=== PATIENT | female | born 1985 | race Caucasian/White ===

== ENCOUNTER 2025-03-16 18:32 | Emergency (ER) | payer MEDICAID, SELFPAY ==
--- OUTSIDE RECORDS SUMMARY | 2025-01-14 14:40 | XMS_ITS | Encounter Summary ---
Author Organization [place] [address] Care Team Providers Care Envelope Sealer Operator Name Role Phone Rodriguez Lindo Primary Care Provider [phone] Encounter Details Date Type Department Care Team (Latest Contact Info) Description 01/14/2025 2:40 PM EDT - 01/14/2025 11:59 PM EDT Hospital Encounter [facility] [place], [place] [id number] Malignant neoplasm of overlapping sites of left breast in female, estrogen receptor positive (HCC) (Primary Dx); Low back pain, unspecified back pain laterality, unspecified chronicity, unspecified whether sciatica present Discharge Disposition: Home or Self Care Social History Tobacco Use Types Packs/Day Years Used Date Smoking Tobacco: Every Day Cigarettes 0.5 22.4 Started: 11/03/2002 Smokeless Tobacco: Never Alcohol Use Standard Drinks/Week Comments Not Currently 0 (1 standard drink = 0.6 oz pur e alcohol) PHQ-2 Answer Date Recorded PHQ-2 Total Score 0 01/14/2025 Sexually Active Control Partners Comments Yes Comments No Sex and Gender Information Value Date Recorded Sex Assigned at Not on file Legal Sex Female 1:34 AM EDT Gender Identity Not on file Sexual Orientation Not on file documented as of this encounter Functional Status * PHQ-9 Total Score Answer Date of Assessment Author 0 01/14/2025 11:46 AM EDT Rin Chavez MA * Question Answer Date of Assessment Author Little interest or pleasure in doing things 0 01/14/2025 11:46 AM Tammy Bertrand MA Feeling down, depressed, or hopeless 0 01/14/2025 11:46 AM Tammy Bertrand MA PHQ-2 Total Score 0 01/14/2025 11:46 AM Tammy Bertrand MA documented as of this encounter Medications at Time of Discharge albuterol (PROVENTIL HFA;VENTOLIN HFA) 90 mcg/actuation Inhl HFA Aerosol Inhaler Inhale 2 Puffs into the lungs every 6 hours as needed. 09/10/2021 buPROPion (WELLBUTRIN SR) 150 mg Oral tablet sustained-release 12 hrIndications:Lesly bethea neoplasm of overlapping sites of left breast in female, estrogen receptor positive (HCC),Low back pain, unspecified back pain laterality, unspecified chronicity, unspecified whether sciatica present Take 1 Tablet by mouth 2 times daily. 60 Tablet 4 01/14/2025 ondansetron (ZOFRAN) 4 mg Oral TabletIndications: Malignant neoplasm of overlapping sites of left breast in female, estrogen receptor positive (HCC),Low back pain, unspecified back pain laterality, unspecified chronicity, unspecified whether sciatica present Take 1 Tablet by mouth every 8 hours as needed for Nausea. 45 Tablet 2 01/14/2025 oxybutynin (DITROPAN-XL) 5 mg Oral Tablet Extended Rel 24 hrIndications:Lesly bethea neoplasm of overlapping sites of left breast in female, estrogen receptor positive (HCC),Low back pain, unspecified back pain laterality, unspecified chronicity, unspecified whether sciatica present Take 1 Tablet by mouth daily. 30 Tablet 2 01/14/2025 promethazine (PHENERGAN) 12.5 mg Oral TabletIndications: Malignant neoplasm of overlapping sites of left breast in female, estrogen receptor positive (HCC),Low back pain, unspecified back pain laterality, unspecified chronicity, unspecified whether sciatica present Take 1 Tablet by mouth every 6 hours as needed for Nausea. 30 Tablet 2 01/14/2025 documented as of this encounter Discharge Disposition Disposition Code Departure Means Destination Home or Self Care documented in this encounter Plan of Treatment Upcoming Encounters Date Type Department Care Team (Late st Contact Info) Description 03/17/2025 1:00 PM EDT Appointment [facility] [place] [address] 04/15/2025 8:45 AM EDT Appointment [facility] [place], [place] [id number] 04/15/2025 9:15 AM EDT [facility]ment [facility] [place] [address] Vane Hollingsworth MD [address] [place] [phone] documented as of this encounter Procedures Procedure Name Priority Date/Time Associated Diagnosis Comments CBC WITH DIFF Routine 01/14/2025 2:59 PM EDT Malignant neoplasm of overlapping sites of left breast in female, estrogen receptor positive (HCC) Low back pain, unspecified back pain laterality, unspecified chronicity, unspecified whether sciatica present COMPREHENSIVE METABOLIC PANEL Routine 01/14/2025 2:59 PM EDT Malignant neoplasm of overlapping sites of left breast in female, estrogen receptor positive (HCC) Low back pain, unspecified back pain laterality, unspecified chronicity, unspecified whether sciatica present documented in this encounter Results * (ABNORMAL) COMPREHENSIVE METABOLIC PANEL (01/14/2025 2:59 PM EDT) Sodium 144 136 - 145 mmol/L 01/14/2025 3:26 PM EDT [facility] Potassium 4.2 3.5 - 5.0 mmol/L 01/14/2025 3:26 PM EDT [facility] Chloride 111(H) 98 - 107 mmol/L 01/14/2025 3:26 PM EDT [facility] Total CO2 24 22 - 29 mmol/L 01/14/2025 3:26 PM EDT [facility] Anion Gap 9 7 - 16 mmol/L 01/14/2025 3:26 PM EDT [facility] Calcium 8.9 8.6 - 10.4 mg/dL 01/14/2025 3:26 PM EDT [facility] Glucose Lvl 100(H) 70 - 99 mg/dL 01/14/2025 3:26 PM EDT [facility] BUN 10 6 - 20 mg/dL 01/14/2025 3:26 PM EDT [facility] Creatinine 0.89 0.51 - 1.30 mg/dL 01/14/2025 3:26 PM EDT [facility] Albumin 4.0 3.5 - 5.2 gm/dL 01/14/2025 3:26 PM EDT [facility] Total Protein 6.5 6.4 - 8.3 gm/dL 01/14/2025 3:26 PM EDT [facility] Bili Total <0.2(L) 0.2 - 1.3 mg/dL 01/14/2025 3:26 PM EDT [facility] ALT 7 <=41 U/L 01/14/2025 3:26 PM EDT [facility] AST 12 <=40 U/L 01/14/2025 3:26 PM EDT [facility] Alk Phos 79 36 - 123 U/L 01/14/2025 3:26 PM EDT [facility] eGFR (CKD-EPIcr 2020) 84 >=60 mL/min/1.7 3 m2 01/14/2025 3:26 PM EDT [facility] Comment:Estimated GFR was ca lculated using the CKD-EPIcr (2020) equation refit without race. The equation is recommended by the National Kidney Foundation - [place] [employer] of Nephrology Task Force. Blood VENOUS BLOOD / Unknown Venipuncture / Unknown 01/14/2025 2:59 PM EDT 01/14/2025 2:59 PM EDT us Vane Hollingsworth MD CHEMISTRY ORDERABLES Final Result [facility] [address] [place] [address] * (ABNORMAL) CBC WITH DIFF (01/14/2025 2:59 PM EDT) WBC 5.3 3.7 - 10.3 x10(3)/mc L 01/14/2025 3:02 PM EDT [facility] RBC 3.45(L) 3.90 - 5.20 x10(6)/mc L 01/14/2025 3:02 PM EDT [facility] Hgb 10.6(L) 11.2 - 15.7 g/dL 01/14/2025 3:02 PM EDT [facility] Hct 33.9(L) 34.0 - 45.0 % 01/14/2025 3:02 PM EDT [facility] MCV 98.3 80.0 - 100.0 fL 01/14/2025 3:02 PM EDT [facility] MCH 30.7 26.0 - 34.0 pg 01/14/2025 3:02 PM EDT [facility] MCHC 31.3 30.7 - 35.5 g/dL 01/14/2025 3:02 PM EDT [facility] RDW 15.0(H) <=14.9 % 01/14/2025 3:02 PM EDT [facility] Platelet 280 155 - 369 x10(3)/mc L 01/14/2025 3:02 PM EDT [facility] MPV 9.0 8.8 - 12.5 fL 01/14/2025 3:02 PM EDT [facility] Neut # Prelim 3.1 1.6 - 6.1 x10(3)/mc L 01/14/2025 3:02 PM [facility] Comment:Preliminary automate d absolute neutrophil count. Value may change if manual differential is indicated. Neut Percent 58.3 % 01/14/2025 3:02 PM EDT [facility] Comment:Neutrophils equals s egs plus bands Imm Gran% 0.2 % 01/14/2025 3:02 PM T [facility] Comment:Automated count of m etamyelocytes, myelocytes and promyelocytes. Lymph Percent 19.6 % 01/14/2025 3:02 PM EDT [facility] [place] Percent 17.1 % 01/14/2025 3:02 PM EDT [facility] Eos Percent 4.0 % 01/14/2025 3:02 PM EDT [facility] Baso Percent 0.8 % 01/14/2025 3:02 PM EDT [facility] Neut # 3.1 1.6 - 6.1 x10(3)/mc L 01/14/2025 3:02 PM EDT [facility] Comment:Neutrophils equals s egs plus bands IMMGRAN# 0.0 0.0 - 0.1 x10(3)/mc L 01/14/2025 3:02 PM EDT [facility] Comment:Automated count of m etamyelocytes, myelocytes and promyelocytes. An absolute IG <0.1 is reported as 0.0. Lymph # 1.0(L) 1.2 - 3.9 x10(3)/mc L 01/14/2025 3:02 PM EDT [facility] [place] # 0.9 0.3 - 0.9 x10(3)/mc L 01/14/2025 3:02 PM EDT [facility] Eos# 0.2 0.0 - 0.5 x10(3)/mc L 01/14/2025 3:02 PM EDT [facility] Baso # 0.0 0.0 - 0.1 x10(3)/mc L 01/14/2025 3:02 PM EDT [facility] Blood VENOUS BLOOD / Unknown Venipuncture / Unknown 01/14/2025 2:59 PM EDT 01/14/2025 2:59 PM EDT us Vane Hollingsworth MD HEMATOLOGY ORDERABLE S Final Result [facility] [address] [place] [address] documented in this encounter Visit Diagnoses Diagnosis Malignant neoplasm of overlapping sites of left breast in female, estrogen receptor positive (HCC)- Primary Low back pain, unspecified back pain laterality, unspecified chronicity, unspecified whether sciatica present documented in this encounter Administered Medications Inactive Administered Medications - up to 1 most recent administrations Medication Order MAR Action Action Date Dose Rate Site heparin flush 100 unit/mL injection 500 Units 500 Units, Intravenous, PRN, Starting on Fri01/14/25 at 1505, Until 01/15/25 at 0410, Line Care, For Venous Access Device care and maintenance., Dx: 1. Malignant neoplasm of overlapping sites of left breast in female, estrogen receptor positive (HCC)Indications:Malignant neoplasm of overlapping sites of left breast in female, estrogen receptor positive (HCC) Given 01/14/2025 3:06 PM EDT 500 Units sodium chloride 0.9 % sterile syringe Intravenous, PRN, Starting on Fri01/14/25 at 1505, Until 01/15/25 at 0410, Line Care, For initial access of Venous Access Device., Dx: 1. Malignant neoplasm of overlapping sites of left breast in female, estrogen receptor positive (HCC)Indications:Malignant neoplasm of overlapping sites of left breast in female, estrogen receptor positive (HCC) Given 01/14/2025 3:05 PM EDT 10 mL sodium chloride 0.9% syringe Intravenous, PRN, Starting on Fri01/14/25 at 1505, Until 01/15/25 at 0410, Line Care, For Venous Access Device care and maintenance., Dx: 1. Malignant neoplasm of overlapping sites of left breast in female, estrogen receptor positive (HCC)Indications:Malignant neoplasm of overlapping sites of left breast in female, estrogen receptor positive (HCC) Given 01/14/2025 3:05 PM EDT 10 mL documented in this encounter Care Teams Envelope Sealer Operator Relationship Specialty Start Date End Date Rodriguez Lindo [address] [place] [phone] PCP - General Clinic/Center - [facility] ([facility]) 12/03/16 documented as of this encounter
--- OUTSIDE RECORDS SUMMARY | 2025-02-01 08:00 | XMS_ITS | Encounter Summary ---
Author Organization [place] [address] Care Team Providers Care Property Field Inspector Name Role Phone Rodriguez Lindo Primary Care Provider +1- [phone] Poli Felix RN Unavailable Unavailable Encounter Details Date Type Department Care Team (Latest Contact Info) Description 02/01/2025 8:00 AM EDT - 02/01/2025 8:25 AM EDT Hospital Encounter [place] [address] Malignant neoplasm of overlapping sites of left [...] 02/01/2025 8:00 AM Laisha Bee MA * [place] Suicide Severity Rating Scale (Q shift for [...] PM EDT [facility]ointment [facility] [place], [place] [phone] 04/15/2025 8:45 AM EDT Appointment [place] [address] 04/15/2025 9:15 AM EDT [facility]ment [facility] [place] [address] Vane Hollingsworth MD [address] [place] [address] [phone] documented as of this encounter Procedures Procedure [...] - 145 mmol/L 02/01/2025 8:42 AM EDT [facility] Potassium 4.3 3.5 - 5.0 mmol/L 02/01/2025 8:42 AM EDT [facility] Chloride 105 98 - 107 mmol/L 02/01/2025 8:42 AM EDT [facility] Total CO2 21(L) 22 - 29 mmol/L 02/01/2025 8:42 AM EDT [facility] Anion Gap 14 7 - 16 mmol/L 02/01/2025 8:42 AM EDT [facility] Calcium 10.0 8.6 - 10.4 mg/dL 02/01/2025 8:42 AM EDT [facility] Glucose Lvl 128(H) 70 - 99 mg/dL 02/01/2025 8:42 AM EDT [facility] BUN 15 6 - 20 mg/dL 02/01/2025 8:42 AM EDT [facility] Creatinine 0.71 0.51 - 1.30 mg/dL 02/01/2025 8:42 AM EDT [facility] Albumin 4.3 3.5 - 5.2 gm/dL 02/01/2025 8:42 AM EDT [facility] Total Protein 7.2 6.4 - 8.3 gm/dL 02/01/2025 8:42 AM EDT [facility] Bili Total <0.2(L) 0.2 - 1.3 mg/dL 02/01/2025 8:42 AM EDT [facility] ALT 9 <=41 U/L 02/01/2025 8:42 AM EDT [facility] AST 16 <=40 U/L 02/01/2025 8:42 AM EDT [facility] Alk Phos 85 36 - 123 U/L 02/01/2025 8:42 AM EDT [facility] eGFR (CKD-EPIcr 2020) 109 >=60 mL/min/1.7 3 m2 02/01/2025 8:42 AM EDT [facility] Comment:Estimated GFR was ca lculated using the CKD-EPIcr (2020) equation refit without race. The equation is recommended by the National Kidney Foundation - [place] [employer] Nephrology Task Force. Blood VENOUS STRUCTURE / Unknown Port / Unknown 02/01/2025 8:24 AM EDT 02/01/2025 8:25 AM EDT us Vane Hollingsworth MD CHEMISTRY ORDERABLES Final Result [facility] [address] [phone] * (ABNORMAL) CBC WITH DIFF (02/01/2025 8:24 AM EDT) [facility] WBC 9.0 3.7 - 10.3 x10(3)/mc L 02/01/2025 8:[address] [facility] RBC 3.82(L) 3.90 - 5.20 x10(6)/mc L 02/01/2025 8:[address] [facility] Hgb 11.8 11.2 - 15.7 g/dL 02/01/2025 8:[address] [facility] Hct 36.6 34.0 - 45.0 % 02/01/2025 8:[address] [facility] MCV 95.8 80.0 - 100.0 fL 02/01/2025 8:[address] [facility] MCH 30.9 26.0 - 34.0 pg 02/01/2025 8:[address] [facility] MCHC 32.2 30.7 - 35.5 g/dL 02/01/2025 8:[address] [facility] RDW 14.2 <=14.9 % 02/01/2025 8:[address] [facility] Platelet 409(H) 155 - 369 x10(3)/mc L 02/01/2025 8:[address] [facility] MPV 9.3 8.8 - 12.5 fL 02/01/2025 8:[address] [facility] Neut # Prelim 8.0(H) 1.6 - 6.1 x10(3)/mc L 02/01/2025 8:[address] [facility] Comment:Preliminary automate d absolute neutrophil count. Value may change if manual differential is indicated. Neut Percent 89.4 % 02/01/2025 8:30 AM EDT [facility] Comment:Neutrophils equals s egs plus bands Imm Gran% 0.1 % 02/01/2025 8:30 AM EDT [facility] Comment:Automated count of m etamyelocytes, myelocytes and promyelocytes. Lymph Percent 6.7 % 02/01/2025 8:30 AM EDT [facility] [place] Percent 3.7 % 02/01/2025 8:30 AM EDT [facility] Eos Percent 0.0 % 02/01/2025 8:30 AM EDT [facility] Baso Percent 0.1 % 02/01/2025 8:30 AM EDT [facility] Neut # 8.0(H) 1.6 - 6.1 x10(3)/mc L 02/01/2025 8:[address] [facility] Comment:Neutrophils equals s egs plus bands IMMGRAN# 0.0 0.0 - 0.1 x10(3)/mc L 02/01/2025 8:30 AM EDT [facility] Comment:Automated count of m etamyelocytes, myelocytes and promyelocytes. An absolute IG <0.1 is reported as 0.0. Lymph # 0.6(L) 1.2 - 3.9 x10(3)/mc L 02/01/2025 8:30 AM EDT [facility] [place] # 0.3 0.3 - 0.9 x10(3)/mc L 02/01/2025 8:30 AM EDT [facility] Eos# 0.0 0.0 - 0.5 x10(3)/mc L 02/01/2025 8:30 AM EDT [facility] Baso # 0.0 0.0 - 0.1 x10(3)/mc L 02/01/2025 8:30 AM EDT [facility] Blood VENOUS STRUCTURE / Unknown Port / Unknown 02/01/2025 8:24 AM EDT 02/01/2025 8:25 AM EDT us Vane Hollingsworth MD HEMATOLOGY ORDERABLE S Final Result [facility] [address] [place] [address] documented in this encounter Visit Diagnoses Diagnosis Malignant neoplasm of overlapping sites of left breast in female, estrogen receptor positive (HCC)- Primary documented in this encounter Administered Medications Inactive Administered Medications - up to 1 most recent administrations Medication Order MAR Action Action Date Dose Rate Site sodium chloride 0.9 % sterile syringe 10 mL 10 mL, Intravenous, ONCE, 1 dose, On Tu02/01/25 at 0830, For initial access of Venous [...] 02/01/2025 documented in this encounter Care Teams Property Field Inspector Relationship Specialty Start Date End Date Guicho Rodriguez [address] [place] [phone] PCP - General Clinic/Center - [facility] ([facility]) 12/03/16 Poli Felix, PAMELA Registered Nurse Infusion Therapy 02/01/25 02/08/25 documented as of this encounter
--- OUTSIDE RECORDS SUMMARY | 2025-02-01 08:26 | XMS_ITS | Encounter Summary ---
Author Organization [place] [address] Care Team Providers Care Propulsion Systems Engineer Name Role Phone Rodriguez Lindo Primary Care Provider +1- [phone] Poli Felix RN Unavailable Unavailable Reason for Visit * Reason Comments Follow-up Breast Cancer Malignant neoplasm o f overlapping sites of left breast in female, estrogen receptor positive Chemotherapy Encounter Details Date Type Department Care Team (Latest Contact Info) Description 02/01/2025 8:26 AM EDT - 02/01/2025 9:07 AM EDT Hospital Encounter [facility] [place] [address] Ana Rosa Del Angel, [address] [place] [address] Malignant neoplasm of overlapping sites of left [...] 02/01/2025 8:00 AM Laisha Bee MA * [place] Suicide Severity Rating Scale (Q shift for [...] were not included. Patient: Anne Kearney CSN: [id number] Date of : 1985 Age: 40 y.o. Date of Service: 02/01/2025 HEMATOLOGY/ONCOLOGY NEW PATIENT OFFICE NOTE Primary Care Physician: Rodriguez Lindo Referring Physician: Ana Rosa Del Angel APRN Reason for Referral: Breast Cancer CURRENT TREATMENT: 12/15/2024 - TC X 4 (first cycle given in [place]) Outside oncology history: Diagnosis Invasive lobular carcinoma, 2 o'clock left breast, Jul 2024 Grade 2 ER 76%, ID 24%, HER-2 0/negative, Ki67 13% Stage IIB; pT2, pN1a Oncotype DX recurrence score: 17 [facility] BRCA 1/2 CancerNext genetic test: Positive pathogenic mutation detected: BRCA2 History Hepatitis C-treated Treatment Summary 07/29/24 Bilateral mastectomies with positive (09/13) left axillary SLNB by Dr Giovanna Tolentino/[facility] General Surgery 08/16/24 Initiated endocrine hormone therapy with Tamoxifen 20mg daily by Dr Oliverio Prescott/[facility] Medical Oncology 10/01/24 Prophylactic total hysterectomy with bilateral salpino-oophorectomy by Dr Ministerio Gamino/[facility] 10/11/24 - 12/01/24 Completed adjuvant radiation therapy with 5040cGy over 28 fractions to left breastby Dr Angelito Pierson/[facility] Radiation Oncology 10/18/24 Discontinue Tamoxifen. Initiate Letrozole 2.5mg daily by Dr Oliverio Prescott/[facility] Medical Oncology. 12/15/24 Taxotere, Cyclophosphamide + [...] in the pelvis. 06/18/24 Left diagnostic mammogram ([facility]): LEFT breast 4 mm oval, equal [...] nipple, core needle biopsies: Invasive lobular carcinoma. [place] histologic score Glandular differentiation: Score 3. Nuclear pleomorphism: Score 2. Mitotic rate: Score 1. Overall grade: Grade 2. Maximum tumor diameter is at least 1.4 cm. ER 76%, ID 24%, HER-2 0/negative, Ki67 13% 06/29/24 MRI [...] (1/6) left axillary SLNB by Dr Giovanna Tolentino/[facility] General Surgery 07/29/24 Left breast, total mastectomy: Invasive lobular carcinoma, grade 2. Lymph node, left axilla, sentinel, dissection: Two lymph nodes with no evidence of carcinoma (0/2). Confirmatory AE1/AE3 immunostain negative, control adequate. Lymph node, left axilla, additional palpable, dissection: Oneof four lymph nodes with metastatic lobular carcinoma (1/4). Largest metastatic focus = 4.0 mm. Extr anodal extension not identified. Confirmatory AE1/AE3 immunostain positive. Right breast, total mastectomy: Benign breast parenchyma with fibrocystic changes. AJCC pathology classification: pT2, pN1a. 08/16/24 Initiated endocrine hormone therapy with Tamoxifen 20mg daily by Dr Oliverio Prescott/[facility] Medical Oncology 08/16/24 [facility] labs: CEA 3.75, CA 27-29 14; CBC-WBC 14.6; ANC 8.7; ALC 4.2; Hgb 12.1; MCV 88.9; platelets 361,000; CMP WNL; ferritin 19, iron 34, fe sat 7% 08/18/24 CT chest ([facility]): No evidence of metastatic disease in the chest. Postoperative change of bilateral mastectomy. 08/18/24 CT abd/pelvis ([facility]): No evidence of metastatic disease in the abdomen or pelvis. 08/18/24 Bone scan ([facility]): No evidence of osteoblastic metastatic disease by bone scan. 08/30/24 Oncotype DX recurrence score: 17 09/16/[address] Angelito Pierson/[facility] Radiation Oncology who recommended adjuvant radiation therapy with 5040 cGy over 28 fractions to left breast/[facility] wall [facility]. 09/20/[address] Oliverio Presoctt/[facility] Medical Oncology who recommended referral to [facility] for prophylactic hysterectomy due to positive BRCA2 [...] + Ribociclib + Zometa. 09/27/24 Bone density ([facility]): Normal 10/01/24 Prophylactic total hysterectomy with bilateral salpino-oophorectomy by Dr [facility] 10/01/24 Uterus, cervix, bilateral tubes and ovaries, hysterectomy and bilateral salpingo-oophorectomy: Chronic cervicitis. Proliferative endometrium. Endometrial polyp. Adenomyosis. Completely transected right and left fallopian tubes and unremarkable fimbrial epithelial surface. Mesonephric cyst associated both left and right fallopian tubes. Corpora albicantia of right ovary.Corpora albicantia and 1 corpus hemorrhagicum of left ovary. Uterine weight of 141.7 g. 10/03/24 CT abd/pelvis ([facility]): Moderate pneumoperitoneum with scattered extraperitoneal air [...] fractions to left breast by Dr Angelito Pierson/[facility] Radiation Oncology 10/18/24 Follow-up evaluation with Dr Oliverio Prescott/[facility] Medical Oncology who recommended to discontinue Tamoxifen, initiate Letrozole 2.5mg daily and to anticipate adjuvant Taxotere 75mg/m2, Cyclophosphamide 600mg/m2 every 3 weeks x4 cycles 10/18/24 Discontinue Tamoxifen. Initiate Letrozole 2.5mg daily by Dr Oliverio Prescott/[facility] Medical Oncology 11/03/24 CT chest ([facility]): No acute abnormality in the chest. 11/03/24 US venous doppler upper right extremity (P): There is no evidence of deep venous thrombosis of the right upper extremity. There is partial nonocclusive superficial thrombus in the cephalic vein. 12/01/24 Completed adjuvant radiation therapy with 5040cGy over 28 fractions to left breast by Dr Angelito Pierson/[facility] Radiation Oncology 12/15/24 First dose of TC HISTORY OF PRESENT ILLNESS: CC: Chief Complaint Patient presents with Follow-up Breast Cancer Malignant neoplasm of overlapping sites of left breast in female, estrogen receptor positive Chemotherapy Patient is a 40 y.o. female who presents for breast cancer follow up and treatment. 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 she mentions she plans to stay with current pain specialist that is located in [place] as she does not want to get [...] Del Angel APRN Hematology and Medical Oncology [facility] documented in this encounter Plan of Treatment Upcoming Encounters Date Type Department Care Team (Late st Contact Info) Description 03/17/2025 1:00 PM EDT Appointment [facility] [place] [address] 04/15/2025 8:45 AM EDT Appointment [facility] [address] 04/15/2025 9:15 AM EDT [facility]ment [facility] [place] [address] Vane Hollingsworth MD [address] [place] [phone] documented as of this encounter Visit Diagnoses [...] documented as of this encounter Care Teams Propulsion Systems Engineer Relationship Specialty Start Date End Date [facility] [address] [place] [address] PCP - General Clinic/Center - [facility] ([facility]) 12/03/16 Poli Felix, PAMELA Registered Nurse Infusion Therapy 02/01/25 02/08/25 documented as of this encounter
--- OUTSIDE RECORDS SUMMARY | 2025-02-01 09:08 | XMS_ITS | Encounter Summary ---
Author Organization [place] [address] Care Team Providers Care Life Insurance Specialist Name Role Phone Rodriguez Lindo Primary Care Provider +1- [phone] Poli Felix RN Unavailable Unavailable Reason for Visit * Oncology Medication Prior Authorization (Routine) - Authorized Specialty Diagnoses / Procedures Referred By Contjo t Referred To Contact Diagnoses Malignant neoplasm of overlapping sites of left breast in female, estrogen receptor positive (HCC) Procedures ONCOLOGY MEDICATION AUTHORIZATION Vane Hollingsworth MD [address] [place] [address] Phone: tel: fax: Vane Hollingsworth MD [address] [place] [address] Phone: tel: fax: Referral ID Status Reason Start Date Expiration Date V isits Requested Visits Authorized [id number] Authorized 01/21/2025 01/21/2026 1 6 Encounter Details Date Type Department Care Team (Latest Contact Info) Description 02/01/2025 9:08 AM EDT - 02/01/2025 11:59 PM EDT Hospital Encounter [facility] [place] [address] Malignant neoplasm of overlapping sites [...] 02/01/2025 8:00 AM Laisha Bee MA * [place] Suicide Severity Rating Scale (Q shift for [...] this encounter Progress Notes * Chasity Garcia, [facility] - 02/01/2025 9:30 AM EDT Pharmacy Chemotherapy [...] chemo, [facility] Concurrent Radiation No, completed [...] SQ ordered. Received with first cycle at [facility] INTERACTIONS Potentially clinically important drug interactions [...] Felix RN - 02/01/2025 9:30 AM EDT [facility] Discharge Instructions Thank you for entrusting the [facility] with your care. We hope you are [...] infection DON'T WAIT, PLEASE CALL US FIRST [phone]. [FOR URGENT ISSUES PLEASE DO NOT LEAVE A MESSAGE, FOLLOW PROMPTS TO THE DOCTOR TEST OPERATOR] For Gynecology / Oncology call : [phone] Our hours of operation are Friday - Friday 8:00 AM - 4:30 PM. [facility] Scott Johnson [address] [address] [place] [address] [place] [address] Results for orders placed or performed [...] Gran% 0.1 % Lymph Percent 6.7 % [place] Percent 3.7 % Eos Percent 0.0 % Baso Percent 0.1 % Neut # 8.0 (H) 1.6 - 6.1 x10(3)/mcL IMMGRAN# 0.0 0.0 - 0.1 x10(3)/mcL Lymph # 0.6 (L) 1.2 - 3.9 x10(3)/mcL [place] # 0.3 0.3 - 0.9 x10(3)/mcL Eos# [...] PM EDT Appointment [facility] [place] [address] 04/15/2025 8:45 AM EDT Appointment [facility] [place], [place] [id number] 04/15/2025 9:15 AM EDT [facility]ointment [facility] [place] [address] Vane Hollingsworth MD [address] [place] [address] documented as of this encounter Visit Diagnoses [...] at 0930, Until Fri02/02/25 at 0405, For telegraph lineman during chemotherapy infusion., Dx: 1. Malignant neoplasm [...] mL documented in this encounter Care Teams Life Insurance Specialist Relationship Specialty Start Date End Date [facility] [address] [place] [phone] PCP - General Clinic/Center - [facility] ([facility]) 12/03/16 Poli Felix, PAMELA Registered Nurse Infusion Therapy 02/01/25 02/08/25 documented as of this encounter
--- OUTSIDE RECORDS SUMMARY | 2025-02-02 13:30 | XMS_ITS | Encounter Summary ---
Author Organization [place] [address] Care Team Providers Care Consulting Psychiatrist Name Role Phone Rodriguez Lindo Primary Care Provider +1- [phone] Poli Felix RN Unavailable Unavailable Aydee Westbrook RN Unavailable Unavailable Reason for Referral * Consultation (Routine) - Authorization Not Needed Specialty Diagnoses / Procedures Referred By Contac t Referred To Contact Oncology Diagnoses Malignant neoplasm of overlapping sites of left breast in female, estrogen receptor positive (HCC) Procedures CANCER CARE NUTRITION COMMUNICATION Vane Hollingsworth MD 1 [place] [address] Phone: tel: fax: [place] [address] Phone: tel: Referral ID Status Reason Start Date Expiration Date Visits Requested Visits Authorized [id number] Authorization Not Needed 02/02/2025 02/02/2026 1 1 Reason for Visit * Oncology Medication Prior Authorization (Routine) - Authorized Specialty Diagnoses / Procedures Referred By Contjo t Referred To Contact Diagnoses Malignant neoplasm of overlapping sites of left breast in female, estrogen receptor positive (HCC) Procedures ONCOLOGY MEDICATION AUTHORIZATION Vane Hollingsworth MD [address] [place] [address] Phone: tel: fax: Vane Hollingsworth MD [address] [place] [address] Phone: tel: fax: Referral ID Status Reason Start Date Expiration Date V isits Requested Visits Authorized [id number] Authorized 01/21/2025 01/21/2026 1 6 Encounter Details Date Type Department Care Team (Latest Contact Info) Description 02/02/2025 1:30 PM EDT - 02/02/2025 11:59 PM EDT Hospital Encounter [place] [address] Malignant neoplasm of overlapping sites of left [...] Instructions Thank you for entrusting the [facility] with your care. We hope you are [...] infection DON'T WAIT, PLEASE CALL US FIRST [phone]. [FOR URGENT ISSUES PLEASE DO NOT LEAVE A MESSAGE, FOLLOW PROMPTS TO THE DOCTOR VESSEL SLAG WORKER] For Gynecology / Oncology call : [phone] Our hours of operation are Friday - Friday 8:00 AM - 4:30 PM. [facility] [id number] [place], [place] [id number] [place], [place] [id number] [address] [address] No results found for any visits on 02/02/25. documented in this encounter Plan of Treatment Upcoming Encounters Date Type Department Care Team (Late st Contact Info) Description 03/17/2025 1:00 PM EDT Appointment [facility] [place], [place] [id number] 04/15/2025 8:45 AM EDT Appointment [facility] [place], [place] [id number] 04/15/2025 9:15 AM EDT Appointment [facility] [place], [place] [id number] Vane Hollingsworth MD [address] [place] [address] documented as of this encounter Visit Diagnoses [...] 02/02 documented in this encounter Care Teams Consulting Psychiatrist Relationship Specialty Start Date End Date Guicho Rodriguez [address] [place] [address] PCP - General Clinic/Center - [facility] 12/03/16 Poli Felix, RN Registered Nurse Infusion Therapy 02/01/25 02/08/25 Aydee Westbrook, PAMELA Registered Nurse Infusion Therapy 02/02/25 02/02/25 documented as of this encounter
--- OUTSIDE RECORDS SUMMARY | 2025-02-07 16:00 | XMS_ITS | Encounter Summary ---
Demographics Address [address] [place] [phone] Mobile Phone Email Address Preferred Language en Marital Status Baptist Affiliation Unknown Race White Ethnic Group Not or Lati no Author Organization Healthcare Address [address] [place] [address] Care Team Providers Care Server Security Administrator Name Role Phone Pcp, No Primary Care Provider Unavailabl e Reason for Referral * Consultation (Routine) - Canceled Specialty Diagnoses / Procedures Referred By Contac t Referred To Contact Blood and Marrow Transplant Diagnoses Cancer associated pain Donnell Cisneros DO [address] [place] [address] Phone: tel: fax: [facility] Hematology/BMT and Cellular Therapy Program [address] [place] [address] [place] [address] Phone: tel: fax: Referral ID Status Reason Start Date Expiration Date V isits Requested Visits Authorized [id number] Canceled 02/07/2025 08/09/2026 1 1 Reason for Visit * Reason Comments Pain Management Encounter Details Date Type Department Care Team ([facility] [place] [facility] Contact Info) Description 02/07/2025 4:00 PM EDT - 02/07/2025 6:31 PM EDT Emergency [facility] Emergency Department [address] [place] [address] Donnell Cisneros DO [address] [place] [address] Cancer associated pain (Primary Dx) [...] she usually sees pain management in [facility] howeverher heme/Onc physician recently wrote her oxycodone 10s. States that her refill was due on 01/28/2025 however she was not able to pick it up and is not able to to get back to [facility] to her pain management clinic for assessment for refills. She does have an appointment scheduled for a new pain management clinic here in [place] on 03/03/2025. Denies any recent injuries, nausea [...] normal. No congestion or rhinorrhea. Mouth/Throat: Lips: [place]. Mouth: Mucous membranes are moist. Pharynx: Oropharynx [...] she usually sees pain management in [facility] however her heme/Onc physician recently wrote her oxycodone 10s. States that her refill was due on 01/28/2025 however she was not able to pick it up and is not able to to get back to [facility] to her pain management clinic for assessment for refills. She does have an appointment scheduled for a new pain management clinic here in [place] on 03/03/2025. Denies any recent injuries, nausea [...] DONNELL CISNEROS Clinical Impressions as of 02/09/25 6620 Cancer associated pain Social Determinates of Health [...] further evaluation and management. Disposition Discharge AVS (Faroese Snapshot) - Printed 02/07/2025 Follow-Ups: Follow up with [facility] Hematology/BMT and Cellular Therapy Program (Blood and Marrow Transplant) Discharge Orders Discharge Ambulatory referral to Adult Palliative Care Authorized - [1] No past medical history on file. [2] No past surgical history on file. [3] No family history on file. [4] [5] Not on File Donnell Cisneros DO 02/09/25 2601 * ED Triage Notes - Raysa Rivero [...] - ED (02/07/2025 5:00 PM EDT) Pathologist [facility] Hepatitis C Virus (HCV) Quantitative Interpretation Not Detected Not Detected. 02/08/2025 2:54 PM EDT [facility] Blood Venous blood specimen / Unknown Venipuncture / Unknown 02/07/2025 5:00 PM EDT 02/07/2025 5:10 PM EDT Narrative [facility] - 02/08/2025 2:54 PM [...] ORDERABLES Final Resul t Performing Organization Address City/[facility] Co de Phone Number [facility] [address] [place] [address] * ED HIV 1/2 Antibody/Antigen Screen w/Reflex to HIV 1/2 Differentiation (02/07/2025 5:00 PM EDT) [facility] HIV 1 & 2 Antibody/Antigen Screen Non Reactive Non Reactive 02/07/2025 7:11 PM EDT [facility] Comment:Screening for HIV 1 & 2 antibodies, and P24 antigen is NONREACTIVE. No confirmatory testing is required. Blood Venous blood specimen / Unknown Venipuncture / Unknown 02/07/2025 5:00 PM EDT 02/07/2025 5:10 PM EDT us Jose R Muniz MD LAB BLOOD ORDERABLES Final Resul t Performing Organization Address City/[facility]/ZIP Co de Phone Number [facility] [address] [place] [address] * (ABNORMAL) Hepatitis C Antibody - ED (02/07/2025 5:00 PM EDT) Pathologist [facility] Hepatitis C Antibody Positive(A ) Negative 02/07/2025 6:33 PM EDT [facility] Blood Venous blood specimen / Unknown Venipuncture / Unknown 02/07/2025 5:00 PM EDT 02/07/2025 5:10 PM EDT us Jose R Muniz MD LAB BLOOD ORDERABLES Final Resul t [facility] [address] [place] [address] * (ABNORMAL) CBC (02/07/2025 5:00 PM EDT) Pathologist [facility] WBC Count 3.22(L) 3.70 - 10.30 10*3/uL LAB HEMATOLOGY METHOD 02/07/2025 5:29 PM EDT [facility] RBC Count 3.44(L) 3.90 - 5.20 10*6/uL LAB HEMATOLOGY METHOD 02/07/2025 5:29 PM EDT [facility] HGB 10.4(L) 11.2 - 15.7 g/dL LAB HEMATOLOGY METHOD 02/07/2025 5:29 PM EDT [facility] HCT 31.8(L) 34.0 - 45.0 % LAB HEMATOLOGY METHOD 02/07/2025 5:29 PM EDT [facility] Platelet Count 212 155 - 369 10*3/uL LAB HEMATOLOGY METHOD 02/07/2025 5:29 PM EDT [facility] MCV 92 79 - 98 fL LAB HEMATOLOGY METHOD 02/07/2025 5:29 PM EDT [facility] MCH 30.2 26.0 - 32.0 pg LAB HEMATOLOGY METHOD 02/07/2025 5:29 PM EDT [facility] MCHC 32.7 30.7 - 35.5 g/dL LAB HEMATOLOGY METHOD 02/07/2025 5:29 PM EDT [facility] RDW 13.7 11.5 - 14.5 % LAB HEMATOLOGY METHOD 02/07/2025 5:29 PM EDT [facility] MPV 10.4 8.8 - 12.5 fL LAB HEMATOLOGY METHOD 02/07/2025 5:29 PM EDT [facility] nRBC 1.2(H) <=0.0 per 100 WBCs LAB HEMATOLOGY METHOD 02/07/2025 5:29 PM EDT [facility] Blood Venous blood specimen / Unknown Venipuncture / Unknown 02/07/2025 5:00 PM EDT 02/07/2025 5:09 PM EDT us Jose R Muniz MD LAB BLOOD ORDERABLES Final Resul t [facility] [address] [place] [address] * (ABNORMAL) CMP (02/07/2025 5:00 PM EDT) Glucose, Plasma 78 74 - 99 mg/dL 02/07/2025 5:32 PM EDT [facility] BUN, Plasma 8 7 - 21 mg/dL 02/07/2025 5:32 PM EDT [facility] Creatinine, Plasma 0.65 0.60 - 1.10 mg/dL 02/07/2025 5:32 PM EDT [facility] BUN/Creatinine Ratio 12 02/07/2025 5:32 PM EDT [facility] Sodium, Plasma 134(L) 136 - 145 mmol/L 02/07/2025 5:32 PM EDT [facility] Potassium, Plasma 4.0 3.6 - 4.9 mmol/L 02/07/2025 5:32 PM EDT [facility] Chloride, Plasma 102 97 - 107 mmol/L 02/07/2025 5:32 PM EDT [facility] CO2, Plasma 24 22 - 29 mmol/L 02/07/2025 5:32 PM EDT [facility] Anion Gap 8 6 - 16 mmol/L 02/07/2025 5:32 PM EDT [facility] Total Calcium, Plasma 9.1 8.9 - 10.2 mg/dL 02/07/2025 5:32 PM EDT [facility] Total Protein 6.5 6.3 - 7.9 g/dL 02/07/2025 5:32 PM EDT [facility] Albumin, Plasma 4.0 3.5 - 5.2 g/dL 02/07/2025 5:32 PM EDT [facility] AST, Plasma 20 10 - 35 U/L 02/07/2025 5:32 PM EDT [facility] ALT, Plasma 22 10 - 35 U/L 02/07/2025 5:32 PM EDT [facility] Alkaline Phosphatase, Plasma 98 35 - 104 U/L 02/07/2025 5:32 PM EDT [facility] Total Bilirubin, Plasma 0.3 0.2 - 1.1 mg/dL 02/07/2025 5:32 PM EDT [facility] eGFRcr 113.6 mL/min/1.7 3m*2 02/07/2025 5:32 PM EDT [facility] Comment:Reported eGFRcr in m L/min/1.73m2 is based the CKD-EPI 2020 equation that does not use a race coefficient. Blood Venous blood specimen / Unknown Venipuncture / Unknown 02/07/2025 5:00 PM EDT 02/07/2025 5:09 PM EDT us Jose R Muniz MD LAB BLOOD ORDERABLES Final Resul t [facility] [address] [place] [address] documented in this encounter Visit Diagnoses Diagnosis [...] RN) documented in this encounter Care Teams Server Security Administrator Relationship Specialty Start Date End Date Pcp, Mounika [address] [place] [address] PCP - General Family Medicine 02/07/25 documented as of this encounter
--- OUTSIDE RECORDS SUMMARY | 2025-02-09 08:15 | XMS_ITS | Encounter Summary ---
Author Organization [place] [address] Care Team Providers Care Asbestos Wire Finisher Name Role Phone Rodriguez Lindo Primary Care Provider +1- [phone] Eden Noble RN Unavailable Unavailable Encounter Details Date Type Department Care Team (Latest Contact Info) Description 02/09/2025 8:15 AM EDT - 02/09/2025 8:29 AM EDT Hospital Encounter [facility] [place] [phone] Malignant neoplasm of overlapping sites of left [...] PM EDT [facility]ointment [place] [address] 04/15/2025 8:45 AM EDT Appointment [place] [address] 04/15/2025 9:15 AM EDT [facility]ment [facility] [place] [address] Vane Hollingsworth MD [address] [place] [phone] documented as of this encounter Procedures Procedure [...] MAGNESIUM LEVEL (02/09/2025 8:45 AM EDT) Pathologist [facility] Magnesium 2.1 1.6 - 2.4 mg/dL 02/09/2025 9:32 AM EDT [facility] Blood VENOUS STRUCTURE / Unknown Medicare Port / Unknown 02/09/2025 8:45 AM EDT 02/09/2025 8:46 AM EDT [facility] DIRECTOR OF RESEARCH CHEMISTRY ORDERABLES Ernestine l Result [facility] [address] [place] [address] * (ABNORMAL) COMPREHENSIVE METABOLIC PANEL (02/09/2025 8:45 AM EDT) Pathologist [facility] Sodium 142 136 - 145 mmol/L 02/09/2025 9:32 AM EDT [facility] Potassium 3.4(L) 3.5 - 5.0 mmol/L 02/09/2025 9:32 AM EDT [facility] Chloride 107 98 - 107 mmol/L 02/09/2025 9:32 AM EDT [facility] Total CO2 23 22 - 29 mmol/L 02/09/2025 9:32 AM EDT [facility] Anion Gap 12 7 - 16 mmol/L 02/09/2025 9:32 AM EDT [facility] Calcium 9.3 8.6 - 10.4 mg/dL 02/09/2025 9:32 AM EDT [facility] Glucose Lvl 101(H) 70 - 99 mg/dL 02/09/2025 9:32 AM EDT [facility] BUN 10 6 - 20 mg/dL 02/09/2025 9:32 AM EDT [facility] Creatinine 0.77 0.51 - 1.30 mg/dL 02/09/2025 9:32 AM EDT [facility] Albumin 4.0 3.5 - 5.2 gm/dL 02/09/2025 9:32 AM EDT [facility] Total Protein 6.3(L) 6.4 - 8.3 gm/dL 02/09/2025 9:32 AM EDT [facility] Bili Total <0.2(L) 0.2 - 1.3 mg/dL 02/09/2025 9:32 AM EDT [facility] ALT 15 <=41 U/L 02/09/2025 9:32 AM EDT [facility] AST 23 <=40 U/L 02/09/2025 9:32 AM EDT [facility] Alk Phos 109 36 - 123 U/L 02/09/2025 9:32 AM EDT [facility] eGFR (CKD-EPIcr 2020) 99 >=60 mL/min/1.7 3 m2 02/09/2025 9:32 AM EDT [facility] Comment:Estimated GFR was ca lculated using the CKD-EPIcr (2020) equation refit without race. The equation is recommended by the National Kidney Foundation - [place] Society of Nephrology Task Force. Blood VENOUS STRUCTURE / Unknown Medicare Port / Unknown 02/09/2025 8:45 AM EDT 02/09/2025 8:46 AM EDT us [facility] DIRECTOR OF RESEARCH CHEMISTRY ORDERABLES Ernestine l Result [facility] [address] [place] [phone] * (ABNORMAL) CBC WITH DIFF (02/09/2025 8:45 AM EDT) WBC 28.7(H) 3.7 - 10.3 x10(3)/mc L 02/09/2025 9:45 AM EDT [employer] Comment:This is an appended report. These results have been appended to a previously preliminary verified report. RBC 3.12(L) 3.90 - 5.20 x10(6)/mc L 02/09/2025 9:45 AM EDT [facility] Hgb 9.6(L) 11.2 - 15.7 g/dL 02/09/2025 9:45 AM EDT [facility] Hct 29.9(L) 34.0 - 45.0 % 02/09/2025 9:45 AM EDT [facility] MCV 95.8 80.0 - 100.0 fL 02/09/2025 9:45 AM EDT [facility] MCH 30.8 26.0 - 34.0 pg 02/09/2025 9:45 AM EDT [facility] MCHC 32.1 30.7 - 35.5 g/dL 02/09/2025 9:45 AM EDT [facility] RDW 13.9 <=14.9 % 02/09/2025 9:45 AM EDT [facility] Platelet 217 155 - 369 x10(3)/mc L 02/09/2025 9:45 AM EDT [facility] MPV 9.5 8.8 - 12.5 fL 02/09/2025 9:45 AM EDT [facility] NRBC Auto % 0.8(H) [...] 9:45 AM EDT [facility] [place] # 2.3(H) 0.3 - 0.9 x10(3)/mc L [...] AM EDT 02/09/2025 8:46 AM EDT [place] [facility] DIRECTOR OF RESEARCH HEMATOLOGY ORDERABLES Fin al Result [address] [address] [facility], [address] , [place] [address] documented in this encounter Visit [...] 12/2024 documented in this encounter Care Teams Asbestos Wire Finisher Relationship Specialty Start Date End Date Rodriguez Lindo [address] [place] [id number] PCP - General Clinic/Center [facility]) 12/03/16 Eden Noble RN Registered Nurse Infusion Therapy 02/09/25 02/09/25 documented as of this encounter
--- OUTSIDE RECORDS SUMMARY | 2025-02-09 08:30 | XMS_ITS | Encounter Summary ---
Author Organization [place] [address] Care Team Providers Care Floor Layer Tile Name Role Phone Rodriguez Lindo Primary Care Provider +1- [phone] Eden Noble RN Unavailable Unavailable Reason for Visit * Reason Comments Follow-up Breast Cancer Malignant neoplasm o f overlapping sites of left breast in female, estrogen receptor positive (HCC) Encounter Details Date Type Department Care Team (Latest Contact Info) Description 02/09/2025 8:30 AM EDT - 02/09/2025 8:59 AM EDT Hospital Encounter [facility] [place] [address] Ana Rosa Del Angel, [address]ART[address] [place] [address] Antineoplastic chemotherapy induced anemia (Primary Dx) Discharge [...] Progress Notes * Ana Rosa Del Angel, TANNERY GUMMER - 02/09/2025 8:30 AM EDT Images from the original note were not included. Patient: Anne Kearney CSN: [id number] Date of : 1985 Age: 40 y.o. Date of Service: 02/09/2025 HEMATOLOGY/ONCOLOGY NEW PATIENT OFFICE NOTE Primary Care Physician: Rodriguez Lindo Referring Physician: Ana Rosa Del Angel APRN Reason for Referral: Breast Cancer CURRENT TREATMENT: 12/15/2024 - TC X 4 (first cycle given in [place]) Outside oncology history: Diagnosis Invasive lobular carcinoma, 2 o'clock left breast, Jul 2024 Grade 2 ER 76%, ID 24%, HER-2 0/negative, Ki67 13% Stage IIB; pT2, pN1a Oncotype DX recurrence score: 17 [facility] BRCA 1/2 CancerNext genetic test: Positive pathogenic mutation detected: BRCA2 History Hepatitis C-treated Treatment Summary 07/29/24 Bilateral mastectomies with positive (09/13) left axillary SLNB by Dr Giovanna Tolentino/[facility] General Surgery 08/16/24 Initiated endocrine hormone therapy with Tamoxifen 20mg daily by Dr Oliverio Prescott/[facility] Medical Oncology 10/01/24 Prophylactic total hysterectomy with bilateral salpino-oophorectomy by Dr Ministerio Gamino/[facility] 10/11/24 - 12/01/24 Completed adjuvant radiation therapy with 5040cGy over 28 fractions to left breastby Dr Angelito Pierson/[facility] Radiation Oncology 10/18/24 Discontinue Tamoxifen. Initiate Letrozole 2.5mg daily by Dr Oliverio Prescott/[facility] Medical Oncology. 12/15/24 Taxotere, Cyclophosphamide + [...] axillary or internal mammary lymphadenopathy identified. 06/29/24 FatSkunk 1/2 CancerNext genetic test: Positive pathogenic mutation detected: BRCA2 Bilateral mastectomies with positive (1/6) left axillary SLNB by Dr Giovanna Tolentino/[facility] General Surgery 07/29/24 Left breast, total [...] with Tamoxifen 20mg daily by Dr Oliverio Prescott/[facility] Medical Oncology 08/16/24 [facility] labs: CEA 3.75, CA 27-29 14; CBC-WBC 14.6; ANC 8.7; ALC 4.2; Hgb 12.1; MCV 88.9; platelets 361,000; CMP WNL; ferritin 19, iron 34, fe sat 7% 08/18/24 CT chest ([facility]): No evidence of metastatic disease in the chest. Postoperative change of bilateral mastectomy. 08/18/24 CT abd/pelvis ([facility]): No evidence of metastatic disease in the abdomen or pelvis. 08/18/24 Bone scan ([facility]): No evidence of osteoblastic metastatic disease by bone scan. 08/30/24 Oncotype DX recurrence score: 17 09/16/[address] Angelito Pierson/[facility] Radiation Oncology who recommended adjuvant radiation therapy with 5040 cGy over 28 fractions to left breast/left chest wall [facility]. 09/20/[address] Oliverio Prescott/[facility] Medical Oncology who recommended referral to [facility] for prophylactic hysterectomy due to positive BRCA2 gene, to proceed with [facility] consult, to proceed with radiation therapy after [facility] consult and adjuvant Taxotere 75mg/m2, Cyclophosphamide 600mg/m2 every 3 weeks x4 cycles, but to hold until [facility] consult completed. 09/23/[address] Lit Sheets/[facility] Breast Medical Oncology who recommended adjuvantTaxotere Cyclophosphamide x4 cycles followed by adjuvant Aromatase inhibitor + Ribociclib + Zometa. 09/27/24 Bone density (P): Normal 10/01/24 Prophylactic total hysterectomy with bilateral salpino-oophorectomy by Dr Ministerio Gamino/[facility] 10/01/24 Uterus, cervix, bilateral tubes and ovaries, hysterectomy and bilateral salpingo-oophorectomy: Chronic cervicitis. Proliferative endometrium. Endometrial polyp. Adenomyosis. Completely transected right and left fallopian tubes and unremarkable fimbrial epithelial surface. Mesonephric cyst associated both left and right fallopian tubes. Corpora albicantia of right ovary.Corpora albicantia and 1 corpus hemorrhagicum of left ovary. Uterine weight of 141.7 g. 10/03/24 CT abd/pelvis ([facility]): Moderate pneumoperitoneum with scattered extraperitoneal air [...] fractions to left breast by Dr Angelito Pierson/[facility] Radiation Oncology 10/18/24 Follow-up evaluation with Dr Oliverio Prescott/[facility] Medical Oncology who recommended to discontinue Tamoxifen, initiate Letrozole 2.5mg daily and to anticipate adjuvant Taxotere 75mg/m2, Cyclophosphamide 600mg/m2 every 3 weeks x4 cycles 10/18/24 Discontinue Tamoxifen. Initiate Letrozole 2.5mg daily by Dr Oliverio Prescott/[facility] Medical Oncology 11/03/24 CT chest ([facility]): No acute abnormality in the chest. 11/03/24 US venous doppler upper right extremity ([facility]): There is no evidence of deep venous thrombosis of the right upper extremity. There is partial nonocclusive superficial thrombus in the cephalic vein. 12/01/24 Completed adjuvant radiation therapy with 5040cGy over 28 fractions to left breast by Dr Angelito Pierson/[facility] Radiation Oncology 12/15/24 First dose of TC HISTORY OF PRESENT ILLNESS: CC: Chief Complaint Patient presents with Follow-up Breast Cancer Malignant neoplasm of overlapping sites of left breast in female, estrogen receptor positive (HCC) Patient is a 40 y.o. female who presents for breast cancer follow up and treatment. First dose of TC in [place] and moved locally and here to [...] [place] No nausea, some abdominal discomfort +BM last night normal To see new [place]CP on [place]30 in [place] - Dr. Garza Has scheduled pain visit on 01/[address] 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 Dr. Hollingsworth will [...] Del Angel APRN Hematology and Medical Oncology [facility] documented in this encounter Plan of Treatment Upcoming Encounters Date Type Department Care Team (Late st Contact Info) Description 03/17/2025 1:00 PM EDT [facility]ointment [facility] [place] [address] 04/15/2025 8:45 AM EDT Appointment [place] [address] 04/15/2025 9:15 AM EDT [facility]ointment [facility] [place] [address] Vane Hollingsworth MD [address] [place] [id number] documented as of this encounter Results * (ABNORMAL) RETICULOCYTE PANEL DIAGNOSTIC (02/14/2025 11:01 AM EDT) Retic Cnt Auto 3.9(H) 0.9 - 2.5 % 02/14/2025 11:15 AM EDT [facility] Retic # 135.5(H) 40.0 - 110.0 x10(3)/mcL 02/14/2025 11:15 AM EDT [facility] Imm. Retic Fraction % 29.1(H) 3.1 - 17.6 % 02/14/2025 11:15 AM EDT [facility] Retic Hgb 35.1 28.0 - 38.0 pg 02/14/2025 11:15 AM EDT [facility] [employer] [employer] [facility] Blood VENOUS STRUCTURE / Unknown Port / Unknown 02/14/2025 11:01 AM EDT 02/14/2025 11:04 AM EDT Narrative [facility] [employer] - 02/14/2025 11:15 AM EDT Reticulocyte hemoglobin [...] et al. 2017. Int J Hematol 106:116-125. (2)Law J., et al. 2017. Nutrients 9:450. (3)Angella Echavarria., et al. 2014. Am J Clin Pathol 142:506-512. (4)Erlinda Rivas., et al. 2010. Blood 116:0757-3291. Ana Rosa Del Angel APRN HEMATOLOGY ORDERABLES Ernestine pinedo Result [facility] [employer] [address] [facility] , [place] [address] * FERRITIN (02/14/2025 11:01 AM EDT) Ferritin 144 30 - 150 ng/mL 02/14/2025 12:02 PM EDT [facility] [employer] [facility] Comment:The lower threshold of 30 is not [...] 02/14/2025 11:04 AM EDT Narrative [facility], [facility] - 02/14/2025 12:02 PM EDT Ingestion of manda doses of biotin (>5 mg/day) taken within 8 hours of drawing blood sample can interfere with this immunoassay test. Ana Rosa Jose GuadalupeFractal OnCall Solutions[employer]ur TANNERY GUMMER CHEMISTRY ORDERABLES Final Result Performing Organization Address [facility] Co de Phone Number [facility] [place], [facility] [address] [facility] , [place] [address] * IRON+TIBC (02/14/2025 11:01 AM EDT) Iron 63 30 - 160 mcg/dL 02/14/2025 12:02 PM EDT [facility], [facility] Transferrin 205 200 - 360 mg/dL 02/14/2025 12:02 PM EDT [facility] [place], [facility] Transferrin Saturation 22 20 - 50 % 02/14/2025 12:02 PM EDT [facility] [place], [facility] TIBC 287 250 - 400 mcg/dL 02/14/2025 12:02 PM EDT [facility] [place], [facility] Blood VENOUS STRUCTURE / Unknown Port / Unknown 02/14/2025 11:01 AM EDT 02/14/2025 11:04 AM EDT Ana Rosa Jose Guadalupe'Onur TANNERY GUMMER CHEMISTRY ORDERABLES Final Result Performing Organization Address [facility]/ZIP Co de Phone Number [facility] [place], [facility] [address] [facility] , [place] [address] * (ABNORMAL) CBC WITH DIFF (02/14/2025 11:01 AM EDT) WBC 9.3 3.7 - 10.3 x10(3)/mc L 02/14/2025 11:08 AM EDT [facility] RBC 3.50(L) 3.90 - 5.20 x10(6)/mc L 02/14/2025 11:08 AM [facility] Hgb 10.7(L) 11.2 - 15.7 g/dL 02/14/2025 11:[facility] Hct 34.3 34.0 - 45.0 % 02/14/2025 11:08 AM [facility] MCV 98.0 80.0 - 100.0 fL 02/14/2025 11:08 [facility] MCH 30.6 26.0 - 34.0 pg 02/14/2025 11:08 AM [facility] MCHC 31.2 30.7 - 35.5 g/dL 02/14/2025 11:08 AM [facility] RDW 14.9 <=14.9 % 02/14/2025 11:08 AM [facility] Platelet 194 155 - 369 x10(3)/mc L 02/14/2025 11:08 AM [facility] MPV 9.2 8.8 - 12.5 fL 02/14/2025 11:08 AM [facility] Neut # Prelim 6.5(H) 1.6 - 6.1 x10(3)/mc L 02/14/2025 11:08 AM [facility] Comment:Preliminary automate d absolute neutrophil count. Value may change if manual differential is indicated. Neut Percent 70.0 % 02/14/2025 11:08 AM [facility] Comment:Neutrophils equals s egs plus bands Imm Gran% 4.1 % 02/14/2025 11:08 AM [facility] Comment:Automated count of m etamyelocytes, myelocytes and promyelocytes. IG > 3% may predict positive blood cultures with 98% specificity and 92% PPV. Jordana Peña, et al. (2003). [place] Journal of Clinical Pathology, 120:5, 793 791 Lymph Percent 15.1 % 02/14/2025 11:08 AM EDT [facility] [place] Percent 10.3 % 02/14/2025 11:08 [facility] Eos Percent 0.1 % 02/14/2025 11:08 AM EDT [facility] Baso Percent 0.4 % 02/14/2025 11:08 AM EDT [facility] Neut # 6.5(H) 1.6 - 6.1 x10(3)/mc L 02/14/2025 11:08 AM EDT [facility] Comment:Neutrophils equals s egs plus bands IMMGRAN# 0.4(H) 0.0 - 0.1 x10(3)/mc L 02/14/2025 11:08 AM EDT [facility] Comment:Automated count of m etamyelocytes, myelocytes and promyelocytes. An absolute IG <0.1 is reported as 0.0. Lymph # 1.4 1.2 - 3.9 x10(3)/mc L 02/14/2025 11:08 AM EDT [facility] [place] # 1.0(H) 0.3 - 0.9 x10(3)/mc L 02/14/2025 11:08 AM EDT [facility] Eos# 0.0 0.0 - 0.5 x10(3)/mc L 02/14/2025 11:08 AM EDT [facility] Baso # 0.0 0.0 - 0.1 x10(3)/ L 02/14/2025 11:08 AM EDT [facility] Blood VENOUS STRUCTURE / Unknown Port / Unknown 02/14/2025 11:01 AM EDT 02/14/2025 11:04 AM EDT us Ana Rosa Del Angel TANNERY GUMMER HEMATOLOGY ORDERABLES Ernestine l Result [facility] [address] [place] [address] documented in this encounter Visit Diagnoses Diagnosis Antineoplastic chemotherapy induced anemia- Primary documented in this encounter Historical Medications * This list may reflect changes made after this encounter. LICE TREATMENT 1 % Top Liquid APPLY TOPICALLY TO AREA FOR 1 DOSE 02/03/2025 acetaminophen (TYLENOL) 500 mg Oral Tablet Take 1,000 mg by mouth every 6 hours as needed. 02/07/2025 5 added in this encounter Care Teams Floor Layer Tile Relationship Specialty Start Date End Date Rodriguez Lindo [address] [place] [address] PCP - General Clinic/Center - [facility]) 12/03/16 Eden Noble, RN Registered Nurse Infusion Therapy 02/09/25 02/09/25 documented as of this encounter
--- OUTSIDE RECORDS SUMMARY | 2025-02-09 09:00 | XMS_ITS | Encounter Summary ---
Author Organization [place] [address] Care Team Providers Care Rounder Hand Name Role Phone Rodriguez Lindo Primary Care Provider +1- [phone] Eden Noble RN Unavailable Unavailable Reason for Visit * Oncology Medication Prior Authorization (Routine) - Closed Specialty Diagnoses / Procedures Referred By Raman t Referred To Contact Diagnoses Malignant neoplasm of overlapping sites of left breast in female, estrogen receptor positive (HCC) Procedures ONCOLOGY MEDICATION AUTHORIZATION Vnae Hollingsworth MD [address] [place] [address] Phone: tel: fax: Vane Hollingsworth MD [address] [place] [address] Phone: tel: fax: Referral ID Status Reason Start Date Expiration Date Visits Re quested Visits Authorized [id number] Closed 02/09/2025 02/09/2026 1 1 Encounter Details Date Type Department Care Team (Latest Contact Info) Description 02/09/2025 9:00 AM EDT - 02/09/2025 11:59 PM EDT Hospital Encounter [place] [address] Malignant neoplasm of overlapping sites [...] Noble RN - 02/09/2025 9:00 AM EDT [facility] Discharge Instructions Thank you for entrusting the [facility] with your care. We hope you are [...] infection DON'T WAIT, PLEASE CALL US FIRST [phone]. [FOR URGENT ISSUES PLEASE DO NOT LEAVE A MESSAGE, FOLLOW PROMPTS TO THE DOCTOR MILK PROCESSING WORKER] For Gynecology / Oncology call : [phone] Our hours of operation are Friday - Friday 8:00 AM - 4:30 PM. [facility] [address] [place] [address] [place] [address] [address] Results for orders placed or [...] Lymph # 2.3 1.2 - 3.9 x10(3)/mcL [place] # 2.3 (H) 0.3 - 0.9 x10(3)/mcL [...] PM EDT Appointment [place] [address] 04/15/2025 8:45 AM EDT Appointment [place] [address] 04/15/2025 9:15 AM EDT [facility]ment [facility] [place] [address] Vane Hollingsworth MD [address] [place] [address] documented as of this encounter Visit Diagnoses [...] 02/09/2025 documented in this encounter Care Teams Rounder Hand Relationship Specialty Start Date End Date Rodriguez Lindo [address] [place] [address] PCP - General Clinic/Center - [facility] ([facility]) 12/03/16 Eden Noble RN Registered Nurse Infusion Therapy 02/09/25 02/09/25 documented as of this encounter
--- OUTSIDE RECORDS SUMMARY | 2025-02-14 10:51 | XMS_ITS | Encounter Summary ---
Author Organization [place] [address] Care Team Providers Care Crm Marketing Specialist Name Role Phone Rodriguez Lindo Primary Care Provider +1- [phone] Encounter Details Date Type Department Care Team (Latest Contact Info) Description 02/14/2025 10:51 AM EDT - 02/14/2025 11:03 AM EDT Hospital Encounter [facility] [place], [place] [phone] Malignant neoplasm of overlapping sites of left [...] PM EDT Appointment [place] [address] 04/15/2025 8:45 AM EDT Appointment [facility] [address] 04/15/2025 9:15 AM EDT [facility]ment [facility] [place] [address] Vane Hollingsworth MD [address] [place] [address] documented as of this encounter Procedures Procedure [...] % 02/14/2025 11:15 AM EDT [facility], [facility] Retic # 135.5(H) 40.0 - 110.0 x10(3)/mcL 02/14/2025 11:15 AM EDT [facility], [facility] Imm. Retic Fraction % 29.1(H) 3.1 - 17.6 % 02/14/2025 11:15 AM EDT [facility] [place], [facility] Retic Hgb 35.1 28.0 - 38.0 pg 02/14/2025 11:15 AM EDT [facility] [place], [facility] Blood VENOUS STRUCTURE / Unknown Port / Unknown 02/14/2025 11:01 AM EDT 02/14/2025 11:04 AM EDT Narrative [facility] [place], [facility] - 02/14/2025 11:15 AM [...] the youngest reticulocytes having the highest content. (1)Marc Zaidi., et al. 2017. Int J Hematol 106:116-125. (2)Law J., et al. 2017. Nutrients 9:450. (3)Tayler Echavarria, et al. 2014. Am J Clin Pathol 142:506-512. (4)Opal Rivas, et al. 2010. Blood 116:5018-4959. Ana Rosa Del Angel APRN HEMATOLOGY ORDERABLES Ernestine l Result Performing Organization Address [facility] Co de Phone Number [employer] [address] , [place] [address] * FERRITIN (02/14/2025 11:01 AM EDT) Ferritin 144 30 - 150 ng/mL 02/14/2025 12:02 PM EDT [facility] Comment:The lower threshold of 30 is not [...] AM EDT 02/14/2025 11:04 AM EDT Narrative [facility] [employer] [facility] - 02/14/2025 12:02 PM EDT Ingestion of manda doses of biotin (>5 mg/day) taken within 8 hours of drawing blood sample can interfere with this immunoassay test. Ana Rosa Del Angel SENIOR QUALITY ASSURANCE ENGINEER CHEMISTRY ORDERABLES Final Result Performing Organization Address [facility] Co de Phone Number [facility] [address] [facility] , [place] [address] * IRON+TIBC (02/14/2025 11:01 AM EDT) Iron 63 30 - 160 mcg/dL 02/14/2025 12:02 PM EDT [facility] [email or web address] Transferrin 205 200 - 360 mg/dL 02/14/2025 12:02 PM EDT [facility] LAB [facility], [facility] Transferrin Saturation 22 20 - 50 % 02/14/2025 12:02 PM EDT [facility] LAB [facility], [facility] TIBC 287 250 - 400 mcg/dL 02/14/2025 12:02 PM EDT [facility], [facility] Blood VENOUS STRUCTURE / Unknown Port / Unknown 02/14/2025 11:01 AM EDT 02/14/2025 11:04 AM EDT us Ana Rosa Del Angel SENIOR QUALITY ASSURANCE ENGINEER CHEMISTRY ORDERABLES Final Result [facility], [facility] [address] [facility] [facility] , [address] [place] [id number] * (ABNORMAL) CBC WITH DIFF (02/14/2025 11:01 AM EDT) WBC 9.3 3.7 - 10.3 x10(3)/mc L 02/14/2025 11:08 AM EDT [facility] RBC 3.50(L) 3.90 - 5.20 x10(6)/mc L 02/14/2025 11:08 AM EDT [facility] Hgb 10.7(L) 11.2 - 15.7 g/dL 02/14/2025 11:08 AM EDT [facility] Hct 34.3 34.0 - 45.0 % 02/14/2025 11:08 AM EDT [facility] MCV 98.0 80.0 - 100.0 fL 02/14/2025 11:08 AM EDT [facility] MCH 30.6 26.0 - 34.0 pg 02/14/2025 11:08 AM EDT [facility] MCHC 31.2 30.7 - 35.5 g/dL 02/14/2025 11:08 AM EDT [facility] RDW 14.9 <=14.9 % 02/14/2025 11:08 AM EDT [facility] Platelet 194 155 - 369 x10(3)/mc L 02/14/2025 11:08 AM EDT [facility] MPV 9.2 8.8 - 12.5 fL 02/14/2025 11:08 AM EDT [facility] Neut # Prelim 6.5(H) 1.6 - 6.1 x10(3)/mc L 02/14/2025 11:08 AM T [facility] Comment:Preliminary automate d absolute neutrophil count. Value may change if manual differential is indicated. Neut Percent 70.0 % 02/14/2025 11:08 AM EDT [facility] Comment:Neutrophils equals s egs plus bands Imm Gran% 4.1 % 02/14/2025 11:08 AM EDT [facility] Comment:Automated count of m etamyelocytes, myelocytes and promyelocytes. IG > 3% may predict positive blood cultures with 98% specificity and 92% PPV. Jordana Peña, et al. (2003). [place] Journal of Clinical Pathology, 120:5, 226 799 Lymph Percent 15.1 % 02/14/2025 11:08 AM EDT [facility] [place] Percent 10.3 % 02/14/2025 11:08 AM EDT [facility] Eos Percent 0.1 % 02/14/2025 11:08 AM EDT [facility] Baso Percent 0.4 % 02/14/2025 11:08 AM [facility] Neut # 6.5(H) 1.6 - 6.1 x10(3)/mc L 02/14/2025 11:08 AM T [facility] Comment:Neutrophils equals s egs plus bands IMMGRAN# 0.4(H) 0.0 - 0.1 x10(3)/mc L 02/14/2025 11:08 AM EDT [facility] Comment:Automated count of m etamyelocytes, myelocytes and promyelocytes. An absolute IG <0.1 is reported as 0.0. Lymph # 1.4 1.2 - 3.9 x10(3)/mc L 02/14/2025 11:08 AM EDT [facility] [place] # 1.0(H) 0.3 - 0.9 x10(3)/mc L 02/14/2025 11:08 AM EDT [facility] Eos# 0.0 0.0 - 0.5 x10(3)/mc L 02/14/2025 11:08 AM EDT [facility] Baso # 0.0 0.0 - 0.1 x10(3)/mc L 02/14/2025 11:08 AM EDT [facility] Blood VENOUS STRUCTURE / Unknown Port / Unknown 02/14/2025 11:01 AM EDT 02/14/2025 11:04 AM EDT us Ana Rosa Del Angel SENIOR QUALITY ASSURANCE ENGINEER HEMATOLOGY ORDERABLES Ernestine pinedo Result [facility] [address] [place] [id number] documented in this encounter Visit Diagnoses Diagnosis [...] mL documented in this encounter Care Teams Crm Marketing Specialist Relationship Specialty Start Date End Date [facility] [address] [place] [address] PCP - General Clinic/Center - [facility] ([facility]) 12/03/16 documented as of this encounter
--- OUTSIDE RECORDS SUMMARY | 2025-02-14 11:04 | XMS_ITS | Encounter Summary ---
Author Organization [place] [address] Care Team Providers Care Magazine Journalist Name Role Phone Rodriguez Lindo Primary Care Provider +1- [phone] Reason for Visit * Reason Comments Cancer Here to discuss lab results. Encounter Details Date Type Department Care Team (Latest Contact Info) Description 02/14/2025 11:04 AM EDT - 02/14/2025 11:59 PM EDT Hospital Encounter [facility] [place], [place] [phone] Malignant neoplasm of overlapping sites of left [...] PM EDT Appointment [facility] [place], [place] [phone] 04/15/2025 8:45 AM EDT Appointment [place] [address] 04/15/2025 9:15 AM EDT Appointment [facility] [place] [address] Vane Hollingsworth MD [address] [place] [phone] documented as of this encounter Visit Diagnoses Diagnosis Malignant neoplasm of overlapping sites of left breast in female, estrogen receptor positive (HCC)- Primary documented in this encounter Care Teams Magazine Journalist Relationship Specialty Start Date End Date Rodriguez Lindo [address] [place] [address] PCP - General Clinic/Center - [facility] 12/03/16 documented as of this encounter
--- OUTSIDE RECORDS SUMMARY | 2025-02-21 08:13 | XMS_ITS | Encounter Summary ---
[place] [address] Care Team Providers Care Bakery Machine Mechanic Supervisor Name Role Phone Rodriguez Lindo Primary Care Provider +1- [phone] Vane Hollingsworth MD Unavailable +1- [phone] Terri Tay RN Unavailable Unavailable Encounter Details Date Type Department Care Team (Latest Contact Info) Description 02/21/2025 8:13 AM EDT - 02/21/2025 8:26 AM EDT Hospital En[place] [address] Malignant neoplasm of overlapping sites [...] PM EDT Appointment [place] [place] [address] 04/15/2025 8:45 AM EDT Appointment [place] [address] 04/15/2025 9:15 AM EDT [facility]ment [facility] [place] [address] Vane Hollingsworth MD [address] [place] [id number] documented as of this encounter Procedures Procedure [...] - 145 mmol/L 02/21/2025 8:46 AM EDT [facility] Potassium 3.9 3.5 - 5.0 mmol/L 02/21/2025 8:46 AM EDT [facility] Chloride 111(H) 98 - 107 mmol/L 02/21/2025 8:46 AM EDT [facility] Total CO2 23 22 - 29 mmol/L 02/21/2025 8:46 AM EDT [facility] Anion Gap 9 7 - 16 mmol/L 02/21/2025 8:46 AM EDT [facility] Calcium 8.8 8.6 - 10.4 mg/dL 02/21/2025 8:46 AM EDT [facility] Glucose Lvl 95 70 - 99 mg/dL 02/21/2025 8:46 AM EDT [facility] BUN 9 6 - 20 mg/dL 02/21/2025 8:46 AM EDT [facility] Creatinine 0.68 0.51 - 1.30 mg/dL 02/21/2025 8:46 AM EDT [facility] Albumin 3.6 3.5 - 5.2 gm/dL 02/21/2025 8:46 AM EDT [facility] Total Protein 5.9(L) 6.4 - 8.3 gm/dL 02/21/2025 8:46 AM EDT [facility] Bili Total <0.2(L) 0.2 - 1.3 mg/dL 02/21/2025 8:46 AM EDT [facility] ALT 11 <=41 U/L 02/21/2025 8:46 AM EDT [facility] AST 18 <=40 U/L 02/21/2025 8:46 AM EDT [facility] Alk Phos 81 36 - 123 U/L 02/21/2025 8:46 AM EDT [facility] eGFR (CKD-EPIcr 2020) 112 >=60 mL/min/1.7 3 m2 02/21/2025 8:46 AM EDT [facility] Comment:Estimated GFR was ca lculated using the CKD-EPIcr (2020) equation refit without race. The equation is recommended by the [employer] - [place] [employer]ph[employer] Task Force. Blood VENOUS STRUCTURE / Unknown Port / Unknown 02/21/2025 8:24 AM EDT 02/21/2025 8:26 AM EDT Isaias Miller MD CHEMISTRY ORDERABLES Final Result [place] [id number] * (ABNORMAL) CBC WITH DIFF (02/21/2025 8:24 AM EDT) WBC 5.6 3.7 - 10.3 x10(3)/mc L 02/21/2025 8:32 AM EDT [facility] RBC 3.19(L) 3.90 - 5.20 x10(6)/mc L 02/21/2025 8:32 AM EDT [facility] Hgb 10.1(L) 11.2 - 15.7 g/dL 02/21/2025 8:32 AM EDT [facility] Hct 31.5(L) 34.0 - 45.0 % 02/21/2025 8:32 AM EDT [facility] MCV 98.7 80.0 - 100.0 fL 02/21/2025 8:32 AM EDT [facility] MCH 31.7 26.0 - 34.0 pg 02/21/2025 8:32 AM EDT [facility] MCHC 32.1 30.7 - 35.5 g/dL 02/21/2025 8:32 AM EDT [facility] RDW 15.9(H) <=14.9 % 02/21/2025 8:32 AM EDT [facility] Platelet 305 155 - 369 x10(3)/mc L 02/21/2025 8:32 AM EDT [facility] MPV 9.0 8.8 - 12.5 fL 02/21/2025 8:32 AM EDT [facility] Neut # Prelim 3.7 1.6 - 6.1 x10(3)/mc L 02/21/2025 8:32 AM EDT [facility] Comment:Preliminary automate d absolute neutrophil count. Value may change if manual differential is indicated. Neut Percent 65.7 % 02/21/2025 8:32 AM EDT [facility] Comment:Neutrophils equals s egs plus bands Imm Gran% 0.2 % 02/21/2025 8:32 AM T [facility] Comment:Automated count of m etamyelocytes, myelocytes and promyelocytes. Lymph Percent 14.9 % 02/21/2025 8:32 AM EDT [facility] [place] Percent 18.3 % 02/21/2025 8:32 AM EDT [facility] Eos Percent 0.0 % 02/21/2025 8:32 AM EDT [facility] Baso Percent 0.9 % 02/21/2025 8:32 AM EDT [facility] Neut # 3.7 1.6 - 6.1 x10(3)/mc L 02/21/2025 8:32 AM T [facility] Comment:Neutrophils equals s egs plus bands IMMGRAN# 0.0 0.0 - 0.1 x10(3)/mc L 02/21/2025 8:32 AM EDT [facility] Comment:Automated count of m etamyelocytes, myelocytes and promyelocytes. An absolute IG <0.1 is reported as 0.0. Lymph # 0.8(L) 1.2 - 3.9 x10(3)/mc L 02/21/2025 8:32 AM EDT [facility] [place] # 1.0(H) 0.3 - 0.9 x10(3)/mc L 02/21/2025 8:32 AM EDT [facility] Eos# 0.0 0.0 - 0.5 x10(3)/mc L 02/21/2025 8:32 AM EDT [facility] Baso # 0.1 0.0 - 0.1 x10(3)/mc L 02/21/2025 8:32 AM EDT [facility] Blood VENOUS STRUCTURE / Unknown Port / Unknown 02/21/2025 8:24 AM EDT 02/21/2025 8:26 AM EDT Isaias Miller MD HEMATOLOGY ORDERABLES Final Result [facility] [address] [place], [place] [id number] documented in this encounter Visit Diagnoses Diagnosis [...] 02/21/2025 documented in this encounter Care Teams Bakery Machine Mechanic Supervisor Relationship Specialty Start Date End Date [facility] [address] [place] [phone] PCP - General Clinic/Center - [facility] ([facility]) 12/03/16 Vane Hollingsworth MD [address] [place] [address] Internal Medicine-Hematology and Oncology 02/21/25 Terri Tay, RN Registered Nurse Infusion Therapy 02/21/25 02/21/25 documented as of this encounter
--- OUTSIDE RECORDS SUMMARY | 2025-02-21 08:27 | XMS_ITS | Encounter Summary ---
Author [place] [address] Care Team Providers Care Legal Assistant Name Role Phone Rodriguez Lindo Primary Care Provider +1- [phone] Vane Hollingsworth MD Unavailable +1- [phone] Terri Tay RN Unavailable Unavailable Reason for Visit * Reason Comments Follow-up Breast Cancer Chemotherapy Encounter Details Date Type Department Care Team (Latest Contact Info) Description 02/21/2025 8:27 AM EDT - 02/21/2025 9:19 AM EDT Hospital Encounter [facility] [place], [place] [id number] Vane Hollingsworth MD [address] [place] [address] [id number] Malignant neoplasm of overlapping sites of left [...] were not included. Patient: Anne Kearney CSN: [id number] Date of : 1985 Age: 40 y.o. Date of Service: 02/21/2025 HEMATOLOGY/ONCOLOGY FU PATIENT OFFICE NOTE CURRENT TREATMENT: 12/15/2024 - TC X 4 (first cycle given in [place]) Outside oncology history: Diagnosis Invasive lobular carcinoma, 2 o'clock left breast, Jul 2024 Grade 2 ER 76%, VA 24%, HER-2 0/negative, Ki67 13% Stage IIB; pT2, pN1a Oncotype DX recurrence score: 17 Ambry BRCA 1/2 CancerNext genetic test: Positive pathogenic mutation detected: BRCA2 History Hepatitis C-treated Treatment Summary 07/29/24 Bilateral mastectomies with positive (1/) left axillary SLNB by Dr Giovanna Tolentino/[facility] General Surgery 08/16/24 Initiated endocrine hormone therapy with Tamoxifen 20mg daily by Dr Oliverio Prescott/[facility] Medical Oncology 10/01/24 Prophylactic total hysterectomy with bilateral salpino-oophorectomy by Dr Ministerio Gamino/[facility] X RAY TECH 10/11/24 - 12/01/24 Completed adjuvant radiation therapy with 5040cGy over 28 fractions to left breastby Dr Angelito Pierson/[facility] Radiation Oncology 10/18/24 Discontinue Tamoxifen. Initiate Letrozole 2.5mg daily by Dr Oliverio Prescott/[facility] Medical Oncology. 12/15/24 Taxotere, Cyclophosphamide + GCSF every for 3 weeks x4 cycles Cancer History 06/14/24 Bilateral screening mammogram (P): No suspicious mammographic findings in the RIGHT breast. LEFT breast 4 mm focal asymmetry in the middle to posterior third, outer central breast, 3 o'clock position, 5 cm from the nipple on cc view. 06/14/24 Transvaginal US ([facility]): Physiologic appearance of the uterus and RIGHT [...] is at least 1.4 cm. ER 76%, VA 24%, HER-2 0/negative, Ki67 13% 06/29/24 MRI [...] (1/6) left axillary SLNB by Dr Giovanna Tolentino/[facility] General Surgery 07/29/24 Left breast, total [...] with Tamoxifen 20mg daily by Dr Oliverio Prescott/[facility] Medical Oncology 08/16/24 [facility] labs: CEA 3.75, CA 27-29 14; CBC-WBC 14.6; ANC 8.7; ALC 4.2; Hgb 12.1; MCV 88.9; platelets 361,000; CMP WNL; ferritin 19, iron 34, fe sat 7% 08/18/24 CT chest ([facility]): No evidence of metastatic disease in the chest. Postoperative change of bilateral mastectomy. 08/18/24 CT abd/pelvis ([facility]): No evidence of metastatic disease in the abdomen or pelvis. 08/18/24 Bone scan ([facility]): No evidence of osteoblastic metastatic disease by bone scan. 08/30/24 Oncotype DX recurrence score: 17 09/16/[address] Angelito Pierson/[facility] Radiation Oncology who recommended adjuvant radiation therapy with 5040 cGy over 28 fractions to left breast/left chest wall [facility]. 09/20/[address] Oliverio rPescott/[facility] Medical Oncology who recommended referral to X RAY TECH for prophylactic hysterectomy due to positive BRCA2 gene, to proceed with [facility] consult, to proceed with radiation therapy after [facility] consult and adjuvant Taxotere 75mg/m2, Cyclophosphamide 600mg/m2 every 3 weeks x4 cycles, but to hold [facility]. 09/23/[address] Lit Sheets[facility] who recommended adjuvantTaxotere Cyclophosphamide x4 cycles followed by adjuvant Aromatase inhibitor + Ribociclib + Zometa. 09/27/24 Bone density (P): Normal 10/01/24 Prophylactic total hysterectomy with bilateral salpino-[facility]oph[facility] 10/01/24 Uterus, cervix, bilateral tubes and ovaries, hysterectomy and bilateral salpingo-oophorectomy: Chronic cervicitis. Proliferative endometrium. Endometrial polyp. Adenomyosis. Completely transected right and left fallopian tubes and unremarkable fimbrial epithelial surface. Mesonephric cyst associated both left and right fallopian tubes. Corpora albicantia of right ovary.Corpora albicantia and 1 corpus hemorrhagicum of left ovary. Uterine weight of 141.7 g. 10/03/24 CT abd/pelvis ([facility]): Moderate pneumoperitoneum with scattered extraperitoneal air [...] fractions to left breast by Dr Angelito Pierson/[facility] Radiation Oncology 10/18/24 Follow-up evaluation with Dr Oliverio Prescott/[facility] Medical Oncology who recommended to discontinue Tamoxifen, initiate Letrozole 2.5mg daily and to anticipate adjuvant Taxotere 75mg/m2, Cyclophosphamide 600mg/m2 every 3 weeks x4 cycles 10/18/24 Discontinue Tamoxifen. Initiate Letrozole 2.5mg daily by Dr Oliverio Prescott/[facility] Medical Oncology 11/03/24 CT chest ([facility]): No acute abnormality in the chest. 11/03/24 US venous doppler upper right extremity ([facility]): There is no evidence of deep venous thrombosis of the right upper extremity. There is partial nonocclusive superficial thrombus in the cephalic vein. 12/01/24 Completed adjuvant radiation therapy with 5040cGy over 28 fractions to left breast by Dr Angelito Pierson/[facility] Radiation Oncology 12/15/24 First dose of TC HISTORY OF PRESENT ILLNESS: CC: Chief Complaint Patient presents with Follow-up Breast Cancer Chemotherapy Patient is a 40 y.o. female who presents for breast cancer follow up and treatment. [place] dose of TC in [place] and moved locally and here to [...] and [place] No nausea, some abdominal discomfort +BM last night normal To see new PCP on 01/30 in [place] - Dr. Graza - this did Interval hx: Heightended pain with tx, drowsiness, poor appetite. Has scheduled pain visit on 03/[address] Neves in [place]? HISTORY: Medical, Surgical, Social, Family histories were [...] o'clock left breast, Grade 2, ER 76%, VA 24%, HER-2 0/negative, Ki67 13%, pT2, pN1a [...] later in the week (recall went to ED on 02/09.) Genetic assessment 06/29/24 Anni [...] visit on 03/[address] Neves in [place]? Dispo: Return for schedule next cycle and fluids lorena end of this week. Thank you for the opportunity to assist in the care of this patient, please feel free to contact meif I can be of any assistance. Vane Hollingsworth MD Hematology and Medical Oncology [facility] documented in this encounter Miscellaneous Notes * Addendum Note - Cecy Rutledge RN - 02/21/2025 9:00 AM EDTEncounter addended by: Cecy Rutledge RN on: 02/24/2025 3:04 PM Actions taken: Order list changed, Treatment plan modified documented in this encounter Plan of Treatment Upcoming Encounters Date Type Department Care Team (Late st Contact Info) Description 03/17/2025 1:00 PM EDT [facility]ointment [place] [address] 04/15/2025 8:45 AM EDT Appointment [facility] [place], [place] [phone] 04/15/2025 9:15 AM EDT Appointment [facility] [place], [place] [id number] Vane Hollingsworth MD [address] [place], [place] [id number] documented as of this encounter Visit Diagnoses Diagnosis Malignant neoplasm of overlapping sites of left breast in female, estrogen receptor positive (HCC)- Primary documented in this encounter Care Teams Legal Assistant Relationship Specialty Start Date End Date [facility] [address] [place] [id number] PCP - General Clinic/Center - [facility] ([facility]) 12/03/16 Vane Hollingsworth MD [address] [place] [phone] Internal Medicine-Hematology and Oncology 02/21/25 Terri Tay, RN Registered Nurse Infusion Therapy 02/21/25 02/21/25 documented as of this encounter
--- OUTSIDE RECORDS SUMMARY | 2025-02-21 09:20 | XMS_ITS | Encounter Summary ---
Author Organization [place] [address] Care Team Providers Care Overseer Kosher Kitchen Name Role Phone Rodriguez Lindo Primary Care Provider +1- [phone] Vane Hollingsworth MD Unavailable +1- [phone] Terri Tay RN Unavailable Unavailable Reason for Visit * Oncology Medication Prior Authorization (Routine) - Authorized Specialty Diagnoses / Procedures Referred By Contac t Referred To Contact Diagnoses Malignant neoplasm of overlapping sites of left breast in female, estrogen receptor positive (HCC) Procedures ONCOLOGY MEDICATION AUTHORIZATION Vane Hollingsworth MD [address] [place] [address] Phone: tel: fax: Vane Hollingsworth MD [address] [place] [address] Phone: tel: fax: Referral ID Status Reason Start Date Expiration Date V isits Requested Visits Authorized [id number] Authorized 01/21/2025 01/21/2026 1 6 Encounter Details Date Type Department Care Team (Latest Contact Info) Description 02/21/2025 9:20 AM EDT - 02/21/2025 11:59 PM EDT Hospital Encounter [place] [address] Malignant neoplasm of overlapping sites [...] Romero RN - 02/21/2025 9:30 AM EDT [facility] Discharge Instructions Thank you for entrusting the [facility] with your care. We hope [...] infection DON'T WAIT, PLEASE CALL US FIRST [phone]. [FOR URGENT ISSUES PLEASE DO NOT LEAVE A MESSAGE, FOLLOW PROMPTS TO THE DOCTOR FORENSIC ACCOUNTANT] For Gynecology / Oncology call : [phone] Our hours of operation are Friday - Friday 8:00 AM - 4:30 PM. [facility] Scott Johnson [address] [address] [place] [address] [place], [place] [phone] [place] [address] [place] [address] Results for orders placed or performed [...] Gran% 0.2 % Lymph Percent 14.9 % [place] Percent 18.3 % Eos Percent 0.0 % Baso Percent 0.9 % Neut # 3.7 1.6 - 6.1 x10(3)/mcL IMMGRAN# 0.0 0.0 - 0.1 x10(3)/mcL Lymph # 0.8 (L) 1.2 - 3.9 x10(3)/mcL [place] # 1.0 (H) 0.3 - 0.9 x10(3)/mcL [...] PM EDT Appointment [place] [address] 04/15/2025 8:45 AM EDT Appointment [place] [address] 04/15/2025 9:15 AM EDT [facility]ointment [facility] [place] [address] Vane Hollingsworth MD [address] [place] [address] documented as of this encounter Visit Diagnoses [...] at 1000, Until Fri02/22/25 at 0411, For chief airline radio operator during chemotherapy infusion., Dx: 1. Malignant [...] 0.25 mg, Intravenous, ONCE, 1 dose, On 02/21/25 at 1000, Dx: 1. Malignant neoplasm of [...] 2024 documented in this encounter Care Teams Overseer Kosher Kitchen Relationship Specialty Start Date End Date [facility] [address] [place] [address] PCP - General Clinic/Center - [facility] ([facility]) 12/03/16 Vane Hollingsworth MD [address] [place] [address] Internal Medicine-Hematology and Oncology 02/21/25 Terri Tay RN Registered Nurse Infusion Therapy 02/21/25 02/21/25 documented as of this encounter
--- OUTSIDE RECORDS SUMMARY | 2025-02-22 13:14 | XMS_ITS | Encounter Summary ---
Author Organization [place] [address] Care Team Providers Care Patient Attendant Name Role Phone Rodriguez Lindo Primary Care Provider +1- [phone] Vane Hollingsworth MD Unavailable +1- [phone] Moriah Woods RN Unavailable Unavailabl e Reason for Visit * Oncology Medication Prior Authorization (Routine) - Authorized Specialty Diagnoses / Procedures Referred By Contac t Referred To Contact Diagnoses Malignant neoplasm of overlapping sites of left breast in female, estrogen receptor positive (HCC) Procedures ONCOLOGY MEDICATION AUTHORIZATION Vane Hollingsworth MD [address] [place] [address] Phone: tel: fax: Vane Hollingsworth MD [address] [place] [address] Phone: tel: fax: Referral ID Status Reason Start Date Expiration Date V isits Requested Visits Authorized [id number] Authorized 01/21/2025 01/21/2026 1 6 Encounter Details Date Type Department Care Team (Latest Contact Info) Description 02/22/2025 1:14 PM EDT - 02/22/2025 11:59 PM EDT Hospital En[place] [address] Malignant neoplasm of overlapping sites [...] Sign Reading Time Taken Comments Blood Pressure 119/74 02/22/2025 1:18 PM EDT Pulse 84 02/22/2025 1:18 PM EDT Temperature 36.7 C (98.1 F) 02/22/2025 1:18 PM EDT Respiratory Rate 16 02/22/2025 1:18 PM EDT Oxygen Saturation 99% 02/22/2025 1:18 PM EDT Inhaled Oxygen Concentration - - [...] encounter Miscellaneous Notes * Patient Instructions - Moriah Woods RN - 02/22/2025 1:30 PM EDT [facility] Discharge Instructions Thank you for entrusting the [facility] with your care. We hope you are pleased with your outpatient care and services. Because we are most concerned with your health, we suggest you carefully read the following discharge instructions: Your Discharge Instructions: MEDICATION INSTRUCTIONS: Treatment received today: Orders Placed This Encounter pegfilgrastim-apgf (NYVEPRIA) injection 6 mg Reviewed medications [...] infection DON'T WAIT, PLEASE CALL US FIRST [phone]. [FOR URGENT ISSUES PLEASE DO NOT LEAVE A MESSAGE, FOLLOW PROMPTS TO THE DOCTOR SHIP CLEANER] For Gynecology / Oncology call : [phone] Our hours of operation are Friday - Friday 8:00 AM - 4:30 PM. [facility] [address] [place] [address] 796 [phone] [place] [address] [place] [address] No results found for any visits on 02/22/25. documented in this encounter Plan of Treatment Upcoming Encounters Date Type Department Care Team (Late st Contact Info) Description 03/17/2025 1:00 PM EDT Appointment [facility] [place], [place] [id number] 04/15/2025 8:45 AM EDT Appointment [facility] [place], [place] [id number] 04/15/2025 9:15 AM EDT [facility]ment [facility] [place] [address] Vane Hollingsworth MD [address] [place] [address] [id number] documented as of this encounter Visit Diagnoses Diagnosis Malignant neoplasm of overlapping sites of left breast in female, estrogen receptor positive (HCC)- Primary documented in this encounter Administered Medications Inactive Administered Medications - up to 1 most recent administrations Medication Order MAR Action Action Date Dose Rate Site pegfilgrastim-apgf (NYVEPRIA) injection 6 mg 6 mg, Subcutaneous, ONCE, 1 dose, On Fri02/22/25 at 1330, Please Select Indication: Dose-Dense regimen, Dx: 1. Malignant neoplasm of overlapping sites of left breast in female, estrogen receptor positive (HCC)Indications:Malignant neoplasm of overlapping sites of left breast in female, estrogen receptor positive (HCC) Given 02/22/2025 1:30 PM EDT 6 mg Left Arm documented in this encounter Orders Medications Ordered That Jose Angel ht Not Have Been Administered Count Last Ordered Date First Ordered Date pegfilgrastim-apgf (NYVEPRIA ) injection 6 mg 1 02/22/2025 documented in this encounter Care Teams Patient Attendant Relationship Specialty Start Date End Date Rodriguez Lindo [address] [place] [id number] PCP - General Clinic/Center - [facility] ([facility]) 12/03/16 Vane Hollingsworth MD [address] [place] [address] Internal Medicine-Hematology and Oncology 02/21/25 Moriah Woods RN Registered Nurse Infusion Therapy 02/22/25 02/22/25 documented as of this encounter
--- OUTSIDE RECORDS SUMMARY | 2025-02-27 22:52 | XMS_ITS | Encounter Summary ---
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 Pt denies fever, chills, N/V/D, abdominal pain, urinary symptoms, headache, chest pain, SOA. History provided by: Patient sign language interpreter used: No Patient History Past Medical History[1] [...] The PDMP from February 28 2025 from [facility] were reviewed and found to be [...] medications to the pharmacy Disposition Discharge AVS (Albanian Snapshot) - Printed 02/28/2025 ED Prescriptions Medication [...] worsening. 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 Chemo last Friday-performed in [place], [place] (states she has a couple of [...] LAB HEMATOLOGY METHOD 02/27/2025 11:58 PM EDT [facility] Platelet Estimate Platelet smear estimate consistent with automated count LAB HEMATOLOGY METHOD 02/27/2025 11:58 PM EDT [facility] Blood Venous blood specimen / Unknown Venipuncture / Unknown 02/27/2025 11:23 PM EDT 02/27/2025 11:25 PM EDT us García Matias MD LAB BLOOD ORDERABLES Final Result [facility] [address] [place] [address] * (ABNORMAL) Manual Differential (02/27/2025 11:23 PM EDT) Blasts % 0 % LAB HEMATOLOGY METHOD 02/27/2025 11:58 PM EDT [facility] Promyelocytes % 0 % LAB HEMATOLOGY [...] LAB HEMATOLOGY METHOD 02/27/2025 11:58 PM EDT [facility] Promyelocytes Absolute 0.00 10*3/uL LAB HEMATOLOGY [...] BLOOD ORDERABLES Final Result Performing Organization Address City/[facility]/ZIP Co de Phone Number [facility] [address] [place] [address] * hCG qualitative (02/27/2025 11:23 PM EDT) Test Negative Negative 02/27/2025 11:47 PM EDT [facility] Blood Venous blood specimen / Unknown Venipuncture / Unknown 02/27/2025 11:23 PM EDT 02/27/2025 11:25 PM EDT Narrative [facility] - 02/27/2025 11:47 PM EDT Reference Range: Males and non- females: Negative. García Matias MD LAB BLOOD ORDERABLES Final Result Performing Organization Address City/[facility]/ZIP Co de Phone Number [facility] [address] [place] [address] * Magnesium (02/27/2025 11:23 PM EDT) Magnesium, Plasma 2.2 1.9 - 2.4 mg/dL 02/27/2025 11:47 PM EDT [facility] Blood Venous blood specimen / Unknown Venipuncture / Unknown 02/27/2025 11:23 PM EDT 02/27/2025 11:25 PM EDT García Matias MD LAB BLOOD ORDERABLES Final Result Performing Organization Address City/[facility]/ZIP Co de Phone Number [facility] [address] [place] [address] * (ABNORMAL) CMP (02/27/2025 11:23 PM EDT) Glucose, Plasma 110(H) 74 - 99 mg/dL 02/27/2025 11:47 PM EDT [facility] BUN, Plasma 11 7 - 21 mg/dL 02/27/2025 11:47 PM EDT [facility] Creatinine, Plasma 0.80 0.60 - 1.10 mg/dL 02/27/2025 11:47 PM EDT [facility] BUN/Creatinine Ratio 14 02/27/2025 11:47 PM EDT [facility] Sodium, Plasma 142 136 - 145 mmol/L 02/27/2025 11:47 PM EDT [facility] Potassium, Plasma 4.5 3.6 - 4.9 mmol/L 02/27/2025 11:47 PM EDT [facility] Chloride, Plasma 105 97 - 107 mmol/L 02/27/2025 11:47 PM EDT [facility] CO2, Plasma 26 22 - 29 mmol/L 02/27/2025 11:47 PM EDT [facility] Anion Gap 11 6 - 16 mmol/L 02/27/2025 11:47 PM EDT [facility] Total Calcium, Plasma 9.3 8.9 - 10.2 mg/dL 02/27/2025 11:47 PM EDT [facility] Total Protein 6.1(L) 6.3 - 7.9 g/dL 02/27/2025 11:47 PM EDT [facility] Albumin, Plasma 3.9 3.5 - 5.2 g/dL 02/27/2025 11:47 PM EDT [facility] AST, Plasma 29 10 - 35 U/L 02/27/2025 11:47 PM EDT [facility] ALT, Plasma 27 10 - 35 U/L 02/27/2025 11:47 PM EDT [facility] Alkaline Phosphatase, Plasma 132(H) 35 - 104 U/L 02/27/2025 11:47 PM EDT [facility] Total Bilirubin, Plasma <0.2(L) 0.2 - 1.1 mg/dL 02/27/2025 11:47 PM EDT [facility] eGFRcr 95.1 mL/min/1.7 3m*2 02/27/2025 11:47 PM EDT [facility] Comment:Reported eGFRcr in m L/min/1.73m2 is based the CKD-EPI 2020 equation that does not use a race coefficient. Blood Venous blood specimen / Unknown Venipuncture / Unknown 02/27/2025 11:23 PM EDT 02/27/2025 11:25 PM EDT us García Matias MD LAB BLOOD ORDERABLES Final Result [facility] [address] [place] [address] * (ABNORMAL) CBC w/diff (02/27/2025 11:23 PM EDT) WBC Count 7.30 3.70 - 10.30 10*3/uL LAB HEMATOLOGY METHOD 02/27/2025 11:58 PM EDT [facility] RBC Count 3.21(L) 3.90 - 5.20 10*6/uL LAB HEMATOLOGY METHOD 02/27/2025 11:58 PM EDT [facility] HGB 9.9(L) 11.2 - 15.7 g/dL LAB HEMATOLOGY METHOD 02/27/2025 11:58 PM EDT [facility] HCT 29.9(L) 34.0 - 45.0 % LAB HEMATOLOGY METHOD 02/27/2025 11:58 PM EDT [facility] Platelet Count 230 155 - 369 10*3/uL LAB HEMATOLOGY METHOD 02/27/2025 11:58 PM EDT [facility] MCV 93 79 - 98 fL LAB HEMATOLOGY METHOD 02/27/2025 11:58 PM EDT [facility] MCH 30.8 26.0 - 32.0 pg LAB HEMATOLOGY METHOD 02/27/2025 11:58 PM EDT [facility] MCHC 33.1 30.7 - 35.5 g/dL LAB HEMATOLOGY METHOD 02/27/2025 11:58 PM EDT [facility] RDW 15.3(H) 11.5 - 14.5 % LAB HEMATOLOGY METHOD 02/27/2025 11:58 PM EDT [facility] MPV 10.4 8.8 - 12.5 fL LAB HEMATOLOGY METHOD 02/27/2025 11:58 PM EDT [facility] nRBC 1.9(H) <=0.0 per 100 WBCs LAB HEMATOLOGY METHOD 02/27/2025 11:58 PM EDT [facility] Differential Type Manual LAB HEMATOLOGY METHOD 02/27/2025 11:58 PM EDT [facility] Blood Venous blood specimen / Unknown Venipuncture / Unknown 02/27/2025 11:23 PM EDT 02/27/2025 11:25 PM EDT Narrative [facility] - 02/27/2025 11:58 PM EDT Therapeutic decision making should be based on absolute values, rather than percentages. us García Matias MD LAB BLOOD ORDERABLES Final Result [facility] [address] [place] [id number] documented in this encounter Visit Diagnoses Diagnosis [...] Pagan) documented in this encounter Care Teams Scraper Tender Relationship Specialty Start Date End Date Pcp, No [address] [place] [address] PCP - General Family Medicine 02/07/25 documented as of this encounter
--- OUTSIDE RECORDS SUMMARY | 2025-03-16 08:12 | XMS_ITS | Encounter Summary ---
Author [place] [address] Care Team Providers Care Braille Transcriber Name Role Phone Rodriguez Lindo Primary Care Provider +1- [phone] Vane Hollingsworth MD Unavailable +1- [phone] Giovanna Joseph RN Unavailable Unavailable Encounter Details Date Type Department Care Team (Latest Contact Info) Description 03/16/2025 8:12 AM EDT Hospital Encounter [place] [address] Malignant neoplasm of overlapping sites of left breast in female, estrogen receptor positive (HCC) (Primary Dx) Social History Tobacco Use Types Packs/Day Years [...] on file documented as of this encounter Plan of Treatment Upcoming Encounters Date Type Department Care Team (Late st Contact Info) Description 03/17/2025 1:00 PM EDT Appointment [facility] [place] [address] 04/15/2025 8:45 AM EDT Appointment [facility] [place], [place] [id number] 04/15/2025 9:15 AM EDT [facility] [place] [address] Vane Hollingsworth MD [address] [place] [address] documented as of this encounter Procedures Procedure [...] - 145 mmol/L 03/16/2025 8:44 AM EDT [facility] Potassium 3.6 3.5 - 5.0 mmol/L 03/16/2025 8:44 AM EDT [facility] Chloride 109(H) 98 - 107 mmol/L 03/16/2025 8:44 AM EDT [facility] Total CO2 23 22 - 29 mmol/L 03/16/2025 8:44 AM EDT [facility] Anion Gap 12 7 - 16 mmol/L 03/16/2025 8:44 AM EDT [facility] Calcium 9.5 8.6 - 10.4 mg/dL 03/16/2025 8:44 AM EDT [facility] Glucose Lvl 83 70 - 99 mg/dL 03/16/2025 8:44 AM EDT [facility] BUN 20 6 - 20 mg/dL 03/16/2025 8:44 AM EDT [facility] Creatinine 0.73 0.51 - 1.30 mg/dL 03/16/2025 8:44 AM EDT [facility] Albumin 3.9 3.5 - 5.2 gm/dL 03/16/2025 8:44 AM EDT [facility] Total Protein 6.3(L) 6.4 - 8.3 gm/dL 03/16/2025 8:44 AM EDT [facility] Bili Total 0.2 0.2 - 1.3 mg/dL 03/16/2025 8:44 AM EDT [facility] ALT 12 <=41 U/L 03/16/2025 8:44 AM EDT [facility] AST 16 <=40 U/L 03/16/2025 8:44 AM EDT [facility] Alk Phos 81 36 - 123 U/L 03/16/2025 8:44 AM EDT [facility] eGFR (CKD-EPIcr 2020) 105 >=60 mL/min/1.7 3 m2 03/16/2025 8:44 AM EDT [facility] Comment:Estimated GFR was ca lculated using the CKD-EPIcr (2020) equation refit without race. The equation is recommended by the National Kidney Foundation - [place] [employer] Nephrology Task Force. Blood VENOUS STRUCTURE / Unknown Medicare Port / Unknown 03/16/2025 8:20 AM EDT 03/16/2025 8:20 AM EDT us Vane Hollingsworth MD CHEMISTRY ORDERABLES Final Result [place] [id number] * (ABNORMAL) CBC WITH DIFF (03/16/2025 8:20 AM EDT) WBC 10.6(H) 3.7 - 10.3 x10(3)/mc L 03/16/2025 8:27 AM EDT [facility] RBC 2.96(L) 3.90 - 5.20 x10(6)/mc L 03/16/2025 8:27 AM EDT [facility] Hgb 9.3(L) 11.2 - 15.7 g/dL 03/16/2025 8:27 AM EDT [facility] Hct 28.6(L) 34.0 - 45.0 % 03/16/2025 8:[address] [facility] MCV 96.6 80.0 - 100.0 fL 03/16/2025 8:[address] [facility] MCH 31.4 26.0 - 34.0 pg 03/16/2025 8:[address] [facility] MCHC 32.5 30.7 - 35.5 g/dL 03/16/2025 8:[address] [facility] RDW 16.8(H) <=14.9 % 03/16/2025 8:[address] [facility] Platelet 300 155 - 369 x10(3)/mc L 03/16/2025 8:[address] [facility] MPV 9.2 8.8 - 12.5 fL 03/16/2025 8:27 AM EDT [facility] Neut # Prelim 7.4(H) 1.6 - 6.1 x10(3)/mc L 03/16/2025 8:27 AM EDT [facility] Comment:Preliminary automate d absolute neutrophil count. Value may change if manual differential is indicated. Neut Percent 69.5 % 03/16/2025 8:27 AM EDT [facility] Comment:Neutrophils equals s egs plus bands Imm Gran% 0.2 % 03/16/2025 8:27 AM [facility] Comment:Automated count of m etamyelocytes, myelocytes and promyelocytes. Lymph Percent 14.1 % 03/16/2025 8:27 AM EDT [facility] [place] Percent 15.6 % 03/16/2025 8:27 AM EDT [facility] Eos Percent 0.2 % 03/16/2025 8:27 AM EDT [facility] Baso Percent 0.4 % 03/16/2025 8:27 AM EDT [facility] Neut # 7.4(H) 1.6 - 6.1 x10(3)/mc L 03/16/2025 8:27 AM EDT [facility] Comment:Neutrophils equals s egs plus bands IMMGRAN# 0.0 0.0 - 0.1 x10(3)/mc L 03/16/2025 8:27 AM EDT [facility] Comment:Automated count of m etamyelocytes, myelocytes and promyelocytes. An absolute IG <0.1 is reported as 0.0. Lymph # 1.5 1.2 - 3.9 x10(3)/mc L 03/16/2025 8:27 AM EDT [facility] [place] # 1.7(H) 0.3 - 0.9 x10(3)/mc L 03/16/2025 8:27 AM EDT [facility] Eos# 0.0 0.0 - 0.5 x10(3)/mc L 03/16/2025 8:27 AM EDT [facility] Baso # 0.0 0.0 - 0.1 x10(3)/mc L 03/16/2025 8:27 AM EDT [facility] Blood VENOUS STRUCTURE / Unknown Medicare Port / Unknown 03/16/2025 8:20 AM EDT 03/16/2025 8:20 AM EDT us Vane Hollingsworth MD HEMATOLOGY ORDERABLE S Final Result [facility] [address] [place], [place] [id number] documented in this encounter Visit Diagnoses Diagnosis [...] 03/16/2025 documented in this encounter Care Teams Braille Transcriber Relationship Specialty Start Date End Date Rodriguez Lindo [address] [place] [address] PCP - General Clinic/Center - [facility] ([facility]) 12/03/16 Vane Hollingsworth MD [address] [place] [address] Internal Medicine-Hematology and Oncology 02/21/25 Giovanna Joseph, RN Registered Nurse Infusion Therapy 03/16/25 03/16/25 documented as of this encounter
--- OUTSIDE RECORDS SUMMARY | 2025-03-16 08:13 | XMS_ITS | Encounter Summary ---
Author Organization [place] [address] Care Team Providers Care Data Entry Name Role Phone Rodriguez Lindo Primary Care Provider +1- [phone] Vane Hollingsworth MD Unavailable +1- [phone] Giovanna Joseph RN Unavailable Unavailable Reason for Visit * Oncology Medication Prior Authorization (Routine) - Authorized Specialty Diagnoses / Procedures Referred By Contac t Referred To Contact Diagnoses Malignant neoplasm of overlapping sites of left breast in female, estrogen receptor positive (HCC) Procedures ONCOLOGY MEDICATION AUTHORIZATION Vane Hollingsworth MD [address] [place] [address] Phone: tel: fax: Vane Hollingsworth MD [address] [place] [address] Phone: tel: fax: Referral ID Status Reason Start Date Expiration Date V isits Requested Visits Authorized [id number] Authorized 01/21/2025 01/21/2026 1 6 Encounter Details Date Type Department Care Team (Latest Contact Info) Description 03/16/2025 8:13 AM EDT Hospital Encounter [facility] [place], [place] [id number] Malignant neoplasm of overlapping sites of left [...] Sign Reading Time Taken Comments Blood Pressure 125/78 03/16/2025 12:31 PM EDT Pulse 72 03/16/2025 12:31 PM EDT Temperature - - Respiratory Rate - - Oxygen Saturation - - Inhaled Oxygen Concentration - - Weight - - Height - - Body Mass Index - - documented in this encounter Miscellaneous Notes * Patient Instructions - Giovanna Joseph RN - 03/16/2025 9:00 AM EDT [facility] Discharge Instructions Thank you for entrusting the [facility] with your care. We hope you [...] infection DON'T WAIT, PLEASE CALL US FIRST [phone]. [FOR URGENT ISSUES PLEASE DO NOT LEAVE A MESSAGE, FOLLOW PROMPTS TO THE DOCTOR SUPERVISOR ALUMINUM FABRICATION] For Gynecology / Oncology call : [phone] Our hours of operation are Friday - Friday 8:00 AM - 4:30 PM. [facility] [place] [address] [phone] [place] [id number] Results for orders placed or performed during [...] Gran% 0.2 % Lymph Percent 14.1 % [place] Percent 15.6 % Eos Percent 0.2 % Baso Percent 0.4 % Neut # 7.4 (H) 1.6 - 6.1 x10(3)/mcL IMMGRAN# 0.0 0.0 - 0.1 x10(3)/mcL Lymph # 1.5 1.2 - 3.9 x10(3)/mcL [place] # 1.7 (H) 0.3 - 0.9 x10(3)/mcL [...] PM EDT Appointment [facility] [place] [address] 04/15/2025 8:45 AM EDT Appointment [facility] [place], [place] [id number] 04/15/2025 9:15 AM EDT [facility]ointment [facility] [place], [place] [id number] Vane Hollingsworth MD [address] [place] [address] [phone] documented as of this encounter Visit Diagnoses Diagnosis Malignant neoplasm of overlapping sites of left breast in female, estrogen receptor positive (HCC)- Primary documented in this encounter Administered Medications Active Administered Medications - up to 1 most recent administrations Medication Order MAR Action Action Date Dose Rate Site 0.9 % NaCl infusion Intravenous, at 30 mL/hr, CONTINUOUS, Starting on Fri03/16/25 at 0930, Until Elena 03/17/25 at 0929, For pipeline dispatch operator during chemotherapy infusion., Dx: 1. Malignant neoplasm of overlapping sites of left breast in female, estrogen receptor positive (HCC)Indications:Malignan t neoplasm of overlapping sites of left breast in female, estrogen receptor positive (HCC) Rate/Dose Verify 03/16/2025 11:53 AM EDT 30 mL/hr heparin flush 100 unit/mL injection 500 Units 500 Units, Intravenous, PRN, Starting on Fri03/16/25 at 0919, Until Discontinued, Line Care, For Venous Access Device care and maintenance., Dx: 1. Malignant neoplasm of overlapping sites of left breast in female, estrogen receptor positive (HCC)Indications:Malignan t neoplasm of overlapping sites of left breast in female, estrogen receptor positive (HCC) Given 03/16/2025 12:34 PM EDT 500 Units sodium chloride 0.9% syringe 10 mL 10 mL, Intravenous, PRN, Starting on Fri03/16/25 at 0919, Until Discontinued, Line Care, For Venous Access Device care and maintenance., Dx: 1. Malignant neoplasm of overlapping sites of left breast in female, estrogen receptor positive (HCC)Indications:Malignan t neoplasm of overlapping sites of left breast in female, estrogen receptor positive (HCC) Given 03/16/2025 12:34 PM EDT 10 mL Inactive Administered Medications - up to 1 most recent administrations Medication Order MAR Action Action Date Dose Rate Site cycloPHOSphamide (CYTOXAN) 1,100 mg in sodium chloride [...] 10:48 AM EDT 140 mg 282 mL/hr palonosetron (ALOXI) injection 0.25 mg 0.25 mg, Intravenous, ONCE, 1 dose, On Fri03/16/25 at 0930, Dx: 1. Malignant neoplasm of overlapping sites of left breast in female, estrogen receptor positive (HCC)Indications:Malignant neoplasm of overlapping sites of left breast in female, estrogen receptor positive (HCC) Given 03/16/2025 9:32 AM EDT 0.25 mg documented in this encounter Care Teams Data Entry Relationship Specialty Start Date End Date [facility] [address] [place] [phone] PCP - General Clinic/Center - [facility] ([facility]) 12/03/16 Vane Hollingsworth MD [address] [place] [address] Internal Medicine-Hematology and Oncology 02/21/25 Giovanna Joseph, RN Registered Nurse Infusion Therapy 03/16/25 03/16/25 documented as of this encounter
--- OUTSIDE RECORDS SUMMARY | 2025-03-16 08:22 | XMS_ITS | Encounter Summary ---
Author [place] [address] Care Team Providers Care Chemistry Tutor Name Role Phone Rodriguez Lindo Primary Care Provider +1- [phone] Vane Hollingsworth MD Unavailable +1- [phone] Giovanna Joseph RN Unavailable Unavailable Reason for Visit * Reason Comments Follow-up Breast Cancer Malignant neoplasm o f overlapping sites of left breast in female, estrogen receptor positive Chemotherapy Encounter Details Date Type Department Care Team (Latest Contact Info) Description 03/16/2025 8:22 AM EDT Hospital Encounter [facility] [place] [address] Ana Rosa Del Angel, MARTÍN [address] [place], [place] [id number] Malignant neoplasm of overlapping sites of left breast in female, estrogen receptor positive (HCC) (Primary Dx); Encounter for antineoplastic chemotherapy Social History Tobacco Use Types Packs/Day Years [...] Sign Reading Time Taken Comments Blood Pressure 119/70 03/16/2025 8:32 AM EDT Pulse 74 03/16/2025 8:32 AM EDT Temperature 37 C (98.6 F) 03/16/2025 8:32 AM EDT Respiratory Rate - - Oxygen Saturation 100% 03/16/2025 8:32 AM EDT Inhaled Oxygen Concentration - - Weight 81.4 kg (179 lb 8 oz) 03/16/2025 8:32 AM EDT Height 167.6 cm (5' 6 ) 03/16/2025 8:32 AM EDT Body Mass Index 28.97 03/16/2025 8:32 AM EDT documented in this encounter Progress Notes * Ana Rosa Del Angel, MARTÍN - 03/16/2025 8:30 AM EDT Images from the original note were not included. Patient: Anne Kearney CSN: [id number] Date of : 1985 Age: 40 y.o. Date of Service: 03/16/2025 HEMATOLOGY/ONCOLOGY FU PATIENT OFFICE NOTE CURRENT TREATMENT: 12/15/2024 - TC X 4 (first cycle given in [place]) Outside oncology history: Diagnosis Invasive lobular carcinoma, 2 o'clock left breast, Jul 2024 Grade 2 ER 76%, DE 24%, HER-2 0/negative, Ki67 13% Stage IIB; pT2, pN1a Oncotype DX recurrence score: 17 [facility] BRCA 1/2 CancerNext genetic test: Positive pathogenic mutation detected: BRCA2 History Hepatitis C-treated Treatment Summary 07/29/24 Bilateral mastectomies with positive (09/13) left axillary SLNB by Dr Giovanna Tolentino/[facility] General Surgery 08/16/24 Initiated endocrine hormone therapy with Tamoxifen 20mg daily by Dr Oliverio Prescott/[facility] Medical Oncology 10/01/24 Prophylactic total hysterectomy with bilateral salpino-oophorectomy by Dr Ministerio Gamino/[facility] CONTRACT TECHNICIAN 10/11/24 - 12/01/24 Completed adjuvant radiation therapy with 5040cGy over 28 fractions to left breast[address] Dr Angelito Pierson/[facility] Radiation Oncology 10/18/24 Discontinue Tamoxifen. Initiate Letrozole 2.5mg daily by Dr Oliverio Prescott/[facility] Medical Oncology. 12/15/24 Taxotere, Cyclophosphamide + GCSF every for 3 weeks x4 cycles Cancer History 06/14/24 Bilateral screening mammogram ([facility]): No suspicious mammographic findings in the RIGHT breast. LEFT breast 4 mm focal asymmetry in the middle to posterior third, outer central breast, 3 o'clock position, 5 cm from the nipple on cc view. 06/14/24 Transvaginal US ([facility]): Physiologic appearance of the uterus and RIGHT ovary. LEFT 2.5 cm small ovarian cyst or dominant follicle, similar compared to 2024. Peripheral ovarian tissue not well demonstrated on this exam. Small free fluid in the pelvis. 06/18/24 Left diagnostic mammogram ([facility]): LEFT breast 4 mm oval, equal density mass with partially circumscribed, partially obscured margins in the middle to posterior third, outer central breast 3 o'clock position, 5 cm from the nipple. LEFT breast distortion in the posterior third, outer central breast, 2-3 o'clock position, 7 cm from the nipple on cc view 06/18/24 US left breast/axilla ([facility]): Targeted LEFT breast ultrasound 3:00 position, 5 [...] is at least 1.4 cm. ER 76%, DE 24%, HER-2 0/negative, Ki67 13% 06/29/24 MRI bilateral breast ([facility]): The breast tissue is heterogeneously dense with [...] (1/6) left axillary SLNB by Dr Giovanna Tolentino/[facility] General Surgery 07/29/24 Left breast, total mastectomy: [...] with Tamoxifen 20mg daily by Dr Oliverio Prescott/[facility] Medical Oncology 08/16/24 [facility] labs: CEA 3.75, CA 27-29 14; CBC-WBC 14.6; ANC 8.7; ALC 4.2; Hgb 12.1; MCV 88.9; platelets 361,000; CMP WNL; ferritin 19, iron 34, fe sat 7% 08/18/24 CT chest ([facility]): No evidence of metastatic disease in the chest. Postoperative change of bilateral mastectomy. 08/18/24 CT abd/pelvis ([facility]): No evidence of metastatic disease in the abdomen or pelvis. 08/18/24 Bone scan ([facility]): No evidence of osteoblastic metastatic disease by bone scan. 08/30/24 Oncotype DX recurrence score: 17 09/16/[address] Angelito Pierson/[facility] Radiation Oncology who recommended adjuvant radiation therapy with 5040 cGy over 28 fractions to left breast/left chest wall [facility] adjuvant [facility]. 09/20/[address] Oliverio Prescott/[facility] Medical Oncology who recommended referral to CONTRACT TECHNICIAN for prophylactic hysterectomy due to positive BRCA2 [...] + Ribociclib + Zometa. 09/27/24 Bone density ([facility]): Normal 10/01/24 Prophylactic total hysterectomy with bilateral salpino-oophorectomy by Dr Ministerio Gamino/[facility] CONTRACT TECHNICIAN 10/01/24 Uterus, cervix, bilateral tubes and ovaries, hysterectomy and bilateral salpingo-oophorectomy: Chronic cervicitis. Proliferative endometrium. Endometrial polyp. Adenomyosis. Completely transected right and left fallopian tubes and unremarkable fimbrial epithelial surface. Mesonephric cyst associated both left and right fallopian tubes. Corpora albicantia of right ovary.Corpora albicantia and 1 corpus hemorrhagicum of left ovary. Uterine weight of 141.7 g. 10/03/24 CT abd/pelvis ([facility]): Moderate pneumoperitoneum with scattered extraperitoneal air likely [...] fractions to left breast by Dr Angelito Pierson/[facility] Radiation Oncology 10/18/24 Follow-up evaluation with Dr Oliverio Prescott/[facility] Medical Oncology who recommended to discontinue Tamoxifen, initiate Letrozole 2.5mg daily and to anticipate adjuvant Taxotere 75mg/m2, Cyclophosphamide 600mg/m2 every 3 weeks x4 cycles 10/18/24 Discontinue Tamoxifen. Initiate Letrozole 2.5mg daily by Dr Oliverio Prescott/[facility] Medical Oncology 11/03/24 CT chest ([facility]): No acute abnormality in the chest. 11/03/24 US venous doppler upper right extremity ([facility]): There is no evidence of deep venous thrombosis of the right upper extremity. There is partial nonocclusive superficial thrombus in the cephalic vein. 12/01/24 Completed adjuvant radiation therapy with 5040cGy over 28 fractions to left breast by Dr Angelito Pierson/[facility] Radiation Oncology 12/15/24 First dose of TC HISTORY OF PRESENT ILLNESS: CC: Chief Complaint Patient presents with Follow-up Breast Cancer Malignant neoplasm of overlapping sites of left breast in female, estrogen receptor positive Chemotherapy Patient is a 40 y.o. female who presents for breast cancer follow up and treatment. First dose of TC in [facility] and moved locally and here to continue her treatment Here for cycle #4 TC Got established with new PCP Dr. Garza in [place] and was given pain medication at visit 03/02, did not go visit on 03/[address] Neves in [place]. Plan to not continue following with [place] and get established with pain management in . HISTORY: Medical, Surgical, Social, Family histories were reviewed MEDICATIONS & ALLERGIES Medications and Allergies reviewed PHYSICAL EXAM: Vitals: 03/16/25 0832 BP: 119/70 Pulse: 74 Temp: 98.6 ??F (37 ??C) SpO2: 100% Wt Readings from Last 2 Encounters: 03/16/25 179 lb 8 oz (81.4 kg) 02/21/25 181 lb 1.6 oz (82.1 kg) ECO Pertinent information: Physical Exam Constitutional: Appearance: Normal appearance. Cardiovascular: Rate and Rhythm: Normal rate. Pulmonary: Effort: Pulmonary effort is normal. Chest: Comments: Here for reference, no exam [...] positive (HCC) Encounter for antineoplastic chemotherapy - CBC WITH DIFF; Future - COMPREHENSIVE METABOLIC PANEL; Future Other orders - Cancel: 0.9 % NaCl infusion - Cancel: palonosetron (ALOXI) injection 0.25 mg - Cancel: dexAMETHasone (DECADRON) tablet 12 mg - Cancel: prochlorperazine edisylate (COMPAZINE) injection 10 mg - Cancel: DOCEtaxeL (TAXOTERE) 140 mg in sodium chloride 0.9 % 250 mL chemo infusion - Cancel: cycloPHOSphamide (CYTOXAN) 1,100 mg in sodium chloride 0.9 % 105.5 mL chemo infusion - Cancel: sodium chloride 0.9% syringe 10 mL - Cancel: alteplase (ACTIVASE) 1 mg in sterile water 2 mL injection - Cancel: heparin flush 100 unit/mL injection 500 Units - Cancel: diphenhydrAMINE (BENADRYL) injection 50 mg - Cancel: diphenhydrAMINE (BENADRYL) injection 25 mg - Cancel: methylPREDNISolone sodium succinate (Solu-MEDROL) injection 125 mg - Cancel: famotidine (PEPCID) injection 20 mg - Cancel: albuterol (PROVENTIL HFA;VENTOLIN HFA) inhaler 1-2 Puff - Cancel: 0.9 % NaCl infusion - Cancel: EPINEPHrine injection 0.3 mg - Cancel: racepinephrine (VAPONEFRIN) 2.25 % nebulizer solution 0.5 mL - Cancel: sodium chloride 0.9 % nebulizer solution 3 mL - pegfilgrastim-apgf (NYVEPRIA) injection 6 mg - Cancel: sodium chloride 0.9 % 1,000 mL IV bolus - Cancel: prochlorperazine edisylate (COMPAZINE) injection 10 mg Stage IIB-Invasive lobular carcinoma, 2 o'clock left breast, Grade 2, ER 76%, DE 24%, HER-2 0/negative, Ki67 13%, pT2, pN1a [...] not qualify for PARP on her stage Scheduled fluids for later in the week after C3 but was a no show for this visit (recall went to [facility] on 02/09 following C2.) Cycle #4 today TC - no dose change. Offered scheduled fluids with GCSF tomorrow and later this weekbut she has deferred and NS to last schedule appt. Discussed FU in ~ 4 weeks after this for labs and check in after treatment Genetic assessment 06/29/24 Anni LEONARDO 1/ CancerNext genetic test: Positive pathogenic mutation [...] visit on 03/[address] Neves in [place] -got scheduled with new PCP in [place] 03/03 who refilled her pain medication but also mentions goes to ED about 4 days following treatment for additional pain medication and fluids. Dispo: Return in about 4 weeks (around 04/13/2025) for LABS, MD JAEGER. Thank you for the opportunity to assist in the care of this patient, please feel free to contact meif I can be of any assistance. Ana Rosa Erlinda Del Angel APRN Hematology and Medical Oncology [facility] documented in this encounter Plan of Treatment Upcoming Encounters Date Type Department Care Team (Late st Contact Info) Description 03/17/2025 1:00 PM EDT Appointment [facility] [place], [place] [id number] 04/15/2025 8:45 AM EDT Appointment [facility] [place], [place] [id number] 04/15/2025 9:15 AM EDT Appointment [facility] [place], [place] [id number] Vane Hollingsworth MD [address] [place], [place] [id number] Scheduled Orders Name Type Priority Associated Diagnoses Orde r Schedule CBC WITH DIFF Lab Routine Encounter for antineoplastic chemotherapy 1 Occurrences starting 03/16/2025 until 03/16/2026 COMPREHENSIVE METABOLIC PANEL Lab Routine Encounter for antineoplastic chemotherapy 1 Occurrences starting 03/16/2025 until 03/16/2026 documented as of this encounter Visit Diagnoses Diagnosis Malignant neoplasm of overlapping sites of left breast in female, estrogen receptor positive (HCC)- Primary Encounter for antineoplastic chemotherapy documented in this encounter Care Teams Chemistry Tutor Relationship Specialty Start Date End Date [facility] [address] [place] [phone] PCP - General Clinic/Center - [facility] ([facility]) 12/03/16 Vane Hollingsworth MD [address] [place] [address] [id number] Internal Medicine-Hematology and Oncology 02/21/25 Giovanna Joseph, RN Registered Nurse Infusion Therapy 03/16/25 03/16/25 documented as of this encounter
--- OUTSIDE RECORDS SUMMARY | 2025-03-16 16:56 | XMS_ITS | Encounter Summary ---
Demographics Address [address] [place] [address] Mobile Phone Email Address Preferred Language en Marital Status Religion Affiliation Unknown Race White Ethnic Group Not or Lati no Author Organization Healthcare Address [address] [place] [address] Care Team Providers Care Director Of Scientific Research Name Role Phone Pcp, No Primary Care Provider Unavailabl e Encounter Details Date Type Department Care Team (Late st Contact Info) Description 03/16/2025 4:56 PM EDT - 03/16/2025 5:25 PM EDT Emergency [facility] Emergency Department [address] [place] [address] Discharge Disposition: Left WIthout Being [...] on filedocumented in this encounter Care Teams Director Of Scientific Research Relationship Specialty Start Date End Date Pcp, No [address] [place] [address] PCP - General Family Medicine 02/07/25 documented as of this encounter
[2025-03-16 18:50] VITALS: BP 124/72; PULSE 87; RESP 19; TEMP 36.7; O2SAT 98; BMI 28.8
--- OUTSIDE RECORDS SUMMARY | 2025-03-16 19:15 | XMS_ITS | Clinical Summary ---
Author Organization [facility] Address [address] [place] [phone] Phone Care Team Providers Care Shot Bagger Name Role Phone J-old, S-old Primary Care Physician Unavailab le Conditions or Problems Problem Name Problem Code Onset Date Status Entry Date Provider Comment Standard Description Annotate PELVIC PAIN 15628201 (SNOMED CT) 01/24 Active 01/24 Hallie Brown MD Pain in pelvis URI 19586427 (SNOMED CT) 01/07 Resolved 01/07 S-old J-old Upper respiratory infection Sinusitis, acute 39611220 (SNOMED CT) 01/17 Inactive 01/17 S-old J-old Acute sinusitis Allergic rhinitis 06301822 (SNOMED CT) 01/17 Active 01/17 S-old J-old Allergic rhinitis URI 76824523 (SNOMED CT) 01/07 Removed 01/07 S-old J-old Upper respiratory infection Hepatitis C antibody, positive serology 060116588 (SNOMED CT) 01/07 Active 01/07 Beatrizselvin Sandoval CNM Hepatitis C antibody detected Pelvic pain 91089397 (SNOMED CT) 01/02 Active 01/03 Beatrizselvin Sandoval CNM Pain in pelvis STD SCREENING 292356512 (SNOMED CT) 01/02 Inactive 01/03 Beatriz Mchorocío CNM Venereal disease screening Routine gynecological examination 16971116 (SNOMED CT) 01/02 Inactive 01/02 Beatrizselvin Sandoval CNM Gynecologic examination ABDOMINAL PAIN 99186275 (SNOMED CT) 04/24 Active 04/24 Iraida Mayorga APRN Abdominal pain Medications Medication Instructions Start Date Stop Date Generic Name NDC Provider METRONIDAZOLE 500 MG TABS Take 1 tablet by mouth every 12 hours METRONIDAZOLE [id number] Hallie Brown MD AZITHROMYCIN 250 MG TABS TAKE 2 TABLETS BY MOUTH DAY 1 THEN 1 TABLET EVERYDAY DAY 2 TO 5 AZITHROMYCIN 72270897524 S-old J-old LORATADINE 10 MG TABS TAKE 1 TABLET BY MOUTH 1 TIME A DAY NEEDED FOR ALLERGIES LORATADINE 28433159093 S-old J-old BROMFED DM 30-2-10 MG/5ML ORAL SYRUP TAKE 1 TEASPOON BY MOUTH 4 TIMES A DAY NEEDED FOR COUGH PSEUDOEPH-BROMPH EN-DM 34593988040 S-old J-old Medications Administered No information available. Allergies, Adverse Reactions, Alerts Allergy Name Reaction Description Start Date Severity Statu s Provider HYDROCODONE Critical Active Iraida Morales ammarzena VACCINE MANAGER Results Date Name Value Unit Range Flag Description Office Visit: F/U from ER fo r severe abdominal pain. RM #4 PREG TST URN negative beta HC G, urine, semiquantitative Office Visit: NEW ACUTE PT: SORE THROAT RM 6 RAPID STREP negative Streptoc occus pyogenes DNA [Presence] in Throat by DAVY with non-probe detection Lab Report: HIV 1/2 ANTIGEN/ ANTIBODY,FOURTH GENERATION W/RFL, HEPATITIS ... HEP C AB REACTIVE NON-REACTI A Hepatiti s C virus Ab [Presence] in Serum Plan of Care Type Date Detail Pending order Medication Recon ciliation Pending order G.C. Chlamydia ( lab order) Pending order BV Yeast Trich C ulture (Affirm) Pending order Ultrasound Pending order SNOMED-CT: 98503 [id number] Current Medications Documented Pending order Medication Recon ciliation Pending order SNOMED-CT: 38659 3000 Smoking Cessation Counseling Pending order SNOMED-CT: 74127 [id number] Current Medications Documented Pending order Medication Recon ciliation Pending order Strep Screen 878 80 Pending order SNOMED-CT: 50465 [id number] Current Medications Documented Pending order Hep C Ab Pending order BV Yeast Trich C ulture (Affirm) Pending order ThinPrep Pap w r eflex HR HPV mRNA E6/E7 Pending order HIV 1/2 Antigen & Antibodies -consent required Pending order Medication Recon ciliation Pending order BV Yeast Trich C ulture (Affirm) Pending Order exclud ed from report: Pending order RPR/VDRL Pending order Test Pending order Pelvic Ultrasoun d Patient education Medications Patient education Medications Patient education Medications Procedures Code Procedure Name Date Entry Date [facility]-[id number] Medication Reconciliation SCT-[id number] SNOMED-CT: 123613298 354665 Current Medications Documented OB US GEN Ultrasound 54301 [facility] # G.C. Chlamydia (lab order) 40849 [facility] # BV Yeast Trich Culture (Affirm) 201 02/10/19 SCT-[id number] Medication Reconciliation SCT-[id number] SNOMED-CT: 106872651 Smoking Cessation Counseling SCT-[id number] SNOMED-CT: 352594757 340064 Current Medications Documented SCT-[id number] Medication Reconciliation CPT-07487 Strep Screen 72373 2 SCT-[id number] SNOMED-CT: 882046512 720666 Current Medications Documented 799 [facility] # RPR/VDRL [id number] [facility] # BV Yeast Trich Culture (Affirm) 201 02/09/27 SCT-[id number] Medication Reconciliation 15348 [facility] # ThinPrep Pap w reflex HR HPV mRNA E 6/E7 8472 [facility] [place] [address] [facility] # HIV 1/2 Antigen & An tibodies -consent required CPT-G8447 Encounter documented using a certified EH R CPT-41530 Test PU Pelvic Ultrasound Vital Signs Date Name Value Unit Description BMI (Body Mass Index) 27.89 kg/m2 Bod y Mass Index (Ratio) BP Diastolic 69 mm[Hg] blood pressu re, diastolic BP Systolic 109 mm[Hg] blood pressur e, systolic BSA (Body Surface Area) 1.95 b yvette surface area Heart Rate 87 /min pulse rate Weight Measured 80.64 kg weight in kilograms E&M Weight Measured 177.4 [lb_av] weight E& M Weight Measured 177.4 [lb_av] weight E& M Body Temperature 97.9 [degF] temperat ure E&M Body Temperature 36.61 Lianne temperat ure in centigrade E&M Height 67 [in_us] height E&M Height 170.18 cm height in cent imeters E&M Immunizations No information available. Advance Directives No information available.
--- OUTSIDE RECORDS SUMMARY | 2025-03-16 19:16 | XMS_ITS | Clinical Summary ---
Demographics Address [address] [place] [phone] Mobile Phone Email Address Preferred Language en Marital Status Buddhism Affiliation Unknown Race White Ethnic Group Not or Lati no Author Organization Healthcare Address [address] [place] [address] Care Team Providers Care Wallpaper Inspector Name Role Phone Pcp, No Primary Care Provider Unavailabl e Allergies Active Allergy Reactions Criticality Noted Date Comments Hydrocodone Itching High 04/24/2011 Ketorolac Itching,Unknown - Pa tient states they do not know rxn details,Rash Medium 02/13/2024 unknown Tramadol Itching,Rash Medium 07/23/2011 Medications oxyCODONE (Roxicodone) 5 MG immediate release tablet Take 1 tablet by mouth every 8 hours as needed (pain). 10 tablet 02/28/2025 Active acetaminophen (Tylenol) 500 MG tablet Take 2 tablets by mouth every 6 hours as needed (pain) for up to 10 days. 100 tablet 02/07/2025 02/18/20 25 Encounters Date Type Department Care Team Description 03/16/2025 4:56 PM EDT - 03/16/2025 5:25 PM EDT Emergency [facility] [address] [place] [address] Discharge Disposition: Left WIthout Being Seen 03/16/2025 Travel 02/27/2025 10:52 PM EDT - 02/28/2025 1:08 AM EDT Emergency [facility] [address] [place] [address] García Matias MD Cancer associated pain (Primary Dx) Discharge Disposition: Home or Self Care 02/27/2025 Travel 02/07/2025 4:00 PM EDT - 02/07/2025 6:31 PM EDT [facility] [address] [place] [address] German Gonzalez DO Cancer associated pain (Primary Dx) Discharge Disposition: Home or Self Care 02/07/2025 [facility] [address] [place] [address] Boni Anna 02/07/2025 Travel from Last 3 Months Social History Tobacco Use Types Packs/Day Years [...] on file Sexual Orientation Not on file Last Filed Vital Signs Vital Sign Reading [...] Mass Index 29.04 02/27/2025 10:45 PM EDT Plan of Treatment Health Maintenance Due Date Last Done Comments [facility]-Depression Screening 1985 [facility]-/Child/Adol SDOH Screenings 1985 [id number] Vaccine (#1) 01/29/1989 [facility]-Obesity Intervention 01/29/1990 [facility]-Varicella Vaccines (1 of 2 - 13+ 2-dose series) 01/29/1997 [facility]- SDOH Screenings 01/29/2002 [facility]-Adult SDOH Screenings 01/29/2002 [facility]-Hepatitis B Vaccines (1 of 3 - 19+ 3-dose series) 01/29/2003 [facility]-Zoster Vaccines (1 of 2) 01/29/2003 [facility]-Pap Smear 01/29/2005 [facility]-Cervical Cancer Screening 01/29/2014 [facility]-HPV/Cotest 01/29/2014 [facility]-Pneumococcal Vaccine: Pediatrics (0 to 5 Years) and At-Risk Patients (6 to 49 Years) (2 of 2 - PCV) 06/28/2022 06/28/2021 [facility]-Influenza Vaccine (#1) 2025 06/11/2024 [facility]-DTaP,Tdap,and Td Vaccines (5 - Td or Tdap) 10/27/2033 10/27/2023, 06/28/2021, 03/08/2011, Additional history exists [facility]-Hepatitis A Vaccines Aged Out 03/04/2019 No longer eligible based on patient's age to complete this topic [facility]-HIV Screening Completed 02/07/2025 [facility]-Hepatitis C Screening Completed 02/07/2025 HPV Vaccines Aged Out No longer eligi ble based on patient's age to complete this topic [facility]-HIB Vaccines Aged Out No longer e ligible based on patient's age to complete this topic [facility]-IPV Vaccines Aged Out No longer e ligible based on patient's age to complete this topic [facility]-Rotavirus Vaccines Aged Out No lo nger eligible based on patient's age to complete this topic Procedures Procedure Name Priority Date/Time Associated Diagnosis Comments MORPHOLOGY STAT 02/27/2025 11:23 PM EDT MANUAL DIFFERENTIAL STAT 02/27/2025 1 1:23 PM EDT TEST QUALITATIVE PLASMA STAT 02/27/2025 11:23 PM EDT MAGNESIUM, PLASMA STAT 02/27/2025 11: 23 PM EDT COMPREHENSIVE METABOLIC PANEL, PLASMA STAT 02/27/2025 11:23 PM EDT CBC WITH AUTO DIFFERENTIAL STAT 02/27/2025 11:23 PM EDT HEPATITIS C VIRUS (HCV) QUANTITATIVE PCR - ED STAT 02/07/2025 5:00 PM EDT ED HIV 1/2 ANTIBODY/ANTIGEN SCREEN WITH REFLEX [...] PANEL, PLASMA STAT 02/07/2025 5:00 PM EDT from Last 3 Months Results * Morphology (02/27/2025 11:23 PM EDT) [facility] RBC Morphology RBC Morphology Consistent with Indices and RDW LAB HEMATOLOGY METHOD 02/27/2025 11:58 PM EDT [facility] Platelet Estimate Platelet smear estimate consistent with automated count LAB HEMATOLOGY METHOD 02/27/2025 11:58 PM EDT [facility] Blood Venous blood specimen / Unknown Venipuncture / Unknown 02/27/2025 11:23 PM EDT 02/27/2025 11:25 PM EDT us García Matias MD LAB BLOOD ORDERABLES Final Result [facility] [address] [place] [address] * (ABNORMAL) Manual Differential (02/27/2025 11:23 PM EDT) Blasts % 0 % LAB HEMATOLOGY METHOD 02/27/2025 11:58 PM EDT [facility] Promyelocytes % 0 % LAB HEMATOLOGY [...] LAB HEMATOLOGY METHOD 02/27/2025 11:58 PM EDT [facility] Blasts Absolute 0.00 10*3/UL LAB HEMATOLOGY METHOD 02/27/2025 11:58 PM EDT [facility] Promyelocytes Absolute 0.00 10*3/uL LAB HEMATOLOGY METHOD 02/27/2025 11:58 PM EDT [facility] Myelocytes Absolute 0.29 10*3/uL LAB HEMATOLOGY [...] LAB HEMATOLOGY METHOD 02/27/2025 11:58 PM EDT [facility] Basophils Absolute 0.00 0.00 - 0.10 10*3/uL LAB HEMATOLOGY METHOD 02/27/2025 11:58 PM EDT [facility] Blood Venous blood specimen / Unknown Venipuncture / Unknown 02/27/2025 11:23 PM EDT 02/27/2025 11:25 PM EDT us García Matias MD LAB BLOOD ORDERABLES Final Result [facility] [address] [place] [address] * (ABNORMAL) CBC w/diff (02/27/2025 11:23 PM EDT) WBC Count 7.30 3.70 - 10.30 10*3/uL LAB HEMATOLOGY METHOD 02/27/2025 11:58 PM EDT [facility] RBC Count 3.21(L) 3.90 - 5.20 10*6/uL LAB HEMATOLOGY METHOD 02/27/2025 11:58 PM EDT [facility] HGB 9.9(L) 11.2 - 15.7 g/dL LAB HEMATOLOGY METHOD 02/27/2025 11:58 PM EDT [facility] HCT 29.9(L) 34.0 - 45.0 % LAB HEMATOLOGY METHOD 02/27/2025 11:58 PM EDT [facility] Platelet Count 230 155 - 369 10*3/uL LAB HEMATOLOGY METHOD 02/27/2025 11:58 PM EDT [facility] MCV 93 79 - 98 fL LAB HEMATOLOGY METHOD 02/27/2025 11:58 PM EDT [facility] MCH 30.8 26.0 - 32.0 pg LAB HEMATOLOGY METHOD 02/27/2025 11:58 PM EDT [facility] MCHC 33.1 30.7 - 35.5 g/dL LAB HEMATOLOGY METHOD 02/27/2025 11:58 PM EDT [facility] RDW 15.3(H) 11.5 - 14.5 % LAB HEMATOLOGY METHOD 02/27/2025 11:58 PM EDT [facility] MPV 10.4 8.8 - 12.5 fL LAB HEMATOLOGY METHOD 02/27/2025 11:58 PM EDT [facility] nRBC 1.9(H) <=0.0 per 100 WBCs LAB HEMATOLOGY METHOD 02/27/2025 11:58 PM EDT [facility] Differential Type Manual LAB HEMATOLOGY METHOD 02/27/2025 11:58 PM EDT [facility] Blood Venous blood specimen / Unknown Venipuncture / Unknown 02/27/2025 11:23 PM EDT 02/27/2025 11:25 PM EDT Narrative [facility] - 02/27/2025 11:58 PM EDT Therapeutic decision making should be based on absolute values, rather than percentages. García Matias MD LAB BLOOD ORDERABLES Final Result Performing Organization Address City/[facility] Co de Phone Number [facility] [address] [place] [address] * hCG qualitative (02/27/2025 11:23 PM EDT) Test Negative Negative 02/27/2025 11:47 PM EDT [facility] Blood Venous blood specimen / Unknown Venipuncture / Unknown 02/27/2025 11:23 PM EDT 02/27/2025 11:25 PM EDT Narrative [facility] - 02/27/2025 11:47 PM EDT Reference Range: Males and non- females: Negative. García Matias MD LAB BLOOD ORDERABLES Final Result Performing Organization Address City/[facility]/ZIP Co de Phone Number [facility] [address] [place] [address] * Magnesium (02/27/2025 11:23 PM EDT) Magnesium, Plasma 2.2 1.9 - 2.4 mg/dL 02/27/2025 11:47 PM EDT [facility] Blood Venous blood specimen / Unknown Venipuncture / Unknown 02/27/2025 11:23 PM EDT 02/27/2025 11:25 PM EDT García Matias MD LAB BLOOD ORDERABLES Final Result [facility] [address] [place] [address] * (ABNORMAL) CMP (02/27/2025 11:23 PM EDT) Only the most recent of2 resultswithin the time period is included. Glucose, Plasma 110(H) 74 - 99 mg/dL 02/27/2025 11:47 PM EDT [facility] BUN, Plasma 11 7 - 21 mg/dL 02/27/2025 11:47 PM EDT [facility] Creatinine, Plasma 0.80 0.60 - 1.10 mg/dL 02/27/2025 11:47 PM EDT [facility] BUN/Creatinine Ratio 14 02/27/2025 11:47 PM EDT [facility] Sodium, Plasma 142 136 - 145 mmol/L 02/27/2025 11:47 PM EDT [facility] Potassium, Plasma 4.5 3.6 - 4.9 mmol/L 02/27/2025 11:47 PM EDT [facility] Chloride, Plasma 105 97 - 107 mmol/L 02/27/2025 11:47 PM EDT [facility] CO2, Plasma 26 22 - 29 mmol/L 02/27/2025 11:47 PM EDT [facility] Anion Gap 11 6 - 16 mmol/L 02/27/2025 11:47 PM EDT [facility] Total Calcium, Plasma 9.3 8.9 - 10.2 mg/dL 02/27/2025 11:47 PM EDT [facility] Total Protein 6.1(L) 6.3 - 7.9 g/dL 02/27/2025 11:47 PM EDT [facility] Albumin, Plasma 3.9 3.5 - 5.2 g/dL 02/27/2025 11:47 PM EDT [facility] AST, Plasma 29 10 - 35 U/L 02/27/2025 11:47 PM EDT [facility] ALT, Plasma 27 10 - 35 U/L 02/27/2025 11:47 PM EDT [facility] Alkaline Phosphatase, Plasma 132(H) 35 - 104 U/L 02/27/2025 11:47 PM EDT [facility] Total Bilirubin, Plasma <0.2(L) 0.2 - 1.1 mg/dL 02/27/2025 11:47 PM EDT [facility] eGFRcr 95.1 mL/min/1.7 3m*2 02/27/2025 11:47 PM EDT [facility] Comment:Reported eGFRcr in m L/min/1.73m2 is based the CKD-EPI 2020 equation that does not use a race coefficient. Blood Venous blood specimen / Unknown Venipuncture / Unknown 02/27/2025 11:23 PM EDT 02/27/2025 11:25 PM EDT us García Matias MD LAB BLOOD ORDERABLES Final Result Performing Organization Address City/[facility]/ZIP Co de Phone Number [facility] [address] [place] [address] * ED HIV 1/2 Antibody/Antigen Screen w/Reflex to HIV 1/2 Differentiation (02/07/2025 5:00 PM EDT) HIV 1 & 2 Antibody/Antigen Screen Non Reactive Non Reactive 02/07/2025 7:11 PM EDT [facility] Comment:Screening for HIV 1 & 2 antibodies, and P24 antigen is NONREACTIVE. No confirmatory testing is required. Blood Venous blood specimen / Unknown Venipuncture / Unknown 02/07/2025 5:00 PM EDT 02/07/2025 5:10 PM EDT Kunal Velázquez MD LAB BLOOD ORDERABLES Final Resul t Performing Organization Address City/[facility]/ZIP Co de Phone Number [facility] [address] [place] [address] * Hepatitis C Virus (HCV) Quantitative PCR - ED (02/07/2025 5:00 PM EDT) Hepatitis C Virus (HCV) Quantitative Interpretation Not Detected Not Detected. 02/08/2025 2:54 PM EDT [facility] Blood Venous blood specimen / Unknown Venipuncture / Unknown 02/07/2025 5:00 PM EDT 02/07/2025 5:10 PM EDT Narrative [facility] - 02/08/2025 2:54 PM EDT The [employer] M2000 HCV test is a Real Time [...] is FDA approved for clinical use. us Kunal Velzáquez MD LAB BLOOD ORDERABLES Final Resul t Performing Organization Address City/[facility]/[place] [address] * (ABNORMAL) Hepatitis C Antibody - ED (02/07/2025 5:00 PM EDT) [facility] Hepatitis C Antibody Positive(A ) Negative 02/07/2025 6:33 PM EDT [facility] Blood Venous blood specimen / Unknown Venipuncture / Unknown 02/07/2025 5:00 PM EDT 02/07/2025 5:10 PM EDT us Kunal Velázquez MD LAB BLOOD ORDERABLES Final Resul t Performing Organization Address [facility] Co de Phone Number [facility] [address] [place] [address] * (ABNORMAL) CBC (02/07/2025 5:00 PM EDT) [facility] WBC Count 3.22(L) 3.70 - 10.30 10*3/uL LAB HEMATOLOGY METHOD 02/07/2025 5:29 PM EDT [facility] RBC Count 3.44(L) 3.90 - 5.20 10*6/uL LAB HEMATOLOGY METHOD 02/07/2025 5:29 PM EDT [facility] HGB 10.4(L) 11.2 - 15.7 g/dL LAB HEMATOLOGY METHOD 02/07/2025 5:29 PM EDT [facility] HCT 31.8(L) 34.0 - 45.0 % LAB HEMATOLOGY METHOD 02/07/2025 5:29 PM EDT [facility] Platelet Count 212 155 - 369 10*3/uL LAB HEMATOLOGY METHOD 02/07/2025 5:29 PM EDT [facility] MCV 92 79 - 98 fL LAB HEMATOLOGY METHOD 02/07/2025 5:29 PM EDT [facility] MCH 30.2 26.0 - 32.0 pg LAB HEMATOLOGY METHOD 02/07/2025 5:29 PM EDT [facility] MCHC 32.7 30.7 - 35.5 g/dL LAB HEMATOLOGY METHOD 02/07/2025 5:29 PM EDT [facility] RDW 13.7 11.5 - 14.5 % LAB HEMATOLOGY METHOD 02/07/2025 5:29 PM EDT [facility] MPV 10.4 8.8 - 12.5 fL LAB HEMATOLOGY METHOD 02/07/2025 5:29 PM EDT [facility] nRBC 1.2(H) <=0.0 per 100 WBCs LAB HEMATOLOGY METHOD 02/07/2025 5:29 PM EDT [facility] Blood Venous blood specimen / Unknown Venipuncture / Unknown 02/07/2025 5:00 PM EDT 02/07/2025 5:09 PM EDT us Kunal Velázquez MD LAB BLOOD ORDERABLES Final Resul t [facility] [address] [place] [address] from Last 3 Months Insurance * Guarantor: Anne Kearney Account Type Relation to Patient Date of Phone Billing Address Personal/Family Self 1985 [address] [place] [address] [facility] MEDICAID Care Teams Wallpaper Inspector Relationship Specialty Start Date End Date Pcp, No [address] [place] [address] PCP - General Family Medicine 02/07/25
--- OUTSIDE RECORDS SUMMARY | 2025-03-16 19:16 | XMS_ITS | Encounter Summary ---
Demographics Address [address] [place] [phone] Mobile Phone Email Address Preferred Language en Marital Status Restoration Affiliation Unknown Race White Ethnic Group Not or Lati no Author Organization Healthcare Address [address] [place] [address] Care Team Providers Care Food Preparation Kitchen Aide Name Role Phone Pcp, No Primary Care Provider Unavailabl e Encounter Details Date Type Department Care Team (Latest Contact Info) Description 03/16/2025 Travel Social History Tobacco Use Types Packs/Day Years [...] on filedocumented in this encounter Care Teams Food Preparation Kitchen Aide Relationship Specialty Start Date End Date Pcp, No [address] [place] [address] PCP - General Family Medicine 02/07/25 documented as of this encounter
--- OUTSIDE RECORDS SUMMARY | 2025-03-16 19:16 | XMS_ITS | Encounter Summary ---
Author Organization [place] [address] Care Team Providers Care Tubular Riveter Name Role Phone Rodriguez Lindo Primary Care Provider +1- [phone] Eden Noble RN Unavailable Unavailable Encounter Details Date Type Department Care Team (Late st Contact Info) Description 02/09/2025 Nutrition Cancer Care Medical Oncology [place] [id number] Marika Damon RD, LD Social History Tobacco Use Types Packs/Day Years [...] on file documented as of this encounter Progress Notes * Marika Damon RD, LD - 02/09/2025 10:39 AM EDT Oncology Nutrition Visit: Type of Nutrition Encounter: New Assessment Referral source: Infusion Diagnosis/Cancer Type: Breast Nutrition impact symptoms: Poor appetite, Taste alterations, Nausea, Diarrhea, Constipation, Mucositis, Thrush Reported PO intakes: Fair PO Intake details/comments: Pt reports PO intake is more difficult due to side effects from tx, missy has been forcing herself to eat. She typically eats 1 meal per day and snacks the rest of the day. She does not drink any ONS. Diet: Regular Supplements: None Oncology History: 07/2024: invasive lobular carcinoma 07/29/24: bilateral mastectomy 08/2024: Tamoxifen 09/2024: prophylactic total hysterectomy 10/11-12/01: adjuvant radiation therapy 10/18: Tamoxifen d/c, initiate Letrozole 12/15: TC q21d x 4 cycles Past Medical History: Diagnosis Date Bipolar affective (HCC) Heroin overdose (HCC) Heroin use Insomnia Knee pain left Paranoid schizophrenia, chronic condition (HCC) Polysubstance abuse (HCC) 11/01/2017 Medications: Current Outpatient Medications Medication acetaminophen (TYLENOL) 500 mg Oral Tablet albuterol (PROVENTIL HFA;VENTOLIN HFA) 90 mcg/actuation Inhl HFA Aerosol Inhaler buPROPion (WELLBUTRIN SR) 150 mg Oral tablet sustained-release 12 hr dexAMETHasone (DECADRON) 4 mg Oral Tablet ibuprofen (ADVIL;MOTRIN) 800 mg Oral Tablet LICE TREATMENT 1 % Top Liquid loperamide (IMODIUM A-D) 2 mg Oral Tablet loratadine (CLARITIN) 10 mg Oral Tablet Magic Mouthwash (Lido/Diph/Nystat) oral compound ondansetron (ZOFRAN) 4 mg Oral Tablet oxybutynin (DITROPAN-XL) 5 mg Oral Tablet Extended Rel 24 hr oxyCODONE-acetaminophen (PERCOCET) 10-325 mg Oral Tablet promethazine (PHENERGAN) 12.5 mg Oral Tablet traZODone (DESYREL) 100 mg Oral Tablet No current facility-administered medications for this visit. Facility-Administered Medications Ordered in Other Visits Medication Dose Route Frequency Last Rate Last Admin 0.9 % NaCl infusion Intravenous Continuous 500 mL/hr at 02/09/25 1006 New Bag at 02/09/25 1006 heparin flush 100 unit/mL injection 500 Units 500 Units Intravenous PRN sodium chloride 0.9 % sterile syringe Intravenous PRN Given at 02/09/25 0846 sodium chloride 0.9% syringe Intravenous PRN 10 mL at 02/09/25 1006 Results: Lab Results Component Value Date WBC 28.7 (H) 02/09/2025 NA 142 02/09/2025 K 3.4 (L) 02/09/2025 MG 2.1 02/09/2025 CALCIUM 9.3 02/09/2025 BUN 10 02/09/2025 CREATININE 0.77 02/09/2025 GLU 101 (H) 02/09/2025 Anthropometrics: Height: 5' 6 (1.676 m) IBW: 130 lbs UBW: ~180 lbs Wt Readings from Last 10 Encounters: 02/09/25 179 lb 4.8 oz (81.3 kg) 02/01/25 179 lb 3.2 oz (81.3 kg) 01/14/25 183 lb 14.4 oz (83.4 kg) 02/26/24 180 lb (81.6 kg) 09/27/23 130 lb (59 kg) 11/01/17 139 lb 7 oz (63.2 kg) 01/01/17 196 lb (88.9 kg) 12/17/16 195 lb (88.5 kg) 12/03/16 195 lb (88.5 kg) 02/02/16 174 lb (78.9 kg) BMI Readings from Last 1 Encounters: 02/09/25 28.94 kg/m?? Weight change Wt stable at 179-183 lbs x 1 year (02/26/24-02/09/25) Nutritional Status and Summary: Visited pt and significant other in infusion suite for IVF. Pt reports side effects are making it more difficult to eat, but she has been forcing herself to eat to maintain nutritional status. Wt has been stable since starting tx. Pt developed thrush over the past few days, has burning in mouth with fluids- picking up MMW today. She has also experienced nausea since starting tx- no vomiting reported. She alternates between constipation and diarrhea at baseline. She reports most foods taste bland. Educated pt on the importance of nutrition to support body and prevent wt loss. Discussed nutritional management of taste changes, thrush, n/v/c/d. Emphasized the importance of protein and fluid intake. Encouraged small, frequent meals to help meet nutritional needs. Answered all of pt's nutrition-related questions, encouraged pt to reach out to RD with further concerns. RD will remain available for pt as needed/requested. MALNUTRITION ASSESSMENT Context: Chronic illness Status: At risk for malnutrition Findings of the 6 clinical characteristics of malnutrition (Minimum of 2 out of 6 clinical characteristics is required to make the diagnosis of moderate or severe Protein Calorie Malnutrition based on AND/ASPEN Guidelines): Estimated Nutrition Needs: kcals/day needs: 22-25 kcal/kg (1155-1171) gm protein/day needs: 1.2-1.5 gm/kg (98-122) Fluids ml/day needs: 1ml/kcal or per MD Plan/Interventions: Diet: Regular, High Calorie/High Protein Fluid/hydration: 64-90 oz daily Supplements: Ensure Clear Frequency of Supplements (Recommended): Daily (as needed) Nutrition-Related Medications: Antiemetics, Bowel Regimen, Oral care, Pain Management Medication Details:: Decadron, imodium PRN, MMW, Zofran, phenergan, percocet PRN Education: Role of cancer care RD, Nutritional goals for cancer care needs, Symptom managment, Small, frequent meals, Oral hydration needs, Tips for increasing calories & protein SHAGUFTA Cratagena, RD, LD documented in this encounter Plan of Treatment Upcoming Encounters Date Type Department Care Team (Late st Contact Info) Description 03/17/2025 1:00 PM EDT [facility]ointment [place] [address] 04/15/2025 8:45 AM EDT Appointment [facility] [place] [address] 04/15/2025 9:15 AM EDT Appointment [facility] [place] [address] Vane Hollingsworth MD [address] [place] [address] documented as of this encounter Visit Diagnoses Not on filedocumented in this encounter Care Teams Tubular Riveter Relationship Specialty Start Date End Date Rodriguez Lindo [address] [place] [phone] PCP - General Clinic/Center - [facility] ([facility]) 12/03/16 Eden Noble, RN Registered Nurse Infusion Therapy 02/09/25 02/09/25 documented as of this encounter
--- OUTSIDE RECORDS SUMMARY | 2025-03-16 19:16 | XMS_ITS | Encounter Summary ---
Demographics Address [address] [place] [address] Mobile Phone Email Address Preferred Language en Marital Status Hinduism Affiliation Unknown Race White Ethnic Group Not or Lati no Author Organization Healthcare Address [address] [place] [address] Care Team Providers Care It Business Process Architect Name Role Phone Pcp, No Primary Care Provider Unavailabl e Encounter Details Date Type Department Care Team (Latest Contact Info) Description 02/07/2025 Travel Social History Tobacco Use Types Packs/Day [...] Barfield RN documented as of this encounter Plan of Treatment Not on file documented as of this encounter Visit Diagnoses Not on filedocumented in this encounter Care Teams It Business Process Architect Relationship Specialty Start Date End Date Pcp, No [address] [place] [address] PCP - General Family Medicine 02/07/25 documented as of this encounter
--- OUTSIDE RECORDS SUMMARY | 2025-03-16 19:16 | XMS_ITS ---
Demographics Address [address] [place] [id number] Mobile Phone Email Address Preferred Language en Marital Status Jain Affiliation Unknown Race White Ethnic Group Not or Lati no Author Organization [place] Address [address] [place] [address] Care Team Providers Care Gunner Mate Name Role Phone Pcp, No Primary Care Provider Unavailabl e Hepatitis C Program Status:Closed (Closed) Start date:02/07/2025 Enrollment reason:HCV End date:02/07/2025 Close reason:HCV RNA Negative Continued Care and Services Coordination
--- OUTSIDE RECORDS SUMMARY | 2025-03-16 19:16 | XMS_ITS | Encounter Summary ---
Author Organization [place] [address] Care Team Providers Care Data Analytics Specialist Name Role Phone Rodriguez Lindo Primary Care Provider +1- [phone] Poli Felix RN Unavailable Unavailable Encounter Details Date Type Department Care Team (Late st Contact Info) Description 02/03/2025 Nutrition Cancer Care Medical Oncology [place] [id number] Marika Damon RD,JOSÉ MIGUEL Social History Tobacco Use Types Packs/Day Years [...] this encounter Progress Notes * Marika Damon RD,LD - 02/03/2025 8:13 AM EDT Nutrition Referral Received for Difficulty with change of taste with chemo. RD will plan to visitthis patient during upcoming cancer care appointment on 02/09 as able or call if needed. Full nutritional assessment to follow. Oncology-Related History and Treatment Plan: 07/2024: invasive lobular carcinoma 07/29/24: bilateral mastectomy 08/2024: Tamoxifen 09/2024: prophylactic total hysterectomy 10/11-12/01: adjuvant radiation therapy 10/18: Tamoxifen d/c, initiate Letrozole 12/15: TC q21d x 4 cycles SHAGUFTA Cartagena, RD, LD documented in this encounter Plan of Treatment Upcoming Encounters Date Type Department Care Team (Late st Contact Info) Description 03/17/2025 1:00 PM EDT Appointment [facility] [place], [place] [id number] 04/15/2025 8:45 AM EDT Appointment [facility] [place], [place] [id number] 04/15/2025 9:15 AM EDT Appointment [facility] Medical Oncology [place], [place] [id number] Vane Hollingsworth MD [address] [place] [id number] documented as of this encounter Visit Diagnoses Not on filedocumented in this encounter Care Teams Data Analytics Specialist Relationship Specialty Start Date End Date Alec Lindoington [address] [place] [phone] PCP - General Clinic/Center - [facility] ([facility]) 12/03/16 Poli Felix, PAMELA Registered Nurse Infusion Therapy 02/01/25 02/08/25 documented as of this encounter
--- OUTSIDE RECORDS SUMMARY | 2025-03-16 19:16 | XMS_ITS | Encounter Summary ---
Author Organization [place] [address] Care Team Providers Care Senior Lead Software Engineer Name Role Phone Rodriguez Lindo Primary Care Provider +1- [phone] Poli Felix RN Unavailable Unavailable Encounter Details Date Type Department Care Team (Late st Contact Info) Description 02/01/2025 Social Work [facility] Cancer Care [facility] Dr. Dominguez, [facility] Teresa Parrish, [facility] Social History Tobacco Use Types Packs/Day Years [...] 02/01/2025 8:00 AM Laisha Bee MA * Penelope Suicide Severity Rating Scale (Q shift for [...] Bar MA documented as of this encounter Progress Notes * Teresa Parrish MSW - 02/01/2025 10:54 AM EDT 02/01/25 1052 Continuous Mining Machine Operator Assessment Referred By Patient request Disease/[place] [facility] Needle Setter Assignment Breast cancer Referral Location: Infusion Reason for Referral Financial Identified Needs Adjustment to illness;Education/Information;Food Insecurity;Financial issues Social Work Interventions Brief Couseling/Support;Education/Information;Financial/Shaw;Community Re [facility];[place] CURRICULUM DIRECTOR met with Patient in infusion - Patient continues to struggle financially and is residing with her son in [place]. Patient will visit [facility] today while in [place]. CURRICULUM DIRECTOR communicated with Deirdre from [employer] and Patient can be serviced with food delivery through [employer]. CURRICULUM DIRECTOR sent referral. CURRICULUM DIRECTOR also completed [employer] referral to assist Patient financially to offset fuel costs. CURRICULUM DIRECTOR following. documented in this encounter Plan of Treatment Upcoming Encounters Date Type Department Care Team (Late st Contact Info) Description 03/17/2025 1:00 PM EDT Appointment [facility] [place] [address] 04/15/2025 8:45 AM EDT Appointment [place] [address] 04/15/2025 9:15 AM EDT Appointment [facility] [place] [address] Vane Hollingsworth MD [address] [place] [address] documented as of this encounter Visit Diagnoses Not on filedocumented in this encounter Care Teams Senior Lead Software Engineer Relationship Specialty Start Date End Date Rodriguez Lindo [address] [place] [phone] PCP - General Clinic/Center - [facility] ([facility]) 12/03/16 Poli Felix, RN Registered Nurse Infusion Therapy 5/27/25 6/3/25 documented as of this encounter
--- OUTSIDE RECORDS SUMMARY | 2025-03-16 19:16 | XMS_ITS | Encounter Summary ---
Demographics Address [address] [place] [phone] Mobile Phone Email Address Preferred Language en Marital Status Anabaptist Affiliation Unknown Race White Ethnic Group Not or Lati no Author Organization Healthcare Address [address] [place] [phone] Care Team Providers Care Buttermaker Helper Name Role Phone Pcp, No Primary Care Provider Unavailabl e Encounter Details Date Type Department Care Team (Latest Contact Info) Description 02/27/2025 Travel Social History Tobacco Use Types Packs/Day [...] as of this encounter Functional Status * AUDIT-C Score [...] occasion? Never 02/27/2025 10:48 PM EDT Nettie Silva, RN * Calculated C-SSRS Risk Score (Lifetime/Recent) Answer Date of Assessment Author No Risk Indicated 02/27/2025 11:11 PM EDT Dia Love * Question Answer Date of Assessment Author 1. Wish to be (Past 1 Month) No 025 11:11 PM EDT Dia Pagan 2. Non-Specific Active Suici cyndie Thoughts (Past 1 Month) No 02/27/2025 11:11 PM EDT Jhonny Pagan 6. Suicidal Behavior (Lifetime) No 5 11:11 PM EDT Dia Pagan documented as of this encounter Plan of Treatment Not on file documented as of this encounter Visit Diagnoses Not on filedocumented in this encounter Care Teams Buttermaker Helper Relationship Specialty Start Date End Date Pcp, No [address] [place] [address] PCP - General Family Medicine 02/07/25 documented as of this encounter
--- OUTSIDE RECORDS SUMMARY | 2025-03-16 19:16 | XMS_ITS | Encounter Summary ---
Demographics Address [address] [place] [address] Mobile Phone Email Address Preferred Language en Marital Status Pentecostal Affiliation Unknown Race White Ethnic Group Not or Lati no Author Organization Healthcare Address [address] [place] [address] Care Team Providers Care Edge Sawyer Name Role Phone Pcp, No Primary Care Provider Unavailabl e Encounter Details Date Type Department Care Team (Late st Contact Info) Description 02/07/2025 Patient Outreach [facility] Medicine Specialties [address] [place] [phone] Boni Anna Social History Tobacco Use Types Packs/Day Years [...] on filedocumented in this encounter Care Teams Edge Sawyer Relationship Specialty Start Date End Date Pcp, No [address] [place] [address] PCP - General Family Medicine 02/07/25 documented as of this encounter
--- OUTSIDE RECORDS SUMMARY | 2025-03-16 19:16 | XMS_ITS | Encounter Summary ---
Author Organization [place] [address] Care Team Providers Care Track Helper Name Role Phone Rodriguez Lindo Primary Care Provider +1- [phone] Encounter Details Date Type Department Care Team (Late st Contact Info) Description 01/19/2025 Social Work [facility] Cancer Care [facility] [place] [address] Sekou Berrios MSW Social History Tobacco Use Types Packs/Day Years [...] as of this encounter Progress Notes * Sekou Berrios MSW - 01/19/2025 10:18 AM EDT 01/19/25 1018 Payroll Representative Assessment Disease/[place] [facility] Evp Chief Exploration Officer Assignment Breast cancer Referral Location: [facility] Reason for Referral Financial Identified Needs Financial issues Social Work Interventions Education/Information;Financial/Shaw MIRZA Dorman contacted pt to discuss her OpSourcet message stating she was challenged to open the [employer] application. CLINICAL PSYCHOLOGIST asked pt how she could assist her. Pt confirmed she was able to open the documents but that she needed help getting it completed. Pt shared that she did not have income nor the income documentation needed for the application.Pt. Shard that she and her are homeless but need assistance with their car payment and car insurance that are in her husbands name. CLINICAL PSYCHOLOGIST informed pt that she needs to review the checklist requirements and gather as much of the information as requested. Pt shared that she would be able to come in tomorrow afternoon to get assistance to complete the application. CLINICAL PSYCHOLOGIST made it clear that this is a third democrat application and that she needs to complete her personal information. CLINICAL PSYCHOLOGIST sent pt a OpSourcet message with explicit details to assist her. Pt will be coming to the [place] tomorrow to use the computer in get the application completed. CLINICAL PSYCHOLOGIST shared that MIRZA Alcala may be present and available to answer questions or provide some assistance. SW following. documented in this encounter Plan of Treatment Upcoming Encounters Date Type Department Care Team (Late st Contact Info) Description 03/17/2025 1:00 PM EDT [place]ointment [place] [address] 04/15/2025 8:45 AM EDT Appointment [facility] [place], [place] [id number] 04/15/2025 9:15 AM EDT Appointment [facility] Medical Oncology [place], [place] [phone] Vane Hollingsworth MD [address] [place] [address] documented as of this encounter Visit Diagnoses Not on filedocumented in this encounter Care Teams Track Helper Relationship Specialty Start Date End Date [facility] [address] [place] [address] PCP - General Clinic/Center - [facility] ([facility]) 12/03/16 documented as of this encounter
--- OUTSIDE RECORDS SUMMARY | 2025-03-16 19:16 | XMS_ITS | Encounter Summary ---
Author Organization [place] [address] Care Team Providers Care Millwork Estimator Name Role Phone Rodriguez Lindo Primary Care Provider +1- [phone] Eden Noble RN Unavailable Unavailable Reason for Visit * Reason Onset Date Comments Medication Refill 02/09/2025 Encounter Details Date Type Department Care Team (Late st Contact Info) Description 02/09/2025 Refill [place] [address] Ana Rosa Del Angel, [address] [place] [address] Medication Refill Social History Tobacco Use Types Packs/Day Years [...] on file documented as of this encounter Ordered Prescriptions Prescription Sig Dispense Quantity Refills Last Filled Start Date End Date oxyCODONE-acetamin ophen (PERCOCET) 10-325 mg Oral TabletIndications: Low back pain, unspecified back pain laterality, unspecified chronicity, unspecified whether sciatica present Take 1 Tablet by mouth every 6 hours as needed for Chronic Pain (G89.29). Do not fill before 02/13. 76 Tablet 02/13/2025 documented in this encounter Miscellaneous Notes * Telephone Encounter - Ana Rosa Del Angel APRN - 02/09/2025 4:29 PM EDT Refill chronic pain medication to fill on 02/13. Sent to MD for signature. documented in this encounter Plan of Treatment Upcoming Encounters Date Type Department Care Team (Late st Contact Info) Description 03/17/2025 1:00 PM EDT Appointment [place] [address] 04/15/2025 8:45 AM EDT Appointment [facility] [place], [place] [id number] 04/15/2025 9:15 AM EDT Appointment [facility] [place] [address] Vane Hollingsworth MD [address] [place] [address] documented as of this encounter Visit Diagnoses Diagnosis Malignant neoplasm of overlapping sites of left breast in female, estrogen receptor positive (HCC) Low back pain, unspecified back pain laterality, unspecified chronicity, unspecified whether sciatica present documented in this encounter Discontinued Medications Medication Sig Discontinue Reason Start Date End Da te oxyCODONE-acetaminophen (PERCOCET) 10-325 mg Oral TabletIndications:Malign ant neoplasm of overlapping sites of left breast in female, estrogen receptor positive (HCC),Low back pain, unspecified back pain laterality, unspecified chronicity, unspecified whether sciatica present Take 1 Tablet by mouth every 6 hours as needed for Chronic Pain (G89.29). Reorder 01/14/2025 02/09/2025 documented as of this encounter Care Teams Millwork Estimator Relationship Specialty Start Date End Date Rodriguez Lindo [address] [place], [place] [phone] PCP - General Clinic/Center - [facility] ([facility]) 12/03/16 Eden Noble, RN Registered Nurse Infusion Therapy 02/09/25 02/09/25 documented as of this encounter
--- OUTSIDE RECORDS SUMMARY | 2025-03-16 19:16 | XMS_ITS | Encounter Summary ---
Author Organization [place] [address] Care Team Providers Care Slasher Operator Name Role Phone Rodriguez Lindo Primary Care Provider +1- [phone] Poli Felix RN Unavailable Unavailable Reason for Visit * Reason Onset Date Comments Symptom Call 02/07/2025 Encounter Details Date Type Department Care Team (Late st Contact Info) Description 02/07/2025 Telephone [facility] [place] [address] Vane Hollingsworth MD [address] [place] [address] Symptom Call Social History Tobacco Use Types Packs/Day Years [...] Refills Last Filled Start Date End Date Magic Mouthwash (Lido/Diph/Nystat) oral compoundIndications :Malignant neoplasm of overlapping sites of left breast in female, estrogen receptor positive (HCC) Take 10-20 mL by mouth every 3 hours as needed. 450 mL 02/07/2025 02/07/2026 documented in this encounter Miscellaneous Notes * Telephone Encounter - Daniella Wray RN - 02/07/2025 8:50 AM EDT Call placed to pt regarding MyChart message. Pt states her throat is sore and she has pockets of infection in the back of her throat and working its way up and her tongue has a white film. Ok per MD to send in Magic Mouthwash. Script sent to pt's preferred pharmacy. documented in this encounter Plan of Treatment Upcoming Encounters Date Type Department Care Team (Late st Contact Info) Description 03/17/2025 1:00 PM EDT Appointment [facility] [place] [address] 04/15/2025 8:45 AM EDT Appointment [facility] [place], [place] [id number] 04/15/2025 9:15 AM EDT Appointment [facility] [place] [address] Vane Hollingsworth MD [address] [place] [address] documented as of this encounter Visit Diagnoses Diagnosis Malignant neoplasm of overlapping sites of left breast in female, estrogen receptor positive (HCC)- Primary documented in this encounter Care Teams Slasher Operator Relationship Specialty Start Date End Date TommywadleyAlecClaiborne [address] [place] [address] PCP - General Clinic/Center - [facility] ([facility]) 12/03/16 Poli Felix, PAMELA Registered Nurse Infusion Therapy 02/01/25 02/08/25 documented as of this encounter
--- OUTSIDE RECORDS SUMMARY | 2025-03-16 19:16 | XMS_ITS | Encounter Summary ---
Author Organization [facility] [address] Care Team Providers Care Vendor Management Associate Name Role Phone Rodriguez Lindo Primary Care Provider +1- [phone] Poli Felix RN Unavailable Unavailable Encounter Details Date Type Department Care Team (Late st Contact Info) Description 02/03/2025 Orders Only [facility] [place], [place] [id number] Sosa Ernst, BEVELING MACHINE OPERATOR [address] [place], [place] [id number] Malignant neoplasm of overlapping sites of left [...] as of this encounter Progress Notes * Sosa Ernst, BEVELING MACHINE OPERATOR - 02/03/2025 2:27 PM EDT unscheduled office visit-02/04/25 CINV documented in this encounter Plan of Treatment Upcoming Encounters Date Type Department Care Team (Late st Contact Info) Description 03/17/2025 1:00 PM EDT Appointment [facility] [place] [address] 04/15/2025 8:45 AM EDT Appointment [facility] [place], [place] [id number] 04/15/2025 9:15 AM EDT [facility]ment [facility] [place] [address] Vane Hollingsworth MD [address] [place], [place] [id number] documented as of this encounter Results * MAGNESIUM LEVEL (02/09/2025 8:45 AM EDT) Pathologist [facility] Magnesium 2.1 1.6 - 2.4 mg/dL 02/09/2025 9:32 AM EDT [facility] Blood VENOUS STRUCTURE / Unknown Medicare Port / Unknown 02/09/2025 8:45 AM EDT 02/09/2025 8:46 AM EDT us Sosa Ernst APRN CHEMISTRY ORDERABLES Ernestine l Result [facility] [address] [place], [place] [address] * (ABNORMAL) COMPREHENSIVE METABOLIC PANEL (02/09/2025 8:45 AM EDT) Sodium 142 136 - 145 mmol/L 02/09/2025 9:32 AM EDT [facility] Potassium 3.4(L) 3.5 - 5.0 mmol/L 02/09/2025 9:32 AM EDT [facility] Chloride 107 98 - 107 mmol/L 02/09/2025 9:32 AM EDT [facility] Total CO2 23 22 - 29 mmol/L 02/09/2025 9:32 AM EDT [facility] Anion Gap 12 7 - 16 mmol/L 02/09/2025 9:32 AM EDT [facility] Calcium 9.3 8.6 - 10.4 mg/dL 02/09/2025 9:32 AM EDT [facility] Glucose Lvl 101(H) 70 - 99 mg/dL 02/09/2025 9:32 AM EDT [facility] BUN 10 6 - 20 mg/dL 02/09/2025 9:32 AM EDT [facility] Creatinine 0.77 0.51 - 1.30 mg/dL 02/09/2025 9:32 AM EDT [facility] Albumin 4.0 3.5 - 5.2 gm/dL 02/09/2025 9:32 AM EDT [facility] Total Protein 6.3(L) 6.4 - 8.3 gm/dL 02/09/2025 9:32 AM EDT [facility] Bili Total <0.2(L) 0.2 - 1.3 mg/dL 02/09/2025 9:32 AM EDT [facility] ALT 15 <=41 U/L 02/09/2025 9:32 AM EDT [facility] AST 23 <=40 U/L 02/09/2025 9:32 AM EDT [facility] Alk Phos 109 36 - 123 U/L 02/09/2025 9:32 AM T [facility] eGFR (CKD-EPIcr 2020) 99 >=60 mL/min/1.7 3 m2 02/09/2025 9:32 AM EDT [facility] Comment:Estimated GFR was ca lculated using the CKD-EPIcr (2020) equation refit without race. The equation is recommended by the [employer] - [place] [employer]ph[employer] Task Force. Blood VENOUS STRUCTURE / Unknown Medicare Port / Unknown 02/09/2025 8:45 AM EDT 02/09/2025 8:46 AM EDT us Elcho E [facility] BEVELING MACHINE OPERATOR CHEMISTRY ORDERABLES Ernestine l Result [facility] [address] [place] [address] * (ABNORMAL) CBC WITH DIFF (02/09/2025 8:45 AM EDT) WBC 28.7(H) 3.7 - 10.3 x10(3)/mc L 02/09/2025 9:45 AM EDT [facility] Comment:This is an appended report. These results have been appended to a previously preliminary verified report. RBC 3.12(L) 3.90 - 5.20 x10(6)/mc L 02/09/2025 9:45 AM EDT [facility] Hgb 9.6(L) 11.2 - 15.7 g/dL 02/09/2025 9:45 AM EDT [facility] Hct 29.9(L) 34.0 - 45.0 % 02/09/2025 9:45 AM EDT [facility] MCV 95.8 80.0 - 100.0 fL 02/09/2025 9:45 AM EDT [facility] MCH 30.8 26.0 - 34.0 pg 02/09/2025 9:45 AM EDT [facility] MCHC 32.1 30.7 - 35.5 g/dL 02/09/2025 9:45 AM EDT [facility] RDW 13.9 <=14.9 % 02/09/2025 9:45 AM EDT [facility] Platelet 217 155 - 369 x10(3)/mc L 02/09/2025 9:45 AM EDT [facility] MPV 9.5 8.8 - 12.5 fL 02/09/2025 9:45 AM EDT [facility] NRBC Auto % 0.8(H) <=0.0 % 02/09/2025 9:45 AM EDT [facility] Comment:This is an appended report. These results have been appended to a previously preliminary verified report. NRBC# 0.2 x10(3)/mc L 02/09/2025 9:45 AM EDT [facility] Comment:This is an appended report. These results [...] 9:45 AM EDT [facility] [place] # 2.3(H) 0.3 - 0.9 x10(3)/mc L [...] AM EDT 02/09/2025 8:46 AM EDT us Sosa Ernst APRN HEMATOLOGY ORDERABLES Fin al Result [facility] [address] [place] [address] [facility] [employer] [facility] [address] , [address] [place] [id number] documented in this encounter Visit Diagnoses Diagnosis Malignant neoplasm of overlapping sites of left breast in female, estrogen receptor positive (HCC)- Primary documented in this encounter Care Teams Vendor Management Associate Relationship Specialty Start Date [facility] [address] [place] [address] PCP - General Clinic/Center - [facility] ([facility]) 12/03/16 Poli Felix, RN Registered Nurse Infusion Therapy 02/01/25 02/08/25 documented as of this encounter
--- OUTSIDE RECORDS SUMMARY | 2025-03-16 19:16 | XMS_ITS ---
Author Organization [facility] Address [address] [place] [place] [address] Phone Care Team Providers Care Waist Cutter Name Role Phone Rodriguez Lindo Primary Care Provider +1- [phone] Vane Hollingsworth MD Unavailable +1- [phone] Giovanna Joseph RN Unavailable Unavailable Active Problems Problem Noted Date Diagnosed Date Malignant neoplasm of overla pping sites of left breast in female, estrogen receptor positive 01/14/2025 Chronic thoracic back pain 11/01/2017 Polysubstance abuse 11/01/2017 Acute septic pulmonary embolism without acute co r pulmonale 11/01/2017 Acute chest pain 11/01/2017 Sepsis 11/01/2017 Right upper quadrant pain 11/01/2017 Current Treatment and Therapy Plans ONC DOCEtaxel + cyclophosphamide (TC) + N Q21D* Plan Start Date:01/14/2025 Plan Provider:Vane Hollingsworth MD Linked Problems Malignant neoplasm of overla pping sites of left breast in female, estrogen receptor positive (HCC) Treatment Medications Current Day (Day 2 , Cycle 4 - Planned for 03/17/2025) cyclophosphamide (CYTOXAN)cy clophosphamide (CYTOXAN) chemo infusionDOCEtaxel (TAXOTERE)DOCEtaxel (TAXOTERE) chemo infusion (< 180 mg) No medications scheduled. ONCSEH hydration + pre-meds + electrolytes* Plan Start Date:02/25/2025 Plan Provider:Vane Hollingsworth MD Linked Problems Malignant neoplasm of overla pping sites of left breast in female, estrogen receptor positive (HCC) Treatment Medications Current Day (Day 1 , Cycle 1 - Planned for 02/25/2025) Next Day (Day 1, Cycle 2 - Planned for 03/04/2025) No medications scheduled. No medications schedul ed. No medications scheduled. ONCSEH PORT/PICC FLUSH* Plan Start Date:01/14/2025 Plan Provider:Vane Hollingsworth MD Linked Problems Malignant neoplasm of overla pping sites of left breast in female, estrogen receptor positive (HCC) Treatment Medications No medications scheduled. Past Treatment and Therapy Plans ONCOLOGY SUPPORTIVE CARE Plan Name Start Date Discontinue Date Treatment Medications Discontinue Reason Plan Provider Cycles [facility] Supportive Care Hyperemesis and Dehydration 02/09/2025 02/24/2025 No medications scheduled. Reorder Vane Hollingsworth MD 1 of 2 cycles started
--- OUTSIDE RECORDS SUMMARY | 2025-03-16 19:16 | XMS_ITS | Encounter Summary ---
Author Organization [place] [address] Care Team Providers Care Stick Puller Name Role Phone Rodriguez Lindo Primary Care Provider +1- [phone] Poli Felix RN Unavailable Unavailable Reason for Visit * Reason Onset Date Comments Medication Refill 02/07/2025 Encounter Details Date Type Department Care Team (Late Contact Info) Description 02/07/2025 Refill [facility] [place] [id number] Ana Rosa Del Angel, MARTÍN [address] [place] [address] Medication Refill Social History Tobacco Use Types [...] Encounters Date Type Department Care Team (Late Contact Info) Description 03/17/2025 1:00 PM EDT Appointment [facility] [place], [place] [phone] 04/15/2025 8:45 AM EDT Appointment [facility] [place], [place] [phone] 04/15/2025 9:15 AM EDT Appointment [facility] [place], [place] [phone] Vane Hollingsworth MD [address] [place] [phone] documented as of this encounter Visit Diagnoses Diagnosis Encounter for antineoplastic chemotherapy documented in this encounter Care Teams Stick Puller Relationship Specialty Start Date End Date [facility] [address] [place] [id number] PCP - General Clinic/Center - [facility] ([facility]) 12/03/16 Poli Felix, PAMELA Registered Nurse Infusion Therapy 02/01/25 02/08/25 documented as of this encounter
--- OUTSIDE RECORDS SUMMARY | 2025-03-16 19:17 | XMS_ITS | Clinical Summary ---
Author Organization [facility] Scott SHERLY Address [address] [place] [address] Phone Care Team Providers Care Hide Cleaner Name Role Phone Rodriguez Lindo Primary Care Provider [phone]- [phone] Vane Hollingsworth MD Unavailable +1- [phone] Giovanna Joseph RN Unavailable Unavailable Allergies Active Allergy Reactions Criticality Noted Date Comments Hydrocodone-Acetaminophen Itching Medium 02/10/2011 Ketorolac Other (See Comments),Itching,Rash Medium 02/13/2024 unknown Tramadol Itching,Rash Medium 07/23/2011 Medications albuterol (PROVENTIL HFA;VENTOLIN HFA) 90 mcg/actuation Inhl HFA Aerosol Inhaler Inhale 2 Puffs into the lungs every 6 hours as needed. 2 Active buPROPion (WELLBUTRIN SR) 150 mg Oral tablet sustained-release 12 hrIndications:Lesly gnant neoplasm of overlapping sites of left breast in female, estrogen receptor positive (HCC),Low back pain, unspecified back pain laterality, unspecified chronicity, unspecified whether sciatica present Take 1 Tablet by mouth 2 times daily. 60 Tablet 4 5 Active ondansetron (ZOFRAN) 4 mg Oral TabletIndications: Malignant neoplasm of overlapping sites of left breast in female, estrogen receptor positive (HCC),Low back pain, unspecified back pain laterality, unspecified chronicity, unspecified whether sciatica present Take 1 Tablet by mouth every 8 hours as needed for Nausea. 45 Tablet 2 5 Active promethazine (PHENERGAN) 12.5 mg Oral TabletIndications: Malignant neoplasm of overlapping sites of left breast in female, estrogen receptor positive (HCC),Low back pain, unspecified back pain laterality, unspecified chronicity, unspecified whether sciatica present Take 1 Tablet by mouth every 6 hours as needed for Nausea. 30 Tablet 2 5 Active oxybutynin (DITROPAN-XL) 5 mg Oral Tablet Extended Rel 24 hrIndications:Lesly gndarrel neoplasm of overlapping sites of left breast in female, estrogen receptor positive (HCC),Low back pain, unspecified back pain laterality, unspecified chronicity, unspecified whether sciatica present Take 1 Tablet by mouth daily. 30 Tablet 2 5 Active dexAMETHasone (DECADRON) 4 mg Oral TabletIndications: Malignant neoplasm of overlapping sites of left breast in female, estrogen receptor positive (HCC) Take 2 tablets in the am and 2 in the pm with food on the day before each treatment, take 2 table in the pm on the day of treatment and 2 tablets in the am on the 2 days follow each treatment. 30 Tablet 5 Active loratadine (CLARITIN) 10 mg Oral TabletIndications: Encounter for antineoplastic chemotherapy Take 1 Tablet by mouth daily. 30 Tablet 11 5 Active ibuprofen (ADVIL;MOTRIN) 800 mg Oral TabletIndications: Encounter for antineoplastic chemotherapy Take 1 Tablet by mouth every 8 hours as needed for Pain. 30 Tablet 1 5 Active traZODone (DESYREL) 100 mg Oral TabletIndications: Other insomnia Take 1 Tablet by mouth nightly as needed for Sleep. at bedtime 30 Tablet 2 5 Active loperamide (IMODIUM A-D) 2 mg Oral TabletIndications: Malignant neoplasm of overlapping sites of left breast in female, estrogen receptor positive (HCC),Diarrhea, unspecified type Take 2 tablets immediately, the 1 after each diarrhea stool. OK to take up to 8 tablets daily. 30 Tablet 2 5 Active Magic Mouthwash (Lido/Diph/Nystat) oral compoundIndication s:Malignant neoplasm of overlapping sites of left breast in female, estrogen receptor positive (HCC) Take 10-20 mL by mouth every 3 hours as needed. 450 mL 5 026 Active LICE TREATMENT 1 % Top Liquid APPLY TOPICALLY TO AREA FOR 1 DOSE 5 Active oxyCODONE-acetamin ophen (PERCOCET) 10-325 mg Oral TabletIndications: Low back pain, unspecified back pain laterality, unspecified chronicity, unspecified whether sciatica present Take 1 Tablet by mouth every 6 hours as needed for Chronic Pain (G89.29). Do not fill before 02/13 date. 76 Tablet 5 Active acetaminophen (TYLENOL) 500 mg Oral Tablet Take 1,000 mg by mouth every 6 hours as needed. 5 025 Active Problems Problem Noted Date Diagnosed Date Malignant neoplasm of overla pping sites of left breast in female, estrogen receptor positive 01/14/2025 Chronic thoracic back pain 11/01/2017 Polysubstance abuse 11/01/2017 Acute septic pulmonary embolism without acute co r pulmonale 11/01/2017 Acute chest pain 11/01/2017 Sepsis 11/01/2017 Right upper quadrant pain 11/01/2017 Encounters Date Type Department Care Team Description 03/16/2025 8:22 AM EDT Hospital Encounter [facility] [place] [address] Ana Rosa Del Angel, MARTÍN Malignant neoplasm of overlapping sites of left breast in female, estrogen receptor positive (HCC) (Primary Dx); Encounter for antineoplastic chemotherapy 03/16/2025 8:13 AM EDT Hospital Encounter [place] [address] Malignant neoplasm of overlapping sites of left breast in female, estrogen receptor positive (HCC) (Primary Dx) 03/16/2025 8:12 AM EDT Hospital Encounter [place] [address] Malignant neoplasm of overlapping sites of left breast in female, estrogen receptor positive (HCC) (Primary Dx) 02/22/2025 1:14 PM EDT - 02/22/2025 11:59 PM EDT Hospital Encounter [facility] [place] [address] Malignant neoplasm of overlapping sites of left breast in female, estrogen receptor positive (HCC) (Primary Dx) Discharge Disposition: Home or Self Care 02/21/2025 9:20 AM EDT - 02/21/2025 11:59 PM EDT Hospital Encounter [place] [address] Malignant neoplasm of overlapping sites of left breast in female, estrogen receptor positive (HCC) (Primary Dx) Discharge Disposition: Home or Self Care 02/21/2025 8:27 AM EDT - 02/21/2025 9:19 AM EDT Hospital Encounter [facility] [place] [address] Vane Hollingsworth MD Malignant neoplasm of overlapping sites of left breast in female, estrogen receptor positive (HCC) (Primary Dx) Discharge Disposition: Home or Self Care 02/21/2025 8:13 AM EDT - 02/21/2025 8:26 AM EDT Hospital Encounter [place] [address] Malignant neoplasm of overlapping sites of left breast in female, estrogen receptor positive (HCC) (Primary Dx) Discharge Disposition: Home or Self Care 02/14/2025 11:04 AM EDT - 02/14/2025 11:59 PM EDT Hospital Encounter [facility] [place] [address] Malignant neoplasm of overlapping sites of left breast in female, estrogen receptor positive (HCC) (Primary Dx) Discharge Disposition: Home or Self Care 02/14/2025 10:51 AM EDT - 02/14/2025 11:03 AM EDT Hospital Encounter [place] [address] Malignant neoplasm of overlapping sites of left breast in female, estrogen receptor positive (HCC) (Primary Dx); Antineoplastic chemotherapy induced anemia Discharge Disposition: Home or Self Care 02/09/2025 9:00 AM EDT - 02/09/2025 11:59 PM EDT Hospital Encounter [place] [address] Malignant neoplasm of overlapping sites of left breast in female, estrogen receptor positive (HCC) (Primary Dx) Discharge Disposition: Home or Self Care 02/09/2025 8:30 AM EDT - 02/09/2025 8:59 AM EDT Hospital Encounter [facility] [place] [address] Ana Rosa Del Angel APRN Antineoplastic chemotherapy induced anemia (Primary Dx) Discharge Disposition: Home or Self Care 02/09/2025 8:15 AM EDT - 02/09/2025 8:29 AM EDT Hospital Encounter [place] [address] Malignant neoplasm of overlapping sites of left breast in female, estrogen receptor positive (HCC) (Primary Dx) Discharge Disposition: Home or Self Care 02/09/2025 Refill [facility] [place] [address] Ana Rosa Del Angel APRN Medication Refill 02/09/2025 Nutrition [facility] [place] [address],LD 02/07/2025 Refill [facility] [place] [address] Ana Rosa Del Angel APRN Medication Refill 02/07/2025 Telephone [facility] [place], [place] [id number] Vane Hollingsworth MD Symptom Call 02/03/2025 Orders Only [facility] [place] [place] [address] Sosa Ernst APRN Malignant neoplasm of overlapping sites of left breast in female, estrogen receptor positive (HCC) (Primary Dx) 02/03/2025 Nutrition [facility] [place] [address],LD 02/02/2025 1:30 PM EDT - 02/02/2025 11:59 PM EDT [facility] [place], [place] [id number] Malignant neoplasm of overlapping sites of left breast in female, estrogen receptor positive (HCC) (Primary Dx) Discharge Disposition: Home or Self Care 02/01/2025 9:08 AM EDT - 02/01/2025 11:59 PM EDT Hospital Encounter [facility] [place] [address] Malignant neoplasm of overlapping sites of left breast in female, estrogen receptor positive (HCC) (Primary Dx) Discharge Disposition: Home or Self Care 02/01/2025 8:26 AM EDT - 02/01/2025 9:07 AM EDT Hospital Encounter [facility] [place] [address] Ana Rosa Del Angel, MARTÍN Malignant neoplasm of overlapping sites of left breast in female, estrogen receptor positive (HCC) (Primary Dx); Encounter for antineoplastic chemotherapy; Other insomnia Discharge Disposition: Home or Self Care 02/01/2025 8:00 AM EDT - 02/01/2025 8:25 AM EDT Hospital Encounter [place] [address] Malignant neoplasm of overlapping sites of left breast in female, estrogen receptor positive (HCC) (Primary Dx) Discharge Disposition: Home or Self Care 02/01/2025 Social Work [facility] Cancer [facility] [place] [address] Teresa Parrish, [facility]/19/2025 Social Work [facility] Cancer [facility] [place] [address] Sekou Berrios, BULB TESTER 01/14/2025 2:40 PM EDT - 01/14/2025 11:59 PM EDT Hospital Encounter [place] [address] Malignant neoplasm of overlapping sites of left breast in female, estrogen receptor positive (HCC) (Primary Dx); Low back pain, unspecified back pain laterality, unspecified chronicity, unspecified whether sciatica present Discharge Disposition: Home or Self Care 01/14/2025 11:30 AM EDT - 01/14/2025 2:39 PM EDT Hospital Encounter [facility] [place] [address] Vane Hollingsworth MD Malignant neoplasm of overlapping sites of left breast in female, estrogen receptor positive (HCC) (Primary Dx); Low back pain, unspecified back pain laterality, unspecified chronicity, unspecified whether sciatica present Discharge Disposition: Home or Self Care 01/14/2025 Social Work [facility] Cancer Care [facility] [place] [address] Teresa Parrish, SALVATORE 01/14/2025 Telephone [place] [address] [place] [id number] Khadijah Garza, Solvent Plant Operator New Patient 01/11/2025 Telephone [facility] [place] [address] Vane Hollingsworth MD Schedule Appointment (Consult) from Last 3 Months Immunizations Immunization Administration Dates Next Due DT 03/08/2011 Hepatitis A, Adult 03/04/2019 Influenza Seasonal Injectable PF 06/11/2024 Influenza Vaccine Quadrivalent PF 10/06/2023 Pneumococcal Polysaccharide 23 Valent 06/28/2021 Td (Adult), Absorbed 03/08/2011 Tdap 10/27/2023,06/28/2021 Surgical History Surgery Date Site/Laterality Comments TUBAL LIGATION BREAST SURGERY left MOUTH SURGERY had 3 teeth extracted Medical History Medical History Date Comments Knee pain left Paranoid schizophrenia, chronic condition (HCC) Bipolar affective (HCC) Insomnia Heroin use Heroin overdose (HCC) Polysubstance abuse (HCC) 11/01/2017 Social History Tobacco Use Types Packs/Day Years [...] on file Sexual Orientation Not on file Obstetrics History Para Term AB IAB SAB Ectopic Multiple Livin g Live Births 2 2 2 Date Outcome GA Total Labor Labor/2nd/3rd Weight Sex Type Anes PTL Mona A1 A5 Name Clin Para Para Last Filed Vital Signs Vital Sign Reading Time Taken Comments Blood Pressure 125/78 03/16/2025 12:31 PM EDT Pulse 72 03/16/2025 12:31 PM EDT Temperature 37 C (98.6 F) 03/16/2025 8:32 AM EDT Respiratory Rate 16 02/22/2025 1:18 PM EDT Oxygen Saturation 100% 03/16/2025 8:32 AM EDT Inhaled Oxygen Concentration - - Weight 81.4 kg (179 lb 8 oz) 03/16/2025 8:32 AM EDT Height 167.6 cm (5' 6 ) 03/16/2025 8:32 AM EDT Body Mass Index 28.97 03/16/2025 8:32 AM EDT Plan of Treatment Upcoming Encounters Date Type Department Care Team (Late st Contact Info) Description 03/17/2025 1:00 PM EDT Appointment [facility] [place] [address] 04/15/2025 8:45 AM EDT Appointment [facility] [place], [place] [id number] 04/15/2025 9:15 AM EDT [facility]ointment [facility] [place] [address] Vane Hollingsworth MD [address] [place] [id number] Health Maintenance Due Date Last Done Comments Annual Wellness Exam 01/29/1987 Hepatitis B Vaccine (1 of 3 - 19+ 3-dose series) 01/29/2003 Cervical Cancer Screening 01/29/2005 Pap Smear 01/29/2005 HPV/Pap Cotest 01/29/2014 Pneumococcal Vaccine 0-49 (2 of 2 - PCV) 06/28/2022 06/28/2021 COVID-19 Vaccine (2 - Pfizer risk series) 10/27/2023 10/06/2023 Influenza Vaccine (#1) 2025 06/11/2024, 2023 Breast Cancer Screening 06/18/2026 06/18/20 24, 06/18/2024, 06/14/2024 DTaP/TDaP/Td (4 - Td or Tdap) 10/27/2033 10/27/2023, 06/28/2021, 03/08/2011, Additional history exists Meningococcal B Vaccine Aged Out No l onger eligible based on patient's age to complete this topic Procedures Procedure Name Priority Date/Time Associated Diagnosis Comments COMPREHENSIVE METABOLIC PANEL STAT 03/16/2025 8:20 AM EDT Malignant neoplasm of overlapping sites of left breast in female, estrogen receptor positive (HCC) CBC WITH DIFF STAT 03/16/2025 8:20 AM EDT Malignant neoplasm of overlapping sites of left breast in female, estrogen receptor positive (HCC) COMPREHENSIVE METABOLIC PANEL STAT 02/21/2025 8:24 AM EDT Malignant neoplasm of overlapping sites of left breast in female, estrogen receptor positive (HCC) CBC WITH DIFF STAT 02/21/2025 8:24 AM EDT Malignant neoplasm of overlapping sites of left breast in female, estrogen receptor positive (HCC) RETICULOCYTE PANEL DIAGNOSTIC Routine 02/14/2025 11:01 AM EDT Antineoplastic chemotherapy induced anemia FERRITIN Routine 02/14/2025 11:01 AM EDT Antineoplastic chemotherapy induced anemia IRON+TIBC Routine 02/14/2025 11:01 AM EDT Antineoplastic chemotherapy induced anemia CBC WITH DIFF Routine 02/14/2025 11:01 AM EDT Antineoplastic chemotherapy induced anemia MAGNESIUM LEVEL STAT 02/09/2025 8:45 AM EDT Malignant neoplasm of overlapping sites of left breast in female, estrogen receptor positive (HCC) COMPREHENSIVE METABOLIC PANEL STAT 02/09/2025 8:45 AM EDT Malignant neoplasm of overlapping sites of left breast in female, estrogen receptor positive (HCC) CBC WITH DIFF STAT 02/09/2025 8:45 AM EDT Malignant neoplasm of overlapping sites of left breast in female, estrogen receptor positive (HCC) COMPREHENSIVE METABOLIC PANEL STAT 02/01/2025 8:24 AM EDT Malignant neoplasm of overlapping sites of left breast in female, estrogen receptor positive (HCC) CBC WITH DIFF STAT 02/01/2025 8:24 AM EDT Malignant neoplasm of overlapping sites of left breast in female, estrogen receptor positive (HCC) COMPREHENSIVE METABOLIC PANEL Routine 01/14/2025 2:59 PM EDT Malignant neoplasm of overlapping sites of left breast in female, estrogen receptor positive (HCC) Low back pain, unspecified back pain laterality, unspecified chronicity, unspecified whether sciatica present CBC WITH DIFF Routine 01/14/2025 2:59 PM EDT Malignant neoplasm of overlapping sites of left breast in female, estrogen receptor positive (HCC) Low back pain, unspecified back pain laterality, unspecified chronicity, unspecified whether sciatica present from Last 3 Months Results * (ABNORMAL) CBC WITH DIFF (03/16/2025 8:20 AM EDT) Only the most recent of6 resultswithin the time period is included. WBC 10.6(H) 3.7 - 10.3 x10(3)/mc L 03/16/2025 8:27 AM EDT [facility] RBC 2.96(L) 3.90 - 5.20 x10(6)/mc L 03/16/2025 8:27 AM EDT [facility] Hgb 9.3(L) 11.2 - 15.7 g/dL 03/16/2025 8:27 AM EDT [facility] Hct 28.6(L) 34.0 - 45.0 % 03/16/2025 8:27 AM EDT [facility] MCV 96.6 80.0 - 100.0 fL 03/16/2025 8:27 AM EDT [facility] MCH 31.4 26.0 - 34.0 pg 03/16/2025 8:27 AM EDT [facility] MCHC 32.5 30.7 - 35.5 g/dL 03/16/2025 8:27 AM EDT [facility] RDW 16.8(H) <=14.9 % 03/16/2025 8:27 AM EDT [facility] Platelet 300 155 - 369 x10(3)/mc L 03/16/2025 8:27 AM EDT [facility] MPV 9.2 8.8 - 12.5 fL 03/16/2025 8:27 AM EDT [facility] Neut # Prelim 7.4(H) 1.6 - 6.1 x10(3)/mc L 03/16/2025 8:27 AM EDT [facility] Comment:Preliminary automate d absolute neutrophil count. Value may change if manual differential is indicated. Neut Percent 69.5 % 03/16/2025 8:27 AM T [facility] Comment:Neutrophils equals s egs plus bands Imm Gran% 0.2 % 03/16/2025 8:27 AM T [facility] Comment:Automated count of m etamyelocytes, myelocytes and promyelocytes. Lymph Percent 14.1 % 03/16/2025 8:27 AM EDT [facility] [place] Percent 15.6 % 03/16/2025 8:27 AM EDT [facility] Eos Percent 0.2 % 03/16/2025 8:27 AM EDT [facility] Baso Percent 0.4 % 03/16/2025 8:27 AM EDT [facility] Neut # 7.4(H) 1.6 - 6.1 x10(3)/mc L 03/16/2025 8:27 AM EDT [facility] Comment:Neutrophils equals s egs plus bands IMMGRAN# 0.0 0.0 - 0.1 x10(3)/mc L 03/16/2025 8:27 AM T [facility] Comment:Automated count of m etamyelocytes, myelocytes and promyelocytes. An absolute IG <0.1 is reported as 0.0. Lymph # 1.5 1.2 - 3.9 x10(3)/mc L 03/16/2025 8:27 AM EDT [facility] [place] # 1.7(H) 0.3 - 0.9 x10(3)/mc L 03/16/2025 8:27 AM EDT [facility] Eos# 0.0 0.0 - 0.5 x10(3)/mc L 03/16/2025 8:27 AM EDT [facility] Baso # 0.0 0.0 - 0.1 x10(3)/mc L 03/16/2025 8:27 AM EDT [facility] Blood VENOUS STRUCTURE / Unknown Medicare Port / Unknown 03/16/2025 8:20 AM EDT 03/16/2025 8:20 AM EDT us Vane Hollingsworth MD HEMATOLOGY ORDERABLE S Final Result [place] [id number] * (ABNORMAL) COMPREHENSIVE METABOLIC PANEL (03/16/2025 8:20 AM EDT) Only the most recent of5 resultswithin the time period is included. Sodium 144 136 - 145 mmol/L 03/16/2025 8:44 AM EDT [facility] Potassium 3.6 3.5 - 5.0 mmol/L 03/16/2025 8:44 AM EDT [facility] Chloride 109(H) 98 - 107 mmol/L 03/16/2025 8:44 AM EDT [facility] Total CO2 23 22 - 29 mmol/L 03/16/2025 8:44 AM EDT [facility] Anion Gap 12 7 - 16 mmol/L 03/16/2025 8:44 AM EDT [facility] Calcium 9.5 8.6 - 10.4 mg/dL 03/16/2025 8:44 AM EDT [facility] Glucose Lvl 83 70 - 99 mg/dL 03/16/2025 8:44 AM EDT [facility] BUN 20 6 - 20 mg/dL 03/16/2025 8:44 AM EDT [facility] Creatinine 0.73 0.51 - 1.30 mg/dL 03/16/2025 8:44 AM EDT [facility] Albumin 3.9 3.5 - 5.2 gm/dL 03/16/2025 8:44 AM EDT [facility] Total Protein 6.3(L) 6.4 - 8.3 gm/dL 03/16/2025 8:44 AM EDT [facility] Bili Total 0.2 0.2 - 1.3 mg/dL 03/16/2025 8:44 AM EDT [facility] ALT 12 <=41 U/L 03/16/2025 8:44 AM EDT [facility] AST 16 <=40 U/L 03/16/2025 8:44 AM EDT [facility] Alk Phos 81 36 - 123 U/L 03/16/2025 8:44 AM EDT [facility] eGFR (CKD-EPIcr 2020) 105 >=60 mL/min/1.7 3 m2 03/16/2025 8:44 AM EDT [facility] Comment:Estimated GFR was ca lculated using the CKD-EPIcr (2020) equation refit without race. The equation is recommended by the National Kidney Foundation - [place] [employer] of Nephrology Task Force. Blood VENOUS STRUCTURE / Unknown Medicare Port / Unknown 03/16/2025 8:20 AM EDT 03/16/2025 8:20 AM EDT us Vane Hollingsworth MD CHEMISTRY ORDERABLES Final Result [facility] [address] [place] [address] [phone] * (ABNORMAL) RETICULOCYTE PANEL DIAGNOSTIC (02/14/2025 11:01 AM EDT) Retic Cnt Auto 3.9(H) 0.9 - 2.5 % 02/14/2025 11:15 AM EDT [facility] [place] Retic # 135.5(H) 40.0 - 110.0 x10(3)/mcL 02/14/2025 11:15 AM EDT [facility], [place] Imm. Retic Fraction % 29.1(H) 3.1 - 17.6 % 02/14/2025 11:15 AM EDT [facility], [facility] Retic Hgb 35.1 28.0 - 38.0 pg 02/14/2025 11:15 AM EDT [facility] Blood VENOUS STRUCTURE / Unknown Port / Unknown 02/14/2025 11:01 AM EDT 02/14/2025 11:04 AM EDT Narrative [facility] - 02/14/2025 11:15 AM EDT [...] the youngest reticulocytes having the highest content. (1)Tokavtar, Y., et al. 2017. Int J Hematol 106:116-125. (2)Law J., et al. 2017. Nutrients 9:450. (3)Angella Echavarria., et al. 2014. Am J Clin Pathol 142:506-512. (4)Goodnojack, L., et al. 2010. Blood 116:1133-6746. Ana Rosa Del Angel SLEEVE BASTER HEMATOLOGY ORDERABLES Ernestine pinedo Result [facility] Original [facility] [address] , [address] [place] [phone] * IRON+TIBC (02/14/2025 11:01 AM EDT) Iron 63 30 - 160 mcg/dL 02/14/2025 12:02 PM EDT [facility] [employer], [facility] Transferrin 205 200 - 360 mg/dL 02/14/2025 12:02 PM EDT [facility], [facility] Transferrin Saturation 22 20 - 50 % 02/14/2025 12:02 PM EDT [facility] TIBC 287 250 - 400 mcg/dL 02/14/2025 12:02 PM EDT [facility] Blood VENOUS STRUCTURE / Unknown Port / Unknown 02/14/2025 11:01 AM EDT 02/14/2025 11:04 AM EDT Ana Rosa Shi'Onur SLEEVE BASTER CHEMISTRY ORDERABLES Final Result Performing Organization Address City/[facility]/ZIP Co de Phone Number [address] , [place] [address] * FERRITIN (02/14/2025 11:01 AM EDT) Ferritin 144 30 - 150 ng/mL 02/14/2025 12:02 PM EDT [facility] Comment:The lower threshold of 30 is [...] AM EDT 02/14/2025 11:04 AM EDT Narrative [facility] - 02/14/2025 12:02 PM EDT Ingestion of manda doses of biotin (>5 mg/day) taken within 8 hours of drawing blood sample can interfere with this immunoassay test. us Ana Rosa Del Angel SLEEVE BASTER CHEMISTRY ORDERABLES Final Result Performing Organization Address City/[facility]/ZIP Co de Phone Number [facility] [address] , [place] [address] * MAGNESIUM LEVEL (02/09/2025 8:45 AM EDT) Magnesium 2.1 1.6 - 2.4 mg/dL 02/09/2025 9:32 AM EDT [facility] Blood VENOUS STRUCTURE / Unknown Medicare Port / Unknown 02/09/2025 8:45 AM EDT 02/09/2025 8:46 AM EDT us Sosa E Klever CHON CHEMISTRY ORDERABLES Ernestine l Result [facility] [address] [place] [address] from Last 3 Months Insurance [employer] [place] [id number] [address] [employer] [place] [id number] [employer] [place] [address] MDR Advance Directives For more information, please contact: [phone] * Full Code (Latest Code Status on File) Date Activated Date Inactivated Comments 11/01/2017 4:31 PM 11/04/2017 6:30 PM Care Teams Hide Cleaner Relationship Specialty Start Date End Date Rodriguez [address] [place] [phone] PCP - General Clinic/Center - [facility] ([facility]) 12/03/16 Vane Hollingsworth MD [address] [place] [id number] Internal Medicine-Hematology and Oncology 02/21/25 Giovanna Joseph, RN Registered Nurse Infusion Therapy 03/16/25 03/16/25
--- OUTSIDE RECORDS SUMMARY | 2025-03-16 19:17 | XMS_ITS | Clinical Summary ---
Author Organization [facility] Address [address] [place] [address] Care Team Providers Care Tool Machine Setup Operator Name Role Phone Avila Puri DO Primary Care Provider [phone] Allergies Active Allergy Reactions Criticality Noted Date Comments Hydrocodone Itching 07/04/2021 Ketorolac Tromethamine Itching,Rash Low 10/01/2024 Tramadol Itching,Rash Low 10/01/2024 Medications albuterol sulfate HFA 108 (90 Base) MCG/ACT inhaler Inhale 2 puffs into the lungs every 6 hours as needed 2 Active baclofen (LIORESAL) 10 MG tablet Take 1 tablet by mouth 3 times daily Active oxyCODONE-aceta minophen (PERCOCET) 10-325 MG per tablet Take 1 tablet by mouth 4 times daily as needed. Max Daily Amount: 4 tablets 4 Active tamoxifen (NOLVADEX) 20 MG tablet Take 1 tablet by mouth daily 4 Active buPROPion (WELLBUTRIN) 75 MG tablet Take 150 mg by mouth 2 times daily Active oxyBUTYnin (DITROPAN) 5 MG tabletIndicatio ns:Invasive lobular carcinoma of left breast in female (HCC),Hot flash due to medication Take 1 tablet by mouth 2 times daily 60 tablet 5 5 Active ondansetron (ZOFRAN) 4 MG tabletIndicatio ns:Invasive lobular carcinoma of left breast in female (HCC),Chemother apy management, encounter for Take 1 tablet by mouth every 6 hours as needed for Nausea or Vomiting 30 tablet 3 5 Active promethazine (PHENERGAN) 25 MG tabletIndicatio ns:Invasive lobular carcinoma of left breast in female (HCC),Chemother apy management, encounter for Take 0.5 tablets by mouth every 6 hours as needed for Nausea 30 tablet 3 5 Active dexAMETHasone (DECADRON) 4 MG tabletIndicatio ns:Invasive lobular carcinoma of left breast in female (HCC),Chemother apy management, encounter for Take 2 tablets twice a day x3 days with each treatment, taking the day before treatment, the day of treatment and the day after treatment every 3 weeks x4 cycles 48 tablet 5 Active lidocaine-prilo timo (EMLA) 2.5-2.5 % creamIndication s:Invasive lobular carcinoma of left breast in female (HCC),Chemother apy management, encounter for Apply topically as needed. 30 g 5 5 Active dexAMETHasone (DECADRON) 4 MG tabletIndicatio ns:Invasive lobular carcinoma of left breast in female (HCC),Nausea Take 2 pills twice a day the day before, the day of, and the day after chemotherapy 12 tablet 5 Active ondansetron (ZOFRAN) 4 MG tabletIndicatio ns:Invasive lobular carcinoma of left breast in female (HCC),Nausea Take 1 tablet by mouth every 8 hours as needed for Nausea or Vomiting 24 tablet 5 Active Active Problems Patient Care Coordination No te Formatting of this note migh t be different from the original. MELISSA HEBERT PA-C, H&P DUE PAIN AGREEMENT SIGNED ON ORT - Patient no showed new patient appt on 08/07/23. Problem Noted Date Diagnosed Date Prophylaxis for chemotherapy-induced neutropenia 12/02/2024 Invasive lobular carcinoma of left breast in fem elías 12/01/2024 Encounters Date Type Department Care Team Description 01/10/[address] [place] [address] Floresita Smith, head teller Refill 01/03/[address] [place] [address] Floresita Smith, head teller Refill 12/29/[address] [place] [address] Floresita Smith, RN Other 12/20/2024 2:20 PM CDT - 12/20/2024 11:59 PM CDT Hospital Encounter [address] [place] [address] Invasive lobular carcinoma of left breast in female (HCC) (Primary Dx) Discharge Disposition: Home or Self Care 12/20/[address] [place] [address] Telma Wallace MD Medication Refill 12/20/[address] [place] [address] Telma Wallace MD 12/20/[address] [place] [address] Telma Wallace MD 12/20/[address] [place], [place] [address] Telma Wallace MD Other 12/19/2024 9:41 PM CDT - 12/20/2024 12:01 AM CDT Emergency 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 [address] Telma Wallace MD Streptococcal pharyngitis (Primary Dx); Thrush of mouth and esophagus (HCC) 12/17/2024 2:25 PM CDT - 12/17/2024 11:59 PM CDT Hospital Encounter [address] [place] [id number] Invasive lobular carcinoma of left breast in female (HCC) (Primary Dx) Discharge Disposition: Home or Self Care 12/16/2024 2:23 PM CDT - 12/16/2024 11:59 PM CDT Hospital Encounter [address] [place] [address] Invasive lobular carcinoma of left breast in female (HCC) (Primary Dx) Discharge Disposition: Home or Self Care 12/15/2024 11:00 AM CDT Office Visit [address] [place] [address] Melinda Frye Cancer (HCC) (Primary Dx) 12/15/2024 8:28 AM CDT - 12/15/2024 11:59 PM CDT Hospital Encounter [address] [place] [address] Invasive lobular carcinoma of left breast in female (HCC) (Primary Dx) Discharge Disposition: Home or Self Care 12/15/2024 Orders Only [address] [place], [place] [address] Erick Saenz, machine bander and cellophaner helper lobular carcinoma of left breast in female (HCC) (Primary Dx) 12/15/2024 Orders Only [address] [place] [address] Telma Wallace MD 12/15/2024 Orders Only [address] [place] [address] Rubia Edmondson RN Invasive lobular carcinoma of left breast in female (HCC) (Primary Dx) from Last 3 Months Family History Relation Name Status Comments Brother 2 Alive Daughter Judith Other Father Alive Mother Sister 2 Alive Son Tian Alive Social History Tobacco Use Types Packs/Day Years Used Date Smoking Tobacco: Former Cigarettes S tarted: 1994 Smokeless Tobacco: Never Tobacco Cessation:Counseling Given: Not Answered Alcohol Use Standard Drinks/Week Comments Not Currently 0 (1 standard drink = 0.6 oz pur e alcohol) Interpersonal Safety Domain Source: IP Abuse Scr eening Answer Date Recorded Physical abuse Denies 10/01/2024 Verbal abuse Denies 10/01/2024 Emotional abuse Denies 10/01/2024 Financial abuse Denies 10/01/2024 Sexual abuse Denies 10/01/2024 Comments No Sex and Gender Information Value Date Recorded Sex Assigned at Female 12/12/2024 12:04 AM EDT Legal Sex Female 7:50 PM EDT Gender Identity Female 12/12/2024 12:04 AM EDT Sexual Orientation Not on file Last Filed Vital Signs Vital Sign Reading Time Taken Comments Blood Pressure 116/73 12/19/2024 9:49 PM CDT Pulse 105 12/19/2024 9:49 PM CDT Temperature 37.2 C (98.9 F) 12/19/2024 9:49 PM CDT Respiratory Rate 16 12/19/2024 9:49 PM CDT Oxygen Saturation 98% 12/19/2024 9:49 PM CDT Inhaled Oxygen Concentration - - Weight 81.6 kg (180 lb) 12/19/2024 9:49 PM CDT Height 167.6 cm (5' 5.98 ) 12/15/2024 8:45 AM CD T Body Mass Index 29.07 12/15/2024 8:45 AM CDT Plan of Treatment Health Maintenance Due Date Last Done Comments Depression Screen 1996 Varicella vaccine (1 of 2 - 13+ 2-dose series) 01/29/1997 HIV screen 01/29/1999 Hepatitis C screen 01/29/2002 Hepatitis B vaccine (1 of 3 - 19+ 3-dose series) 01/29/2003 Diabetes screen 01/29/2019 Lipids 2024 COVID-19 Vaccine (2 - 2023- season) 2024 10/06/2023 Flu vaccine (#1) 04/08/2025 06/11/2024, 10/06/2023 DTaP/Tdap/Td vaccine (4 - Td or Tdap) 10/27/2033 10/27/2023, 06/28/2021, 03/08/2011, Additional history exists Hepatitis A vaccine Aged Out 03/04/2019 No longe r eligible based on patient's age to complete this topic Pneumococcal 0-49 years Vaccine Aged Out 06/28/2021 No longer eligible based on patient's age to complete this topic Breast cancer screen Discontinued 06/14/2024 HPV vaccine Aged Out No longer eligi ble based on patient's age to complete this topic Hib vaccine Aged Out No longer eligi ble based on patient's age to complete this topic Meningococcal (ACWY) vaccine Aged Out No longer eligible based on patient's age to complete this topic Meningococcal B vaccine Aged Out No l onger eligible based on patient's age to complete this topic Polio vaccine Aged Out No longer elig ible based on patient's age to complete this topic Procedures Procedure Name Priority Date/Time Associated Diagnosis Comments COMPREHENSIVE METABOLIC PANEL STAT 12/15/2024 8:52 AM CDT CBC WITH AUTO DIFFERENTIAL STAT 12/15/2024 8:52 AM CDT from Last 3 Months Results * (ABNORMAL) CBC with Auto Differential (12/15/2024 8:52 AM CDT) WBC 11.06(H) 4.80 - 10.80 K/uL 12/15/2024 7:57 AM CDT [facility] RBC 4.30 4.20 - 5.40 M/uL 12/15/2024 7:57 AM CDT [facility] Hemoglobin 13.3 12.0 - 16.0 g/dL 12/15/2024 7:57 AM CDT [facility] Hematocrit 38.7 37.0 - 47.0 % 12/15/2024 7:57 AM CDT [facility] MCV 90.0 81.0 - 99.0 fL 12/15/2024 7:57 AM CDT [facility] MCH 30.9 27.0 - 31.0 pg 12/15/2024 7:57 AM CDT [facility] MCHC 34.4 33.0 - 37.0 g/dL 12/15/2024 7:57 AM CDT [facility] RDW 14.1 11.5 - 14.5 % 12/15/2024 7:57 AM CDT [facility] Platelets 289 130 - 400 K/uL 12/15/2024 7:57 AM CDT [facility] MPV 9.8 9.4 - 12.3 fL 12/15/2024 7:57 AM CDT [facility] Neutrophils % 94.5(H) 50.0 - 65.0 % 12/15/2024 7:57 AM T [facility] Lymphocytes % 3.8(L) 20.0 - 40.0 % 12/15/2024 7:57 AM CDT [facility] Monocytes % 1.2 1.0 - 10.0 % 12/15/2024 7:57 AM CDT [facility] Eosinophils % 0.0 0.0 - 5.0 % 12/15/2024 7:57 AM CDT [facility] Basophils % 0.1 0.0 - 1.0 % 12/15/2024 7:57 AM CDT [facility] Neutrophils Absolute 10.46(H) 1.50 - 7.50 K/uL 12/15/2024 7:57 AM CDT [facility] Lymphocytes Absolute 0.42(L) 1.10 - 4.50 K/uL 12/15/2024 7:57 AM CDT [facility] Monocytes Absolute 0.13 0.00 - 0.90 K/uL 12/15/2024 7:57 AM CDT [facility] Eosinophils Absolute 0.00 0.00 - 0.60 K/uL 12/15/2024 7:57 AM CDT [facility] Basophils Absolute 0.01 0.00 - 0.20 K/uL 12/15/2024 7:57 AM T [facility] 12/15/2024 8:52 AM CDT 12/15/2024 8:52 AM CDT us Telma Wallace MD HEMATOLOGY ORDERABLES Fin al Result [facility] [address] [phone] [phone] * (ABNORMAL) Comprehensive Metabolic Panel (12/15/2024 8:52 AM CDT) Sodium 141 136 - 145 mmol/L 12/15/2024 8:07 AM CDT [facility] Potassium 4.1 3.5 - 5.1 mmol/L 12/15/2024 8:07 AM CDT [facility] Chloride 106 98 - 107 mmol/L 12/15/2024 8:07 AM CDT [facility] CO2 22 22 - 29 mmol/L 12/15/2024 8:18 AM T [facility] Anion Gap 13 7 - 19 mmol/L 12/15/2024 8:18 AM T [facility] Glucose 183(H) 70 - 99 mg/dL 12/15/2024 8:17 AM T [facility] BUN 14 6 - 20 mg/dL 12/15/2024 8:18 AM T [facility] Creatinine 0.6 0.5 - 0.9 mg/dL 12/15/2024 8:18 AM T [facility] Est, Glom Filt Rate >90 >60 12/15/2024 8:18 AM T [facility] Comment: Pediatric calculator link https://www.kidney.org/professionals/kdoqi/gfr_calculatorped Effective Jun 10, 2022 These results are not intended for use in patients <18 years of age. eGFR results are calculated without a race factor using the 2020 CKD-EPI equation. Careful clinical correlation is recommended, particularly when comparing to results calculated using previous equations. The CKD-EPI equation is less accurate in patients with extremes of muscle mass, extra-renal metabolism of creatinine, excessive creatinine ingestion, or following therapy that affects renal tubular secretion. Calcium 9.3 8.6 - 10.0 mg/dL 12/15/2024 8:18 AM T [facility] Total Protein 7.1 6.4 - 8.3 g/dL 12/15/2024 8:18 AM CDT [facility] Albumin 4.2 3.5 - 5.2 g/dL 12/15/2024 8:17 AM CDT [facility] Total Bilirubin <0.2 0.0 - 1.2 mg/dL 12/15/2024 8:18 AM CDT [facility] Alkaline Phosphatase 84 35 - 104 U/L 12/15/2024 8:17 AM CDT [facility] ALT 10 5 - 33 U/L 12/15/2024 8:18 AM CDT [facility] AST 18 5 - 32 U/L 12/15/2024 8:18 AM CDT [facility] 12/15/2024 8:52 AM CDT 12/15/2024 8:52 AM CDT Telma Wallace MD CHEMISTRY ORDERABLES Ernestine pinedo Result Performing Organization Address City/State/[facility] Co de Phone Number [facility] [address] [phone] [phone] from Last 3 Months Additional Health Concerns Infection Onset Date Last Indicated Human Metapneumovirus 10/04/2021 10/04/2021 Insurance Care Teams Tool Machine Setup Operator Relationship Specialty Start Date End Date Avila Puri DO [address] [address] PCP - General Family Medicine 10/12/20
--- OUTSIDE RECORDS SUMMARY | 2025-03-16 19:17 | XMS_ITS ---
Author Organization [facility] Address [address] [place] [address] Care Team Providers Care Cardiology Rn Name Role Phone Avila Puri Erlinda LARSEN Primary Care Provider [phone] Active Problems Patient Care Coordination No te Formatting of this note migh t be different from the original. MELISSA HEBERT PA-C, H&P DUE PAIN AGREEMENT SIGNED ON ORT - Patient no showed new patient appt on 08/07/23. Problem Noted Date Diagnosed Date Prophylaxis for chemotherapy-induced neutropenia 12/02/2024 Invasive lobular carcinoma of left breast in fem elías 12/01/2024 Current Treatment and Therapy Plans OP Lobular breast cancer: COLD CAP + DOCEtaxel + cyclophosphamide + GCSF every 3 weeks x4 cycles* Plan Start Date:12/08/2024 Plan Provider:Telma Wallace MD Linked Problems Invasive lobular carcinoma o f left breast in female (HCC) Treatment Medications Current Day (Day 1 , Cycle 2 - Planned for 01/05/2025) Next Day (Day 2, Cycle 2 - Planned for 01/06/2025) acetaminophen (TYLENOL)cycloPHOSphamide (CYTOXAN) chemo IVPBdexAMETHasone (DECADRON)diphenhydrAMINE (BENADRYL)DOCEtaxel (TAXOTERE) chemo IVPBfamotidine (PEPCID) injectionondansetron (ZOFRAN)palonosetron (ALOXI) acetaminophen (TYLENOL) tablet 1,000 mgacetaminophen (TYLENOL) tablet 650 mgcycloPHOSphamide (CYTOXAN) 1,180 mg in sodium chloride 0.9 % 250 mL chemo IVPBdexAMETHasone (PF) (DECADRON) injection 10 mgdiphenhydrAMINE (BENADRYL) injection 25 mgdiphenhydrAMINE (BENADRYL) injection 50 mgDOCEtaxel (TAXOTERE) 147 mg in sodium chloride 0.9 % 250 mL chemo IVPBfamotidine (PEPCID) injection 20 mgondansetron (ZOFRAN) injection 8 mg No medications scheduled. Past Treatment and Therapy Plans No past plan information found.
[2025-03-16 19:23] LABS: Hematocrit 31.7 % (37.0-47.0); Hemoglobin 10.3 g/dL (12.2-16.2); Immature Granulocytes % 0.3 %; Mean Corpuscular HGB Conc 32.5 g/dL (31.8-35.4); Mean Corpuscular Hemoglobin 31.0 pg (27.0-31.2); Mean Corpuscular Volume 95.5 fl (81-99); Nucleated Red Blood Cells % 0 %; Platelet Count 361 K/mm3 (142-424); Red Blood Count 3.32 M/mm3 (4.20-5.40); Red Cell Distribution Width-SD 58.4 fL; White Blood Count 6.5 K/mm3 (4.8-10.8)
--- NOTE | 2025-03-16 19:24 | HMH.EDGENADL ---
Discharge Plan Disposition Patient Disposition: Home, Self-Care Condition: Good Referrals Follow up/Referrals: Provider,Referral, MD [Primary Care Provider, Medical] - See instructions Activity Restrictions/Add. Instructions Additional Instructions/Restrictions: Please return to the emergency department with any worsening signs or symptoms. Please follow-up with your providers as directed. Clinical Impressions Clinical Impression: History of bilateral breast cancer, Myalgia Stand Alone Forms Stand Alone Forms: Work/School Release Instructions Patient Instructions: DI for Chronic Pain -- Adult Print Language Print Language: Chilean Discharge ED Provider: Tan Mcguire General Adult HPI <FANNIE Patel - Last Filed: 03/16/25 20:17> General Chief complaint: PAIN Stated complaint: on chemo has pain everywhere Time Seen by Provider: 03/16/25 18:45 Mode of Arrival: Ambulatory Source of Information: Patient Description of Symptoms (Recalled from ER Triage Doc. by RN): pt presents to ED with c/o pain from chemo treatment today. pt reports that she receives chemo at [facility] for [facility]. pt reports that she receives a chemo treatment today approx 1 hour after pt was home she began having generalized pain all over body. pt typically goes to ED for fluids and pain medication. pt reports that she was unable to get to this time and come here. History of Present Illness HPI narrative: 40-year-old female presents to the emergency department with diffuse myalgias and pain all over , after her chemotherapy infusion treatment [facility]. Patient tells me that she typically gets diffuse myalgias, and nausea after chemotherapy infusions, and typically goes to [facility] emergency department , for IV fluids and IV Dilaudid . 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 Onset (ago): hour(s) Related Data Allergies Allergy/AdvReac Type Severity Reaction Status Date / Time hydrocodone Allergy Hives Verified 03/16/25 19:04 ketorolac (From Toradol) Allergy Hives Verified 03/16/25 19:04 tramadol Allergy Hives Verified 03/16/25 19:04 PFSH <FANNIE Patel - Last Filed: 03/16/25 20:17> [facility] Disclaimer: The information contained in this section may have been updated after the patient was seen, as this information can be updated by other users. Social History (Updated 03/16/25 @ 20:17 by FANNIE Patel) Smoking Status: Current every day smoker alcohol intake: never current occupational status: other Travel in the last 8 weeks?: None Have you lived/traveled outside US in past 30 days?: No Contact w/someone who lives/traveled outside US past 30 days?: No Exposure to someone with infectious disease in past 14 days?: No Do you have a fever (greater than 100.4 F or 38 C)?: No Have you tested positive for COVID-19?: No Exposed to someone with COVID-19 in past 14 days?: No Do you have a sore throat?: No Do you have a cough?: No Do you have any weakness?: No Do you have any diarrhea?: No Are you experiencing any unusual bleeding?: No Do you have any muscle aches/pain?: No Do you have any abdominal pain?: No Are you experiencing loss of taste or smell?: No <FANNIE Patel - Last Filed: 03/16/25 20:17> ROS Obtained: Yes All systems reviewed & no additional complaints except as documented Physical Exam <FANNIE Patel - Last Filed: 03/16/25 20:17> General General appearance: alert and in no apparent distress Head Head exam: atraumatic and normocephalic Eye Eye exam: Present PERRL and EOMI ENT ENT exam: Present mucous membranes moist Neck Neck exam: Present normal inspection Chest Chest inspection: Present normal inspection, symmetric chest wall rise and other (Evidence of double mastectomy, port present in the right chest wall) Respiratory Respiratory exam: Present normal lung sounds bilaterally; Absent respiratory distress, wheezes or stridor Cardiovascular Cardiovascular exam: Present regular rate and normal rhythm Abdominal Exam Abdominal exam: Present soft; Absent tenderness, guarding, rebound or rigidity Extremities Exam Extremities exam: Present normal inspection Neurological Exam Neurological exam: Present alert and oriented X3 Psychiatric Psychiatric exam: Present normal affect Skin Skin exam: Present warm and dry Medical Decision Making <FANNIE Patel - Last Filed: 03/16/25 20:17> Medical Records Medical records reviewed: Yes I reviewed the patient's medical records. Screening: Per USPSTF and CDC recommendations, given the prevalence of disease in our region, it is our hospital?s policy to screen for HIV and viral Hepatitis for all patients aged 18 and over and those with ongoing risk factors. Jerome Inquiry Pt receiving controlled substance: No Vital Signs: 03/16/25 18:50 03/16/25 20:03 03/16/25 20:30 Temperature 98.1 F Temperature Source Oral Pulse Rate 72 73 Pulse Rate [Left Radial] 87 Respiratory Rate 19 16 Blood Pressure 124/81 110/66 Blood Pressure [Right Arm] 124/72 Blood Pressure Mean 80 Blood Pressure Mean [Right Arm] 89 Blood Pressure Source [Right Arm] Automatic Cuff Blood Pressure Position Blood Pressure Position [Right Arm] Supine 02 Sat by Pulse Oximetry 98 99 98 Oxygen Delivery Method Room Air 03/16/25 20:48 Temperature 97.6 F Temperature Source Oral Pulse Rate 74 Pulse Rate [Left Radial] Respiratory Rate 16 Blood Pressure 110/66 Blood Pressure [Right Arm] Blood Pressure Mean Blood Pressure Mean [Right Arm] Blood Pressure Source [Right Arm] Blood Pressure Position Supine Blood Pressure Position [Right Arm] 02 Sat by Pulse Oximetry Oxygen Delivery Method Room Air Lab Data Lab results reviewed: Yes I reviewed the patient's lab results. Lab Results 03/16/25 19:00: WBC 6.5, RBC 3.32 L, Hgb 10.3 L, Hct 31.7 L, MCV 95.5, MCH 31.0, MCHC 32.5, RDW 16.9, Plt Count 361, MPV 9.9, Neut % (Auto) 93.4 H, Lymph % (Auto) 4.4 L, [facility] [place] [facility] % (Auto) 1.7, Eos % (Auto) 0.0 L, Baso % (Auto) 0.2, Neut # (Auto) 6.1, Lymph # (Auto) 0.3 L, [facility] # (Auto) 0.1, Eos # (Auto) 0.0, Baso # (Auto) 0.0, Total Counted 100, Neutrophils % (Manual) 89 H, Lymphocytes % (Manual) 9 L, Monocytes % (Manual) 2, Platelet Estimate Normal, RBC Morphology Normal, Sodium 141, Potassium 4.3, Chloride 106, Carbon Dioxide 25, Anion Gap 14.3, BUN 17, Creatinine 0.50 L, Estimated Creat Clear 190, Estimated GFR 136, Est GFR ( Amer) 165, Glucose 128 H, Calcium 8.9, Total Bilirubin 0.5, AST 37 H, ALT 20, Alkaline Phosphatase 71, Total Protein 7.2, Albumin 4.5, Globulin 2.7, Albumin/Globulin Ratio 1.7 03/16/25 19:00 03/16/25 19:00 Orders (Tests/Meds): ED MEDICATIONS Discontinued Medications Generic Name Dose Route Start Last Admin Trade Name Freq PRN Reason Stop Dose Admin Hydromorphone HCl 1 mg 03/16/25 19:18 03/16/25 19:30 Hydromorphone 2mg/Ml Syringe IV 03/16/25 19:19 1 mg ONCE ONE Administration Hydromorphone HCl 0.5 mg 03/16/25 20:17 03/16/25 20:33 Hydromorphone 2mg/Ml Syringe IV 03/16/25 20:18 0.5 mg ONCE ONE Administration Sodium Chloride 1,000 mls @ 999 mls/hr 03/16/25 19:18 03/16/25 19:30 Sod Chlor 0.9% 1000ml Bag IV 03/16/25 20:18 999 mls/hr .Q1H1M ONE Administration Ondansetron HCl 4 mg 03/16/25 19:26 03/16/25 19:33 Ondansetron 4mg/2ml Vial IV 03/16/25 19:27 4 mg ONCE ONE Administration ORDERS Category Date Time Status Complete Blood Count Auto Diff Stat Lab 03/16/25 19:00 Completed Comprehensive Metabolic Panel Stat Lab 03/16/25 19:00 Completed Medical Decision Narrative: 40-year-old female presents to the emergency department with diffuse myalgias and nausea, see HPI for detail past medical history, differential diagnosis to include but not limited to, malignancy pain, electrolyte disturbance, cardiac arrhythmia, malingering among others. I discussed this patient's case with the attending physician Will obtain basic laboratory studies, EKG, give the patient 1 L IV NS, 1 mg IV Dilaudid, patient does have quite an extensive history of ongoing cancer/malignancy, and is currently undergoing chemotherapy IV infusion treatment. Will treat the patient's pain and symptomatology here in the emergency department. CBC is notable for erythrocyte pi?a at 3.32, hemoglobin and hematocrit are 10.3/31.7 unsure of patient's baseline anemia. CMP is unremarkable I reviewed the patient's EKG at 1999, NSR at 61 bpm AL interval within normals, QT interval within normal limits there is no STEMI. Reexamination the patient at approximately 8 PM, patient is resting comfortably in the bed, patient states she feels better, would like to be discharged home to self-care, patient will finish IV fluid, and is requesting additional dose of IV pain medication, will give 0.5 mg IV Dilaudid prior to discharge. Patient was given strict ED return precaution, patient will follow-up with all of her providers as directed, but she will continue her medication regimen as currently prescribed. Patient and family voiced understanding and agreed with current plan/discharge plan. <Tan Mcguire MD - Last Filed: 03/16/25 22:10> Vital Signs: 03/16/25 18:50 03/16/25 20:03 03/16/25 20:30 Temperature 98.1 F Temperature Source Oral Pulse Rate 72 73 Pulse Rate [Left Radial] 87 Respiratory Rate 19 16 Blood Pressure 124/81 110/66 Blood Pressure [Right Arm] 124/72 Blood Pressure Mean 80 Blood Pressure Mean [Right Arm] 89 Blood Pressure Source [Right Arm] Automatic Cuff Blood Pressure Position Blood Pressure Position [Right Arm] Supine 02 Sat by Pulse Oximetry 98 99 98 Oxygen Delivery Method Room Air 03/16/25 20:48 Temperature 97.6 F Temperature Source Oral Pulse Rate 74 Pulse Rate [Left Radial] Respiratory Rate 16 Blood Pressure 110/66 Blood Pressure [Right Arm] Blood Pressure Mean Blood Pressure Mean [Right Arm] Blood Pressure Source [Right Arm] Blood Pressure Position Supine Blood Pressure Position [Right Arm] 02 Sat by Pulse Oximetry Oxygen Delivery Method Room Air Lab Data Lab Results 03/16/25 19:00: WBC 6.5, RBC 3.32 L, Hgb 10.3 L, Hct 31.7 L, MCV 95.5, MCH 31.0, MCHC 32.5, RDW 16.9, Plt Count 361, MPV 9.9, Neut % (Auto) 93.4 H, Lymph % (Auto) 4.4 L, [facility] % (Auto) 1.7, Eos % (Auto) 0.0 L, Baso % (Auto) 0.2, Neut # (Auto) 6.1, Lymph # (Auto) 0.3 L, [facility] # (Auto) 0.1, Eos # (Auto) 0.0, Baso # (Auto) 0.0, Total Counted 100, Neutrophils % (Manual) 89 H, Lymphocytes % (Manual) 9 L, Monocytes % (Manual) 2, Platelet Estimate Normal, RBC Morphology Normal, Sodium 141, Potassium 4.3, Chloride 106, Carbon Dioxide 25, Anion Gap 14.3, BUN 17, Creatinine 0.50 L, Estimated Creat Clear 190, Estimated GFR 136, Est GFR ( Amer) 165, Glucose 128 H, Calcium 8.9, Total Bilirubin 0.5, AST 37 H, ALT 20, Alkaline Phosphatase 71, Total Protein 7.2, Albumin 4.5, Globulin 2.7, Albumin/Globulin Ratio 1.7 Orders (Tests/Meds): ED MEDICATIONS Discontinued Medications Generic Name Dose Route Start Last Admin Trade Name Catrachoq PRN Reason Stop Dose Admin Hydromorphone HCl 1 mg 03/16/25 19:18 03/16/25 19:30 Hydromorphone 2mg/Ml Syringe IV 03/16/25 19:19 1 mg ONCE ONE Administration Hydromorphone HCl 0.5 mg 03/16/25 20:17 03/16/25 20:33 Hydromorphone 2mg/Ml Syringe IV 03/16/25 20:18 0.5 mg ONCE ONE Administration Sodium Chloride 1,000 mls @ 999 mls/hr 03/16/25 19:18 03/16/25 19:30 Sod Chlor 0.9% 1000ml Bag IV 03/16/25 20:18 999 mls/hr .Q1H1M ONE Administration Ondansetron HCl 4 mg 07/09/25 19:26 03/16/25 19:33 Ondansetron 4mg/2ml Vial IV 03/16/25 19:27 4 mg ONCE ONE Administration ORDERS Category Date Time Status Complete Blood Count Auto Diff Stat Lab 03/16/25 19:00 Completed Comprehensive Metabolic Panel Stat Lab 03/16/25 19:00 Completed Medical Decision Narrative: 40-year-old female presents to the emergency department with diffuse myalgias and nausea, see HPI for detail past medical history, differential diagnosis to include but not limited to, malignancy pain, electrolyte disturbance, cardiac arrhythmia, malingering among others. I discussed this patient's case with the attending physician Will obtain basic laboratory studies, EKG, give the patient 1 L IV NS, 1 mg IV Dilaudid, patient does have quite an extensive history of ongoing cancer/malignancy, and is currently undergoing chemotherapy IV infusion treatment. Will treat the patient's pain and symptomatology here in the emergency department. CBC is notable for erythrocyte pi?a at 3.32, hemoglobin and hematocrit are 10.3/31.7 unsure of patient's baseline anemia. CMP is unremarkable I reviewed the patient's EKG at 2000, NSR at 61 bpm AL interval within normals, QT interval within normal limits there is no STEMI. Reexamination the patient at approximately 8 PM, patient is resting comfortably in the bed, patient states she feels better, would like to be discharged home to self-care, patient will finish IV fluid, and is requesting additional dose of IV pain medication, will give 0.5 mg IV Dilaudid prior to discharge. Patient was given strict ED return precaution, patient will follow-up with all of her providers as directed, but she will continue her medication regimen as currently prescribed. Patient and family voiced understanding and agreed with current plan/discharge plan. I was consulted by the DOUGLAS, and we discussed the complexity of the problems being addressed. I approve the treatment and management plan for this patient's care in the emergency department, thus performing a substantive portion of the medical decision making. Tan Mcguire MD Critical Care <FANNIE Patel - Last Filed: 03/16/25 20:17> Critical Care Time Critical Care Time: No
[2025-03-16 19:27] LABS: Albumin Level 4.5 g/dl (3.5-5.0); Chloride 106 mmol/L (98-107); Potassium 4.3 mmoL/L (3.5-5.1); Sodium 141 mmol/L (136-145)
[2025-03-16 19:30] LABS: Alanine Aminotransferase 20 U/L (12-78); Albumin/Globulin Ratio 1.7 (1.1-1.8); Alkaline Phosphatase 71 U/L (38-126); Anion Gap 14.3 mEq/L (5-15); Aspartate Amino Transferase 37 U/L (14-36); Bilirubin,Total 0.5 mg/dl (0.2-1.3); Blood Urea Nitrogen 17 mg/dl (7-17); Calcium 8.9 mg/dl (8.4-10.2); Carbon Dioxide 25 mmol/L (22.0-30.0); Creatinine Clearance Estimated 190 mL/min (50-200); Creatinine,Serum 0.50 mg/dl (0.52-1.04); Estimated Glomerular Filt Rate 136 ml/min (>60); GFR (African American) 165 ML/MIN (>60); Globulin 2.7 g/dL (1.3-3.2); Glucose 128 mg/dl (74-100); Total Protein,Serum 7.2 g/dl (6.3-8.2)
[2025-03-16] MEDS: 0.9 % SODIUM CHLORIDE 1000ML 1,000 ML 999 ML IV (19:30)
[2025-03-16] MEDS: HYDROMORPHONE 2MG/ML SYRINGE 1 MG IV (19:30)
[2025-03-16] MEDS: ONDANSETRON 4MG/2ML VIAL 4 MG IV (19:33)
[2025-03-16 19:41] LABS: RBC Morphology Normal; Total Cells Counted 100
--- NOTE | 2025-03-16 19:59 | ECG_ITS ---
APPROVED REPORT Exam: Resting ECG HR:61 bpm ECG Measurements Heart Rate 61 AXES IL 145 P 48 QRSd 89 QRS 76 QT 397 T 73 QTc 400 Conclusion SINUS RHYTHM NORMAL ECG UNCONFIRMED REPORT Normal sinus rhythm. No ST elevation or depression. Electronically signed by : DIANA BRIDGES, 03/16/2025 22:46:18
[2025-03-16 20:03] VITALS: BP 124/81; PULSE 72; O2SAT 99
[2025-03-16 20:30] VITALS: BP 110/66; PULSE 73; RESP 16; O2SAT 98
[2025-03-16] MEDS: HYDROMORPHONE 2MG/ML SYRINGE 0.5 MG IV (20:33)
[2025-03-16 20:48] VITALS: BP 110/66; PULSE 74; RESP 16; TEMP 36.4; O2SAT 98
== END 2025-03-16 20:51 | disposition home or self-care (01) ==
PROVIDERS: Physician Assistant; Emergency Provider Student in an Organized Health Care Education/Training Program
DX: G89.3 Neoplasm related pain (acute) (chronic) (principal); Z85.3 Personal history of malignant neoplasm of breast
CPT/HCPCS: 80053; 85007; 85025; 85027; 93005; 96361; 96374; 96375; 96376; 99284; J1171; J2405; J7030

== ENCOUNTER 2025-03-21 03:37 | Emergency (ER) | payer MEDICAID, SELFPAY ==
--- OUTSIDE RECORDS SUMMARY | 2025-02-01 08:00 | XMS_ITS | Encounter Summary ---
Author Organization [place] [address] Care Team Providers Care Order Taker Name Role Phone Rodriguez Lindo Primary Care Provider [phone]- [phone] Poli Felix RN Unavailable Unavailable Encounter Details Date Type Department Care Team (Latest Contact Info) Description 02/01/2025 8:00 AM EDT - 02/01/2025 8:25 AM EDT Hospital Encounter [place] [address] Malignant neoplasm of overlapping sites of left [...] 02/01/2025 8:00 AM Laisha Bee MA * [place] Suicide Severity Rating Scale (Q shift for [...] AM EDT Appointment [facility] [place], [place] [id number] 04/15/2025 9:15 AM EDT [facility]ointment [facility] [place], [place] [id number] Vane Hollingsworth MD [address] [place] [address] [phone] documented as of this encounter Procedures Procedure [...] - 145 mmol/L 02/01/2025 8:42 AM EDT [facility] Potassium 4.3 3.5 - 5.0 mmol/L 02/01/2025 8:42 AM EDT [facility] Chloride 105 98 - 107 mmol/L 02/01/2025 8:42 AM EDT [facility] Total CO2 21(L) 22 - 29 mmol/L 02/01/2025 8:42 AM EDT [facility] Anion Gap 14 7 - 16 mmol/L 02/01/2025 8:42 AM EDT [facility] Calcium 10.0 8.6 - 10.4 mg/dL 02/01/2025 8:42 AM EDT [facility] Glucose Lvl 128(H) 70 - 99 mg/dL 02/01/2025 8:42 AM EDT [facility] BUN 15 6 - 20 mg/dL 02/01/2025 8:42 AM EDT [facility] Creatinine 0.71 0.51 - 1.30 mg/dL 02/01/2025 8:42 AM EDT [facility] Albumin 4.3 3.5 - 5.2 gm/dL 02/01/2025 8:42 AM EDT [facility] Total Protein 7.2 6.4 - 8.3 gm/dL 02/01/2025 8:42 AM EDT [facility] Bili Total <0.2(L) 0.2 - 1.3 mg/dL 02/01/2025 8:42 AM EDT [facility] ALT 9 <=41 U/L 02/01/2025 8:42 AM EDT [facility] AST 16 <=40 U/L 02/01/2025 8:42 AM EDT [facility] Alk Phos 85 36 - 123 U/L 02/01/2025 8:42 AM EDT [facility] eGFR (CKD-EPIcr 2020) 109 >=60 mL/min/1.7 3 m2 02/01/2025 8:42 AM EDT [facility] Comment:Estimated GFR was ca lculated using the CKD-EPIcr (2020) equation refit without race. The equation is recommended by the [employer] - [place] [employer]ph[employer] Task Force. Blood VENOUS STRUCTURE / Unknown Port / Unknown 02/01/2025 8:24 AM EDT 02/01/2025 8:25 AM EDT us Vane Hollingsworth MD CHEMISTRY ORDERABLES Final Result [facility] [address] [id number] * (ABNORMAL) CBC WITH DIFF (02/01/2025 8:24 AM EDT) WBC 9.0 3.7 - 10.3 x10(3)/mc L 02/01/2025 8:30 AM EDT [facility] RBC 3.82(L) 3.90 - 5.20 x10(6)/mc L 02/01/2025 8:30 AM EDT [facility] Hgb 11.8 11.2 - 15.7 g/dL 02/01/2025 8:30 AM EDT [facility] Hct 36.6 34.0 - 45.0 % 02/01/2025 8:30 AM EDT [facility] MCV 95.8 80.0 - 100.0 fL 02/01/2025 8:30 AM EDT [facility] MCH 30.9 26.0 - 34.0 pg 02/01/2025 8:30 AM EDT [facility] MCHC 32.2 30.7 - 35.5 g/dL 02/01/2025 8:30 AM EDT [facility] RDW 14.2 <=14.9 % 02/01/2025 8:30 AM EDT [facility] Platelet 409(H) 155 - 369 x10(3)/mc L 02/01/2025 8:30 AM T [facility] MPV 9.3 8.8 - 12.5 fL 02/01/2025 8:30 AM EDT [facility] Neut # Prelim 8.0(H) 1.6 - 6.1 x10(3)/mc L 02/01/2025 8:30 AM T [facility] Comment:Preliminary automate d absolute neutrophil count. Value may change if manual differential is indicated. Neut Percent 89.4 % 02/01/2025 8:30 AM T [facility] Comment:Neutrophils equals s egs plus bands Imm Gran% 0.1 % 02/01/2025 8:30 AM [facility] Comment:Automated count of m etamyelocytes, myelocytes and promyelocytes. Lymph Percent 6.7 % 02/01/2025 8:30 AM EDT [facility] [place] Percent 3.7 % 02/01/2025 8:30 AM EDT [facility] Eos Percent 0.0 % 02/01/2025 8:30 AM EDT [facility] Baso Percent 0.1 % 02/01/2025 8:30 AM EDT [facility] Neut # 8.0(H) 1.6 - 6.1 x10(3)/mc L 02/01/2025 8:30 AM EDT [facility] Comment:Neutrophils equals s egs plus bands IMMGRAN# 0.0 0.0 - 0.1 x10(3)/mc L 02/01/2025 8:30 AM EDT [facility] Comment:Automated count of m etamyelocytes, myelocytes and promyelocytes. An absolute IG <0.1 is reported as 0.0. Lymph # 0.6(L) 1.2 - 3.9 x10(3)/ L 02/01/2025 8:30 AM EDT [facility] [place] # 0.3 0.3 - 0.9 x10(3)/mc L 02/01/2025 8:30 AM EDT [facility] Eos# 0.0 0.0 - 0.5 x10(3)/ L 02/01/2025 8:30 AM EDT [facility] Baso # 0.0 0.0 - 0.1 x10(3)/ L 02/01/2025 8:30 AM EDT [facility] Blood VENOUS STRUCTURE / Unknown Port / Unknown 02/01/2025 8:24 AM EDT 02/01/2025 8:25 AM EDT us Vane Hollingsworth MD HEMATOLOGY ORDERABLE S Final Result [facility] [address] [phone] documented in this encounter Visit Diagnoses Diagnosis [...] 02/01/2025 documented in this encounter Care Teams Order Taker Relationship Specialty Start Date End Date [facility] [place] [address] [place] [id number] PCP - General Clinic/Center - [facility] ([facility] 12/03/16 Poli Felix, PAMELA Registered Nurse Infusion Therapy 02/01/25 02/08/25 documented as of this encounter
--- OUTSIDE RECORDS SUMMARY | 2025-02-01 08:26 | XMS_ITS | Encounter Summary ---
Author Organization [place] [address] Care Team Providers Care Tool Hardener Name Role Phone Rodriguez Lindo Primary Care Provider +1- [phone] Poli Felix RN Unavailable Unavailable Reason for Visit * Reason Comments Follow-up Breast Cancer Malignant neoplasm o f overlapping sites of left breast in female, estrogen receptor positive Chemotherapy Encounter Details Date Type Department Care Team (Latest Contact Info) Description 02/01/2025 8:26 AM EDT - 02/01/2025 9:07 AM EDT Hospital Encounter [facility] [place] [address] Ana Rosa Del Angel, [address] [place] [address] Malignant neoplasm of overlapping sites of left [...] 02/01/2025 8:00 AM Laisha Bee MA * [place] Suicide Severity Rating Scale (Q shift for [...] were not included. Patient: Anne Kearney CSN: [id number] Date of : 1985 Age: 40 y.o. Date of Service: 02/01/2025 HEMATOLOGY/ONCOLOGY NEW PATIENT OFFICE NOTE Primary Care Physician: Rodriguez Lindo Referring Physician: Ana Rosa Del Angel APRN Reason for Referral: Breast Cancer CURRENT TREATMENT: 12/15/2024 - TC X 4 (first cycle given in [place]) Outside oncology history: Diagnosis Invasive lobular carcinoma, 2 o'clock left breast, Jul 2024 Grade 2 ER 76%, VT 24%, HER-2 0/negative, Ki67 13% Stage IIB; pT2, pN1a Oncotype DX recurrence score: 17 [facility] BRCA 1/2 CancerNext genetic test: Positive pathogenic mutation detected: BRCA2 History Hepatitis C-treated Treatment Summary 07/29/24 Bilateral mastectomies with positive (09/13) left axillary SLNB by Dr Giovanna Tolentino/[facility] General Surgery 08/16/24 Initiated endocrine hormone therapy with Tamoxifen 20mg daily by Dr Oliverio Prescott/[facility] Medical Oncology 10/01/24 Prophylactic total hysterectomy with bilateral salpino-oophorectomy by Dr Ministerio Gamino/[facility] 10/11/24 - 12/01/24 Completed adjuvant radiation therapy with 5040cGy over 28 fractions to left breastby Dr Angelito Pierson/[facility] Radiation Oncology 10/18/24 Discontinue Tamoxifen. Initiate Letrozole 2.5mg daily by Dr Oliverio Prescott/[facility] Medical Oncology. 12/15/24 Taxotere, Cyclophosphamide + GCSF [...] in the pelvis. 06/18/24 Left diagnostic mammogram ([facility]): LEFT breast 4 mm oval, equal density [...] is at least 1.4 cm. ER 76%, VT 24%, HER-2 0/negative, Ki67 13% 06/29/24 MRI [...] (1/6) left axillary SLNB by Dr Giovanna Tolentino/[facility] General Surgery 07/29/24 Left breast, total mastectomy: [...] with Tamoxifen 20mg daily by Dr Oliverio Prescott/[facility] Medical Oncology 08/16/24 [facility] labs: CEA 3.75, CA 27-29 14; CBC-WBC 14.6; ANC 8.7; ALC 4.2; Hgb 12.1; MCV 88.9; platelets 361,000; CMP WNL; ferritin 19, iron 34, fe sat 7% 08/18/24 CT chest ([facility]): No evidence of metastatic disease in the chest. Postoperative change of bilateral mastectomy. 08/18/24 CT abd/pelvis ([facility]): No evidence of metastatic disease in the abdomen or pelvis. 08/18/24 Bone scan ([facility]): No evidence of osteoblastic metastatic disease by bone scan. 08/30/24 Oncotype DX recurrence score: 17 09/16/[address] Angelito Pierson/[facility] Radiation Oncology who recommended adjuvant radiation therapy with 5040 cGy over 28 fractions to left breast/left chest wall following recommendations[facility] regarding adjuvant chemotherapy. 09/20/[address] Oliverio Prescott/[facility] Medical Oncology who recommended referral to [facility] for prophylactic hysterectomy due to positive BRCA2 [...] + Ribociclib + Zometa. 09/27/24 Bone density ([facility]): Normal 10/01/24 Prophylactic total hysterectomy with bilateral salpino-oophorect[facility] 10/01/24 Uterus, cervix, bilateral tubes and ovaries, hysterectomy and bilateral salpingo-oophorectomy: Chronic cervicitis. Proliferative endometrium. Endometrial polyp. Adenomyosis. Completely transected right and left fallopian tubes and unremarkable fimbrial epithelial surface. Mesonephric cyst associated both left and right fallopian tubes. Corpora albicantia of right ovary.Corpora albicantia and 1 corpus hemorrhagicum of left ovary. Uterine weight of 141.7 g. 10/03/24 CT abd/pelvis ([facility]): Moderate pneumoperitoneum with scattered extraperitoneal air likely [...] fractions to left breast by Dr Angelito Pierson/[facility] Radiation Oncology 10/18/24 Follow-up evaluation with Dr Oliverio Prescott/[facility] Medical Oncology who recommended to discontinue Tamoxifen, initiate Letrozole 2.5mg daily and to anticipate adjuvant Taxotere 75mg/m2, Cyclophosphamide 600mg/m2 every 3 weeks x4 cycles 10/18/24 Discontinue Tamoxifen. Initiate Letrozole 2.5mg daily by Dr Oliverio Prescott/[facility] Medical Oncology 11/03/24 CT chest ([facility]): No acute abnormality in the chest. 11/03/24 US venous doppler upper right extremity (P): There is no evidence of deep venous thrombosis of the right upper extremity. There is partial nonocclusive superficial thrombus in the cephalic vein. 12/01/24 Completed adjuvant radiation therapy with 5040cGy over 28 fractions to left breast by Dr Angelito Pierson/[facility] Radiation Oncology 12/15/24 First dose of TC HISTORY OF PRESENT ILLNESS: CC: Chief Complaint Patient presents with Follow-up Breast Cancer Malignant neoplasm of overlapping sites of left breast in female, estrogen receptor positive Chemotherapy Patient is a 40 y.o. female who presents for breast cancer follow up and treatment. 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 02/01 she mentions she plans to stay with current pain specialist that is located in [place] as she does not want to get [...] Del Angel APRN Hematology and Medical Oncology [facility] documented in this encounter Plan of Treatment Upcoming Encounters Date Type Department Care Team (Late st Contact Info) Description 04/15/2025 8:45 AM EDT Appointment [facility] [place] [address] 04/15/2025 9:15 AM EDT Appointment [facility] [place] [address] Vane Hollingsworth MD [address] [place] [phone] documented as of this encounter Visit Diagnoses [...] documented as of this encounter Care Teams Tool Hardener Relationship Specialty Start Date End Date Rodriguez Lindo [address] [place] [address] PCP - General Clinic/Center - [facility] 12/03/16 Poli Felix, PAMELA Registered Nurse Infusion Therapy 02/01/25 02/08/25 documented as of this encounter
--- OUTSIDE RECORDS SUMMARY | 2025-02-01 09:08 | XMS_ITS | Encounter Summary ---
Author Organization [place] [address] Care Team Providers Care Biodiesel Product Manager Name Role Phone Rodriguez Lindo Primary Care Provider +1- [phone] Poli Felix RN Unavailable Unavailable Reason for Visit * Oncology Medication Prior Authorization (Routine) - Authorized Specialty Diagnoses / Procedures Referred By Contjo t Referred To Contact Diagnoses Malignant neoplasm of overlapping sites of left breast in female, estrogen receptor positive (HCC) Procedures ONCOLOGY MEDICATION AUTHORIZATION Vane Hollingsworth MD [address] [place] [address] Phone: tel: fax: Vane Hollingsworth MD [address] [place] [address] Phone: tel: fax: Referral ID Status Reason Start Date Expiration Date V isits Requested Visits Authorized [id number] Authorized 01/21/2025 01/21/2026 1 6 Encounter Details Date Type Department Care Team (Latest Contact Info) Description 02/01/2025 9:08 AM EDT - 02/01/2025 11:59 PM EDT Hospital [facility] [address] Malignant neoplasm of overlapping sites of left [...] Sign Reading Time Taken Comments Blood Pressure 108/57 02/01/2025 12:34 PM EDT Pulse 71 02/01/2025 12:34 PM EDT Temperature - - Respiratory Rate 18 02/01/2025 12:34 PM EDT Oxygen Saturation 97% 02/01/2025 12:34 PM EDT Inhaled Oxygen Concentration - - Weight - - Height - - Body Mass Index - - documented in this encounter Functional Status * PHQ-2 Total Score Answer Date of Assessment Author 0 02/01/2025 8:00 AM EDT Laisha Cantu MA * PHQ-9 Total Score Answer Date of Assessment Author 0 02/01/2025 8:00 AM DINORAHT Laisha Cantu MA * Question Answer Date [...] sylwia le energy 0 02/01/2025 8:00 AM DINORAHT Jane Cantu MA Poor appetite or overeating [...] Assessment Author No Risk 02/01/2025 8:00 AM Liasha Bee MA * [place] Suicide Severity Rating Scale (Q shift for [...] 4 01/14/2025 dexAMETHasone (DECADRON) 4 mg Oral TabletIndications:Ma lignant neoplasm of [...] needed for Nausea. 30 Tablet 2 01/14/2025 traZODone (DESYREL) 100 mg Oral TabletIndications:Ot her insomnia Take 1 Tablet by mouth nightly as needed for Sleep. at bedtime 30 Tablet 2 02/01/2025 documented as of this encounter Discharge Disposition Disposition Code Departure Means Destination Home or Self Care documented in this encounter Progress Notes * Chasity Garcia, [facility] - 02/01/2025 9:30 AM EDT Pharmacy Chemotherapy Pre-Verification Note originated on 02/01/2025 BACKGROUND INFORMATION Anne Kearney is a 40 y.o. female being treated for invasive lobular carcinoma The patient's primary oncologist is Vane Hollingsworth MD Allergies: Patient has no known allergies. Pharmacy has reviewed treatment plan for initiation of ONC DOCEtaxel + cyclophosphamide (TC) + N Q21D CLINICAL INFORMATION Cancer Stage: IIB Cancer staging reviewed Treatment History: S/ bilateral mastectomy, adjuvant radiation, now adjuvant chemo, [facility] Concurrent Radiation No, completed adjuvant rads at outside facility Pertinent Info: BRCA 2 ER/IL+, HER2 - Oncotype dx recurrence score: 17 IV Access Central access required? Has PORT Baseline Labs/Imaging ECHO/MUGA complete? Not required Labs ordered prior to chemotherapy reviewed. Pharmacogenomics No applicable pharmacogenomics for this regimen VTE Prophylaxis Khorana Score: 1 Khorana score reasons:Score Reasons: Pre-chemotherapy platelet count >= 350 x 10(3)/mcL Current VTE Prophylaxis:None noted TREATMENT REGIMEN Treatment medications and doses for 02/01/25, if no changes, include: Cycles 2-4 Docetaxel 75 mg/m2 on day 1 (12/15/24 Dose at outside facility 147 mg) Cyclophosphamide 600 mg/m2 on day 1 (12/15/24 Dose at outside facility 1180 mg) Cycle length: 21 days Oral Oncolytics: N/A Treatment plan reviewed. SUPPORTIVE CARE Hypersensitivity not indicated, did receive diphenhydramine 25 mg for 1st cycle at outside facility Antiemetics (moderate per NCCN) palonosetron 0.25 mg IV once, day 1, dexamethasone 12 mg IV/PO once, day 1, dexamethasone 8 mg PO once daily, days 2-3, and prochlorperazine 10 mg IV/PO Q6H PRN Pre/Post Hydration and Electrolytes None Prophylaxis None indicated Home Medications Released? N/A Febrile Neutropenia Risk Assessment - Regimen Risk: High Risk > 20% - Patient Risk Factors:prior to chemotherapy or radiation and recent surgery and/or open wounds - Growth factor indicated? Yes, Pegfilgrastim 6 mg SQ ordered. Received with first cycle at [facility] INTERACTIONS Potentially clinically important drug interactions based on available medication list on file: No significant drug-drug interactions identified with chemotherapy Thank you, Leobardo FerrariD, BCPS 2nd Chemotherapy Verification - Labs are within treatment parameters. - Doses are as expected. - Weight/BSA is within 10% of treatment plan weight/BSA. Will proceed with treatment as planned. Thank you, Chasity Garcia, VondaD, BCPS documented in this encounter Miscellaneous Notes * Patient Instructions - Poli Felix RN - 02/01/2025 9:30 AM EDT [facility] Discharge Instructions Thank you for entrusting the [facility] with your care. We hope you are pleased with your outpatient care and services. Because we are most concerned with your health, we suggest you carefully read the following discharge instructions: Your Discharge Instructions: MEDICATION INSTRUCTIONS: Treatment received today: Orders Placed This Encounter 0.9 % NaCl infusion sodium chloride 0.9% syringe 10 mL heparin flush 100 unit/mL injection 500 Units palonosetron (ALOXI) injection 0.25 mg dexAMETHasone (DECADRON) tablet 12 mg DOCEtaxeL (TAXOTERE) 140 mg in sodium chloride 0.9 % 250 mL chemo infusion cycloPHOSphamide (CYTOXAN) 1,100 mg in sodium chloride 0.9 % 116 mL chemo infusion Reviewed medications administered today and possible side effects Dizziness and sleepiness are possible side effects of pain medication. When taking pain medications, do not drink alcohol or drive. ACTIVITY INSTRUCTIONS: Rest today, increase activity as tolerated. DIET INSTRUCTIONS: Resume home diet FOLLOW-UP CARE: Call your doctor for a follow-up appointment: Notify physician for complications such as: Fever over 101*, Rash, Hives, difficulty breathing, unrelieved nausea or pain, redness or swelling in one limb greater than the other, constipation, diarrhea, bleeding Please contact your physician if you have problems related to your procedure or if symptoms persistor worsen. If physician is unavailable, go to the Emergency Room. If you develop any of the following : nausea, vomiting, fatigue, fever of 100.4 or higher, diarrhea, pain or any signs or symptoms of infection DON'T WAIT, PLEASE CALL US FIRST [phone]. [FOR URGENT ISSUES PLEASE DO NOT LEAVE A MESSAGE, FOLLOW PROMPTS TO THE DOCTOR KNITTING TEACHER] For Gynecology / Oncology call : [phone] Our hours of operation are Friday - Friday 8:00 AM - 4:30 PM. [facility] Scott Johnson [address] [address] [place] [address] [place] [address] Results for orders placed or performed during the hospital encounter of 02/01/25 CBC WITH DIFF Result Value Ref Range WBC 9.0 3.7 - 10.3 x10(3)/mcL RBC 3.82 (L) 3.90 - 5.20 x10(6)/mcL Hgb 11.8 11.2 - 15.7 g/dL Hct 36.6 34.0 - 45.0 % MCV 95.8 80.0 - 100.0 fL MCH 30.9 26.0 - 34.0 pg MCHC 32.2 30.7 - 35.5 g/dL RDW 14.2 <=14.9 % Platelet 409 (H) 155 - 369 x10(3)/mcL MPV 9.3 8.8 - 12.5 fL Neut # Prelim 8.0 (H) 1.6 - 6.1 x10(3)/mcL Neut Percent 89.4 % Imm Gran% 0.1 % Lymph Percent 6.7 % [place] Percent 3.7 % Eos Percent 0.0 % Baso Percent 0.1 % Neut # 8.0 (H) 1.6 - 6.1 x10(3)/mcL IMMGRAN# 0.0 0.0 - 0.1 x10(3)/mcL Lymph # 0.6 (L) 1.2 - 3.9 x10(3)/mcL [place] # 0.3 0.3 - 0.9 x10(3)/mcL Eos# 0.0 0.0 - 0.5 x10(3)/mcL Baso # 0.0 0.0 - 0.1 x10(3)/mcL COMPREHENSIVE METABOLIC PANEL Result Value Ref Range Sodium 140 136 - 145 mmol/L Potassium 4.3 3.5 - 5.0 mmol/L Chloride 105 98 - 107 mmol/L Total CO2 21 (L) 22 - 29 mmol/L Anion Gap 14 7 - 16 mmol/L Calcium 10.0 8.6 - 10.4 mg/dL Glucose Lvl 128 (H) 70 - 99 mg/dL BUN 15 6 - 20 mg/dL Creatinine 0.71 0.51 - 1.30 mg/dL Albumin 4.3 3.5 - 5.2 gm/dL Total Protein 7.2 6.4 - 8.3 gm/dL Bili Total <0.2 (L) 0.2 - 1.3 mg/dL ALT 9 <=41 U/L AST 16 <=40 U/L Alk Phos 85 36 - 123 U/L eGFR (CKD-EPIcr 2020) 109 >=60 mL/min/1.73 m2 documented in this encounter Plan of Treatment Upcoming Encounters Date Type Department Care Team (Late st Contact Info) Description 04/15/2025 8:45 AM EDT Appointment [facility] [place] [address] 04/15/2025 9:15 AM EDT [facility]ment [facility] [place] [address] Vane Hollingsworth MD [address] [place] [address] documented as of this encounter Visit Diagnoses Diagnosis Malignant neoplasm of overlapping sites of left breast in female, estrogen receptor positive (HCC)- Primary documented in this encounter Administered Medications Inactive Administered Medications - up to 1 most recent administrations Medication Order MAR Action Action Date Dose Rate Site 0.9 % NaCl infusion Intravenous, at 30 mL/hr, CONTINUOUS, Starting on Fri02/01/25 at 0930, Until Fri02/02/25 at 0405, For straight line press setter during chemotherapy infusion., Dx: 1. Malignant neoplasm of overlapping sites of left breast in female, estrogen receptor positive (HCC)Indications:Malignant neoplasm of overlapping sites of left breast in female, estrogen receptor positive (HCC) New Bag 02/01/2025 9:26 AM EDT 30 mL/hr cycloPHOSphamide (CYTOXAN) 1,100 mg in sodium chloride 0.9 % 116 mL chemo infusion 1,100 mg (rounded from 1,158 mg = 600 mg/m2 1.93 m2 Treatment Plan BSA from Recorded weight), Intravenous, at 232 mL/hr, ONCE, 1 dose, On Fri02/01/25 at 1100, Follow Chemotherapy Precautions (Caution - Irritant), Dx: 1. Malignant neoplasm of overlapping sites of left breast in female, estrogen receptor positive (HCC)Indications:Malignant neoplasm of overlapping sites of left breast in female, estrogen receptor positive (HCC) IV Started 02/01/2025 11:49 AM EDT 1,100 mg 232 mL/hr dexAMETHasone (DECADRON) tablet 12 mg 12 mg, Oral, ONCE, 1 dose, On Fri02/01/25 at 0930, Dx: 1. Malignant neoplasm of overlapping sites of left breast in female, estrogen receptor positive (HCC)Indications:Malignant neoplasm of overlapping sites of left breast in female, estrogen receptor positive (HCC) Given 02/01/2025 9:56 AM EDT 12 mg DOCEtaxeL (TAXOTERE) 140 mg in sodium chloride 0.9 % 250 mL chemo infusion 140 mg (rounded from 144.75 mg = 75 mg/m2 1.93 m2 Treatment Plan BSA from Recorded weight), Intravenous, at 50-300 mL/hr, ONCE, 1 dose, On Fri02/01/25 at 1000, Follow Chemotherapy Precautions (Caution - Irritant) Vitals before and after infusion., Dx: 1. Malignant neoplasm of overlapping sites of left breast in female, estrogen receptor positive (HCC)Indications:Malignant neoplasm of overlapping sites of left breast in female, estrogen receptor positive (HCC) IV Started 02/01/2025 10:41 AM EDT 140 mg 282 mL/hr heparin flush 100 unit/mL injection 500 Units 500 Units, Intravenous, PRN, Starting on Fri02/01/25 at 0918, Until Fri02/02/25 at 0405, Line Care, For Venous Access Device care and maintenance., Dx: 1. Malignant neoplasm of overlapping sites of left breast in female, estrogen receptor positive (HCC)Indications:Malignant neoplasm of overlapping sites of left breast in female, estrogen receptor positive (HCC) Given 02/01/2025 12:31 PM EDT 500 Units palonosetron (ALOXI) injection 0.25 mg 0.25 mg, Intravenous, ONCE, 1 dose, On Fri02/01/25 at 0930, Dx: 1. Malignant neoplasm of overlapping sites of left breast in female, estrogen receptor positive (HCC)Indications:Malignant neoplasm of overlapping sites of left breast in female, estrogen receptor positive (HCC) Given 02/01/2025 9:56 AM EDT 0.25 mg sodium chloride 0.9% syringe 10 mL 10 mL, Intravenous, PRN, Starting on Fri02/01/25 at 0918, Until Fri02/02/25 at 0405, Line Care, For Venous Access Device care and maintenance., Dx: 1. Malignant neoplasm of overlapping sites of left breast in female, estrogen receptor positive (HCC)Indications:Malignant neoplasm of overlapping sites of left breast in female, estrogen receptor positive (HCC) Given 02/01/2025 12:31 PM EDT 10 mL documented in this encounter Care Teams Biodiesel Product Manager Relationship Specialty Start Date End Date [facility] [address] [phone] PCP - General Clinic/Center - [facility] ([facility]) 12/03/16 Poli Felix, PAMELA Registered Nurse Infusion Therapy 02/01/25 02/08/25 documented as of this encounter
--- OUTSIDE RECORDS SUMMARY | 2025-02-02 13:30 | XMS_ITS | Encounter Summary ---
Author Organization [place] [address] Care Team Providers Care Vessel Specialist Name Role Phone Rodriguez Lindo Primary Care Provider +1- [phone] Poli Felix RN Unavailable Unavailable Aydee Westbrook RN Unavailable Unavailable Reason for Referral * Consultation (Routine) - Authorization Not Needed Specialty Diagnoses / Procedures Referred By Contac t Referred To Contact Oncology Diagnoses Malignant neoplasm of overlapping sites of left breast in female, estrogen receptor positive (HCC) Procedures CANCER CARE NUTRITION COMMUNICATION Vane Hollingsworth MD [address] [place] [address] Phone: tel: fax: [facility] [place] [address] Phone: tel: Referral ID Status Reason Start Date Expiration Date Visits Requested Visits Authorized [id number] Authorization Not Needed 02/02/2025 02/02/2026 1 1 Reason for Visit * Oncology Medication Prior Authorization (Routine) - Authorized Specialty Diagnoses / Procedures Referred By Contjo t Referred To Contact Diagnoses Malignant neoplasm of overlapping sites of left breast in female, estrogen receptor positive (HCC) Procedures ONCOLOGY MEDICATION AUTHORIZATION Vane Hollingsworth MD 1 [place] [address] Phone: tel: fax: Vane Hollingsworth MD [address] [place] [address] Phone: tel: fax: Referral ID Status Reason Start Date Expiration Date V isits Requested Visits Authorized [id number] Authorized 01/21/2025 01/21/2026 1 6 Encounter Details Date Type Department Care Team (Latest Contact Info) Description 02/02/2025 1:30 PM EDT - 02/02/2025 11:59 PM EDT Hospital Encounter [facility] [place] [address] Malignant neoplasm of overlapping sites of left [...] encounter Miscellaneous Notes * Patient Instructions - Adyee Westbrook RN - 02/02/2025 1:30 PM EDT [facility] Discharge Instructions Thank you for entrusting the [facility] with your care. We hope you [...] infection DON'T WAIT, PLEASE CALL US FIRST [phone]. [FOR URGENT ISSUES PLEASE DO NOT LEAVE A MESSAGE, FOLLOW PROMPTS TO THE DOCTOR ACCOUNT SUPPORT SPECIALIST] For Gynecology / Oncology call : [phone] Our hours of operation are Friday - Friday 8:00 AM - 4:30 PM. [facility] [id number] [place], [place] [id number] [place] [address] [phone] [address] No results found for any visits on 02/02/25. documented in this encounter Plan of Treatment Upcoming Encounters Date Type Department Care Team (Late st Contact Info) Description 04/15/2025 8:45 AM EDT Appointment [facility] [place], [place] [id number] 04/15/2025 9:15 AM EDT Appointment [facility] [place], [place] [id number] Vane Hollingsworth MD [address] [place] [address] documented as of this encounter Visit Diagnoses [...] 02/02 documented in this encounter Care Teams Vessel Specialist Relationship Specialty Start Date End Date [facility] [address] [place] [address] PCP - General Clinic/Center - [facility] ([facility]) 12/03/16 Poli Felix, PAMELA Registered Nurse Infusion Therapy 02/01/25 02/08/25 Aydee Westbrook RN Registered Nurse Infusion Therapy 02/02/25 02/02/25 documented as of this encounter
--- OUTSIDE RECORDS SUMMARY | 2025-02-07 16:00 | XMS_ITS | Encounter Summary ---
Demographics Address [address] [phone] Mobile Phone Email Address Preferred Language en Marital Status Hindu Affiliation Unknown Race White Ethnic Group Not or Lati no Author Organization Healthcare Address [address] [place] [address] Care Team Providers Care Dramatic Reader Name Role Phone Pcp, No Primary Care Provider Unavailabl e Reason for Referral * Consultation (Routine) - Canceled Specialty Diagnoses / Procedures Referred By Contac t Referred To Contact Blood and Marrow Transplant Diagnoses Cancer associated pain Donnell Cisneros DO [address] [place] [address] Phone: tel: fax: [facility] H[facility]ology/BMT [facility] Cellular Therapy [facility] [address] [place] [address] [place] [address] Phone: tel: fax: Referral ID Status Reason Start Date Expiration Date V isits Requested Visits Authorized [id number] Canceled 02/07/2025 08/09/2026 1 1 Reason for Visit * Reason Comments Pain Management Encounter Details Date Type Department Care Team ([facility] Contact Info) Description 02/07/2025 4:00 PM EDT - 02/07/2025 6:31 PM EDT Emergency [facility] Emergency Department [address] [place] [address] Donnell Cisneros DO [address] [place] [address] Cancer associated pain (Primary Dx) Discharge Disposition: Home or Self Care Social History Tobacco Use Types Packs/Day Years Used Date Smoking Tobacco: Never Assessed Comments Unknown Sex and Gender Information Value Date Recorded Sex Assigned at Not on file Legal Sex Female 6:18 PM EDT Gender Identity Not on file Sexual Orientation Not on file documented as of this encounter Last Filed Vital Signs Vital Sign Reading Time Taken Comments Blood Pressure 114/71 02/07/2025 6:24 PM EDT Pulse 81 02/07/2025 6:24 PM EDT Temperature 36.8 C (98.3 F) 02/07/2025 6:24 PM EDT Respiratory Rate 18 02/07/2025 4:02 PM EDT Oxygen Saturation 98% 02/07/2025 6:24 PM EDT Inhaled Oxygen Concentration - - Weight - - Height - - Body Mass Index - - documented in this encounter Functional Status * Calculated C-SSRS Risk Score (Lifetime/Recent) Answer Date of Assessment Author No Risk Indicated 02/07/2025 4:30 PM EDT Geri Mcguire RN * Question Answer Date of Assessment Author 1. Wish to be (Past 1 Month) No 02/07/2025 4:30 PM EDT Geri Barfield RN 2. Non-Specific Active Suici cyndie Thoughts (Past 1 Month) No 02/07/2025 4:30 PM EDT Jet Barfield RN 6. Suicidal Behavior (Lifetime) No 4:30 PM EDT Geri Barfield RN documented as of this encounter Discharge Instructions * Discharge Instructions* Donnell Cisneros DO - 02/07/2025 6:01 PM EDT You have been evaluated in the ED for your complaints. You may follow-up with your PCP next 3-5 business days as needed. If you experience any new or worsening symptoms please return to ED for further evaluation and management. documented in this encounter Medications at Time of Discharge acetaminophen (Tylenol) 500 MG tablet Take 2 tablets by mouth every 6 hours as needed (pain) for up to 10 days. 100 tablet 02/07/2025 02/17/2025 ibuprofen 800 MG tablet Take 1 tablet by mouth every 6 hours as needed for mild pain or moderate pain for up to 5 days. 20 tablet 2 02/07/2025 02/12/2025 documented as of this encounter Miscellaneous Notes * ED Provider Notes - Donnell Cisneros DO - 02/07/2025 3:53 PM EDT Images from the original note were not included. - HPI Chief Complaint Patient presents with Pain Management PIT Note Anne Kearney is a 40 y.o. female who presents to ED with joint pain. Pt c/o worsening joint pain, N/V, and disrupted sleep after chemo treatment 02/02. Pt states joint pain is normal after treatment but pain has significantly worsened since yesterday. Pt reports she is in the ED today for pain management. Patient denies fever, chills, cough, chest pain, shortness of breath, and diarrhea. Dr. Cisneros: 40-year-old female with past medical history significant for breast cancer currently on chemotherapy reporting to treatments left, presents today for evaluation concerning worsening joint pain that her baseline. She states that she usually sees pain management in [facility] howeverher heme/Onc physician recently wrote her oxycodone 10s. States that her refill was due on 01/28/2025 however she was not able to pick it up and is not able to to get back to [facility] to her pain management clinic for assessment for refills. She does have an appointment scheduled for a new pain management clinic here in [place] on 03/03/2025. Denies any recent injuries, nausea vomiting,fevers, chills, chest pain or shortness of breath. No further complaints at this time Patient History Past Medical History[1] Surgical History[2] Family History[3] Social History[4] Allergies: Allergies[5] Physical Exam ED Triage Vitals Temp Pulse Resp BP -- -- -- -- SpO2 Temp src Heart Rate Source Patient Position -- -- -- -- BP Location FiO2 (%) -- -- Physical Exam Vitals and nursing note reviewed. Constitutional: General: She is not in acute distress. Appearance: Normal appearance. She is well-developed. She is not ill-appearing, toxic-appearing or diaphoretic. HENT: Head: Normocephalic and atraumatic. Right Ear: External ear normal. Left Ear: External ear normal. Nose: Nose normal. No congestion or rhinorrhea. Mouth/Throat: Lips: Ida. Mouth: Mucous membranes are moist. Pharynx: Oropharynx is clear. Eyes: General: Lids are normal. Extraocular Movements: Extraocular movements intact. Conjunctiva/sclera: Conjunctivae normal. Pupils: Pupils are equal, round, and reactive to light. Neck: Thyroid: No thyromegaly. Vascular: No JVD. Trachea: Phonation normal. Cardiovascular: Rate and Rhythm: Normal rate and regular rhythm. Pulses: Normal pulses. Heart sounds: Normal heart sounds. No murmur heard. Pulmonary: Effort: Pulmonary effort is normal. No respiratory distress. Breath sounds: Normal breath sounds and air entry. Abdominal: General: Abdomen is flat. There is no distension. Palpations: Abdomen is soft. There is no mass. Tenderness: There is no abdominal tenderness. There is no guarding or rebound. Musculoskeletal: General: No swelling, tenderness, deformity or signs of injury. Normal range of motion. Cervical back: Normal range of motion and neck supple. No rigidity or tenderness. Right lower leg: No edema. Left lower leg: No edema. Skin: General: Skin is warm and dry. Capillary Refill: Capillary refill takes less than 2 seconds. Coloration: Skin is not jaundiced or pale. Neurological: General: No focal deficit present. Mental Status: She is alert and oriented to person, place, and time. Cranial Nerves: No cranial nerve deficit. Sensory: Sensation is intact. No sensory deficit. Motor: Motor function is intact. No weakness. Coordination: Coordination normal. Gait: Gait is intact. Psychiatric: Attention and Perception: Attention normal. Mood and Affect: Mood and affect normal. Speech: Speech normal. Behavior: Behavior normal. Thought Content: Thought content normal. Judgment: Judgment normal. No data recorded ED Course & MDM - Assessment: 40-year-old female with past medical history significant for breast cancer currently on chemotherapy reporting to treatments left, presents today for evaluation concerning worsening joint pain that her baseline. She states that she usually sees pain management in [facility] however her heme/Onc physician recently wrote her oxycodone 10s. States that her refill was due on 01/28/2025 however she was not able to pick it up and is not able to to get back to [facility] to her pain management clinic for assessment for refills. She does have an appointment scheduled for a new pain management clinic here in [place] on 03/03/2025. Denies any recent injuries, nausea vomiting, fevers, chills, chest pain or shortness of breath. No further complaints at this time Differential Diagnosis: Chronic pain, among others. In order to fully explore the differential diagnosis the following treatments and tests were ordered: ED Medication Administration from 02/07/2025 1553 to 02/09/2025 2252 Date/Time Order Dose Route Action 02/07/2025 1616 EDT lidocaine (Anecream) 4 % cream 1 Application 1 Application Topical Given 02/07/2025 1640 EDT HYDROmorphone (Dilaudid) injection 0.5 mg 0.5 mg Intravenous Not Given 02/07/2025 1709 EDT HYDROmorphone (Dilaudid) injection 1 mg 1 mg Intravenous Given 02/07/2025 1709 EDT ondansetron (Zofran) injection 4 mg 4 mg Intravenous Given 02/07/2025 1710 EDT lactated Ringer's infusion 1,000 mL 1,000 mL Intravenous New Bag 02/07/2025 1817 EDT lactated Ringer's infusion 1,000 mL 0 mL Intravenous Stopped 02/07/2025 1825 EDT acetaminophen (Tylenol) tablet 1,000 mg 1,000 mg Oral Given 02/07/2025 1825 EDT ibuprofen tablet 800 mg 800 mg Oral Given 02/07/2025 1825 EDT oxyCODONE (Roxicodone) immediate release tablet 10 mg 10 mg Oral Given 02/07/2025 1826 EDT heparin flush (porcine) 100 UNIT/ML injection 500 Units 500 Units IntracatheterGiven All Other Orders Ordered Status Ordering Provider 02/07/25 1741 Hepatitis C Virus (HCV) Quantitative PCR - ED Once Final result JOSE R MUNIZ 02/07/25 1600 Hepatitis C Antibody - ED Once Final result JOSE R MUNIZ 02/07/25 1600 ED Protocol - HIV 1/2 Antibody/Antigen Screen Once Final result JOSE R MUNIZ 02/07/25 1600 ED HIV 1/2 Antibody/Antigen Screen w/Reflex to HIV 1/2 Differentiation PROCEDURE ONCE Final result JOSE R MUNIZ 02/07/25 1600 CMP STAT Final result JOSE R MUNIZ 02/07/25 1600 CBC STAT Final result JOSE R MUNIZ 02/07/25 1800 Discharge Ambulatory referral to Adult Palliative Care Ordered DONNELL CISNEROS Clinical Impressions as of 02/09/25 4928 Cancer associated pain Social Determinates of Health Risks (including Economic Stability, Education and level of understanding, Healthcare access and quality and concerning social factors): None identified on this visit Ultimately, this patient was Was discharged Home (Discharge) The encounter diagnosis was Cancer associated pain. . Patient was counseled on the diagnoses. Discharge medications if any are listed below. Listed medications are thought be either curative for listed diagnoses or will help control ongoing symptoms. Patient is requested to follow up with Patient's Primary Care Provider in order to obtain routine follow-up. Instructions on follow up as well as precautions to return to the ER provided verbally by the EM provider, as well as written in patients discharge education packet. ED Prescriptions Medication Sig Dispense Start Date End Date Auth. Provider acetaminophen (Tylenol) 500 MG tablet Take 2 tablets by mouth every 6 hours as needed (pain) for upto 10 days. 100 tablet 02/07/2025 02/17/2025 Donnell Cisneros, ibuprofen 800 MG tablet (Status: Discontinued) Take 1 tablet by mouth every 6 hours as needed for mild pain or moderate pain for up to 5 days. 20 tablet 02/07/2025 02/07/2025 Donnell Cisneros DO ibuprofen 800 MG tablet Take 1 tablet by mouth every 6 hours as needed for mild pain or moderate pain for up to 5 days. 20 tablet 02/07/2025 02/12/2025 Donnell Cisneros DO PIT Date: 02/07/2025 Scribe Attestation: This note was dictated to me, Cody Maldonado, acting as a scribe for Dr. Jose R Muniz MD. Attending Attestation: The documentation was recorded by Cody Maldonado acting as scribe in my presence at the time of the encounter and accurately reflects the service I personally performed. Discharge Instructions You have been evaluated in the ED for your complaints. You may follow-up with your PCP next 3-5 business days as needed. If you experience any new or worsening symptoms please return to ED for further evaluation and management. Disposition Discharge AVS ([place] Snapshot) - Printed 02/07/2025 Follow-Ups: Follow up with [facility] Hematology/BMT and Cellular Therapy Program (Blood and Marrow Transplant) Discharge Orders Discharge Ambulatory referral to Adult Palliative Care Authorized - [1] No past medical history on file. [2] No past surgical history on file. [3] No family history on file. [4] [5] Not on File Donnell Cisneros DO 02/09/25 6739 * ED Triage Notes - Raysa Rivero RN - 02/07/2025 3:53 PM EDT Pt received chemo last week and states her chronic pain is worse than usual. documented in this encounter Plan of Treatment Scheduled Referrals Name Type Priority Associated Diagnoses Order Schedule Discharge Ambulatory referral to Adult Palliative Care Outpatient Referral Routine Cancer associated pain Expected: 02/07/2025 (Approximate), Expires: 08/11/2026 documented as of this encounter Procedures Procedure Name Priority Date/Time Associated Diagnosis Comments ED HIV 1/2 ANTIBODY/ANTIGEN SCREEN WITH REFLEX TO HIV I/II DIFFERENTIATION STAT 02/07/2025 5:00 PM EDT ED PROTOCOL HIV 1/2 ANTIBODY/ANTIGEN SCREEN W/REFLEX TO HIV 1/2 ANTIBODY DIFFERENTIATION STAT 02/07/2025 5:00 PM EDT HEPATITIS C VIRUS (HCV) QUANTITATIVE PCR - ED STAT 02/07/2025 5:00 PM EDT HEPATITIS C ANTIBODY - ED W/REFLEX TO HCV QUANT PCR STAT 02/07/2025 5:00 PM EDT CBC W/O DIFFERENTIAL STAT 02/07/2025 5:00 PM EDT COMPREHENSIVE METABOLIC PANEL, PLASMA STAT 02/07/2025 5:00 PM EDT documented in this encounter Results * Hepatitis C Virus (HCV) Quantitative PCR - ED (02/07/2025 5:00 PM EDT) Pathologist [facility] Hepatitis C Virus (HCV) Quantitative Interpretation Not Detected Not Detected. 02/08/2025 2:54 PM EDT [facility] Blood Venous blood specimen / Unknown Venipuncture / Unknown 02/07/2025 5:00 PM EDT 02/07/2025 5:10 PM EDT Narrative [facility] - 02/08/2025 2:54 PM EDT The Wilson M2000 HCV test is a Real Time in vitro nucleic acid amplification test for the quantitation of Hepatitis C Viral (HCV) RNA in human serum in HCV-infected individuals. It is intended for use as an aid in the management of HCV-infected individuals undergoing anti-viral therapy. The dynamic range for this test is log10 = 1.08 to 8.00 and/or 12 to 100,000,000 IU/mL. The limit of detection (LOD) for this assay is 12 IU/mL and the limit of quantitation (LOQ) is 12 IU/mL. This assay is FDA approved for clinical use. us Jose R Muniz MD LAB BLOOD ORDERABLES Final Resul t Performing Organization Address City/[facility] Co de Phone Number [facility] [address] [place] [address] * ED HIV 1/2 Antibody/Antigen Screen w/Reflex to HIV 1/2 Differentiation (02/07/2025 5:00 PM EDT) [facility] HIV 1 & 2 Antibody/Antigen Screen Non Reactive Non Reactive 02/07/2025 7:11 PM EDT [facility] Comment:Screening for HIV 1 & 2 antibodies, and P24 antigen is NONREACTIVE. No confirmatory testing is required. Blood Venous blood specimen / Unknown Venipuncture / Unknown 02/07/2025 5:00 PM EDT 02/07/2025 5:10 PM EDT us Jose R Muniz MD LAB BLOOD ORDERABLES Final Resul t Performing Organization Address City/[facility]/ZIP Co de Phone Number [facility] [address] [place] [address] * (ABNORMAL) Hepatitis C Antibody - ED (02/07/2025 5:00 PM EDT) Pathologist [facility] Hepatitis C Antibody Positive(A ) Negative 02/07/2025 6:33 PM EDT [facility] Blood Venous blood specimen / Unknown Venipuncture / Unknown 02/07/2025 5:00 PM EDT 02/07/2025 5:10 PM EDT us Jose R Muniz MD LAB BLOOD ORDERABLES Final Resul t [facility] [address] [place] [address] * (ABNORMAL) CBC (02/07/2025 5:00 PM EDT) Pathologist [facility] WBC Count 3.22(L) 3.70 - 10.30 10*3/uL LAB HEMATOLOGY METHOD 02/07/2025 5:29 PM EDT [facility] RBC Count 3.44(L) 3.90 - 5.20 10*6/uL LAB HEMATOLOGY METHOD 02/07/2025 5:29 PM EDT [facility] HGB 10.4(L) 11.2 - 15.7 g/dL LAB HEMATOLOGY METHOD 02/07/2025 5:29 PM EDT [facility] HCT 31.8(L) 34.0 - 45.0 % LAB HEMATOLOGY METHOD 02/07/2025 5:29 PM EDT [facility] Platelet Count 212 155 - 369 10*3/uL LAB HEMATOLOGY METHOD 02/07/2025 5:29 PM EDT [facility] MCV 92 79 - 98 fL LAB HEMATOLOGY METHOD 02/07/2025 5:29 PM EDT [facility] MCH 30.2 26.0 - 32.0 pg LAB HEMATOLOGY METHOD 02/07/2025 5:29 PM EDT [facility] MCHC 32.7 30.7 - 35.5 g/dL LAB HEMATOLOGY METHOD 02/07/2025 5:29 PM EDT [facility] RDW 13.7 11.5 - 14.5 % LAB HEMATOLOGY METHOD 02/07/2025 5:29 PM EDT [facility] MPV 10.4 8.8 - 12.5 fL LAB HEMATOLOGY METHOD 02/07/2025 5:29 PM EDT [facility] nRBC 1.2(H) <=0.0 per 100 WBCs LAB HEMATOLOGY METHOD 02/07/2025 5:29 PM EDT [facility] Blood Venous blood specimen / Unknown Venipuncture / Unknown 02/07/2025 5:00 PM EDT 02/07/2025 5:09 PM EDT us Jose R Muniz MD LAB BLOOD ORDERABLES Final Resul t [facility] [address] [place] [address] * (ABNORMAL) CMP (02/07/2025 5:00 PM EDT) Glucose, Plasma 78 74 - 99 mg/dL 02/07/2025 5:32 PM EDT [facility] BUN, Plasma 8 7 - 21 mg/dL 02/07/2025 5:32 PM EDT [facility] Creatinine, Plasma 0.65 0.60 - 1.10 mg/dL 02/07/2025 5:32 PM EDT [facility] BUN/Creatinine Ratio 12 02/07/2025 5:32 PM EDT [facility] Sodium, Plasma 134(L) 136 - 145 mmol/L 02/07/2025 5:32 PM EDT [facility] Potassium, Plasma 4.0 3.6 - 4.9 mmol/L 02/07/2025 5:32 PM EDT [facility] Chloride, Plasma 102 97 - 107 mmol/L 02/07/2025 5:32 PM EDT [facility] CO2, Plasma 24 22 - 29 mmol/L 02/07/2025 5:32 PM EDT [facility] Anion Gap 8 6 - 16 mmol/L 02/07/2025 5:32 PM EDT [facility] Total Calcium, Plasma 9.1 8.9 - 10.2 mg/dL 02/07/2025 5:32 PM EDT [facility] Total Protein 6.5 6.3 - 7.9 g/dL 02/07/2025 5:32 PM EDT [facility] Albumin, Plasma 4.0 3.5 - 5.2 g/dL 02/07/2025 5:32 PM EDT [facility] AST, Plasma 20 10 - 35 U/L 02/07/2025 5:32 PM EDT [facility] ALT, Plasma 22 10 - 35 U/L 02/07/2025 5:32 PM EDT [facility] Alkaline Phosphatase, Plasma 98 35 - 104 U/L 02/07/2025 5:32 PM EDT [facility] Total Bilirubin, Plasma 0.3 0.2 - 1.1 mg/dL 02/07/2025 5:32 PM EDT [facility] eGFRcr 113.6 mL/min/1.7 3m*2 02/07/2025 5:32 PM EDT [facility] Comment:Reported eGFRcr in m L/min/1.73m2 is based the CKD-EPI 2020 equation that does not use a race coefficient. Blood Venous blood specimen / Unknown Venipuncture / Unknown 02/07/2025 5:00 PM EDT 02/07/2025 5:09 PM EDT us Jose R Muniz MD LAB BLOOD ORDERABLES Final Resul t [facility] [address] [place] [address] documented in this encounter Visit Diagnoses Diagnosis Cancer associated pain- Primary Neoplasm related pain (acute) (chronic) documented in this encounter Administered Medications Inactive Administered Medications - up to 3 most recent administrations Medication Order MAR Action Action Date Dose Rate Site acetaminophen (Tylenol) tablet 1,000 mg 1,000 mg, Oral, Once, 1 dose, On Fri02/07/25 at 1805, Routine Given 02/07/2025 6:25 PM EDT 1,000 mg heparin flush (porcine) 100 UNIT/ML injection 500 Units 500 Units, Intracatheter, As needed, Starting on Fri02/07/25 at 1817, Until Fri02/07/25 at 2030, Routine, line care Given 02/07/2025 6:26 PM EDT 500 Units HYDROmorphone (Dilaudid) injection 1 mg 1 mg, Intravenous, Once, 1 dose, On Fri02/07/25 at 1635, Routine Given 02/07/2025 5:09 PM EDT 1 mg ibuprofen tablet 800 mg 800 mg, Oral, Once, 1 dose, On Fri02/07/25 at 1805, STAT Given 02/07/2025 6:25 PM EDT 800 mg lactated Ringer's infusion 1,000 mL 1,000 mL, Intravenous, Once, 1 dose, On Fri02/07/25 at 1605, STAT New Bag 02/07/2025 5:10 PM EDT 1,000 mL lidocaine (Anecream) 4 % cream 1 Application Topical, Once, 1 dose, On Fri02/07/25 at 1605, STAT Given 02/07/2025 4:16 PM EDT 1 Application ondansetron (Zofran) injection 4 mg 4 mg, Intravenous, Once, 1 dose, On Fri02/07/25 at 1605, STAT Given 02/07/2025 5:09 PM EDT 4 mg oxyCODONE (Roxicodone) immediate release tablet 10 mg 10 mg, Oral, Once, 1 dose, On Fri02/07/25 at 1805, STAT Given 02/07/2025 6:25 PM EDT 10 mg documented in this encounter Active and Recently Administered Medications Times are shown in EDT. Scheduled Medication Order 02/05/2025 02/06/2025 02/07/2025 acetaminophen (Tylenol) tablet 1,000 mg (COMPLETED) 1,000 mg, Oral, Once, 1 dose, On Fri02/07/25 at 1805, Routine 1825 (Given - Provid er: Geri Barfield RN) HYDROmorphone (Dilaudid) injection 1 mg (COMPLETED) 1 mg, Intravenous, Once, 1 dose, On Fri02/07/25 at 1635, Routine 1709 (Given - Provid er: Geri Barfield RN) ibuprofen tablet 800 mg (COMPLETED) 800 mg, Oral, Once, 1 dose, On Fri02/07/25 at 1805, STAT 1825 (Given - Provid er: Geri Barfield RN) lactated Ringer's infusion 1,000 mL (COMPLETED) 1,000 mL, Intravenous, Once, 1 dose, On Fri02/07/25 at 1605, STAT 1710 (New Bag - Prov ider: Geri Barfield RN)1817 (Stopped - Provider: Geri Barfield RN) lidocaine (Anecream) 4 % cream 1 Application (COMPLETED) Topical, Once, 1 dose, On Fri02/07/25 at 1605, STAT 1616 (Given - Provid er: Raysa Rivero RN) ondansetron (Zofran) injection 4 mg (COMPLETED) 4 mg, Intravenous, Once, 1 dose, On Fri02/07/25 at 1605, STAT 1709 (Given - Provid er: Geri Barfield RN) oxyCODONE (Roxicodone) immediate release tablet 10 mg (COMPLETED) 10 mg, Oral, Once, 1 dose, On Fri02/07/25 at 1805, STAT 1825 (Given - Provid er: Geri Barfield RN) PRN Medication Order 02/05/2025 02/06/2025 02/07/2025 heparin flush (porcine) 100 UNIT/ML injection 500 Units 500 Units, Intracatheter, As needed, Starting on Fri02/07/25 at 1817, Until Fri02/07/25 at 203, Routine, line care 1826 (Given - Provid er: Geri Barfield RN) documented in this encounter Care Teams Dramatic Reader Relationship Specialty Start Date End Date Pcp, Mounika [address] [place] [address] PCP - General Family Medicine 02/07/25 documented as of this encounter
--- OUTSIDE RECORDS SUMMARY | 2025-02-09 08:15 | XMS_ITS | Encounter Summary ---
Author Organization [place] [address] Care Team Providers Care Director Of Services Name Role Phone Rodriguez Lindo Primary Care Provider +1- [phone] Eden Noble RN Unavailable Unavailable Encounter Details Date Type Department Care Team (Latest Contact Info) Description 02/09/2025 8:15 AM EDT - 02/09/2025 8:29 AM EDT Hospital Encounter [facility] [place] [phone] Malignant neoplasm of overlapping sites of left [...] by mouth daily. 30 Tablet 11 02/01/2025 Magic Mouthwash (Lido/Diph/Nystat) oral compoundIndications: Malignant neoplasm of overlapping sites of left breast in female, estrogen receptor positive (HCC) Take 10-20 mL by mouth every 3 hours as needed. 450 mL 02/07/2025 ondansetron (ZOFRAN) 4 mg Oral TabletIndications:Ma lignant [...] AM EDT Appointment [place] [address] 04/15/2025 9:15 AM EDT [facility]ment [facility] [place] [address] Vane Hollingsworth MD [address] [place] [phone] documented as of this encounter Procedures Procedure [...] * MAGNESIUM LEVEL (02/09/2025 8:45 AM EDT) Pathologist [facility] Magnesium 2.1 1.6 - 2.4 mg/dL 02/09/2025 9:32 AM EDT [facility] Blood VENOUS STRUCTURE / Unknown Medicare Port / Unknown 02/09/2025 8:45 AM EDT 02/09/2025 8:46 AM EDT us Ancram E Klever HOG COOLER CHEMISTRY ORDERABLES Ernestine l Result [facility] [address] [place] [phone] * (ABNORMAL) COMPREHENSIVE METABOLIC PANEL (02/09/2025 8:45 AM EDT) Pathologist [facility] Sodium 142 136 - 145 mmol/L 02/09/2025 9:32 AM EDT [facility] Potassium 3.4(L) 3.5 - 5.0 mmol/L 02/09/2025 9:32 AM EDT [facility] Chloride 107 98 - 107 mmol/L 02/09/2025 9:32 AM EDT [facility] Total CO2 23 22 - 29 mmol/L 02/09/2025 9:32 AM EDT [facility] Anion Gap 12 7 - 16 mmol/L 02/09/2025 9:32 AM EDT [facility] Calcium 9.3 8.6 - 10.4 mg/dL 02/09/2025 9:32 AM EDT [facility] Glucose Lvl 101(H) 70 - 99 mg/dL 02/09/2025 9:32 AM EDT [facility] BUN 10 6 - 20 mg/dL 02/09/2025 9:32 AM EDT [facility] Creatinine 0.77 0.51 - 1.30 mg/dL 02/09/2025 9:32 AM EDT [facility] Albumin 4.0 3.5 - 5.2 gm/dL 02/09/2025 9:32 AM EDT [facility] Total Protein 6.3(L) 6.4 - 8.3 gm/dL 02/09/2025 9:32 AM EDT [facility] Bili Total <0.2(L) 0.2 - 1.3 mg/dL 02/09/2025 9:32 AM EDT [facility] ALT 15 <=41 U/L 02/09/2025 9:32 AM EDT [facility] AST 23 <=40 U/L 02/09/2025 9:32 AM EDT [facility] Alk Phos 109 36 - 123 U/L 02/09/2025 9:32 AM EDT [facility] eGFR (CKD-EPIcr 2020) 99 >=60 mL/min/1.7 3 m2 02/09/2025 9:32 AM EDT [facility] Comment:Estimated GFR was ca lculated using the CKD-EPIcr (2020) equation refit without race. The equation is recommended by the National Kidney Foundation - [place] Society of Nephrology Task Force. Blood VENOUS STRUCTURE / Unknown Medicare Port / Unknown 02/09/2025 8:45 AM EDT 02/09/2025 8:46 AM EDT Ancram E Klever HOG COOLER CHEMISTRY ORDERABLES [place] [address] * (ABNORMAL) CBC WITH DIFF (02/09/2025 8:45 AM EDT) WBC 28.7(H) 3.7 - 10.3 x10(3)/mc L 02/09/2025 9:45 AM EDT [facility] [employer] Comment:This is an appended report. These results have been appended to a previously preliminary verified report. RBC 3.12(L) 3.90 - 5.20 x10(6)/mc L 02/09/2025 9:45 AM EDT [facility] Hgb 9.6(L) 11.2 - 15.7 g/dL 02/09/2025 9:45 AM EDT [facility] Hct 29.9(L) 34.0 - 45.0 % 02/09/2025 9:45 AM EDT [facility] MCV 95.8 80.0 - 100.0 fL 02/09/2025 9:45 AM EDT [facility] MCH 30.8 26.0 - 34.0 pg 02/09/2025 9:45 AM EDT [facility] MCHC 32.1 30.7 - 35.5 g/dL 02/09/2025 9:45 AM EDT [facility] RDW 13.9 <=14.9 % 02/09/2025 9:45 AM EDT [facility] Platelet 217 155 - 369 x10(3)/mc L 02/09/2025 9:45 AM EDT [facility] MPV 9.5 8.8 - 12.5 fL 02/09/2025 9:45 AM EDT [facility] NRBC Auto % 0.8(H) <=0.0 % 02/09/2025 [...] 9:45 AM EDT [facility] [place] # 2.3(H) 0.3 - 0.9 x10(3)/mc L [...] AM EDT 02/09/2025 8:46 AM EDT us Ancram E Klever HOG COOLER HEMATOLOGY ORDERABLES Fin al Result [facility] [address] [place] [address] [facility], [facility] [address] [facility] , [place] [address] documented in this encounter Visit Diagnoses Diagnosis Malignant neoplasm of overlapping sites of left breast in female, estrogen receptor positive (HCC)- Primary documented in this encounter Administered Medications Inactive Administered Medications - up to 1 most recent administrations Medication Order MAR Action Action Date Dose Rate Site sodium chloride 0.9 % sterile syringe Intravenous, PRN, Starting on Fri02/09/25 at 0837, Until Elena 02/10/25 at 0410, [...] 12/2024 documented in this encounter Care Teams Director Of Services Relationship Specialty Start Date End Date [facility] [place] [address] [place] [address] PCP - General Clinic/Center - [facility] ([facility]) 12/03/16 Eden Noble RN Registered Nurse Infusion Therapy 02/09/25 02/09/25 documented as of this encounter
--- OUTSIDE RECORDS SUMMARY | 2025-02-09 08:30 | XMS_ITS | Encounter Summary ---
Author Organization [place] [address] Care Team Providers Care Measurement And Sensing Technician Name Role Phone Rodriguez Lindo Primary Care Provider [phone] Eden Noble RN Unavailable Unavailable Reason for Visit * Reason Comments Follow-up Breast Cancer Malignant neoplasm o f overlapping sites of left breast in female, estrogen receptor positive (HCC) Encounter Details Date Type Department Care Team (Latest Contact Info) Description 02/09/2025 8:30 AM EDT - 02/09/2025 8:59 AM EDT Hospital Encounter [facility] [place] [address] Ana Rosa Del Angel, [address] [place] [address] Antineoplastic chemotherapy induced anemia (Primary Dx) Discharge [...] encounter Progress Notes * Ana Rosa Del Angel, PHYSICAL SCIENCE TECHNICIAN - 02/09/2025 8:30 AM EDT Images from the original note were not included. Patient: Anne Kearney CSN: [id number] Date of : 1985 Age: 40 y.o. Date of Service: 02/09/2025 HEMATOLOGY/ONCOLOGY NEW PATIENT OFFICE NOTE Primary Care Physician: Rodriguez Lindo Referring Physician: Ana Rosa Del Angel APRN Reason for Referral: Breast Cancer CURRENT TREATMENT: 12/15/2024 - TC X 4 (first cycle given in [place]) Outside oncology history: Diagnosis Invasive lobular carcinoma, 2 o'clock left breast, Jul 2024 Grade 2 ER 76%, ID 24%, HER-2 0/negative, Ki67 13% Stage IIB; pT2, pN1a Oncotype DX recurrence score: 17 [facility] BRCA 1/2 CancerNext genetic test: Positive pathogenic mutation detected: BRCA2 History Hepatitis C-treated Treatment Summary 07/29/24 Bilateral mastectomies with positive (09/13) left axillary SLNB by Dr Giovanna Tolentino/[facility] General Surgery 08/16/24 Initiated endocrine hormone therapy with Tamoxifen 20mg daily by Dr Oliverio Prescott/[facility] Medical Oncology 10/01/24 Prophylactic total hysterectomy with bilateral salpino-oophorectomy by Dr Ministerio Gamino/[facility] [employer] 10/11/24 - 12/01/24 Completed adjuvant radiation therapy with 5040cGy over 28 fractions to left breast[address] Dr Angelito Pierson/[facility] Radiation Oncology 10/18/24 Discontinue Tamoxifen. Initiate Letrozole 2.5mg daily by Dr Oliverio Prescott/[facility] Medical Oncology. 12/15/24 Taxotere, Cyclophosphamide + GCSF [...] on cc view 06/18/24 US left breast/axilla (BHP): Targeted LEFT breast ultrasound 3:00 position, 5 [...] nipple, core needle biopsies: Invasive lobular carcinoma. [place] histologic score Glandular differentiation: Score 3. Nuclear pleomorphism: Score 2. Mitotic rate: Score 1. Overall grade: Grade 2. Maximum tumor diameter is at least 1.4 cm. ER 76%, ID 24%, HER-2 0/negative, Ki67 13% 06/29/24 MRI bilateral breast (BHP): The breast tissue is heterogeneously dense with [...] axillary or internal mammary lymphadenopathy identified. 06/29/24 [place] 1/2 CancerNext genetic test: Positive pathogenic mutation detected: BRCA2 Bilateral mastectomies with positive (1/6) left axillary SLNB by Dr Giovanna Tolentino/[facility] General Surgery 07/29/24 Left breast, total mastectomy: [...] with Tamoxifen 20mg daily by Dr Oliverio Prescott/[facility] Medical Oncology 08/16/24 [facility] labs: CEA 3.75, CA 27-29 14; CBC-WBC 14.6; ANC 8.7; ALC 4.2; Hgb 12.1; MCV 88.9; platelets 361,000; CMP WNL; ferritin 19, iron 34, fe sat 7% 08/18/24 CT chest ([facility]): No evidence of metastatic disease in the chest. Postoperative change of bilateral mastectomy. 08/18/24 CT abd/pelvis ([facility]): No evidence of metastatic disease in the abdomen or pelvis. 08/18/24 Bone scan ([facility]): No evidence of osteoblastic metastatic disease by bone scan. 08/30/24 Oncotype DX recurrence score: 17 09/16/[address] Angelito Pierson/[facility] Radiation Oncology who recommended adjuvant radiation therapy with 5040 cGy over 28 fractions to left breast/left chest wall [facility]. 09/20/[address] Oliverio Prescott/[facility] Medical Oncology who recommended referral to [employer] for prophylactic hysterectomy due to positive BRCA2 gene, to proceed with [facility] consult, to proceed with radiation therapy after [facility] consult and adjuvant Taxotere 75mg/m2, Cyclophosphamide 600mg/m2 every 3 weeks x4 cycles, but to hold until [facility] consult completed. 09/23/[address] Lit Sheets/[facility] Breast Medical Oncology who recommended adjuvantTaxotere Cyclophosphamide x4 cycles followed by adjuvant Aromatase inhibitor + Ribociclib + Zometa. 09/27/24 Bone density (P): Normal 10/01/24 Prophylactic total hysterectomy with bilateral salpino-oophorectomy by Dr Ministerio Gamino/[facility] [employer] 10/01/24 Uterus, cervix, bilateral tubes and ovaries, hysterectomy and bilateral salpingo-oophorectomy: Chronic cervicitis. Proliferative endometrium. Endometrial polyp. Adenomyosis. Completely transected right and left fallopian tubes and unremarkable fimbrial epithelial surface. Mesonephric cyst associated both left and right fallopian tubes. Corpora albicantia of right ovary.Corpora albicantia and 1 corpus hemorrhagicum of left ovary. Uterine weight of 141.7 g. 10/03/24 CT abd/pelvis ([facility]): Moderate pneumoperitoneum with scattered extraperitoneal air likely [...] fractions to left breast by Dr Angelito Pierson/[facility] Radiation Oncology 10/18/24 Follow-up evaluation with Dr Oliverio Prescott/[facility] Medical Oncology who recommended to discontinue Tamoxifen, initiate Letrozole 2.5mg daily and to anticipate adjuvant Taxotere 75mg/m2, Cyclophosphamide 600mg/m2 every 3 weeks x4 cycles 10/18/24 Discontinue Tamoxifen. Initiate Letrozole 2.5mg daily by Dr Oliverio Prescott/[facility] Medical Oncology 11/03/24 CT chest ([facility]): No acute abnormality in the chest. 11/03/24 US venous doppler upper right extremity ([facility]): There is no evidence of deep venous thrombosis of the right upper extremity. There is partial nonocclusive superficial thrombus in the cephalic vein. 12/01/24 Completed adjuvant radiation therapy with 5040cGy over 28 fractions to left breast by Dr Angelito Pierson/[facility] Radiation Oncology 12/15/24 First dose of TC HISTORY OF PRESENT ILLNESS: CC: Chief Complaint Patient presents with Follow-up Breast Cancer Malignant neoplasm of overlapping sites of left breast in female, estrogen receptor positive (HCC) Patient is a 40 y.o. female who presents for breast cancer follow up and treatment. First dose of TC in [place] and moved locally and here to [...] and [place] No nausea, some abdominal discomfort +BM last night normal To see new PCP on 01/30 in [place] - Dr. Garza Has scheduled pain visit on 01/[address] Neves in [place] HISTORY: Medical, Surgical, Social, Family histories were [...] pT2, pN1a (sn), Oncotype DX recurrence score: 17, Jul 2024 BRCA 2 -she has undergone [...] With anemia. 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 Dr. Hollingsworth will [...] Del Angel APRN Hematology and Medical Oncology [facility] documented in this encounter Plan of Treatment Upcoming Encounters Date Type Department Care Team (Late st Contact Info) Description 04/15/2025 8:45 AM EDT Appointment [facility] [place], [place] [id number] 04/15/2025 9:15 AM EDT Appointment [facility] [place], [place] [id number] Vane Hollingsworth MD [address] [place] [phone] documented as of this encounter Results * [...] - 38.0 pg 02/14/2025 11:15 AM EDT [employer] Blood VENOUS STRUCTURE / Unknown Port / Unknown 02/14/2025 11:01 AM EDT 02/14/2025 11:04 AM EDT Narrative First Aid Shot Therapy [facility] - 02/14/2025 11:15 AM EDT Reticulocyte hemoglobin [...] the youngest reticulocytes having the highest content. (1)Dejuan Y., et al. 2017. Int J Hematol 106:116-125. (2)Monico Foy., et al. 2017. Nutrients 9:450. (3)Tayler Echavarria, et al. 2014. Am J Clin Pathol 142:506-512. (4)Evelyn, L., et al. 2010. Blood 116:5722-4737. Ana Rosa Del Angel APRN HEMATOLOGY ORDERABLES Ernestine pinedo Result [employer] [address] [facility] , [place] [address] * FERRITIN (02/14/2025 11:01 AM EDT) Ferritin 144 30 - 150 ng/mL 02/14/2025 12:02 PM EDT [employer] Comment:The lower threshold of 30 is not statistically defined, nor internally validated. The threshold has been updated to more closely reflect a physiologic basis. Ebony Stephen et al. Physiologically based serum ferritin thresholds for iron deficiency in children and non- women: a [place] National Health and Nutrition Examination Surveys (NHANES) serial cross-sectional study. Lancet Haematol 2021;8:e572-82. Blood VENOUS STRUCTURE / Unknown Port / Unknown 02/14/2025 11:01 AM EDT 02/14/2025 11:04 AM EDT Narrative [facility]REFERRED [facility] [employer], [facility] - 02/14/2025 12:02 PM EDT Ingestion of manda doses of biotin (>5 mg/day) taken within 8 hours of drawing blood sample can interfere with this immunoassay test. Ana Rosa Del Angel [facility] CHEMISTRY ORDERABLES Final Result Performing Organization Address [facility] de Phone Number [facility] [employer] , [place] [address] * IRON+TIBC (02/14/2025 11:01 AM EDT) Pathologist [facility] [place] Iron 63 30 - 160 mcg/dL 02/14/2025 12:02 PM EDT [facility] [employer], [facility] Transferrin 205 200 - 360 mg/dL 02/14/2025 12:02 PM EDT [facility] [employer], [facility] Transferrin Saturation 22 20 - 50 % 02/14/2025 12:02 PM EDT [facility] [employer], [facility] TIBC 287 250 - 400 mcg/dL 02/14/2025 12:02 PM EDT [facility] [employer], [facility] Blood VENOUS STRUCTURE / Unknown Port / Unknown 02/14/2025 11:01 AM EDT 02/14/2025 11:04 AM EDT Ana Rosa Del Angel APRN CHEMISTRY ORDERABLES Final Result Performing Organization Address [facility] de Phone Number [facility] [employer] , [address] [place] [phone] * (ABNORMAL) CBC WITH DIFF (02/14/2025 11:01 AM EDT) WBC 9.3 3.7 - 10.3 x10(3)/mc L 02/14/2025 11:08 AM EDT [facility] RBC 3.50(L) 3.90 - 5.20 x10(6)/mc L 02/14/2025 11:08 AM EDT [facility] Hgb 10.7(L) 11.2 - 15.7 g/dL 02/14/2025 11:08 AM EDT [facility] Hct 34.3 34.0 - 45.0 % 02/14/2025 11:08 AM EDT [facility] MCV 98.0 80.0 - 100.0 fL 02/14/2025 11:08 AM EDT [facility] MCH 30.6 26.0 - 34.0 pg 02/14/2025 11:08 AM EDT [facility] MCHC 31.2 30.7 - 35.5 g/dL 02/14/2025 11:08 AM EDT [facility] RDW 14.9 <=14.9 % 02/[facility] Platelet 194 155 - 369 x10(3)/mc L 02/14/2025 11:08 AM [facility] MPV 9.2 8.8 - 12.5 fL 02/14/2025 11:08 AM [facility] Neut # Prelim 6.5(H) 1.6 - 6.1 x10(3)/mc L 02/14/2025 11:08 AM [facility] Comment:Preliminary automate d absolute neutrophil count. Value may change if manual differential is indicated. Neut Percent 70.0 % 02/14/2025 11:08 AM [facility] Comment:Neutrophils equals s egs plus bands Imm Gran% 4.1 % 02/14/2025 11:08 AM T [facility] Comment:Automated count of m etamyelocytes, myelocytes and promyelocytes. IG > 3% may predict positive blood cultures with 98% specificity and 92% PPV. Karthik Peña., et al. (2003). [place] Journal of Clinical Pathology, 120:5 [phone] Lymph Percent 15.1 % 02/14/2025 11:08 AM EDT [facility] [place] Percent 10.3 % 02/14/2025 11:08 AM EDT [facility] Eos Percent 0.1 % 02/14/2025 11:08 AM EDT [facility] Baso Percent 0.4 % 02/14/2025 11:08 AM EDT [facility] Neut # 6.5(H) 1.6 - 6.1 x10(3)/ L 02/14/2025 11:08 AM EDT [facility] Comment:Neutrophils equals s egs plus bands IMMGRAN# 0.4(H) 0.0 - 0.1 x10(3)/mc L 02/14/2025 11:08 AM EDT [facility] Comment:Automated count of m etamyelocytes, myelocytes and promyelocytes. An absolute IG <0.1 is reported as 0.0. Lymph # 1.4 1.2 - 3.9 x10(3)/ L 02/14/2025 11:08 AM EDT [facility] [place] # 1.0(H) 0.3 - 0.9 x10(3)/mc L 02/14/2025 11:08 AM EDT [facility] Eos# 0.0 0.0 - 0.5 x10(3)/ L 02/14/2025 11:08 AM EDT [facility] Baso # 0.0 0.0 - 0.1 x10(3)/ L 02/14/2025 11:08 AM EDT [facility] Blood VENOUS STRUCTURE / Unknown Port / Unknown 02/14/2025 11:01 AM EDT 02/14/2025 11:04 AM EDT Ana Rosa Del Angel PHYSICAL SCIENCE TECHNICIAN HEMATOLOGY ORDERABLES Ernestine pinedo Result [facility] [address] [place] [phone] documented in this encounter Visit Diagnoses Diagnosis [...] 02/07/2025 added in this encounter Care Teams Measurement And Sensing Technician Relationship Specialty Start Date End Date Rodriguez Lindo [address] [place] [address] PCP - General Clinic/Center - [facility] ([facility]) 12/03/16 Eden Noble RN Registered Nurse Infusion Therapy 02/09/25 02/09/25 documented as of this encounter
--- OUTSIDE RECORDS SUMMARY | 2025-02-09 09:00 | XMS_ITS | Encounter Summary ---
Author [place] [address] Care Team Providers Care Earth Science Teacher Name Role Phone Rodriguez Lindo Primary Care Provider +1- [phone] Eden Noble RN Unavailable Unavailable Reason for Visit * Oncology Medication Prior Authorization (Routine) - Closed Specialty Diagnoses / Procedures Referred By Raman t Referred To Contact Diagnoses Malignant neoplasm of overlapping sites of left breast in female, estrogen receptor positive (HCC) Procedures ONCOLOGY MEDICATION AUTHORIZATION Vane Hollingsworth MD [address] [place] [address] Phone: tel: fax: Vane Hollingsworth MD [address] [place] [address] Phone: tel: fax: Referral ID Status Reason Start Date Expiration Date Visits Re quested Visits Authorized [id number] Closed 02/09/2025 02/09/2026 1 1 Encounter Details Date Type Department Care Team (Latest Contact Info) Description 02/09/2025 9:00 AM EDT - 02/09/2025 11:59 PM EDT Hospital [facility] [place] [address] Malignant neoplasm of overlapping [...] Noble RN - 02/09/2025 9:00 AM EDT [facility] Discharge Instructions Thank you for entrusting the [facility] with your care. We hope you [...] infection DON'T WAIT, PLEASE CALL US FIRST [phone]. [FOR URGENT ISSUES PLEASE DO NOT LEAVE A MESSAGE, FOLLOW PROMPTS TO THE DOCTOR ECONOMIC RESEARCH ANALYST] For Gynecology / Oncology call : [phone] Our hours of operation are Friday - Friday 8:00 AM - 4:30 PM. [facility] [address] [place] [address] [place] [address] [address] Results for orders placed or [...] Lymph # 2.3 1.2 - 3.9 x10(3)/mcL [place] # 2.3 (H) 0.3 - 0.9 x10(3)/mcL [...] AM EDT Appointment [place] [address] 04/15/2025 9:15 AM EDT [facility] [place] [address] Vane Hollingsworth MD [address] [place] [address] documented as of this encounter Visit Diagnoses [...] 02/09/2025 documented in this encounter Care Teams Earth Science Teacher Relationship Specialty Start Date End Date Rodriguez Lindo [address] [place] [address] PCP - General Clinic/Center - [facility] ([facility]) 12/03/16 Eden Noble, RN Registered Nurse Infusion Therapy 02/09/25 02/09/25 documented as of this encounter
--- OUTSIDE RECORDS SUMMARY | 2025-02-14 10:51 | XMS_ITS | Encounter Summary ---
Author Organization [place] [address] Care Team Providers Care Ground Support Agent Name Role Phone Rodriguez Lindo Primary Care Provider +1- [phone] Encounter Details Date Type Department Care Team (Latest Contact Info) Description 02/14/2025 10:51 AM EDT - 02/14/2025 11:03 AM EDT Hospital Encounter [facility] [place], [place] [phone] Malignant neoplasm of overlapping sites of left [...] AM EDT Appointment [place] [address] 04/15/2025 9:15 AM EDT [facility]ointment [facility] [place] [address] Vane Hollingsworth MD [address] [place] [phone] documented as of this encounter Procedures Procedure [...] % 02/14/2025 11:15 AM EDT [facility], [facility] Retic # 135.5(H) 40.0 - 110.0 x10(3)/mcL 02/14/2025 11:15 AM EDT [facility], [place] Imm. Retic Fraction % 29.1(H) 3.1 - 17.6 % 02/14/2025 11:15 AM EDT [facility], [facility] Retic Hgb 35.1 28.0 - 38.0 pg 02/14/2025 11:15 AM EDT [facility] [employer], [facility] Blood VENOUS STRUCTURE / Unknown Port / Unknown 02/14/2025 11:01 AM EDT 02/14/2025 11:04 AM EDT Narrative [facility] [employer] - 02/14/2025 11:15 AM EDT Reticulocyte hemoglobin [...] et al. 2017. Int J Hematol 106:116-125. (2)Martha Foy, et al. 2017. Nutrients 9:450. (3)Tayler Echavarria et al. 2014. Am J Clin Pathol 142:506-512. (4)Opal Rivas, et al. 2010. Blood 116:8939-8565. Ana Rosa Del Angel APRN HEMATOLOGY ORDERABLES Ernestine l Result Performing Organization Address [facility]/ZIP Co de Phone Number [email or web address] [address] , [address] [place] [id number] * FERRITIN (02/14/2025 11:01 AM EDT) Ferritin 144 30 - 150 ng/mL 02/14/2025 12:02 PM EDT [email or web address] Comment:The lower threshold of 30 is not statistically defined, nor internally validated. The threshold has been updated to more closely reflect a physiologic basis. Ebony Stephen, et al. Physiologically based serum ferritin thresholds for iron deficiency in children and non- women: a National Health and Nutrition Examination Surveys (NHANES) serial cross-sectional study. Lancet Haematol 202;8:e572-82. Blood VENOUS STRUCTURE / Unknown Port / Unknown 02/14/2025 11:01 AM EDT 02/14/2025 11:04 AM EDT Narrative [facility] - 02/14/2025 12:02 PM EDT Ingestion of manda doses of biotin (>5 mg/day) taken within 8 hours of drawing blood sample can interfere with this immunoassay test. Ana Rosa Del Angel APRN CHEMISTRY ORDERABLES Final Result Performing Organization Address [facility]/ZIP Co de Phone Number [facility] [email or web address] [facility] [address] [facility] , [place] [address] * IRON+TIBC (02/14/2025 11:01 AM EDT) Iron 63 30 - 160 mcg/dL 02/14/2025 12:02 PM EDT [facility] [employer], [facility] Transferrin 205 200 - 360 mg/dL 02/14/2025 12:02 PM EDT [facility] [employer], [facility] Transferrin Saturation 22 20 - 50 % 02/14/2025 12:02 PM EDT [facility], [facility] TIBC 287 250 - 400 mcg/dL 02/14/2025 12:02 PM EDT [facility], [facility] Blood VENOUS STRUCTURE / Unknown Port / Unknown 02/14/2025 11:01 AM EDT 02/14/2025 11:04 AM EDT us Ana Rosa Del Angel [employer] CHEMISTRY ORDERABLES Final Result [facility], [facility] [address] [facility] , [place] [address] * (ABNORMAL) CBC WITH DIFF (02/14/2025 11:01 AM EDT) WBC 9.3 3.7 - 10.3 x10(3)/mc L 02/14/2025 11:08 AM EDT [facility] RBC 3.50(L) 3.90 - 5.20 x10(6)/mc L 02/14/2025 11:08 AM EDT [facility] Hgb 10.7(L) 11.2 - 15.7 g/dL 02/14/2025 11:08 AM EDT [facility] Hct 34.3 34.0 - 45.0 % 02/14/2025 11:08 AM EDT [facility] MCV 98.0 80.0 - 100.0 fL 02/14/2025 11:08 AM EDT [facility] MCH 30.6 26.0 - 34.0 pg 02/14/2025 11:08 AM EDT [facility] MCHC 31.2 30.7 - 35.5 g/dL 02/14/2025 11:08 AM EDT [facility] RDW 14.9 <=14.9 % 02/14/2025 11:08 AM EDT [facility] Platelet 194 155 - 369 x10(3)/mc L 02/14/2025 11:08 AM EDT [facility] MPV 9.2 8.8 - 12.5 fL 02/14/2025 11:08 AM EDT [facility] Neut # Prelim 6.5(H) 1.6 - 6.1 x10(3)/mc L 02/14/2025 11:08 AM EDT [facility] Comment:Preliminary automate d absolute neutrophil count. Value may change if manual differential is indicated. Neut Percent 70.0 % 02/14/2025 11:08 AM EDT [facility] Comment:Neutrophils equals s egs plus bands Imm Gran% 4.1 % 02/14/2025 11:08 AM EDT [facility] Comment:Automated count of m etamyelocytes, myelocytes and promyelocytes. IG > 3% may predict positive blood cultures with 98% specificity and 92% PPV. Karthik Peña., et al. (2003). [place] Journal of Clinical Pathology, 120:6, 142 799 Lymph Percent 15.1 % 02/14/2025 11:08 AM EDT [facility] [place] Percent 10.3 % 02/14/2025 11:08 AM EDT [facility] Eos Percent 0.1 % 02/14/2025 11:08 AM EDT [facility] Baso Percent 0.4 % 02/14/2025 11:08 AM EDT [facility] Neut # 6.5(H) 1.6 - 6.1 x10(3)/mc L 02/14/2025 11:08 AM [facility] Comment:Neutrophils equals s egs plus bands IMMGRAN# 0.4(H) 0.0 - 0.1 x10(3)/mc L 02/14/2025 11:08 AM EDT [facility] Comment:Automated count of m etamyelocytes, myelocytes and promyelocytes. An absolute IG <0.1 is reported as 0.0. Lymph # 1.4 1.2 - 3.9 x10(3)/mc L 02/14/2025 11:08 AM EDT [facility] [place] # 1.0(H) 0.3 - 0.9 x10(3)/mc L 02/14/2025 11:08 AM EDT [facility] Eos# 0.0 0.0 - 0.5 x10(3)/mc L 02/14/2025 11:08 AM EDT [facility] Baso # 0.0 0.0 - 0.1 x10(3)/mc L 02/14/2025 11:08 AM EDT [facility] Blood VENOUS STRUCTURE / Unknown Port / Unknown 02/14/2025 11:01 AM EDT 02/14/2025 11:04 AM EDT us Ana Rosa Del Angel SOLE ROUNDER HEMATOLOGY ORDERABLES Ernestine pinedo Result [facility] 1 [place] [address] documented in this encounter Visit Diagnoses Diagnosis [...] PRN, Starting on Fri02/14/25 at 1053, Until Tu02/15/25 at 0405, Line Care, For Venous Access Device care and maintenance., Dx: 1. Malignant neoplasm of overlapping sites of left breast in female, estrogen receptor positive (HCC)Indications:Malignant neoplasm of overlapping sites of left breast in female, estrogen receptor positive (HCC) Given 02/14/2025 11:00 AM EDT 10 mL documented in this encounter Care Teams Ground Support Agent Relationship Specialty Start Date End Date Rodriguez Lindo [address] [place] [address] PCP - General Clinic/Center - [facility] ([facility]) 12/03/16 documented as of this encounter
--- OUTSIDE RECORDS SUMMARY | 2025-02-14 11:04 | XMS_ITS | Encounter Summary ---
Author Organization [place] [address] Care Team Providers Care Foam Gun Operator Name Role Phone Rodriguez Lindo Primary Care Provider +1- [phone] Reason for Visit * Reason Comments Cancer Here to discuss lab results. Encounter Details Date Type Department Care Team (Latest Contact Info) Description 02/14/2025 11:04 AM EDT - 02/14/2025 11:59 PM EDT Hospital Encounter [facility] [place], [place] [phone] Malignant neoplasm of overlapping sites of left [...] AM EDT Appointment [facility] [place], [place] [phone] 04/15/2025 9:15 AM EDT Appointment [facility] [place], [place] [phone] Vane Hollingsworth MD [address] [place] [address] [phone] documented as of this encounter Visit Diagnoses Diagnosis Malignant neoplasm of overlapping sites of left breast in female, estrogen receptor positive (HCC)- Primary documented in this encounter Care Teams Foam Gun Operator Relationship Specialty Start Date End Date [facility] [address] [place] [id number] PCP - General Clinic/Center - [facility] ([facility]) 12/03/16 documented as of this encounter
--- OUTSIDE RECORDS SUMMARY | 2025-02-21 08:13 | XMS_ITS | Encounter Summary ---
Author [place] [address] Care Team Providers Care Ux Lead Name Role Phone Rodriguez Lindo Primary Care Provider +1- [phone] Vane Hollingsworth MD Unavailable +1- [phone] Terri Tay RN Unavailable Unavailable Encounter Details Date Type Department Care Team (Latest Contact Info) Description 02/21/2025 8:13 AM EDT - 02/21/2025 8:26 AM EDT Hospital Encounter [place] [address] Malignant neoplasm of overlapping sites [...] AM EDT Appointment [place] [address] 04/15/2025 9:15 AM EDT [facility]ment [facility] [place] [address] Vane Hollingsworth MD [address] [place] [id number] documented as of this encounter Procedures Procedure Name Priority Date/Time Associated Diagnosis Comments CBC WITH DIFF STAT 02/21/2025 8:24 AM EDT Malignant neoplasm of overlapping sites of left breast in female, estrogen receptor positive (HCC) COMPREHENSIVE METABOLIC PANEL STAT 02/21/2025 8:24 AM EDT Malignant neoplasm of overlapping sites of left breast in female, estrogen receptor positive (HCC) documented in this encounter Results * (ABNORMAL) COMPREHENSIVE METABOLIC PANEL (02/21/2025 8:24 AM EDT) Sodium 143 136 - 145 mmol/L 02/21/2025 8:46 AM EDT [facility] Potassium 3.9 3.5 - 5.0 mmol/L 02/21/2025 8:46 AM EDT [facility] Chloride 111(H) 98 - 107 mmol/L 02/21/2025 8:46 AM EDT [facility] Total CO2 23 22 - 29 mmol/L 02/21/2025 8:46 AM EDT [facility] Anion Gap 9 7 - 16 mmol/L 02/[facility]25 [facility] Calcium 8.8 8.6 - 10.4 mg/dL 02/21/2025 8:46 AM EDT [facility] Glucose Lvl 95 70 - 99 mg/dL 02/21/2025 8:46 AM EDT [facility] BUN 9 6 - 20 mg/dL 02/21/2025 8:46 [facility] Creatinine 0.68 0.51 - 1.30 mg/dL 02/21/2025 8:46 [facility] Albumin 3.6 3.5 - 5.2 gm/dL 02/21/2025 8:46 AM EDT [facility] Total Protein 5.9(L) 6.4 - 8.3 gm/dL 02/21/2025 8:46 AM EDT [facility] Bili Total <0.2(L) 0.2 - 1.3 mg/dL 02/21/2025 8:46 AM EDT [facility] ALT 11 <=41 U/L 02/21/2025 8:46 AM EDT [facility] AST 18 <=40 U/L 02/21/2025 8:46 AM EDT [facility] Alk Phos 81 36 - 123 U/L 02/21/2025 8:46 AM EDT [facility] eGFR (CKD-EPIcr 2020) 112 >=60 mL/min/1.7 3 m2 02/21/2025 8:46 AM EDT [facility] Comment:Estimated GFR was ca lculated using the CKD-EPIcr (2020) equation refit without race. The equation is recommended by the National Kidney Foundation - [place] [employer] of Nephrology Task Force. Blood VENOUS STRUCTURE / Unknown Port / Unknown 02/21/2025 8:24 AM EDT 02/21/2025 8:26 AM EDT Isaias Miller MD CHEMISTRY ORDERABLES Final Result [facility] [address] [place] [address] * (ABNORMAL) CBC WITH DIFF (02/21/2025 8:24 AM EDT) WBC 5.6 3.7 - 10.3 x10(3)/mc L 02/21/2025 8:32 AM EDT [facility] RBC 3.19(L) 3.90 - 5.20 x10(6)/mc L 02/21/2025 8:32 AM EDT [facility] Hgb 10.1(L) 11.2 - 15.7 g/dL 02/21/2025 8:32 AM EDT [facility] Hct 31.5(L) 34.0 - 45.0 % 02/21/2025 8:32 AM EDT [facility] MCV 98.7 80.0 - 100.0 fL 02/21/2025 8:32 AM EDT [facility] MCH 31.7 26.0 - 34.0 pg 02/21/2025 8:32 AM EDT [facility] MCHC 32.1 30.7 - 35.5 g/dL 02/21/2025 8:32 AM EDT [facility] RDW 15.9(H) <=14.9 % 02/21/2025 8:32 AM EDT [facility] Platelet 305 155 - 369 x10(3)/mc L 02/21/2025 8:32 AM EDT [facility] MPV 9.0 8.8 - 12.5 fL 02/21/2025 8:32 AM EDT [facility] Neut # Prelim 3.7 1.6 - 6.1 x10(3)/mc L 02/21/2025 8:32 AM EDT [facility] Comment:Preliminary automate d absolute neutrophil count. Value may change if manual differential is indicated. Neut Percent 65.7 % 02/21/2025 8:32 AM EDT [facility] Comment:Neutrophils equals s egs plus bands Imm Gran% 0.2 % 02/21/2025 8:32 AM EDT [facility] Comment:Automated count of m etamyelocytes, myelocytes and promyelocytes. Lymph Percent 14.9 % 02/21/2025 8:32 AM EDT [facility] [place] Percent 18.3 % 02/21/2025 8:32 AM EDT [facility] Eos Percent 0.0 % 02/21/2025 8:32 AM EDT [facility] Baso Percent 0.9 % 02/21/2025 8:32 AM EDT [facility] Neut # 3.7 1.6 - 6.1 x10(3)/mc L 02/21/2025 8:32 AM EDT [facility] Comment:Neutrophils equals s egs plus bands IMMGRAN# 0.0 0.0 - 0.1 x10(3)/mc L 02/21/2025 8:32 AM EDT [facility] Comment:Automated count of m etamyelocytes, myelocytes and promyelocytes. An absolute IG <0.1 is reported as 0.0. Lymph # 0.8(L) 1.2 - 3.9 x10(3)/mc L 02/21/2025 8:32 AM EDT [facility] [place] # 1.0(H) 0.3 - 0.9 x10(3)/mc L 02/21/2025 8:32 AM EDT [facility] Eos# 0.0 0.0 - 0.5 x10(3)/mc L 02/21/2025 8:32 AM EDT [facility] Baso # 0.1 0.0 - 0.1 x10(3)/mc L 02/21/2025 8:32 AM EDT [facility] Blood VENOUS STRUCTURE / Unknown Port / Unknown 02/21/2025 8:24 AM EDT 02/21/2025 8:26 AM EDT Isaias Miller MD HEMATOLOGY ORDERABLES Final Result [facility] [address] [place] [address] documented in this encounter Visit Diagnoses Diagnosis Malignant neoplasm of overlapping sites of left breast in female, estrogen receptor positive (HCC)- Primary documented in this encounter Administered Medications Inactive Administered Medications - up to 1 most recent administrations Medication Order MAR Action Action Date Dose Rate Site sodium chloride 0.9 % sterile syringe 10 mL 10 mL, Intravenous, ONCE, 1 dose, On Fri02/21/25 at 0830, For initial access of Venous Access Device., Dx: 1. Malignant neoplasm of overlapping sites of left breast in female, estrogen receptor positive (HCC)Indications:Malignant neoplasm of overlapping sites of left breast in female, estrogen receptor positive (HCC) Given 02/21/2025 8:26 AM EDT 10 mL documented in this encounter Orders Medications Ordered That Jose Angel ht Not Have Been Administered Count Last Ordered Date First Ordered Date sodium chloride 0.9 % steril e syringe 10 mL 1 02/21/2025 documented in this encounter Care Teams Ux Lead Relationship Specialty Start Date End Date [facility] [address] [place] [phone] PCP - General Clinic/Center - [facility] ([facility]) 12/03/16 Vane Hollingsworth MD [address] [place] [address] Internal Medicine-Hematology and Oncology 02/21/25 Terri Tay RN Registered Nurse Infusion Therapy 02/21/25 02/21/25 documented as of this encounter
--- OUTSIDE RECORDS SUMMARY | 2025-02-21 08:27 | XMS_ITS | Encounter Summary ---
Author Organization [place] [address] Care Team Providers Care Small Business Banking Officer Name Role Phone Rodriguez Lindo Primary Care Provider +1- [phone] Vane Hollingsworth MD Unavailable +1- [phone] Terri Tay RN Unavailable Unavailable Reason for Visit * Reason Comments Follow-up Breast Cancer Chemotherapy Encounter Details Date Type Department Care Team (Latest Contact Info) Description 02/21/2025 8:27 AM EDT - 02/21/2025 9:19 AM EDT Hospital Encounter [facility] [place], [place] [phone] Vane Hollingsworth MD [address] [place] [address] [id number] Malignant neoplasm of overlapping sites of left [...] were not included. Patient: Anne Kearney CSN: [id number] Date of : 1985 Age: 40 y.o. Date of Service: 02/21/2025 HEMATOLOGY/ONCOLOGY FU PATIENT OFFICE NOTE CURRENT TREATMENT: 12/15/2024 - TC X 4 (first cycle given in [place]) Outside oncology history: Diagnosis Invasive lobular carcinoma, 2 o'clock left breast, Jul 2024 Grade 2 ER 76%, IA 24%, HER-2 0/negative, Ki67 13% Stage IIB; pT2, pN1a Oncotype DX recurrence score: 17 Ambry BRCA 1/2 CancerNext genetic test: Positive pathogenic mutation detected: BRCA2 History Hepatitis C-treated Treatment Summary 07/29/24 Bilateral mastectomies with positive (1/) left axillary SLNB by Dr Giovanna Tolentino/[facility] General Surgery 08/16/24 Initiated endocrine hormone therapy with Tamoxifen 20mg daily by Dr Oliverio Prescott/[facility] Medical Oncology 10/01/24 Prophylactic total hysterectomy with bilateral salpino-oophorectomy by Dr Ministerio Gamino/[facility] [facility] 10/11/24 - 12/01/24 Completed adjuvant radiation therapy with 5040cGy over 28 fractions to left breastby Dr Angelito Pierson/[facility] Radiation Oncology 10/18/24 Discontinue Tamoxifen. Initiate Letrozole 2.5mg daily by Dr Oliverio Prescott/[facility] Medical Oncology. 12/15/24 Taxotere, Cyclophosphamide + GCSF every for 3 weeks x4 cycles Cancer History 06/14/24 Bilateral screening mammogram (P): No suspicious mammographic findings in the RIGHT breast. LEFT breast 4 mm focal asymmetry in the middle to posterior third, outer central breast, 3 o'clock position, 5 cm from the nipple on cc view. 06/14/24 Transvaginal US ([facility]): Physiologic appearance of the uterus and [...] is at least 1.4 cm. ER 76%, IA 24%, HER-2 0/negative, Ki67 13% 06/29/24 MRI [...] (1/6) left axillary SLNB by Dr Giovanna Tolentino/[facility] General Surgery 07/29/24 Left breast, [...] with Tamoxifen 20mg daily by Dr Oliverio Prescott/[facility] Medical Oncology 08/16/24 [facility] labs: CEA 3.75, CA 27-29 14; CBC-WBC 14.6; ANC 8.7; ALC 4.2; Hgb 12.1; MCV 88.9; platelets 361,000; CMP WNL; ferritin 19, iron 34, fe sat 7% 08/18/24 CT chest ([facility]): No evidence of metastatic disease in the chest. Postoperative change of bilateral mastectomy. 08/18/24 CT abd/pelvis ([facility]): No evidence of metastatic disease in the abdomen or pelvis. 08/18/24 Bone scan ([facility]): No evidence of osteoblastic metastatic disease by bone scan. 08/30/24 Oncotype DX recurrence score: 17 09/16/[address] Angelito Pierson/[facility] Radiation Oncology who recommended adjuvant radiation therapy with 5040 cGy over 28 fractions to left breast/left chest wall [facility] regarding adjuvant chemotherapy. 09/20/[address] Oliverio Prescott/[facility] Medical Oncology who recommended referral to [facility] for prophylactic hysterectomy due to positive BRCA2 [...] sal[facility] 10/01/24 Uterus, cervix, bilateral tubes and ovaries, hysterectomy and bilateral salpingo-oophorectomy: Chronic cervicitis. Proliferative endometrium. Endometrial polyp. Adenomyosis. Completely transected right and left fallopian tubes and unremarkable fimbrial epithelial surface. Mesonephric cyst associated both left and right fallopian tubes. Corpora albicantia of right ovary.Corpora albicantia and 1 corpus hemorrhagicum of left ovary. Uterine weight of 141.7 g. 10/03/24 CT abd/pelvis ([facility]): Moderate pneumoperitoneum with scattered extraperitoneal [...] fractions to left breast by Dr Angelito Pierson/[facility] Radiation Oncology 10/18/24 Follow-up evaluation with Dr Oliverio Prescott/[facility] Medical Oncology who recommended to discontinue Tamoxifen, initiate Letrozole 2.5mg daily and to anticipate adjuvant Taxotere 75mg/m2, Cyclophosphamide 600mg/m2 every 3 weeks x4 cycles 10/18/24 Discontinue Tamoxifen. Initiate Letrozole 2.5mg daily by Dr Oliverio Prescott/[facility] Medical Oncology 11/03/24 CT chest ([facility]): No acute abnormality in the chest. 11/03/24 US venous doppler upper right extremity ([facility]): There is no evidence of deep venous thrombosis of the right upper extremity. There is partial nonocclusive superficial thrombus in the cephalic vein. 12/01/24 Completed adjuvant radiation therapy with 5040cGy over 28 fractions to left breast by Dr Angelito Pierson/[facility] Radiation Oncology 12/15/24 First dose of TC HISTORY OF PRESENT ILLNESS: CC: Chief Complaint Patient presents with Follow-up Breast Cancer Chemotherapy Patient is a 40 y.o. female who presents for breast cancer follow up and treatment. First dose of TC in [place] and moved locally and here to [...] and [place] No nausea, some abdominal discomfort +BM last night normal To see new PCP on 01/30 in [place] - Dr. Garza - this did Interval hx: Heightended pain with tx, drowsiness, poor appetite. Has scheduled pain visit on 03/[address] Neves in [place]? HISTORY: Medical, Surgical, Social, Family histories were [...] o'clock left breast, Grade 2, ER 76%, IA 24%, HER-2 0/negative, Ki67 13%, pT2, pN1a [...] visit on 03/[address] Neves in [place]? Dispo: Return for schedule next cycle and fluids lorena end of this week. Thank you for the opportunity to assist in the care of this patient, please feel free to contact meif I can be of any assistance. Vane Hollingsworth MD Hematology and Medical Oncology [facility] documented in this encounter Miscellaneous Notes * Addendum Note - Cecy Rutledge RN - 02/21/2025 9:00 AM EDTEncounter addended by: Cecy Rutledge RN on: 02/24/2025 3:04 PM Actions taken: Order list changed, Treatment plan modified documented in this encounter Plan of Treatment Upcoming Encounters Date Type Department Care Team (Late st Contact Info) Description 04/15/2025 8:45 AM EDT Appointment [place] [address] 04/15/2025 9:15 AM EDT Appointment [facility] [place], [place] [phone] Vane Hollingsworth MD [address] [place], [place] [phone] documented as of this encounter Visit Diagnoses Diagnosis Malignant neoplasm of overlapping sites of left breast in female, estrogen receptor positive (HCC)- Primary documented in this encounter Care Teams Small Business Banking Officer Relationship Specialty Start Date End Date [facility] [address] [place] [address] PCP - General Clinic/Center - [facility] ([facility]) 12/03/16 Vane Hollingsworth MD [address] [place] [address] [phone] Internal Medicine-Hematology and Oncology 02/21/25 Terri Tay RN Registered Nurse Infusion Therapy 02/21/25 02/21/25 documented as of this encounter
--- OUTSIDE RECORDS SUMMARY | 2025-02-21 09:20 | XMS_ITS | Encounter Summary ---
Author Organization [place] [address] Care Team Providers Care Collar Worker Name Role Phone Rodriguez Lindo Primary Care Provider +1- [phone] Vane Hollingsworth MD Unavailable +1- [phone] Terri Tay RN Unavailable Unavailable Reason for Visit * Oncology Medication Prior Authorization (Routine) - Authorized Specialty Diagnoses / Procedures Referred By Contac t Referred To Contact Diagnoses Malignant neoplasm of overlapping sites of left breast in female, estrogen receptor positive (HCC) Procedures ONCOLOGY MEDICATION AUTHORIZATION Vane Hollingsworth MD [address] [place] [address] Phone: tel: fax: Vane Hollingsworth MD [address] [place] [address] Phone: tel: fax: Referral ID Status Reason Start Date Expiration Date V isits Requested Visits Authorized [id number] Authorized 01/21/2025 01/21/2026 1 6 Encounter Details Date Type Department Care Team (Latest Contact Info) Description 02/21/2025 9:20 AM EDT - 02/21/2025 11:59 PM EDT Hospital Encounter [facility] [place] [address] Malignant neoplasm of overlapping sites [...] Romero RN - 02/21/2025 9:30 AM EDT [facility] Discharge Instructions Thank you for entrusting the [facility] with your care. We hope you [...] infection DON'T WAIT, PLEASE CALL US FIRST [phone]. [FOR URGENT ISSUES PLEASE DO NOT LEAVE A MESSAGE, FOLLOW PROMPTS TO THE DOCTOR HAND CIGAR MAKER] For Gynecology / Oncology call : [phone] Our hours of operation are Friday - Friday 8:00 AM - 4:30 PM. [facility] Scott Johnson [address] [address] [place] [address] [place], [place] [phone] [place] [address] [place] [address] Results for orders placed or performed [...] Gran% 0.2 % Lymph Percent 14.9 % [place] Percent 18.3 % Eos Percent 0.0 % Baso Percent 0.9 % Neut # 3.7 1.6 - 6.1 x10(3)/mcL IMMGRAN# 0.0 0.0 - 0.1 x10(3)/mcL Lymph # 0.8 (L) 1.2 - 3.9 x10(3)/mcL [place] # 1.0 (H) 0.3 - 0.9 x10(3)/mcL [...] AM EDT Appointment [place] [address] 04/15/2025 9:15 AM EDT Appointment [facility] [place] [address] Vane Hollingsworth MD [address] [place] [address] documented as of this encounter Visit Diagnoses Diagnosis Malignant neoplasm of overlapping sites of left breast in female, estrogen receptor positive (HCC)- Primary documented in this encounter Administered Medications Inactive Administered Medications - up to 1 most recent administrations Medication Order MAR Action Action Date Dose Rate Site 0.9 % NaCl infusion Intravenous, at 30 mL/hr, CONTINUOUS, Starting on 02/21/25 at 1000, Until Fri02/22/25 at 0411, For station engineer main line during chemotherapy infusion., Dx: 1. Malignant neoplasm [...] 2024 documented in this encounter Care Teams Collar Worker Relationship Specialty Start Date End Date [facility] [address] [place] [phone] PCP - General Clinic/Center - [facility] ([facility]) 12/03/16 Vane Hollingsworth MD [address] [place], [place] [phone] Internal Medicine-Hematology and Oncology 02/21/25 Terri Tay RN Registered Nurse Infusion Therapy 02/21/25 02/21/25 documented as of this encounter
--- OUTSIDE RECORDS SUMMARY | 2025-02-22 13:14 | XMS_ITS | Encounter Summary ---
Author Organization [place] [address] Care Team Providers Care Crepe Maker Name Role Phone Rodriguez Lindo Primary Care Provider +1- [phone] Vane Hollingsworth MD Unavailable +1- [phone] Moriah Woods RN Unavailable Unavailabl e Reason for Visit * Oncology Medication Prior Authorization (Routine) - Authorized Specialty Diagnoses / Procedures Referred By Contac t Referred To Contact Diagnoses Malignant neoplasm of overlapping sites of left breast in female, estrogen receptor positive (HCC) Procedures ONCOLOGY MEDICATION AUTHORIZATION Vane Hollingsworth MD [address] [place] [address] Phone: tel: fax: Vane Hollingsworth MD [address] [place], [place] [address] Phone: tel: fax: Referral ID Status Reason Start Date Expiration Date V isits Requested Visits Authorized [id number] Authorized 01/21/2025 01/21/2026 1 6 Encounter Details Date Type Department Care Team (Latest Contact Info) Description 02/22/2025 1:14 PM EDT - 02/22/2025 11:59 PM EDT Hospital Encounter [place] [address] Malignant neoplasm of overlapping sites [...] Woods RN - 02/22/2025 1:30 PM EDT [facility] Discharge Instructions Thank you for entrusting the [facility] with your care. We [...] infection DON'T WAIT, PLEASE CALL US FIRST [phone]. [FOR URGENT ISSUES PLEASE DO NOT LEAVE A MESSAGE, FOLLOW PROMPTS TO THE DOCTOR SECRETARY BOOKKEEPER] For Gynecology / Oncology call : [phone] Our hours of operation are Friday - Friday 8:00 AM - 4:30 PM. [facility] [address] [place] [address] 089 [phone] [place] [address] [place] [address] No results found for any visits on 02/22/25. documented in this encounter Plan of Treatment Upcoming Encounters Date Type Department Care Team (Late st Contact Info) Description 04/15/2025 8:45 AM EDT Appointment [facility] [place], [place] [address] 04/15/2025 9:15 AM EDT [facility]ment [facility] [place], [place] [phone] Vane Hollingsworth MD [address] [place] [address] documented as of this encounter Visit Diagnoses [...] 02/22/2025 documented in this encounter Care Teams Crepe Maker Relationship Specialty Start Date End Date Rodriguez Lindo [address] [place] [phone] PCP - General Clinic/Center - [facility] (COUNTS IN[facility] 234 BEDS AT THE [facility]) 12/03/16 Vane Hollingsworth MD [address] [place] [address] Internal Medicine-Hematology and Oncology 02/21/25 Moriah Woods, RN Registered Nurse Infusion Therapy 02/22/25 02/22/25 documented as of this encounter
--- OUTSIDE RECORDS SUMMARY | 2025-02-27 22:52 | XMS_ITS | Encounter Summary ---
Demographics Address [address] [phone] Mobile Phone Email Address Preferred Language en Marital Status Taoist Affiliation Unknown Race White Ethnic Group Not or Lati no Author Organization Healthcare Address [address] [place] [address] Care Team Providers Care College Football Coach Name Role Phone Pcp, No Primary Care Provider Unavailabl e Reason for Visit * Reason Comments Generalized Body Aches Pt states that oralia mayo is currently receiving chemo treatments, last treatment [...] EDT Emergency PAV S Emergency Department [address] [place] [address] García Matias MD [address] [place] [address] Cancer associated pain (Primary Dx) [...] Miscellaneous Notes * ED Notes - Dia Paagn - 02/28/2025 1:07 AM EDT IV line [...] of the emergency department without any difficulty. 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 Pt denies fever, chills, N/V/D, abdominal pain, urinary symptoms, headache, chest pain, SOA. History provided by: Patient alcoholism worker used: No Patient History Past Medical History[1] [...] The PDMP from February 28 2025 from [facility] were reviewed and found to be pertinent. [...] medications to the pharmacy Disposition Discharge AVS (Egyptian Snapshot) - Printed 02/28/2025 ED Prescriptions Medication [...] worsening. 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 Chemo last Friday-performed in [place], [place] (states she has a couple of [...] LAB HEMATOLOGY METHOD 02/27/2025 11:58 PM EDT [facility] Platelet Estimate Platelet smear estimate consistent with automated count LAB HEMATOLOGY METHOD 02/27/2025 11:58 PM EDT [facility] Blood Venous blood specimen / Unknown Venipuncture / Unknown 02/27/2025 11:23 PM EDT 02/27/2025 11:25 PM EDT us García Matias MD LAB BLOOD ORDERABLES Final Result [facility] [address] [place] [id number] * (ABNORMAL) Manual Differential (02/27/2025 11:23 PM EDT) Blasts % 0 % LAB HEMATOLOGY METHOD 02/27/2025 11:58 PM EDT [facility] Promyelocytes % 0 % LAB [...] LAB HEMATOLOGY METHOD 02/27/2025 11:58 PM EDT [facility] Promyelocytes Absolute 0.00 10*3/uL LAB [...] BLOOD ORDERABLES Final Result Performing Organization Address City/[facility]/ZIP Co de Phone Number [facility] [address] [place] [address] * hCG qualitative (02/27/2025 11:23 PM EDT) Test Negative Negative 02/27/2025 11:47 PM EDT [facility] Blood Venous blood specimen / Unknown Venipuncture / Unknown 02/27/2025 11:23 PM EDT 02/27/2025 11:25 PM EDT Narrative [facility] - 02/27/2025 11:47 PM EDT Reference Range: Males and non- females: Negative. García Matias MD LAB BLOOD ORDERABLES Final Result Performing Organization Address City/[facility]/ZIP Co de Phone Number [facility] [address] [place] [address] * Magnesium (02/27/2025 11:23 PM EDT) Magnesium, Plasma 2.2 1.9 - 2.4 mg/dL 02/27/2025 11:47 PM EDT [facility] Blood Venous blood specimen / Unknown Venipuncture / Unknown 02/27/2025 11:23 PM EDT 02/27/2025 11:25 PM EDT García Matias MD LAB BLOOD ORDERABLES Final Result Performing Organization Address City/[facility]/ZIP Co de Phone Number [facility] [address] [place] [address] * (ABNORMAL) CMP (02/27/2025 11:23 PM EDT) Glucose, Plasma 110(H) 74 - 99 mg/dL 02/27/2025 11:47 PM EDT [facility] BUN, Plasma 11 7 - 21 mg/dL 02/27/2025 11:47 PM EDT [facility] Creatinine, Plasma 0.80 0.60 - 1.10 mg/dL 02/27/2025 11:47 PM EDT [facility] BUN/Creatinine Ratio 14 02/27/2025 11:47 PM EDT [facility] Sodium, Plasma 142 136 - 145 mmol/L 02/27/2025 11:47 PM EDT [facility] Potassium, Plasma 4.5 3.6 - 4.9 mmol/L 02/27/2025 11:47 PM EDT [facility] Chloride, Plasma 105 97 - 107 mmol/L 02/27/2025 11:47 PM EDT [facility] CO2, Plasma 26 22 - 29 mmol/L 02/27/2025 11:47 PM EDT [facility] Anion Gap 11 6 - 16 mmol/L 02/27/2025 11:47 PM EDT [facility] Total Calcium, Plasma 9.3 8.9 - 10.2 mg/dL 02/27/2025 11:47 PM EDT [facility] Total Protein 6.1(L) 6.3 - 7.9 g/dL 02/27/2025 11:47 PM EDT [facility] Albumin, Plasma 3.9 3.5 - 5.2 g/dL 02/27/2025 11:47 PM EDT [facility] AST, Plasma 29 10 - 35 U/L 02/27/2025 11:47 PM EDT [facility] ALT, Plasma 27 10 - 35 U/L 02/27/2025 11:47 PM EDT [facility] Alkaline Phosphatase, Plasma 132(H) 35 - 104 U/L 02/27/2025 11:47 PM EDT [facility] Total Bilirubin, Plasma <0.2(L) 0.2 - 1.1 mg/dL 02/27/2025 11:47 PM EDT [facility] eGFRcr 95.1 mL/min/1.7 3m*2 02/27/2025 11:47 PM EDT [facility] Comment:Reported eGFRcr in m L/min/1.73m2 is based the CKD-EPI 2020 equation that does not use a race coefficient. Blood Venous blood specimen / Unknown Venipuncture / Unknown 02/27/2025 11:23 PM EDT 02/27/2025 11:25 PM EDT us García Matias MD LAB BLOOD ORDERABLES Final Result [facility] [address] [place] [address] * (ABNORMAL) CBC w/diff (02/27/2025 11:23 PM EDT) WBC Count 7.30 3.70 - 10.30 10*3/uL LAB HEMATOLOGY METHOD 02/27/2025 11:58 PM EDT [facility] RBC Count 3.21(L) 3.90 - 5.20 10*6/uL LAB HEMATOLOGY METHOD 02/27/2025 11:58 PM EDT [facility] HGB 9.9(L) 11.2 - 15.7 g/dL LAB HEMATOLOGY METHOD 02/27/2025 11:58 PM EDT [facility] HCT 29.9(L) 34.0 - 45.0 % LAB HEMATOLOGY METHOD 02/27/2025 11:58 PM EDT [facility] Platelet Count 230 155 - 369 10*3/uL LAB HEMATOLOGY METHOD 02/27/2025 11:58 PM EDT [facility] MCV 93 79 - 98 fL LAB HEMATOLOGY METHOD 02/27/2025 11:58 PM EDT [facility] MCH 30.8 26.0 - 32.0 pg LAB HEMATOLOGY METHOD 02/27/2025 11:58 PM EDT [facility] MCHC 33.1 30.7 - 35.5 g/dL LAB HEMATOLOGY METHOD 02/27/2025 11:58 PM EDT [facility] RDW 15.3(H) 11.5 - 14.5 % LAB HEMATOLOGY METHOD 02/27/2025 11:58 PM EDT [facility] MPV 10.4 8.8 - 12.5 fL LAB HEMATOLOGY METHOD 02/27/2025 11:58 PM EDT [facility] nRBC 1.9(H) <=0.0 per 100 WBCs LAB HEMATOLOGY METHOD 02/27/2025 11:58 PM EDT [facility] Differential Type Manual LAB HEMATOLOGY METHOD 02/27/2025 11:58 PM EDT [facility] Blood Venous blood specimen / Unknown Venipuncture / Unknown 02/27/2025 11:23 PM EDT 02/27/2025 11:25 PM EDT Narrative [facility] - 02/27/2025 11:58 PM EDT Therapeutic decision making should be based on absolute values, rather than percentages. us García Matias MD LAB BLOOD ORDERABLES Final Result [facility] [address] [place] [id number] documented in this encounter Visit Diagnoses Diagnosis [...] Pagan) documented in this encounter Care Teams College Football Coach Relationship Specialty Start Date End Date Pcp, No [address] [place] [address] PCP - General Family Medicine 02/07/25 documented as of this encounter
--- OUTSIDE RECORDS SUMMARY | 2025-03-16 08:12 | XMS_ITS | Encounter Summary ---
Author Organization [place] [address] Care Team Providers Care Motion And Time Study Teacher Name Role Phone Rodriguez Lindo Primary Care Provider +1- [phone] Vane Hollingsworth MD Unavailable +1- [phone] Giovanna Joseph RN Unavailable Unavailable Encounter Details Date Type Department Care Team (Latest Contact Info) Description 03/16/2025 8:12 AM EDT Hospital Encounter [facility] [address] Malignant neoplasm of overlapping sites [...] AM EDT Appointment [facility] [address] 04/15/2025 9:15 AM EDT [facility]ment [facility] [place] [address] Vane Hollingsworth MD [address] [place] [address] documented as of this encounter Procedures Procedure [...] - 145 mmol/L 03/16/2025 8:44 AM EDT [facility] Potassium 3.6 3.5 - 5.0 mmol/L 03/16/2025 8:44 AM EDT [facility] Chloride 109(H) 98 - 107 mmol/L 03/16/2025 8:44 AM EDT [facility] Total CO2 23 22 - 29 mmol/L 03/16/2025 8:44 AM EDT [facility] Anion Gap 12 7 - 16 mmol/L 03/16/2025 8:44 AM EDT [facility] Calcium 9.5 8.6 - 10.4 mg/dL 03/16/2025 8:44 AM EDT [facility] Glucose Lvl 83 70 - 99 mg/dL 03/16/2025 8:44 AM EDT [facility] BUN 20 6 - 20 mg/dL 03/16/2025 8:44 AM EDT [facility] Creatinine 0.73 0.51 - 1.30 mg/dL 03/16/2025 8:44 AM EDT [facility] Albumin 3.9 3.5 - 5.2 gm/dL 03/16/2025 8:44 AM EDT [facility] Total Protein 6.3(L) 6.4 - 8.3 gm/dL 03/16/2025 8:44 AM EDT [facility] Bili Total 0.2 0.2 - 1.3 mg/dL 03/16/2025 8:44 AM EDT [facility] ALT 12 <=41 U/L 03/16/2025 8:44 AM EDT [facility] AST 16 <=40 U/L 03/16/2025 8:44 AM EDT [facility] Alk Phos 81 36 - 123 U/L 03/16/2025 8:44 AM EDT [facility] eGFR (CKD-EPIcr 2020) 105 >=60 mL/min/1.7 3 m2 03/16/2025 8:44 AM EDT [facility] Comment:Estimated GFR was ca lculated using the CKD-EPIcr (2020) equation refit without race. The equation is recommended by the National Kidney Foundation - [place] [employer] of Nephrology Task Force. Blood VENOUS STRUCTURE / Unknown Medicare Port / Unknown 03/16/2025 8:20 AM EDT 03/16/2025 8:20 AM EDT us Vane Hollingsworth MD CHEMISTRY ORDERABLES Final Result [facility] [address] [place] [id number] * (ABNORMAL) CBC WITH DIFF (03/16/2025 8:20 AM EDT) WBC 10.6(H) 3.7 - 10.3 x10(3)/mc L 03/16/2025 8:27 AM EDT [facility] RBC 2.96(L) 3.90 - 5.20 x10(6)/mc L 03/16/2025 8:27 AM EDT [facility] Hgb 9.3(L) 11.2 - 15.7 g/dL 03/16/2025 8:27 AM EDT [facility] Hct 28.6(L) 34.0 - 45.0 % 03/16/2025 8:27 AM EDT [facility] MCV 96.6 80.0 - 100.0 fL 03/16/2025 8:27 AM EDT [facility] MCH 31.4 26.0 - 34.0 pg 03/16/2025 8:27 AM EDT [facility] MCHC 32.5 30.7 - 35.5 g/dL 03/16/2025 8:27 AM EDT [facility] RDW 16.8(H) <=14.9 % 03/16/2025 8:27 AM EDT [facility] Platelet 300 155 - 369 x10(3)/mc L 03/16/2025 8:27 AM EDT [facility] MPV 9.2 8.8 - 12.5 fL 03/16/2025 8:27 AM EDT [facility] Neut # Prelim 7.4(H) 1.6 - 6.1 x10(3)/mc L 03/16/2025 8:27 AM EDT [facility] Comment:Preliminary automate d absolute neutrophil count. Value may change if manual differential is indicated. Neut Percent 69.5 % 03/16/2025 8:27 AM EDT [facility] Comment:Neutrophils equals s egs plus bands Imm Gran% 0.2 % 03/16/2025 8:27 AM EDT [facility] Comment:Automated count of m etamyelocytes, myelocytes and promyelocytes. Lymph Percent 14.1 % 03/16/2025 8:27 AM EDT [facility] [place] Percent 15.6 % 03/16/2025 8:27 AM EDT [facility] Eos Percent 0.2 % 03/16/2025 8:27 AM EDT [facility] Baso Percent 0.4 % 03/16/2025 8:27 AM EDT [facility] Neut # 7.4(H) 1.6 - 6.1 x10(3)/mc L 03/16/2025 8:27 AM EDT [facility] Comment:Neutrophils equals s egs plus bands IMMGRAN# 0.0 0.0 - 0.1 x10(3)/mc L 03/16/2025 8:27 AM EDT [facility] Comment:Automated count of m etamyelocytes, myelocytes and promyelocytes. An absolute IG <0.1 is reported as 0.0. Lymph # 1.5 1.2 - 3.9 x10(3)/mc L 03/16/2025 8:27 AM EDT [facility] [place] # 1.7(H) 0.3 - 0.9 x10(3)/mc L 03/16/2025 8:27 AM EDT [facility] Eos# 0.0 0.0 - 0.5 x10(3)/mc L 03/16/2025 8:27 AM EDT [facility] Baso # 0.0 0.0 - 0.1 x10(3)/mc L 03/16/2025 8:27 AM EDT [facility] Blood VENOUS STRUCTURE / Unknown Medicare Port / Unknown 03/16/2025 8:20 AM EDT 03/16/2025 8:20 AM EDT us Vane Hollingsworth MD HEMATOLOGY ORDERABLE S Final Result [facility] [address] [place] [address] documented in this encounter Visit Diagnoses Diagnosis [...] 03/16/2025 documented in this encounter Care Teams Motion And Time Study Teacher Relationship Specialty Start Date End Date [facility] [address] [place] [phone] PCP - General Clinic/Center - [facility] ([facility]) 12/03/16 Vane Hollingsworth MD [address] [place] [address] Internal Medicine-Hematology and Oncology 02/21/25 Giovanna Joseph, RN Registered Nurse Infusion Therapy 03/16/25 03/16/25 documented as of this encounter
--- OUTSIDE RECORDS SUMMARY | 2025-03-16 08:13 | XMS_ITS | Encounter Summary ---
Author Organization [place] [address] Care Team Providers Care Brand Sales Manager Name Role Phone Rodriguez Lindo Primary Care Provider +1- [phone] Vane Hollingsworth MD Unavailable +1- [phone] Giovanna Joseph RN Unavailable Unavailable Reason for Visit * Oncology Medication Prior Authorization (Routine) - Authorized Specialty Diagnoses / Procedures Referred By Contac t Referred To Contact Diagnoses Malignant neoplasm of overlapping sites of left breast in female, estrogen receptor positive (HCC) Procedures ONCOLOGY MEDICATION AUTHORIZATION Vane Hollingsworth MD [address] [place] [address] Phone: tel: fax: Vane Hollingsworth MD [address] [place] [address] Phone: tel: fax: Referral ID Status Reason Start Date Expiration Date V isits Requested Visits Authorized [id number] Authorized 01/21/2025 01/21/2026 1 6 Encounter Details Date Type Department Care Team (Latest Contact Info) Description 03/16/2025 8:13 AM EDT - 03/16/2025 8:21 AM EDT Hospital Encounter [facility] [address] Malignant neoplasm of overlapping sites [...] Joseph RN - 03/16/2025 9:00 AM EDT [facility] Discharge Instructions Thank you for [...] infection DON'T WAIT, PLEASE CALL US FIRST [phone]. [FOR URGENT ISSUES PLEASE DO NOT LEAVE A MESSAGE, FOLLOW PROMPTS TO THE DOCTOR HOME FURNISHINGS SALES REPRESENTATIVE] For Gynecology / Oncology call : [phone] Our hours of operation are Friday - Friday 8:00 AM - 4:30 PM. [facility] [address] [place] [address] [phone] [address] Results for orders placed or performed during [...] Gran% 0.2 % Lymph Percent 14.1 % [place] Percent 15.6 % Eos Percent 0.2 % Baso Percent 0.4 % Neut # 7.4 (H) 1.6 - 6.1 x10(3)/mcL IMMGRAN# 0.0 0.0 - 0.1 x10(3)/mcL Lymph # 1.5 1.2 - 3.9 x10(3)/mcL [place] # 1.7 (H) 0.3 - 0.9 x10(3)/mcL [...] AM EDT Appointment [facility] [place], [place] [phone] 04/15/2025 9:15 AM EDT [facility]ointment [facility] [place], [place] [id number] Vane Hollingsworth MD [address] [place] [address] [phone] documented as of this encounter Visit Diagnoses [...] at 0930, Until Fri03/17/25 at 0410, For commercial lines account manager during chemotherapy infusion., Dx: 1. Malignant neoplasm [...] mL documented in this encounter Care Teams Brand Sales Manager Relationship Specialty Start Date End Date [facility] [place] [facility] [address] [place] [phone] PCP - General Clinic/Center - [facility] ([facility]) 12/03/16 Vane Hollingsworth MD [address] [place] [address] Internal Medicine-Hematology and Oncology 02/21/25 Giovanna Joseph, RN Registered Nurse Infusion Therapy 03/16/25 03/16/25 documented as of this encounter
--- OUTSIDE RECORDS SUMMARY | 2025-03-16 08:22 | XMS_ITS | Encounter Summary ---
Author Organization [place] [address] Care Team Providers Care Slip Tender Name Role Phone Rodriguez Lindo Primary Care Provider +1- [phone] Vane Hollingsworth MD Unavailable +1- [phone] Giovanna Joseph RN Unavailable Unavailable Reason for Visit * Reason Comments Follow-up Breast Cancer Malignant neoplasm o f overlapping sites of left breast in female, estrogen receptor positive Chemotherapy Encounter Details Date Type Department Care Team (Latest Contact Info) Description 03/16/2025 8:22 AM EDT - 03/16/2025 11:59 PM EDT Hospital Encounter Cancer Care Medical Oncology [place] [id number] Ana Rosa Del Angel, LEAD INSPECTOR [address] [place] [address] Malignant neoplasm of overlapping sites of left [...] Progress Notes * Jama Del Angeli Erlinda, LEAD INSPECTOR - 03/16/2025 8:30 AM EDT Images from the original note were not included. Patient: Anne Kearney CSN: [id number] Date of : 1985 Age: 40 y.o. Date of Service: 03/16/2025 HEMATOLOGY/ONCOLOGY FU PATIENT OFFICE NOTE CURRENT TREATMENT: 12/15/2024 - TC X 4 (first cycle given in [place]) Outside oncology history: Diagnosis Invasive lobular carcinoma, 2 o'clock left breast, Jul 2024 Grade 2 ER 76%, [place] 24%, HER-2 0/negative, Ki67 13% Stage IIB; pT2, pN1a Oncotype DX recurrence score: [address] [facility] BRCA 1/2 CancerNext genetic test: Positive pathogenic mutation detected: BRCA2 History Hepatitis C-treated Treatment Summary 07/29/24 Bilateral mastectomies with positive (09/13) left axillary SLNB by Dr Giovanna Tolentino/[facility] General Surgery 08/16/24 Initiated endocrine hormone therapy with Tamoxifen 20mg daily by Dr Oliverio Prescott/[facility] Medical Oncology 10/01/24 Prophylactic total hysterectomy with bilateral salpino-oophorectomy by Dr Ministerio Gamino/[facility] 10/11/24 - 12/01/24 Completed adjuvant radiation therapy with 5040cGy over 28 fractions to left breastby Dr Angelito Pierson/[facility] Radiation Oncology 10/18/24 Discontinue Tamoxifen. Initiate Letrozole 2.5mg daily by Dr Oliverio Prescott/[facility] Medical Oncology. 12/15/24 Taxotere, Cyclophosphamide + GCSF every for 3 weeks x4 cycles Cancer History 06/14/24 Bilateral screening mammogram ([facility]): No suspicious mammographic findings in the RIGHT breast. LEFT breast 4 mm focal asymmetry in the middle to posterior third, outer central breast, 3 o'clock position, 5 cm from the nipple on cc view. 06/14/24 Transvaginal US ([facility]): Physiologic appearance of the uterus and RIGHT [...] nipple, core needle biopsies: Invasive lobular carcinoma. [place] histologic score Glandular differentiation: Score 3. Nuclear [...] (1/6) left axillary SLNB by Dr Giovanna Tolentino/[facility] General Surgery 07/29/24 Left breast, [...] with Tamoxifen 20mg daily by Dr Oliverio Prescott/[facility] Medical Oncology 08/16/24 [facility] labs: CEA 3.75, CA 27-29 14; CBC-WBC 14.6; ANC 8.7; ALC 4.2; Hgb 12.1; MCV 88.9; platelets 361,000; CMP WNL; ferritin 19, iron 34, fe sat 7% 08/18/24 CT chest ([facility]): No evidence of metastatic disease in the chest. Postoperative change of bilateral mastectomy. 08/18/24 CT abd/pelvis ([facility]): No evidence of metastatic disease in the abdomen or pelvis. 08/18/24 Bone scan ([facility]): No evidence of osteoblastic metastatic disease by bone scan. 08/30/24 Oncotype DX recurrence score: 17 09/16/[address] Angelito Pierson/[facility] Radiation Oncology who recommended adjuvant radiation therapy with 5040 cGy over 28 fractions to left breast/left chest wall [facility] chemotherapy. 09/20/[address] Oliverio Prescott/[facility] Medical Oncology who recommended referral to EXTENDER for prophylactic hysterectomy due to positive BRCA2 gene, to proceed with [facility], to proceed with radiation therapy after [facility] consult and adjuvant Taxotere 75mg/m2, Cyclophosphamide 600mg/m2 every 3 weeks x4 cycles, but to hold until [facility] consult completed. 09/23/[address] Lit Sheets/[facility] Breast Medical Oncology who recommended adjuvantTaxotere Cyclophosphamide x4 cycles followed by adjuvant Aromatase inhibitor + Ribociclib + Zometa. 09/27/24 Bone density ([facility]): Normal 10/01/24 Prophylactic total hysterectomy with bilateral sal[facility]/01/24 Uterus, cervix, bilateral tubes and ovaries, hysterectomy and bilateral salpingo-oophorectomy: Chronic cervicitis. Proliferative endometrium. Endometrial polyp. Adenomyosis. Completely transected right and left fallopian tubes and unremarkable fimbrial epithelial surface. Mesonephric cyst associated both left and right fallopian tubes. Corpora albicantia of right ovary.Corpora albicantia and 1 corpus hemorrhagicum of left ovary. Uterine weight of 141.7 g. 10/03/24 CT abd/pelvis ([facility]): Moderate pneumoperitoneum with scattered extraperitoneal [...] fractions to left breast by Dr Angelito Pierson/[facility] Radiation Oncology 10/18/24 Follow-up evaluation with Dr Oliverio Prescott/[facility] Medical Oncology who recommended to discontinue Tamoxifen, initiate Letrozole 2.5mg daily and to anticipate adjuvant Taxotere 75mg/m2, Cyclophosphamide 600mg/m2 every 3 weeks x4 cycles 10/18/24 Discontinue Tamoxifen. Initiate Letrozole 2.5mg daily by Dr Oliverio Prescott/[facility] Medical Oncology 11/03/24 CT chest ([facility]): No acute abnormality in the chest. 11/03/24 US venous doppler upper right extremity ([facility]): There is no evidence of deep venous thrombosis of the right upper extremity. There is partial nonocclusive superficial thrombus in the cephalic vein. 12/01/24 Completed adjuvant radiation therapy with 5040cGy over 28 fractions to left breast by Dr Angelito Pierson/[facility] Radiation Oncology 12/15/24 First dose of TC HISTORY OF PRESENT ILLNESS: CC: Chief Complaint Patient presents with Follow-up Breast Cancer Malignant neoplasm of overlapping sites of left breast in female, estrogen receptor positive Chemotherapy Patient is a 40 y.o. female who presents for breast cancer follow up and treatment. First dose of TC in [facility] and moved locally and here to continue her treatment Here for cycle #4 TC Got established with new PCP Dr. Garza in [place] and was given pain medication at visit 03/02, did not go visit on 03/[address] Neves in [place]. Plan to not continue following with Edinson [...] visit on 03/[address] Neves in [place] -got scheduled with new PCP in [place] 03/03 who refilled her pain medication but [...] Del Angel APRN Hematology and Medical Oncology [facility] documented in this encounter Plan of Treatment Upcoming Encounters Date Type Department Care Team (Late st Contact Info) Description 04/15/2025 8:45 AM EDT Appointment [place] [address] 04/15/2025 9:15 AM EDT Appointment [facility] [place] [address] Vane Hollingsworth MD [address] [place] [address] Scheduled Orders Name Type Priority Associated Diagnoses [...] chemotherapy documented in this encounter Care Teams Slip Tender Relationship Specialty Start Date End Date [facility] [address] [place] [phone] PCP - General Clinic/Center - [facility] ([facility]) 12/03/16 Vane Hollingsworth MD [address] [place] [address] Internal Medicine-Hematology and Oncology 02/21/25 Giovanna Joseph, RN Registered Nurse Infusion Therapy 03/16/25 03/16/25 documented as of this encounter
--- OUTSIDE RECORDS SUMMARY | 2025-03-16 16:56 | XMS_ITS | Encounter Summary ---
Demographics Address [address] [place] [address] Mobile Phone Email Address Preferred Language en Marital Status Jainism Affiliation Unknown Race White Ethnic Group Not or Lati no Author Organization Healthcare Address [address] [place] [address] Care Team Providers Care Estimator And Drafter Supervisor Name Role Phone Pcp, No Primary Care Provider Unavailabl e Encounter Details Date Type Department Care Team (Late st Contact Info) Description 03/16/2025 4:56 PM EDT - 03/16/2025 5:25 PM EDT Emergency [facility] Emergency Department [address] [place] [address] Discharge Disposition: Left WIthout Being Seen Social History Tobacco Use Types Packs/Day Years Used Date Smoking Tobacco: Former Cigarettes S tarted: 1997 Smokeless Tobacco: Never Alcohol Use Standard Drinks/Week Comments Never 0 [...] tablet 02/28/2025 documented as of this encounter Plan of Treatment Not on file documented as of this encounter Visit Diagnoses Not on filedocumented in this encounter Care Teams Estimator And Drafter Supervisor Relationship Specialty Start Date End Date Pcp, No [address] [place] [address] PCP - General Family Medicine 02/07/25 documented as of this encounter
--- OUTSIDE RECORDS SUMMARY | 2025-03-18 09:30 | XMS_ITS | Encounter Summary ---
Author Organization [place] [address] Care Team Providers Care Cafeteria Monitor Name Role Phone Rodriguez Lindo Primary Care Provider +1- [phone] Vane Hollingsworth MD Unavailable [phone]- [phone] Reason for Visit * Oncology Medication Prior Authorization (Routine) - Authorized Specialty Diagnoses / Procedures Referred By Contac t Referred To Contact Diagnoses Malignant neoplasm of overlapping sites of left breast in female, estrogen receptor positive (HCC) Procedures ONCOLOGY MEDICATION AUTHORIZATION Vane Hollingsworth MD [address] [place] [address] Phone: tel: fax: Vane Hollingsworth MD [address] [place] [address] Phone: tel: fax: Referral ID Status Reason Start Date Expiration Date V isits Requested Visits Authorized [id number] Authorized 01/21/2025 01/21/2026 1 6 Encounter Details Date Type Department Care Team (Latest Contact Info) Description 03/18/2025 9:30 AM EDT - 03/18/2025 11:59 PM EDT Hospital Encounter [facility] [...] Sign Reading Time Taken Comments Blood Pressure 128/61 03/18/2025 9:39 AM EDT Pulse 72 03/18/2025 9:39 AM EDT Temperature 36.6 C (97.9 F) 03/18/2025 9:39 AM EDT Respiratory Rate 20 03/18/2025 9:39 AM EDT Oxygen Saturation 100% 03/18/2025 9:39 AM EDT Inhaled Oxygen Concentration - - [...] encounter Miscellaneous Notes * Patient Instructions - Kayley Landa RN - 03/18/2025 9:30 AM EDT [facility] Discharge Instructions Thank you for entrusting the [facility] with your care. We hope you [...] infection DON'T WAIT, PLEASE CALL US FIRST [phone]. [FOR URGENT ISSUES PLEASE DO NOT LEAVE A MESSAGE, FOLLOW PROMPTS TO THE DOCTOR LIP CUTTER] For Gynecology / Oncology call : [phone] Our hours of operation are Friday - Friday 8:00 AM - 4:30 PM. [facility] [id number] [place] [address] [phone] [id number] No results found for any visits on 03/18/25. documented in this encounter Plan of Treatment Upcoming Encounters Date Type Department Care Team (Late st Contact Info) Description 04/15/2025 8:45 AM EDT Appointment [facility] [place], [place] [id number] 04/15/2025 9:15 AM EDT [facility]ointment [facility] [place], [place] [id number] Vane Hollingsworth MD [address] [place] [address] [id number] documented as of this encounter Visit Diagnoses Diagnosis Malignant neoplasm of overlapping sites of left breast in female, estrogen receptor positive (HCC)- Primary documented in this encounter Administered Medications Inactive Administered Medications - up to 1 most recent administrations Medication Order MAR Action Action Date Dose Rate Site pegfilgrastim-apgf (NYVEPRIA) injection 6 mg 6 mg, Subcutaneous, ONCE, 1 dose, On Fri03/18/25 at 0945, Please Select Indication: Dose-Dense regimen, Dx: 1. Malignant neoplasm of overlapping sites of left breast in female, estrogen receptor positive (HCC)Indications:Malignant neoplasm of overlapping sites of left breast in female, estrogen receptor positive (HCC) Given 03/18/2025 9:50 AM EDT 6 mg Right Arm documented in this encounter Orders Medications Ordered That Jose Angel ht Not Have Been Administered Count Last Ordered Date First Ordered Date pegfilgrastim-apgf (NYVEPRIA ) injection 6 mg 1 03/18/2025 documented in this encounter Care Teams Cafeteria Monitor Relationship Specialty Start Date End Date Rodriguez Lindo [address] [place] [id number] PCP - General Clinic/Center - [facility] ([facility]) 12/03/16 Vane Hollingsworth MD [address] [place] [address] Internal Medicine-Hematology and Oncology 02/21/25 documented as of this encounter
--- OUTSIDE RECORDS SUMMARY | 2025-03-19 00:14 | XMS_ITS | Encounter Summary ---
Demographics Address [address] [place] [address] Mobile Phone Email Address Preferred Language en Marital Status Confucianist Affiliation Unknown Race White Ethnic Group Not or Lati no Author Organization Healthcare Address [address] [place] [address] Care Team Providers Care Globe Mounter Name Role Phone Pcp, No Primary Care Provider Unavailabl e Reason for Visit * Reason Comments Pain Management Encounter Details Date Type Department Care Team (Late st Contact Info) Description 03/19/2025 12:14 AM EDT - 03/19/2025 2:48 AM EDT Emergency [facility] Emergency Department [address] [place] [address] Fish Carranza MD [address] [place] [address] Cancer associated pain (Primary Dx); Hypokalemia Discharge Disposition: Home or Self Care Social [...] Sign Reading Time Taken Comments Blood Pressure 103/65 03/19/2025 12:09 AM EDT Pulse 86 03/19/2025 12:09 AM EDT Temperature 36.5 C (97.7 F) 03/19/2025 12:09 AM EDT Respiratory Rate 18 03/19/2025 2:05 AM EDT Oxygen Saturation 98% 03/19/2025 12:09 AM EDT Inhaled Oxygen Concentration - - Weight 84 kg (185 lb 3 oz) 03/19/2025 1:01 AM ED T Height 167.6 cm (5' 6 ) 03/19/2025 1:01 AM EDT Body Mass Index 29.89 03/19/2025 1:01 AM EDT documented in this encounter Functional Status * Calculated C-SSRS Risk Score (Lifetime/Recent) Answer Date of Assessment Author No Risk Indicated 03/19/2025 12:58 AM EDT Iza Murillo * Question Answer Date of Assessment Author 1. Wish to be (Past 1 Month) No 025 12:58 AM EDT Iza Murillo 2. Non-Specific Active Suici cyndie Thoughts (Past 1 Month) No 03/19/2025 12:58 AM EDT Iza Murillo 6. Suicidal Behavior (Lifetime) No 12:58 AM EDT Iza Murillo documented as of this encounter Medications at Time of Discharge oxyCODONE (Roxicodone) 5 MG immediate release tablet Take 1 tablet by mouth every 8 hours as needed (pain). 10 tablet 02/28/2025 documented as of this encounter Miscellaneous Notes * ED Provider Notes - Fish Carranza MD - 03/19/2025 12:03 AM EDT - HPI Chief Complaint Patient presents with Pain Management Anne Kearney is a 40 y.o. female with a past medical history significant for breast cancer who presents today via private vehicle with Pain Management. Pt c/o worsening generalized pain and lightheadedness x 1 week since starting work again. Pt states she is undergoing chemotherapy for breast cancer, reports she receives chemo every 3 weeks and last round received was more than the amounts she normally receives because it was the final round. Pt reports hx of presenting to ED for IV fluids and pain medications when sx have occurred in the past. Patient denies fever, chills, CP, SOA, N/V/D. Patient has no other complaints at this time. History provided by: Patient interpreter for the deaf used: No Patient History Past Medical History[1] Surgical History[2] Family History[3] Social History[4] Allergies: Allergies[5] Physical Exam ED Triage Vitals [03/19/25 0009] Temp Heart Rate Resp BP 36.5 ??C (97.7 ??F) 86 18 103/65 SpO2 Temp Source Heart Rate Source Patient Position 98 % Oral -- Sitting BP Location FiO2 (%) Right arm -- Physical Exam Constitutional: General: She is not in acute distress. HENT: Head: Normocephalic. Comments: No facial swelling Mouth/Throat: Mouth: Mucous membranes are moist. Pharynx: Oropharynx is clear. Cardiovascular: Rate and Rhythm: Normal rate. Pulmonary: Effort: Pulmonary effort is normal. No respiratory distress. Breath sounds: Normal air entry. Comments: Speaking full sentences. Symmetric chest rise Abdominal: General: There is no distension. Musculoskeletal: General: No deformity. Normal range of motion. Cervical back: Normal range of motion. Comments: Atraumatic, moves all extremities spontaneously Neurological: Mental Status: She is alert. Mental status is at baseline. Comments: Awake Psychiatric: Behavior: Behavior normal. No data recorded ED Course & MDM - Assessment: 40 y.o. female presents to ED with complaint of Pain. It should be noted that the chronic conditions includes breast cancer, which currently is not at goal therapy. This complicates the clinical picture because it Comorbidities: may be exacerbating symptoms, complicates the clinical workup, and increases the risk for morbidity In order to fully explore the differential diagnosis the following treatments and tests were ordered: ED Medication Administration from 03/19/2025 0003 to 03/19/2025 0229 Date/Time Order Dose Route Action 03/19/2025 0052 EDT HYDROmorphone (Dilaudid) injection 1 mg 1 mg Intravenous Given 03/19/2025 0053 EDT lactated Ringer's infusion 1,000 mL 1,000 mL Intravenous New Bag 03/19/2025 0053 EDT ondansetron (Zofran) injection 4 mg 4 mg Intravenous Given 03/19/2025 0200 EDT HYDROmorphone (Dilaudid) injection 1 mg 1 mg Intravenous Given 03/19/2025 0200 EDT potassium chloride CR (Klor-Con) ER tablet 20 mEq 20 mEq Oral Given 03/19/2025 022 EDT lactated Ringer's infusion 1,000 mL 0 mL Intravenous Stopped All Other Orders Ordered Status Ordering Provider 03/19/2518 BMP STAT Final result FISH CARRANZA 03/19/2518 CBC w/diff STAT Final result FISH CARRANZA 03/19/2518 Lactic acid, venous STAT Final result FISH CARRANZA ED Course as of 03/19/25228 Sat Mar 19, 2025115 WBC(!): 41.22 No isgns of infection to exam. Possible medication affect with changed regimine. Rec to pt for onc follow up at this time. [ER] 0117 Lactate: 1.2 [ER] 0117 Hemoglobin(!): 9.5 baseline [ER] 0137 Potassium(!): 3.2 Will replace [ER] 0137 BUN(!): 22 [ER] 0137 Creatinine: 0.92 [ER] ED Course User Index [ER] Fish Carranza MD Clinical Impressions as of 03/19/25228 Hypokalemia Cancer associated pain Pain c/w her typical post chemo course. Reassuring exam. Unclear etiology of leukocytosis, but patient feeling much improved and has follow up for a recheck. DCD Ultimately, this patient was Was discharged Home (Discharge) The primary encounter diagnosis was Cancer associated pain. A diagnosis of Hypokalemia was also pertinent to this visit. . Patient was counseled on the diagnoses. Discharge medications ifany are listed below. Listed medications are thought be either curative for listed diagnoses or will help control ongoing symptoms. Patient is requested to follow up with Patient's Primary Care Provider in order to obtain routine follow-up. Instructions on follow up as well as precautions to returnto the ER provided verbally by the EM provider, as well as written in patients discharge education packet. ED Prescriptions None Disposition Discharge - Date/Time: 03/19/2025/2:29 AM Entered by Kevin Montgomery, acting as scribe for Fish Almaraz MD. Scribe Attestation: This note was dictated to me, Kevin Montgomery, acting as a scribe for Fish Almaraz MD. Attending Attestation: The documentation was recorded by Kevin Montgomery acting as scribe in my presence at the time of the encounter and accurately reflects the service I personally performed. [1] Past Medical History: Diagnosis Date Breast cancer [2] No past surgical history on file. [...] and Rash unknown Tramadol Itching and Rash Fish Carranza MD 03/19/25 0231 * ED Triage Notes - Tisha Cesar RN - 03/19/2025 12:03 AM EDT Pt reports getting chemo done and is now having pain everywhere. documented in this encounter Plan of Treatment Not on file documented as of this encounter Procedures Procedure Name Priority Date/Time Associated Diagnosis Comments LACTATE, VENOUS STAT 03/19/2025 12:52 AM EDT CBC WITH AUTO DIFFERENTIAL STAT 03/19/2025 12:52 AM EDT BASIC METABOLIC PANEL, PLASMA STAT 03/19/2025 12:52 AM EDT documented in this encounter Results * Lactic acid, venous (03/19/2025 12:52 AM EDT) Lactate, Venous, Whole Blood 1.2 0.5 - 2.2 mmol/L LAB HEMATOLOGY METHOD 03/19/2025 1:09 AM EDT [facility] Blood Venous blood specimen / Unknown Venipuncture / Unknown 03/19/2025 12:52 AM EDT 03/19/2025 1:07 AM EDT us Fish Carranza MD LAB BLOOD ORDERABLES Final Resul t [facility] [address] [place] [address] * (ABNORMAL) CBC w/diff (03/19/2025 12:52 AM EDT) WBC Count 41.22(H) 3.70 - 10.30 10*3/uL LAB HEMATOLOGY METHOD 03/19/2025 1:12 AM EDT [facility] RBC Count 3.12(L) 3.90 - 5.20 10*6/uL LAB HEMATOLOGY METHOD 03/19/2025 1:12 AM EDT [facility] HGB 9.5(L) 11.2 - 15.7 g/dL LAB HEMATOLOGY METHOD 03/19/2025 1:12 AM EDT [facility] HCT 29.0(L) 34.0 - 45.0 % LAB HEMATOLOGY METHOD 03/19/2025 1:12 AM EDT [facility] Platelet Count 301 155 - 369 10*3/uL LAB HEMATOLOGY METHOD 03/19/2025 1:12 AM EDT [facility] MCV 93 79 - 98 fL LAB HEMATOLOGY METHOD 03/19/2025 1:12 AM EDT [facility] MCH 30.4 26.0 - 32.0 pg LAB HEMATOLOGY METHOD 03/19/2025 1:12 AM EDT [facility] MCHC 32.8 30.7 - 35.5 g/dL LAB HEMATOLOGY METHOD 03/19/2025 1:12 AM EDT [facility] RDW 16.6(H) 11.5 - 14.5 % LAB HEMATOLOGY METHOD 03/19/2025 1:12 AM EDT [facility] MPV 10.1 8.8 - 12.5 fL LAB HEMATOLOGY METHOD 03/19/2025 1:12 AM EDT [facility] nRBC 0.0 <=0.0 per 100 WBCs LAB HEMATOLOGY METHOD 03/19/2025 1:12 AM EDT [facility] Differential Type Automated LAB HEMATOLOGY METHOD 03/19/2025 1:12 AM EDT [facility] Neutrophils % 95 % LAB HEMATOLOGY METHOD 03/19/2025 1:12 AM EDT [facility] Lymphocytes % 2 % LAB HEMATOLOGY METHOD 03/19/2025 1:12 AM EDT [facility] Monocytes % 1 % LAB HEMATOLOGY METHOD 03/19/2025 1:12 AM EDT [facility] Eosinophils % 0 % LAB HEMATOLOGY METHOD 03/19/2025 1:12 AM EDT [facility] Basophils % 0 % LAB HEMATOLOGY METHOD 03/19/2025 1:12 AM EDT [facility] Immature Granulocytes % 2 % LAB HEMATOLOGY METHOD 03/19/2025 1:12 AM EDT [facility] Neutrophils Absolute 39.07(H) 1.60 - 6.10 10*3/uL LAB HEMATOLOGY METHOD 03/19/2025 1:12 AM EDT [facility] Lymphocytes Absolute 0.81(L) 1.20 - 3.90 10*3/uL LAB HEMATOLOGY METHOD 03/19/2025 1:12 AM EDT [facility] Monocytes Absolute 0.34 0.30 - 0.90 10*3/uL LAB HEMATOLOGY METHOD 03/19/2025 1:12 AM EDT [facility] Eosinophils Absolute 0.02 0.00 - 0.50 10*3/uL LAB HEMATOLOGY METHOD 03/19/2025 1:12 AM EDT [facility] Basophils Absolute 0.08 0.00 - 0.10 10*3/uL LAB HEMATOLOGY METHOD 03/19/2025 1:12 AM EDT [facility] Immature Granulocytes Absolute 0.90(H) 0.00 - 0.06 10*3/uL LAB HEMATOLOGY METHOD 03/19/2025 1:12 AM EDT [facility] Blood Venous blood specimen / Unknown Venipuncture / Unknown 03/19/2025 12:52 AM EDT 03/19/2025 1:08 AM EDT Narrative [facility] - 03/19/2025 1:12 AM EDT Therapeutic decision making should be based on absolute values, rather than percentages. us Fish Carranza MD LAB BLOOD ORDERABLES Final Resul t [facility] [address] [place] [address] * (ABNORMAL) BMP (03/19/2025 12:52 AM EDT) [facility] Glucose, Plasma 79 74 - 99 mg/dL 03/19/2025 1:31 AM EDT [facility] BUN, Plasma 22(H) 7 - 21 mg/dL 03/19/2025 1:31 AM EDT [facility] Creatinine, Plasma 0.92 0.60 - 1.10 mg/dL 03/19/2025 1:31 AM EDT [facility] BUN/Creatinine Ratio 24 03/19/2025 1:31 AM EDT [facility] Sodium, Plasma 143 136 - 145 mmol/L 03/19/2025 1:31 AM EDT [facility] Potassium, Plasma 3.2(L) 3.6 - 4.9 mmol/L 03/19/2025 1:31 AM EDT [facility] Chloride, Plasma 110(H) 97 - 107 mmol/L 03/19/2025 1:31 AM EDT [facility] CO2, Plasma 21(L) 22 - 29 mmol/L 03/19/2025 1:31 AM EDT [facility] Anion Gap 12 6 - 16 mmol/L 03/19/2025 1:31 AM EDT [facility] Total Calcium, Plasma 8.4(L) 8.9 - 10.2 mg/dL 03/19/2025 1:31 AM EDT [facility] eGFRcr 80.4 mL/min/1.7 3m*2 03/19/2025 1:31 AM EDT [facility] Comment:Reported eGFRcr in m L/min/1.73m2 is based the CKD-EPI 2020 equation that does not use a race coefficient. Blood Venous blood specimen / Unknown Venipuncture / Unknown 03/19/2025 12:52 AM EDT 03/19/2025 1:07 AM EDT us Fish Carranza MD LAB BLOOD ORDERABLES Final Resul t [facility] [address] [place] [address] documented in this encounter Visit Diagnoses Diagnosis Cancer associated pain- Primary Neoplasm related pain (acute) (chronic) Hypokalemia Hypopotassemia documented in this encounter Administered Medications Inactive Administered Medications - up to 3 most recent administrations Medication Order MAR Action Action Date Dose Rate Site HYDROmorphone (Dilaudid) injection 1 mg 1 mg, Intravenous, Once, 1 dose, On 03/19/25 at 0020, Routine Given 03/19/2025 12:52 AM EDT 1 mg HYDROmorphone (Dilaudid) injection 1 mg 1 mg, Intravenous, Once, 1 dose, On 03/19/25 at 0145, Routine Given 03/19/2025 2:00 AM EDT 1 mg lactated Ringer's infusion 1,000 mL 1,000 mL, Intravenous, Once, 1 dose, On 03/19/25 at 0020, STAT New Bag 03/19/2025 12:53 AM EDT 1,000 mL ondansetron (Zofran) injection 4 mg 4 mg, Intravenous, Once, 1 dose, On 03/19/25 at 0020, STAT Given 03/19/2025 12:53 AM EDT 4 mg potassium chloride CR (Klor-Con) ER tablet 20 mEq 20 mEq, Oral, Once, 1 dose, On 03/19/25 at 0145, Routine Given 03/19/2025 2:00 AM EDT 20 mEq documented in this encounter Active and Recently Administered Medications Times are shown in EDT. Scheduled Medication Order 03/17/2025 03/18/2025 03/19/2025 HYDROmorphone (Dilaudid) injection 1 mg (COMPLETED) 1 mg, Intravenous, Once, 1 dose, On 03/19/25 at 0020, Routine 0052 (Given - Provid er: Iza Murillo) HYDROmorphone (Dilaudid) injection 1 mg (COMPLETED) 1 mg, Intravenous, Once, 1 dose, On 03/19/25 at 0145, Routine 0200 (Given - Provid er: Iza Murillo) lactated Ringer's infusion 1,000 mL (COMPLETED) 1,000 mL, Intravenous, Once, 1 dose, On 03/19/25 at 0020, STAT 0053 (New Bag - Prov ider: Iza Murillo)0224 (Stopped - Provider: Iza Murillo) ondansetron (Zofran) injection 4 mg (COMPLETED) 4 mg, Intravenous, Once, 1 dose, On 03/19/25 at 0020, STAT 0053 (Given - Provid er: Iza Murillo) potassium chloride CR (Klor-Con) ER tablet 20 mEq (COMPLETED) 20 mEq, Oral, Once, 1 dose, On 03/19/25 at 0145, Routine 0200 (Given - Provid er: Iza Murillo) documented in this encounter Care Teams Globe Mounter Relationship Specialty Start Date End Date Pcp, [place] [address] PCP - General Family Medicine 02/07/25 documented as of this encounter
[2025-03-21] VITALS (7 sets, daily range): BP systolic 119–139; BP diastolic 56–87; PULSE 88–99; RESP 16–18; TEMP 36.7–36.9; O2SAT 95–98; BMI 28.2
--- OUTSIDE RECORDS SUMMARY | 2025-03-21 01:02 | XMS_ITS | Encounter Summary ---
Author Organization [place] [address] Care Team Providers Care Pet Handler Name Role Phone Rodriguez Lindo Primary Care Provider +1- [phone] Vane Hollingsworth MD Unavailable +1- [phone] Reason for Visit * Reason Comments Pain Pt reports Breast CA and currently receiving chemo treatments. Pt decided she could return to work. Worked today and is in pain all over, pt c/o of significant pain in joints. Encounter Details Date Type Department Care Team (Late st Contact Info) Description 03/21/2025 1:02 AM EDT - 03/21/2025 2:20 AM EDT Emergency [facility] [place] [address] Lupe Finney MD [address] [place] [phone] Chest pain, unspecified type (Primary Dx); [...] 1:48 AM EDT Regina Olsen RN * [place] Suicide Severity Rating Scale (Q shift for [...] Medical Advice Home documented in this encounter Plan of Treatment Upcoming Encounters Date Type Department Care Team (Late st Contact Info) Description 04/15/2025 8:45 AM EDT Appointment [place] [address] 04/15/2025 9:15 AM EDT [facility]ointment [facility] [place] [address] Vane Hollingsworth MD [address] [place] [phone] Pending Results Name Type Priority Associated Diagnoses Date /Time EK EKG 12 LEAD Imaging Cardiology STAT 1:40 AM EDT Scheduled Orders Name Type Priority Associated Diagnoses Orde r Schedule CT ANGIOGRAM PULMONARY W CONTRAST Imaging STAT One time imaging for 1 Occurrences starting 03/21/2025 until 03/21/2025 TROPONIN-T HIGH SENSITIVITY 2HR Lab Timed Once for 1 Occur rences starting 03/21/2025 until 03/21/2025 documented as of this encounter Procedures Procedure Name Priority Date/Time Associated Diagnosis Comments LACTIC ACID STAT 03/21/2025 2:07 AM EDT TROPONIN-T HIGH SENSITIVITY BASELINE W/ REFLEX STAT 03/21/2025 2:06 AM EDT CBC WITH DIFF STAT 03/21/2025 2:06 AM EDT COMPREHENSIVE METABOLIC PANEL STAT 03/21/2025 2:06 AM EDT EK EKG 12 LEAD STAT 03/21/2025 1:40 AM EDT Procedure Note - 03/21/2025 1:40 AM EDTThis note is in progress. NOTICE: Preliminary tracing available for review; Final Interpretation byphysician to follow. IMPRESSION [facility] Test Date: 2025-03-21 Pat Name: ROSIE DEE Department: DEPID Room: Gender: Female Director Commercial Sales: : 1985 Requested By: MARTIN CASSIDY Order Number: [id number] Reading MD: Measurements Intervals [place] Rate: 87 P: 30 MT: 148 QRS: 52 QRSD: 96 T: 49 QT: 362 QTc: 438 Interpretive Statements SINUS RHYTHM documented in this encounter Results * LACTIC ACID (03/21/2025 2:07 AM EDT) Pathologist [facility] Lactic Acid 1.1 0.5 - 1.9 mmol/L 03/21/2025 2:26 AM EDT [facility] Blood VENOUS BLOOD / Unknown Venipuncture / Unknown 03/21/2025 2:07 AM EDT 03/21/2025 2:07 AM EDT us Matrin Cassidy REPAIRER SHOE [employer]ICKS CHEMISTRY ORDERABLES Final Res ult [facility] 1 [facility] , [place] [address] * TROPONIN-T HIGH SENSITIVITY BASELINE W/ REFLEX (03/21/2025 2:06 AM EDT) iw-cJxaxhtgc-L <6 <14 ng/L 03/21/2025 2:29 AM EDT [facility] Blood VENOUS BLOOD / Unknown Venipuncture / Unknown 03/21/2025 2:06 AM EDT 03/21/2025 2:06 AM EDT Narrative [facility] - 03/21/2025 2:29 AM EDT Ingestion of manda doses of biotin (>5 mg/day) taken within 8 hours of drawing blood sample can interfere with this immunoassay test. Martin Cassidy NP CHEMISTRY ORDERABLES Final Res ult [facility] 1 [facility] , [address] [place] [phone] * (ABNORMAL) COMPREHENSIVE METABOLIC PANEL (03/21/2025 2:06 AM EDT) Sodium 140 136 - 145 mmol/L 03/21/2025 2:29 AM EDT [facility] Potassium 3.6 3.5 - 5.0 mmol/L 03/21/2025 2:29 AM EDT [facility] Chloride 107 98 - 107 mmol/L 03/21/2025 2:29 AM EDT [facility] Total CO2 22 22 - 29 mmol/L [...] 03/21/2025 2:29 AM EDT [facility] Bili Total 0.3 0.2 - 1.3 mg/dL 03/21/2025 2:29 AM EDT [facility] ALT 14 <=41 U/L 03/21/2025 2:29 AM EDT [facility] AST 16 <=40 U/L 03/21/2025 2:29 AM EDT [facility] Alk Phos 95 36 - 123 U/L 03/21/2025 2:29 AM EDT [facility] eGFR (CKD-EPIcr 2020) 111 >=60 mL/min/1.7 3 m2 03/21/2025 2:29 AM EDT [facility] Comment:Estimated GFR was ca lculated using the CKD-EPIcr (2020) equation refit without race. The equation is recommended by the National Kidney Foundation - [place] [employer] of Nephrology Task Force. Blood VENOUS BLOOD / Unknown Venipuncture / Unknown 03/21/2025 2:06 AM EDT 03/21/2025 2:06 AM EDT us Martni Cassidy NP CHEMISTRY ORDERABLES Final Res ult [facility] 1 [facility] , [address] [place] [phone] * (ABNORMAL) CBC WITH DIFF (03/21/2025 2:06 AM EDT) WBC 20.0(H) 3.7 - 10.3 x10(3)/mcL 03/21/2025 2:36 AM EDT [facility] RBC 2.97(L) 3.90 - 5.20 x10(6)/mcL 03/21/2025 2:36 AM EDT [facility] Hgb 9.2(L) 11.2 - 15.7 g/dL 03/21/2025 2:36 AM EDT [facility] Hct 28.4(L) 34.0 - 45.0 % 03/21/2025 2:36 AM EDT [facility] MCV 95.6 80.0 - 100.0 fL 03/21/2025 [...] 2:36 AM EDT [facility] [place] # 0.2(L) 0.3 - 0.9 x10(3)/mcL 03/21/2025 [...] [facility] Occasional 03/21/2025 2:36 AM EDT [facility] Blood VENOUS BLOOD / Unknown Venipuncture / Unknown 03/21/2025 2:06 AM EDT 03/21/2025 2:06 AM EDT Martin Cassidy NP HEMATOLOGY ORDERABLES Final Re sult [facility] 1 [facility] , [address] [place] [phone] documented in this encounter Visit Diagnoses Diagnosis [...] 03/21/2025 documented in this encounter Care Teams Pet Handler Relationship Specialty Start Date End Date [facility] [address] [place] [address] PCP - General Clinic/Center - [facility] ([facility]) 12/03/16 Vane Hollingsworth MD [address] [place] [address] Internal Medicine-Hematology and Oncology 02/21/25 documented as of this encounter
--- OUTSIDE RECORDS SUMMARY | 2025-03-21 04:26 | XMS_ITS | Clinical Summary ---
Author Organization [facility] Address [address] [place] [phone] Phone Care Team Providers Care Breakfast Attendant Name Role Phone J-old, S-old Primary Care Physician Unavailab le Conditions or Problems Problem Name Problem Code Onset Date Status Entry Date Provider Comment Standard Description Annotate PELVIC PAIN 25995587 (SNOMED CT) 01/24 Active 01/24 Hallie Brown MD Pain in pelvis URI 92243819 (SNOMED CT) 01/07 Resolved 01/07 S-old J-old Upper respiratory infection Sinusitis, acute 73751018 (SNOMED CT) 01/17 Inactive 01/17 S-old J-old Acute sinusitis Allergic rhinitis 28342739 (SNOMED CT) 01/17 Active 01/17 S-old J-old Allergic rhinitis URI 26320989 (SNOMED CT) 01/07 Removed 01/07 S-old J-old Upper respiratory infection Hepatitis C antibody, positive serology 230552756 (SNOMED CT) 01/07 Active 01/07 Beatrizselvin Sandoval CNM Hepatitis C antibody detected Pelvic pain 95885705 (SNOMED CT) 01/02 Active 01/03 Beatrizselvin Sandoval CNM Pain in pelvis STD SCREENING 398357455 (SNOMED CT) 01/02 Inactive 01/03 Beatriz Mchover CNM Venereal disease screening Routine gynecological examination 92410148 (SNOMED CT) 01/02 Inactive 01/02 Beatrizselvin Sandoval CNM Gynecologic examination ABDOMINAL PAIN 17898474 (SNOMED CT) 04/24 Active 04/24 Iraida Mayorga APRN Abdominal pain Medications Medication Instructions Start Date Stop Date Generic Name NDC Provider METRONIDAZOLE 500 MG TABS Take 1 tablet by mouth every 12 hours METRONIDAZOLE [id number] Hallie Brown MD AZITHROMYCIN 250 MG TABS TAKE 2 TABLETS BY MOUTH DAY 1 THEN 1 TABLET EVERYDAY DAY 2 TO 5 AZITHROMYCIN 78825719743 S-old J-old LORATADINE 10 MG TABS TAKE 1 TABLET BY MOUTH 1 TIME A DAY NEEDED FOR ALLERGIES LORATADINE 03135577731 S-old J-old BROMFED DM 30-2-10 MG/5ML ORAL SYRUP TAKE 1 TEASPOON BY MOUTH 4 TIMES A DAY NEEDED FOR COUGH PSEUDOEPH-BROMPH EN-DM 91714003996 S-old J-old Medications Administered No information available. Allergies, Adverse Reactions, Alerts Allergy Name Reaction Description Start Date Severity Statu s Provider HYDROCODONE Critical Active Iraida Morales ammarzena QUESTIONED DOCUMENTS EXAMINER Results Date Name Value Unit Range Flag Description Office Visit: F/U from ER fo r severe abdominal pain. RM #4 PREG TST URN negative beta HC G, urine, semiquantitative Office Visit: NEW ACUTE PT: SORE THROAT RM 6 RAPID STREP negative Streptoc occus pyogenes DNA [Presence] in Throat by DAYV with non-probe detection Lab Report: HIV 1/2 ANTIGEN/ ANTIBODY,FOURTH GENERATION W/RFL, HEPATITIS ... HEP C AB REACTIVE NON-REACTI A Hepatiti s C virus Ab [Presence] in Serum Plan of Care Type Date Detail Pending order Medication Recon ciliation Pending order G.C. Chlamydia ( lab order) Pending order BV Yeast Trich C ulture (Affirm) Pending order Ultrasound Pending order SNOMED-CT: 40397 [id number] Current Medications Documented Pending order Medication Recon ciliation Pending order SNOMED-CT: 25781 3000 Smoking Cessation Counseling Pending order SNOMED-CT: 26978 4182995196 Current Medications Documented Pending order Medication Recon ciliation Pending order Strep Screen 878 80 Pending order SNOMED-CT: 83746 5461559194 Current Medications Documented Pending order Hep C [...] Procedures Code Procedure Name Date Entry Date [facility]-[id number] Medication Reconciliation SCT-[id number] SNOMED-CT: 356524281 090010 Current Medications Documented OB US GEN Ultrasound 32152 [facility] # G.C. Chlamydia (lab order) 29622 [facility] # BV Yeast Trich Culture (Affirm) 201 02/10/19 SCT-[id number] Medication Reconciliation SCT-313928324 SNOMED-CT: 368053926 Smoking Cessation Counseling SCT-[id number] SNOMED-CT: 564990920 023008 Current Medications Documented SCT-846765457094028 Medication Reconciliation CPT-63690 Strep Screen 82136 2 SCT-[id number] SNOMED-CT: 017745852 331483 Current Medications Documented 799 [facility] # RPR/VDRL [id number] [facility] # BV Yeast Trich Culture (Affirm) 201 02/09/27 SCT-[id number] Medication Reconciliation 03383 [facility] # ThinPrep Pap w reflex HR HPV mRNA E 6/E7 8472 [facility] [place] [address] [facility] # HIV 1/2 Antigen & An tibodies -consent required CPT-G8447 Encounter documented using a certified EH R CPT-64528 Test PU Pelvic Ultrasound Vital Signs Date [...]
--- NOTE | 2025-03-21 04:27 | ED_ITS ---
Discharge Plan Disposition Patient Disposition: Home, Self-Care Referrals Follow up/Referrals: Provider,MD Luis M [Primary Care Provider, Medical] - See instructions Activity Restrictions/Add. Instructions Additional Instructions/Restrictions: Follow-up with your cancer doctors if your current pain regimen needs to be adjusted. Otherwise return to the emergency department for any acute or worsening symptoms. Clinical Impressions Clinical Impression: Cancer associated pain Instructions Patient Instructions: Cancer Pain Syndromes Print Language Print Language: Ukrainian Discharge ED Provider: Kellie Pelletier General Adult HPI <Kellie Pelletier MD - Last Filed: 03/21/25 07:16> General Chief complaint: PAIN Stated complaint: undergoing chemo, pain everywhere Time Seen by Provider: 03/21/25 04:19 History of Present Illness HPI narrative: 40-year-old female actively being treated for breast cancer presents to the ER for post chemo pain. Patient reports she had her last dose of chemo on the , she came to the ER that night with significant pain and was treated. She states she felt better after that. Review of records demonstrates she got Dilaudid, Zofran, and IV fluids. Patient reports she went back to work because she was bored but being on her feet made her pain worse. She went to after work Friday. I reviewed these records and patient was seen early Friday morning, 03/19/2025. She was treated with 2 mg of Dilaudid, IV fluids. She also had very slight hypokalemia with potassium 3.2 on the . She was treated with oral potassium at that time. Patient reports she is still not back to work but today was only able to sit because of her pain. She states all of her joint pains which she typically has after chemo are significantly worse tonight. She states she also has nausea. She states this is very typical around this time after her chemoinfusion. She states she is very glad that she is now done with chemo. She denies fevers, chills, chest pain, difficulty breathing, vomiting, or any other associated symptoms. Records demonstrate that patient gets her chemo treatments at [facility]. She also had a immune booster shot the . Related Data Allergies Allergy/AdvReac Type Severity Reaction Status Date / Time hydrocodone Allergy Hives Verified 03/16/25 19:04 ketorolac (From Toradol) Allergy Hives Verified 03/16/25 19:04 tramadol Allergy Hives Verified 03/16/25 19:04 PFSH <Kellie Pelletier MD - Last Filed: 03/21/25 07:16> PFS Disclaimer: The information contained in this section may have been updated after the patient was seen, as this information can be updated by other users. Social History (Updated 03/16/25 @ 20:17 by FANNIE Patel) Smoking Status: Light tobacco smoker alcohol intake: never current occupational status: other Travel in the last 8 weeks?: None <Kellie Pelletier MD - Last Filed: 03/21/25 07:16> ROS Obtained: Yes Systems reviewed as appropriate & no additional complaints except as documented Per HPI Physical Exam <Kellie Pelletier MD - Last Filed: 03/21/25 07:16> General General appearance: alert and in no apparent distress Head Head exam: atraumatic and normocephalic Eye Eye exam: Present PERRL and EOMI ENT ENT exam: Present mucous membranes moist Neck Neck exam: Present normal inspection and full ROM Chest Chest inspection: Present symmetric chest wall rise Respiratory Respiratory exam: Present normal lung sounds bilaterally; Absent respiratory distress, wheezes or stridor Cardiovascular Cardiovascular exam: Present regular rate and normal rhythm Abdominal Exam Abdominal exam: Present soft and tenderness (Mild generalized); Absent distention, guarding or rebound Extremities Exam Extremities exam: Present full ROM; Absent edema or joint swelling Neurological Exam Neurological exam: Present alert and oriented X3; Absent motor sensory deficit Psychiatric Psychiatric exam: Present normal affect and normal mood Skin Skin exam: Present warm and dry Medical Decision Making <Kellie Pelletier MD - Last Filed: 03/21/25 07:16> Medical Records Medical records reviewed: Yes I reviewed the patient's medical records. Screening: Per USPSTF and CDC recommendations, given the prevalence of disease in our region, it is our hospital?s policy to screen for HIV and viral Hepatitis for all patients aged 18 and over and those with ongoing risk factors. MR Comment: See HPI Jerome Inquiry Pt receiving controlled substance: No Vital Signs: 03/21/25 05:31 03/21/25 06:15 03/21/25 07:26 Temperature 98.1 F Temperature Source Oral Pulse Rate 89 96 H Pulse Rate [Right] 89 Respiratory Rate 16 Blood Pressure 139/87 135/78 Blood Pressure [Right Arm] 119/56 L Blood Pressure Mean 97 91 Blood Pressure Mean [Right Arm] 77 02 Sat by Pulse Oximetry 97 98 97 03/21/25 07:30 03/21/25 08:00 03/21/25 08:30 Temperature Temperature Source Pulse Rate 92 H 99 H 88 Pulse Rate [Right] Respiratory Rate 18 16 Blood Pressure 126/74 136/69 136/68 Blood Pressure [Right Arm] Blood Pressure Mean 89 85 76 Blood Pressure Mean [Right Arm] 02 Sat by Pulse Oximetry 97 98 95 Lab Data Lab Results 03/21/25 04:50: WBC 17.4 H, RBC 2.83 L, Hgb 8.6 L, Hct 26.8 L, MCV 94.7, MCH 30.4, MCHC 32.1, RDW 16.5, Plt Count 221, MPV 10.3, Neut % (Auto) 75.1, Lymph % (Auto) 5.3 L, [place] % (Auto) 1.1 L, Eos % (Auto) 0.6, Baso % (Auto) 0.2, Neut # (Auto) 13.1 H, Lymph # (Auto) 0.9, [place] # (Auto) 0.2, Eos # (Auto) 0.1, Baso # (Auto) 0.0, Total Counted 100, Neutrophils % (Manual) 82 H, Lymphocytes % (Manual) 10, Monocytes % (Manual) 4, Sodium 138, Potassium 3.4 L, Chloride 104, Carbon Dioxide 26, Anion Gap 11.4, BUN 12, Creatinine 0.60, Estimated GFR 110, Est GFR ( Amer) 133, Glucose 83, Calcium 8.8, Total Bilirubin 0.5, AST 21, ALT 16, Alkaline Phosphatase 83, Total Creatine Kinase 33, Total Protein 6.0 L, Albumin 3.7, Globulin 2.3, Albumin/Globulin Ratio 1.6 03/21/25 05:18: Lactate 1.1 03/21/25 04:50 03/21/25 04:50 Orders (Tests/Meds): ED MEDICATIONS Discontinued Medications Generic Name Dose Route Start Last Admin Trade Name Freq PRN Reason Stop Dose Admin Hydromorphone HCl 2 mg 03/21/25 04:19 03/21/25 05:14 Hydromorphone 2mg/Ml Syringe IV 03/21/25 04:20 2 mg ONCE ONE Administration Hydromorphone HCl 1 mg 03/21/25 07:47 03/21/25 07:58 Hydromorphone 2mg/Ml Syringe IV 03/21/25 07:48 1 mg ONCE ONE Administration Lactated Ringer's 1,000 mls @ 999 mls/hr 03/21/25 04:19 03/21/25 05:13 Lactated Ringer's 1000 Ml Bag IV 03/21/25 05:19 999 mls/hr .Q1H1M ONE Administration Ondansetron HCl 4 mg 03/21/25 04:28 03/21/25 05:13 Ondansetron 4mg/2ml Vial IV 03/21/25 04:29 4 mg ONCE ONE Administration Potassium Chloride 20 meq 03/21/25 07:15 03/21/25 07:34 Potassium Chloride 20meq Tab PO 03/21/25 07:16 20 meq ONCE ONE Administration ORDERS Category Date Time Status CBC w/Auto Diff [Complete Blood Count Auto Diff] Stat Lab 03/21/25 04:50 Completed CK [Creatine Kinase] Stat Lab 03/21/25 04:50 Completed CMP [Comprehensive Metabolic Panel] Stat Lab 03/21/25 04:50 Completed Lactic Acid Stat Lab 03/21/25 05:18 Completed Medical Decision Narrative: In summary, this 40-year-old female with comorbidities described in the HPI including breast cancer actively being treated presents to the emergency department today with post chemo pain, nausea. On initial evaluation patient is hemodynamically stable, afebrile, GCS 15, patient has very mild abdominal tenderness, no evidence of joint swelling or pitting edema. Patient is otherwise well-appearing. Differential diagnosis includes but is not limited to post chemo pain, post chemo nausea, I considered the possibility of significant electrolyte abnormality or muscle spasm, also considered the possibility of neutropenia or other significant cell line derangement, muscle breakdown, lactic acidosis, dehydration. Based on these concerns, I ordered basic serum labs. Review of records consistently demonstrates that patient responds well to 1 L of fluids, Zofran, and 2 mg of Dilaudid, so these were all ordered for her. She does report she is taking her home pain medications as prescribed but this is a consistent reaction for her in the few days following her chemo infusions. Labs reviewed by me demonstrate leukocytosis WBC 17.4, patient had leukocytosis at [facility] few days ago as well, with receiving a recent immune boosting shot I am not surprised that she has some leukocytosis and this is nonspecific, not particularly actionable at this time. Her anemia is slightly worse than prior but she is asymptomatic from at this time, nonactionable. CMP with mild hypokalemia, oral repletion being administered. Patient handed off to Dr. Corcoran pending reassessment and disposition. <Iza Corcoran, DO - Last Filed: 03/21/25 09:16> Vital Signs: 03/21/25 05:31 03/21/25 06:15 03/21/25 07:26 Temperature 98.1 F Temperature Source Oral Pulse Rate 89 96 H Pulse Rate [Right] 89 Respiratory Rate 16 Blood Pressure 139/87 135/78 Blood Pressure [Right Arm] 119/56 L Blood Pressure Mean 97 91 Blood Pressure Mean [Right Arm] 77 02 Sat by Pulse Oximetry 97 98 97 03/21/25 07:30 03/21/25 08:00 03/21/25 08:30 Temperature Temperature Source Pulse Rate 92 H 99 H 88 Pulse Rate [Right] Respiratory Rate 18 16 Blood Pressure 126/74 136/69 136/68 Blood Pressure [Right Arm] Blood Pressure Mean 89 85 76 Blood Pressure Mean [Right Arm] 02 Sat by Pulse Oximetry 97 98 95 Lab Data Lab Results 03/21/25 04:50: WBC 17.4 H, RBC 2.83 L, Hgb 8.6 L, Hct 26.8 L, MCV 94.7, MCH 30.4, MCHC 32.1, RDW 16.5, Plt Count 221, MPV 10.3, Neut % (Auto) 75.1, Lymph % (Auto) 5.3 L, [place] % (Auto) 1.1 L, Eos % (Auto) 0.6, Baso % (Auto) 0.2, Neut # (Auto) 13.1 H, Lymph # (Auto) 0.9, [place] # (Auto) 0.2, Eos # (Auto) 0.1, Baso # (Auto) 0.0, Total Counted 100, Neutrophils % (Manual) 82 H, Lymphocytes % (Manual) 10, Monocytes % (Manual) 4, Sodium 138, Potassium 3.4 L, Chloride 104, Carbon Dioxide 26, Anion Gap 11.4, BUN 12, Creatinine 0.60, Estimated GFR 110, Est GFR ( Amer) 133, Glucose 83, Calcium 8.8, Total Bilirubin 0.5, AST 21, ALT 16, Alkaline Phosphatase 83, Total Creatine Kinase 33, Total Protein 6.0 L, Albumin 3.7, Globulin 2.3, Albumin/Globulin Ratio 1.6 03/21/25 05:18: Lactate 1.1 Orders (Tests/Meds): ED MEDICATIONS Discontinued Medications Generic Name Dose Route Start Last Admin Trade Name Freq PRN Reason Stop Dose Admin Hydromorphone HCl 2 mg 03/21/25 04:19 03/21/25 05:14 Hydromorphone 2mg/Ml Syringe IV 03/21/25 04:20 2 mg ONCE ONE Administration Hydromorphone HCl 1 mg 03/21/25 07:47 03/21/25 07:58 Hydromorphone 2mg/Ml Syringe IV 03/21/25 07:48 1 mg ONCE ONE Administration Lactated Ringer's 1,000 mls @ 999 mls/hr 03/21/25 04:19 03/21/25 05:13 Lactated Ringer's 1000 Ml Bag IV 03/21/25 05:19 999 mls/hr .Q1H1M ONE Administration Ondansetron HCl 4 mg 03/21/25 04:28 03/21/25 05:13 Ondansetron 4mg/2ml Vial IV 03/21/25 04:29 4 mg ONCE ONE Administration Potassium Chloride 20 meq 03/21/25 07:15 03/21/25 07:34 Potassium Chloride 20meq Tab PO 03/21/25 07:16 20 meq ONCE ONE Administration ORDERS Category Date Time Status CBC w/Auto Diff [Complete Blood Count Auto Diff] Stat Lab 03/21/25 04:50 Completed CK [Creatine Kinase] Stat Lab 03/21/25 04:50 Completed CMP [Comprehensive Metabolic Panel] Stat Lab 03/21/25 04:50 Completed Lactic Acid Stat Lab 03/21/25 05:18 Completed Medical Decision Narrative: In summary, this 40-year-old female with comorbidities described in the HPI including breast cancer actively being treated presents to the emergency department today with post chemo pain, nausea. On initial evaluation patient is hemodynamically stable, afebrile, GCS 15, patient has very mild abdominal tenderness, no evidence of joint swelling or pitting edema. Patient is otherwise well-appearing. Differential diagnosis includes but is not limited to post chemo pain, post chemo nausea, I considered the possibility of significant electrolyte abnormality or muscle spasm, also considered the possibility of neutropenia or other significant cell line derangement, muscle breakdown, lactic acidosis, dehydration. Based on these concerns, I ordered basic serum labs. Review of records consistently demonstrates that patient responds well to 1 L of fluids, Zofran, and 2 mg of Dilaudid, so these were all ordered for her. She does report she is taking her home pain medications as prescribed but this is a consistent reaction for her in the few days following her chemo infusions. Labs reviewed by me demonstrate leukocytosis WBC 17.4, patient had leukocytosis at few days ago as well, with receiving a recent immune boosting shot I am not surprised that she has some leukocytosis and this is nonspecific, not particularly actionable at this time. Her anemia is slightly worse than prior but she is asymptomatic from at this time, nonactionable. CMP with mild hypokalemia, oral repletion being administered. Patient handed off to Dr. Corcoran pending reassessment and disposition. Patient was signed out to me pending reevaluation. Patient received another IV dose of Dilaudid in the emergency department. Patient reported that her symptoms were largely improved, patient was only reporting pain in her ankles at this time. At this time, patient felt comfortable discharging home, I recommended the patient follow-up with her cancer doctors as her pain regimen may need to be readjusted. At this time, patient was discharged home in stable condition. Critical Care <Kellie Pelletier MD - Last Filed: 03/21/25 07:16> Critical Care Time Critical Care Time: No
--- OUTSIDE RECORDS SUMMARY | 2025-03-21 04:28 | XMS_ITS | Encounter Summary ---
Author Organization [place] [address] Care Team Providers Care Senior Laboratory Technician Name Role Phone Rodriguez Lindo Primary Care Provider +1- [phone] Poli Felix RN Unavailable Unavailable Reason for Visit * Reason Onset Date Comments Symptom Call 02/07/2025 Encounter Details Date Type Department Care Team (Late st Contact Info) Description 02/07/2025 Telephone [facility] [place] [address] Vane Hollingsworth MD [address] [place] [address] Symptom Call Social History Tobacco Use Types [...] AM EDT Appointment [place] [address] 04/15/2025 9:15 AM EDT Appointment [place] [address] Vane Hollingsworth MD [address] [place] [address] documented as of this encounter Visit Diagnoses Diagnosis Malignant neoplasm of overlapping sites of left breast in female, estrogen receptor positive (HCC)- Primary documented in this encounter Care Teams Senior Laboratory Technician Relationship Specialty Start Date End Date [facility] [address] [place] [phone] PCP - General Clinic/Center - [facility] ([facility]) 12/03/16 Poli Felix, PAMELA Registered Nurse Infusion Therapy 02/01/25 02/08/25 documented as of this encounter
--- OUTSIDE RECORDS SUMMARY | 2025-03-21 04:28 | XMS_ITS | Encounter Summary ---
Demographics Address [address] [place] [address] Mobile Phone Email Address Preferred Language en Marital Status Hoahaoism Affiliation Unknown Race White Ethnic Group Not or Lati no Author Organization Healthcare Address [address] [place] [address] Care Team Providers Care Coordinate Measuring Equipment Operator Name Role Phone Pcp, No Primary Care Provider Unavailabl e Encounter Details Date Type Department Care Team (Late st Contact Info) Description 02/07/2025 Patient Outreach [facility] Medicine Specialties [address] [place] [id number] Boni Anna Social History Tobacco Use Types [...] on filedocumented in this encounter Care Teams Coordinate Measuring Equipment Operator Relationship Specialty Start Date End Date Pcp, No [address] [place] [address] PCP - General Family Medicine 02/07/25 documented as of this encounter
--- OUTSIDE RECORDS SUMMARY | 2025-03-21 04:28 | XMS_ITS | Encounter Summary ---
Author Organization [place] [address] Care Team Providers Care Industrial Therapist Name Role Phone Rodriguez Lindo Primary Care Provider +1- [phone] Poli Felix RN Unavailable Unavailable Encounter Details Date Type Department Care Team (Late st Contact Info) Description 02/03/2025 Orders Only [facility] [place], [place] [phone] Sosa Ernst, SENIOR SOFTWARE DEVELOPMENT ENGINEER [address] [place], [place] [phone] Malignant neoplasm of overlapping sites of left [...] this encounter Progress Notes * Sosa Ernst, SENIOR SOFTWARE DEVELOPMENT ENGINEER - 02/03/2025 2:27 PM EDT unscheduled office visit-02/04/25 CINV documented in this encounter Plan of Treatment Upcoming Encounters Date Type Department Care Team (Late st Contact Info) Description 04/15/2025 8:45 AM EDT Appointment [place] [address] 04/15/2025 9:15 AM EDT Appointment [facility] [place] [address] Vane Hollingsworth MD [address] [place] [address] documented as of this encounter Results * MAGNESIUM LEVEL (02/09/2025 8:45 AM EDT) Pathologist [facility] Magnesium 2.1 1.6 - 2.4 mg/dL 02/09/2025 9:32 AM EDT [facility] Blood VENOUS STRUCTURE / Unknown Medicare Port / Unknown 02/09/2025 8:45 AM EDT 02/09/2025 8:46 AM EDT Sosa Ernst APRN CHEMISTRY ORDERABLES Ernestine l Result [facility] [address] [place] [address] * (ABNORMAL) COMPREHENSIVE METABOLIC PANEL (02/09/2025 8:45 AM EDT) Pathologist [facility] Sodium 142 136 - 145 mmol/L 02/09/2025 9:32 AM EDT [facility] Potassium 3.4(L) 3.5 - 5.0 mmol/L 02/09/2025 9:32 AM EDT [facility] Chloride 107 98 - 107 mmol/L 02/09/2025 9:32 AM EDT [facility] Total CO2 23 22 - 29 mmol/L 02/09/2025 9:32 AM EDT [facility] Anion Gap 12 7 - 16 mmol/L 02/09/2025 9:32 AM EDT [facility] Calcium 9.3 8.6 - 10.4 mg/dL 02/09/2025 9:32 AM EDT [facility] Glucose Lvl 101(H) 70 - 99 mg/dL 02/09/2025 9:32 AM EDT [facility] BUN 10 6 - 20 mg/dL 02/09/2025 9:32 AM EDT [facility] Creatinine 0.77 0.51 - 1.30 mg/dL 02/09/2025 9:32 AM EDT [facility] Albumin 4.0 3.5 - 5.2 gm/dL 02/09/2025 9:32 AM EDT [facility] Total Protein 6.3(L) 6.4 - 8.3 gm/dL 02/09/2025 9:32 AM EDT [facility] Bili Total <0.2(L) 0.2 - 1.3 mg/dL 02/09/2025 9:32 AM EDT [facility] ALT 15 <=41 U/L 02/09/2025 9:32 AM EDT [facility] AST 23 <=40 U/L 02/09/2025 9:32 AM EDT [facility] Alk Phos 109 36 - 123 U/L 02/09/2025 9:32 AM EDT [facility] eGFR (CKD-EPIcr 2020) 99 >=60 mL/min/1.7 3 m2 02/09/2025 9:32 AM EDT [facility] Comment:Estimated GFR was ca lculated using the CKD-EPIcr (2020) equation refit without race. The equation is recommended by the National Kidney Foundation - Indian Society of Nephrology Task Force. Blood VENOUS STRUCTURE / Unknown Medicare Port / Unknown 02/09/2025 8:45 AM EDT 02/09/2025 8:46 AM EDT us Bovina E [facility] SENIOR SOFTWARE DEVELOPMENT ENGINEER CHEMISTRY ORDERABLES Ernestine l Result [facility] [address] [place] [id number] * (ABNORMAL) CBC WITH DIFF (02/09/2025 8:45 AM EDT) [facility] WBC 28.7(H) 3.7 - 10.3 x10(3)/mc L 02/09/2025 9:45 AM EDT [facility] Comment:This is an appended report. These results have been appended to a previously preliminary verified report. RBC 3.12(L) 3.90 - 5.20 x10(6)/mc L 02/09/2025 9:45 AM EDT [facility] Hgb 9.6(L) 11.2 - 15.7 g/dL 02/09/2025 9:45 AM EDT [facility] Hct 29.9(L) 34.0 - 45.0 % 02/09/2025 9:45 AM EDT [facility] MCV 95.8 80.0 - 100.0 fL 02/09/2025 9:45 AM EDT [facility] MCH 30.8 26.0 - 34.0 pg 02/09/2025 9:45 AM EDT [facility] MCHC 32.1 30.7 - 35.5 g/dL 02/09/2025 9:45 AM EDT [facility] RDW 13.9 <=14.9 % 02/09/2025 9:45 AM EDT [facility] Platelet 217 155 - 369 x10(3)/mc L 02/09/2025 9:45 AM EDT [facility] MPV 9.5 8.8 - 12.5 fL 02/09/2025 9:45 AM EDT [facility] NRBC Auto % 0.8(H) <=0.0 % 02/09/2025 9:45 AM EDT [facility] Comment:This is an appended report. These results have been appended to a previously preliminary verified report. NRBC# 0.2 x10(3)/mc L 02/09/2025 9:45 AM EDT [employer] Comment:This is an appended report. These results [...] 9:45 AM EDT [facility] Jerauld # 2.3(H) 0.3 - 0.9 x10(3)/mc L [...] AM EDT 02/09/2025 8:46 AM EDT us Bovina Angella Klever SENIOR SOFTWARE DEVELOPMENT ENGINEER HEMATOLOGY ORDERABLES Fin al Result [facility] [address] [place] [address] [facility] [address] [facility] , [place] [address] documented in this encounter Visit Diagnoses Diagnosis Malignant neoplasm of overlapping sites of left breast in female, estrogen receptor positive (HCC)- Primary documented in this encounter Care Teams Industrial Therapist Relationship Specialty Start Date End Date [facility] [address] [place] [address] PCP - General Clinic/Center - [facility] ([facility]) 12/03/16 Poli Felix, PAMELA Registered Nurse Infusion Therapy 02/01/25 02/08/25 documented as of this encounter
--- OUTSIDE RECORDS SUMMARY | 2025-03-21 04:28 | XMS_ITS | Encounter Summary ---
Demographics Address [address] [place] [phone] Mobile Phone Email Address Preferred Language en Marital Status Shinto Affiliation Unknown Race White Ethnic Group Not or Lati no Author Organization Healthcare Address [address] [place] [phone] Care Team Providers Care Fruit Loader Name Role Phone Pcp, No Primary Care Provider Unavailabl e Encounter Details Date Type Department Care Team (Latest Contact Info) Description 03/19/2025 Travel Social History Tobacco Use Types Packs/Day [...] Iza Murillo documented as of this encounter Plan of Treatment Not on file documented as of this encounter Visit Diagnoses Not on filedocumented in this encounter Care Teams Fruit Loader Relationship Specialty Start Date End Date Pcp, Mounika [address] [place] [address] PCP - General Family Medicine 02/07/25 documented as of this encounter
--- OUTSIDE RECORDS SUMMARY | 2025-03-21 04:28 | XMS_ITS | Encounter Summary ---
Author Organization [place] [address] Care Team Providers Care Oral Pathologist Name Role Phone Rodriguez Lindo Primary Care Provider [phone]- [phone] Poli Felix RN Unavailable Unavailable Reason for Visit * Reason Onset Date Comments Medication Refill 02/07/2025 Encounter Details Date Type Department Care Team (Late Contact Info) Description 02/07/2025 Refill [facility] [place] [address] Ana Rosa Del Angel, MARTÍN [address] [place] [address] Medication Refill Social History Tobacco Use Types [...] Department Care Team (Late Contact Info) Description 04/15/2025 8:45 AM EDT Appointment [place] [address] 04/15/2025 9:15 AM EDT Appointment Cancer Care Medical On[facility] [place], [place] [phone] Vane Hollingsworth MD [address] [place] [address] [phone] documented as of this encounter Visit Diagnoses Diagnosis Encounter for antineoplastic chemotherapy documented in this encounter Care Teams Oral Pathologist Relationship Specialty Start Date End Date [facility] [address] [place] [address] PCP - General Clinic/Center - [facility] ([facility]) 12/03/16 Poli Felix, RN Registered Nurse Infusion Therapy 02/01/25 02/08/25 documented as of this encounter
--- OUTSIDE RECORDS SUMMARY | 2025-03-21 04:28 | XMS_ITS | Encounter Summary ---
Demographics Address [address] [place] [phone] Mobile Phone Email Address Preferred Language en Marital Status Tenriism Affiliation Unknown Race White Ethnic Group Not or Lati no Author Organization Healthcare Address [address] [phone] Care Team Providers Care Chief Informatics Officer Name Role Phone Pcp, No Primary Care [...] on filedocumented in this encounter Care Teams Chief Informatics Officer Relationship Specialty Start Date End Date Pcp, No [address] [place] [address] PCP - General Family Medicine 02/07/25 documented as of this encounter
--- OUTSIDE RECORDS SUMMARY | 2025-03-21 04:28 | XMS_ITS ---
Demographics Address [address] [place] [phone] Mobile Phone Email Address Preferred Language en Marital Status Faith Affiliation Unknown Race White Ethnic Group Not or Lati no Author Organization [facility] Address [address] [place] [address] Care Team Providers Care Transport Operations Inspector Name Role Phone Pcp, No Primary Care Provider Unavailabl e Hepatitis C Program Status:Closed (Closed) Start date:02/07/2025 Enrollment reason:HCV End date:02/07/2025 Close reason:HCV RNA Negative Continued Care and Services Coordination
--- OUTSIDE RECORDS SUMMARY | 2025-03-21 04:28 | XMS_ITS | Clinical Summary ---
Demographics Address [address] [place] [phone] Mobile Phone Email Address Preferred Language en Marital Status Restoration Affiliation Unknown Race White Ethnic Group Not or Lati no Author Organization Healthcare Address [address] [place] [address] Care Team Providers Care Assembler Carbon Brushes Name Role Phone Pcp, No Primary Care [...] as needed (pain). 10 tablet 02/28/2025 Active Encounters Date Type Department Care Team Description 03/19/2025 12:14 AM EDT - 03/19/2025 2:48 AM EDT Emergency [facility] Emergency Department [address] [place] [phone] Abbe Ramires MD Cancer associated pain (Primary Dx); Hypokalemia Discharge Disposition: Home or Self Care 03/19/2025 Travel 03/16/2025 4:56 PM EDT - 03/16/2025 5:25 PM EDT Emergency [facility] Emergency Department [address] [place] [address] Discharge Disposition: Left WIthout Being Seen 03/16/2025 Travel 02/27/2025 10:52 PM EDT - 02/28/2025 1:08 AM EDT Emergency [facility] Emergency Department [address] [place] [phone] García Matias MD Cancer associated pain (Primary Dx) Discharge Disposition: Home or Self Care 02/27/2025 Travel 02/07/2025 4:00 PM EDT - 02/07/2025 6:31 PM EDT Emergency [facility] Emergency Department [address] [place] [address] German Gonzalez DO Cancer associated pain (Primary Dx) Discharge Disposition: Home or Self Care 02/07/2025 [facility] [address] [place] [address] Boni Anna 02/07/2025 Travel from Last 3 [...] Mass Index 29.89 03/19/2025 1:01 AM EDT Plan of Treatment Health Maintenance Due Date Last Done Comments [facility]-Depression Screening 1985 [facility]-/Child/Adol SDOH Screenings 1985 [id number] Vaccine (#1) 01/29/1989 [facility]-Obesity Intervention 01/29/1990 [facility]-Varicella [...] PANEL, PLASMA STAT 03/19/2025 12:52 AM EDT MORPHOLOGY STAT 02/27/2025 11:23 PM EDT MANUAL [...] EDT from Last 3 Months Results * Lactic acid, venous (03/19/2025 12:52 AM EDT) Lactate, Venous, Whole Blood 1.2 0.5 - 2.2 mmol/L LAB HEMATOLOGY METHOD 03/19/2025 1:09 AM EDT [facility] Blood Venous blood specimen / Unknown Venipuncture / Unknown 03/19/2025 12:52 AM EDT 03/19/2025 1:07 AM EDT us Abbe Ramires MD LAB BLOOD ORDERABLES Final Resul t [facility] [address] [place] [address] * (ABNORMAL) CBC w/diff (03/19/2025 12:52 AM EDT) Only the most recent of2 resultswithin the time period is included. WBC Count 41.22(H) 3.70 - 10.30 10*3/uL LAB HEMATOLOGY METHOD 03/19/2025 1:12 AM EDT [facility] RBC Count 3.12(L) 3.90 - 5.20 10*6/uL LAB HEMATOLOGY METHOD 03/19/2025 1:12 AM EDT [facility] HGB 9.5(L) 11.2 - 15.7 g/dL LAB HEMATOLOGY METHOD 03/19/2025 1:12 AM EDT [facility] HCT 29.0(L) 34.0 - 45.0 % LAB HEMATOLOGY METHOD 03/19/2025 1:12 AM EDT [facility] Platelet Count 301 155 - 369 10*3/uL LAB HEMATOLOGY METHOD 03/19/2025 1:12 AM EDT [facility] MCV 93 79 - 98 fL LAB HEMATOLOGY METHOD 03/19/2025 1:12 AM EDT [facility] MCH 30.4 26.0 - 32.0 pg LAB HEMATOLOGY METHOD 03/19/2025 1:12 AM EDT [facility] MCHC 32.8 30.7 - 35.5 g/dL LAB HEMATOLOGY METHOD 03/19/2025 1:12 AM EDT [facility] RDW 16.6(H) 11.5 - 14.5 % LAB HEMATOLOGY METHOD 03/19/2025 1:12 AM EDT [facility] MPV 10.1 8.8 - 12.5 fL LAB HEMATOLOGY METHOD 03/19/2025 1:12 AM EDT [facility] nRBC 0.0 <=0.0 per 100 WBCs LAB HEMATOLOGY METHOD 03/19/2025 1:12 AM EDT [facility] Differential Type Automated LAB HEMATOLOGY METHOD 03/19/2025 1:12 AM EDT [facility] Neutrophils % 95 % LAB HEMATOLOGY METHOD 03/19/2025 1:12 AM EDT [facility]ALTH[facility] Lymphocytes % 2 % LAB HEMATOLOGY METHOD 03/19/2025 1:12 AM EDT [facility] Monocytes % 1 % LAB HEMATOLOGY METHOD 03/19/2025 1:12 AM EDT [facility] Eosinophils % 0 % LAB HEMATOLOGY METHOD 03/19/2025 1:12 AM EDT [facility] Basophils % 0 % LAB HEMATOLOGY METHOD 03/19/2025 1:12 AM EDT [facility] Immature Granulocytes % 2 % LAB HEMATOLOGY METHOD 03/19/2025 1:12 AM EDT [facility] Neutrophils Absolute 39.07(H) 1.60 - 6.10 10*3/uL LAB HEMATOLOGY METHOD 03/19/2025 1:12 AM EDT [facility] Lymphocytes Absolute 0.81(L) 1.20 - 3.90 10*3/uL LAB HEMATOLOGY METHOD 03/19/2025 1:12 AM EDT [facility] Monocytes Absolute 0.34 0.30 - 0.90 10*3/uL LAB HEMATOLOGY METHOD 03/19/2025 1:12 AM EDT [facility] Eosinophils Absolute 0.02 0.00 - 0.50 10*3/uL LAB HEMATOLOGY METHOD 03/19/2025 1:12 AM EDT [facility] Basophils Absolute 0.08 0.00 - 0.10 10*3/uL LAB HEMATOLOGY METHOD 03/19/2025 1:12 AM EDT [facility] Immature Granulocytes Absolute 0.90(H) 0.00 - 0.06 10*3/uL LAB HEMATOLOGY METHOD 03/19/2025 1:12 AM EDT [facility] Blood Venous blood specimen / Unknown Venipuncture / Unknown 03/19/2025 12:52 AM EDT 03/19/2025 1:08 AM EDT Narrative [facility]ALTH[facility]ARE [facility] - 03/19/2025 1:12 AM EDT Therapeutic decision making should be based on absolute values, rather than percentages. us Abbe Ramires MD LAB BLOOD ORDERABLES Final Resul t [facility] [address] [place] [address] * (ABNORMAL) BMP (03/19/2025 12:52 AM EDT) Glucose, Plasma 79 74 - 99 mg/dL 03/19/2025 1:31 AM EDT [facility] BUN, Plasma 22(H) 7 - 21 mg/dL 03/19/2025 1:31 AM EDT [facility] Creatinine, Plasma 0.92 0.60 - 1.10 mg/dL 03/19/2025 1:31 AM EDT [facility] BUN/Creatinine Ratio 24 03/19/2025 1:31 AM EDT [facility] Sodium, Plasma 143 136 - 145 mmol/L 03/19/2025 1:31 AM EDT [facility] Potassium, Plasma 3.2(L) 3.6 - 4.9 mmol/L 03/19/2025 1:31 AM EDT [facility] Chloride, Plasma 110(H) 97 - 107 mmol/L 03/19/2025 1:31 AM EDT [facility] CO2, Plasma 21(L) 22 - 29 mmol/L 03/19/2025 1:31 AM EDT [facility] Anion Gap 12 6 - 16 mmol/L 03/19/2025 1:31 AM EDT [facility] Total Calcium, Plasma 8.4(L) 8.9 - 10.2 mg/dL 03/19/2025 1:31 AM EDT [facility] eGFRcr 80.4 mL/min/1.7 3m*2 03/19/2025 1:31 AM EDT [facility] Comment:Reported eGFRcr in m L/min/1.73m2 is based the CKD-EPI 2020 equation that does not use a race coefficient. Blood Venous blood specimen / Unknown Venipuncture / Unknown 03/19/2025 12:52 AM EDT 03/19/2025 1:07 AM EDT us Abbe Ramires MD LAB BLOOD ORDERABLES Final Resul t [facility] [address] [place] [address] * Morphology (02/27/2025 11:23 PM EDT) RBC Morphology RBC Morphology Consistent with Indices and RDW LAB HEMATOLOGY METHOD 02/27/2025 11:58 PM EDT [facility] Platelet Estimate Platelet smear estimate consistent with automated count LAB HEMATOLOGY METHOD 02/27/2025 11:58 PM EDT [facility] Blood Venous blood specimen / Unknown Venipuncture / Unknown 02/27/2025 11:23 PM EDT 02/27/2025 11:25 PM EDT García Matias MD LAB BLOOD ORDERABLES Final Result [facility] [address] [place] [address] * (ABNORMAL) Manual Differential (02/27/2025 11:23 PM EDT) Blasts % 0 % LAB HEMATOLOGY METHOD 02/27/2025 11:58 PM EDT [facility] Promyelocytes % 0 % LAB HEMATOLOGY METHOD 02/27/2025 11:58 PM EDT [facility] Myelocytes % 4 % LAB HEMATOLOGY METHOD 02/27/2025 11:58 PM EDT [facility] Metamyelocytes % 3 % LAB HEMATOLOGY METHOD 02/27/2025 11:58 PM EDT [facility] Neutrophils % 43 % LAB HEMATOLOGY METHOD 02/27/2025 11:58 PM EDT [facility] Lymphocytes % 20 % LAB HEMATOLOGY METHOD 02/27/2025 11:58 PM EDT [facility] Reactive Lymphocytes % 0 % LAB HEMATOLOGY METHOD 02/27/2025 11:58 PM EDT [facility] Monocytes % 30 % LAB HEMATOLOGY METHOD 02/27/2025 11:58 PM EDT [facility] Eosinophils % 0 % LAB HEMATOLOGY METHOD 02/27/2025 11:58 PM EDT [facility] Basophils % 0 % LAB HEMATOLOGY METHOD 02/27/2025 11:58 PM EDT [facility] Blasts Absolute 0.00 10*3/UL LAB HEMATOLOGY METHOD 02/27/2025 11:58 PM EDT [facility] Promyelocytes Absolute 0.00 10*3/uL LAB HEMATOLOGY METHOD 02/27/2025 11:58 PM EDT [facility] Myelocytes Absolute 0.29 10*3/uL LAB HEMATOLOGY METHOD 02/27/2025 11:58 PM EDT [facility] Metamyelocytes Absolute 0.22 10*3/uL LAB HEMATOLOGY METHOD 02/27/2025 11:58 PM EDT [facility] Neutrophils Absolute 3.14 1.60 - 6.10 10*3/uL LAB HEMATOLOGY METHOD 02/27/2025 11:58 PM EDT [facility] Lymphocytes Absolute 1.46 1.20 - 3.90 10*3/uL LAB HEMATOLOGY METHOD 02/27/2025 11:58 PM EDT [facility] Reactive Lymphocytes Absolute 0.00 10*3/uL LAB HEMATOLOGY METHOD 02/27/2025 11:58 PM EDT [facility] Monocytes Absolute 2.19(H) 0.30 - 0.90 10*3/uL LAB HEMATOLOGY METHOD 02/27/2025 11:58 PM EDT [facility] Eosinophils Absolute 0.00 0.00 - [...] ORDERABLES Final Result [facility] [address] [place] [address] * hCG qualitative (02/27/2025 11:23 PM EDT) Test Negative Negative 02/27/2025 11:47 PM EDT [facility] Blood Venous blood specimen / Unknown Venipuncture / Unknown 02/27/2025 11:23 PM EDT 02/27/2025 11:25 PM EDT Narrative [facility] - 02/27/2025 11:47 PM EDT Reference Range: Males and non- females: Negative. us García Matias MD LAB BLOOD ORDERABLES Final Result Performing Organization Address City/[facility]/ZIP Co de Phone Number [facility] [address] [place] [address] * Magnesium (02/27/2025 11:23 PM EDT) Magnesium, Plasma 2.2 1.9 - 2.4 mg/dL 02/27/2025 11:47 PM EDT [facility] Blood Venous blood specimen / Unknown Venipuncture / Unknown 02/27/2025 11:23 PM EDT 02/27/2025 11:25 PM EDT us García Matias MD LAB BLOOD ORDERABLES Final Result [facility] [address] [place] [address] * (ABNORMAL) CMP (02/27/2025 11:23 PM EDT) Only the most recent of2 resultswithin the time period is included. Glucose, Plasma 110(H) 74 - 99 mg/dL 02/27/2025 11:47 PM EDT [facility] BUN, Plasma 11 7 - 21 mg/dL 02/27/2025 11:47 PM EDT [facility] Creatinine, Plasma 0.80 0.60 - 1.10 mg/dL 02/27/2025 11:47 PM EDT [facility] BUN/Creatinine Ratio 14 02/27/2025 11:47 PM EDT [facility] Sodium, Plasma 142 136 - 145 mmol/L 02/27/2025 11:47 PM EDT [facility] Potassium, Plasma 4.5 3.6 - 4.9 mmol/L 02/27/2025 11:47 PM EDT [facility] Chloride, Plasma 105 97 - 107 mmol/L 02/27/2025 11:47 PM EDT [facility] CO2, Plasma 26 22 - 29 mmol/L 02/27/2025 11:47 PM EDT [facility] Anion Gap 11 6 - 16 mmol/L 02/27/2025 11:47 PM EDT [facility] Total Calcium, Plasma 9.3 8.9 - 10.2 mg/dL 02/27/2025 11:47 PM EDT [facility] Total Protein 6.1(L) 6.3 - 7.9 g/dL 02/27/2025 11:47 PM EDT [facility] Albumin, Plasma 3.9 3.5 - 5.2 g/dL 02/27/2025 11:47 PM EDT [facility] AST, Plasma 29 10 - 35 U/L 02/27/2025 11:47 PM EDT [facility] ALT, Plasma 27 10 - 35 U/L 02/27/2025 11:47 PM EDT [facility] Alkaline Phosphatase, Plasma 132(H) 35 - 104 U/L 02/27/2025 11:47 PM EDT [facility] Total Bilirubin, Plasma <0.2(L) 0.2 - 1.1 mg/dL 02/27/2025 11:47 PM EDT [facility] eGFRcr 95.1 mL/min/1.7 3m*2 02/27/2025 11:47 PM EDT [facility] Comment:Reported eGFRcr in m L/min/1.73m2 is based the CKD-EPI 2020 equation that does not use a race coefficient. Blood Venous blood specimen / Unknown Venipuncture / Unknown 02/27/2025 11:23 PM EDT 02/27/2025 11:25 PM EDT us García Matias MD LAB BLOOD ORDERABLES Final Result Performing Organization Address City/[facility]/ZIP Co de Phone Number [facility] [address] [place] [address] * ED HIV 1/2 Antibody/Antigen Screen w/Reflex to HIV 1/2 Differentiation (02/07/2025 5:00 PM EDT) HIV 1 & 2 Antibody/Antigen Screen Non Reactive Non Reactive 02/07/2025 7:11 PM EDT [facility] Comment:Screening for HIV 1 & 2 antibodies, and P24 antigen is NONREACTIVE. No confirmatory testing is required. Blood Venous blood specimen / Unknown Venipuncture / Unknown 02/07/2025 5:00 PM EDT 02/07/2025 5:10 PM EDT us Kunal Velázquez MD LAB BLOOD ORDERABLES Final Resul t [facility] [address] [place] [address] * Hepatitis C Virus (HCV) Quantitative PCR - ED (02/07/2025 5:00 PM EDT) [facility] Hepatitis C Virus (HCV) Quantitative Interpretation Not Detected Not Detected. 02/08/2025 2:54 PM EDT [facility] Blood Venous blood specimen / Unknown Venipuncture / Unknown 02/07/2025 5:00 PM EDT 02/07/2025 5:10 PM EDT Narrative [facility] - 02/08/2025 2:54 PM EDT [employer] M2000 HCV test is a Real Time [...] FDA approved for clinical use. us Kunal Velázquez MD LAB BLOOD ORDERABLES Final Resul t Performing Organization Address City/[facility]/ZIP Co de Phone Number [facility] [address] [place] [address] * (ABNORMAL) Hepatitis C Antibody - ED (02/07/2025 5:00 PM EDT) [facility] Hepatitis C Antibody Positive(A ) Negative 02/07/2025 6:33 PM EDT [facility] Blood Venous blood specimen / Unknown Venipuncture / Unknown 02/07/2025 5:00 PM EDT 02/07/2025 5:10 PM EDT us Knual Velázquez MD LAB BLOOD ORDERABLES Final Resul t [facility] [address] [place] [address] * (ABNORMAL) CBC (02/07/2025 5:00 PM EDT) [facility] WBC Count 3.22(L) 3.70 - 10.30 10*3/uL LAB HEMATOLOGY METHOD 02/07/2025 5:29 PM EDT [facility] RBC Count 3.44(L) 3.90 - 5.20 10*6/uL LAB HEMATOLOGY METHOD 02/07/2025 5:29 PM EDT [facility] HGB 10.4(L) 11.2 - 15.7 g/dL LAB HEMATOLOGY METHOD 02/07/2025 5:29 PM EDT [facility] HCT 31.8(L) 34.0 - 45.0 % LAB HEMATOLOGY METHOD 02/07/2025 5:29 PM EDT [facility] Platelet Count 212 155 - 369 10*3/uL LAB HEMATOLOGY METHOD 02/07/2025 5:29 PM EDT [facility] MCV 92 79 - 98 fL LAB HEMATOLOGY METHOD 02/07/2025 5:29 PM EDT [facility] MCH 30.2 26.0 - 32.0 pg LAB HEMATOLOGY METHOD 02/07/2025 5:29 PM EDT [facility] MCHC 32.7 30.7 - 35.5 g/dL LAB HEMATOLOGY METHOD 02/07/2025 5:29 PM EDT [facility] RDW 13.7 11.5 - 14.5 % LAB HEMATOLOGY METHOD 02/07/2025 5:29 PM EDT [facility] MPV 10.4 8.8 - 12.5 fL LAB HEMATOLOGY METHOD 02/07/2025 5:29 PM EDT [facility] nRBC 1.2(H) <=0.0 per 100 WBCs LAB HEMATOLOGY METHOD 02/07/2025 5:29 PM EDT [facility] Blood Venous blood specimen / Unknown Venipuncture / Unknown 02/07/2025 5:00 PM EDT 02/07/2025 5:09 PM EDT us Kunal Velázquez MD LAB BLOOD ORDERABLES Final Resul t Performing Organization Address City/State/[facility] Co de Phone Number [facility] [address] [place] [address] from Last 3 Months Insurance * Guarantor: Anne Kearney Account Type Relation to Patient Date of Phone Billing Address Personal/Family Self 1985 [address] [place] [address] [employer] Care Teams Assembler Carbon Brushes Relationship Specialty Start Date End Date Pcp, Mounika [address] [place] [address] PCP - General Family Medicine 02/07/25
--- OUTSIDE RECORDS SUMMARY | 2025-03-21 04:28 | XMS_ITS | Encounter Summary ---
Author Organization [place] [address] Care Team Providers Care Dietetic Technician Registered Name Role Phone Rodriguez Lindo Primary Care Provider +1- [phone] Poli Felix RN Unavailable Unavailable Encounter Details Date Type Department Care Team (Late st Contact Info) Description 02/01/2025 Social Work [facility] Cancer Care [facility] Dr. Dominguez, [facility] Teresa Parrish, [facility] Social History Tobacco Use Types Packs/Day Years [...] 02/01/2025 8:00 AM Laisha Bee MA * [place] Suicide Severity Rating Scale (Q shift for [...] - 02/01/2025 10:54 AM EDT 02/01/25 1052 Resaw Operator Assessment Referred By Patient request Disease/[place] [employer]umber Assignment Breast cancer Referral Location: Infusion Reason for Referral Financial Identified Needs Adjustment to illness;Education/Information;Food Insecurity;Financial issues Social Work Interventions Brief Couseling/Support;Education/Information;Financial/Shaw;Community Re ferral;Nourish CREDIT BALANCE SPECIALIST met with Patient in infusion - Patient continues to struggle financially and is residing with her son in [place]. Patient [facility] today while in [place]. CREDIT BALANCE SPECIALIST communicated with Deirdre from [employer] and Patient can be serviced with food delivery through [employer]. CREDIT BALANCE SPECIALIST sent referral. CREDIT BALANCE SPECIALIST also completed [employer] referral to assist Patient financially to offset fuel costs. CREDIT BALANCE SPECIALIST following. documented in this encounter Plan of Treatment Upcoming Encounters Date Type Department Care Team (Late st Contact Info) Description 04/15/2025 8:45 AM EDT Appointment [facility] [place] [address] 04/15/2025 9:15 AM EDT Appointment [facility] [place] [address] Vane Hollingsworth MD [address] [place] [phone] documented as of this encounter Visit Diagnoses Not on filedocumented in this encounter Care Teams Dietetic Technician Registered Relationship Specialty Start Date End Date [facility] [address] [place] [id number] PCP - General Clinic/Center - [facility] ([facility]) 12/03/16 Poli Felix, PAMELA Registered Nurse Infusion Therapy 02/01/25 02/08/25 documented as of this encounter
--- OUTSIDE RECORDS SUMMARY | 2025-03-21 04:28 | XMS_ITS | Encounter Summary ---
Author Organization [place] [address] Care Team Providers Care Feed Miller Name Role Phone Rodriguez Lindo Primary Care Provider +1- [phone] Eden Noble RN Unavailable Unavailable Encounter Details Date Type Department Care Team (Late st Contact Info) Description 02/09/2025 Nutrition Cancer Care Medical Oncology [place] [id number] Marika Damon RD, LD Social History Tobacco [...] Estimated Nutrition Needs: kcals/day needs: 22-25 kcal/kg (1063-3512) gm protein/day needs: 1.2-1.5 gm/kg (98-122) Fluids [...] Tips for increasing calories & protein SHAGUFTA Cartagena, RD, LD documented in this encounter Plan of Treatment Upcoming Encounters Date Type Department Care Team (Late st Contact Info) Description 04/15/2025 8:45 AM EDT Appointment [facility] [place] [address] 04/15/2025 9:15 AM EDT Appointment [facility] [place] [address] Vane Hollingsworth MD [address] [place] [phone] documented as of this encounter Visit Diagnoses Not on filedocumented in this encounter Care Teams Feed Miller Relationship Specialty Start Date End Date [facility] [address] [place] [id number] PCP - General Clinic/Center - [facility] ([facility]) 12/03/16 Eden Noble RN Registered Nurse Infusion Therapy 02/09/25 02/09/25 documented as of this encounter
--- OUTSIDE RECORDS SUMMARY | 2025-03-21 04:28 | XMS_ITS | Encounter Summary ---
Demographics Address [address] [place] [address] Mobile Phone Email Address Preferred Language en Marital Status Mandaen Affiliation Unknown Race White Ethnic Group Not or Lati no Author Organization Healthcare Address [address] [place] [address] Care Team Providers Care Framing Consultant Name Role Phone Pcp, No Primary Care [...] on filedocumented in this encounter Care Teams Framing Consultant Relationship Specialty Start Date End Date Pcp, No [address] [place] [address] PCP - General Family Medicine 02/07/25 documented as of this encounter
--- OUTSIDE RECORDS SUMMARY | 2025-03-21 04:28 | XMS_ITS | Encounter Summary ---
Author Organization [place] [address] Care Team Providers Care Sales Professional Bilingual Name Role Phone Rodriguez Lindo Primary Care Provider +1- [phone] Eden Noble RN Unavailable Unavailable Reason for Visit * Reason Onset Date Comments Medication Refill 02/09/2025 Encounter Details Date Type Department Care Team (Late st Contact Info) Description 02/09/2025 [facility]ill [facility] [place] [address] Ana Rosa Del Angel, MARTÍN [address] [place] [address] Medication Refill Social History Tobacco Use Types [...] Refill chronic pain medication to fill on 02/13 date. Sent to MD for signature. documented in this encounter Plan of Treatment Upcoming Encounters Date Type Department Care Team (Late st Contact Info) Description 04/15/2025 8:45 AM EDT Appointment [place] [address] 04/15/2025 9:15 AM EDT Appointment [facility] [place] [address] Vane Hollingsworth MD [address] [place] [phone] documented as of this encounter Visit Diagnoses [...] documented as of this encounter Care Teams Sales Professional Bilingual Relationship Specialty Start Date End Date Rodriguez Lindo [address] [place] [id number] PCP - General Clinic/Center - [facility] ([facility]) 12/03/16 Eden Noble, RN Registered Nurse Infusion Therapy 02/09/25 02/09/25 documented as of this encounter
--- OUTSIDE RECORDS SUMMARY | 2025-03-21 04:28 | XMS_ITS | Encounter Summary ---
Author Organization [place] [address] Care Team Providers Care Representative Name Role Phone Rodriguez Lindo Primary Care Provider +1- [phone] Poli Felix RN Unavailable Unavailable Encounter Details Date Type Department Care Team (Late st Contact Info) Description 02/03/2025 Nutrition [facility] [place] [phone] Marika Damon RD,JOSÉ MIGUEL Social History Tobacco [...] AM EDT Appointment [facility] [place], [place] [phone] 04/15/2025 9:15 AM EDT Appointment [facility] [place] [address] Vane Hollingsworth MD [address] [place] [phone] documented as of this encounter Visit Diagnoses Not on filedocumented in this encounter Care Teams Representative Relationship Specialty Start Date End Date [facility] [address] [place] [address] PCP - General Clinic/Center - [facility] ([facility]) 12/03/16 Poli Felix RN Registered Nurse Infusion Therapy 02/01/25 02/08/25 documented as of this encounter
--- OUTSIDE RECORDS SUMMARY | 2025-03-21 04:28 | XMS_ITS | Encounter Summary ---
Demographics Address [address] [place] [phone] Mobile Phone Email Address Preferred Language en Marital Status Pentecostal Affiliation Unknown Race White Ethnic Group Not or Lati no Author Organization Healthcare Address [address] [place] [address] Care Team Providers Care Chemical Inspector Name Role Phone Pcp, No Primary [...] on filedocumented in this encounter Care Teams Chemical Inspector Relationship Specialty Start Date End Date Pcp, No [address] [place] [address] PCP - General Family Medicine 02/07/25 documented as of this encounter
--- OUTSIDE RECORDS SUMMARY | 2025-03-21 04:29 | XMS_ITS | Clinical Summary ---
Author Organization [facility] LIONELScott SHERLY Address [address] [place] [address] Phone Care Team Providers Care Sharples Machine Operator Name Role Phone Rodriguez Lindo Primary Care Provider +1- [phone] Vane Hollingsworth MD Unavailable +1- [phone] Allergies Active Allergy Reactions Criticality Noted Date Comments Hydrocodone-Acetaminophen Itching Medium 02/10/2011 Ketorolac Other (See Comments),Itching,Rash Medium 02/13/2024 unknown Tramadol Itching,Rash Medium 07/23/2011 Medications albuterol (PROVENTIL HFA;VENTOLIN HFA) 90 mcg/actuation Inhl HFA Aerosol Inhaler Inhale 2 Puffs into the lungs every 6 hours as needed. 2 Active buPROPion (WELLBUTRIN SR) 150 mg Oral tablet sustained-release 12 hrIndications:Lesyl gnant neoplasm of overlapping sites of left [...] 3 hours as needed. 450 mL 5 02/08/20 26 Active LICE TREATMENT 1 % Top Liquid APPLY TOPICALLY TO AREA FOR 1 DOSE 5 Active oxyCODONE-acetamin ophen (PERCOCET) 10-325 mg Oral TabletIndications: Low back pain, unspecified back pain laterality, unspecified chronicity, unspecified whether sciatica present Take 1 Tablet by mouth every 6 hours as needed for Chronic Pain (G89.29). Do not fill before 02/13 date. 76 Tablet 5 Active Active Problems Problem Noted Date Diagnosed Date Malignant neoplasm of overla pping sites of left breast in female, estrogen receptor positive 01/14/2025 Chronic thoracic back pain 11/01/2017 Polysubstance abuse 11/01/2017 Acute septic pulmonary embolism without acute co r pulmonale 11/01/2017 Acute chest pain 11/01/2017 Sepsis 11/01/2017 Right upper quadrant pain 11/01/2017 Encounters Date Type Department Care Team Description 03/21/2025 1:02 AM EDT - 03/21/2025 2:20 AM EDT Emergency [facility] [place] [address] Lupe Finney MD Chest pain, unspecified type (Primary Dx); Left against medical advice Discharge Disposition: Left Against Medical Advice 03/18/2025 9:30 AM EDT - 03/18/2025 11:59 PM EDT Hospital Encounter [facility] [place] [address] Malignant neoplasm of overlapping sites of left breast in female, estrogen receptor positive (HCC) (Primary Dx) Discharge Disposition: Home or Self Care 03/16/2025 8:22 AM EDT - 03/16/2025 11:59 PM EDT Hospital Encounter [facility] [place] [address] Ana Rosa Del Angel, MARTÍN Malignant neoplasm of overlapping sites of left breast in female, estrogen receptor positive (HCC) (Primary Dx); Encounter for antineoplastic chemotherapy Discharge Disposition: Home or Self Care 03/16/2025 8:13 AM EDT - 03/16/2025 8:21 AM EDT [facility] [place] [address] Malignant neoplasm of overlapping sites of left breast in female, estrogen receptor positive (HCC) (Primary Dx) Discharge Disposition: Home or Self Care 03/16/2025 8:12 AM EDT Hospital Encounter [place] [address] Malignant neoplasm of overlapping sites of left breast in female, estrogen receptor positive (HCC) (Primary Dx) Discharge Disposition: Home or Self Care 02/22/2025 1:14 PM EDT - 02/22/2025 11:59 PM EDT Hospital Encounter [place] [address] Malignant neoplasm of overlapping sites of left breast in female, estrogen receptor positive (HCC) (Primary Dx) Discharge Disposition: Home or Self Care 02/21/2025 9:20 AM EDT - 02/21/2025 11:59 PM EDT Hospital Encounter [place] [address] Malignant neoplasm of overlapping sites of left breast in female, estrogen receptor positive (HCC) (Primary Dx) Discharge Disposition: Home or Self Care 02/21/2025 8:27 AM EDT - 02/21/2025 9:19 AM EDT Hospital Encounter [facility] [place] [address] Vane Hollingsworth MD Malignant neoplasm of overlapping sites of left breast in female, estrogen receptor positive (HCC) (Primary Dx) Discharge Disposition: Home or Self Care 02/21/2025 8:13 AM EDT - 02/21/2025 8:26 AM EDT Hospital Encounter [place] [address] Malignant neoplasm of overlapping sites of left breast in female, estrogen receptor positive (HCC) (Primary Dx) Discharge Disposition: Home or Self Care 02/14/2025 11:04 AM EDT - 02/14/2025 11:59 PM EDT Hospital Encounter [facility] [place] [address] Malignant neoplasm of overlapping sites of left breast in female, estrogen receptor positive (HCC) (Primary Dx) Discharge Disposition: Home or Self Care 02/14/2025 10:51 AM EDT - 02/14/2025 11:03 AM EDT Hospital Encounter [place] [address] Malignant neoplasm of overlapping sites of left breast in female, estrogen receptor positive (HCC) (Primary Dx); Antineoplastic chemotherapy induced anemia Discharge Disposition: Home or Self Care 02/09/2025 9:00 AM EDT - 02/09/2025 11:59 PM EDT Hospital Encounter [place] [address] Malignant neoplasm of overlapping sites of left breast in female, estrogen receptor positive (HCC) (Primary Dx) Discharge Disposition: Home or Self Care 02/09/2025 8:30 AM EDT - 02/09/2025 8:59 AM EDT Hospital Encounter [facility] [place] [address] Ana Rosa Del Angel APRN Antineoplastic chemotherapy induced anemia (Primary Dx) Discharge Disposition: Home or Self Care 02/09/2025 8:15 AM EDT - 02/09/2025 8:29 AM EDT Hospital Encounter [facility] [address] Malignant neoplasm of overlapping sites of left breast in female, estrogen receptor positive (HCC) (Primary Dx) Discharge Disposition: Home or Self Care 02/09/2025 Refill [facility] [place] [address] Ana Rosa Del Angel APRN Medication Refill 02/09/2025 Nutrition [facility] [place], [place] [phone] Marika Damon RD,LD 02/07/2025 Refill [facility] [place], [place] [phone] Ana Rosa Del Angel APRN Medication Refill 02/07/2025 Telephone [facility] [place], [place] [phone] Vane Hollingsworth MD Symptom Call 02/03/2025 Orders [place] [address] Sosa Ernst APRN Malignant neoplasm of overlapping sites of left breast in female, estrogen receptor positive (HCC) (Primary Dx) 02/03/2025 [facility] Cancer [facility] [place] [address] Marika Damon, RD,LD 02/02/2025 1:30 PM EDT - 02/02/2025 11:59 PM EDT Hospital Encounter [place] [address] Malignant neoplasm of overlapping sites of left breast in female, estrogen receptor positive (HCC) (Primary Dx) Discharge Disposition: Home or Self Care 02/01/2025 9:08 AM EDT - 02/01/2025 11:59 PM EDT Hospital Encounter [place] [address] Malignant neoplasm of overlapping sites of left breast in female, estrogen receptor positive (HCC) (Primary Dx) Discharge Disposition: Home or Self Care 02/01/2025 8:26 AM EDT - 02/01/2025 9:07 AM EDT Hospital Encounter [facility] [place] [address] Ana Rosa Del Angel APRN Malignant neoplasm of overlapping sites of left breast in female, estrogen receptor positive (HCC) (Primary Dx); Encounter for antineoplastic chemotherapy; Other insomnia Discharge Disposition: Home or Self Care 02/01/2025 8:00 AM EDT - 02/01/2025 8:25 AM EDT Hospital Encounter [place] [address] Malignant neoplasm of overlapping sites of left breast in female, estrogen receptor positive (HCC) (Primary Dx) Discharge Disposition: Home or Self Care 02/01/2025 Social Work [facility] Cancer [facility] [place] [address] Teresa Parrish, EXHIBIT DESIGNER 01/19/2025 Social Work [facility] [place] [address] Sekou Berrios, EXHIBIT DESIGNER 01/14/2025 2:40 PM EDT - 01/14/2025 11:59 PM EDT Hospital Encounter [place] [address] Malignant neoplasm of overlapping sites of left breast in female, estrogen receptor positive (HCC) (Primary Dx); Low back pain, unspecified back pain laterality, unspecified chronicity, unspecified whether sciatica present Discharge Disposition: Home or Self Care 01/14/2025 11:30 AM EDT - 01/14/2025 2:39 PM EDT Hospital Encounter [facility] [place], [place] [phone] Vane Hollingsworth MD Malignant neoplasm of overlapping sites of left breast in female, estrogen receptor positive (HCC) (Primary Dx); Low back pain, unspecified back pain laterality, unspecified chronicity, unspecified whether sciatica present Discharge Disposition: Home or Self Care 01/14/2025 Social Work [facility] Cancer Care [place] [address] Teresa Parrish MSW 01/14/2025 Telephone [facility] Spine [address] [address] Khadijah Garza, Parts Back Counter Man New Patient 01/11/2025 Telephone [facility] [place], [place] [phone] Vane Hollingsworth MD Schedule Appointment (Consult) from [...] Mass Index 28.89 03/21/2025 12:31 AM EDT Plan of Treatment Upcoming Encounters Date Type Department Care Team (Late st Contact Info) Description 04/15/2025 8:45 AM EDT Appointment [place] [address] 04/15/2025 9:15 AM EDT Appointment [facility] [place] [address] Vane Hollingsworth MD [address] [place] [address] Health Maintenance Due Date Last Done Comments Annual Wellness Exam 01/29/1987 Hepatitis B Vaccine (1 of 3 - 19+ 3-dose series) 01/29/2003 Cervical Cancer Screening 01/29/2005 Pap Smear 01/29/2005 HPV/Pap Cotest 01/29/2014 Pneumococcal Vaccine 0-49 (2 of 2 - PCV) 06/28/2022 06/28/2021 COVID-19 Vaccine (2 - Pfizer risk series) 10/27/2023 10/06/2023 Influenza Vaccine (#1) 2025 06/11/2024, 2023 Breast Cancer Screening 06/18/2026 06/18/20, 06/18/2024, 06/14/2024 DTaP/TDaP/Td (4 - Td or Tdap) 10/27/2033 10/27/2023, 06/28/2021, 03/08/2011, Additional history exists Meningococcal B Vaccine Aged Out No l onger eligible based on patient's age to complete this topic Procedures Procedure Name Priority Date/Time Associated Diagnosis Comments LACTIC ACID STAT 03/21/2025 2:07 AM EDT TROPONIN-T HIGH SENSITIVITY BASELINE W/ REFLEX STAT 03/21/2025 2:06 AM EDT COMPREHENSIVE METABOLIC PANEL STAT 03/21/2025 2:06 AM EDT CBC WITH DIFF STAT 03/21/2025 2:06 AM EDT EK EKG 12 LEAD STAT 03/21/2025 1:40 AM EDT Procedure Note - 03/21/2025 1:40 AM EDTThis note is in progress. NOTICE: Preliminary tracing available for review; Final Interpretation byphysician to follow. IMPRESSION [facility] Test Date: 2025-03-21 Pat Name: ROSIE KEARNEY Department: DEPID Room: 09 Gender: Female Casing Running Machine Tender: : 1985 Requested By: MARTIN CASSIDY Order Number: [id number] Reading MD: Measurements Intervals [place] Rate: 87 P: 30 MO: 148 QRS: 52 QRSD: 96 T: 49 QT: 362 QTc: 438 Interpretive Statements SINUS RHYTHM COMPREHENSIVE METABOLIC PANEL STAT 03/16/2025 8:20 AM [...] present from Last 3 Months Results * LACTIC ACID (03/21/2025 2:07 AM EDT) Pathologist [facility] Lactic Acid 1.1 0.5 - 1.9 mmol/L 03/21/2025 2:26 AM EDT [facility] Blood VENOUS BLOOD / Unknown Venipuncture / Unknown 03/21/2025 2:07 AM EDT 03/21/2025 2:07 AM EDT us Martin Cassidy SPECIAL INVESTIGATION UNIT INVESTIGATOR CHEMISTRY ORDERABLES Final Res ult [facility] [address] [facility] , [address] [place] [id number] * TROPONIN-T HIGH SENSITIVITY BASELINE W/ REFLEX (03/21/2025 2:06 AM EDT) Pathologist [facility] sa-gAhayyrsn-I <6 <14 ng/L 03/21/2025 2:29 AM EDT [facility] Blood VENOUS BLOOD / Unknown Venipuncture / Unknown 03/21/2025 2:06 AM EDT 03/21/2025 2:06 AM EDT Narrative [facility] - 03/21/2025 2:29 AM EDT Ingestion of manda doses of biotin (>5 mg/day) taken within 8 hours of drawing blood sample can interfere with this immunoassay test. us Martin Cassidy SPECIAL INVESTIGATION UNIT INVESTIGATOR CHEMISTRY ORDERABLES Final Res ult [facility] [address] [facility] , [place] [address] * (ABNORMAL) CBC WITH DIFF (03/21/2025 2:06 AM EDT) Only the most recent of7 resultswithin the time period is included. WBC 20.0(H) 3.7 - 10.3 x10(3)/mcL 03/21/2025 2:36 AM EDT [facility] RBC 2.97(L) 3.90 - 5.20 x10(6)/mcL 03/21/2025 2:36 AM EDT [facility] Hgb 9.2(L) 11.2 - 15.7 g/dL 03/21/2025 2:36 AM EDT [facility] Hct 28.4(L) 34.0 - 45.0 % 03/21/2025 [...] LLC Neut # 19.0(H) 1.6 - 6.1 x10(3)/[facility] 03/21/2025 2:36 AM EDT [facility] Lymph # 0.6(L) 1.2 - 3.9 x10(3)/mcL 03/21/2025 2:36 AM EDT [facility] Barren # 0.2(L) 0.3 - 0.9 x10(3)/[facility] 03/21/2025 2:36 AM EDT [facility] [...] 2:06 AM EDT us Martin Cassidy NP HEMATOLOGY ORDERABLES Final Re sult [facility] [address] [facility] , [place] [address] * (ABNORMAL) COMPREHENSIVE METABOLIC PANEL (03/21/2025 2:06 AM EDT) Only the most recent of6 resultswithin the time period is included. Sodium 140 136 - 145 mmol/L 03/21/2025 2:29 AM EDT [facility] Potassium 3.6 3.5 - 5.0 mmol/L 03/21/2025 2:29 AM EDT [facility] Chloride 107 98 - 107 mmol/L 03/21/2025 2:29 AM EDT [facility] Total CO2 22 22 - 29 mmol/L 03/21/2025 2:29 AM EDT [facility] Anion Gap 11 7 - 16 mmol/L 03/21/2025 2:29 AM EDT [facility] Calcium 9.0 8.6 - 10.4 mg/dL 03/21/2025 2:29 AM EDT [facility] Glucose Lvl 89 70 - 99 mg/dL 03/21/2025 2:29 AM EDT [facility] BUN 12 6 - 20 mg/dL 03/21/2025 2:29 AM EDT [facility] Creatinine 0.69 0.51 - 1.30 mg/dL 03/21/2025 2:29 AM EDT [facility] Albumin 4.0 3.5 - 5.2 gm/dL 03/21/2025 2:29 AM EDT [facility] Total Protein 6.2(L) 6.4 - 8.3 gm/dL 03/21/2025 2:29 AM EDT [facility] Bili Total 0.3 0.2 - 1.3 mg/dL 03/21/2025 2:29 AM EDT [facility] ALT 14 <=41 U/L 03/21/2025 2:29 AM EDT [facility] AST 16 <=40 U/L 03/21/2025 2:29 AM EDT [facility] Alk Phos 95 36 - 123 U/L 03/21/2025 2:29 AM EDT [facility] eGFR (CKD-EPIcr 2020) 111 >=60 mL/min/1.7 3 m2 03/21/2025 2:29 AM EDT [facility] Comment:Estimated GFR was ca lculated using the CKD-EPIcr (2020) equation refit without race. The equation is recommended by the National Kidney Foundation - [place] [employer] of Nephrology Task Force. Blood VENOUS BLOOD / Unknown Venipuncture / Unknown 03/21/2025 2:06 AM EDT 03/21/2025 2:06 AM EDT Martin Munshani SPECIAL INVESTIGATION UNIT INVESTIGATOR CHEMISTRY ORDERABLES Final Res ult [facility] [address] [facility] , [place] [address] * (ABNORMAL) RETICULOCYTE PANEL DIAGNOSTIC (02/14/2025 11:01 AM EDT) Retic Cnt Auto 3.9(H) 0.9 - 2.5 % 02/14/2025 11:15 AM EDT [facility] Retic # 135.5(H) 40.0 - 110.0 x10(3)/mcL 02/14/2025 11:15 AM EDT [facility] Imm. Retic Fraction % 29.1(H) 3.1 - 17.6 % 02/14/2025 11:15 AM EDT [facility] [employer] [employer] [employer] Retic Hgb 35.1 28.0 - 38.0 pg 02/14/2025 11:15 AM EDT [facility] Blood VENOUS STRUCTURE / Unknown Port / Unknown 02/14/2025 11:01 AM EDT 02/14/2025 11:04 AM EDT Narrative [facility] - 02/14/2025 11:15 AM EDT Reticulocyte hemoglobin [...] al. 2014. Am J Clin Pathol 142:506-512. (4)Goodnough, L., et al. 2010. Blood 116:5489-5041. Ana Rosa Coffey O[employer] UNEMPLOYMENT CLAIMS ADJUDICATOR HEMATOLOGY ORDERABLES Ernestine l Result Performing Organization Address [facility] Co de Phone Number [facility], [address] , [place] [address] * IRON+TIBC (02/14/2025 11:01 AM EDT) Iron 63 30 - 160 mcg/dL 02/14/2025 12:02 PM EDT [facility] Transferrin 205 200 - 360 mg/dL 02/14/2025 12:02 PM EDT [facility] Transferrin Saturation 22 20 - 50 % 02/14/2025 12:02 PM EDT [facility] TIBC 287 250 - 400 mcg/dL 02/14/2025 12:02 PM EDT [facility] [employer], [facility] Blood VENOUS STRUCTURE / Unknown Port / Unknown 02/14/2025 11:01 AM EDT 02/14/2025 11:04 AM EDT Ana Rosa Shi'Onur UNEMPLOYMENT CLAIMS ADJUDICATOR CHEMISTRY ORDERABLES Final Result Performing Organization Address [facility] Phone Number [facility] [employer] [address] , [place] [phone] * FERRITIN (02/14/2025 11:01 AM EDT) Ferritin 144 30 - 150 ng/mL 02/14/2025 12:02 PM EDT [facility] [employer], [facility] Comment:The lower threshold of 30 is [...] AM EDT 02/14/2025 11:04 AM EDT Narrative [facility] - 02/14/2025 12:02 PM EDT Ingestion of manda doses of biotin (>5 mg/day) taken within 8 hours of drawing blood sample can interfere with this immunoassay test. us Ana Rosa Del Angel UNEMPLOYMENT CLAIMS ADJUDICATOR CHEMISTRY ORDERABLES Final Result Performing Organization Address City/[facility]/ZIP Co de Phone Number [facility] [address] [facility], [place] [address] * MAGNESIUM LEVEL (02/09/2025 8:45 AM EDT) Magnesium 2.1 1.6 - 2.4 mg/dL 02/09/2025 9:32 AM EDT [facility] Blood VENOUS STRUCTURE / Unknown Medicare Port / Unknown 02/09/2025 8:45 AM EDT 02/09/2025 8:46 AM EDT us Sosa Ernst UNEMPLOYMENT CLAIMS ADJUDICATOR CHEMISTRY ORDERABLES Ernestine l Result Performing Organization Address City/[facility]/ZIP Co de Phone Number [facility] [address] [place] [phone] from Last 3 Months Insurance [place] [id number] [place] [facility] [place] [address] MDR Advance Directives For more information, please contact: [phone] * Full Code (Latest Code Status on File) Date Activated Date Inactivated Comments 11/01/2017 4:31 PM 11/04/2017 6:30 PM Care Teams Sharples Machine Operator Relationship Specialty Start Date End Date [facility] [address] [place] [address] PCP - General Clinic/Center - [facility] ([facility]) 12/03/16 Vane Hollingsworth MD [address] [place] [address] Internal Medicine-Hematology and Oncology 02/21/25
--- OUTSIDE RECORDS SUMMARY | 2025-03-21 04:29 | XMS_ITS ---
Author Organization [facility] Address [address] [place] [address] Care Team Providers Care Pre Owned Sales Consultant Name Role Phone Avila Puri Erlinda LARSEN Primary Care Provider [phone] Active Problems Patient Care Coordination No te [...]
--- OUTSIDE RECORDS SUMMARY | 2025-03-21 04:29 | XMS_ITS | Clinical Summary ---
[facility] Address [address] [place] [address] Care Team Providers Care Tip Scourer Name Role Phone Avila Puri DO Primary Care Provider [phone] Allergies Active Allergy Reactions Criticality Noted Date [...] Type Department Care Team Description 01/10/[address] [place] [address] Floresita Smith, filing clerk Refill 01/03/[address] [place] [address] Floresita Smith, filing clerk Refill 12/29/[address] [place] [address] Floresita Smith, RN Other 12/20/2024 2:20 PM CDT - 12/20/2024 11:59 PM CDT Hospital Encounter [address] [place] [id number] Invasive lobular carcinoma of left breast in female (HCC) (Primary Dx) Discharge Disposition: Home or Self Care 12/20/[address] [place] [address] Telma Wallace MD Medication Refill 12/20/[address] [place] [address] Telma Wallace MD 12/20/[address] [place] [address] Telma Wallace MD 12/20/[address] [place] [address] Telma Wallace MD Other 12/19/2024 9:41 PM CDT - 12/20/2024 12:01 AM CDT Emergency [facility] Emergency Department [address] [place] [address] Discharge Disposition: LWBS after cleaners from Last 3 Months Family History Relation [...] Diabetes screen 01/29/2019 Lipids 2024 COVID-19 Vaccine ( - 2023- season) 2024 10/06/2023 Flu vaccine [...] on patient's age to complete this topic Additional Health Concerns Infection Onset Date Last Indicated Human Metapneumovirus 10/04/2021 10/04/2021 Insurance [facility] Care Teams Tip Scourer Relationship Specialty Start Date End Date Avila Puri DO [address] [facility] [address] [place], [place] [id number] PCP - General Family Medicine 10/12/20
--- OUTSIDE RECORDS SUMMARY | 2025-03-21 04:29 | XMS_ITS ---
Author Organization [facility] Address [address] [place] [address] Phone Care Team Providers Care Cheese Pancake Roller Name Role Phone Rodriguez Lindo Primary Care Provider [phone] Vane Hollingsworth MD Unavailable [phone] Active Problems Problem Noted Date Diagnosed Date [...] female, estrogen receptor positive (HCC) Treatment Medications cyclophosphamide (CYTOXAN)cy clophosphamide (CYTOXAN) chemo infusionDOCEtaxel (TAXOTERE)DOCEtaxel (TAXOTERE) chemo infusion (< 180 mg) ONCSEH hydration + pre-meds + electrolytes* Plan [...] Treatment Medications Discontinue Reason Plan Provider Cycles [facility] Supportive Care Hyperemesis and Dehydration 02/09/2025 02/24/2025 No medications scheduled. Reorder Vane Hollingsworth MD 1 of 2 cycles started
[2025-03-21 05:04] LABS: Hematocrit 26.8 % (37.0-47.0); Hemoglobin 8.6 g/dL (12.2-16.2); Immature Granulocytes % 17.7 %; Mean Corpuscular HGB Conc 32.1 g/dL (31.8-35.4); Mean Corpuscular Hemoglobin 30.4 pg (27.0-31.2); Mean Corpuscular Volume 94.7 fl (81-99); Nucleated Red Blood Cells % 0 %; Platelet Count 221 K/mm3 (142-424); Red Blood Count 2.83 M/mm3 (4.20-5.40); Red Cell Distribution Width-SD 57.8 fL; White Blood Count 17.4 K/mm3 (4.8-10.8)
[2025-03-21 05:06] LABS: Albumin Level 3.7 g/dl (3.5-5.0); Chloride 104 mmol/L (98-107); Potassium 3.4 mmoL/L (3.5-5.1); Sodium 138 mmol/L (136-145)
[2025-03-21 05:08] LABS: Blood Urea Nitrogen 12 mg/dl (7-17)
[2025-03-21 05:09] LABS: Alanine Aminotransferase 16 U/L (12-78); Albumin/Globulin Ratio 1.6 (1.1-1.8); Alkaline Phosphatase 83 U/L (38-126); Anion Gap 11.4 mEq/L (5-15); Aspartate Amino Transferase 21 U/L (14-36); Bilirubin,Total 0.5 mg/dl (0.2-1.3); Calcium 8.8 mg/dl (8.4-10.2); Carbon Dioxide 26 mmol/L (22.0-30.0); Creatine Kinase 33 U/L (30-135); Creatinine,Serum 0.60 mg/dl (0.52-1.04); Estimated Glomerular Filt Rate 110 ml/min (>60); GFR (African American) 133 ML/MIN (>60); Globulin 2.3 g/dL (1.3-3.2); Glucose 83 mg/dl (74-100); Total Protein,Serum 6.0 g/dl (6.3-8.2)
[2025-03-21] MEDS: LACTATED RINGERS 1000ML 1,000 ML 999 ML IV (05:13)
[2025-03-21] MEDS: ONDANSETRON 4MG/2ML VIAL 4 MG IV (05:13)
[2025-03-21] MEDS: HYDROMORPHONE 2MG/ML SYRINGE 2 MG IV (05:14)
[2025-03-21 05:59] LABS: Total Cells Counted 100
[2025-03-21] MEDS: POTASSIUM CHLORIDE 20MEQ TAB 20 MEQ PO (07:34)
[2025-03-21] MEDS: HYDROMORPHONE 2MG/ML SYRINGE 1 MG IV (07:58)
== END 2025-03-21 09:35 | disposition home or self-care (01) ==
PROVIDERS: Emergency Provider Emergency Medicine
DX: G89.3 Neoplasm related pain (acute) (chronic) (principal); E87.6 Hypokalemia; F17.210 Nicotine dependence, cigarettes, uncomplicated; Z85.3 Personal history of malignant neoplasm of breast; Z92.21 Personal history of antineoplastic chemotherapy
CPT/HCPCS: 80053; 82550; 83605; 85007; 85025; 85027; 96361; 96374; 96375; 96376; 99284; J1171; J1642; J2405; J7120

== ENCOUNTER 2025-03-29 00:48 | Emergency (ER) | payer MEDICAID, SELFPAY ==
--- OUTSIDE RECORDS SUMMARY | 2024-09-15 10:28 | XMS_ITS | Encounter Summary ---
[facility] Address [address] [place] [address] Care Team Providers Care Dye Range Operator Cloth Name Role Phone Avila Puri DO Primary Care Provider Reason for Visit * Auth/Cert (Routine) Specialty Diagnoses / Procedures Referred By Raman t Referred To Contact Diagnoses Malignant neoplasm of unspecified site of left female breast Procedures CHG INTENSITY MODULATED RADIATION TX DLVR SIMPLE CHG CT GUIDANCE RADIATION THERAPY FLDS PLACEMENT CHG THERAPEUTIC RADIOLOGY TX PLANNING COMPLEX CHG BASIC RADIATION DOSIMETRY CALCULATION CHG NTSTY MODUL RADTHX PLN DOSE-VOL HISTOS CHG TX DEVICES DESIGN & CONSTRUCTION COMPLEX CHG CONTINUING MEDICAL PHYSICS CONSLTJ IA WK CHG MLC IMRT DESIGN & CONSTRUCTION PER IMRT PLAN CHG RADIATION TREATMENT MANAGEMENT 5 TREATMENTS CHG RESPIRATORY MOTION MANAGEMENT SIMULATION Referral ID Status Reason Start Date Expiration Date Visits Re quested Visits Authorized [id number] 28 28 Encounter Details Date Type Department Care Team (Late st Contact Info) Description 09/15/2024 8:28 AM SEWING MACHINE TESTER Hospital Encounter [facility] RAD ONC [address] [place] [phone] Social History Tobacco Use Types Packs/Day Years Used Date Smoking Tobacco: Former Cigarettes 0.5 29.6 0 01/17/1995 - 08/19/2024 Passive Smoke Exposure: Past Smokeless Tobacco: Never Alcohol Use Standard Drinks/Week Comments Not Currently 0 (1 standard drink = 0.6 oz pur e alcohol) Last drink around March 2023 AUDIT-C Answer Date Recorded Q1: How often do you have a drink containing alc ohol? Never 10/31/2020 Average Number of Drinks Not on file 021 Frequency of Binge Drinking Not on file 10/10 PHQ-2 Answer Date Recorded Retired Total Score 0 11/08/2021 Abuse Screen Answer Date Recorded Feels Unsafe at Home or Work/School no 12/20/2024 Feels Threatened by Someone no 12/07 Does Anyone Try to Keep You From Having Contact with Others or Doing Things Outside Your Home? no 12/20/2024 Physical Signs of Abuse Present no 12/20/2024 Housing Stability Answer Date Recorded Current Living Arrangements home 09/09 Potentially Unsafe Housing Conditions Not on rosaline e 09/27/2024 Disabilities Answer Date Recorded Difficulty Concentrating, Remembering or Making Decisions no 09/27/2024 Difficulty Managing Errands Independently no 09/27/2024 Education Answer Date Recorded Help with school or training? Not on file Preferred Language Monegasque 09/27/2024 PHQ-2 Answer Date Recorded Patient Health Questionnaire-2 Score 0 10/18/2024 Comments No Sex and Gender Information Value Date Recorded Sex Assigned at Female 02/26/2025 10:23 PM EDT Legal Sex Female 10:15 PM EDT Gender Identity Not on file Sexual Orientation Straight 02/26/2025 10 :23 PM EDT documented as of this encounter Functional Status * Calculated C-SSRS Risk Score (Lifetime/Recent) Answer Date of Assessment Author No Risk Indicated 12/20/2024 12:28 AM DINORAHT Sage Martinez RN * [place] Suicide Severity Rating Scale (Screener/Recent Self-Report) Question Answer Date of Assessment Author 1. Wish to be (Past 1 Month) No 025 12:28 AM Sage Multani RN 2. Non-Specific Active Suici cyndie Thoughts (Past 1 Month) No 12/20/2024 12:28 AM EDT Derrek Martinez ph, RN 6. Suicidal Behavior (Lifetime) No 12:28 AM Sage Multani RN * Question Answer Date of Assessment Author Little interest or pleasure in doing things Not at all 10/18/2024 1:38 PM Beatriz Vasquez MA Feeling down, depressed, or hopeless Not at all 10/18/2024 1:38 PM Vance Vasquez MA Patient Health Questionnaire-2 Score 0 10/18/2024 1:38 PM EST Beatriz Padron MA How difficult have these problems made it for you to do your work, take care of things at home, or get along with other people? Not difficult at all 09/16/2024 3:10 PM Benoit Cota RN documented as of this encounter Plan of Treatment Upcoming Encounters Date Type Department Care Team (Late st Contact Info) Description 06/06/2025 10:30 AM EDT Office Visit [facility] [address] [place] [phone] [place] [address] [place] [address] documented as of this encounter Visit Diagnoses Not on filedocumented in this encounter Care Teams Dye Range Operator Cloth Relationship Specialty Start Date End Date Avila Puri DO [address] [address] [address] [place], [place] [phone] PCP - General Family Medicine 10/05/21 03/01/25 documented as of this encounter
--- OUTSIDE RECORDS SUMMARY | 2024-10-11 10:00 | XMS_ITS | Encounter Summary ---
[facility] [address] [place] [address] Care Team Providers Care Wash Worker Name Role Phone Avila Puri DO Primary [...] Expiration Date Visits Re quested Visits Authorized [id number] 28 28 Encounter Details Date Type Department Care Team (Late st Contact Info) Description 10/11/2024 8:00 AM METAL CONTROL WORKER Hospital Encounter [facility] RAD ONC [address] [place] [phone] Social History Tobacco Use Types Packs/Day [...] or training? Not on file Preferred Language Bangladeshi 09/27/2024 PHQ-2 Answer Date Recorded Patient Health [...] 12:28 AM DINORAHT Sage Martinez RN * [place] Suicide Severity Rating Scale (Screener/Recent Self-Report) Question [...] Description 06/06/2025 10:30 AM EDT Office Visit [facility] [address] [place] [phone] Juan Luis Garza MD [address] [facility] 100 [place] [address] documented as of this encounter Visit Diagnoses Not on filedocumented in this encounter Care Teams Wash Worker Relationship Specialty Start Date End Date Avila Puri DO [address] [address] [address] [place] [address] PCP - General Family Medicine 10/05/21 03/01/25 documented as of this encounter
--- OUTSIDE RECORDS SUMMARY | 2024-11-08 09:20 | XMS_ITS | Encounter Summary ---
[facility] [address] [place] [address] Care Team Providers Care Dress Designer Name Role Phone Avila Puri DO Primary [...] CONSTRUCTION COMPLEX CHG CONTINUING MEDICAL PHYSICS CONSLTJ SD WK CHG MLC IMRT DESIGN & CONSTRUCTION PER IMRT PLAN CHG RADIATION TREATMENT MANAGEMENT 5 TREATMENTS CHG RESPIRATORY MOTION MANAGEMENT SIMULATION Referral ID Status Reason Start Date Expiration Date Visits Re quested Visits Authorized [id number] 28 28 Encounter Details Date Type Department Care Team (Late st Contact Info) Description 11/08/2024 7:20 AM SOAKING PIT OPERATOR Hospital Encounter [facility] RAD ONC [address] [place] [phone] Social History Tobacco Use Types Packs/Day [...] or training? Not on file Preferred Language Syrian 09/27/2024 PHQ-2 Answer Date Recorded Patient Health [...] Author No Risk Indicated 12/20/2024 12:28 AM EDT Sage Martinez RN * [place] Suicide Severity Rating Scale (Screener/Recent Self-Report) Question Answer Date of Assessment Author 1. Wish to be (Past 1 Month) No 025 12:28 AM EDT Sage Martinez RN 2. Non-Specific Active Suici cyndie Thoughts (Past 1 Month) No 12/20/2024 12:28 AM EDT Derrek Martinez ph, RN 6. Suicidal Behavior (Lifetime) No 12:28 AM EDT Sage Martinez RN documented as of this encounter Plan of Treatment Upcoming Encounters Date Type Department Care Team (Late st Contact Info) Description 06/06/2025 10:30 AM EDT Office Visit [facility] [address] [place] [address] [address] [place] [phone] Juan Luis Garza MD [address] [facility] [address] [place] [address] documented as of this encounter Visit Diagnoses Not on filedocumented in this encounter Care Teams Dress Designer Relationship Specialty Start Date End Date Avila Puri DO [address] [address] [address] [place], [place] [phone] PCP - General Family Medicine 10/05/21 03/01/25 documented as of this encounter
--- OUTSIDE RECORDS SUMMARY | 2025-02-01 08:00 | XMS_ITS | Encounter Summary ---
Author [place] [address] Care Team Providers Care Engineering Specialist Technician Name Role Phone Rodriguez Lindo Primary Care Provider [phone]- [phone] Poli Felix RN Unavailable Unavailable Encounter Details Date Type Department Care Team (Latest Contact Info) Description 02/01/2025 8:00 AM EDT - 02/01/2025 8:25 AM EDT Hospital Encounter [place] [address] Malignant neoplasm of overlapping sites of left breast in female, estrogen receptor positive (HCC) (Primary Dx) Discharge Disposition: Home or Self Care Social History Tobacco Use Types Packs/Day Years Used Date Smoking Tobacco: Every Day Cigarettes 0.5 22.4 Started: 11/03/2002 Smokeless Tobacco: Never Alcohol Use Standard Drinks/Week Comments Not Currently 0 (1 standard drink = 0.6 oz pur e alcohol) PHQ-2 Answer Date Recorded PHQ-2 Total Score 0 02/01/2025 Sexually Active Control Partners Comments Yes Comments No Sex and Gender Information Value Date Recorded Sex Assigned at Not on file Legal Sex Female 1:34 AM EDT Gender Identity Not on file Sexual Orientation Not on file documented as of this encounter Functional Status * PHQ-2 Total Score Answer Date of Assessment Author 0 02/01/2025 8:00 AM EDT Laisha Cantu MA * PHQ-9 Total Score Answer Date of Assessment Author 0 02/01/2025 8:00 AM Laisha Bee MA * Question Answer Date of Assessment Author Little interest or pleasure in doing things 0 02/01/2025 8:00 AM Jane Bee MA Feeling down, depressed, or hopeless 0 02/01/2025 8:00 AM Jane Bee MA Trouble falling or staying a sleep, or sleeping too much 0 02/01/2025 8:00 AM Jane Bee MA Feeling tired or having sylwia le energy 0 02/01/2025 8:00 AM Jane Bee MA Poor appetite or overeating 0 02/01/2025 8: 00 AM Jane Bee MA Feeling bad about yourself - or that you are a failure or have let yourself or your family down 0 02/01/2025 8:00 AM Jane Bee MA Trouble concentrating on thi ngs, such as reading the newspaper or watching television 0 02/01/2025 8:00 AM Jane Bee MA Moving or speaking so slowly that other people could have noticed. Or the opposite - being so fidgety or restless that you have been moving around a lot more than usual 0 02/01/2025 8:00 AM Jane Bee MA Thoughts that you would be b ana off , or of hurting yourself in some way 0 02/01/2025 8:00 AM Jane Bee MA * Suicide Severity Rating Answer Date of Assessment Author No Risk 02/01/2025 8:00 AM Laisha Bee MA * [place] Suicide Severity Rating Scale (Q shift for moderate and high) Question Answer Date of Assessment Author 1. In the past month, have y ou wished you were or wished you could go to sleep and not wake up? 0 02/01/2025 8:00 AM Jane Cherry MA 2. In the past month, have y ou actually had any thoughts of killing yourself? (If no, skip to question 6) 0 02/01/2025 8:00 AM Jane Bee MA 6. Have you ever done anythi ng, started to do anything, or prepared to do anything to end your life? 0 02/01/2025 8:00 AM EDT Alex pierre, DAYANNA Lara documented as of this encounter Medications at Time of Discharge albuterol (PROVENTIL HFA;VENTOLIN HFA) 90 mcg/actuation Inhl HFA Aerosol Inhaler Inhale 2 Puffs into the lungs every 6 hours as needed. 09/10/2021 buPROPion (WELLBUTRIN SR) 150 mg Oral tablet sustained-release 12 hrIndications:Mal ignant neoplasm of overlapping sites of left breast in female, estrogen receptor positive (HCC),Low back pain, unspecified back pain laterality, unspecified chronicity, unspecified whether sciatica present Take 1 Tablet by mouth 2 times daily. 60 Tablet 4 01/14/2025 dexAMETHasone (DECADRON) 4 mg Oral TabletIndications :Malignant neoplasm of overlapping sites of left breast in female, estrogen receptor positive (HCC) Take 2 tablets in the am and 2 in the pm with food on the day before each treatment, take 2 table in the pm on the day of treatment and 2 tablets in the am on the 2 days follow each treatment. 30 Tablet 01/26/2025 loperamide (IMODIUM A-D) 2 mg Oral TabletIndications :Malignant neoplasm of overlapping sites of left breast in female, estrogen receptor positive (HCC),Diarrhea, unspecified type Take 2 tablets immediately, the 1 after each diarrhea stool. OK to take up to 8 tablets daily. 30 Tablet 2 02/03/2025 ondansetron (ZOFRAN) 4 mg Oral TabletIndications :Malignant neoplasm of overlapping sites of left breast in female, estrogen receptor positive (HCC),Low back pain, unspecified back pain laterality, unspecified chronicity, unspecified whether sciatica present Take 1 Tablet by mouth every 8 hours as needed for Nausea. 45 Tablet 2 01/14/2025 oxybutynin (DITROPAN-XL) 5 mg Oral Tablet Extended Rel 24 hrIndications:Mal ignant neoplasm of overlapping sites of left breast in female, estrogen receptor positive (HCC),Low back pain, unspecified back pain laterality, unspecified chronicity, unspecified whether sciatica present Take 1 Tablet by mouth daily. 30 Tablet 2 01/14/2025 promethazine (PHENERGAN) 12.5 mg Oral TabletIndications :Malignant neoplasm of overlapping sites of left breast [...] Care Team (Late st Contact Info) Description 04/15/2025 8:45 AM EDT Appointment [facility] [place], [place] [phone] 04/15/2025 9:15 AM EDT [facility]ment [facility] [place], [place] [phone] Vane Hollingsworth MD [address] [place] [address] [phone] documented as of this encounter Procedures Procedure Name Priority Date/Time Associated Diagnosis Comments CBC WITH DIFF STAT 02/01/2025 8:24 AM EDT Malignant neoplasm of overlapping sites of left breast in female, estrogen receptor positive (HCC) COMPREHENSIVE METABOLIC PANEL STAT 02/01/2025 8:24 AM EDT Malignant neoplasm of overlapping sites of left breast in female, estrogen receptor positive (HCC) documented in this encounter Results * (ABNORMAL) COMPREHENSIVE METABOLIC PANEL (02/01/2025 8:24 AM EDT) Sodium 140 136 - 145 mmol/L 02/01/2025 8:42 AM EDT [facility] Potassium 4.3 3.5 - 5.0 mmol/L 02/01/2025 8:42 AM EDT [facility] Chloride 105 98 - 107 mmol/L 02/01/2025 8:42 AM EDT [facility] Total CO2 21(L) 22 - 29 mmol/L 02/01/2025 8:42 AM EDT [facility] Anion Gap 14 7 - 16 mmol/L 02/01/2025 8:42 AM EDT [facility] Calcium 10.0 8.6 - 10.4 mg/dL 02/01/2025 8:42 AM EDT [facility] Glucose Lvl 128(H) 70 - 99 mg/dL 02/01/2025 8:42 AM EDT [facility] BUN 15 6 - 20 mg/dL 02/01/2025 8:42 AM EDT [facility] Creatinine 0.71 0.51 - 1.30 mg/dL 02/01/2025 8:42 AM EDT [facility] Albumin 4.3 3.5 - 5.2 gm/dL 02/01/2025 8:42 AM EDT [facility] Total Protein 7.2 6.4 - 8.3 gm/dL 02/01/2025 8:42 AM EDT [facility] Bili Total <0.2(L) 0.2 - 1.3 mg/dL 02/01/2025 8:42 AM EDT [facility] ALT 9 <=41 U/L 02/01/2025 8:42 AM EDT [facility] AST 16 <=40 U/L 02/01/2025 8:42 AM EDT [facility] Alk Phos 85 36 - 123 U/L 02/01/2025 8:42 AM EDT [facility] eGFR (CKD-EPIcr 2020) 109 >=60 mL/min/1.7 3 m2 02/01/2025 8:42 AM EDT [facility] Comment:Estimated GFR was ca lculated using the CKD-EPIcr (2020) equation refit without race. The equation is recommended by the National Kidney Foundation - [place] [employer] Neph[employer] Task Force. Blood VENOUS STRUCTURE / Unknown Port / Unknown 02/01/2025 8:24 AM EDT 02/01/2025 8:25 AM EDT us Vane Hollingsworth MD CHEMISTRY ORDERABLES Final Result [facility] [address] [id number] * (ABNORMAL) CBC WITH DIFF (02/01/2025 8:24 AM EDT) WBC 9.0 3.7 - 10.3 x10(3)/mc L 02/01/2025 8:30 AM EDT [facility] RBC 3.82(L) 3.90 - 5.20 x10(6)/mc L 02/01/2025 8:30 AM EDT [facility] Hgb 11.8 11.2 - 15.7 g/dL 02/01/2025 8:30 AM EDT [facility] Hct 36.6 34.0 - 45.0 % 02/01/2025 8:30 AM EDT [facility] MCV 95.8 80.0 - 100.0 fL 02/01/2025 8:30 AM EDT [facility] MCH 30.9 26.0 - 34.0 pg 02/01/2025 8:30 AM EDT [facility] MCHC 32.2 30.7 - 35.5 g/dL 02/01/2025 8:30 AM EDT [facility] RDW 14.2 <=14.9 % 02/01/2025 8:30 AM EDT [facility] Platelet 409(H) 155 - 369 x10(3)/mc L 02/01/2025 8:30 AM T [facility] MPV 9.3 8.8 - 12.5 fL 02/01/2025 8:30 AM EDT [facility] Neut # Prelim 8.0(H) 1.6 - 6.1 x10(3)/mc L 02/01/2025 8:30 AM T [facility] Comment:Preliminary automate d absolute neutrophil count. Value may change if manual differential is indicated. Neut Percent 89.4 % 02/01/2025 8:30 AM T [facility] Comment:Neutrophils equals s egs plus bands Imm Gran% 0.1 % 02/01/2025 8:30 AM [facility] Comment:Automated count of m etamyelocytes, myelocytes and promyelocytes. Lymph Percent 6.7 % 02/01/2025 8:30 AM EDT [facility] Menard Percent 3.7 % 02/01/2025 8:30 AM EDT [facility] Eos Percent 0.0 % 02/01/2025 8:30 AM EDT [facility] Baso Percent 0.1 % 02/01/2025 8:30 AM EDT [facility] Neut # 8.0(H) 1.6 - 6.1 x10(3)/mc L 02/01/2025 8:30 AM EDT [facility] Comment:Neutrophils equals s egs plus bands IMMGRAN# 0.0 0.0 - 0.1 x10(3)/mc L 02/01/2025 8:30 AM EDT [facility] Comment:Automated count of m etamyelocytes, myelocytes and promyelocytes. An absolute IG <0.1 is reported as 0.0. Lymph # 0.6(L) 1.2 - 3.9 x10(3)/ L 02/01/2025 8:30 AM EDT [facility] Menard # 0.3 0.3 - 0.9 x10(3)/mc L 02/01/2025 8:30 AM EDT [facility] Eos# 0.0 0.0 - 0.5 x10(3)/ L 02/01/2025 8:30 AM EDT [facility] Baso # 0.0 0.0 - 0.1 x10(3)/ L 02/01/2025 8:30 AM EDT [facility] Blood VENOUS STRUCTURE / Unknown Port / Unknown 02/01/2025 8:24 AM EDT 02/01/2025 8:25 AM EDT us Vane Hollingsworth MD HEMATOLOGY ORDERABLE S Final Result [facility] [address] [phone] documented in this encounter Visit Diagnoses Diagnosis Malignant neoplasm of overlapping sites of left breast in female, estrogen receptor positive (HCC)- Primary documented in this encounter Administered Medications Inactive Administered Medications - up to 1 most recent administrations Medication Order MAR Action Action Date Dose Rate Site sodium chloride 0.9 % sterile syringe 10 mL 10 mL, Intravenous, ONCE, 1 dose, On Fri02/01/25 at 0830, For initial access of Venous Access Device., Dx: 1. Malignant neoplasm of overlapping sites of left breast in female, estrogen receptor positive (HCC)Indications:Malignant neoplasm of overlapping sites of left breast in female, estrogen receptor positive (HCC) Given 02/01/2025 8:25 AM EDT 10 mL documented in this encounter Orders Medications Ordered That Jose Angel ht Not Have Been Administered Count Last Ordered Date First Ordered Date sodium chloride 0.9 % steril e syringe 10 mL 1 02/01/2025 documented in this encounter Care Teams Engineering Specialist Technician Relationship Specialty Start Date End Date [facility] [address] [place] [id number] PCP - General Clinic/Center - [facility] ([facility]) 12/03/16 Poli Felix, PAMELA Registered Nurse Infusion Therapy 02/01/25 02/08/25 documented as of this encounter
--- OUTSIDE RECORDS SUMMARY | 2025-02-01 08:26 | XMS_ITS | Encounter Summary ---
Author Organization [place] [address] Care Team Providers Care Senior Web Services Developer Name Role Phone Rodriguez Lindo Primary Care Provider [phone]- [phone] Poli Felix RN Unavailable Unavailable Reason for Visit * Reason Comments Follow-up Breast Cancer Malignant neoplasm o f overlapping sites of left breast in female, estrogen receptor positive Chemotherapy Encounter Details Date Type Department Care Team (Latest Contact Info) Description 02/01/2025 8:26 AM EDT - 02/01/2025 9:07 AM EDT Hospital Encounter [facility] [place] [address] Ana Rosa Del Angel, [address] [place] [address] Malignant neoplasm of overlapping sites of left breast in female, estrogen receptor positive (HCC) (Primary Dx); Encounter for antineoplastic chemotherapy; Other insomnia Discharge Disposition: Home or Self Care Social History Tobacco Use Types Packs/Day Years Used Date Smoking Tobacco: Every Day Cigarettes 0.5 22.4 Started: 11/03/2002 Smokeless Tobacco: Never Tobacco Cessation:Ready to Q uit: No; Counseling Given: Yes Alcohol Use Standard Drinks/Week Comments Not Currently [...] on file documented as of this encounter Last Filed Vital Signs Vital Sign Reading Time Taken Comments Blood Pressure 107/63 02/01/2025 8:32 AM EDT Pulse 73 02/01/2025 8:32 AM EDT Temperature 36.6 C (97.8 F) 02/01/2025 8:32 AM EDT Respiratory Rate - - Oxygen Saturation 100% 02/01/2025 8:32 AM EDT Inhaled Oxygen Concentration - - Weight 81.3 kg (179 lb 3.2 oz) 02/01/2025 8:32 A M EDT Height 167.6 cm (5' 6 ) 02/01/2025 8:32 AM EDT Body Mass Index 28.92 02/01/2025 8:32 AM EDT documented in this encounter Functional Status * PHQ-2 Total Score Answer Date of Assessment Author 0 02/01/2025 8:00 AM EDT Laisha Cantu MA * PHQ-9 Total Score Answer Date of Assessment Author 0 02/01/2025 8:00 AM EDT Laisha Cantu MA * Question Answer Date of Assessment Author Little interest or pleasure in doing things 0 02/01/2025 8:00 AM DINORAHT Jane Cantu MA Feeling down, depressed, or hopeless 0 02/01/2025 8:00 AM DINORAHT Jane Cantu MA Trouble falling or staying a sleep, or sleeping too much 0 02/01/2025 8:00 AM DINORAHT Jane Cantu MA Feeling tired or having sylwia le energy 0 02/01/2025 8:00 AM EDT Jane Cantu MA Poor appetite or overeating 0 02/01/2025 8: 00 AM DINORAHT Jane Cantu MA Feeling bad about yourself - or that you are a failure or have let yourself or your family down 0 02/01/2025 8:00 AM DINORAHT Jane Cantu MA Trouble concentrating on thi ngs, such as reading the newspaper or watching television 0 02/01/2025 8:00 AM DINORAHT Jane Cantu MA Moving or speaking so slowly that [...] 02/01/2025 8:00 AM Laisha Bee MA * [place] Suicide Severity Rating Scale (Q shift for [...] end your life? 0 02/01/2025 8:00 AM Jane Bar MA documented as of this encounter Medications at Time of Discharge albuterol (PROVENTIL HFA;VENTOLIN HFA) 90 mcg/actuation Inhl HFA Aerosol Inhaler Inhale 2 Puffs into the lungs every 6 hours as needed. 09/10/2021 buPROPion (WELLBUTRIN SR) 150 mg Oral tablet sustained-release 12 hrIndications:Malign ant neoplasm of overlapping sites of left breast in female, estrogen receptor positive (HCC),Low back pain, unspecified back pain laterality, unspecified chronicity, unspecified whether sciatica present Take 1 Tablet by mouth 2 times daily. 60 Tablet 4 01/14/2025 dexAMETHasone (DECADRON) 4 mg Oral TabletIndications:Amber lignant neoplasm of overlapping sites of left breast in female, estrogen receptor positive (HCC) Take 2 tablets in the am and 2 in the pm with food on the day before each treatment, take 2 table in the pm on the day of treatment and 2 tablets in the am on the 2 days follow each treatment. 30 Tablet 01/26/2025 ibuprofen (ADVIL;MOTRIN) 800 mg Oral TabletIndications:En counter for antineoplastic chemotherapy Take 1 Tablet by mouth every 8 hours as needed for Pain. 30 Tablet 1 02/01/2025 loperamide (IMODIUM A-D) 2 mg Oral TabletIndications:Ma lignant neoplasm of overlapping sites of left breast in female, estrogen receptor positive (HCC),Diarrhea, unspecified type Take 2 tablets immediately, the 1 after each diarrhea stool. OK to take up to 8 tablets daily. 30 Tablet 2 02/03/2025 loratadine (CLARITIN) 10 mg Oral TabletIndications:En counter for antineoplastic chemotherapy Take 1 Tablet by mouth daily. 30 Tablet 11 02/01/2025 ondansetron (ZOFRAN) 4 mg Oral TabletIndications:Ma lignant neoplasm of overlapping sites of left breast in female, estrogen receptor positive (HCC),Low back pain, unspecified back pain laterality, unspecified chronicity, unspecified whether sciatica present Take 1 Tablet by mouth every 8 hours as needed for Nausea. 45 Tablet 2 01/14/2025 oxybutynin (DITROPAN-XL) 5 mg Oral Tablet Extended Rel 24 hrIndications:Malign ant neoplasm of overlapping sites of left breast in female, estrogen receptor positive (HCC),Low back pain, unspecified back pain laterality, unspecified chronicity, unspecified whether sciatica present Take 1 Tablet by mouth daily. 30 Tablet 2 01/14/2025 promethazine (PHENERGAN) 12.5 mg Oral TabletIndications:Ma lignant neoplasm of overlapping sites of left breast in female, estrogen receptor positive (HCC),Low back pain, unspecified back pain laterality, unspecified chronicity, unspecified whether sciatica present Take 1 Tablet by mouth every 6 hours as needed for Nausea. 30 Tablet 2 01/14/2025 documented as of this encounter Ordered Prescriptions Prescription Sig Dispense Quantity Refills Last Filled Start Date End Date traZODone (DESYREL) 100 mg Oral TabletIndications:Ot her insomnia Take 1 Tablet by mouth nightly as needed for Sleep. at bedtime 30 Tablet 2 02/01/2025 ibuprofen (ADVIL;MOTRIN) 800 mg Oral TabletIndications:En counter for antineoplastic chemotherapy Take 1 Tablet by mouth every 8 hours as needed for Pain. 30 Tablet 1 02/01/2025 loratadine (CLARITIN) 10 mg Oral TabletIndications:En counter for antineoplastic chemotherapy Take 1 Tablet by mouth daily. 30 Tablet 11 02/01/2025 documented in this encounter Discharge Disposition Disposition Code Departure Means Destination Home or Self Care documented in this encounter Progress Notes * Ana Rosa Del Angel APRN - 02/01/2025 8:30 AM EDT Images from the original note were not included. Patient: Anne Kearney CSN: [id number] Date of : 1985 Age: 40 y.o. Date of Service: 02/01/2025 HEMATOLOGY/ONCOLOGY NEW PATIENT OFFICE NOTE Primary Care Physician: Rodriguez Lindo Referring Physician: Ana Rosa Del Angel APRN Reason for Referral: Breast Cancer CURRENT TREATMENT: 12/15/2024 - TC X 4 (first cycle given in [place]) Outside oncology history: Diagnosis Invasive lobular carcinoma, 2 o'clock left breast, Jul 2024 Grade 2 ER 76%, OH 24%, HER-2 0/negative, Ki67 13% Stage IIB; pT2, pN1a Oncotype DX recurrence score: 17 [facility] BRCA 1/2 CancerNext genetic test: Positive pathogenic mutation detected: BRCA2 History Hepatitis C-treated Treatment Summary 07/29/24 Bilateral mastectomies with positive (09/13) left axillary SLNB by Dr Giovanna Tolentino/[facility] General Surgery 08/16/24 Initiated endocrine hormone therapy with Tamoxifen 20mg daily by Dr Oliverio Prescott/[facility] Medical Oncology 10/01/24 Prophylactic total hysterectomy with bilateral salpino-oophorectomy by Dr Ministerio Gamino/[facility] 10/11/24 - 12/01/24 Completed adjuvant radiation therapy with 5040cGy over 28 fractions [address] left [address] Dr Angelito Pierson/[facility] Radiation Oncology 10/18/24 Discontinue Tamoxifen. Initiate Letrozole 2.5mg daily by Dr Oliverio Prescott/[facility] Medical Oncology. 12/15/24 Taxotere, Cyclophosphamide + GCSF every for 3 weeks x4 cycles Cancer History 06/14/24 Bilateral screening mammogram (P): No suspicious mammographic findings in the RIGHT breast. LEFT breast 4 mm focal asymmetry in the middle to posterior third, outer central breast, 3 o'clock position, 5 cm from the nipple on cc view. 06/14/24 Transvaginal US (P): Physiologic appearance of the uterus and RIGHT ovary. LEFT 2.5 cm small ovarian cyst or dominant follicle, similar compared to 2024. Peripheral ovarian tissue not well demonstrated on this exam. Small free fluid in the pelvis. 06/18/24 Left diagnostic mammogram ([facility]): LEFT breast 4 mm oval, equal density mass with partially circumscribed, partially obscured margins in the middle to posterior third, outer central breast 3 o'clock position, 5 cm from the nipple. LEFT breast distortion in the posterior third, outer central breast, 2-3 o'clock position, 7 cm from the nipple on cc view 06/18/24 US left breast/axilla (P): Targeted LEFT breast ultrasound 3:00 position, 5 centimeters from the nipple demonstrates 4 mm focally dilated duct or small cyst with thin internal septation. This correlates in size, position and character with the small LEFT breast mass described above. Targeted LEFT breast ultrasound 2-3:00 position, 7 centimeters from the nipple demonstrates 1.1 x 1.1 x 0.7 cm irregular, taller than wide, hypoechoic mass with echogenic halo and posterior shadowing. No internal vascularity. This correlates in size, position and character with the LEFT breast distortion described on mammogram. Targeted LEFT axillary ultrasound performed demonstrating normal-appearinglymph nodes. 06/21/24 Mass, left breast at 2:00, 7 cm from nipple, core needle biopsies: Invasive lobular carcinoma. Lizbet histologic score Glandular differentiation: Score 3. Nuclear pleomorphism: Score 2. Mitotic rate: Score 1. Overall grade: Grade 2. Maximum tumor diameter is at least 1.4 cm. ER 76%, OH 24%, HER-2 0/negative, Ki67 13% 06/29/24 MRI bilateral breast (P): The breast tissue is heterogeneously dense with mild background enhancement. Biopsy-proven lobular carcinoma identified within the posterior depth of the upper outer left breast at 2:00. Along the lateral aspect of the HydroMARK biopsy clip, there is a 1.6 x 1.5x 1.6 cm irregular homogeneously enhancing mass representing residual regional malignancy. No evidence of multicentric left breast malignancy. An enhancing intramammary lymph node appearing hyperintense on T2 is seen within the upper outer quadrant right breast at the 1 o'clock position in the anterior to mid depth. No evidence of contralateral right breast malignancy. There are few scattered nonenhancing bilateral breast cysts measuring 10 mm or less. No pathologically enlarged axillary or internal mammary lymphadenopathy identified. 06/29/24 Ambry BRACA 1/2 CancerNext genetic test: Positive pathogenic mutation detected: BRCA2 Bilateral mastectomies with positive (1/6) left axillary SLNB by Dr Giovanna Tolentino/[facility] General Surgery 07/29/24 Left breast, total mastectomy: Invasive lobular carcinoma, grade 2. Lymph node, left axilla, sentinel, dissection: Two lymph nodes with no evidence of carcinoma (0/2). Confirmatory AE1/AE3 immunostain negative, control adequate. Lymph node, left axilla, additional palpable, dissection: Oneof four lymph nodes with metastatic lobular carcinoma (1/4). Largest metastatic focus = 4.0 mm. Ext ranodal extension not identified. Confirmatory AE1/AE3 immunostain positive. Right breast, total mastectomy: Benign breast parenchyma with fibrocystic changes. AJCC pathology classification: pT2, pN1a. 08/16/24 Initiated endocrine hormone therapy with Tamoxifen 20mg daily by Dr Oliverio Prescott/[facility] Medical Oncology 08/16/24 [facility] labs: CEA 3.75, CA 27-29 14; CBC-WBC 14.6; ANC 8.7; ALC 4.2; Hgb 12.1; MCV 88.9; platelets 361,000; CMP WNL; ferritin 19, iron 34, fe sat 7% 08/18/24 CT chest ([facility]): No evidence of metastatic disease in the chest. Postoperative change of bilateral mastectomy. 08/18/24 CT abd/pelvis ([facility]): No evidence of metastatic disease in the abdomen or pelvis. 08/18/24 Bone scan ([facility]): No evidence of osteoblastic metastatic disease by bone scan. 08/30/24 Oncotype DX recurrence score: 17 09/16/[address] Angelito Pierson/[facility] Radiation Oncology who recommended adjuvant radiation therapy with 5040 cGy over 28 fractions to left breast/left chest wall [facility] recommendationsby [facility] regarding adjuvant chemotherapy. 09/20/[address] Oliverio Prescott/[facility] Medical Oncology who recommended referral to [facility] for prophylactic hysterectomy due to positive BRCA2 gene, to proceed with [facility] consult, to proceed with radiation therapy after [facility] consult and adjuvant Taxotere 75mg/m2, Cyclophosphamide 600mg/m2 every 3 weeks x4 cycles, but to hold until [facility] consult completed. 09/23/[address] Lit Sheets/[facility] Breast Medical Oncology who recommended adjuvantTaxotere Cyclophosphamide x4 cycles followed by adjuvant Aromatase inhibitor + Ribociclib + Zometa. 09/27/24 Bone density ([facility]): Normal 10/01/24 Prophylactic total hysterectomy with bilateral salpino-oophorectomy by Dr Ministerio Gamino[facility] 10/01/24 Uterus, cervix, bilateral tubes and ovaries, hysterectomy and bilateral salpingo-oophorectomy: Chronic cervicitis. Proliferative endometrium. Endometrial polyp. Adenomyosis. Completely transected right and left fallopian tubes and unremarkable fimbrial epithelial surface. Mesonephric cyst associated both left and right fallopian tubes. Corpora albicantia of right ovary.Corpora albicantia and 1 corpus hemorrhagicum of left ovary. Uterine weight of 141.7 g. 10/03/24 CT abd/pelvis ([facility]): Moderate pneumoperitoneum with scattered extraperitoneal air likely representing sequelae from the laparoscopic hysterectomy and bilateral salpingo-oophorectomy performedon 10/01/2024. Only trace free fluid of the lower pelvis with no loculated abscess or hematoma identified. Bladder appears intact. No hydronephrosis. Moderate stool of the right colon. No evidence forbowel obstruction. Mild right basilar atelectasis. 10/11/24 Initiated adjuvant radiation therapy with 5040cGy over 28 fractions to left breast by Dr Angelito Pierson/[facility] Radiation Oncology 10/18/24 Follow-up evaluation with Dr Oliverio Prescott/[facility] Medical Oncology who recommended to discontinue Tamoxifen, initiate Letrozole 2.5mg daily and to anticipate adjuvant Taxotere 75mg/m2, Cyclophosphamide 600mg/m2 every 3 weeks x4 cycles 10/18/24 Discontinue Tamoxifen. Initiate Letrozole 2.5mg daily by Dr Oliverio Prescott/[facility] Medical Oncology 11/03/24 CT chest ([facility]): No acute abnormality in the chest. 11/03/24 US venous doppler upper right extremity (P): There is no evidence of deep venous thrombosis of the right upper extremity. There is partial nonocclusive superficial thrombus in the cephalic vein. 12/01/24 Completed adjuvant radiation therapy with 5040cGy over 28 fractions to left breast by Dr Angelito Pierson/[facility] Radiation Oncology 12/15/24 First dose of TC HISTORY OF PRESENT ILLNESS: CC: Chief Complaint Patient presents with Follow-up Breast Cancer Malignant neoplasm of overlapping sites of left breast in female, estrogen receptor positive Chemotherapy Patient is a 40 y.o. female who presents for breast cancer follow up and treatment. First dose of TC in [place] and moved locally and here to continue her treatment Due for C2 TC today - delayed per insurance reasons per her report Got refill on chronic pain medication at visit last visit 01/14 x 30 days Still needs to get established with a pain clinic locally - plans to continue seeing pain management in [place] for now as she does not want to do all the baseline testing to established with new provider Feeling ok today No new concerns Wants to see SW today HISTORY: Medical, Surgical, Social, Family histories were reviewed MEDICATIONS & ALLERGIES Medications and Allergies reviewed PHYSICAL EXAM: Vitals: 02/01/25 0832 BP: 107/63 Pulse: 73 Temp: 97.8 ??F (36.6 ??C) SpO2: 100% Wt Readings from Last 2 Encounters: 02/01/25 179 lb 3.2 oz (81.3 kg) 01/14/25 183 lb 14.4 oz (83.4 kg) ECO Pertinent information: Physical Exam Constitutional: Appearance: Normal appearance. Cardiovascular: Rate and Rhythm: Normal rate. Chest: Abdominal: General: Abdomen is flat. Palpations: Abdomen is soft. Musculoskeletal: Cervical back: Normal range of motion and neck supple. Skin: Comments: RCWP clean/intact Neurological: Mental Status: She is alert. Psychiatric: Mood and Affect: Mood normal. Behavior: Behavior normal. MEDICAL DATA REVIEW: Pertinent laboratories, images, pathology results reviewed. ASSESSMENT & PLAN Anne was seen today for follow-up, breast cancer and chemotherapy. Diagnoses and all orders for this visit: Malignant neoplasm of overlapping sites of left breast in female, estrogen receptor positive (HCC) Encounter for antineoplastic chemotherapy - loratadine (CLARITIN) 10 mg Oral Tablet; Take 1 Tablet by mouth daily. - ibuprofen (ADVIL;MOTRIN) 800 mg Oral Tablet; Take 1 Tablet by mouth every 8 hours as needed for Pain. Other insomnia - traZODone (DESYREL) 100 mg Oral Tablet; Take 1 Tablet by mouth nightly as needed for Sleep. at bedtime Stage IIB-Invasive lobular carcinoma, 2 o'clock left breast, Grade 2, ER 76%, OH 24%, HER-2 0/negative, Ki67 13%, pT2, pN1a (sn), Oncotype DX recurrence score: , Jul 2024 BRCA 2 -she has undergone bilateral mastectomy, adjuvant radiation, and is in the midst of adjuvant chemotherapy -we typically give chemotherapy before radiation. Also for pt with intermediate score and premenopausal with N1a disease, you can offer adjuvant chemo vs ovarian suppression/AI (there is question whether the benefit of chemotherapy is from ovarian suppression). -she has already started chemotherapy so will complete -will start TC with growth factor cycle 2 next week -will then plan for adjuvant -anastrozole plus CDK 4/6 inhibitor Ribociclib 400 mg p.o. daily days 1-21 q. 28 days x 3 years Plan: Proceed 3 more cycles of adjuvant TC with G-CSF support Anticipated aromatase inhibitor/CDK 4 inhibitor adjuvantly after completion chemotherapy Does not qualify for PARP on her stage Cycle #2 TC today FU 1 week for med check visit Genetic assessment 06/29/24 Anni LEONARDO 1/2 CancerNext genetic test: Positive pathogenic mutation detected: BRCA2 (I need to see this report) Bone health 09/27/24 Bone density ([facility]): Normal Hot flashes Oxybutynin 5 mg p.o. twice daily - change to XL Had more HFs so went back to her other 5mg twice daily dosing When she runs out of this, recommend taking 10mg XL to see if this helps Smoking cessation -still working on quiting. Chronic pain -was on Percocet prior to cancer diagnosis for chronic pain -Dr. 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 Also mentions that prior pain specialist did not want to go up on her dosing 10mg/325mg 4 x/d (was on a lower dose before cancer dx ?) and her oncologist was giving her a higher dose during chemo only. Discussed Dr. Hollingsworth only gave her a 1 month supply and she needs to determine how she would like to move forward with refills. Sheis asking to go up to 5 tablets for the few days after chemo as day 2-4 are her worst days. I told her not to go up on dosing but to weave in ibuprofen 800mg every 8h + daily claritin during this time. She is worried about pain medication refill in two weeks. I told her I would have our team call her before the end of the week and see how she is doing. Dispo: Return for see below. Need neulasta appt tomorrow FU 1 week with labs, visit, tx (possible fluids) FU 3 weeks on a Friday labsMD visit, tx Thank you for the opportunity to assist in the care of this patient, please feel free to contact meif I can be of any assistance. Ana Rosa Del Angel APRN Hematology and Medical Oncology [facility] documented in this encounter Plan of Treatment Upcoming Encounters Date Type Department Care Team (Late st Contact Info) Description 04/15/2025 8:45 AM EDT Appointment [facility] [place] [address] 04/15/2025 9:15 AM EDT Appointment [facility] [place] [address] Vane Hollingsworth MD [address] [place] [id number] documented as of this encounter Visit Diagnoses Diagnosis Malignant neoplasm of overlapping sites of left breast in female, estrogen receptor positive (HCC)- Primary Encounter for antineoplastic chemotherapy Other insomnia documented in this encounter Discontinued Medications Medication Sig Discontinue Reason Start Date End Da te traZODone (DESYREL) 100 mg Oral Tablet Take 100 mg by mouth nightly. at bedtime Reorder 08/30/2024 02/01/2025 documented as of this encounter Care Teams Senior Web Services Developer Relationship Specialty Start Date End Date Rodriguez Lindo [address] [place] [address] PCP - General Clinic/Center - [facility] ([facility]) 12/03/16 Poli Felix, PAMELA Registered Nurse Infusion Therapy 02/01/25 02/08/25 documented as of this encounter
--- OUTSIDE RECORDS SUMMARY | 2025-02-01 09:08 | XMS_ITS | Encounter Summary ---
Author Organization [place] [address] Care Team Providers Care Tape Cutter Name Role Phone Rodriguez Lindo Primary Care Provider +1- [phone] Poli Felix RN Unavailable Unavailable Reason for Visit * Oncology Medication Prior Authorization (Routine) - Authorized Specialty Diagnoses / Procedures Referred By Contjo t Referred To Contact Diagnoses Malignant neoplasm of overlapping sites of left breast in female, estrogen receptor positive (HCC) Procedures ONCOLOGY MEDICATION AUTHORIZATION Vane Hollingsworth MD [address] [place] [address] Phone: tel: fax: Vane Hollingsworth MD [address] [place] [address] Phone: tel: fax: Referral ID Status Reason Start Date Expiration Date V isits Requested Visits Authorized [id number] Authorized 01/21/2025 01/21/2026 1 6 Encounter Details Date Type Department Care Team (Latest Contact Info) Description 02/01/2025 9:08 AM EDT - 02/01/2025 11:59 PM EDT Hospital Encounter [facility] [place] [address] Malignant neoplasm of overlapping sites [...] 02/01/2025 8:00 AM Laisha Bee MA * [place] Suicide Severity Rating Scale (Q shift for [...] this encounter Progress Notes * Chasity Garcia, [facility] - 02/01/2025 9:30 AM EDT Pharmacy Chemotherapy [...] chemo, [facility] Concurrent Radiation No, completed [...] SQ ordered. Received with first cycle at [facility] INTERACTIONS Potentially clinically important drug interactions based [...] Felix RN - 02/01/2025 9:30 AM EDT [facility] Discharge Instructions Thank you for [...] infection DON'T WAIT, PLEASE CALL US FIRST [phone]. [FOR URGENT ISSUES PLEASE DO NOT LEAVE A MESSAGE, FOLLOW PROMPTS TO THE DOCTOR MEDICAL LEGAL INVESTIGATOR] For Gynecology / Oncology call : [phone] Our hours of operation are Friday - Friday 8:00 AM - 4:30 PM. [facility] Scott Johnson [address] [address] [place] [address] [place] [address] Results for orders placed or performed [...] Gran% 0.1 % Lymph Percent 6.7 % [place] Percent 3.7 % Eos Percent 0.0 % Baso Percent 0.1 % Neut # 8.0 (H) 1.6 - 6.1 x10(3)/mcL IMMGRAN# 0.0 0.0 - 0.1 x10(3)/mcL Lymph # 0.6 (L) 1.2 - 3.9 x10(3)/mcL [place] # 0.3 0.3 - 0.9 x10(3)/mcL Eos# [...] AM EDT Appointment [place] [address] 04/15/2025 9:15 AM EDT [facility]ment [facility] [place] [address] Vane Hollingsworth MD [address] [place] [address] documented as of this encounter Visit Diagnoses [...] at 0930, Until Fri02/02/25 at 0405, For line camera operator during chemotherapy infusion., Dx: 1. Malignant neoplasm [...] mL documented in this encounter Care Teams Tape Cutter Relationship Specialty Start Date End Date [facility] [address] [phone] PCP - General Clinic/Center - [facility] 12/03/16 Poli Felix, PAMELA Registered Nurse Infusion Therapy 02/01/25 02/08/25 documented as of this encounter
--- OUTSIDE RECORDS SUMMARY | 2025-02-02 13:30 | XMS_ITS | Encounter Summary ---
Author Organization [place] [address] Care Team Providers Care Adoption Coordinator Name Role Phone Rodriguez Lindo Primary Care Provider +1- [phone] Poli Felix RN Unavailable Unavailable Aydee Westbrook RN Unavailable Unavailable Reason for Referral * Consultation (Routine) - Authorization Not Needed Specialty Diagnoses / Procedures Referred By Contac t Referred To Contact Oncology Diagnoses Malignant neoplasm of overlapping sites of left breast in female, estrogen receptor positive (HCC) Procedures CANCER CARE NUTRITION COMMUNICATION Vane Hollingsworth MD [address] [place] [address] Phone: tel: fax: [facility] [place] [address] Phone: tel: Referral ID Status Reason Start Date Expiration Date Visits Requested Visits Authorized [id number] Authorization Not Needed 02/02/2025 02/02/2026 1 1 Reason for Visit * Oncology Medication Prior Authorization (Routine) - Authorized Specialty Diagnoses / Procedures Referred By Contjo t Referred To Contact Diagnoses Malignant neoplasm of overlapping sites of left breast in female, estrogen receptor positive (HCC) Procedures ONCOLOGY MEDICATION AUTHORIZATION Vane Hollingsworth MD 1 [place] [address] Phone: tel: fax: Vane Hollingsworth MD [address] [place] [address] Phone: tel: fax: Referral ID Status Reason Start Date Expiration Date V isits Requested Visits Authorized [id number] Authorized 01/21/2025 01/21/2026 1 6 Encounter Details Date Type Department Care Team (Latest Contact Info) Description 02/02/2025 1:30 PM EDT - 02/02/2025 11:59 PM EDT Hospital Encounter [facility] [place] [address] Malignant neoplasm of overlapping sites of left [...] Sign Reading Time Taken Comments Blood Pressure 105/64 02/02/2025 1:55 PM EDT Pulse 73 02/02/2025 1:55 PM EDT Temperature 36.6 C (97.9 F) 02/02/2025 1:55 PM EDT Respiratory Rate 18 02/02/2025 1:55 PM EDT Oxygen Saturation 100% 02/02/2025 1:55 PM EDT Inhaled Oxygen Concentration - - Weight - - Height - - Body Mass Index - - documented in this encounter Medications at Time of Discharge [...] documented in this encounter Progress Notes * Aydee Westbrook RN - 02/02/2025 1:30 PM EDT Patient presented today for C2D2 Nyvepria injection. Patient reported generally not feeling well with some diarrhea. Reports eating, although food doesn't taste good. Reports drinking fluids and denies emesis. Offered to contact the clinic while patient was here regarding getting orders for IV fluids and supportive meds. Patient declined. Referral placed for Nutrition Services (Dietitian). Encouraged patient to call clinic if she feels she could benefit from IVF and supportive meds. Patient verbalized understanding. documented in this encounter Miscellaneous Notes * Patient Instructions - Aydee Westbrook RN - 02/02/2025 1:30 PM EDT [facility] Discharge Instructions Thank you for entrusting the [facility] with your care. We hope you are pleased with your outpatient care and services. Because we are most concerned with your health, we suggest you carefully read the following discharge instructions: Your Discharge Instructions: MEDICATION INSTRUCTIONS: Treatment received today: Orders Placed This Encounter Cancer Care Nutrition Referral pegfilgrastim-apgf (NYVEPRIA) injection 6 mg Reviewed medications administered today and possible side [...] infection DON'T WAIT, PLEASE CALL US FIRST [phone]. [FOR URGENT ISSUES PLEASE DO NOT LEAVE A MESSAGE, FOLLOW PROMPTS TO THE DOCTOR FLOWER CUTTER] For Gynecology / Oncology call : [phone] Our hours of operation are Friday - Friday 8:00 AM - 4:30 PM. [facility] [id number] [place], [place] [id number] [place] [address] [phone] [address] No results found for any visits on 02/02/25. documented in this encounter Plan of Treatment Upcoming Encounters Date Type Department Care Team (Late st Contact Info) Description 04/15/2025 8:45 AM EDT Appointment [facility] [place], [place] [id number] 04/15/2025 9:15 AM EDT [facility]ointment [facility] [place], [place] [id number] Vane Hollingsworth MD [address] [place] [address] documented as of this encounter Visit Diagnoses Diagnosis Malignant neoplasm of overlapping sites of left breast in female, estrogen receptor positive (HCC)- Primary documented in this encounter Administered Medications Inactive Administered Medications - up to 1 most recent administrations Medication Order MAR Action Action Date Dose Rate Site pegfilgrastim-apgf (NYVEPRIA) injection 6 mg 6 mg, Subcutaneous, ONCE, 1 dose, On Fri02/02/25 at 1400, Please Select Indication: Dose-Dense regimen, Dx: 1. Malignant neoplasm of overlapping sites of left breast in female, estrogen receptor positive (HCC)Indications:Malignant neoplasm of overlapping sites of left breast in female, estrogen receptor positive (HCC) Given 02/02/2025 2:11 PM EDT 6 mg Left Arm documented in this encounter Orders Medications Ordered That Jose Angel ht Not Have Been Administered Count Last Ordered Date First Ordered Date pegfilgrastim-apgf (NYVEPRIA ) injection 6 mg 1 02/02/2025 Nursing Count Last Ordered Date First Orde red Date CANCER CARE NUTRITION COMMUNICATION 1 02/02 documented in this encounter Care Teams Adoption Coordinator Relationship Specialty Start Date End Date [facility] [address] [place] [address] PCP - General Clinic/Center - [facility] ([facility]) 12/03/16 Poli Felix, PAMELA Registered Nurse Infusion Therapy 02/01/25 02/08/25 Aydee Westbrook RN Registered Nurse Infusion Therapy 02/02/25 02/02/25 documented as of this encounter
--- OUTSIDE RECORDS SUMMARY | 2025-02-07 16:00 | XMS_ITS | Encounter Summary ---
Demographics Address [address] [place] [phone] Mobile Phone Email Address Preferred Language en Marital Status Anabaptism Affiliation Unknown Race White Ethnic Group Not or Lati no Author Organization Healthcare Address [address] [place] [address] Care Team Providers Care Social Studies Department Chair Name Role Phone Pcp, No Primary Care Provider Unavailabl e Reason for Referral * Consultation (Routine) - Canceled Specialty Diagnoses / Procedures Referred By Contac t Referred To Contact Blood and Marrow Transplant Diagnoses Cancer associated pain Donnell Cisneros DO [address] [place] [address] Phone: tel: fax: [facility] Hematology/BMT and Cellular Therapy Program [address] [place] [address] [place] [address] Phone: tel: fax: Referral ID Status Reason Start Date Expiration Date V isits Requested Visits Authorized [id number] Canceled 02/07/2025 08/09/2026 1 1 Reason for Visit * Reason Comments Pain Management Encounter Details Date Type Department Care Team ([facility] Contact Info) Description 02/07/2025 4:00 PM EDT - 02/07/2025 6:31 PM EDT Emergency [facility] Emergency Department [address] [place] [address] Donnell Cisneros DO [address] [place] [address] Cancer associated pain (Primary Dx) [...] that she usually sees pain management in [facility] howeverher heme/Onc physician recently wrote her oxycodone 10s. States that her refill was due on 01/28/2025 however she was not able to pick it up and is not able to to get back to [facility] to her pain management clinic for assessment for refills. She does have an appointment scheduled for a new pain management clinic here in [place] on 03/03/2025. Denies any recent injuries, nausea [...] normal. No congestion or rhinorrhea. Mouth/Throat: Lips: [place]. Mouth: Mucous membranes are moist. Pharynx: Oropharynx [...] that she usually sees pain management in [facility] however her heme/Onc physician recently wrote her oxycodone 10s. States that her refill was due on 01/28/2025 however she was not able to pick it up and is not able to to get back to [facility] to her pain management clinic for assessment for refills. She does have an appointment scheduled for a new pain management clinic here in [place] on 03/03/2025. Denies any recent injuries, nausea [...] DONNELL CISNEROS Clinical Impressions as of 02/09/25 7946 Cancer associated pain Social Determinates of Health [...] further evaluation and management. Disposition Discharge AVS (Uruguayan Snapshot) - Printed 02/07/2025 Follow-Ups: Follow up with [facility] Hematology/BMT and Cellular Therapy Program (Blood and Marrow Transplant) Discharge Orders Discharge Ambulatory referral to Adult Palliative Care Authorized - [1] No past medical history on file. [2] No past surgical history on file. [3] No family history on file. [4] [5] Not on File Donnell Cisneros DO 02/09/25 6695 * ED Triage Notes - Raysa Rivero [...] - ED (02/07/2025 5:00 PM EDT) Pathologist [facility] Hepatitis C Virus (HCV) Quantitative Interpretation Not Detected Not Detected. 02/08/2025 2:54 PM EDT [facility] Blood Venous blood specimen / Unknown Venipuncture / Unknown 02/07/2025 5:00 PM EDT 02/07/2025 5:[address] [facility] - 02/08/2025 2:54 PM EDT [...] ORDERABLES Final Resul t Performing Organization Address City/[facility] Co de Phone Number [facility] [address] [place] [address] * ED HIV 1/2 Antibody/Antigen Screen w/Reflex to HIV 1/2 Differentiation (02/07/2025 5:00 PM EDT) [facility] HIV 1 & 2 Antibody/Antigen Screen Non Reactive Non Reactive 02/07/2025 7:11 PM EDT [facility] Comment:Screening for HIV 1 & 2 antibodies, and P24 antigen is NONREACTIVE. No confirmatory testing is required. Blood Venous blood specimen / Unknown Venipuncture / Unknown 02/07/2025 5:00 PM EDT 02/07/2025 5:10 PM EDT us Jose R Muniz MD LAB BLOOD ORDERABLES Final Resul t Performing Organization Address City/[facility]/ZIP Co de Phone Number [facility] [address] [place] [address] * (ABNORMAL) Hepatitis C Antibody - ED (02/07/2025 5:00 PM EDT) Pathologist [facility] Hepatitis C Antibody Positive(A ) Negative 02/07/2025 6:33 PM EDT [facility] Blood Venous blood specimen / Unknown Venipuncture / Unknown 02/07/2025 5:00 PM EDT 02/07/2025 5:10 PM EDT us Jose R Muniz MD LAB BLOOD ORDERABLES Final Resul t [facility] [address] [place] [address] * (ABNORMAL) CBC (02/07/2025 5:00 PM EDT) Pathologist [facility] WBC Count 3.22(L) 3.70 - 10.30 10*3/uL LAB HEMATOLOGY METHOD 02/07/2025 5:29 PM EDT [facility] RBC Count 3.44(L) 3.90 - 5.20 10*6/uL LAB HEMATOLOGY METHOD 02/07/2025 5:29 PM EDT [facility] HGB 10.4(L) 11.2 - 15.7 g/dL LAB HEMATOLOGY METHOD 02/07/2025 5:29 PM EDT [facility] HCT 31.8(L) 34.0 - 45.0 % LAB HEMATOLOGY METHOD 02/07/2025 5:29 PM EDT [facility] Platelet Count 212 155 - 369 10*3/uL LAB HEMATOLOGY METHOD 02/07/2025 5:29 PM EDT [facility] MCV 92 79 - 98 fL LAB HEMATOLOGY METHOD 02/07/2025 5:29 PM EDT [facility] MCH 30.2 26.0 - 32.0 pg LAB HEMATOLOGY METHOD 02/07/2025 5:29 PM EDT [facility] MCHC 32.7 30.7 - 35.5 g/dL LAB HEMATOLOGY METHOD 02/07/2025 5:29 PM EDT [facility] RDW 13.7 11.5 - 14.5 % LAB HEMATOLOGY METHOD 02/07/2025 5:29 PM EDT [facility] MPV 10.4 8.8 - 12.5 fL LAB HEMATOLOGY METHOD 02/07/2025 5:29 PM EDT [facility] nRBC 1.2(H) <=0.0 per 100 WBCs LAB HEMATOLOGY METHOD 02/07/2025 5:29 PM EDT [facility] Blood Venous blood specimen / Unknown Venipuncture / Unknown 02/07/2025 5:00 PM EDT 02/07/2025 5:09 PM EDT us Jose R Muniz MD LAB BLOOD ORDERABLES Final Resul t [facility] [address] [place] [address] * (ABNORMAL) CMP (02/07/2025 5:00 PM EDT) Glucose, Plasma 78 74 - 99 mg/dL 02/07/2025 5:32 PM EDT [facility] BUN, Plasma 8 7 - 21 mg/dL 02/07/2025 5:32 PM EDT [facility] Creatinine, Plasma 0.65 0.60 - 1.10 mg/dL 02/07/2025 5:32 PM EDT [facility] BUN/Creatinine Ratio 12 02/07/2025 5:32 PM EDT [facility] Sodium, Plasma 134(L) 136 - 145 mmol/L 02/07/2025 5:32 PM EDT [facility] Potassium, Plasma 4.0 3.6 - 4.9 mmol/L 02/07/2025 5:32 PM EDT [facility] Chloride, Plasma 102 97 - 107 mmol/L 02/07/2025 5:32 PM EDT [facility] CO2, Plasma 24 22 - 29 mmol/L 02/07/2025 5:32 PM EDT [facility] Anion Gap 8 6 - 16 mmol/L 02/07/2025 5:32 PM EDT [facility] Total Calcium, Plasma 9.1 8.9 - 10.2 mg/dL 02/07/2025 5:32 PM EDT [facility] Total Protein 6.5 6.3 - 7.9 g/dL 02/07/2025 5:32 PM EDT [facility] Albumin, Plasma 4.0 3.5 - 5.2 g/dL 02/07/2025 5:32 PM EDT [facility] AST, Plasma 20 10 - 35 U/L 02/07/2025 5:32 PM EDT [facility] ALT, Plasma 22 10 - 35 U/L 02/07/2025 5:32 PM EDT [facility] Alkaline Phosphatase, Plasma 98 35 - 104 U/L 02/07/2025 5:32 PM EDT [facility] Total Bilirubin, Plasma 0.3 0.2 - 1.1 mg/dL 02/07/2025 5:32 PM EDT [facility] eGFRcr 113.6 mL/min/1.7 3m*2 02/07/2025 5:32 PM EDT [facility] Comment:Reported eGFRcr in m L/min/1.73m2 is based the CKD-EPI 2020 equation that does not use a race coefficient. Blood Venous blood specimen / Unknown Venipuncture / Unknown 02/07/2025 5:00 PM EDT 02/07/2025 5:09 PM EDT us Jose R Muniz MD LAB BLOOD ORDERABLES Final Resul t [facility] [address] [place] [address] documented in this encounter Visit Diagnoses Diagnosis [...] RN) documented in this encounter Care Teams Social Studies Department Chair Relationship Specialty Start Date End Date Pcp, Mounika [address] [place] [address] PCP - General Family Medicine 02/07/25 documented as of this encounter
--- OUTSIDE RECORDS SUMMARY | 2025-02-09 08:15 | XMS_ITS | Encounter Summary ---
Author Organization [place] [address] Care Team Providers Care Credit Card Interviewer Name Role Phone Rodriguez Lindo Primary Care Provider +1- [phone] Eden Noble RN Unavailable Unavailable Encounter Details Date Type Department Care Team (Latest Contact Info) Description 02/09/2025 8:15 AM EDT - 02/09/2025 8:29 AM EDT Hospital Encounter [facility] [place] [id number] Malignant neoplasm of overlapping sites of left [...] on file documented as of this encounter Medications at [...] needed for Pain. 30 Tablet 1 02/01/2025 LICE TREATMENT 1 % Top Liquid APPLY TOPICALLY TO AREA FOR 1 DOSE 02/03/2025 loperamide (IMODIUM A-D) 2 mg Oral TabletIndications:Ma [...] Sleep. at bedtime 30 Tablet 2 02/01/2025 acetaminophen (TYLENOL) 500 mg Oral Tablet Take 1,000 mg by mouth every 6 hours as needed. 02/07/2025 documented as of this encounter Discharge Disposition Disposition Code Departure Means Destination Home or Self Care documented in this encounter Plan of Treatment Upcoming Encounters Date Type Department Care Team (Late st Contact Info) Description 04/15/2025 8:45 AM EDT Appointment [place] [address] 04/15/2025 9:15 AM EDT [facility] [place] [address] Vane Hollingsworth MD [address] [place] [phone] documented as of this encounter Procedures Procedure Name Priority Date/Time Associated Diagnosis Comments CBC WITH DIFF STAT 02/09/2025 8:45 AM EDT Malignant neoplasm of overlapping sites of left breast in female, estrogen receptor positive (HCC) MAGNESIUM LEVEL STAT 02/09/2025 8:45 AM EDT Malignant neoplasm of overlapping sites of left breast in female, estrogen receptor positive (HCC) COMPREHENSIVE METABOLIC PANEL STAT 02/09/2025 8:45 AM EDT Malignant neoplasm of overlapping sites of left breast in female, estrogen receptor positive (HCC) documented in this encounter Results * MAGNESIUM LEVEL (02/09/2025 8:45 AM EDT) Magnesium 2.1 1.6 - 2.4 mg/dL 02/09/2025 9:32 AM EDT [facility] Blood VENOUS STRUCTURE / Unknown Medicare Port / Unknown 02/09/2025 8:45 AM EDT 02/09/2025 8:46 AM EDT us Bay E Klever DESPATCHING AND RECEIVING CLERK CHEMISTRY ORDERABLES Ernestine l Result [facility] [address] [place] [address] * (ABNORMAL) COMPREHENSIVE METABOLIC PANEL (02/09/2025 8:45 AM EDT) Sodium 142 136 - 145 mmol/L 02/09/2025 9:32 AM EDT [facility] Potassium 3.4(L) 3.5 - 5.0 mmol/L 02/09/2025 9:32 AM EDT [facility] Chloride 107 98 - 107 mmol/L 02/09/2025 9:32 AM EDT [facility] Total CO2 23 22 - 29 mmol/L 02/09/2025 9:32 AM EDT [facility] Anion Gap 12 7 - 16 mmol/L 02/09/2025 9:32 AM EDT [facility] Calcium 9.3 8.6 - 10.4 mg/dL 02/09/2025 9:32 AM EDT [facility] Glucose Lvl 101(H) 70 - 99 mg/dL 02/09/2025 9:32 AM EDT [facility] BUN 10 6 - 20 mg/dL 02/09/2025 9:32 AM EDT [facility] Creatinine 0.77 0.51 - 1.30 mg/dL 02/09/2025 9:32 AM EDT [facility] Albumin 4.0 3.5 - 5.2 gm/dL 02/09/2025 9:32 AM EDT [facility] Total Protein 6.3(L) 6.4 - 8.3 gm/dL 02/09/2025 9:32 AM EDT [facility] Bili Total <0.2(L) 0.2 - 1.3 mg/dL 02/09/2025 9:32 AM EDT [facility] ALT 15 <=41 U/L 02/09/2025 9:32 AM EDT [facility] AST 23 <=40 U/L 02/09/2025 9:32 AM EDT [facility] Alk Phos 109 36 - 123 U/L 02/09/2025 9:32 AM EDT [facility] eGFR (CKD-EPIcr 2020) 99 >=60 mL/min/1.7 3 m2 02/09/2025 9:32 AM EDT [facility] Comment:Estimated GFR was ca lculated using the CKD-EPIcr (2020) equation refit without race. The equation is recommended by the National Kidney Foundation - [place] Society of Nephrology Task Force. Blood VENOUS STRUCTURE / Unknown Medicare Port / Unknown 02/09/2025 8:45 AM EDT 02/09/2025 8:46 AM EDT [facility] DESPATCHING AND RECEIVING CLERK CHEMISTRY ORDERABLES [place] [address] * (ABNORMAL) CBC WITH DIFF (02/09/2025 8:45 AM EDT) WBC 28.7(H) 3.7 - 10.3 x10(3)/mc L 02/09/2025 9:45 AM EDT [facility] [employer] [facility] Comment:This is an appended report. These results have been appended to a previously preliminary verified report. RBC 3.12(L) 3.90 - 5.20 x10(6)/mc L 02/09/2025 9:45 AM EDT [facility] Hgb 9.6(L) 11.2 - 15.7 g/dL 02/09/2025 9:45 AM EDT [facility] Hct 29.9(L) 34.0 - 45.0 % 02/09/2025 9:45 AM EDT [facility] MCV 95.8 80.0 - 100.0 fL 02/09/2025 9:45 AM EDT [facility] MCH 30.8 26.0 - 34.0 pg 02/09/2025 9:45 AM EDT [facility] MCHC 32.1 30.7 - 35.5 g/dL 02/09/2025 9:45 AM EDT [facility] RDW 13.9 <=14.9 % 02/09/2025 9:45 AM EDT [facility] Platelet 217 155 - 369 x10(3)/mc L 02/09/2025 9:45 AM EDT [facility] MPV 9.5 8.8 - 12.5 fL 02/09/2025 9:45 AM EDT [facility] NRBC Auto % 0.8(H) <=0.0 % 02/09/2025 9:45 AM EDT [facility] Comment:This is an appended report. These results have been appended to a previously preliminary verified report. NRBC# 0.2 x10(3)/mc L 02/09/2025 9:45 AM EDT [facility] Comment:This is an appended report. These results have been appended to a previously preliminary verified report. Segs 71 % 02/09/2025 9:45 AM EDT [facility] Lymphs 8 % 02/09/2025 9:45 AM EDT [facility] Monos 8 % 02/09/2025 9:45 AM EDT [facility] Eos 0 % 02/09/2025 9:45 AM EDT [facility] Baso 0 % 02/09/2025 9:45 AM EDT [facility] Metamyelocyte 5 % 02/09/2025 9:45 AM EDT [facility] Myelo 2 % 02/09/2025 9:45 AM EDT [facility] Promyelo % 6 % 02/09/2025 9:45 AM EDT [facility] Neut # 20.4(H) 1.6 - 6.1 x10(3)/mc L 02/09/2025 9:45 AM EDT [facility] Lymph # 2.3 1.2 - 3.9 x10(3)/mc L 02/09/2025 9:45 AM EDT [facility] [place] # 2.3(H) 0.3 - 0.9 x10(3)/mc L 02/09/2025 9:45 AM EDT [facility] Eos # Manual 0.0 0.0 - 0.5 x10(3)/mc L 02/09/2025 9:45 AM EDT [facility] Baso # Manual 0.0 0.0 - 0.1 x10(3)/mc L 02/09/2025 9:45 AM EDT [facility] Metamyelo # 1.4 x10(3)/mc L 02/09/2025 9:45 AM EDT [facility] Myelo # 0.6 x10(3)/mc L 02/09/2025 9:45 AM EDT [facility] Promyelo # 1.7 x10(3)/mc L 02/09/2025 9:45 AM EDT [facility] Hypochrom Slight 02/09/2025 9:45 AM EDT [facility] Blood VENOUS STRUCTURE / Unknown Medicare Port / Unknown 02/09/2025 8:45 AM EDT 02/09/2025 8:46 AM EDT Sosa E Klever DESPATCHING AND RECEIVING CLERK HEMATOLOGY [place] [address] [facility], [address], [place] [address] documented in this encounter Visit Diagnoses Diagnosis Malignant neoplasm of overlapping sites of left breast in female, estrogen receptor positive (HCC)- Primary documented in this encounter Administered Medications Inactive Administered Medications - up to 1 most recent administrations Medication Order MAR Action Action Date Dose Rate Site sodium chloride 0.9 % sterile syringe Intravenous, PRN, Starting on 02/09/25 at 0837, Until Elena 02/10/25 at 0410, Line Care, For initial access of Venous Access Device., Dx: 1. Malignant neoplasm of overlapping sites of left breast in female, estrogen receptor positive (HCC)Indications:Malignant neoplasm of overlapping sites of left breast in female, estrogen receptor positive (HCC) Given 02/09/2025 8:46 AM EDT documented in this encounter Orders Medications Ordered That Jose Angel ht Not Have Been Administered Count Last Ordered Date First Ordered Date sodium chloride 0.9 % sterile syringe 1 12/2024 documented in this encounter Care Teams Credit Card Interviewer Relationship Specialty Start Date End Date [facility] [place] [address] [place] [address] PCP - General Clinic/Center - [facility] ([facility]) 12/03/16 Eden Noble RN Registered Nurse Infusion Therapy 02/09/25 02/09/25 documented as of this encounter
--- OUTSIDE RECORDS SUMMARY | 2025-02-09 08:30 | XMS_ITS | Encounter Summary ---
Author [place] [address] Care Team Providers Care Miniature Set Constructor Name Role Phone Rodriguez Lindo Primary Care Provider [phone] Eden Noble RN Unavailable Unavailable Reason for Visit * Reason Comments Follow-up Breast Cancer Malignant neoplasm o f overlapping sites of left breast in female, estrogen receptor positive (HCC) Encounter Details Date Type Department Care Team (Latest Contact Info) Description 02/09/2025 8:30 AM EDT - 02/09/2025 8:59 AM EDT Hospital Encounter [facility] [place] [address] Ana Rosa Del Angel, [address] [place] [address] Antineoplastic chemotherapy induced anemia (Primary Dx) Discharge Disposition: Home or Self Care Social History Tobacco Use Types Packs/Day Years Used Date Smoking Tobacco: Every Day Cigarettes 0.5 22.4 Started: 11/03/2002 Smokeless Tobacco: Never Tobacco Cessation:Ready to Q uit: Not Asked; Counseling Given: Not Answered Alcohol Use Standard Drinks/Week Comments Not Currently [...] Sign Reading Time Taken Comments Blood Pressure 122/76 02/09/2025 8:49 AM EDT Pulse 74 02/09/2025 8:49 AM EDT Temperature 36.7 C (98 F) 02/09/2025 8:49 AM EDT Respiratory Rate 16 02/09/2025 8:49 AM EDT Oxygen Saturation 98% 02/09/2025 8:49 AM EDT Inhaled Oxygen Concentration - - Weight 81.3 kg (179 lb 4.8 oz) 02/09/2025 8:49 A M EDT Height 167.6 cm (5' 6 ) 02/09/2025 8:49 AM EDT Body Mass Index 28.94 02/09/2025 8:49 AM EDT documented in this encounter Medications at Time [...] * Ana Rosa Del Angel APRN - 02/09/2025 8:30 AM EDT Images from the original note were not included. Patient: Anne Kearney CSN: [id number] Date of : 1985 Age: 40 y.o. Date of Service: 02/09/2025 HEMATOLOGY/ONCOLOGY NEW PATIENT OFFICE NOTE Primary Care Physician: Rodriguez Lindo Referring Physician: Ana Rosa Del Angel APRN Reason for Referral: Breast Cancer CURRENT TREATMENT: 12/15/2024 - TC X 4 (first cycle given in [place]) Outside oncology history: Diagnosis Invasive lobular carcinoma, 2 o'clock left breast, Jul 2024 Grade 2 ER 76%, NM 24%, HER-2 0/negative, Ki67 13% Stage IIB; pT2, pN1a Oncotype DX recurrence score: 17 [facility] BRCA 1/2 CancerNext genetic test: Positive pathogenic mutation detected: BRCA2 History Hepatitis C-treated Treatment Summary 07/29/24 Bilateral mastectomies with positive (09/13) left axillary SLNB by Dr Giovanna Tolentino/[facility] General Surgery 08/16/24 Initiated endocrine hormone therapy with Tamoxifen 20mg daily by Dr Oliveroi Prescott/[facility] Medical Oncology 10/01/24 Prophylactic total hysterectomy with bilateral salpino-oophorectomy by Dr Ministerio Gamino/[facility] 10/11/24 - 12/01/24 Completed adjuvant radiation therapy with 5040cGy over 28 fractions to left breast[address] Dr Angelito Pierson/[facility] Radiation Oncology 10/18/24 Discontinue Tamoxifen. Initiate Letrozole 2.5mg daily by Dr Oliverio Prescott/[facility] Medical Oncology. 12/15/24 Taxotere, Cyclophosphamide + GCSF every for 3 weeks x4 cycles Cancer History 06/14/24 Bilateral screening mammogram ([facility]): No suspicious mammographic findings in the RIGHT [...] in the pelvis. 06/18/24 Left diagnostic mammogram ([facility]): LEFT breast 4 mm oval, equal density [...] is at least 1.4 cm. ER 76%, NM 24%, HER-2 0/negative, Ki67 13% 06/29/24 MRI bilateral breast ([facility]): The breast tissue is heterogeneously dense with [...] axillary or internal mammary lymphadenopathy identified. 06/29/24 [facility] Noquo 1/ CancerNext genetic test: Positive pathogenic mutation detected: BRCA2 Bilateral mastectomies with positive (1) left axillary SLNB by Dr Giovanna Tolentino/[facility] General Surgery 07/29/24 Left breast, total [...] with Tamoxifen 20mg daily by Dr Oliverio Prescott/[facility] Medical Oncology 08/16/24 [facility] labs: CEA 3.75, CA 27-29 14; CBC-WBC 14.6; ANC 8.7; ALC 4.2; Hgb 12.1; MCV 88.9; platelets 361,000; CMP WNL; ferritin 19, iron 34, fe sat 7% 08/18/24 CT chest ([facility]): No evidence of metastatic disease in the chest. Postoperative change of bilateral mastectomy. 08/18/24 CT abd/pelvis ([facility]): No evidence of metastatic disease in the abdomen or pelvis. 08/18/24 Bone scan ([facility]): No evidence of osteoblastic metastatic disease by bone scan. 08/30/24 Oncotype DX recurrence score: 17 09/16/[address] Angelito Pierson/[facility] Radiation Oncology who recommended adjuvant radiation therapy with 5040 cGy over 28 fractions to left breast/[facility]. 09/20/[address] Oliverio Prescott/[facility] Medical Oncology who recommended referral to [facility] [employer]ER[facility] for prophylactic hysterectomy due to positive BRCA2 [...] + Ribociclib + Zometa. 09/27/24 Bone density (P): Normal 10/01/24 Prophylactic total hysterectomy with bilateral salpino-oophorectomy by Dr Ministerio Gamino/[facility] [facility] 10/01/24 Uterus, cervix, bilateral tubes and ovaries, hysterectomy and bilateral salpingo-oophorectomy: Chronic cervicitis. Proliferative endometrium. Endometrial polyp. Adenomyosis. Completely transected right and left fallopian tubes and unremarkable fimbrial epithelial surface. Mesonephric cyst associated both left and right fallopian tubes. Corpora albicantia of right ovary.Corpora albicantia and 1 corpus hemorrhagicum of left ovary. Uterine weight of 141.7 g. 10/03/24 CT abd/pelvis ([facility]): Moderate pneumoperitoneum with scattered extraperitoneal air [...] fractions to left breast by Dr Angelito Pierson/[facility] Radiation Oncology 10/18/24 Follow-up evaluation with Dr Oliverio Prescott/[facility] Medical Oncology who recommended to discontinue Tamoxifen, initiate Letrozole 2.5mg daily and to anticipate adjuvant Taxotere 75mg/m2, Cyclophosphamide 600mg/m2 every 3 weeks x4 cycles 10/18/24 Discontinue Tamoxifen. Initiate Letrozole 2.5mg daily by Dr Oliverio Prescott/[facility] Medical Oncology 11/03/24 CT chest ([facility]): No acute abnormality in the chest. 11/03/24 US venous doppler upper right extremity ([facility]): There is no evidence of deep venous thrombosis of the right upper extremity. There is partial nonocclusive superficial thrombus in the cephalic vein. 12/01/24 Completed adjuvant radiation therapy with 5040cGy over 28 fractions to left breast by Dr Angelito Pierson/[facility] Radiation Oncology 12/15/24 First dose of TC HISTORY OF PRESENT ILLNESS: CC: Chief Complaint Patient presents with Follow-up Breast Cancer Malignant neoplasm of overlapping sites of left breast in female, estrogen receptor positive (HCC) Patient is a 40 y.o. female who presents for breast cancer follow up and treatment. First dose of TC in [facility] and moved locally and here to continue her treatment S/p C2 TC 02/01 Diarrhea, pain, nausea/vomiting, mouth sores after chemo last week Took imodium for diarrhea last week then slowed down over the weekend Unscheduled visit made for her here on 02/04 but she states her was in the ED and unable to make it Went to for uncontrolled pain on Wednesday 02/07 - got fluids, IV dilaudid and oxycodone Got refill on chronic pain medication at visit last visit 01/14 x 30 days - due for refill Did not want to get established with pain specialist locally and [place] No nausea, some abdominal discomfort +BM last night normal To see new PCP on 01/30 in [place] - Dr. Garza Has scheduled pain visit on 01/[address] Neves in [place] HISTORY: Medical, Surgical, Social, Family histories were reviewed MEDICATIONS & ALLERGIES Medications and Allergies reviewed PHYSICAL EXAM: Vitals: 02/09/25 0849 BP: 122/76 Pulse: 74 Resp: 16 Temp: 98 ??F (36.7 ??C) SpO2: 98% Wt Readings from Last 2 Encounters: 02/09/25 179 lb 4.8 oz (81.3 kg) 02/01/25 179 lb 3.2 oz (81.3 kg) ECO Pertinent information: Physical Exam Constitutional: Appearance: Normal appearance. Chest: Comments: Here for reference, no exam today. Abdominal: General: Abdomen is flat. There is no distension. Palpations: Abdomen is soft. Tenderness: There is no abdominal tenderness. Musculoskeletal: Cervical back: Normal range of motion and neck supple. Skin: Comments: RCWP clean/intact Neurological: Mental Status: She is alert. Psychiatric: Mood and Affect: Mood normal. Behavior: Behavior normal. MEDICAL DATA REVIEW: Pertinent laboratories, images, pathology results reviewed. ASSESSMENT & PLAN There are no diagnoses linked to this encounter. Stage IIB-Invasive lobular carcinoma, 2 o'clock left breast, Grade 2, ER 76%, NM 24%, HER-2 0/negative, Ki67 13%, pT2, pN1a (sn), Oncotype DX recurrence score: 17Jul 2024 BRCA 2 -she has undergone bilateral [...] not qualify for PARP on her stage Diarrhea, fatigue, low counts - got fluids from ED on 02/09. Had appt here 02/04 but NS. Fluids today. Repeat counts on Friday. With anemia. Genetic assessment 06/29/24 Anni LEONARDO 09/09 CancerNext genetic test: Positive pathogenic mutation detected: [...] team does not plan to continue filling usp -at visit on 02/01 she mentions she plans to stay with current pain specialist that is located in [place] as she does not want to get established with new local provider. -is now at visit today saying she will have a gap of pain medication from 01/14 to her new appts 01/31. We discussed we do not fill chronic pain medication however we also do not want her to go through withdrawal if she runs out. She confirms having new PCP appt and hopes they will take over pain medication at the visit on 01/30 but if not then she will see pain specialist on 01/31 in [place] (earlier she could get). Dr. Hollingsworth will fill 01/13-01/31 percocet but Anne needs to get pain medication fromone provider. She understands this. Dispo: Return for below. Repeat labs on Friday only RN visit to follow Back 02/23 for cycle #3 Thank you for the opportunity to assist in the care of this patient, please feel free to contact meif I can be of any assistance. Ana Rosa Del Angel APRN Hematology and Medical Oncology [facility] documented in this encounter Plan of Treatment Upcoming Encounters Date Type Department Care Team (Late st Contact Info) Description 04/15/2025 8:45 AM EDT Appointment [facility] [place], [place] [phone] 04/15/2025 9:15 AM EDT Appointment [facility] Medical On[facility] [place], [place] [id number] Vane Hollingsworth MD [address] [place] [address] [phone] documented as of this encounter Results * (ABNORMAL) RETICULOCYTE PANEL DIAGNOSTIC (02/14/2025 11:01 AM EDT) Retic Cnt Auto 3.9(H) 0.9 - 2.5 % 02/14/2025 11:15 AM EDT [facility] Retic # 135.5(H) 40.0 - 110.0 x10(3)/mcL 02/14/2025 11:15 AM EDT [facility] Imm. Retic Fraction % 29.1(H) 3.1 - 17.6 % 02/14/2025 11:15 AM EDT [facility] Retic Hgb 35.1 28.0 - 38.0 pg 02/14/2025 11:15 AM EDT [facility] Blood VENOUS STRUCTURE / Unknown Port / Unknown 02/14/2025 11:01 AM EDT 02/14/2025 11:04 AM EDT Narrative [facility] - 02/14/2025 11:15 AM EDT Reticulocyte hemoglobin content (RET-He), a direct measurement of hemoglobinization of the developing reticulocyte, should be interpreted in conjunction with other indices. In various adult studies, values lower than 27-28pg (1,2) have demonstrated specificities for iron deficiency exceeding 90%. In a study of cancer patients, values exceeding 32pg (3) ruled out iron deficiency with a negative predictive value of 98.5%. RET-He has also demonstrated utility for monitoring response to iron replacement therapy (4). The immature reticulocyte fraction (IRF) assesses reticulocyte maturation by measuring the intensity of mRNA staining with the youngest reticulocytes having the highest content. (1)Dejuan, Y., et al. 2017. Int J Hematol 106:116-125. (2)Monico Foy., et al. 2017. Nutrients 9:450. (3)Tayler Echavarria, et al. 2014. Am J Clin Pathol 142:506-512. (4)Evelyn L., et al. 2010. Blood 116:1663-5661. Ana Rosa Del Angel APRN HEMATOLOGY ORDERABLES Ernestine pinedo Result [facility] [address] [facility] , [address] [place] [id number] * FERRITIN (02/14/2025 11:01 AM EDT) Ferritin 144 30 - 150 ng/mL 02/14/2025 12:02 PM EDT [facility] Comment:The lower threshold of 30 is not statistically defined, nor internally validated. The threshold has been updated to more closely reflect a physiologic basis. Ebony Stephen, et al. Physiologically based serum ferritin thresholds for iron deficiency in children and non- women: a [place] National Health and Nutrition Examination Surveys (NHANES) serial cross-sectional study. Lancet Haematol 2021;8:e572-82. Blood VENOUS STRUCTURE / Unknown Port / Unknown 02/14/2025 11:01 AM EDT 02/14/2025 11:04 AM EDT Narrative [facility] - 02/14/2025 12:02 PM EDT Ingestion of manda doses of biotin (>5 mg/day) taken within 8 hours of drawing blood sample can interfere with this immunoassay test. Ana Rosa Del Angel APRN CHEMISTRY ORDERABLES Final Result Performing Organization Address [facility] Co de Phone Number [facility], [address] , [place] [address] * IRON+TIBC (02/14/2025 11:01 AM EDT) [facility] Iron 63 30 - 160 mcg/dL 02/14/2025 12:02 PM EDT [facility], [facility] Transferrin 205 200 - 360 mg/dL 02/14/2025 12:02 PM EDT [facility], [facility] Transferrin Saturation 22 20 - 50 % 02/14/2025 12:02 PM EDT [facility], [facility] TIBC 287 250 - 400 mcg/dL 02/14/2025 12:02 PM EDT [facility], [facility] Blood VENOUS STRUCTURE / Unknown Port / Unknown 02/14/2025 11:01 AM EDT 02/14/2025 11:04 AM EDT Ana Rosa Del Angel APRN CHEMISTRY ORDERABLES Final Result Performing Organization Address [facility] de Phone Number [facility], [address] , [place] [address] * (ABNORMAL) CBC WITH DIFF (02/14/2025 11:01 AM EDT) [facility] WBC 9.3 3.7 - 10.3 x10(3)/mc L 02/14/2025 11:08 AM EDT [facility] RBC 3.50(L) 3.90 - 5.20 x10(6)/mc L 02/14/2025 11:08 AM EDT [facility] Hgb 10.7(L) 11.2 - 15.7 g/dL 02/14/2025 11:08 AM EDT [facility] Hct 34.3 34.0 - 45.0 % 02/14/2025 11:08 AM EDT [facility] MCV 98.0 80.0 - 100.0 fL 02/14/2025 11:08 AM EDT [facility] MCH 30.6 26.0 - 34.0 pg 02/14/2025 11:08 AM EDT [facility] MCHC 31.2 30.7 - 35.5 g/dL 02/14/2025 11:08 AM EDT [facility] RDW 14.9 <=14.9 % 02/14/2025 11:08 AM EDT [facility] Platelet 194 155 - 369 x10(3)/mc L 02/14/2025 11:08 AM EDT [facility] MPV 9.2 8.8 - 12.5 fL 02/14/2025 11:08 AM EDT [facility] Neut # Prelim 6.5(H) 1.6 - 6.1 x10(3)/mc L 02/14/2025 11:08 AM [facility] Comment:Preliminary automate d absolute neutrophil count. Value may change if manual differential is indicated. Neut Percent 70.0 % 02/14/2025 11:08 AM EDT [facility] Comment:Neutrophils equals s egs plus bands Imm Gran% 4.1 % 02/14/2025 11:08 AM T [facility] Comment:Automated count of m etamyelocytes, myelocytes and promyelocytes. IG > 3% may predict positive blood cultures with 98% specificity and 92% PPV. Karthik Peña., et al. (2003). [place] Journal of Clinical Pathology, 120:5, 79 799 Lymph Percent 15.1 % 02/14/2025 11:08 AM EDT [facility] [place] Percent 10.3 % 02/14/2025 11:08 AM EDT [facility] Eos Percent 0.1 % 02/14/2025 11:08 AM EDT [facility] Baso Percent 0.4 % 02/14/2025 11:08 AM EDT [facility] Neut # 6.5(H) 1.6 - 6.1 x10(3)/mc L 02/14/2025 11:08 AM EDT [facility] Comment:Neutrophils equals s egs plus bands IMMGRAN# 0.4(H) 0.0 - 0.1 x10(3)/mc L 02/14/2025 11:08 AM EDT [facility] Comment:Automated count of m etamyelocytes, myelocytes and promyelocytes. An absolute IG <0.1 is reported as 0.0. Lymph # 1.4 1.2 - 3.9 x10(3)/mc L 02/14/2025 11:08 AM EDT [facility] [place] # 1.0(H) 0.3 - 0.9 x10(3)/mc L 02/14/2025 11:08 AM EDT [facility] Eos# 0.0 0.0 - 0.5 x10(3)/mc L 02/14/2025 11:08 AM EDT [facility] Baso # 0.0 0.0 - 0.1 x10(3)/mc L 02/14/2025 11:08 AM EDT [facility] Blood VENOUS STRUCTURE / Unknown Port / Unknown 02/14/2025 11:01 AM EDT 02/14/2025 11:04 AM EDT us Ana Rosa Del Angel [facility] HEMATOLOGY ORDERABLES Ernestine pinedo Result [facility] [address] [place] [phone] documented in this encounter Visit Diagnoses Diagnosis Antineoplastic chemotherapy induced anemia- Primary documented in this encounter Historical Medications * This list may reflect changes made after this encounter. LICE TREATMENT 1 % Top Liquid APPLY TOPICALLY TO AREA FOR 1 DOSE 02/03/2025 acetaminophen (TYLENOL) 500 mg Oral Tablet Take 1,000 mg by mouth every 6 hours as needed. 02/07/2025 added in this encounter Care Teams Miniature Set Constructor Relationship Specialty Start Date End Date Rodriguez Lindo [address] [place] [id number] PCP - General Clinic/Center - [facility] ([facility]) 12/03/16 Eden Noble, RN Registered Nurse Infusion Therapy 02/09/25 02/09/25 documented as of this encounter
--- OUTSIDE RECORDS SUMMARY | 2025-02-09 09:00 | XMS_ITS | Encounter Summary ---
Author Organization [place] [address] Care Team Providers Care Operations Architect Name Role Phone Rodriguez Lindo Primary Care Provider +1- [phone] Eden Noble RN Unavailable Unavailable Reason for Visit * Oncology Medication Prior Authorization (Routine) - Closed Specialty Diagnoses / Procedures Referred By Raman t Referred To Contact Diagnoses Malignant neoplasm of overlapping sites of left breast in female, estrogen receptor positive (HCC) Procedures ONCOLOGY MEDICATION AUTHORIZATION Vane Hollingsworth MD [address] [place] [address] Phone: tel: fax: Vane Hollingsworth MD [address] [place] [address] Phone: tel: fax: Referral ID Status Reason Start Date Expiration Date Visits Re quested Visits Authorized [id number] Closed 02/09/2025 02/09/2026 1 1 Encounter Details Date Type Department Care Team (Latest Contact Info) Description 02/09/2025 9:00 AM EDT - 02/09/2025 11:59 PM EDT Hospital Encounter [facility] [place] [address] Malignant neoplasm of overlapping sites [...] Sign Reading Time Taken Comments Blood Pressure 137/65 02/09/2025 11:26 AM EDT Pulse 78 02/09/2025 11:26 AM EDT Temperature - - Respiratory Rate 16 02/09/2025 11:26 AM EDT Oxygen Saturation - - Inhaled Oxygen Concentration - - Weight - [...] by mouth daily. 30 Tablet 2 01/14/2025 oxyCODONE-acetaminop hen (PERCOCET) 10-325 mg Oral TabletIndications:Lo w back pain, unspecified back pain laterality, unspecified chronicity, unspecified whether sciatica present Take 1 Tablet by mouth every 6 hours as needed for Chronic Pain (G89.29). Do not fill before 02/13 date. 76 Tablet 02/13/2025 promethazine (PHENERGAN) 12.5 mg Oral TabletIndications:Ma lignant [...] mouth every 6 hours as needed. 02/07/2025 06/12/202 5 documented as of this encounter Discharge Disposition Disposition Code Departure Means Destination Home or Self Care documented in this encounter Miscellaneous Notes * Patient Instructions - Eden Noble RN - 02/09/2025 9:[address] [facility] Discharge Instructions Thank you for entrusting the [facility] with your care. We hope you are pleased with your outpatient care and services. Because we are most concerned with your health, we suggest you carefully read the following discharge instructions: Your Discharge Instructions: MEDICATION INSTRUCTIONS: Treatment received today: Orders Placed This Encounter 0.9 % NaCl infusion ondansetron (ZOFRAN) 12 mg, dexAMETHasone (DECADRON) 10 mg in dextrose 5% 58.5 mL IVPB Reviewed medications administered today and possible side [...] infection DON'T WAIT, PLEASE CALL US FIRST [phone]. [FOR URGENT ISSUES PLEASE DO NOT LEAVE A MESSAGE, FOLLOW PROMPTS TO THE DOCTOR METER REPAIRER] For Gynecology / Oncology call : [phone] Our hours of operation are Friday - Friday 8:00 AM - 4:30 PM. [place] [address] 137 [phone] [address] Results for orders placed or performed during the hospital encounter of 02/09/25 CBC WITH DIFF Result Value Ref Range WBC 28.7 (H) 3.7 - 10.3 x10(3)/mcL RBC 3.12 (L) 3.90 - 5.20 x10(6)/mcL Hgb 9.6 (L) 11.2 - 15.7 g/dL Hct 29.9 (L) 34.0 - 45.0 % MCV 95.8 80.0 - 100.0 fL MCH 30.8 26.0 - 34.0 pg MCHC 32.1 30.7 - 35.5 g/dL RDW 13.9 <=14.9 % Platelet 217 155 - 369 x10(3)/mcL MPV 9.5 8.8 - 12.5 fL NRBC Auto % 0.8 (H) <=0.0 % NRBC# 0.2 x10(3)/mcL Segs 71 % Lymphs 8 % Monos 8 % Eos 0 % Baso 0 % Metamyelocyte 5 % Myelo 2 % Promyelo % 6 % Neut # 20.4 (H) 1.6 - 6.1 x10(3)/mcL Lymph # 2.3 1.2 - 3.9 x10(3)/mcL Mobile # 2.3 (H) 0.3 - 0.9 x10(3)/mcL Eos # Manual 0.0 0.0 - 0.5 x10(3)/mcL Baso # Manual 0.0 0.0 - 0.1 x10(3)/mcL Metamyelo # 1.4 x10(3)/mcL Myelo # 0.6 x10(3)/mcL Promyelo # 1.7 x10(3)/mcL Hypochrom Slight COMPREHENSIVE METABOLIC PANEL Result Value Ref Range Sodium 142 136 - 145 mmol/L Potassium 3.4 (L) 3.5 - 5.0 mmol/L Chloride 107 98 - 107 mmol/L Total CO2 23 22 - 29 mmol/L Anion Gap 12 7 - 16 mmol/L Calcium 9.3 8.6 - 10.4 mg/dL Glucose Lvl 101 (H) 70 - 99 mg/dL BUN 10 6 - 20 mg/dL Creatinine 0.77 0.51 - 1.30 mg/dL Albumin 4.0 3.5 - 5.2 gm/dL Total Protein 6.3 (L) 6.4 - 8.3 gm/dL Bili Total <0.2 (L) 0.2 - 1.3 mg/dL ALT 15 <=41 U/L AST 23 <=40 U/L Alk Phos 109 36 - 123 U/L eGFR (CKD-EPIcr 2020) 99 >=60 mL/min/1.73 m2 MAGNESIUM LEVEL Result Value Ref Range Magnesium 2.1 1.6 - 2.4 mg/dL documented in this encounter Plan of Treatment Upcoming Encounters Date Type Department Care Team (Late st Contact Info) Description 04/15/2025 8:45 AM EDT Appointment [facility] [place], [place] [id number] 04/15/2025 9:15 AM EDT [facility]ointment [facility] [place], [place] [id number] Vane Hollingsworth MD [address] [place] [phone] documented as of this encounter Visit Diagnoses Diagnosis Malignant neoplasm of overlapping sites of left breast in female, estrogen receptor positive (HCC)- Primary documented in this encounter Administered Medications Inactive Administered Medications - up to 1 most recent administrations Medication Order MAR Action Action Date Dose Rate Site 0.9 % NaCl infusion Intravenous, at 500 mL/hr, CONTINUOUS, Starting on Fri02/09/25 at 1030, Until Fri02/09/25 at 1229, Hyperemesis and Dehydration supportive plan, Dx: 1. Malignant neoplasm of overlapping sites of left breast in female, estrogen receptor positive (HCC)Indications:Malignant neoplasm of overlapping sites of left breast in female, estrogen receptor positive (HCC) New Bag 02/09/2025 10:06 AM EDT 500 mL/hr dexAMETHasone (DECADRON) injection 10 mg 10 mg, Intravenous, ONCE, 1 dose, On Fri02/09/25 at 1015, Dx: 1. Malignant neoplasm of overlapping sites of left breast in female, estrogen receptor positive (HCC)Indications:Malignant neoplasm of overlapping sites of left breast in female, estrogen receptor positive (HCC) Given 02/09/2025 10:18 AM EDT 10 mg heparin flush 100 unit/mL injection 500 Units 500 Units, Intravenous, PRN, Starting on Fri02/09/25 at 1001, Until Elena 02/10/25 at 0405, Line Care, For Venous Access Device care and maintenance., Dx: 1. Malignant neoplasm of overlapping sites of left breast in female, estrogen receptor positive (HCC)Indications:Malignant neoplasm of overlapping sites of left breast in female, estrogen receptor positive (HCC) Given 02/09/2025 11:25 AM EDT 500 Units ondansetron (ZOFRAN) injection 8 mg 8 mg, Intravenous, ONCE, 1 dose, On Fri02/09/25 at 1015, Dx: 1. Malignant neoplasm of overlapping sites of left breast in female, estrogen receptor positive (HCC)Indications:Malignant neoplasm of overlapping sites of left breast in female, estrogen receptor positive (HCC) Given 02/09/2025 10:18 AM EDT 8 mg sodium chloride 0.9% syringe Intravenous, PRN, Starting on Fri02/09/25 at 1001, Until Elena 02/10/25 at 0405, Line Care, For Venous Access Device care and maintenance., Dx: 1. Malignant neoplasm of overlapping sites of left breast in female, estrogen receptor positive (HCC)Indications:Malignant neoplasm of overlapping sites of left breast in female, estrogen receptor positive (HCC) Given 02/09/2025 11:25 AM EDT 10 mL documented in this encounter Orders Medications Ordered That Jose Angel ht Not Have Been Administered Count Last Ordered Date First Ordered Date ondansetron (ZOFRAN) 12 mg, dexAMETHasone (DECADRON) 10 mg in dextrose 5% 58.5 mL IVPB 1 02/09/2025 documented in this encounter Care Teams Operations Architect Relationship Specialty Start Date [facility] [address] [place] [address] PCP - General Clinic/Center - [facility]) 12/03/16 Eden Noble RN Registered Nurse Infusion Therapy 02/09/25 02/09/25 documented as of this encounter
--- OUTSIDE RECORDS SUMMARY | 2025-02-14 10:51 | XMS_ITS | Encounter Summary ---
Author Organization [place] [address] Care Team Providers Care Policy Services Representative Name Role Phone Rodriguez Lindo Primary Care Provider +1- [phone] Encounter Details Date Type Department Care Team (Latest Contact Info) Description 02/14/2025 10:51 AM EDT - 02/14/2025 11:03 AM EDT Hospital Encounter [facility] [place], [place] [id number] Malignant neoplasm of overlapping sites of left [...] AM EDT Appointment [place] [address] 04/15/2025 9:15 AM EDT [facility]ment [facility] [place] [address] Vane Hollingsworth MD [address] [place] [id number] documented as of this encounter Procedures Procedure [...] % 02/14/2025 11:15 AM EDT [facility] [employer] Retic # 135.5(H) 40.0 - 110.0 x10(3)/mcL 02/14/2025 11:15 AM EDT [facility] [employer] Imm. Retic Fraction % 29.1(H) 3.1 - 17.6 % 02/14/2025 11:15 AM EDT [facility] [employer] Retic Hgb 35.1 28.0 - 38.0 pg 02/14/2025 11:15 AM EDT [facility], [employer] Blood VENOUS STRUCTURE / Unknown Port / Unknown 02/14/2025 11:01 AM EDT 02/14/2025 11:04 AM EDT Narrative [facility], [facility] - 02/14/2025 11:15 AM EDT Reticulocyte hemoglobin [...] 142:506-512. (4)Evelyn, L., et al. 2010. Blood 116:4389-4783. us Ana Rosa L O[employer] HEMATOLOGY ORDERABLES Ernestine l Result Performing Organization Address City/[facility]/ZIP Co de Phone Number [facility] , [place] [address] * FERRITIN (02/14/2025 11:01 AM EDT) Ferritin 144 30 - 150 ng/mL 02/14/2025 12:02 PM EDT [facility], [facility] Comment:The lower threshold of 30 is not [...] EDT 02/14/2025 11:04 AM EDT Narrative [facility] [facility], [facility] - 02/14/2025 12:02 PM EDT Ingestion of manda doses of biotin (>5 mg/day) taken within 8 hours of drawing blood sample can interfere with this immunoassay test. Ana Rosa Del Angel APRN CHEMISTRY ORDERABLES Final Result Performing Organization Address [facility]/ZIP Co de Phone Number [facility] , [place] [address] * IRON+TIBC (02/14/2025 11:01 AM EDT) Iron 63 30 - 160 mcg/dL 02/14/2025 12:02 PM EDT [facility] Transferrin 205 200 - 360 mg/dL 02/14/2025 12:02 PM EDT [facility], [facility] Transferrin Saturation 22 20 - 50 % 02/14/2025 12:02 PM EDT [facility] TIBC 287 250 - 400 mcg/dL 02/14/2025 12:02 PM EDT [facility], [facility] Blood VENOUS STRUCTURE / Unknown Port / Unknown 02/14/2025 11:01 AM EDT 02/14/2025 11:04 AM EDT us Ana Rosa Del Angel APRN CHEMISTRY ORDERABLES Final Result [facility] [facility] [address] [facility] , [address] [place] [id number] * (ABNORMAL) CBC WITH DIFF (02/14/2025 11:01 AM EDT) WBC 9.3 3.7 - 10.3 x10(3)/mc L 02/14/2025 11:08 AM EDT [facility] RBC 3.50(L) 3.90 - 5.20 x10(6)/mc L 02/14/2025 11:08 AM EDT [facility] Hgb 10.7(L) 11.2 - 15.7 g/dL 02/14/2025 11:08 AM EDT [facility] Hct 34.3 34.0 - 45.0 % 02/14/2025 11:08 AM EDT [facility] MCV 98.0 80.0 - 100.0 fL 02/14/2025 11:08 AM EDT [facility] MCH 30.6 26.0 - 34.0 pg 02/14/2025 11:08 AM EDT [facility] MCHC 31.2 30.7 - 35.5 g/dL 02/14/2025 11:08 AM EDT [facility] RDW 14.9 <=14.9 % 02/14/2025 11:08 AM EDT [facility] Platelet 194 155 - 369 x10(3)/mc L 02/14/2025 11:08 AM EDT [facility] MPV 9.2 8.8 - 12.5 fL 02/14/2025 11:08 AM EDT [facility] Neut # Prelim 6.5(H) 1.6 - 6.1 x10(3)/mc L 02/14/2025 11:08 AM EDT [facility] Comment:Preliminary automate d absolute neutrophil count. Value may change if manual differential is indicated. Neut Percent 70.0 % 02/14/2025 11:08 AM EDT [facility] Comment:Neutrophils equals s egs plus bands Imm Gran% 4.1 % 02/14/2025 11:08 AM EDT [facility] Comment:Automated count of m etamyelocytes, myelocytes and promyelocytes. IG > 3% may predict positive blood cultures with 98% specificity and 92% PPV. Jordana Peña, et al. (2003). Japanese Journal of Clinical Pathology, 120:5 791 799 Lymph Percent 15.1 % 02/14/2025 11:08 AM EDT [facility] [place] Percent 10.3 % 02/14/2025 11:08 AM EDT [facility] Eos Percent 0.1 % 02/14/2025 11:08 AM EDT [facility] Baso Percent 0.4 % 02/14/2025 11:08 AM T [facility] Neut # 6.5(H) 1.6 - 6.1 x10(3)/mc L 02/14/2025 11:08 AM EDT [facility] Comment:Neutrophils equals s egs plus bands IMMGRAN# 0.4(H) 0.0 - 0.1 x10(3)/mc L 02/14/2025 11:08 AM EDT [facility] Comment:Automated count of m etamyelocytes, myelocytes and promyelocytes. An absolute IG <0.1 is reported as 0.0. Lymph # 1.4 1.2 - 3.9 x10(3)/mc L 02/14/2025 11:08 AM EDT [facility] [place] # 1.0(H) 0.3 - 0.9 x10(3)/mc L 02/14/2025 11:08 AM EDT [facility] Eos# 0.0 0.0 - 0.5 x10(3)/mc L 02/14/2025 11:08 AM EDT [facility] Baso # 0.0 0.0 - 0.1 x10(3)/mc L 02/14/2025 11:08 AM [facility] Blood VENOUS STRUCTURE / Unknown Port / Unknown 02/14/2025 11:01 AM EDT 02/14/2025 11:04 AM EDT us Ana Rosa Del Angel APRN HEMATOLOGY ORDERABLES Ernestine pinedo Result [facility] [address] [place] [address] documented in this encounter Visit Diagnoses Diagnosis [...] mL documented in this encounter Care Teams Policy Services Representative Relationship Specialty Start Date End Date Rodriguez Lindo [address] [place] [id number] PCP - General Clinic/Center - [facility] ([facility]) 12/03/16 documented as of this encounter
--- OUTSIDE RECORDS SUMMARY | 2025-02-14 11:04 | XMS_ITS | Encounter Summary ---
Author Organization [place] [address] Care Team Providers Care Dermatologist Name Role Phone Rodriguez Lindo Primary Care Provider +1- [phone] Reason for Visit * Reason Comments Cancer Here to discuss lab results. Encounter Details Date Type Department Care Team (Latest Contact Info) Description 02/14/2025 11:04 AM EDT - 02/14/2025 11:59 PM EDT Hospital Encounter [facility] [place], [place] [phone] Malignant neoplasm of overlapping sites of left [...] documented in this encounter Progress Notes * Cecy Rutledge RN - 02/14/2025 11:30 AM EDT CBC results reviewed with patient. There is improvement. I let her know the iron studies may not beresulted until a little later, but Dr. Hollingsworth will review and if she needs iron, we will start the process of ordering and getting authorization so she can receive the first dose next week. She reports she is tired all the time . Her reports she won't rest, stating she stayed up with her 5 mos old granddaughter until 3 am so the parents could get a good night's sleep. We discussed the importance of listening to her body, getting in enough fluids and protein. She vu and statesthings don't taste good, but she is trying. documented in this encounter Plan of Treatment Upcoming Encounters Date Type Department Care Team (Late st Contact Info) Description 04/15/2025 8:45 AM EDT Appointment [facility] [place], [place] [phone] 04/15/2025 9:15 AM EDT Appointment [facility] [place] [address] Vane Hollingsworth MD [address] [place] [phone] documented as of this encounter Visit Diagnoses Diagnosis Malignant neoplasm of overlapping sites of left breast in female, estrogen receptor positive (HCC)- Primary documented in this encounter Care Teams Dermatologist Relationship Specialty Start Date End Date [facility] [address] [place] [address] PCP - General Clinic/Center - [facility] ([facility]) 12/03/16 documented as of this encounter
--- OUTSIDE RECORDS SUMMARY | 2025-02-21 08:13 | XMS_ITS | Encounter Summary ---
Author [place] [address] Care Team Providers Care Personal Injury Paralegal Name Role Phone Rodriguez Lindo Primary Care Provider +1- [phone] Vane Hollingsworth MD Unavailable +1- [phone] Terri Tay RN Unavailable Unavailable Encounter Details Date Type Department Care Team (Latest Contact Info) Description 02/21/2025 8:13 AM EDT - 02/21/2025 8:26 AM EDT Hospital Encounter [place] [address] Malignant neoplasm of overlapping sites [...] AM EDT Appointment [place] [address] 04/15/2025 9:15 AM EDT [facility]ment [facility] [place] [address] Vane Hollingsworth MD [address] [place] [phone] documented as of this encounter Procedures Procedure [...] COMPREHENSIVE METABOLIC PANEL (02/21/2025 8:24 AM EDT) [facility] Sodium 143 136 - 145 mmol/L 02/21/2025 8:46 AM [facility] Potassium 3.9 3.5 - 5.0 mmol/L 02/21/2025 8:46 AM [facility] Chloride 111(H) 98 - 107 mmol/L 02/21/2025 8:46 AM [facility] Total CO2 23 22 - 29 mmol/L 02/21/2025 8:46 AM [facility] Anion Gap 9 7 - 16 mmol/L 02/21/2025 8:46 AM [facility] Calcium 8.8 8.6 - 10.4 mg/dL 02/21/2025 8:46 AM [facility] Glucose Lvl 95 70 - 99 mg/dL 02/21/2025 8:46 AM [facility] BUN 9 6 - 20 mg/dL 02/21/2025 8:46 AM [facility] Creatinine 0.68 0.51 - 1.30 mg/dL 02/21/2025 8:46 AM [facility] Albumin 3.6 3.5 - 5.2 gm/dL 02/21/2025 8:46 AM [facility] Total Protein 5.9(L) 6.4 - 8.3 gm/dL 02/21/2025 8:46 AM [facility] Bili Total <0.2(L) 0.2 - 1.3 mg/dL 02/21/2025 8:46 AM [facility] ALT 11 <=41 U/L 02/21/2025 8:46 AM [facility] AST 18 <=40 U/L 02/21/2025 8:46 AM [facility] Alk Phos 81 36 - 123 U/L 02/21/2025 8:46 AM [facility] eGFR (CKD-EPIcr 2020) 112 >=60 mL/min/1.7 3 m2 02/21/2025 8:46 AM [facility] Comment:Estimated GFR was ca lculated using the CKD-EPIcr (2020) equation refit without race. The equation is recommended by the National Kidney Foundation - [place] [employer] of Nephrology Task Force. Blood VENOUS STRUCTURE / Unknown Port / Unknown 02/21/2025 8:24 AM EDT 02/21/2025 8:26 AM EDT Isaias Miller MD CHEMISTRY ORDERABLES Final Result [facility] [address] [place] [id number] * (ABNORMAL) CBC WITH DIFF (02/21/2025 8:24 AM EDT) WBC 5.6 3.7 - 10.3 x10(3)/mc L 02/21/2025 8:32 AM EDT [facility] RBC 3.19(L) 3.90 - 5.20 x10(6)/mc L 02/21/2025 8:32 AM EDT [facility] Hgb 10.1(L) 11.2 - 15.7 g/dL 02/21/2025 8:32 AM EDT [facility] Hct 31.5(L) 34.0 - 45.0 % 02/21/2025 8:32 AM EDT [facility] MCV 98.7 80.0 - 100.0 fL 02/21/2025 8:32 AM EDT [facility] MCH 31.7 26.0 - 34.0 pg 02/21/2025 8:32 AM EDT [facility] MCHC 32.1 30.7 - 35.5 g/dL 02/21/2025 8:32 AM EDT [facility] RDW 15.9(H) <=14.9 % 02/21/2025 8:32 AM EDT [facility] Platelet 305 155 - 369 x10(3)/mc L 02/21/2025 8:32 AM EDT [facility] MPV 9.0 8.8 - 12.5 fL 02/21/2025 8:32 AM EDT [facility] Neut # Prelim 3.7 1.6 - 6.1 x10(3)/mc L 02/21/2025 8:32 AM EDT [facility] Comment:Preliminary automate d absolute neutrophil count. Value may change if manual differential is indicated. Neut Percent 65.7 % 02/21/2025 8:32 AM EDT [facility] Comment:Neutrophils equals s egs plus bands Imm Gran% 0.2 % 02/21/2025 8:32 AM EDT [facility] Comment:Automated count of m etamyelocytes, myelocytes and promyelocytes. Lymph Percent 14.9 % 02/21/2025 8:32 AM EDT [facility] [place] Percent 18.3 % 02/21/2025 8:32 AM EDT [facility] Eos Percent 0.0 % 02/21/2025 8:32 AM EDT [facility] Baso Percent 0.9 % 02/21/2025 8:32 AM EDT [facility] Neut # 3.7 1.6 - 6.1 x10(3)/mc L 02/21/2025 8:32 AM EDT [facility] Comment:Neutrophils equals s egs plus bands IMMGRAN# 0.0 0.0 - 0.1 x10(3)/mc L 02/21/2025 8:32 AM EDT [facility] Comment:Automated count of m etamyelocytes, myelocytes and promyelocytes. An absolute IG <0.1 is reported as 0.0. Lymph # 0.8(L) 1.2 - 3.9 x10(3)/mc L 02/21/2025 8:32 AM EDT [facility] [place] # 1.0(H) 0.3 - 0.9 x10(3)/mc L 02/21/2025 8:32 AM EDT [facility] Eos# 0.0 0.0 - 0.5 x10(3)/mc L 02/21/2025 8:32 AM T [facility] Baso # 0.1 0.0 - 0.1 x10(3)/mc L 02/21/2025 8:32 AM [facility] Blood VENOUS STRUCTURE / Unknown Port / Unknown 02/21/2025 8:24 AM EDT 02/21/2025 8:26 AM EDT Isaias Miller MD HEMATOLOGY ORDERABLES Final Result [facility] [address] [place] [address] documented in this encounter Visit Diagnoses Diagnosis Malignant neoplasm of overlapping sites of left breast in female, estrogen receptor positive (HCC)- Primary documented in this encounter Administered Medications Inactive Administered Medications - up to 1 most recent administrations Medication Order MAR Action Action Date Dose Rate Site sodium chloride 0.9 % sterile syringe 10 mL 10 mL, Intravenous, ONCE, 1 dose, On 02/21/25 at 0830, For initial access of Venous [...] 02/21/2025 documented in this encounter Care Teams Personal Injury Paralegal Relationship Specialty Start Date End Date [facility] [address] [place] [phone] PCP - General Clinic/Center - [facility] ([facility]) 12/03/16 Vane Hollingsworth MD [address] [place] [address] Internal Medicine-Hematology and Oncology 02/21/25 Terri Tay RN Registered Nurse Infusion Therapy 02/21/25 02/21/25 documented as of this encounter
--- OUTSIDE RECORDS SUMMARY | 2025-02-21 08:27 | XMS_ITS | Encounter Summary ---
Author Organization [place] [address] Care Team Providers Care Retarder Operator Name Role Phone Rodriguez Lindo Primary Care Provider +1- [phone] Vane Hollingsworth MD Unavailable +1- [phone] Terri Tay RN Unavailable Unavailable Reason for Visit * Reason Comments Follow-up Breast Cancer Chemotherapy Encounter Details Date Type Department Care Team (Latest Contact Info) Description 02/21/2025 8:27 AM EDT - 02/21/2025 9:19 AM EDT Hospital Encounter [facility] [place], [place] [id number] Vane Hollingsworth MD [address] [place] [phone] Malignant neoplasm of overlapping sites of left [...] Sign Reading Time Taken Comments Blood Pressure 113/76 02/21/2025 8:46 AM EDT Pulse 80 02/21/2025 8:46 AM EDT Temperature 36.7 C (98 F) 02/21/2025 8:46 AM EDT Respiratory Rate 20 02/21/2025 8:46 AM EDT Oxygen Saturation 98% 02/21/2025 8:46 AM EDT Inhaled Oxygen Concentration - - Weight 82.1 kg (181 lb 1.6 oz) 02/21/2025 8:46 A M EDT Height 167.6 cm (5' 6 ) 02/21/2025 8:46 AM EDT Body Mass Index 29.23 02/21/2025 8:46 AM EDT documented in this encounter Medications [...] documented in this encounter Progress Notes * Vane Hollingsworth MD - 02/21/2025 9:00 AM EDT Images from the original note were not included. Patient: Anne Kearney [facility]: [id number] Date of : 1985 Age: 40 y.o. Date of Service: 02/21/2025 HEMATOLOGY/ONCOLOGY PATIENT OFFICE NOTE CURRENT TREATMENT: 12/15/2024 - TC X 4 (first cycle given in [place]) Outside oncology history: Diagnosis Invasive lobular carcinoma, 2 o'clock left breast, Jul 2024 Grade 2 ER 76%, AR 24%, HER-2 0/negative, Ki67 13% Stage IIB; pT2, pN1a Oncotype DX recurrence score: 17 [facility] BRCA 1/2 CancerNext genetic test: Positive pathogenic mutation detected: BRCA2 History Hepatitis C-treated Treatment Summary 07/29/24 Bilateral mastectomies with positive (09/13) left axillary SLNB by Dr Giovanna Tolentino/[facility] General Surgery 08/16/24 Initiated endocrine hormone therapy with Tamoxifen 20mg daily by Dr Oliverio Prescott/[facility] Medical Oncology 10/01/24 Prophylactic total hysterectomy with bilateral salpino-oophorectomy by Dr Ministerio Gamino/[facility] AQUATIC BIOLOGIST 10/11/24 - 12/01/24 Completed adjuvant radiation therapy with 5040cGy over [address] Angelito Pierson/[facility] Radiation Oncology 10/18/24 Discontinue Tamoxifen. Initiate Letrozole 2.5mg daily by Dr Oliverio Prescott/[facility] Medical Oncology. 12/15/24 Taxotere, Cyclophosphamide + [...] in the pelvis. 06/18/24 Left diagnostic mammogram (P): LEFT breast 4 mm oval, equal density mass with partially circumscribed, partially obscured margins in the middle to posterior third, outer central breast 3 o'clock position, 5 cm from the nipple. LEFT breast distortion in the posterior third, outer central breast, 2-3 o'clock position, 7 cm from the nipple on cc view 06/18/24 US left breast/axilla ([facility]): Targeted LEFT breast ultrasound 3:00 position, 5 [...] nipple, core needle biopsies: Invasive lobular carcinoma. [place] histologic score Glandular differentiation: Score 3. Nuclear pleomorphism: Score 2. Mitotic rate: Score 1. Overall grade: Grade 2. Maximum tumor diameter is at least 1.4 cm. ER 76%, AR 24%, HER-2 0/negative, Ki67 13% 06/29/24 MRI bilateral breast ([facility]): The breast tissue is heterogeneously dense [...] axillary or internal mammary lymphadenopathy identified. 06/29/24 [facility] [employer] / CancerNext genetic test: Positive pathogenic mutation detected: BRCA2 Bilateral mastectomies with positive (09/13) left axillary SLNB by Dr Giovanna Tolentino/[facility] General Surgery 07/29/24 Left breast, total [...] with Tamoxifen 20mg daily by Dr Oliverio Prescott/[facility] Medical Oncology 08/16/24 [facility] labs: CEA 3.75, CA 27-29 14; CBC-WBC 14.6; ANC 8.7; ALC 4.2; Hgb 12.1; MCV 88.9; platelets 361,000; CMP WNL; ferritin 19, iron 34, fe sat 7% 08/18/24 CT chest ([facility]): No evidence of metastatic disease in the chest. Postoperative change of bilateral mastectomy. 08/18/24 CT abd/pelvis ([facility]): No evidence of metastatic disease in the abdomen or pelvis. 08/18/24 Bone scan ([facility]): No evidence of osteoblastic metastatic disease by bone scan. 08/30/24 Oncotype DX recurrence score: 17 09/16/[address] Angelito Pierson/[facility] Radiation Oncology who recommended adjuvant radiation therapy with 5040 cGy over 28 fractions to left breast/left [facility] wall [facility]. 09/20/[address] Oliverio Prescott/[facility] Medical Oncology who recommended referral to AQUATIC BIOLOGIST for prophylactic hysterectomy due to positive BRCA2 [...] + Ribociclib + Zometa. 09/27/24 Bone density ([facility]): Normal 10/01/24 Prophylactic total hysterectomy with bilateral salpino-oophorectomy by Dr Ministerio Gamino/[facility] AQUATIC BIOLOGIST 10/01/24 Uterus, cervix, bilateral tubes and ovaries, hysterectomy and bilateral salpingo-oophorectomy: Chronic cervicitis. Proliferative endometrium. Endometrial polyp. Adenomyosis. Completely transected right and left fallopian tubes and unremarkable fimbrial epithelial surface. Mesonephric cyst associated both left and right fallopian tubes. Corpora albicantia of right ovary.Corpora albicantia and 1 corpus hemorrhagicum of left ovary. Uterine weight of 141.7 g. 10/03/24 CT abd/pelvis ([facility]): Moderate pneumoperitoneum with scattered extraperitoneal air [...] fractions to left breast by Dr Angelito Pierson/[facility] Radiation Oncology 10/18/24 Follow-up evaluation with Dr Oliverio Prescott/[facility] Medical Oncology who recommended to discontinue Tamoxifen, initiate Letrozole 2.5mg daily and to anticipate adjuvant Taxotere 75mg/m2, Cyclophosphamide 600mg/m2 every 3 weeks x4 cycles 10/18/24 Discontinue Tamoxifen. Initiate Letrozole 2.5mg daily by Dr Oliverio Prescott/[facility] Medical Oncology 11/03/24 CT chest ([facility]): No acute abnormality in the chest. 11/03/24 US venous doppler upper right extremity ([facility]): There is no evidence of deep venous thrombosis of the right upper extremity. There is partial nonocclusive superficial thrombus in the cephalic vein. 12/01/24 Completed adjuvant radiation therapy with 5040cGy over 28 fractions to left breast by Dr Angelito Pierson/[facility] Radiation Oncology 12/15/24 First dose of TC HISTORY OF PRESENT ILLNESS: CC: Chief Complaint Patient presents with Follow-up Breast Cancer Chemotherapy Patient is a 40 y.o. female who presents for breast cancer follow up and treatment. First dose of TC in [place] and moved locally and here to [...] and wanted to [place] No nausea, some abdominal discomfort +BM last night normal To see new PCP on 01/30 in [place] - Dr. Garza - this did Interval hx: Heightended pain with tx, drowsiness, poor appetite. Has scheduled pain visit on 03/[address] Neves in [place]? HISTORY: Medical, Surgical, Social, Family histories were reviewed MEDICATIONS & ALLERGIES Medications and Allergies reviewed PHYSICAL EXAM: Vitals: 02/21/25 0846 BP: 113/76 Pulse: 80 Resp: 20 Temp: 98 ??F (36.7 ??C) SpO2: 98% Wt Readings from Last 2 Encounters: 02/21/25 181 lb 1.6 oz (82.1 kg) 02/09/25 179 lb 4.8 oz (81.3 kg) ECO Pertinent information: Physical [...] breast in female, estrogen receptor positive (HCC) Other orders - Cancel: 0.9 % NaCl infusion - Cancel: palonosetron (ALOXI) injection 0.25 mg - Cancel: dexAMETHasone (DECADRON) tablet 12 mg - prochlorperazine edisylate (COMPAZINE) injection 10 mg - Cancel: DOCEtaxeL (TAXOTERE) 140 mg in sodium chloride 0.9 % 250 mL chemo infusion - Cancel: cycloPHOSphamide (CYTOXAN) 1,100 mg in sodium chloride 0.9 % 105.5 mL chemo infusion - Cancel: sodium chloride 0.9% syringe 10 mL - alteplase (ACTIVASE) 1 mg in sterile water 2 mL injection - Cancel: heparin flush 100 unit/mL injection 500 Units - diphenhydrAMINE (BENADRYL) injection 50 mg - diphenhydrAMINE (BENADRYL) injection 25 mg - methylPREDNISolone sodium succinate (Solu-MEDROL) injection 125 mg - famotidine (PEPCID) injection 20 mg - albuterol (PROVENTIL HFA;VENTOLIN HFA) inhaler 1-2 Puff - 0.9 % NaCl infusion - EPINEPHrine injection 0.3 mg - racepinephrine (VAPONEFRIN) 2.25 % nebulizer solution 0.5 mL - sodium chloride 0.9 % nebulizer solution 3 mL - pegfilgrastim-apgf (NYVEPRIA) injection 6 mg Stage IIB-Invasive lobular carcinoma, 2 o'clock left breast, Grade 2, ER 76%, AR 24%, HER-2 0/negative, Ki67 13%, pT2, pN1a (sn), Oncotype DX recurrence score: Jul 2024 BRCA 2 -she has undergone [...] 28 days x 3 years Plan: Proceed adjuvant TC with G-CSF support Anticipated aromatase inhibitor/CDK 4 inhibitor adjuvantly after completion chemotherapy Does not qualify for PARP on her stage After today, 1 more dose of chemo Would like fluids scheduled later in the week (recall went to [facility] on 02/09.) Genetic assessment 06/29/24 Anni LEONARDO / CancerNext genetic test: Positive pathogenic mutation detected: BRCA2 (I need to see this report) Bone health 09/27/24 Bone density (BHP): Normal Hot flashes - better with tx Stated oxybutinin helps Smoking cessation -still working on quiting. Chronic pain -was on Percocet prior to cancer diagnosis for chronic pain -had prior discussion that we do not manage chronic pain but was almost out of pain medication -filled 01/13-01/31 percocet but Anne needs to get pain medication from one provider, scheduled pain visit on 03/[address] Neves in [place]? Dispo: Return for schedule next cycle and fluids lorena end of this week. Thank you for the opportunity to assist in the care of this patient, please feel free to contact meif I can be of any assistance. Vane Hollingsworth MD Hematology and Medical Oncology [facility] documented in this encounter Miscellaneous Notes * Addendum Note - Cecy Rutledge RN - 02/21/2025 9:00 AM EDTEncounter addended by: Cecy Rutledge RN on: 02/24/2025 3:04 PM Actions taken: Order list changed, Treatment plan modified documented in this encounter Plan of Treatment Upcoming Encounters Date Type Department Care Team (Late st Contact Info) Description 04/15/2025 8:45 AM EDT Appointment [facility] [place] [address] 04/15/2025 9:15 AM EDT [facility]ointment [facility] [place] [address] Vane Hollingsworth MD [address] [place] [phone] documented as of this encounter Visit Diagnoses Diagnosis Malignant neoplasm of overlapping sites of left breast in female, estrogen receptor positive (HCC)- Primary documented in this encounter Care Teams Retarder Operator Relationship Specialty Start Date End Date Rodriguez Lindo [address] [place] [phone] PCP - General Clinic/Center - [facility] 12/03/16 Vane Hollingsworth MD [address] [place], [place] [id number] Internal Medicine-Hematology and Oncology 02/21/25 Terri Tay, RN Registered Nurse Infusion Therapy 02/21/25 02/21/25 documented as of this encounter
--- OUTSIDE RECORDS SUMMARY | 2025-02-21 09:20 | XMS_ITS | Encounter Summary ---
Author Organization [place] [address] Care Team Providers Care Thermal Engineer Name Role Phone Rodriguez Lindo Primary Care Provider +1- [phone] Vane Hollingsworth MD Unavailable +1- [phone] Terri Tay RN Unavailable Unavailable Reason for Visit * Oncology Medication Prior Authorization (Routine) - Authorized Specialty Diagnoses / Procedures Referred By Contac t Referred To Contact Diagnoses Malignant neoplasm of overlapping sites of left breast in female, estrogen receptor positive (HCC) Procedures ONCOLOGY MEDICATION AUTHORIZATION Vane Hollingsworth MD [address] [place] [address] Phone: tel: fax: Vane Hollingsworth MD [address] [place] [address] Phone: tel: fax: Referral ID Status Reason Start Date Expiration Date V isits Requested Visits Authorized [id number] Authorized 01/21/2025 01/21/2026 1 6 Encounter Details Date Type Department Care Team (Latest Contact Info) Description 02/21/2025 9:20 AM EDT - 02/21/2025 11:59 PM EDT [facility] [place] [address] Malignant neoplasm of overlapping sites [...] infection DON'T WAIT, PLEASE CALL US FIRST [phone]. [FOR URGENT ISSUES PLEASE DO NOT LEAVE A MESSAGE, FOLLOW PROMPTS TO THE DOCTOR CORK PAINTER AND GRADER] For Gynecology / Oncology call : [phone] Our hours of operation are Friday - Friday 8:00 AM - 4:30 PM. [place] [address] 123 [phone] [place] [address] [place] [address] Results for orders placed or performed during [...] Gran% 0.2 % Lymph Percent 14.9 % Fountain Percent 18.3 % Eos Percent 0.0 % Baso Percent 0.9 % Neut # 3.7 1.6 - 6.1 x10(3)/mcL IMMGRAN# 0.0 0.0 - 0.1 x10(3)/mcL Lymph # 0.8 (L) 1.2 - 3.9 x10(3)/mcL Fountain # 1.0 (H) 0.3 - 0.9 x10(3)/mcL [...] AM EDT Appointment [place] [address] 04/15/2025 9:15 AM EDT [facility]ment [facility] [place], [place] [id number] Vane Hollingsworth MD [address] [place] [address] [id number] documented as of this encounter Visit Diagnoses [...] at 1000, Until Fri02/22/25 at 0411, For car head liner installer during chemotherapy infusion., Dx: 1. Malignant neoplasm [...] 2024 documented in this encounter Care Teams Thermal Engineer Relationship Specialty Start Date End Date Rodriguez Lindo [address] [place] [id number] PCP - General Clinic/Center - [facility] ([facility]) 12/03/16 Vane Hollingsworth MD [address] [place], [place] [id number] Internal Medicine-Hematology and Oncology 02/21/25 Terri Tay, RN Registered Nurse Infusion Therapy 02/21/25 02/21/25 documented as of this encounter
--- OUTSIDE RECORDS SUMMARY | 2025-02-22 13:14 | XMS_ITS | Encounter Summary ---
Author Organization [place] [address] Care Team Providers Care Youth Specialist Name Role Phone Rodriguez Lindo Primary Care Provider +1- [phone] Vane Hollingsworth MD Unavailable +1- [phone] Moriah Woods RN Unavailable Unavailabl e Reason for Visit * Oncology Medication Prior Authorization (Routine) - Authorized Specialty Diagnoses / Procedures Referred By Contac t Referred To Contact Diagnoses Malignant neoplasm of overlapping sites of left breast in female, estrogen receptor positive (HCC) Procedures ONCOLOGY MEDICATION AUTHORIZATION Vane Hollingsworth MD [address] [place] [address] Phone: tel: fax: Vane Hollingsworth MD [address] [place], [place] [phone] Phone: tel: fax: Referral ID Status Reason Start Date Expiration Date V isits Requested Visits Authorized [id number] Authorized 01/21/2025 01/21/2026 1 6 Encounter Details Date Type Department Care Team (Latest Contact Info) Description 02/22/2025 1:14 PM EDT - 02/22/2025 11:59 PM EDT Hospital En[place] [address] Malignant neoplasm of overlapping sites [...] Woods RN - 02/22/2025 1:30 PM EDT [facility] Discharge Instructions Thank you for entrusting the [facility] with your care. We hope you are [...] infection DON'T WAIT, PLEASE CALL US FIRST [phone]. [FOR URGENT ISSUES PLEASE DO NOT LEAVE A MESSAGE, FOLLOW PROMPTS TO THE DOCTOR SLATE CUTTER] For Gynecology / Oncology call : [phone] Our hours of operation are Friday - Friday 8:00 AM - 4:30 PM. [facility] [address] [place] [address] [phone] [place] [address] No results found for any visits on 02/22/25. documented in this encounter Plan of Treatment Upcoming Encounters Date Type Department Care Team (Late st Contact Info) Description 04/15/2025 8:45 AM EDT Appointment [facility] [place], [place] [id number] 04/15/2025 9:15 AM EDT [facility]ment [facility] [place] [address] Vane Hollingsworth MD [address] [place] [address] documented as of this encounter Visit Diagnoses [...] 02/22/2025 documented in this encounter Care Teams Youth Specialist Relationship Specialty Start Date End Date [facility] [address] [place] [phone] PCP - General Clinic/Center - [facility] ([facility]) 12/03/16 Vane Hollingsworth MD [address] [place] [address] Internal Medicine-Hematology and Oncology 02/21/25 Moriah Woods, RN Registered Nurse Infusion Therapy 02/22/25 02/22/25 documented as of this encounter
--- OUTSIDE RECORDS SUMMARY | 2025-02-27 22:52 | XMS_ITS | Encounter Summary ---
Demographics Address [address] [id number] Mobile Phone Email Address Preferred Language en Marital Status Rastafari Affiliation Unknown Race White Ethnic Group Not or Lati no Author Organization Healthcare Address [address] [place] [address] Care Team Providers Care Superintendent Drivers Name Role Phone Pcp, No Primary Care Provider Unavailabl e Reason for Visit * Reason Comments Generalized Body Aches Pt states that oralia myao is currently receiving chemo treatments, last treatment was 7 days ago and gets sever generalized body pain 3-4 days after the tx. Pt reports that she took Ibuprofen 800 mg at home at 2200 this evening with no relief. Encounter Details Date Type Department Care Team (Late st Contact Info) Description 02/27/2025 10:52 PM EDT - 02/28/2025 1:08 AM EDT Emergency [facility] Emergency Department [address] [place] [address] García Matias MD [address] [place] [address] Cancer associated pain (Primary Dx) Discharge Disposition: Home or Self Care Social History Tobacco Use Types Packs/Day Years Used Date Smoking Tobacco: Former Cigarettes S tarted: 1997 Smokeless Tobacco: Never Tobacco Cessation:Counseling Given: Not Answered Alcohol Use Standard Drinks/Week Comments Never 0 (1 standard drink = 0.6 oz pur e alcohol) AUDIT-C Answer Date Recorded Q1: How often do you have a drink containing alcohol? Never 02/27/2025 Q2: How many drinks containi ng alcohol do you have on a typical day when you are drinking? Patient does not drink Q3: How often do you have si x or more drinks on one occasion? Never 02/27/2025 Comments Unknown Sex and Gender Information Value Date Recorded Sex Assigned at Not on file Legal Sex Female 6:18 PM EDT Gender Identity Not on file Sexual Orientation Not on file documented as of this encounter Last Filed Vital Signs Vital Sign Reading Time Taken Comments Blood Pressure 114/54 02/28/2025 1:07 AM EDT Pulse 92 02/28/2025 1:07 AM EDT Temperature 36.8 C (98.2 F) 02/28/2025 1:07 AM EDT Respiratory Rate 18 02/28/2025 1:07 AM EDT Oxygen Saturation 97% 02/28/2025 1:07 AM EDT Inhaled Oxygen Concentration - - Weight 81.6 kg (179 lb 14.3 oz) 025 10:45 PM EDT Height 167.6 cm (5' 6 ) 02/27/2025 10:4 9 PM EDT Body Mass Index 29.04 02/27/2025 10:45 PM EDT documented in this encounter Functional Status * AUDIT-C Score Answer Date of Assessment Author 0 02/27/2025 10:48 PM EDT Dimitrios Silva RN * Question Answer Date of Assessment Author Q1: How often do you have a drink containing alcohol? Never 02/27/2025 10:48 PM EDT Nettie Silva RN Q2: How many drinks containing alcohol do you have on a typical day when you are drinking? Patient does not drink 02/27/2025 10:48 PM EDT Nettie Silva RN Q3: How often do you have six or more drinks on one occasion? Never 02/27/2025 10:48 PM EDT Nettie Silva RN * Calculated C-SSRS Risk Score (Lifetime/Recent) Answer Date of Assessment Author No Risk Indicated 02/27/2025 11:11 PM EDT Dia Love * Question Answer Date of Assessment Author 1. Wish to be (Past 1 Month) No 025 11:11 PM EDT Dia Pagan 2. Non-Specific Active Suici cyndie Thoughts (Past 1 Month) No 02/27/2025 11:11 PM EDT Jhonny Pagan 6. Suicidal Behavior (Lifetime) No 11:11 PM EDT Dia Pagan documented as of this encounter Discharge Instructions * Discharge Instructions* García Matias MD - 02/28/2025 12:52 AM EDT At this time we have given you medications for your pain. We will recommend continuing to follow upwith your primary doctor for long-term pain control. If your symptoms worsen your always welcome toreturn for repeat evaluation. We have sent a few days where the pain medications to the pharmacy documented in this encounter Medications at Time of Discharge oxyCODONE (Roxicodone) 5 MG immediate release tablet Take 1 tablet by mouth every 8 hours as needed (pain). 10 tablet 02/28/2025 documented as of this encounter Miscellaneous Notes * ED Notes - Dia Pagan - 02/28/2025 1:07 AM EDT IV line removed intact. IV site looked unremarkable. Pressure dressing applied. Discharge instructions reviewed with patient. Patient advised not to drive, drink alcohol, operate machinery or sign any legal paperwork after receiving pain medication here in the emergency department or while taking any pain medications at home. Patient verbalized understanding. Copy of discharge paperwork given to patient. Patient advised that prescriptions x 1 have been sent electronically to the pharmacy of their choice. Patient discharged to home in good condition per personal vehicle, family/friend driving.Patient ambulated out of the emergency department without any difficulty. Dia Pagan 02/28/25 0107 * ED Provider Notes - García Matias MD - 02/27/2025 10:37 PM EDT Images from the original note were not included. - HPI Chief Complaint Patient presents with Generalized Body Aches Pt states that she is currently receiving chemo treatments, last treatment was 7 days ago and gets sever generalized body pain 3-4 days after the tx. Pt reports that she took Ibuprofen 800 mg at homeat 2200 this evening with no relief. Anne Kearney is a 40 y.o. female with a pertinent PMH of malignant neoplasm of overlapping sites ofL breast (currently receiving chemotherapy), chronic pain, and emphysema (not requiring home O2) who presents to the ED via private vehicle with myalgias. Pt complains of diffuse pain throughout her muscles and joints secondary to a recent chemotherapy treatment. Pt states she has chronic pain at baseline (currently follows with pain management) and typically has increased pain for a couple of days following chemotherapy treatments. Pt presents tonight requesting pain management due to diffuse uncontrollable pain which has remained constant since her last chemotherapy treatment on 02/21. Of note, pt has previously been evaluated in the ED for similar complaints of diffuse pain related to her cancer and pt claims IV fluids and dilaudid have provided pain relief in the past. 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 Pt denies fever, chills, N/V/D, abdominal pain, urinary symptoms, headache, chest pain, SOA. History provided by: Patient ssas developer used: No Patient History Past Medical History[1] Surgical History[2] Family History[3] Social History[4] Allergies: Allergies[5] Physical Exam ED Triage Vitals [02/27/25 2249] Temp Heart Rate Resp BP 36.8 ??C (98.2 ??F) 100 18 114/51 SpO2 Temp Source Heart Rate Source Patient Position 96 % Oral -- Sitting BP Location FiO2 (%) Right arm -- Physical Exam Vitals and nursing note reviewed. Constitutional: General: She is not in acute distress. Appearance: She is well-developed. HENT: Head: Normocephalic and atraumatic. Eyes: Conjunctiva/sclera: Conjunctivae normal. Cardiovascular: Rate and Rhythm: Normal rate and regular rhythm. Heart sounds: No murmur heard. Pulmonary: Effort: Pulmonary effort is normal. No respiratory distress. Breath sounds: Normal breath sounds. Abdominal: Palpations: Abdomen is soft. Tenderness: There is no abdominal tenderness. Musculoskeletal: General: No swelling. Cervical back: Neck supple. Skin: General: Skin is warm and dry. Capillary Refill: Capillary refill takes less than 2 seconds. Neurological: General: No focal deficit present. Mental Status: She is alert. Psychiatric: Mood and Affect: Mood normal. Sonny Coma Scale Score: 15 ED Course & MDM Clinical Impressions as of 02/28/25 0102 Cancer associated pain Anne Kearney is a 40 yrs old female presents today for Chief Complaint Patient presents with Generalized Body Aches Pt states that she is currently receiving chemo treatments, last treatment was 7 days ago and gets sever generalized body pain 3-4 days after the tx. Pt reports that she took Ibuprofen 800 mg at homeat 2200 this evening with no relief. . Additional history was provided by family Summary of ED Care: Patient is a 40-year-old female who presents today with myalgias and arthralgias which she states she believes are related to chemotherapy infusions. States that she has already in pain management but states that when pain is the severe after chemo sessions her symptoms acutely w orsen and she needs to come in for acute pain control. In the past symptoms have been controlled with Dilaudid. Patient also states that fluids help with symptoms. She was given 2 doses of Dilaudid and a L of fluids and feels significantly improved. Patient is already prescribed oxycodone for home use but states that she is out so we elected to give 10 pills until she has follow-up coming up in 3days. No chest pain, no abdominal pain or other severe symptoms were noted during her visit. Labs did not suggest any signs of neutropenia. Additional MDM Differential Diagnoses: Based on her history and physical exam, my differential diagnosis included myalgias, rhabdomyolysisless likely. Ruling out the most morbid conditions drove my clinical assessment. In order to fully explore differential these tests were ordered. All Other Orders Ordered Status Ordering Provider 02/27/25 2358 Manual Differential Once Final result GARCÍA MATIAS 02/27/25 2358 Morphology Once Final result GARCÍA MATIAS 02/27/25 2314 CBC w/diff STAT Final result GARCÍA MATIAS 02/27/25 231 CMP STAT Final result GARCÍA MATIAS 02/27/25 231 Magnesium STAT Final result GARCÍA MATIAS 02/27/25 2314 hCG qualitative STAT Final result GARCÍA MATIAS Prior Records Review: External Records for this patient including The PDMP from February 28 2025 from [facility] were reviewed and found to be pertinent. Records review indicates that patient most recently prescribed 76 pills of oxycodone on February 13. It should be noted that her chronic conditions includes breast cancer, which currently is not at goal therapy. This complicates her clinical picture because it may be exacerbating symptoms. Independent Results Review: I saw and interpreted all lab results on labs ordered on the patient. Specific comments on various labs can be found in ED course. Any labs noted in the ED course without specific explanation can be assumed to be pertinent normal results. Prescription Medication Management in ED and Reassessment: ED Medication Administration from 02/27/2025 2237 to 02/28/2025 0102 Date/Time Order Dose Route Action 02/27/20252332 EDT ondansetron (Zofran) injection 4 mg 4 mg Intravenous Given 02/27/20252334 EDT sodium chloride 0.9 % infusion 1,000 mL 1,000 mL Intravenous New Bag 02/27/20256 EDT HYDROmorphone (Dilaudid) injection 1 mg 1 mg Intravenous Given 02/28/2025 0023 EDT HYDROmorphone (Dilaudid) injection 1 mg 1 mg Intravenous Given Patient reevaluated after treatments listed above provided and condition improved with medications given. I discussed with the patient/family the value of prescribing Narcotic Prescription pain medicationsand we, through shared decision making, decided that these medications would benefit the patient based on todays illness. Consults and Discussions with other providers: Disposition: Ultimately, this patient Was discharged Home (Discharge) The encounter diagnosis was Cancer associated pain. . Patient was counseled on the diagnoses. Discharge medications if any are listed below. Listed medications are thought be either curative for listed diagnoses or will help control ongoing symptoms. Patient is requested to follow up with Patient's primary care provider and pain management in order to obtain routine follow-up and specialty care. Instructions on follow up as well as precautions to return to the ER provided verbally by the EDMD, as well as written in patients discharge education packet. Specific instructions provided are as follows: Discharge Instructions At this time we have given you medications for your pain. We will recommend continuing to follow upwith your primary doctor for long-term pain control. If your symptoms worsen your always welcome toreturn for repeat evaluation. We have sent a few days where the pain medications to the pharmacy Disposition Discharge AVS (Puerto [place]ican Snapshot) - Printed 02/28/2025 ED Prescriptions Medication Sig Dispense Start Date End Date Auth. Provider oxyCODONE (Roxicodone) 5 MG immediate release tablet Take 1 tablet by mouth every 8 hours as needed(pain). 10 tablet 02/28/2025 -- García Matias MD Date/Time: 02/27/2025/11:39 PM Entered by Eli Blunt, acting as scribe for García Hurley MD. Scribe Attestation: This note was dictated to me, Eli Blunt, acting as a scribe for García Hurley MD. Attending Attestation: The documentation was recorded by Eli Blunt acting as scribe in my presence at the time of the encounter and accurately reflects the service I personally performed. García Matias MD 02/28/25 0056 [1] Past Medical History: Diagnosis Date Breast cancer [2] History reviewed. No pertinent surgical history. [3] No family history on file. [4] Tobacco Use Smoking status: Former Types: Cigarettes Start date: 1997 Smokeless tobacco: Never Vaping Use Vaping status: Never Used Substance Use Topics Alcohol use: Never Drug use: Not Currently Types: Methamphetamines [5] Allergies Allergen Reactions Hydrocodone Itching Ketorolac Itching, Unknown - Patient states they do not know rxn details and Rash unknown Tramadol Itching and Rash García Matias MD 02/28/25 0102 * ED Triage Notes - Nettie Silva RN - 02/27/2025 10:37 PM EDT To ED via POV with family c/o generalized pain progressively worsening. 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 Chemo last Friday-performed in [place], [place] (states she has a couple of txs remaining prior to relocating, continuity) Hx: Breast Cx (previous radiation), emphysema (no O2 requirement at home) documented in this encounter Plan of Treatment Not on file documented as of this encounter Procedures Procedure Name Priority Date/Time Associated Diagnosis Comments MORPHOLOGY STAT 02/27/2025 11:23 PM EDT MANUAL DIFFERENTIAL STAT 02/27/2025 1 1:23 PM EDT CBC WITH AUTO DIFFERENTIAL STAT 02/27/2025 11:23 PM EDT TEST QUALITATIVE PLASMA STAT 02/27/2025 11:23 PM EDT MAGNESIUM, PLASMA STAT 02/27/2025 11: 23 PM EDT COMPREHENSIVE METABOLIC PANEL, PLASMA STAT 02/27/2025 11:23 PM EDT documented in this encounter Results * Morphology (02/27/2025 11:23 PM EDT) RBC Morphology RBC Morphology Consistent with Indices and RDW LAB HEMATOLOGY METHOD 02/27/2025 11:58 PM EDT [facility] Platelet Estimate Platelet smear estimate consistent with automated count LAB HEMATOLOGY METHOD 02/27/2025 11:58 PM EDT [facility] Blood Venous blood specimen / Unknown Venipuncture / Unknown 02/27/2025 11:23 PM EDT 02/27/2025 11:25 PM EDT us García Matias MD LAB BLOOD ORDERABLES Final Result [facility] [address] [place] [id number] * (ABNORMAL) Manual Differential (02/27/2025 11:23 PM EDT) Blasts % 0 % LAB HEMATOLOGY METHOD 02/27/2025 11:58 PM EDT [facility] Promyelocytes % 0 % LAB HEMATOLOGY METHOD 02/27/2025 11:58 PM EDT [facility] Myelocytes % 4 % LAB HEMATOLOGY METHOD 02/27/2025 11:58 PM EDT [facility] Metamyelocytes % 3 % LAB HEMATOLOGY METHOD 02/27/2025 11:58 PM EDT [facility] Neutrophils % 43 % LAB HEMATOLOGY METHOD 02/27/2025 11:58 PM EDT [facility] Lymphocytes % 20 % LAB HEMATOLOGY METHOD 02/27/2025 11:58 PM EDT [facility] Reactive Lymphocytes % 0 % LAB HEMATOLOGY METHOD 02/27/2025 11:58 PM EDT [facility] Monocytes % 30 % LAB HEMATOLOGY METHOD 02/27/2025 11:58 PM EDT [facility] Eosinophils % 0 % LAB HEMATOLOGY METHOD 02/27/2025 11:58 PM EDT [facility] Basophils % 0 % LAB HEMATOLOGY METHOD 02/27/2025 11:58 PM EDT [facility] Blasts Absolute 0.00 10*3/UL LAB HEMATOLOGY METHOD 02/27/2025 11:58 PM EDT [facility] Promyelocytes Absolute 0.00 10*3/uL LAB HEMATOLOGY METHOD 02/27/2025 11:58 PM EDT [facility] Myelocytes Absolute 0.29 10*3/uL LAB HEMATOLOGY METHOD 02/27/2025 11:58 PM EDT [facility] Metamyelocytes Absolute 0.22 10*3/uL LAB HEMATOLOGY METHOD 02/27/2025 11:58 PM EDT [facility] Neutrophils Absolute 3.14 1.60 - 6.10 10*3/uL LAB HEMATOLOGY METHOD 02/27/2025 11:58 PM EDT [facility] Lymphocytes Absolute 1.46 1.20 - 3.90 10*3/uL LAB HEMATOLOGY METHOD 02/27/2025 11:58 PM EDT [facility] Reactive Lymphocytes Absolute 0.00 10*3/uL LAB HEMATOLOGY METHOD 02/27/2025 11:58 PM EDT [facility] Monocytes Absolute 2.19(H) 0.30 - 0.90 10*3/uL LAB HEMATOLOGY METHOD 02/27/2025 11:58 PM EDT [facility] Eosinophils Absolute 0.00 0.00 - 0.50 10*3/uL LAB HEMATOLOGY METHOD 02/27/2025 11:58 PM EDT [facility] Basophils Absolute 0.00 0.00 - 0.10 10*3/uL LAB HEMATOLOGY METHOD 02/27/2025 11:58 PM EDT [facility] Blood Venous blood specimen / Unknown Venipuncture / Unknown 02/27/2025 11:23 PM EDT 02/27/2025 11:25 PM EDT García Matias MD LAB BLOOD ORDERABLES Final Result Performing Organization Address City/[facility]/ZIP Co de Phone Number [facility] [address] [place] [address] * hCG qualitative (02/27/2025 11:23 PM EDT) Test Negative Negative 02/27/2025 11:47 PM EDT [facility] Blood Venous blood specimen / Unknown Venipuncture / Unknown 02/27/2025 11:23 PM EDT 02/27/2025 11:25 PM EDT Narrative [facility] - 02/27/2025 11:47 PM EDT Reference Range: Males and non- females: Negative. García Matias MD LAB BLOOD ORDERABLES Final Result Performing Organization Address City/[facility]/ZIP Co de Phone Number [facility] [address] [place] [address] * Magnesium (02/27/2025 11:23 PM EDT) Magnesium, Plasma 2.2 1.9 - 2.4 mg/dL 02/27/2025 11:47 PM EDT [facility] Blood Venous blood specimen / Unknown Venipuncture / Unknown 02/27/2025 11:23 PM EDT 02/27/2025 11:25 PM EDT García Matias MD LAB BLOOD ORDERABLES Final Result Performing Organization Address City/[facility]/ZIP Co de Phone Number [facility] [address] [place] [address] * (ABNORMAL) CMP (02/27/2025 11:23 PM EDT) Glucose, Plasma 110(H) 74 - 99 mg/dL 02/27/2025 11:47 PM EDT [facility] BUN, Plasma 11 7 - 21 mg/dL 02/27/2025 11:47 PM EDT [facility] Creatinine, Plasma 0.80 0.60 - 1.10 mg/dL 02/27/2025 11:47 PM EDT [facility] BUN/Creatinine Ratio 14 02/27/2025 11:47 PM EDT [facility] Sodium, Plasma 142 136 - 145 mmol/L 02/27/2025 11:47 PM EDT [facility] Potassium, Plasma 4.5 3.6 - 4.9 mmol/L 02/27/2025 11:47 PM EDT [facility] Chloride, Plasma 105 97 - 107 mmol/L 02/27/2025 11:47 PM EDT [facility] CO2, Plasma 26 22 - 29 mmol/L 02/27/2025 11:47 PM EDT [facility] Anion Gap 11 6 - 16 mmol/L 02/27/2025 11:47 PM EDT [facility] Total Calcium, Plasma 9.3 8.9 - 10.2 mg/dL 02/27/2025 11:47 PM EDT [facility] Total Protein 6.1(L) 6.3 - 7.9 g/dL 02/27/2025 11:47 PM EDT [facility] Albumin, Plasma 3.9 3.5 - 5.2 g/dL 02/27/2025 11:47 PM EDT [facility] AST, Plasma 29 10 - 35 U/L 02/27/2025 11:47 PM EDT [facility] ALT, Plasma 27 10 - 35 U/L 02/27/2025 11:47 PM EDT [facility] Alkaline Phosphatase, Plasma 132(H) 35 - 104 U/L 02/27/2025 11:47 PM EDT [facility] Total Bilirubin, Plasma <0.2(L) 0.2 - 1.1 mg/dL 02/27/2025 11:47 PM EDT [facility] eGFRcr 95.1 mL/min/1.7 3m*2 02/27/2025 11:47 PM EDT [facility] Comment:Reported eGFRcr in m L/min/1.73m2 is based the CKD-EPI 2020 equation that does not use a race coefficient. Blood Venous blood specimen / Unknown Venipuncture / Unknown 02/27/2025 11:23 PM EDT 02/27/2025 11:25 PM EDT us García Matias MD LAB BLOOD ORDERABLES Final Result [facility] [address] [place] [address] * (ABNORMAL) CBC w/diff (02/27/2025 11:23 PM EDT) WBC Count 7.30 3.70 - 10.30 10*3/uL LAB HEMATOLOGY METHOD 02/27/2025 11:58 PM EDT [facility] RBC Count 3.21(L) 3.90 - 5.20 10*6/uL LAB HEMATOLOGY METHOD 02/27/2025 11:58 PM EDT [facility] HGB 9.9(L) 11.2 - 15.7 g/dL LAB HEMATOLOGY METHOD 02/27/2025 11:58 PM EDT [facility] HCT 29.9(L) 34.0 - 45.0 % LAB HEMATOLOGY METHOD 02/27/2025 11:58 PM EDT [facility] Platelet Count 230 155 - 369 10*3/uL LAB HEMATOLOGY METHOD 02/27/2025 11:58 PM EDT [facility] MCV 93 79 - 98 fL LAB HEMATOLOGY METHOD 02/27/2025 11:58 PM EDT [facility] MCH 30.8 26.0 - 32.0 pg LAB HEMATOLOGY METHOD 02/27/2025 11:58 PM EDT [facility] MCHC 33.1 30.7 - 35.5 g/dL LAB HEMATOLOGY METHOD 02/27/2025 11:58 PM EDT [facility] RDW 15.3(H) 11.5 - 14.5 % LAB HEMATOLOGY METHOD 02/27/2025 11:58 PM EDT [facility] MPV 10.4 8.8 - 12.5 fL LAB HEMATOLOGY METHOD 02/27/2025 11:58 PM EDT [facility] nRBC 1.9(H) <=0.0 per 100 WBCs LAB HEMATOLOGY METHOD 02/27/2025 11:58 PM EDT [facility] Differential Type Manual LAB HEMATOLOGY METHOD 02/27/2025 11:58 PM EDT [facility] Blood Venous blood specimen / Unknown Venipuncture / Unknown 02/27/2025 11:23 PM EDT 02/27/2025 11:25 PM EDT Narrative [facility] - 02/27/2025 11:58 PM EDT Therapeutic decision making should be based on absolute values, rather than percentages. us García Matias MD LAB BLOOD ORDERABLES Final Result [facility] [address] [place] [id number] documented in this encounter Visit Diagnoses Diagnosis Cancer associated pain- Primary Neoplasm related pain (acute) (chronic) documented in this encounter Administered Medications Inactive Administered Medications - up to 3 most recent administrations Medication Order MAR Action Action Date Dose Rate Site HYDROmorphone (Dilaudid) injection 1 mg 1 mg, Intravenous, Once, 1 dose, On 02/27/25 at 2315, Routine Given 02/27/2025 11:36 PM EDT 1 mg HYDROmorphone (Dilaudid) injection 1 mg 1 mg, Intravenous, Once, 1 dose, On 02/28/25 at 0015, Routine Given 02/28/2025 12:23 AM EDT 1 mg ondansetron (Zofran) injection 4 mg 4 mg, Intravenous, Once, 1 dose, On 02/27/25 at 2325, STAT Given 02/27/2025 11:33 PM EDT 4 mg sodium chloride 0.9 % infusion 1,000 mL 1,000 mL, Intravenous, Once, 1 dose, On 02/27/25 at 2315, STAT New Bag 02/27/2025 11:35 PM EDT 1,000 mL documented in this encounter Active and Recently Administered Medications Times are shown in EDT. Scheduled Medication Order 02/26/2025 02/27/2025 02/28/2025 HYDROmorphone (Dilaudid) injection 1 mg (COMPLETED) 1 mg, Intravenous, Once, 1 dose, On 02/27/25 at 2315, Routine 2336 (Given - Provider: Dia Pagan) HYDROmorphone (Dilaudid) injection 1 mg (COMPLETED) 1 mg, Intravenous, Once, 1 dose, On 02/28/25 at 0015, Routine 0023 (Given - Provid er: Dia Pagan) ondansetron (Zofran) injection 4 mg (COMPLETED) 4 mg, Intravenous, Once, 1 dose, On 02/27/25 at 2325, STAT 2333 (Given - Provider: Dia Pagan) sodium chloride 0.9 % infusion 1,000 mL (COMPLETED) 1,000 mL, Intravenous, Once, 1 dose, On 02/27/25 at 2315, STAT 2335 (New Bag - Provider: Dia Pagan) 0106 (Stopped - Provider: Dia Pagan) documented in this encounter Care Teams Superintendent Drivers Relationship Specialty Start Date End Date Pcp, No [address] [place] [address] PCP - General Family Medicine 02/07/25 documented as of this encounter
--- OUTSIDE RECORDS SUMMARY | 2025-03-02 14:30 | XMS_ITS | Encounter Summary ---
[facility] Organization [facility] Address [address] [place] [address] Care Team Providers Care Tariff Counsel Name Role Phone Juan Luis Garza MD Primary Care Provider [phone] Reason for Referral * Pain Management (Routine) - Authorized Specialty Diagnoses / Procedures Referred By Raman jesus Referred To Contact Pain Medicine Diagnoses Bilateral hip pain Chronic bilateral thoracic back pain Neck pain Procedures RI OFFICE/OUTPATIENT NEW MODERATE MDM 45 MINUTES Juan Luis Garza MD [address] [place] [address] Phone: tel: fax: [facility] [place] [address] Phone: tel: fax: Referral ID Status Reason Start Date Expiration Date Visits Requested Visits Authorized [id number] Authorized Specialty Services Required 03/02/2025 06/01/2026 1 1 * Consultation (Routine) - Authorized Specialty Diagnoses / Procedures Referred By Raman jesus Referred To Contact Oncology Diagnoses Malignant neoplasm of left breast in female, estrogen receptor positive, unspecified site of breast Procedures RI OFFICE/OUTPATIENT NEW MODERATE MDM 45 MINUTES Juan Luis Garza MD [address] [place] [address] Phone: tel: fax: [facility] HEMATOLOG[facility] & ONCOLOGY [address] [facility] [address] [place] [address] Phone: tel: fax: Referral ID Status Reason Start Date Expiration Date V isits Requested Visits Authorized [id number] Authorized 03/02/2025 06/01/2026 2 2 Reason for Visit * Reason Comments Establish Care Encounter Details Date Type Department Care Team (Late st Contact Info) Description 03/02/2025 2:30 PM EDT Office Visit [facility] [address] [facility] [address] [place] [phone] Juan Luis Garza MD 10[address] [facility] [address] [place], [place] [id number] Malignant neoplasm of left breast in female, [...] or training? Not on file Preferred Language Azerbaijani 09/27/2024 PHQ-2 Answer Date Recorded Patient Health [...] establish care with an oncologist here in [place] with [facility] once chemotherapy has been completed for further follow-up. Referral was placed today. * Juan Luis Garza MD - 03/04/2025 4:39 PM EDTAssociated Problem(s): Insomnia Kaaawa that the trazodone 100 mg was making [...] establish care. Chief Complaint Patient presents with [facility] HPI She moved here from [facility] and needs to establish care. She has one more round of chemo for breast cancer but will need an oncologist here in [facility]. She was initially being seen in [place] but then moved up here. She struggles with chronic bilateral hip pain, neck pain, and low back pain and has been following with pain management in [place] and needs a provider here in [facility]. She also has some pain thought to [...] WITH ANESTHESIA; Surgeon: Tamera Smith MD; Location: [facility] ENDOSCOPY; Service: Gastroenterology; Laterality: N/A; preop; change in bowel habits postop; normal PCP Neil Puri ENDOSCOPY N/A 12/27/2021 Procedure: ESOPHAGOGASTRODUODENOSCOPY WITH ANESTHESIA; Surgeon: Tamera Smith MD; Location: [facility] ENDOSCOPY; Service: Gastroenterology; Laterality: N/A; preop; change in bowel habits postop; normal PCP Neil Puri LYMPH NODE BIOPSY 2023 MASTECTOMY W/ SENTINEL NODE BIOPSY Bilateral 07/29/2024 Procedure: Bilateral Mastectomy with Left Axillary Magtrace Guided [place] Lymph Node Biopsy; Surgeon: Giovanna Tolentino MD; Location: [facility] OR; Service: General; Laterality: Bilateral; TOTAL LAPAROSCOPIC HYSTERECTOMY SALPINGO OOPHORECTOMY N/A 10/01/2024 Procedure: TOTAL LAPAROSCOPIC HYSTERECTOMY BILATERAL SALPINGOOPHORECTOMY WITH DAVINCI ROBOT; Surgeon: Ministerio Gamino MD; Location: [facility] OR; Service: Robotics - DaVinci; Laterality: N/A; TUBAL ABDOMINAL LIGATION Bilateral 2004 VENOUS ACCESS DEVICE (PORT) INSERTION N/A 10/27/2024 Procedure: Single Lumen Port-a-cath insertion with flouroscopy; Surgeon: Giovanna Tolentino MD; Location: [facility] OR; Service: General; Laterality: N/A; Family History [...] 12/20/24 Respiratory Panel PCR w/COVID-19(SARS-CoV-2) STEFANI/JESSICA/ROGELIO/PAD/COR/KIMMY In-House, INS[employer]OR REPA[employer] SANDSTONE Swab in UTM/VTM, 2 HR TAT - [...] establish care with an oncologist here in [place] with [facility] once chemotherapy has been completed for [...] to establish with a provider here in [facility] to take over writing herPercocet. Patient will [...] promethazine (PHENERGAN) 12.5 MG tablet Sleep Insomnia Kaaawa that the trazodone 100 mg was making [...] ICD-9-CM: 723.1 Pelvic pain ICD-10-CM: R10.2 ICD-9-CM: BNT7404 Depression with anxiety ICD-10-CM: F41.8 ICD-9-CM: 300.4 [...] Description 06/06/2025 10:30 AM EDT Office Visit [facility] [address] [place] [phone] Juan Luis Garza MD [address] [place] [phone] Scheduled Referrals Name Type Priority Associated Diagnoses [...] type documented in this encounter Care Teams Tariff Counsel Relationship Specialty Start Date End Date Juan Luis Garza MD [address] [place] [phone] PCP - General Family Medicine 03/02/25 documented as of this encounter
--- OUTSIDE RECORDS SUMMARY | 2025-03-04 09:58 | XMS_ITS | Encounter Summary ---
[facility] Address [address] [place] [address] Care Team Providers Care Research Hydraulic Engineer Name Role Phone Juan Luis Garza MD Primary Care Provider [phone] Encounter Details Date Type Department Care Team (Late st Contact Info) Description 03/04/2025 8:58 AM CDT Hospital Encounter [facility] RAD ONC [address] [place] [phone] Social History Tobacco Use Types Packs/Day [...] or training? Not on file Preferred Language Urdu 09/27/2024 PHQ-2 Answer Date Recorded Patient Health [...] Description 06/06/2025 10:30 AM EDT Office Visit [facility] MEDICINE [address] [phone] Juan Luis Garza MD [address] [address] documented as of this encounter Visit Diagnoses Not on filedocumented in this encounter Care Teams Research Hydraulic Engineer Relationship Specialty Start Date End Date Juan Luis Garza MD [address] [phone] PCP - General Family Medicine 03/02/25 documented as of this encounter
--- OUTSIDE RECORDS SUMMARY | 2025-03-16 08:12 | XMS_ITS | Encounter Summary ---
Author Organization [place] [address] Care Team Providers Care Hostess Host Name Role Phone Rodriguez Lindo Primary Care Provider +1- [phone] Vane Hollingsworth MD Unavailable +1- [phone] Giovanna Joseph RN Unavailable Unavailable Encounter Details Date Type Department Care Team (Latest Contact Info) Description 03/16/2025 8:12 AM EDT Hospital Encounter [place] [address] Malignant neoplasm of overlapping sites [...] 3 hours as needed. 450 mL 03/21/2025 ondansetron (ZOFRAN) 4 mg Oral TabletIndications:Ma lignant [...] AM EDT Appointment [place] [address] 04/15/2025 9:15 AM EDT [facility]ment [facility] [place] [address] Vane Hollingsworth MD [address] [place] [phone] documented as of this encounter Procedures Procedure [...] - 145 mmol/L 03/16/2025 8:44 AM EDT [facility] Potassium 3.6 3.5 - 5.0 mmol/L 03/16/2025 8:44 AM EDT [facility] Chloride 109(H) 98 - 107 mmol/L 03/16/2025 8:44 AM EDT [facility] Total CO2 23 22 - 29 mmol/L 03/16/2025 8:44 AM EDT [facility] Anion Gap 12 7 - 16 mmol/L 03/16/2025 8:44 AM EDT [facility] Calcium 9.5 8.6 - 10.4 mg/dL 03/16/2025 8:44 AM EDT [facility] Glucose Lvl 83 70 - 99 mg/dL 03/16/2025 8:44 AM EDT [facility] BUN 20 6 - 20 mg/dL 03/16/2025 8:44 AM EDT [facility] Creatinine 0.73 0.51 - 1.30 mg/dL 03/16/2025 8:44 AM EDT [facility] Albumin 3.9 3.5 - 5.2 gm/dL 03/16/2025 8:44 AM EDT [facility] Total Protein 6.3(L) 6.4 - 8.3 gm/dL 03/16/2025 8:44 AM EDT [facility] Bili Total 0.2 0.2 - 1.3 mg/dL 03/16/2025 8:44 AM EDT [facility] ALT 12 <=41 U/L 03/16/2025 8:44 AM EDT [facility] AST 16 <=40 U/L 03/16/2025 8:44 AM EDT [facility] Alk Phos 81 36 - 123 U/L 03/16/2025 8:44 AM EDT [facility] eGFR (CKD-EPIcr 2020) 105 >=60 mL/min/1.7 3 m2 03/16/2025 8:44 AM EDT [facility] Comment:Estimated GFR was ca lculated using the CKD-EPIcr (2020) equation refit without race. The equation is recommended by the National Kidney Foundation - [place] [employer] of Nephrology Task Force. Blood VENOUS STRUCTURE / Unknown Medicare Port / Unknown 03/16/2025 8:20 AM EDT 03/16/2025 8:20 AM EDT us Vane Hollingsworth MD CHEMISTRY ORDERABLES Final Result [facility] [address] [place] [id number] * (ABNORMAL) CBC WITH DIFF (03/16/2025 8:20 AM EDT) WBC 10.6(H) 3.7 - 10.3 x10(3)/mc L 03/16/2025 8:27 AM EDT [facility] RBC 2.96(L) 3.90 - 5.20 x10(6)/mc L 03/16/2025 8:27 AM EDT [facility] Hgb 9.3(L) 11.2 - 15.7 g/dL 03/16/2025 8:27 AM EDT [facility] Hct 28.6(L) 34.0 - 45.0 % 03/16/2025 8:27 AM EDT [facility] MCV 96.6 80.0 - 100.0 fL 03/16/2025 8:27 AM EDT [facility] MCH 31.4 26.0 - 34.0 pg 03/16/2025 8:27 AM EDT [facility] MCHC 32.5 30.7 - 35.5 g/dL 03/16/2025 8:27 AM EDT [facility] RDW 16.8(H) <=14.9 % 03/16/2025 8:27 AM EDT [facility] Platelet 300 155 - 369 x10(3)/mc L 03/16/2025 8:27 AM EDT [facility] MPV 9.2 8.8 - 12.5 fL 03/16/2025 8:27 AM EDT [facility] Neut # Prelim 7.4(H) 1.6 - 6.1 x10(3)/mc L 03/16/2025 8:27 AM EDT [facility] Comment:Preliminary automate d absolute neutrophil count. Value may change if manual differential is indicated. Neut Percent 69.5 % 03/16/2025 8:27 AM EDT [facility] Comment:Neutrophils equals s egs plus bands Imm Gran% 0.2 % 03/16/2025 8:27 AM EDT [facility] Comment:Automated count of m etamyelocytes, myelocytes and promyelocytes. Lymph Percent 14.1 % 03/16/2025 8:27 AM EDT [facility] Moody Percent 15.6 % 03/16/2025 8:27 AM EDT [facility] Eos Percent 0.2 % 03/16/2025 8:27 AM EDT [facility] Baso Percent 0.4 % 03/16/2025 8:27 AM EDT [facility] Neut # 7.4(H) 1.6 - 6.1 x10(3)/mc L 03/16/2025 8:27 AM EDT [facility] Comment:Neutrophils equals s egs plus bands IMMGRAN# 0.0 0.0 - 0.1 x10(3)/mc L 03/16/2025 8:27 AM EDT [facility] Comment:Automated count of m etamyelocytes, myelocytes and promyelocytes. An absolute IG <0.1 is reported as 0.0. Lymph # 1.5 1.2 - 3.9 x10(3)/mc L 03/16/2025 8:27 AM EDT [facility] Moody # 1.7(H) 0.3 - 0.9 x10(3)/mc L 03/16/2025 8:27 AM EDT [facility] Eos# 0.0 0.0 - 0.5 x10(3)/mc L 03/16/2025 8:27 AM EDT [facility] Baso # 0.0 0.0 - 0.1 x10(3)/mc L 03/16/2025 8:27 AM EDT [facility] Blood VENOUS STRUCTURE / Unknown Medicare Port / Unknown 03/16/2025 8:20 AM EDT 03/16/2025 8:20 AM EDT us Vane Hollingsworth MD HEMATOLOGY ORDERABLE S Final Result [facility] [address] [place] [address] documented in this encounter Visit Diagnoses Diagnosis [...] 03/16/2025 documented in this encounter Care Teams Hostess Host Relationship Specialty Start Date End Date [facility] [address] [place] [phone] PCP - General Clinic/Center - [facility] ([facility]) 12/03/16 Vane Hollingsworth MD [address] [place] [address] Internal Medicine-Hematology and Oncology 02/21/25 Giovanna Joseph, RN Registered Nurse Infusion Therapy 03/16/25 03/16/25 documented as of this encounter
--- OUTSIDE RECORDS SUMMARY | 2025-03-16 08:13 | XMS_ITS | Encounter Summary ---
Author [place] [address] Care Team Providers Care Automatic Cigar Wrapper Tender Name Role Phone Rodriguez Lindo Primary Care Provider +1- [phone] Vane Hollingsworth MD Unavailable +1- [phone] Giovanna Joseph RN Unavailable Unavailable Reason for Visit * Oncology Medication Prior Authorization (Routine) - Authorized Specialty Diagnoses / Procedures Referred By Contac t Referred To Contact Diagnoses Malignant neoplasm of overlapping sites of left breast in female, estrogen receptor positive (HCC) Procedures ONCOLOGY MEDICATION AUTHORIZATION Vane Hollingsworth MD [address] [place] [address] Phone: tel: fax: Vane Hollingsworth MD [address] [place] [address] Phone: tel: fax: Referral ID Status Reason Start Date Expiration Date V isits Requested Visits Authorized [id number] Authorized 01/21/2025 01/21/2026 1 6 Encounter Details Date Type Department Care Team (Latest Contact Info) Description 03/16/2025 8:13 AM EDT - 03/16/2025 8:21 AM EDT Hospital Encounter [facility] [place] [address] Malignant neoplasm of overlapping sites [...] Joseph RN - 03/16/2025 9:00 AM EDT [facility] Discharge Instructions Thank you [...] infection DON'T WAIT, PLEASE CALL US FIRST [phone]. [FOR URGENT ISSUES PLEASE DO NOT LEAVE A MESSAGE, FOLLOW PROMPTS TO THE DOCTOR CHIEF YEOMAN] For Gynecology / Oncology call : [phone] Our hours of operation are Friday - Friday 8:00 AM - 4:30 PM. [facility] [address] [place] [address] 026 [phone] [address] Results for orders placed or performed during [...] Gran% 0.2 % Lymph Percent 14.1 % [place] Percent 15.6 % Eos Percent 0.2 % Baso Percent 0.4 % Neut # 7.4 (H) 1.6 - 6.1 x10(3)/mcL IMMGRAN# 0.0 0.0 - 0.1 x10(3)/mcL Lymph # 1.5 1.2 - 3.9 x10(3)/mcL Millard # 1.7 (H) 0.3 - 0.9 x10(3)/mcL [...] AM EDT Appointment [facility] [place], [place] [id number] 04/15/2025 9:15 AM EDT [facility]ment [facility] [place], [place] [id number] Vane Hollingsworth MD [address] [place] [address] [id number] documented as of this encounter Visit Diagnoses [...] at 0930, Until Fri03/17/25 at 0410, For lifeline representatives during chemotherapy infusion., Dx: 1. Malignant neoplasm [...] mL documented in this encounter Care Teams Automatic Cigar Wrapper Tender Relationship Specialty Start Date End Date [facility] [address] [place] [phone] PCP - General Clinic/Center - [facility] ([facility]) 12/03/16 Vane Hollingsworth MD [address] [place] [address] Internal Medicine-Hematology and Oncology 02/21/25 Giovanna Joseph, RN Registered Nurse Infusion Therapy 03/16/25 03/16/25 documented as of this encounter
--- OUTSIDE RECORDS SUMMARY | 2025-03-16 08:22 | XMS_ITS | Encounter Summary ---
Author Organization [place] [address] Care Team Providers Care Legal Summer Intern Name Role Phone Rodriguez Lindo Primary Care Provider +1- [phone] Vane Hollingsworth MD Unavailable +1- [phone] Giovanna Joseph RN Unavailable Unavailable Reason for Visit * Reason Comments Follow-up Breast Cancer Malignant neoplasm o f overlapping sites of left breast in female, estrogen receptor positive Chemotherapy Encounter Details Date Type Department Care Team (Latest Contact Info) Description 03/16/2025 8:22 AM EDT - 03/16/2025 11:59 PM EDT Hospital Encounter [facility] Medical Oncology [place] [id number] Ana Rosa Del Angel, HVAC INSTRUCTOR [address] [place] [address] Malignant neoplasm of overlapping sites of left [...] documented in this encounter Progress Notes * Jama Del Angeli Erlinda, HVAC INSTRUCTOR - 03/16/2025 8:30 AM EDT Images from the original note were not included. Patient: Anne Kearney CSN: [id number] Date of : 1985 Age: 40 y.o. Date of Service: 03/16/2025 HEMATOLOGY/ONCOLOGY FU PATIENT OFFICE NOTE CURRENT TREATMENT: 12/15/2024 - TC X 4 (first cycle given in [place]) Outside oncology history: Diagnosis Invasive lobular carcinoma, 2 o'clock left breast, Jul 2024 Grade 2 ER 76%, [place] 24%, HER-2 0/negative, Ki67 13% Stage IIB; pT2, pN1a Oncotype DX recurrence score: 17 [facility] BRCA 1/2 CancerNext genetic test: Positive [...] hysterectomy with bilateral salpino-oophorectomy by Dr Ministerio Gamino/[facility] STENOTYPE OPERATOR 10/11/24 - 12/01/24 Completed adjuvant radiation therapy [...] nipple, core needle biopsies: Invasive lobular carcinoma. [place] histologic score Glandular differentiation: Score 3. Nuclear pleomorphism: Score 2. Mitotic rate: Score 1. Overall grade: Grade 2. Maximum tumor diameter is at least 1.4 cm. ER 76%, CO 24%, HER-2 0/negative, Ki67 13% 06/29/24 MRI [...] [facility] Medical Oncology who recommended referral to STENOTYPE OPERATOR for prophylactic hysterectomy due to positive BRCA2 gene, to proceed [facility], to proceed with radiation therapy after [facility] consult and adjuvant Taxotere 75mg/m2, Cyclophosphamide 600mg/m2 every 3 weeks x4 cycles, but to hold until [facility] consult completed. 09/23/[address] Lit Sheets/[facility] Breast Medical Oncology who recommended adjuvantTaxotere Cyclophosphamide x4 cycles followed by adjuvant Aromatase inhibitor + Ribociclib + Zometa. 09/27/24 Bone density ([facility]): Normal 10/01/24 Prophylactic total hysterectomy with bilateral salpino-oophorectomy by Dr Minitserio Gamino[facility] STENOTYPE OPERATOR 10/01/24 Uterus, cervix, bilateral tubes and ovaries, [...] and treatment. First dose of TC in [facility] and moved locally and here to continue her treatment Here for cycle #4 TC Got established with new PCP Dr. Garza in [place] and was given pain medication at visit 03/02, did not go visit on 03/[address] Neves in [place]. Plan to not continue following with [facility] [...] o'clock left breast, Grade 2, ER 76%, CO 24%, HER-2 0/negative, Ki67 13%, pT2, pN1a [...] visit on 03/[address] Neves in [place] -got scheduled with new PCP in [place] 03/03 who refilled her pain medication but [...] Del Angel APRN Hematology and Medical Oncology [facility] documented in this encounter Plan of Treatment Upcoming Encounters Date Type Department Care Team (Late st Contact Info) Description 04/15/2025 8:45 AM EDT Appointment [place] [address] 04/15/2025 9:15 AM EDT Appointment [facility] [place] [address] Vane Hollingsworth MD [address] [place] [address] Scheduled Orders Name Type Priority Associated Diagnoses [...] chemotherapy documented in this encounter Care Teams Legal Summer Intern Relationship Specialty Start Date End Date [facility] [address] [place] [phone] PCP - General Clinic/Center - [facility] 12/03/16 Vane Hollingsworth MD [address] [place] [address] Internal Medicine-Hematology and Oncology 02/21/25 Giovanna Joseph, RN Registered Nurse Infusion Therapy 03/16/25 03/16/25 documented as of this encounter
--- OUTSIDE RECORDS SUMMARY | 2025-03-16 16:56 | XMS_ITS | Encounter Summary ---
Demographics Address [address] [place] [address] Mobile Phone Email Address Preferred Language en Marital Status Protestant Affiliation Unknown Race White Ethnic Group Not or Lati no Author Organization Healthcare Address [address] [place] [address] Care Team Providers Care Munitions Worker Name Role Phone Pcp, No Primary Care Provider Unavailabl e Encounter Details Date Type Department Care Team (Late st Contact Info) Description 03/16/2025 4:56 PM EDT - 03/16/2025 5:25 PM EDT [facility] [address] [place] [address] Discharge Disposition: Left WIthout Being [...] on filedocumented in this encounter Care Teams Munitions Worker Relationship Specialty Start Date End Date Pcp, No [address] [place] [address] PCP - General Family Medicine 02/07/25 documented as of this encounter
--- OUTSIDE RECORDS SUMMARY | 2025-03-18 09:30 | XMS_ITS | Encounter Summary ---
Author Organization [place] [address] Care Team Providers Care Firer Powerhouse Name Role Phone Rodriguez Lindo Primary Care Provider +1- [phone] Vane Hollingsworth MD Unavailable [phone]- [phone] Reason for Visit * Oncology Medication Prior Authorization (Routine) - Authorized Specialty Diagnoses / Procedures Referred By Contac t Referred To Contact Diagnoses Malignant neoplasm of overlapping sites of left breast in female, estrogen receptor positive (HCC) Procedures ONCOLOGY MEDICATION AUTHORIZATION Vane Hollingsworth MD [address] [place] [address] Phone: tel: fax: Vane Hollingsworth MD [address] [place] [address] Phone: tel: fax: Referral ID Status Reason Start Date Expiration Date V isits Requested Visits Authorized [id number] Authorized 01/21/2025 01/21/2026 1 6 Encounter Details Date Type Department Care Team (Latest Contact Info) Description 03/18/2025 9:30 AM EDT - 03/18/2025 11:59 PM EDT Hospital En[place] [address] Malignant neoplasm of overlapping sites [...] Landa RN - 03/18/2025 9:30 AM EDT [facility] Thank [facility] for entrusting the [facility] with your care. We [...] infection DON'T WAIT, PLEASE CALL US FIRST [phone]. [FOR URGENT ISSUES PLEASE DO NOT LEAVE A MESSAGE, FOLLOW PROMPTS TO THE DOCTOR BAG WASHER] For Gynecology / Oncology call : [phone] Our hours of operation are Friday - Friday 8:00 AM - 4:30 PM. [facility] [id number] [place] [address] [phone] [place] [id number] No results found for any visits on 03/18/25. documented in this encounter Plan of Treatment Upcoming Encounters Date Type Department Care Team (Late st Contact Info) Description 04/15/2025 8:45 AM EDT Appointment [facility] [place], [place] [phone] 04/15/2025 9:15 AM EDT [facility]ointment [facility] [place], [place] [phone] Vane Hollingsworth MD [address] [place] [address] [phone] documented as of this encounter Visit Diagnoses [...] 03/18/2025 documented in this encounter Care Teams Firer Powerhouse Relationship Specialty Start Date End Date Rodriguez Lindo [address] [place] [phone] PCP - General Clinic/Center - [facility] 12/03/16 Vane Hollingsworth MD [address] [place] [address] Internal Medicine-Hematology and Oncology 02/21/25 documented as of this encounter
--- OUTSIDE RECORDS SUMMARY | 2025-03-19 00:14 | XMS_ITS | Encounter Summary ---
Demographics Address [address] [place] [address] Mobile Phone Email Address Preferred Language en Marital Status Presybeterian Affiliation Unknown Race White Ethnic Group Not or Lati no Author Organization Healthcare Address [address] [place] [address] Care Team Providers Care Hoop Expander Name Role Phone Pcp, No Primary Care Provider Unavailabl e Reason for Visit * Reason Comments Pain Management Encounter Details Date Type Department Care Team (Late st Contact Info) Description 03/19/2025 12:14 AM EDT - 03/19/2025 2:48 AM EDT Emergency [facility] Emergency Department [address] [place] [address] Fish Carranza MD [address] [place] [address] Cancer associated pain (Primary Dx); [...] at this time. History provided by: Patient bit sharpener used: No Patient History Past Medical History[1] [...] LAB HEMATOLOGY METHOD 03/19/2025 1:[address] [facility] Blood Venous blood specimen / Unknown Venipuncture / Unknown 03/19/2025 12:52 AM EDT 03/19/2025 1:07 AM EDT us Fish Carranza MD LAB BLOOD ORDERABLES Final Resul t [facility] [address] [place] [address] * (ABNORMAL) CBC w/diff (03/19/2025 12:52 AM EDT) WBC Count 41.22(H) 3.70 - 10.30 10*3/uL LAB HEMATOLOGY METHOD 03/19/2025 1:[address] [facility] RBC Count 3.12(L) 3.90 - 5.20 10*6/uL LAB HEMATOLOGY METHOD 03/19/2025 1:[address] [facility] HGB 9.5(L) 11.2 - 15.7 g/dL LAB HEMATOLOGY METHOD 03/19/2025 1:[address] [facility] HCT 29.0(L) 34.0 - 45.0 % LAB HEMATOLOGY METHOD 03/19/2025 1:[address] [facility] Platelet Count 301 155 - 369 10*3/uL LAB HEMATOLOGY METHOD 03/19/2025 1:[address] [facility] MCV 93 79 - 98 fL LAB HEMATOLOGY METHOD 03/19/2025 1:[address] [facility] MCH 30.4 26.0 - 32.0 pg LAB HEMATOLOGY METHOD 03/19/2025 1:[address] [facility] MCHC 32.8 30.7 - 35.5 g/dL LAB HEMATOLOGY METHOD 03/19/2025 1:[address] [facility] RDW 16.6(H) 11.5 - 14.5 % LAB HEMATOLOGY METHOD 03/19/2025 1:[address] [facility] MPV 10.1 8.8 - 12.5 fL LAB HEMATOLOGY METHOD 03/19/2025 1:[address] [facility] nRBC 0.0 <=0.0 per 100 WBCs LAB HEMATOLOGY METHOD 03/19/2025 1:[address] [facility] Differential Type Automated LAB HEMATOLOGY METHOD 03/19/2025 1:[address] [facility] Neutrophils % 95 % LAB HEMATOLOGY METHOD 03/19/2025 1:[address] [facility] Lymphocytes % 2 % LAB HEMATOLOGY METHOD 03/19/2025 1:12 AM [facility]T [facility] Monocytes % 1 % LAB HEMATOLOGY METHOD 03/19/2025 1:12 AM EDT [facility] Eosinophils % 0 % LAB HEMATOLOGY METHOD 03/19/2025 1:[address] [facility] Basophils % 0 % LAB HEMATOLOGY METHOD 03/19/2025 1:[address] [facility] Immature Granulocytes % 2 % LAB HEMATOLOGY METHOD 03/19/2025 1:[address] [facility] Neutrophils Absolute 39.07(H) 1.60 - 6.10 10*3/uL LAB HEMATOLOGY METHOD 03/19/2025 1:[address] [facility] Lymphocytes Absolute 0.81(L) 1.20 - 3.90 10*3/uL LAB HEMATOLOGY METHOD 03/19/2025 1:[address] [facility] Monocytes Absolute 0.34 0.30 - 0.90 10*3/uL LAB HEMATOLOGY METHOD 03/19/2025 1:[address] [facility] Eosinophils Absolute 0.02 0.00 - 0.50 10*3/uL LAB HEMATOLOGY METHOD 03/19/2025 1:[address] [facility] Basophils Absolute 0.08 0.00 - 0.10 10*3/uL LAB HEMATOLOGY METHOD 03/19/2025 1:[address] [facility] Immature Granulocytes Absolute 0.90(H) 0.00 - 0.06 10*3/uL LAB HEMATOLOGY METHOD 03/19/2025 1:[address] [facility] Blood Venous blood specimen / Unknown Venipuncture / Unknown 03/19/2025 12:52 AM EDT 03/19/2025 1:08 AM EDT Narrative [facility] - 03/19/2025 1:12 AM EDT Therapeutic decision making should be based on absolute values, rather than percentages. us Fish Carranza MD LAB BLOOD ORDERABLES Final Resul t [facility] [address] [place] [address] * (ABNORMAL) BMP (03/19/2025 12:52 AM EDT) [facility] Glucose, Plasma 79 74 - 99 mg/dL 03/19/2025 1:[address] [facility] BUN, Plasma 22(H) 7 - 21 mg/dL 03/19/2025 1:[address] [facility] Creatinine, Plasma 0.92 0.60 - 1.10 mg/dL 03/19/2025 1:[address] [facility] BUN/Creatinine Ratio 24 03/19/2025 1:[address] [facility] Sodium, Plasma 143 136 - 145 mmol/L 03/19/2025 1:[address] [facility] Potassium, Plasma 3.2(L) 3.6 - 4.9 mmol/L 03/19/2025 1:[address] [facility] Chloride, Plasma 110(H) 97 - 107 mmol/L 03/19/2025 1:[address] [facility] CO2, Plasma 21(L) 22 - 29 mmol/L 03/19/2025 1:[address] [facility] Anion Gap 12 6 - 16 mmol/L 03/19/2025 1:[address] [facility] Total Calcium, Plasma 8.4(L) 8.9 - 10.2 mg/dL 03/19/2025 1:[address] [facility] eGFRcr 80.4 mL/min/1.7 3m*2 03/19/2025 1:[address] [facility] Comment:Reported eGFRcr in m L/min/1.73m2 is based the CKD-EPI 2020 equation that does not use a race coefficient. Blood Venous blood specimen / Unknown Venipuncture / Unknown 03/19/2025 12:52 AM EDT 03/19/2025 1:07 AM EDT us Fish Carranza MD LAB BLOOD ORDERABLES Final Resul t [facility] [address] [place] [address] documented in this encounter Visit Diagnoses Diagnosis [...] Murillo) documented in this encounter Care Teams Hoop Expander Relationship Specialty Start Date End Date Pcp, [place] [address] PCP - General Family Medicine 02/07/25 documented as of this encounter
--- OUTSIDE RECORDS SUMMARY | 2025-03-21 01:02 | XMS_ITS | Encounter Summary ---
[place] [address] Care Team Providers Care Paid Search Marketing Analyst Name Role Phone Rodriguez Lindo Primary Care Provider [phone]- [phone] Vane Hollingsworth MD Unavailable [phone]- [phone] Reason for Visit * Reason Comments Pain Pt reports Breast CA and currently receiving chemo treatments. Pt decided she could return to work. Worked today and is in pain all over, pt c/o of significant pain in joints. Encounter Details Date Type Department Care Team (Late st Contact Info) Description 03/21/2025 1:02 AM EDT - 03/21/2025 2:20 AM EDT Emergency [facility] [place] [address] Javier Finney MD [address] [place] [phone] Chest pain, unspecified type (Primary Dx); Left against medical advice Discharge Disposition: Left Against Medical Advice Social History Tobacco Use Types Packs/Day Years [...] Sign Reading Time Taken Comments Blood Pressure 118/65 03/21/2025 12:31 AM EDT Pulse 90 03/21/2025 12:30 AM EDT Temperature 36.6 C (97.9 F) 03/21/2025 12:31 AM EDT Respiratory Rate 18 03/21/2025 12:30 AM EDT Oxygen Saturation 100% 03/21/2025 12:30 AM EDT Inhaled Oxygen Concentration - - Weight 81.2 kg (179 lb) 03/21/2025 12:31 AM EDT Height 167.6 cm (5' 6 ) 03/21/2025 12:31 AM EDT Body Mass Index 28.89 03/21/2025 12:31 AM EDT documented in this encounter Functional Status * Suicide Severity Rating Answer Date of Assessment Author No Risk 03/21/2025 1:48 AM EDT Regina Olsen RN * Albers Suicide Severity Rating Scale (Q shift for moderate and high) Question Answer Date of Assessment Author 1. In the past month, have y ou wished you were or wished you could go to sleep and not wake up? 0 03/21/2025 1:48 AM EDT Trudi Olsen RN 2. In the past month, have y ou actually had any thoughts of killing yourself? (If no, skip to question 6) 0 03/21/2025 1:48 AM EDT Lissette Olsen RN 6. Have you ever done anythi ng, started to do anything, or prepared to do anything to end your life? 0 03/21/2025 1:48 AM EDT Oscar Olsen RN documented as of this encounter Medications at [...] Discharge Disposition Disposition Code Departure Means Destination Comment s Left Against Medical Advice Home documented in this encounter ED Notes * Martin Cassidy NP - 03/21/2025 12:26 AM EDT Images from the original note were not included. Chief Complaint Patient presents with Pain Pt reports Breast CA and currently receiving chemo treatments. Pt decided she could return to work.Worked today and is in pain all over, pt c/o of significant pain in joints. Pain 40 y.o. y.o. with has a past medical history of Bipolar affective (HCC), Heroin overdose ([facility]), Heroin use, Insomnia, Knee pain, Paranoid schizophrenia, chronic condition ([facility]), and Polysubstance abuse ([facility]) (11/01/2017). presents to ED with c/o pain all over . Unable to tell me specifically hurts. Denies any fevers or chills. Does endorse some chest pain. Tells me pain has been ongoing since her last dose of chemotherapy. This was last week. Patient has opiates at home. She tells me they provide brief relief for about 2 hours at a time. She is unable to tell me specifically when asked her to clarify when she satisfies yes but no regarding pain relief with home medications. Seen with my attending JAVIER Lebron Patient History Allergies Allergen Reactions Hydrocodone-Acetaminophen Itching Ketorolac Other (See Comments), Itching and Rash unknown Tramadol Itching and Rash Home Medications: Prior to Admission medications Medication Sig Start Date End Date Last Dose Authorizing Provider albuterol (PROVENTIL HFA;VENTOLIN HFA) 90 mcg/actuation Inhl HFA Aerosol Inhaler Inhale 2 Puffs into the lungs every 6 hours as needed. 09/10/21 Provider, Historical buPROPion (WELLBUTRIN SR) 150 mg Oral tablet sustained-release 12 hr Take 1 Tablet by mouth 2 timesdaily. 01/14/25 Vane Hollingsworth MD dexAMETHasone (DECADRON) 4 mg Oral Tablet Take 2 tablets in the am and 2 in the pm with food on theday before each treatment, take 2 table in the pm on the day of treatment and 2 tablets in the am on the 2 days follow each treatment. 01/26/25 Vane Hollingsworth MD ibuprofen (ADVIL;MOTRIN) 800 mg Oral Tablet Take 1 Tablet by mouth every 8 hours as needed for Pain. 02/01/25 Ana Rosa Del Angel APRN LICE TREATMENT 1 % Top Liquid APPLY TOPICALLY TO AREA FOR 1 DOSE 02/03/25 Provider, Historical loperamide (IMODIUM A-D) 2 mg Oral Tablet Take 2 tablets immediately, the 1 after each diarrhea stool. OK to take up to 8 tablets daily. 02/03/25 Vane Hollingsworth MD loratadine (CLARITIN) 10 mg Oral Tablet Take 1 Tablet by mouth daily. 02/01/25 Ana Rosa Del Angel APRN Magic Mouthwash (Lido/Diph/Nystat) oral compound Take 10-20 mL by mouth every 3 hours as needed. 02/07/25 02/07/26 Vane Hollingsworth MD ondansetron (ZOFRAN) 4 mg Oral Tablet Take 1 Tablet by mouth every 8 hours as needed for Nausea. 01/14/25 Vane Hollingsworth MD oxybutynin (DITROPAN-XL) 5 mg Oral Tablet Extended Rel 24 hr Take 1 Tablet by mouth daily. 01/14/25 Vane Hollingsworth MD oxyCODONE-acetaminophen (PERCOCET) 10-325 mg Oral Tablet Take 1 Tablet by mouth every 6 hours as needed for Chronic Pain (G89.29). Do not fill before 02/13 date. 02/13/25 Vane Hollingsworth MD promethazine (PHENERGAN) 12.5 mg Oral Tablet Take 1 Tablet by mouth every 6 hours as needed for Nausea. 01/14/25 Vane Hollingsworth MD traZODone (DESYREL) 100 mg Oral Tablet Take 1 Tablet by mouth nightly as needed for Sleep. at bedtime 02/01/25 Ana Rosa Del Angel APRN Past Medical History: Past Medical History: Diagnosis Date Bipolar affective (HCC) Heroin overdose (HCC) Heroin use Insomnia Knee pain left Paranoid schizophrenia, chronic condition (HCC) Polysubstance abuse (HCC) 11/01/2017 Social History: reports that she has been smoking cigarettes. She started smoking about 22 years ago. She has a 11.2 pack-year smoking history. She has never used smokeless tobacco. She reports that she does not currently use alcohol. She reports that she does not currently use drugs after having used the following drugs: IV. She reports being sexually active. E-Cigarettes (such as Vapes or Juul) Family History: No family history on file. Surgical History: Past Surgical History: Procedure Laterality Date BREAST SURGERY left MOUTH SURGERY had 3 teeth extracted TUBAL LIGATION Review of Systems Physical Exam Blood pressure 118/65, pulse 90, temperature 97.9 ??F (36.6 ??C), temperature source Oral, resp. rate 18, height 5' 6 (1.676 m), weight 179 lb (81.2 kg), last menstrual period 07/09/2024, SpO2 100%,not currently . Physical Exam Vitals and nursing note reviewed. Constitutional: General: She is not in acute distress. Appearance: She is well-developed and normal weight. She is ill-appearing. HENT: Head: Normocephalic and atraumatic. Right Ear: External ear normal. Left Ear: External ear normal. Nose: Nose normal. Mouth/Throat: Mouth: Mucous membranes are dry. Pharynx: Oropharynx is clear. Eyes: Conjunctiva/sclera: Conjunctivae normal. Pupils: Pupils are equal, round, and reactive to light. Cardiovascular: Rate and Rhythm: Normal rate and regular rhythm. Heart sounds: No murmur heard. No friction rub. No gallop. Pulmonary: Effort: Pulmonary effort is normal. Breath sounds: Normal breath sounds. No wheezing. Abdominal: General: Bowel sounds are normal. There is no distension. Palpations: Abdomen is soft. Tenderness: There is no abdominal tenderness. Musculoskeletal: Cervical back: Normal range of motion and neck supple. Lymphadenopathy: Cervical: No cervical adenopathy. Skin: General: Skin is warm and dry. Capillary Refill: Capillary refill takes less than 2 seconds. Findings: No rash. Neurological: Mental Status: She is alert and oriented to person, place, and time. Procedures Radiology/EKG/Labs: EK EKG [address] [facility] Test Date: 2025-03-21 Pat Name: ROSIE DEE Department: DEPID Room: Gender: Female Phone Manager: : 1985 Requested By: MARTIN CASSIDY Order Number: [id number] Reading MD: Measurements Intervals [place] Rate: 87 P: 30 CO: 148 QRS: 52 QRSD: 96 T: 49 QT: 362 QTc: 438 Interpretive Statements SINUS RHYTHM CT ANGIOGRAM PULMONARY W CONTRAST (Results Pending) EKG EK EKG 12 LEAD Labs Reviewed - No data to display Medications droPERidol (INAPSINE) injection 1.25 mg (1.25 mg Intravenous Not Given 03/21/25 0145) diphenhydrAMINE (BENADRYL) injection 12.5 mg (12.5 mg Intravenous Not Given 03/21/25 0145) sodium chloride 0.9 % 1,000 mL IV bolus ( Intravenous Stopped 03/21/25 0214) ED Course: Appropriate laboratory and radiology studies reviewed ED Course as of 03/21/25 0456 Martin Cassidy's Documentation FriMar 21, 2025 0218 Informing nursing staff that patient had declined droperidol and left the ER. I was unable to discuss AMA with them however this was discussed with patient by nursing staff. Labs are concerning with leukocytosis however this appears to be consistent with labs that patient had done just a couple of days ago at . Given her SOB/CP I had also ordered a CT PE which were unable to perform as patient has left AMA. ED Clinical Impression: 1. Chest pain, unspecified type 2. Left against medical advice Critical Care time MDM Medical Decision Making 40-year-old presents as above. Her vital signs are stable. PDMP was reviewed and reveals patient is chronically on pain medications as well as had a brief course of opiates prescribed by a few days ago. A broad workup was initiated as above. Labs ordered. CT scan was ordered. Given the patient's significant history as well as recent opiates dispensed I attempted droperidol for pain control. PDMP was concerning. The patient declined this for nursing staff. Unfortunately before I could talk to her the patient has eloped. AMA was discussed with patient by her nurse. Condition at Discharge/Transfer from Department: Left AMA This chart was completed using voice recognition technology and may contain unintended errors Martin Cassidy NP 03/21/25 0458 Cosigned by Javier Finney MD at 03/22/2025 9:38 AM EDT Associated attestation - Javier Finney MD - 03/22/2025 9:38 AM EDT I have reviewed the chief complaint, history of present illness, physical examinations, workup results for this patient. I have participated in the care of this patient. I personally approved the management plan for this patient and take responsibility for the patient management. I interpret EKG independently. EK EKG 12 LEAD ED Interpretation by Javier Finney MD (03/21 0592) EKG is ordered and interpreted by me. EKG reveals sinus rhythm. Rate of 90. Normal axis. No acute ST change. EKG is within normal limits . documented in this encounter Plan of Treatment Upcoming Encounters Date Type Department Care Team (Late st Contact Info) Description 04/15/2025 8:45 AM EDT Appointment [place] [address] 04/15/2025 9:15 AM EDT [facility]ointment [facility] [place] [address] Vane Hollingsworth MD [address] [place] [address] documented as of this encounter Procedures Procedure Name Priority Date/Time Associated Diagnosis Comments SCANNED EKG 03/22/2025 11:04 AM EDT LACTIC ACID STAT 03/21/2025 2:07 AM EDT TROPONIN-T HIGH SENSITIVITY BASELINE W/ REFLEX STAT 03/21/2025 2:06 AM EDT CBC WITH DIFF STAT 03/21/2025 2:06 AM EDT COMPREHENSIVE METABOLIC PANEL STAT 03/21/2025 2:06 AM EDT EK EKG 12 LEAD STAT 03/21/2025 1:40 AM EDT documented in this encounter Results * SCANNED EKG (03/22/2025 11:04 AM EDT) Anatomical Region Laterality Modality Other 03/22/2025 11:0 4 AM EDT us Unknown Provider IMG ECG ORDERABLES Final Result * LACTIC ACID (03/21/2025 2:07 AM EDT) [facility] Lactic Acid 1.1 0.5 - 1.9 mmol/L 03/21/2025 2:26 AM EDT PREFERRED [facility] [employer] [employer] Blood VENOUS BLOOD / Unknown Venipuncture / Unknown 03/21/2025 2:07 AM EDT 03/21/2025 2:07 AM EDT us Martin Cassidy SLATE CUTTER CHEMISTRY ORDERABLES Final Res ult [facility] [address] [place] [address] * TROPONIN-T HIGH SENSITIVITY BASELINE W/ REFLEX (03/21/2025 2:06 AM EDT) oz-oIsdizyln-G <6 <14 ng/L 03/21/2025 2:29 AM EDT PREFERRED [facility] [employer] [employer], [facility] Blood VENOUS BLOOD / Unknown Venipuncture / Unknown 03/21/2025 2:06 AM EDT 03/21/2025 2:06 AM EDT Narrative [facility] [employer] [employer], [facility] - 03/21/2025 2:29 AM EDT Ingestion of manda doses of biotin (>5 mg/day) taken within 8 hours of drawing blood sample can interfere with this immunoassay test. us Martin Cassidy NP CHEMISTRY ORDERABLES Final Res ult [facility] [address] , [address] [place] [id number] * (ABNORMAL) COMPREHENSIVE METABOLIC PANEL (03/21/2025 2:06 AM EDT) Sodium 140 136 - 145 mmol/L 03/21/2025 2:29 AM EDT [facility] Potassium 3.6 3.5 - 5.0 mmol/L 03/21/2025 2:29 AM EDT [facility] Chloride 107 98 - 107 mmol/L 03/21/2025 2:29 AM EDT [facility] Total CO2 22 22 - 29 mmol/L 03/21/2025 2:29 AM EDT [facility] Anion Gap 11 7 - 16 mmol/L 03/21/2025 2:29 AM EDT [facility] Calcium 9.0 8.6 - 10.4 mg/dL 03/21/2025 2:29 AM EDT [facility] Glucose Lvl 89 70 - 99 mg/dL 03/21/2025 2:29 AM EDT [facility] BUN 12 6 - 20 mg/dL 03/21/2025 2:29 AM EDT [facility] Creatinine 0.69 0.51 - 1.30 mg/dL 03/21/2025 2:29 AM EDT [facility] Albumin 4.0 3.5 - 5.2 gm/dL 03/21/2025 2:29 AM EDT [facility] Total Protein 6.2(L) 6.4 - 8.3 gm/dL 03/21/2025 2:29 AM EDT [facility] Bili Total 0.3 0.2 - 1.3 mg/dL 03/21/2025 2:29 AM EDT [facility] ALT 14 <=41 U/L 03/21/2025 2:29 AM EDT [facility] AST 16 <=40 U/L 03/21/2025 2:29 AM EDT [facility] Alk Phos 95 36 - 123 U/L 03/21/2025 2:29 AM EDT [facility] eGFR (CKD-EPIcr 2020) 111 >=60 mL/min/1.7 3 m2 03/21/2025 2:29 AM EDT [facility] Comment:Estimated GFR was ca lculated using the CKD-EPIcr (2020) equation refit without race. The equation is recommended by the National Kidney Foundation - [place] Society of Nephrology Task Force. Blood VENOUS BLOOD / Unknown Venipuncture / Unknown 03/21/2025 2:06 AM EDT 03/21/2025 2:06 AM EDT us Martin Cassidy NP CHEMISTRY ORDERABLES Final Res ult [facility] [address] [place] [address] * (ABNORMAL) CBC WITH DIFF (03/21/2025 2:06 AM EDT) WBC 20.0(H) 3.7 - 10.3 x10(3)/mcL 03/21/2025 2:36 AM EDT [facility] RBC 2.97(L) 3.90 - 5.20 x10(6)/mcL 03/21/2025 2:36 AM EDT [facility] Hgb 9.2(L) 11.2 - 15.7 g/dL 03/21/2025 2:36 AM EDT [facility] Hct 28.4(L) 34.0 - 45.0 % 03/21/2025 2:36 AM EDT [facility] MCV 95.6 80.0 - 100.0 fL 03/21/2025 2:36 AM EDT [facility] MCH 31.0 26.0 - 34.0 pg 03/21/2025 2:36 AM EDT [facility] MCHC 32.4 30.7 - 35.5 g/dL 03/21/2025 2:36 AM EDT [facility] RDW 16.9(H) <=14.9 % 03/21/2025 2:36 AM EDT [facility] Platelet 225 155 - 369 x10(3)/mcL 03/21/2025 2:36 AM EDT [facility] MPV 10.7 8.8 - 12.5 fL 03/21/2025 2:36 AM EDT [facility] Segs 95 % 03/21/2025 2:36 AM EDT [facility] Lymphs 3 % 03/21/2025 2:36 AM EDT [facility] Monos 1 % 03/21/2025 2:36 AM EDT [facility] Eos 1 % 03/21/2025 2:36 AM EDT [facility] Baso 0 % 03/21/2025 2:36 AM EDT [facility] Neut # 19.0(H) 1.6 - 6.1 x10(3)/mcL 03/21/2025 2:36 AM EDT [facility] Lymph # 0.6(L) 1.2 - 3.9 x10(3)/mcL 03/21/2025 2:36 AM EDT [facility] [place] # 0.2(L) 0.3 - 0.9 x10(3)/mcL 03/21/2025 2:36 AM EDT [facility] Eos # Manual 0.2 0.0 - 0.5 x10(3)/mcL 03/21/2025 2:36 AM EDT [facility] Baso # Manual 0.0 0.0 - 0.1 x10(3)/mcL 03/21/2025 2:36 AM EDT [facility] Aniso Moderate 03/21/2025 2:36 AM EDT [facility] Hypochrom Moderate 03/21/2025 2:36 AM EDT [facility] Stomatocyte Occasional 03/21/2025 2:36 AM EDT [facility] Blood VENOUS BLOOD / Unknown Venipuncture / Unknown 03/21/2025 2:06 AM EDT 03/21/2025 2:06 AM EDT Martin Cassidy SLATE CUTTER HEMATOLOGY ORDERABLES Final Re sult [facility] [employer] [address] [place] [address] * EK EKG 12 LEAD (03/21/2025 1:40 AM EDT) Anatomical Region Laterality Modality Electrocardiogra phy 03/21/2025 1:47 AM EDT Impressions 03/21/2025 2:[address] [facility] Test Date: 2025-03-21 Pat Name: [facility] Department: DEPID Room: 09 Gender: Female Phone Manager: : 1985 Requested By: MARTIN CASSIDY Order Number: [id number] Reading MD: Juan Corona MD Measurements Intervals [place] Rate: 87 P: 30 CO: 148 QRS: 52 QRSD: 96 T: 49 QT: 362 QTc: 438 Interpretive Statements SINUS RHYTHM Electronically Signed On 03-21-2025 14:36:14 EDT by Juan Corona MD Narrative Procedure Note Juan Corona MD - 03/21/[address] [facility] Test Date: 2025-03-21 Pat Name: [facility] Department: DEPID Room: 09 Gender: Female Phone Manager: : 1985 Requested By: MARTIN CASSIDY Order Number: [id number] Reading MD: Juan Corona MD Measurements Intervals [place] Rate: 87 P: 30 CO: 148 QRS: 52 QRSD: 96 T: 49 QT: 362 QTc: 438 Interpretive Statements SINUS RHYTHM Electronically Signed On 03-21-2025 14:36:14 EDT by Juan Corona MD Result [facility] Martin Cassidy SLATE CUTTER IMG ECG ORDERABLES Final Resul t documented in this encounter Visit Diagnoses Diagnosis Chest pain, unspecified type- Primary Left against medical advice Surgical or other procedure not carried out because of patient's decision documented in this encounter Administered Medications Inactive Administered Medications - up to 1 most recent administrations Medication Order MAR Action Action Date Dose Rate Site sodium chloride 0.9 % 1,000 mL IV bolus Intravenous, ONCE, 1 dose, On Fri03/21/25 at 0145, at 983.6 mL/hr IV Started 03/21/2025 1:55 AM EDT 983.6 mL/hr documented in this encounter Active and Recently Administered Medications Times are shown in EDT. Scheduled Medication Order 03/19/2025 03/20/2025 03/21/2025 diphenhydrAMINE (BENADRYL) injection 12.5 mg 12.5 mg, Intravenous, ONCE, 1 dose, On Fri03/21/25 at 0145 0145 (Not Given - Pr ovider: Lissette Olsen RN - Reason: Patient Declined) droPERidol (INAPSINE) injection 1.25 mg 1.25 mg, Intravenous, ONCE, 1 dose, On Fri03/21/25 at 0145 0145 (Not Given - Pr ovider: Lissette Olsen RN - Reason: Patient Declined) sodium chloride 0.9 % 1,000 mL IV bolus (COMPLETED) Intravenous, ONCE, 1 dose, On Fri03/21/25 at 0145, at 983.6 mL/hr 0155 (IV Started - P rovider: Lissette Olsen RN)0214 (Stopped - Provider: Lissette Olsen RN) documented in this encounter Orders Medications Ordered That Jose Angel ht Not Have Been Administered Count Last Ordered Date First Ordered Date diphenhydrAMINE (BENADRYL) i njection 12.5 mg 1 03/21/2025 droPERidol (INAPSINE) injection 1.25 mg 1 0 03/21/2025 sodium chloride 0.9 % 1,000 mL IV bolus 1 0 03/21/2025 documented in this encounter Care Teams Paid Search Marketing Analyst Relationship Specialty Start Date End Date Rodriguez Lindo [address] [place] [address] PCP - General Clinic/Center - [facility] ([facility]) 12/03/16 Vane Hollingsworth MD [address] [place] [address] Internal Medicine-Hematology and Oncology 02/21/25 documented as of this encounter
--- NOTE | 2025-03-29 00:56 | HMH.EDGENADL ---
Discharge Plan Disposition Patient Disposition: Home, Self-Care Referrals Follow up/Referrals: Provider,Referral, [Primary Care Provider, Medical] - See instructions Activity Restrictions/Add. Instructions Additional Instructions/Restrictions: Please follow-up with your primary care provider and your oncology team. please return to the emergency department if you develop any new or worsening symptoms or become concerned for your health. Clinical Impressions Clinical Impression: Rash Instructions Patient Instructions: DI for Skin Abscess Print Language Print Language: Swazi Discharge ED Provider: Giancarlo Stovall General Adult HPI General Chief complaint: Skin/Abscess/Foreign Body Stated complaint: rash on both arms Time Seen by Provider: 03/29/25 00:55 History of Present Illness HPI narrative: 40-year-old female with history of breast cancer, actively on chemotherapy presents with concern for rash on her arms. She reports she works at [employer] and is exposed to bleach when they clean. She is concerned about the rash on her arms. It is located below the elbows bilaterally. It is mildly painful, not itchy. Started several days ago and has not been getting much better. She thinks it could be the bleach but she has not really acted like this before. He last got chemo last week. She thinks it could also be a reaction to the chemo. Related Data Allergies Allergy/AdvReac Type Severity Reaction Status Date / Time hydrocodone Allergy Hives Verified 03/16/25 19:04 ketorolac (From Toradol) Allergy Hives Verified 03/16/25 19:04 tramadol Allergy Hives Verified 03/16/25 19:04 [facility] Disclaimer: The information contained in this section may have been updated after the patient was seen, as this information can be updated by other users. Social History (Updated 03/16/25 @ 20:17 by FANNIE Patel) Smoking Status: Current every day smoker alcohol intake: never current occupational status: other Travel in the last 8 weeks?: None Have you lived/traveled outside [place] in past 30 days?: No Contact w/someone who lives/traveled outside US past 30 days?: No Exposure to someone with infectious disease in past 14 days?: No Do you have a fever (greater than 100.4 F or 38 C)?: No Have you tested positive for COVID-19?: No Exposed to someone with COVID-19 in past 14 days?: No Do you have a sore throat?: No Do you have a cough?: No Do you have any weakness?: No Do you have any diarrhea?: No Are you experiencing any unusual bleeding?: No Do you have any muscle aches/pain?: No Do you have any abdominal pain?: No Are you experiencing loss of taste or smell?: No ROS Obtained: Yes All systems reviewed & no additional complaints except as documented Physical Exam General General appearance: alert and in no apparent distress Head Head exam: atraumatic and normocephalic Eye Eye exam: Present normal appearance, PERRL and EOMI ENT ENT exam: Present normal oropharynx and normal external ear exam Neck Neck exam: Present normal inspection and full ROM Chest Chest inspection: Present normal inspection and symmetric chest wall rise; Absent tenderness Respiratory Respiratory exam: Present normal lung sounds bilaterally; Absent respiratory distress Cardiovascular Cardiovascular exam: Present regular rate and normal rhythm Abdominal Exam Abdominal exam: Present soft; Absent distention, tenderness or guarding Extremities Exam Extremities exam: Present normal inspection; Absent edema or joint swelling Back Exam Back exam: Present normal inspection; Absent tenderness Neurological Exam Neurological exam: Present alert and oriented X3; Absent motor sensory deficit Psychiatric Psychiatric exam: Present normal affect and normal mood Skin Skin exam: Present warm, dry, normal color and rash (Splotchy erythematous blanching rash to the bilateral forearms and hands. Nonraised. No ulceration. Mildly tender in some locations.) Lymphatic Lymphatic Findings: no adenopathy Medical Decision Making Medical Records Medical records reviewed: Yes I reviewed the patient's medical records. Screening: Per USPSTF and CDC recommendations, given the prevalence of disease in our region, it is our hospital?s policy to screen for HIV and viral Hepatitis for all patients aged 18 and over and those with ongoing risk factors. Jerome Inquiry Pt receiving controlled substance: No Jerome was queried for this patient: No Vital Signs: 03/29/25 00:59 03/29/25 01:16 Temperature 97.4 F L 97.4 F L Temperature Source Oral Oral Pulse Rate 88 Pulse Rate [Left Radial] 88 Respiratory Rate 18 18 Blood Pressure 119/72 Blood Pressure [Right Arm] 119/72 Blood Pressure Mean [Right Arm] 87 Blood Pressure Source Automatic Cuff Blood Pressure Source [Right Arm] Automatic Cuff Blood Pressure Position Sitting Blood Pressure Position [Right Arm] Sitting 02 Sat by Pulse Oximetry 100 Oxygen Delivery Method Room Air Room Air Lab Data Lab results reviewed: Yes I reviewed the patient's lab results. Orders (Tests/Meds): ED MEDICATIONS Discontinued Medications Generic Name Dose Route Start Last Admin Trade Name Paige PRN Reason Stop Dose Admin Bacitracin 1 gm 03/29/25 01:07 03/29/25 01:12 Bacitracin Zinc Oint 30gm Tube TP 03/29/25 01:08 1 gm DAILY ONE Administration Medical Decision Narrative: 40-year-old female with history of breast cancer status postmastectomy, radiation, actively on chemo presents for rash to the bilateral forearms and hands. History was obtained via interactive discussion with patient. On arrival, patient is [afebrile, hemodynamically stable, satting appropriately, alert, oriented x4, GCS 15], moving all extremities spontaneously. Full physical exam performed and significant for Splotchy erythematous blanching rash to the bilateral forearms and hands. Nonraised. No ulceration. Mildly tender in some locations. Differential includes but is not limited to contact dermatitis secondary to cleaning chemicals at work, chemotherapy reaction, vasculitis, cellulitis. I think patient is likely more sensitive to the chemicals at work secondary to the effects of the chemo that she is on. No evidence of infection or serious allergic reaction at this time. Recommended she continue to monitor the area and follow-up with her oncologist. Recommend she cover up her entire arms and try to avoid contact with these cleaning chemicals at work. Procedures Risk/Benefits of Procedure(s) Were Explained: Yes Critical Care Critical Care Time Critical Care Time: No
[2025-03-29 00:59] VITALS: BP 119/72; PULSE 88; RESP 18; TEMP 36.3; O2SAT 100; BMI 29.0
[2025-03-29] MEDS: BACITRACIN ZINC OINT 30GM TUBE TP (01:12)
--- OUTSIDE RECORDS SUMMARY | 2025-03-29 01:15 | XMS_ITS | Clinical Summary ---
[facility] Address [address] [place] [phone] Care Team Providers Care Dinking Machine Operator Name Role Phone Juan Luis Garza MD Primary Care Provider Allergies Active Allergy Reactions Criticality Noted Date Comments Hydrocodone Itching Medium 07/04/2021 Hydrocodone-Acetaminophen Itching Medium 02/10/2011 Ketorolac Itching Low 02/13/2024 Tramadol Itching Medium 07/23/2011 Medications * This document contains information received from the source organization and may not represent a complete record from that organization. albuterol sulfate HFA 108 (90 Base) MCG/ACT inhalerIndicati ons:Wheeze,Seas onal allergies Inhale 2 puffs Every 4 (Four) Hours As Needed for Wheezing. 18 g 2 06/18/20 24 Active ibuprofen (ADVIL,MOTRIN) 800 MG tablet Take 1 tablet by mouth Every 6 (Six) Hours As Needed for Mild Pain. 90 tablet 1 10/04/2024 5:45 PM EST 10/01/19 25 Active ondansetron (Zofran) 4 MG tablet Take 1 tablet by mouth Every 8 (Eight) Hours As Needed for Nausea or Vomiting. 15 tablet 10/27/2024 4:22 PM EST 10/27/19 25 026 Active Fezolinetant (VEOZAH) 45 MG tablet Take 1 tablet by mouth Daily. 30 tablet 11/04/19 25 Active oxybutynin (DITROPAN) 5 MG tablet 10/21/19 Active dexAMETHasone (DECADRON) 4 MG tablet Take 1 tablet by mouth As Needed (before and after treatments). 12/02/19 Active lidocaine-prilo timo (EMLA) 2.5-2.5 % cream Apply 1 Application topically to the appropriate area as directed As Needed. 12/02/19 Active loperamide (IMODIUM A-D) 2 MG tablet Take 1 tablet by mouth As Needed for Diarrhea (After treatments). 02/04/20 Active loratadine (CLARITIN) 10 MG tablet Take 1 tablet by mouth Daily. 02/02/20 Active naloxone (NARCAN) 4 MG/0.1ML nasal spray Administer 1 spray into the nostril(s) as directed by provider As Needed. 12/03/19 Active promethazine (PHENERGAN) 12.5 MG tablet Take 1 tablet by mouth Every 6 (Six) Hours As Needed. for nausea Active oxyCODONE-aceta minophen (Percocet) 10-325 MG per tabletIndicatio ns:Malignant neoplasm of left breast in female, estrogen receptor positive, unspecified site of breast,Bilatera l hip pain,Chronic bilateral thoracic back pain,Neck pain,Pelvic pain Take 1 tablet by mouth Every 6 (Six) Hours As Needed for Moderate Pain or Severe Pain. 120 tablet 03/02/20 25 Active budesonide-form oterol (Symbicort) 160-4.5 MCG/ACT inhalerIndicati ons:Pulmonary emphysema, unspecified emphysema type Inhale 2 puffs 2 (Two) Times a Day. 10.2 g 3 03/03/20 25 Active traZODone (DESYREL) 50 MG tabletIndicatio ns:Insomnia, unspecified type Take 1 tablet by mouth every night at bedtime. 90 tablet 3 03/03/20 25 Active buPROPion SR (Wellbutrin SR) 150 MG 12 hr tabletIndicatio ns:Depression with anxiety Take 1 tablet by mouth 2 (Two) Times a Day. 180 tablet 3 03/03/20 25 Active traZODone (DESYREL) 100 MG tabletIndicatio ns:Insomnia, unspecified type Take 1 tablet by mouth every night at bedtime. 90 tablet 1 08/30/20 24 Discontinu ed(Reorder ) buPROPion HCl (WELLBUTRIN PO) Take by mouth 2 (Two) Times a Day. Discontinu ed(Duplica te order) oxyCODONE-aceta minophen (Percocet) 7.5-325 MG per tabletIndicatio ns:Pelvic pain Take 1 tablet by mouth Every 8 (Eight) Hours As Needed for Severe Pain. 10 tablet 10/04/2024 5:45 PM EST 10/04/19 25 Discontinu ed(Discont inued by another clinician) oxyCODONE-aceta minophen (Percocet) 10-325 MG per tabletIndicatio ns:Malignant neoplasm of left breast in female, estrogen receptor positive, unspecified site of breast,Bilatera l hip pain,Chronic bilateral thoracic back pain,Neck pain,Pelvic pain Take 1 tablet by mouth Every 6 (Six) Hours As Needed for Moderate Pain or Severe Pain. 120 tablet 03/02/20 25 Discontinu ed(Reorder ) budesonide-form oterol (Symbicort) 160-4.5 MCG/ACT inhalerIndicati ons:Pulmonary emphysema, unspecified emphysema type Inhale 2 puffs 2 (Two) Times a Day. 10.2 g 3 03/02/20 25 Discontinu ed(Reorder ) buPROPion SR (Wellbutrin SR) 150 MG 12 hr tabletIndicatio ns:Depression with anxiety Take 1 tablet by mouth 2 (Two) Times a Day. 180 tablet 3 03/02/20 25 Discontinu ed(Reorder ) traZODone (DESYREL) 50 MG tabletIndicatio ns:Insomnia, unspecified type Take 1 tablet by mouth every night at bedtime. 90 tablet 3 03/02/20 25 Discontinu ed(Reorder ) Active Problems Problem Noted Date Diagnosed Date Neck pain 03/02/2025 History of radiation therapy 03/02/2025 Malignant neoplasm of overla pping sites of left breast in female, estrogen receptor positive 01/14/2025 Prophylaxis for chemotherapy-induced neutropenia 12/02/2024 Encounter for care related to Port-a-Cath 2024 Menorrhagia with regular cycle 09/15/2024 Dysmenorrhea 09/15/2024 Pelvic pain 09/15/2024 Dyspareunia in female 09/15/2024 S/P bilateral mastectomy 09/14/2024 S/P lymph node biopsy 09/14/2024 Former smoker 09/14/2024 Invasive ductal carcinoma of breast, female, lef t 07/29/2024 Invasive lobular carcinoma of breast in female 1 09/11/2023 BRCA gene mutation positive 07/12/2024 Malignant neoplasm of female breast 06/30/2024 Assessment & Plan (03/04/2025 4:40 PM EDT): For skin complete her last round of chemotherapy with her oncologist that she is currently following with. She would like a referral to establish care with an oncologist here in [place] with [facility] once chemotherapy has been completed for further follow-up. Referral was placed today. Hip pain 12/18/2021 Assessment & Plan (12/18/2021 8:03 PM CDT): - I will refill the patient's oxycodone up to 4 times daily for the next month. - Orders for MRI PELVIS postponed at this time to see if PT improves symptoms. - I will refer the patient to pain management. Anxiety 12/18/2021 Assessment & Plan (12/18/2021 8:05 PM CDT): Insomnia 12/18/2021 Assessment & Plan (03/04/2025 4:39 PM EDT): [place] that the trazodone 100 mg was making [...] mg nightly. Patient follow-up in 3 months. Assessment & Plan (12/18/2021 8:04 PM CDT): - I will refill the patient's 100 mg trazodone at this time. - Instructed patient to cut 100 mg trazodone in half, and take 50 mg trazodone. Depression with anxiety 12/18/2021 Assessment & Plan (03/04/2025 4:37 PM EDT): Patient's depression is a recurrent episode that is moderate without psychosis. Depression is in partial remission and improving with treatment. Plan: Continue current medication therapy Followup in 3 months. Assessment & Plan (12/18/2021 8:06 PM CDT): - I will increase the patient's Cymbalta. Acute abdominal pain 11/28/2021 Change in bowel habits 11/28/2021 Overview (11/28/2021): Added automatically from request for surgery [id number] Epigastric pain 11/28/2021 Overview (07/05/2022): Endoscopy 12/2021 normal. Mucous in stools 11/28/2021 Overview (07/05/2022): Colonoscopy 12/2021 normal. Repeat colonoscopy 12/2031. Encounter for long-term (current) use of NSAIDs 11/28/2021 Overview (11/28/2021): Added automatically from request for surgery [id number] Weight loss 11/28/2021 Overview (11/28/2021): Added automatically from request for surgery [id number] Loss of appetite 11/28/2021 Overview (11/28/2021): Added automatically from request for surgery [id number] Early satiety 11/28/2021 Overview (11/28/2021): Added automatically from request for surgery [id number] Hepatitis C virus infection cured after antiviral drug therapy 11/23/2021 Overview (07/05/2022): GT 3. Started 8 weeks Mavyret 12/2021. HCV RNA neg at completion of treatment and LFTs normal. SVR achieved. Assessment & Plan (12/18/2021 8:05 PM CDT): - Advised patient to discontinue Protonix medication until she has completed the hepatitis-C medication course. 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 Arthritis of lumbar spine 11/20/2021 Overview (11/20/2021): At L3-4 Degeneration, intervertebral disc, lumbar 2021 Overview (11/20/2021): L3-L4 with some retrolisthesis Chronic thoracic back pain 11/01/2017 Assessment & Plan (03/04/2025 4:38 PM EDT): Patient has chronic pain in multiple joints. She will continue ibuprofen and Percocet. Patient was given referral to pain management to establish with a provider here in town to take over writing her Percocet. Patient will be given a refill in order to give her time to get in to see a new provider. Jerome was reviewed and appropriate. Polysubstance abuse 11/01/2017 Emphysema lung Assessment & Plan (03/04/2025 4:39 PM EDT): COPD is poorly. Plan: Patient will begin [...] effects of treatment Followup in 3 months. Headache Resolved Problems Problem Noted Date Diagnosed Date Resolved Date Acute septic pulmonary embol ism without acute cor pulmonale 11/01/2017 03/02/2025 Encounters Date Type Department Care Team Description 03/04/2025 8:58 AM CDT Hospital Encounter [facility] [address] [facility] [place] [phone] 03/02/2025 2:30 PM EDT Office Visit [facility] [address] [phone] Juan Luis Garza MD Malignant neoplasm of left breast in female, estrogen receptor positive, unspecified site of breast (Primary Dx); Bilateral hip pain; Chronic bilateral thoracic back pain; Neck pain; Pelvic pain; Depression with anxiety; Pulmonary emphysema, unspecified emphysema type; Insomnia, unspecified type 03/02/2025 Telephone [facility] [address] [phone] Juan Luis Garza MD 03/02/2025 Telephone [facility] [address] [phone] Juan Luis Garza MD Prior Authorization 03/02/2025 Travel 02/01/[address] [phone] Avila Puri, DO Head lice infestation (Primary Dx) 01/28/[address] [phone] Avila Puri, DO Head lice 01/28/2025 Refill [facility] [address] [place] [address] [phone] Avila Puri, DO Head lice (Primary Dx) from Last 3 Months Immunizations Immunization Administration Dates Next Due DT 03/08/2011 Fluzone >6mos 06/11/2024 Fluzone (or Fluarix & Flulaval for VFC) >6mos Hepatitis A 03/04/2019 Pneumococcal Polysaccharide (PPSV23) 06/28/2021 Td (TDVAX) 03/08/2011 Tdap 10/27/2023,06/28/2021 Family History Medical History Relation Name Comments No Known Problems Brother 1 No Known Problems Brother 2 No Known Problems Daughter Other Father unknown No Known Problems Half-Brother No Known Problems Half-Sister 1 No Known Problems Half-Sister 2 Cancer Maternal Grandfather unknown type Other Maternal Grandmother unknown COPD Mother Ne Wolff Depression Mother Ne Wolff Drug abuse Mother Ne Wolff Early Mother Ne Wolff Alcohol abuse Paternal Grandfather Liver disease Paternal Grandfather Breast cancer Paternal Grandmother No Known Problems Son Relation Name Status Comments Brother 1 Alive Brother 2 Alive Daughter Alive Father Alive Half-Brother Alive Half-Sister 1 Alive Half-Sister 2 Alive Maternal Grandfather Maternal Grandmother Mother Ne Wolff Paternal Grandfather Paternal Grandmother Son Alive Social History Tobacco Use Types Packs/Day [...] or training? Not on file Preferred Language Nauruan 09/27/2024 PHQ-2 Answer Date Recorded Patient Health Questionnaire-2 Score 0 10/18/2024 Comments No Sex and Gender Information Value Date Recorded Sex Assigned at Female 02/26/2025 10:23 PM EDT Legal Sex Female 10:15 PM EDT Gender Identity Not on file Sexual Orientation Straight 02/26/2025 10 :23 PM EDT Last Filed Vital Signs Vital Sign [place] Time Taken Comments Blood Pressure 112/64 03/02/2025 1:59 PM EDT Pulse 86 03/02/2025 1:59 PM EDT Temperature 37.4 C (99.3 F) 03/02/2025 1:59 PM EDT Respiratory Rate 22 12/20/2024 3:34 AM CDT Oxygen Saturation 98% 03/02/2025 1:59 PM EDT Inhaled Oxygen Concentration - - Weight 79.6 kg (175 lb 6.4 oz) 03/02/2025 1:59 P M EDT Height 167.6 cm (5' 6 ) 03/02/2025 1:59 PM EDT Body Mass Index 28.31 03/02/2025 1:59 PM EDT Plan of Treatment Upcoming Encounters Date Type Department Care Team (Late st Contact Info) Description 06/06/2025 10:30 AM EDT Office Visit [facility] [address] [place] [phone] Juan Luis Garza MD [facility] [place] [phone] Health Maintenance Due Date Last Done Comments Annual Gynecologic Pelvic and Breast Exam 1985 Hepatitis B (1 of 3 - 19+ 3-dose series) 01/29/2003 Pneumococcal Vaccine 0-49 (2 of 2 - PCV) 06/28/2022 06/28/2021 ANNUAL PHYSICAL 04/22/2025 04/22/2024, 06/28/2021 INFLUENZA VACCINE 06/08/2025 06/11/2024, 10/06/2023 COVID-19 Vaccine (2 - Pfizer risk series) 12/02/2025 10/06/2023 Postponed from 10/27/2023 (Patient Refused) COLONOSCOPY 12/28/2031 12/27/2021, 12/27/2021 COLORECTAL CANCER SCREENING 12/28/2031 TDAP/TD VACCINES (4 - Td or Tdap) 10/27/2033 10/27/2023, 06/28/2021, 03/08/2011 MAMMOGRAM Discontinued 06/18/2024, 06/14/2024 HEPATITIS C SCREENING Completed 02/07/2025 , 02/07/2025, 07/09/2024, Additional history exists Medical Devices Implanted Type Area Dewatering Filtering Supervisor Device Identifier Shelf Expiration Date Model / Serial / Lot Clipapplr M/ Endo Ligaclip 30clp 11in Md - [id number] Implanted:Qty : 1 on 07/29/2024 by Giovanna Tolentino MD at [facility] Implant Breast [employer] DIV OF AND J 04/07/2029 [id number] / / [id number] Clipapplr M/ Endo Ligaclip 30clp 11in Md - [id number] Implanted:Qty : 1 on 07/29/2024 by Giovanna Tolentino MD at [facility] Implant Breast [employer] DIV OF AND J 04/07/2029 [id number] / / [id number] Markr Tiss/Brst Magtrace No/Raditon Inj/Liq 2ml - [id number] Implanted:Qty : 1 on 07/29/2024 by Giovanna Tolentino MD at [facility] Implant Left: Breast [employer] [id number] / / Dev Contrl Tiss Stratafix Spiral Pds Plus Sz0 Ct/2 30cm Cecy - [id number] Implanted:Qty : 1 on 10/01/2024 by Ministerio Gamino MD at [facility] Implant N/A: Abdomen [employer] DIV OF AND J 04/07/2025 [id number] / / [id number] Kt Port Clearvue Powerport Isp W/8f Poly Cath - [id number] Implanted:Qty : 1 on 10/27/2024 by Giovanna Tolentino MD at [facility] Implant Right: Chest BARD PERIPHERAL VASCULAR 11/05/2025 [id number] / / [id number] Procedures Procedure Name Priority Date/Time Associated Diagnosis Comments HEPATITIS C RNA, QUANTITATIVE, PCR (GRAPH) Routine 07/09/2024 3:44 PM CDT History of hepatitis C MAMMO DIAGNOSTIC DIGITAL TOMOSYNTHESIS LEFT W CAD Routine 06/18/2024 1:36 PM CDT Abnormal mammogram COLONOSCOPY 12/27/2021 12:50 PM CDT from Last 3 Months or Most Recently Relevant to Health Maintenance Results * Hepatitis C RNA, Quantitative, PCR (graph) (07/09/2024 3:44 PM CDT) Pathologist [facility] Hepatitis C Quantitation HCV Not Detected IU/mL 07/13/2024 9:13 AM PAPER TUBE MACHINE OPERATOR [facility] Test Information Comment 07/13/20 9:13 AM PAPER TUBE MACHINE OPERATOR [facility] Comment:The quantitative ran ge of this assay is 15 IU/mL to 100 million IU/mL. Blood Venipuncture / Unknown 07/09/2024 3:44 PM CDT 07/09/2024 4:01 PM CDT Narrative [facility] - 07/13/2024 9:13 AM PAPER TUBE MACHINE OPERATOR Performed at: [address] [place] [id number] Life Insurance Agent: Manisha Alvarez MD, Phone: [phone] us Khadijah Kapadia DO LAB BLOOD ORDERABLES Final Res ult Performing Organization Address City/State/[facility] Co de Phone Number [facility] [address] [place] [address], * (ABNORMAL) Mammo Diagnostic Digital Tomosynthesis Left With CAD (06/18/2024 1:36 PM CDT) Anatomical Region Laterality Modality Breast Left Mammography 06/18/2024 1:44 PM CDT Impressions 06/18/2024 2:22 PM CDT 1. Suspicious LEFT breast distortion and mass. Recommend ultrasound-guided biopsy. 2. Normal-appearing LEFT axillary lymph nodes. Result letter will be sent to the patient including MQSA compliant breast density statement. Result and recommendation discussed with the patient in person at the conclusion of the exam. The patient is aware of the recommendation for biopsy and will be scheduled for procedure. BI-RADS CATEGORY 4: Suspicious abnormality--biopsy should be considered. Subcategory 4C: High suspicion for malignancy. Management Recommendation: Biopsy should be performed in the absence of clinical contraindication. This report was signed and finalized on 06/18/2024 2:[address] Kusum Crow MD. Narrative 06/18/2024 2:22 PM CDT EXAM: MAMMO DIAGNOSTIC DIGITAL TOMOSYNTHESIS LEFT W CAD-, US BREAST LEFT LIMITED- DATE: 06/18/2024 12:21 PM HISTORY: additional views left breast per screening mammogram; R92.8-Other abnormal and inconclusive findings on diagnostic imaging of breast COMPARISON: 06/14/2024 FAMILY HISTORY OF BREAST CANCER: Paternal grandmother. Tyrer-Cuzick lifetime risk score of 16.7 percent. NCCN guidelines for genetic testing not met. TECHNIQUE: Additional digital mammogram images were obtained. Computer Aided Detection was utilized. In addition, 15 low dose images were obtained in each projection. These low-dose images were reconstructed into slices and reviewed on the soft copy workstation. Real-time ultrasound performed with policy services representative images and report stored to PACS per institutional protocol. BREAST COMPOSITION: Category C -- The breasts are heterogeneously dense, which may obscure small masses. FINDINGS: LEFT breast 4 mm oval, equal density mass with partially circumscribed, partially obscured margins in the middle to posterior third, outer central breast 3 o'clock position, 5 cm from the nipple. LEFT breast distortion in the posterior third, outer central breast, 2-3 o'clock position, 7 cm from the nipple on cc view. Targeted LEFT breast ultrasound 3:00 position, 5 [...] character with the LEFT breast distortion described above. Targeted LEFT axillary ultrasound performed demonstrating normal-appearing lymph nodes. us Treva Ordoñez APRN IMG MAMMOGRAPHY ORDERABLES F inal Result * COLONOSCOPY (12/27/2021 12:50 PM CDT) Tamera Smith MD INTERFACE NEEDS Final Result from Last 3 Months or Most Recently Relevant to Health Maintenance Insurance [facility] MEDICAID Advance Directives * CPR (Attempt to Resuscitate) (Latest Code Status on File) Date Activated Date Inactivated Comments 07/29/2024 6:41 PM 07/30/2024 12:24 PM Question Answer Comments Code Status (Patient has no pulse and is not breathing): CPR (Attempt to Resuscitate) Medical Interventions (Patie nt has pulse or is breathing): Full Support Care Teams Dinking Machine Operator Relationship Specialty Start Date End Date Juan Luis Garza MD [address] [place], [place] [phone] PCP - General Family Medicine 03/02/25
--- OUTSIDE RECORDS SUMMARY | 2025-03-29 01:15 | XMS_ITS ---
[facility] Address [address] [place] [place] [phone] Care Team Providers Care Director Of Vocational Guidance Name Role Phone Juan Luis Garza MD Primary Care Provider Active Problems * This document contains information received from the source organization and may not represent a complete record from that organization. Problem Noted Date Diagnosed Date Neck pain [...] establish care with an oncologist here in [place] with [facility] once chemotherapy has been completed for [...] Assessment & Plan (03/04/2025 4:39 PM EDT): [place] that the trazodone 100 mg was making [...] (11/28/2021): Added automatically from request for surgery [id number] Epigastric pain 11/28/2021 Overview (07/05/2022): Endoscopy 12/2021 normal. Mucous in stools 11/28/2021 Overview (07/05/2022): Colonoscopy 12/2021 normal. Repeat colonoscopy 12/2031. Encounter for long-term (current) use of NSAIDs 11/28/2021 Overview (11/28/2021): Added automatically from request for surgery [id number] Weight loss 11/28/2021 Overview (11/28/2021): Added automatically from request for surgery [id number] Loss of appetite 11/28/2021 Overview (11/28/2021): Added automatically from request for surgery [id number] Early satiety 11/28/2021 Overview (11/28/2021): Added automatically from request for surgery [id number] Hepatitis C virus infection cured after antiviral [...] I will refer the patient to a ob/gyn doctor. Arthritis of lumbar spine 11/20/2021 Overview (11/20/2021): [...] of treatment Followup in 3 months. Headache Current Treatment and Therapy Plans OP BREAST TC DOCEtaxel / Cyclophosphamide* Plan Start Date:11/08/2024 Plan Provider:Oliverio Perscott MD Linked Problems Invasive ductal carcinoma of breast, female, leftInvasive lobular carcinoma of breast in femaleMalignant neoplasm of left breast in female, estrogen receptor positive, unspecified site of breast Treatment Medications Current Day (Day 1 , Cycle 1 - Planned for 11/29/2024) Next Day (Day 1, Cycle 2 - Planned for 12/20/2024) cyclophosphamide (CYTOXAN) chemo IVPBDOCEtaxel (TAXOTERE) chemo IVPB cycloPHOSphamide (CYTOXAN) 1,180 mg in sodium chloride 0.9 % 255.9 mL chemo IVPBDOCEtaxel 145 mg in sodium chloride 0.9 % 257.3 mL chemo IVPB cycloPHOSphamide (CYTOXAN) 1,180 mg in sodium chloride 0.9 % 255.9 mL chemo IVPBDOCEtaxel 145 mg in sodium chloride 0.9 % 257.3 mL chemo IVPB Past Treatment and Therapy Plans No past plan information found. Radiation Treatments * Course C1-Lt Breast 10/11/2024 - 12/01/2024 Treatment Period Energy Fraction Dose Fractions Total Dose Plans Planned LT_Breast 10/11/2024 - 12/01/2024 1.8 28 / 2 8 5,040 Reference Points Delivered Lt Breast 10/11/2024 - 12/01/2024 50.4 Resolved Problems Problem Noted Date Diagnosed Date Resolved Date Acute septic pulmonary embol ism without acute cor pulmonale 11/01/2017 03/02/2025
--- OUTSIDE RECORDS SUMMARY | 2025-03-29 01:15 | XMS_ITS | Encounter Summary ---
Author Organization [place] [address] Care Team Providers Care Airline Station Agent Name Role Phone Rodriguez Lindo Primary Care Provider [phone] Poli Felix RN Unavailable Unavailable Reason for Visit * Reason Onset Date Comments Symptom Call 02/07/2025 Encounter Details Date Type Department Care Team (Late st Contact Info) Description 02/07/2025 [facility]phone [facility] [place] [address] Vane Hollingsworth MD [address] [place] [address] Symptom Call Social History Tobacco Use Types [...] 3 hours as needed. 450 mL 02/07/2025 03/21/2025 documented in this encounter Miscellaneous Notes * [...] AM EDT Appointment [place] [address] 04/15/2025 9:15 AM EDT [facility]ointment [facility] [place] [address] Vane Hollingsworth MD [address] [place] [phone] documented as of this encounter Visit Diagnoses Diagnosis Malignant neoplasm of overlapping sites of left breast in female, estrogen receptor positive (HCC)- Primary documented in this encounter Care Teams Airline Station Agent Relationship Specialty Start Date End Date [facility] [address] [place] [phone] PCP - General Clinic/Center - [facility] ([facility] 12/03/16 Poli Felix, PAMELA Registered Nurse Infusion Therapy 02/01/25 02/08/25 documented as of this encounter
--- OUTSIDE RECORDS SUMMARY | 2025-03-29 01:15 | XMS_ITS | Encounter Summary ---
Author Organization [place] [address] Care Team Providers Care Belt Turner Name Role Phone Rodriguez Lindo Primary Care Provider +1- [phone] Poli Felix RN Unavailable Unavailable Reason for Visit * Reason Onset Date Comments Medication Refill 02/07/2025 Encounter Details Date Type Department Care Team (Late Contact Info) Description 02/07/2025 Refill [facility] [place] [address] Ana Rosa Del Angel, MARTÍN [address] [place] [address] Medication Refill Social History Tobacco Use Types [...] AM EDT Appointment [place] [address] 04/15/2025 9:15 AM EDT Appointment [facility] [place], [place] [phone] Vane Hollingsworth MD [address] [place] [address] [phone] documented as of this encounter Visit Diagnoses Diagnosis Encounter for antineoplastic chemotherapy documented in this encounter Care Teams Belt Turner Relationship Specialty Start Date End Date [facility] [address] [place] [address] PCP - General Clinic/Center - [facility] ([facility]) 12/03/16 Poli Felix, RN Registered Nurse Infusion Therapy 02/01/25 02/08/25 documented as of this encounter
--- OUTSIDE RECORDS SUMMARY | 2025-03-29 01:15 | XMS_ITS | Encounter Summary ---
Demographics Address [address] [phone] Mobile Phone Email Address Preferred Language en Marital Status Shinto Affiliation Unknown Race White Ethnic Group Not or Lati no Author Organization Healthcare Address [address] [id number] Care Team Providers Care Ase Master Mechanic Name Role Phone Pcp, No Primary Care [...] on filedocumented in this encounter Care Teams Ase Master Mechanic Relationship Specialty Start Date End Date Pcp, Mounika [address] [place] [address] PCP - General Family Medicine 02/07/25 documented as of this encounter
--- OUTSIDE RECORDS SUMMARY | 2025-03-29 01:15 | XMS_ITS | Clinical Summary ---
Author Organization [facility] Address [address] [place] [phone] Phone Care Team Providers Care Construction Code Administrator Name Role Phone J-old, S-old Primary Care Physician Unavailab le Conditions or Problems Problem Name Problem Code Onset Date Status Entry Date Provider Comment Standard Description Annotate PELVIC PAIN 58475599 (SNOMED CT) 01/24 Active 01/24 Hallie Brown MD Pain in pelvis URI 91890400 (SNOMED CT) 01/07 Resolved 01/07 S-old J-old Upper respiratory infection Sinusitis, acute 40813670 (SNOMED CT) 01/17 Inactive 01/17 S-old J-old Acute sinusitis Allergic rhinitis 86860753 (SNOMED CT) 01/17 Active 01/17 S-old J-old Allergic rhinitis URI 83429530 (SNOMED CT) 01/07 Removed 01/07 S-old J-old Upper respiratory infection Hepatitis C antibody, positive serology 290474380 (SNOMED CT) 01/07 Active 01/07 Beatrizselvin Sandoval CNM Hepatitis C antibody detected Pelvic pain 26933169 (SNOMED CT) 01/02 Active 01/03 Beatrizselvin Sandoval CNM Pain in pelvis STD SCREENING 216118693 (SNOMED CT) 01/02 Inactive 01/03 Beatriz Mchorocío CNM Venereal disease screening Routine gynecological examination 48085039 (SNOMED CT) 01/02 Inactive 01/02 Beatrizselvin Sandoval CNM Gynecologic examination ABDOMINAL PAIN 94631958 (SNOMED CT) 04/24 Active 04/24 Iraida Mayorga APRN Abdominal pain Medications Medication Instructions Start Date Stop Date Generic Name NDC Provider METRONIDAZOLE 500 MG TABS Take 1 tablet by mouth every 12 hours METRONIDAZOLE [id number] Hallie Brown MD AZITHROMYCIN 250 MG TABS TAKE 2 TABLETS BY MOUTH DAY 1 THEN 1 TABLET EVERYDAY DAY 2 TO 5 AZITHROMYCIN 17575160816 S-old J-old LORATADINE 10 MG TABS TAKE 1 TABLET BY MOUTH 1 TIME A DAY NEEDED FOR ALLERGIES LORATADINE 30514523835 S-old J-old BROMFED DM 30-2-10 MG/5ML ORAL SYRUP TAKE 1 TEASPOON BY MOUTH 4 TIMES A DAY NEEDED FOR COUGH PSEUDOEPH-BROMPH EN-DM 60243803603 S-old J-old Medications Administered No information available. Allergies, Adverse Reactions, Alerts Allergy Name Reaction Description Start Date Severity Statu s Provider HYDROCODONE Critical Active Iraida Morales ammarzena LEASING AGENT Results Date Name Value Unit Range Flag [...] (Affirm) Pending order Ultrasound Pending order SNOMED-CT: 34870 5838401940 Current Medications Documented Pending order Medication Recon ciliation Pending order SNOMED-CT: 41908 3000 Smoking Cessation Counseling Pending order SNOMED-CT: 03653 6181232875 Current Medications Documented Pending order Medication Recon ciliation Pending order Strep Screen 878 80 Pending order SNOMED-CT: 47563 0910759496 Current Medications Documented Pending order Hep C [...] Procedures Code Procedure Name Date Entry Date [facility]-[id number] Medication Reconciliation SCT-[id number] SNOMED-CT: 633469710 438756 Current Medications Documented OB US GEN Ultrasound 58482 [facility] # G.C. Chlamydia (lab order) 29785 [facility] # BV Yeast Trich Culture (Affirm) 201 02/10/19 SCT-[id number] Medication Reconciliation SCT-556723844 SNOMED-CT: 704581335 Smoking Cessation Counseling SCT-110144194071024 SNOMED-CT: 921214530 444984 Current Medications Documented SCT-527455532958751 Medication Reconciliation CPT-93948 Strep Screen 71169 2 SCT-393797182260898 SNOMED-CT: 680955604 859237 Current Medications Documented 799 [facility] # RPR/VDRL 14521 [facility] # BV Yeast Trich Culture (Affirm) 201 02/09/27 SCT-[id number] Medication Reconciliation 08541 [facility] Test # ThinPrep Pap w reflex HR HPV mRNA E 6/E7 8472 [facility] # [place] [address] [facility] # HIV 1/2 Antigen & An tibodies -consent required CPT-G8447 Encounter documented using a certified EH R CPT-58937 Test PU Pelvic Ultrasound Vital Signs Date [...]
[2025-03-29 01:16] VITALS: BP 119/72; PULSE 88; RESP 18; TEMP 36.3; O2SAT 100
--- OUTSIDE RECORDS SUMMARY | 2025-03-29 01:16 | XMS_ITS | Encounter Summary ---
Author Organization [place] [address] Care Team Providers Care Ap Operator Name Role Phone Rodriguez Lindo Primary Care Provider +1- [phone] Eden Noble RN Unavailable Unavailable Encounter Details Date Type Department Care Team (Late st Contact Info) Description 02/09/2025 Nutrition [facility] Medical Oncology [place] [phone] Marika Damon RD, LD Social History Tobacco [...] Estimated Nutrition Needs: kcals/day needs: 22-25 kcal/kg (4853-8666) gm protein/day needs: 1.2-1.5 gm/kg (98-122) Fluids [...] AM EDT Appointment [place] [address] 04/15/2025 9:15 AM EDT Appointment [facility] [place] [address] Vane Hollingsworth MD [address] [place] [address] documented as of this encounter Visit Diagnoses Not on filedocumented in this encounter Care Teams Ap Operator Relationship Specialty Start Date End Date [facility] [address] [place] [phone] PCP - General Clinic/Center - [facility] ([facility]) 12/03/16 Eden Noble RN Registered Nurse Infusion Therapy 02/09/25 02/09/25 documented as of this encounter
--- OUTSIDE RECORDS SUMMARY | 2025-03-29 01:16 | XMS_ITS | Encounter Summary ---
[facility] Address [address] [place] [address] Care Team Providers Care Barrel Coater Name Role Phone Avila Puri DO Primary Care Provider [phone] Reason for Visit * Reason Onset Date Comments Med Refill 02/01/2025 Encounter Details Date Type Department Care Team (Late st Contact Info) Description 02/01/2025 Refill [facility] [address] [facility] [address] [place] [address] Avila Puri DO [address] [facility] [address] [place], [place] [phone] Head lice infestation (Primary Dx) Social History Tobacco Use Types Packs/Day Years Used Date Smoking Tobacco: Former Cigarettes 0.5 29.6 0 01/17/1995 - 08/19/2024 Passive Smoke Exposure: Past Smokeless Tobacco: Never Alcohol Use Standard Drinks/Week Comments Not Currently 0 (1 standard drink = 0.6 oz pur e alcohol) 20 months sober AUDIT-C Answer Date Recorded Q1: How often [...] or training? Not on file Preferred Language Estonian 09/27/2024 PHQ-2 Answer Date Recorded Patient Health [...] Description 06/06/2025 10:30 AM EDT Office Visit [facility] [address] [place] [phone] Juan Luis Garza MD [facility] [address] [address] documented as of this encounter Visit Diagnoses Diagnosis Head lice infestation- Primary documented in this encounter Care Teams Barrel Coater Relationship Specialty Start Date End Date Avila Puri DO [address] [facility] [address] [place] [address] PCP - General Family Medicine 10/05/21 03/01/25 documented as of this encounter
--- OUTSIDE RECORDS SUMMARY | 2025-03-29 01:16 | XMS_ITS | Encounter Summary ---
[facility] Address [address] [place] [address] Care Team Providers Care Surgical Technologist Name Role Phone Avila Puri DO Primary Care Provider [phone] Reason for Visit * Reason Onset Date Comments Med Refill 01/28/2025 Encounter Details Date Type Department Care Team (Late st Contact Info) Description 01/28/2025 Refill [facility] [address] [facility] [address] [place] [address] Avila Puri DO [address] [facility] [address] [place], [place] [phone] Head lice Social History Tobacco Use Types Packs/Day Years [...] or training? Not on file Preferred Language Swedish 09/27/2024 PHQ-2 Answer Date Recorded Patient Health [...] Description 06/06/2025 10:30 AM EDT Office Visit [facility] [address] [place] [phone] Juan Luis Garza MD [address] [address] documented as of this encounter Visit Diagnoses Diagnosis Head lice Pediculus capitis (head louse) documented in this encounter Care Teams Surgical Technologist Relationship Specialty Start Date End Date Avila Puri DO [address] [facility] [address] [place] [address] PCP - General Family Medicine 10/05/21 03/01/25 documented as of this encounter
--- OUTSIDE RECORDS SUMMARY | 2025-03-29 01:16 | XMS_ITS | Encounter Summary ---
Author Organization [place] [address] Care Team Providers Care Size Roller Operator Name Role Phone Rodriguez Lindo Primary Care Provider [phone]- [phone] Poli Felix RN Unavailable Unavailable Encounter Details Date Type Department Care Team (Late st Contact Info) Description 02/03/2025 Orders Only [facility] [place], [place] [phone] Sosa Ernst, MANAGER DEPARTMENT 1 [place], [place] [phone] Malignant neoplasm of overlapping sites of left [...] this encounter Progress Notes * Sosa Ernst, MANAGER DEPARTMENT - 02/03/2025 2:27 PM EDT unscheduled office visit-02/04/25 CINV documented in this encounter Plan of Treatment Upcoming Encounters Date Type Department Care Team (Late st Contact Info) Description 04/15/2025 8:45 AM EDT Appointment [facility] [address] 04/15/2025 9:15 AM EDT Appointment [facility] [place] [address] Vane Hollingsworth MD [address] [place] [address] documented as of this encounter Results * MAGNESIUM LEVEL (02/09/2025 8:45 AM EDT) Pathologist [facility] Magnesium 2.1 1.6 - 2.4 mg/dL 02/09/2025 9:32 AM EDT [facility] Blood VENOUS STRUCTURE / Unknown Medicare Port / Unknown 02/09/2025 8:45 AM EDT 02/09/2025 8:46 AM EDT Sosa Ernst APRN CHEMISTRY ORDERABLES Ernestine l Result [facility] [address] [place] [address] * (ABNORMAL) COMPREHENSIVE METABOLIC PANEL (02/09/2025 8:45 AM EDT) Pathologist [facility] Sodium 142 136 - 145 mmol/L 02/09/2025 9:32 AM EDT [facility] Potassium 3.4(L) 3.5 - 5.0 mmol/L 02/09/2025 9:32 AM EDT [facility] Chloride 107 98 - 107 mmol/L 02/09/2025 9:32 AM EDT [facility] Total CO2 23 22 - 29 mmol/L 02/09/2025 9:32 AM EDT [facility] Anion Gap 12 7 - 16 mmol/L 02/09/2025 9:32 AM EDT [facility] Calcium 9.3 8.6 - 10.4 mg/dL 02/09/2025 9:32 AM EDT [facility] Glucose Lvl 101(H) 70 - 99 mg/dL 02/09/2025 9:32 AM EDT [facility] BUN 10 6 - 20 mg/dL 02/09/2025 9:32 AM EDT [facility] Creatinine 0.77 0.51 - 1.30 mg/dL 02/09/2025 9:32 AM EDT [facility] Albumin 4.0 3.5 - 5.2 gm/dL 02/09/2025 9:32 AM EDT [facility] Total Protein 6.3(L) 6.4 - 8.3 gm/dL 02/09/2025 9:32 AM EDT [facility] Bili Total <0.2(L) 0.2 - 1.3 mg/dL 02/09/2025 9:32 AM EDT [facility] ALT 15 <=41 U/L 02/09/2025 9:32 AM EDT [facility] AST 23 <=40 U/L 02/09/2025 9:32 AM EDT [facility] Alk Phos 109 36 - 123 U/L 02/09/2025 9:32 AM EDT [facility] eGFR (CKD-EPIcr 2020) 99 >=60 mL/min/1.7 3 m2 02/09/2025 9:32 AM EDT [facility] Comment:Estimated GFR was ca lculated using the CKD-EPIcr (2020) equation refit without race. The equation is recommended by the National Kidney Foundation - [place] Society of Nephrology Task Force. Blood VENOUS STRUCTURE / Unknown Medicare Port / Unknown 02/09/2025 8:45 AM EDT 02/09/2025 8:46 AM EDT [facility] [place] [facility] MANAGER DEPARTMENT CHEMISTRY ORDERABLES Ernestine l Result [facility] [address] [phone] * (ABNORMAL) CBC WITH DIFF (02/09/2025 8:45 AM EDT) [facility] WBC 28.7(H) 3.7 - 10.3 x10(3)/mc L 02/09/2025 9:45 AM EDT [employer] [facility] Comment:This is an appended report. These results have been appended to a previously preliminary verified report. RBC 3.12(L) 3.90 - 5.20 x10(6)/mc L 02/09/2025 9:45 AM EDT [facility] Hgb 9.6(L) 11.2 - 15.7 g/dL 02/09/2025 9:45 AM EDT [facility] Hct 29.9(L) 34.0 - 45.0 % 02/09/2025 9:45 AM EDT [facility] MCV 95.8 80.0 - 100.0 fL 02/09/2025 9:45 AM EDT [facility] MCH 30.8 26.0 - 34.0 pg 02/09/2025 9:45 AM EDT [facility] MCHC 32.1 30.7 - 35.5 g/dL 02/09/2025 9:45 AM EDT [facility] RDW 13.9 <=14.9 % 02/09/2025 9:45 AM EDT [facility] Platelet 217 155 - 369 x10(3)/mc L 02/09/2025 9:45 AM EDT [facility] MPV 9.5 8.8 - 12.5 fL 02/09/2025 9:45 AM EDT [facility] NRBC Auto % 0.8(H) <=0.0 % 02/09/2025 9:45 AM EDT [employer] [facility] Comment:This is an appended report. These results have been appended to a previously preliminary verified report. NRBC# 0.2 x10(3)/mc L 02/09/2025 9:45 AM EDT [employer] Comment:This is an appended report. These results [...] 9:45 AM EDT [facility] [place] # 2.3(H) 0.3 - 0.9 x10(3)/mc L [...] AM EDT 02/09/2025 8:46 AM EDT [place] Angella Klever MANAGER DEPARTMENT HEMATOLOGY ORDERABLES Fin al Result [facility] [address] [place] [address] [facility] [employer] [facility] [address] [facility] , [place] [address] documented in this encounter Visit Diagnoses Diagnosis Malignant neoplasm of overlapping sites of left breast in female, estrogen receptor positive (HCC)- Primary documented in this encounter Care Teams Size Roller Operator Relationship Specialty Start Date End Date [facility] [address] [place] [address] PCP - General Clinic/Center - [facility] ([facility]) 12/03/16 Poli Felix, PAMELA Registered Nurse Infusion Therapy 02/01/25 02/08/25 documented as of this encounter
--- OUTSIDE RECORDS SUMMARY | 2025-03-29 01:16 | XMS_ITS | Encounter Summary ---
[facility] Address [address] [place] [address] Care Team Providers Care Tooling Engineering Tech Name Role Phone Juan Luis Garza MD Primary Care Provider Reason for Visit * Reason Onset Date Comments Prior Authorization 03/02/2025 Encounter Details Date Type Department Care Team (Late st Contact Info) Description 03/02/2025 Telephone [facility] [address] [place] [phone] Juan Luis Garza MD [address] [place] [address] Prior Authorization Social History Tobacco Use Types Packs/Day Years [...] or training? Not on file Preferred Language Mongolian 09/27/2024 PHQ-2 Answer Date Recorded Patient Health Questionnaire-2 Score 0 10/18/2024 Comments No Sex and Gender Information Value Date Recorded Sex Assigned at Female 02/26/2025 10:23 PM EDT Legal Sex Female 10:15 PM EDT Gender Identity Not on file Sexual Orientation Straight 02/26/2025 10 :23 PM EDT documented as of this encounter Miscellaneous Notes * Telephone Encounter - Patricia Rodriguez MA - 03/04/2025 10:58 AM EDT Outcome Approved on March 03 by [place] [employer] Med[employer]act 2017 The request has been approved. The authorization is effective from 03/03/2025 to 03/03/2026, as long as the member is enrolled in their current health plan. The request was reviewed and approved by alicensed clinical pharmacist. A written notification letter will follow with additional details. Effective Date: 03/03/2025 Authorization Expiration Date: 03/03/2026 * Telephone Encounter - Patricia Rodriguez MA - 03/03/2025 10:06 AM EDT Rubi: [id number] Was sent to the insurance with question answered. Waiting on response. * Telephone Encounter - Tisha Mackenzie RegSched Rep - 03/02/2025 4:21 PM EDT Fax notification received that PA has been started for Oxycodone (rubi [id number]) * Telephone Encounter - Tisha Mackenzie RegSched Rep - 03/02/2025 4:08 PM EDT PA request received from pharmacy for Oxycodone. Request indexed to chart documented in this encounter Plan of Treatment Upcoming Encounters Date Type Department Care Team (Late st Contact Info) Description 06/06/2025 10:30 AM EDT Office Visit [facility] [address] [place] [phone] Juan Luis Garza MD [address] [place] [address] documented as of this encounter Visit Diagnoses Not on filedocumented in this encounter Care Teams Tooling Engineering Tech Relationship Specialty Start Date End Date Juan Luis Garza MD [address] [place] [address] PCP - General Family Medicine 03/02/25 documented as of this encounter
--- OUTSIDE RECORDS SUMMARY | 2025-03-29 01:16 | XMS_ITS | Encounter Summary ---
Author Organization [place] [address] Care Team Providers Care Painter Spring Name Role Phone Rodriguez Lindo Primary Care Provider +1- [phone] Poli Felix RN Unavailable Unavailable Encounter Details Date Type Department Care Team (Late st Contact Info) Description 02/03/2025 Nutrition Cancer Care Medical Oncology [place] [phone] Marika Damon RD,JOSÉ MIGUEL Social History Tobacco [...] AM EDT Appointment [facility] [place], [place] [phone] 04/15/2025 9:15 AM EDT Appointment [facility] [place] [address] Vane Hollingsworth MD [address] [place] [address] [phone] documented as of this encounter Visit Diagnoses Not on filedocumented in this encounter Care Teams Painter Spring Relationship Specialty Start Date End Date [facility] [address] [place] [address] PCP - General Clinic/Center - [facility] 12/03/16 Poli Felix RN Registered Nurse Infusion Therapy 02/01/25 02/08/25 documented as of this encounter
--- OUTSIDE RECORDS SUMMARY | 2025-03-29 01:16 | XMS_ITS | Encounter Summary ---
[facility] Organization [facility] Address [address] [place] [phone] Care Team Providers Care Records Analysis Manager Name Role Phone Juan Luis Garza MD Primary Care Provider Encounter Details Date Type Department Care Team (Latest Contact Info) Description 03/02/2025 Travel Social History Tobacco Use Types Packs/Day [...] or training? Not on file Preferred Language Martiniquais 09/27/2024 PHQ-2 Answer Date Recorded Patient Health [...] AM EDT Office Visit [facility] [address] [place] [phone] Juan Luis Garza MD [address] [place] [address] documented as of this encounter Visit Diagnoses Not on filedocumented in this encounter Care Teams Records Analysis Manager Relationship Specialty Start Date End Date Juan Luis Garza MD [address] [place] [phone] PCP - General Family Medicine 03/02/25 documented as of this encounter
--- OUTSIDE RECORDS SUMMARY | 2025-03-29 01:16 | XMS_ITS | Clinical Summary ---
Author Organization [facility] LIONELScott SHERLY Address [address] [place] [address] Phone Care Team Providers Care Roof Fixer Name Role Phone Rodriguez Lindo Primary Care Provider +1- [phone] Vane Hollingsworth MD Unavailable +1- [phone] Allergies Active Allergy Reactions Criticality Noted Date [...] tablets daily. 30 Tablet 2 5 Active LICE TREATMENT 1 % Top Liquid APPLY TOPICALLY TO AREA FOR 1 DOSE 5 Active oxyCODONE-acetamin ophen (PERCOCET) 10-325 mg Oral TabletIndications: Low back pain, unspecified back pain laterality, unspecified chronicity, unspecified whether sciatica present Take 1 Tablet by mouth every 6 hours as needed for Chronic Pain (G89.29). Do not fill before 02/13 date. 76 Tablet 5 Active Magic Mouthwash (Lido/Diph/Nystat) oral compoundIndication s:Malignant neoplasm of overlapping sites of left breast in female, estrogen receptor positive (HCC) Take 10-20 mL by mouth every 3 hours as needed. 450 mL 5 03/21/20 26 Active Active Problems Problem Noted Date Diagnosed [...] EDT - 03/21/2025 2:20 AM EDT Emergency [facility] [place] [address] Lupe Finney MD Chest pain, unspecified type (Primary Dx); Left against medical advice Discharge Disposition: Left Against Medical Advice 03/18/2025 9:30 AM EDT - 03/18/2025 11:59 PM EDT Hospital Encounter [facility] [place] [address] Malignant neoplasm of overlapping sites of left breast in female, estrogen receptor positive (HCC) (Primary Dx) Discharge Disposition: Home or Self Care 03/16/2025 8:22 AM EDT - 03/16/2025 11:59 PM EDT [facility] [place] [address] Ana Rosa Del Angel, MARTÍN Malignant neoplasm of overlapping sites of left breast in female, estrogen receptor positive (HCC) (Primary Dx); Encounter for antineoplastic chemotherapy Discharge Disposition: Home or Self Care 03/16/2025 8:13 AM EDT - 03/16/2025 8:21 AM EDT [facility] [place] [address] Malignant neoplasm of overlapping sites of left breast in female, estrogen receptor positive (HCC) (Primary Dx) Discharge Disposition: Home or Self Care 03/16/2025 8:12 AM EDT Hospital [place] [address] Malignant neoplasm of overlapping sites of left breast in female, estrogen receptor positive (HCC) (Primary Dx) Discharge Disposition: Home or Self Care 02/22/2025 1:14 PM EDT - 02/22/2025 11:59 PM EDT Hospital [place] [address] Malignant neoplasm of overlapping sites of left breast in female, estrogen receptor positive (HCC) (Primary Dx) Discharge Disposition: Home or Self Care 02/21/2025 9:20 AM EDT - 02/21/2025 11:59 PM EDT Hospital [place] [address] Malignant neoplasm of overlapping sites of left breast in female, estrogen receptor positive (HCC) (Primary Dx) Discharge Disposition: Home or Self Care 02/21/2025 8:27 AM EDT - 02/21/2025 9:19 AM EDT Hospital Encounter [facility] [place] [address] Vane Hollingsworth MD Malignant neoplasm of overlapping sites of left breast in female, estrogen receptor positive (HCC) (Primary Dx) Discharge Disposition: Home or Self Care 02/21/2025 8:13 AM EDT - 02/21/2025 8:26 AM EDT Hospital Encounter [place] [address] Malignant neoplasm of overlapping sites of left breast in female, estrogen receptor positive (HCC) (Primary Dx) Discharge Disposition: Home or Self Care 02/14/2025 11:04 AM EDT - 02/14/2025 11:59 PM EDT Hospital Encounter [facility] [place] [address] Malignant neoplasm of overlapping sites of left breast in female, estrogen receptor positive (HCC) (Primary Dx) Discharge Disposition: Home or Self Care 02/14/2025 10:51 AM EDT - 02/14/2025 11:03 AM EDT Hospital Encounter [place] [address] Malignant neoplasm of overlapping sites of left breast in female, estrogen receptor positive (HCC) (Primary Dx); Antineoplastic chemotherapy induced anemia Discharge Disposition: Home or Self Care 02/09/2025 9:00 AM EDT - 02/09/2025 11:59 PM EDT Hospital [place] [address] Malignant neoplasm of overlapping sites of left breast in female, estrogen receptor positive (HCC) (Primary Dx) Discharge Disposition: Home or Self Care 02/09/2025 8:30 AM EDT - 02/09/2025 8:59 AM EDT Hospital Encounter [facility] [place] [address] Ana Rosa Del Angel APRN Antineoplastic chemotherapy induced anemia (Primary Dx) Discharge Disposition: Home or Self Care 02/09/2025 8:15 AM EDT - 02/09/2025 8:29 AM EDT Hospital Encounter [place] [address] Malignant neoplasm of overlapping sites of left breast in female, estrogen receptor positive (HCC) (Primary Dx) Discharge Disposition: Home or Self Care 02/09/2025 Refill [facility] [place] [address] Ana Rosa Del Angel APRN Medication Refill 02/09/2025 Nutrition [facility] [place], [place] [id number] Marika Damon RD,LD 02/07/2025 Refill [facility] [place], [place] [id number] Ana Rosa Del Angel APRN Medication Refill 02/07/2025 Telephone [facility] [place], [place] [id number] Vane Hollingsworth MD Symptom Call 02/03/2025 Orders [place] [address] Sosa Ernst APRN Malignant neoplasm of overlapping sites of left breast in female, estrogen receptor positive (HCC) (Primary Dx) 02/03/2025 [facility] [place] [address] Marika Damon, RD,LD 02/02/2025 1:30 PM EDT - 02/02/2025 11:59 PM EDT Hospital Encounter [place] [address] Malignant neoplasm of overlapping sites of left breast in female, estrogen receptor positive (HCC) (Primary Dx) Discharge Disposition: Home or Self Care 02/01/2025 9:08 AM EDT - 02/01/2025 11:59 PM EDT Hospital Encounter [place] [address] Malignant neoplasm of overlapping sites of left breast in female, estrogen receptor positive (HCC) (Primary Dx) Discharge Disposition: Home or Self Care 02/01/2025 8:26 AM EDT - 02/01/2025 9:07 AM EDT Hospital Encounter [place] [address] Ana Rosa Del Angel APRN Malignant neoplasm of overlapping sites of left breast in female, estrogen receptor positive (HCC) (Primary Dx); Encounter for antineoplastic chemotherapy; Other insomnia Discharge Disposition: Home or Self Care 02/01/2025 8:00 AM EDT - 02/01/2025 8:25 AM EDT Hospital Encounter [place] [address] Malignant neoplasm of overlapping sites of left breast in female, estrogen receptor positive (HCC) (Primary Dx) Discharge Disposition: Home or Self Care 02/01/2025 Social Work [facility] Cancer [facility] [place] [address] Teresa Parrish, SENIOR APPLICATIONS ANALYST 01/19/2025 Social Work [facility] [place] [address] Sekou Berrios, SENIOR APPLICATIONS ANALYST 01/14/2025 2:40 PM EDT - 01/14/2025 11:59 PM EDT Hospital Encounter [place] [address] Malignant neoplasm of overlapping sites of left breast in female, estrogen receptor positive (HCC) (Primary Dx); Low back pain, unspecified back pain laterality, unspecified chronicity, unspecified whether sciatica present Discharge Disposition: Home or Self Care 01/14/2025 11:30 AM EDT - 01/14/2025 2:39 PM EDT Hospital En[facility] [place], [place] [id number] Vane Hollingsworth MD Malignant neoplasm of overlapping sites of left breast in female, estrogen receptor positive (HCC) (Primary Dx); Low back pain, unspecified back pain laterality, unspecified chronicity, unspecified whether sciatica present Discharge Disposition: Home or Self Care 01/14/2025 Social Work [facility] Cancer Care [facility] [place] [address] Teresa Parrish MSW 01/14/2025 Telephone [facility] [address] [address] Khadijah Garza, Fund Director New Patient 01/11/2025 Telephone [facility] [place], [place] [id number] Vane Hollingsworth MD Schedule Appointment (Consult) from [...] AM EDT Appointment [place] [address] 04/15/2025 9:15 AM EDT Appointment [facility] [place] [address] Vane Hollingsworth MD [address] [place] [address] Health Maintenance Due Date Last Done Comments [...] 12 LEAD STAT 03/21/2025 1:40 AM EDT COMPREHENSIVE METABOLIC PANEL STAT 03/16/2025 8:20 AM [...] present from Last 3 Months Results * SCANNED EKG (03/22/2025 11:04 AM EDT) Anatomical Region Laterality Modality Other 03/22/2025 11:0 4 AM EDT Unknown Provider IMG ECG ORDERABLES Final Result * LACTIC ACID (03/21/2025 2:07 AM EDT) Lactic Acid 1.1 0.5 - 1.9 mmol/L 03/21/2025 2:26 AM EDT [facility] VENOUS BLOOD / Unknown Venipuncture / Unknown 03/21/2025 2:07 AM EDT 03/21/2025 2:07 AM EDT Martin Cassidy REFERRAL SPECIALIST CHEMISTRY ORDERABLES Final Res ult Performing Organization Address [facility] Co de Phone Number [employer] [address] [place] [address] , [place] [address] * TROPONIN-T HIGH SENSITIVITY BASELINE W/ REFLEX (03/21/2025 2:06 AM EDT) Pathologist [facility] ef-cTeuqqwfr-O <6 <14 ng/L 03/21/2025 2:29 AM EDT [facility] VENOUS BLOOD / Unknown Venipuncture / Unknown 03/21/2025 2:06 AM EDT 03/21/2025 2:06 AM EDT Narrative [facility] - 03/21/2025 2:29 AM EDT Ingestion of manda doses of biotin (>5 mg/day) taken within 8 hours of drawing blood sample can interfere with this immunoassay test. Martin Cassidy REFERRAL SPECIALIST CHEMISTRY ORDERABLES Final Res ult Performing Organization Address [facility]/ZIP Co de Phone Number [facility] [address] [facility] , [place] [address] * (ABNORMAL) CBC WITH DIFF (03/21/2025 2:06 [...] 2:36 AM EDT [facility] [place] # 0.2(L) 0.3 - 0.9 x10(3)/mcL 03/21/2025 [...] ORDERABLES Final Re sult [facility] [address] [facility] , [place] [address] * (ABNORMAL) COMPREHENSIVE METABOLIC PANEL (03/21/2025 2:06 [...] 03/21/2025 2:29 AM EDT [facility] Calcium 9.0 8.6 - 10.4 mg/dL 03/21/2025 2:29 AM EDT [facility] Glucose Lvl 89 70 - 99 mg/dL 03/21/2025 2:29 AM EDT [facility] BUN 12 6 - 20 mg/dL 03/21/2025 2:29 AM EDT [facility] Creatinine 0.69 0.51 - 1.30 mg/dL 03/21/2025 2:29 AM EDT [facility] Albumin 4.0 3.5 - 5.2 gm/dL 03/21/2025 2:29 AM EDT [facility] Total Protein 6.2(L) 6.4 - 8.3 gm/dL 03/21/2025 2:29 AM EDT [facility] Bili Total 0.3 0.2 - 1.3 mg/dL 03/21/2025 2:29 AM EDT [facility] ALT 14 <=41 U/L 03/21/2025 2:29 AM EDT [facility] AST 16 <=40 U/L 03/21/2025 2:29 AM EDT [facility] Alk Phos 95 36 - 123 U/L 03/21/2025 2:29 AM EDT [facility] eGFR (CKD-EPIcr 2020) 111 >=60 mL/min/1.7 3 m2 03/21/2025 2:29 AM EDT [facility] Comment:Estimated GFR was ca lculated using the CKD-EPIcr (2020) equation refit without race. The equation is recommended by the National Kidney Foundation - [place] [employer] Nephrology Task Force. Blood VENOUS BLOOD / Unknown Venipuncture / Unknown 03/21/2025 2:06 AM EDT 03/21/2025 2:06 AM EDT us Martin Cassidy NP CHEMISTRY ORDERABLES Final Res ult [facility] [address] [facility] , [address] [place] [id number] * EK EKG 12 LEAD (03/21/2025 1:40 AM EDT) Anatomical Region Laterality Modality Electrocardiogra phy 03/21/2025 1:47 AM EDT Impressions 03/21/2025 2:[address] Test Date: 2025-03-21 Pat Name: [facility] Department: [facility] Room: 09 Gender: Female Cupola Liner Helper: : 1985 Requested By: MARTIN CASSIDY Order Number: [id number] Reading MD: Juan Corona MD Measurements Intervals [place] Rate: 87 P: 30 WV: 148 QRS: 52 QRSD: 96 T: 49 QT: 362 QTc: 438 Interpretive Statements SINUS RHYTHM Electronically Signed On 03-21-2025 14:36:14 EDT by Juan Corona MD Narrative Procedure Note Juan Corona MD - 03/21/[address] Test Date: 2025-03-21 Pat Name: [facility] Department: [facility] Room: 09 Gender: Female Cupola Liner Helper: : 1985 Requested By: MARTIN CASSIDY Order Number: [id number] Reading MD: Juan Corona MD Measurements Intervals [place] Rate: 87 P: 30 WV: 148 QRS: 52 QRSD: 96 T: 49 QT: 362 QTc: 438 Interpretive Statements SINUS RHYTHM Electronically Signed On 03-21-2025 14:36:14 EDT by Juan Corona MD Martin Cassidy REFERRAL SPECIALIST IMG ECG ORDERABLES Final Resul t * (ABNORMAL) RETICULOCYTE PANEL DIAGNOSTIC (02/14/2025 11:01 AM EDT) Retic Cnt Auto 3.9(H) 0.9 - 2.5 % 02/14/2025 11:15 AM EDT [facility] [employer] Retic # 135.5(H) 40.0 - 110.0 x10(3)/mcL 02/14/2025 11:15 AM EDT [facility] Retic Fraction % 29.1(H) 3.1 - 17.6 % 02/14/2025 11:15 AM EDT [facility] Retic Hgb 35.1 28.0 - 38.0 pg 02/14/2025 11:15 AM EDT [facility] Blood VENOUS STRUCTURE / Unknown Port / Unknown 02/14/2025 11:01 AM EDT 02/14/2025 11:04 AM EDT Narrative [facility] - 02/14/2025 11:15 AM EDT Reticulocyte [...] 142:506-512. (4)Goodnojack, L., et al. 2010. Blood 116:[id number]. Ana Rosa Del Angel APRN HEMATOLOGY ORDERABLES Ernestine pinedo Result [facility], [facility] [address] [facility] , [address] [place] [id number] * IRON+TIBC (02/14/2025 11:01 AM EDT) Iron 63 30 - 160 mcg/dL 02/14/2025 12:[address] [facility], [facility] Transferrin 205 200 - 360 mg/dL 02/14/2025 12:[address] [facility], [facility] Transferrin Saturation 22 20 - 50 % 02/14/2025 12:[address] [facility], [facility] TIBC 287 250 - 400 mcg/dL 02/14/2025 12:02 PM EDT [facility] Blood VENOUS STRUCTURE / Unknown Port / Unknown 02/14/2025 11:01 AM EDT 02/14/2025 11:04 AM EDT [facility] Jose Guadalupe'Onur WATER PUMP SERVICER CHEMISTRY ORDERABLES Final Result Performing Organization Address [facility] Co de Phone Number [facility] [address] [facility] , [place] [address] * FERRITIN (02/14/2025 11:01 AM EDT) Ferritin 144 30 - 150 ng/mL 02/14/2025 12:02 PM EDT [facility] Comment:The lower threshold of 30 is [...] AM EDT 02/14/2025 11:04 AM EDT Narrative [facility] - 02/14/2025 12:02 PM EDT Ingestion of manda doses of biotin (>5 mg/day) taken within 8 hours of drawing blood sample can interfere with this immunoassay test. Ana Rosa L O'Onur WATER PUMP SERVICER CHEMISTRY ORDERABLES Final Result Performing Organization Address [facility] Co de Phone Number [facility] [address] [facility] , [place] [address] * MAGNESIUM LEVEL (02/09/2025 8:45 AM EDT) Magnesium 2.1 1.6 - 2.4 mg/dL 02/09/2025 9:32 AM EDT [facility] Blood VENOUS STRUCTURE / Unknown Medicare Port / Unknown 02/09/2025 8:45 AM EDT 02/09/2025 8:46 AM EDT us [facility] WATER PUMP SERVICER CHEMISTRY ORDERABLES Ernestine l Result [facility] [address] [place] [address] from Last 3 Months Insurance MDR Advance Directives For more information, please contact: [phone] * Full Code (Latest Code Status on File) Date Activated Date Inactivated Comments 11/01/2017 4:31 PM 11/04/2017 6:30 PM Care Teams Roof Fixer Relationship Specialty Start Date End Date Rodriguez Lindo [address] [place] [phone] PCP - General Clinic/Center - [facility] ([facility]) 12/03/16 Vane Hollingsworth MD [address] [place] [address] Internal Medicine-Hematology and Oncology 02/21/25
--- OUTSIDE RECORDS SUMMARY | 2025-03-29 01:16 | XMS_ITS | Encounter Summary ---
[facility] Organization [facility] Address [address] [place] [id number] Care Team Providers Care Numberer And Wirer Name Role Phone Juan Luis Garza MD Primary Care Provider Encounter Details Date Type Department Care Team (Late st Contact Info) Description 03/02/2025 Telephone [facility] [address] [place] [phone] Juan Luis Garza MD [address] [place] [address] Social History Tobacco Use Types Packs/Day Years [...] or training? Not on file Preferred Language Malay 09/27/2024 PHQ-2 Answer Date Recorded Patient Health Questionnaire-2 Score 0 10/18/2024 Comments No Sex and Gender Information Value Date Recorded Sex Assigned at Female 02/26/2025 10:23 PM EDT Legal Sex Female 10:15 PM EDT Gender Identity Not on file Sexual Orientation Straight 02/26/2025 10 :23 PM EDT documented as of this encounter Progress Notes * Jeremy Kidd LPN - 03/03/2025 9:52 AM EDTAddended by: JEREMY KIDD on: 03/03/2025 09:52 AM Modules accepted: Orders documented in this encounter Miscellaneous Notes * Telephone Encounter - Jeremy Kidd LPN - 03/03/2025 9:53 AM EDT All meds have been forwarded to [facility] on [address] * Telephone Encounter - Laurie Saleh RegSched Rep - 03/02/2025 4:15 PM EDT Patients called in requesting that her prescriptions that were sent in today be sent to [facility] [address] in [facility] instead due to her insurance. Please advise thank you documented in this encounter Plan of Treatment Upcoming Encounters Date Type Department Care Team (Late st Contact Info) Description 06/06/2025 10:30 AM EDT Office Visit [facility] [address] [phone] Juan Luis Garza MD [address] [place] [address] documented as of this encounter Visit Diagnoses Diagnosis Pulmonary emphysema, unspecified emphysema type Insomnia, unspecified type Depression with anxiety Dysthymic disorder documented in this encounter Care Teams Numberer And Wirer Relationship Specialty Start Date End Date Juan Luis Garza MD [address] [place] [phone] PCP - General Family Medicine 03/02/25 documented as of this encounter
--- OUTSIDE RECORDS SUMMARY | 2025-03-29 01:16 | XMS_ITS | Encounter Summary ---
Author Organization [place] [address] Care Team Providers Care Reeling Machine Setup Operator Name Role Phone Rodriguez Lindo Primary Care Provider [phone]- [phone] Eden Noble RN Unavailable Unavailable Reason for Visit * Reason Onset Date Comments Medication Refill 02/09/2025 Encounter Details Date Type Department Care Team (Late st Contact Info) Description 02/09/2025 Refill [facility] [place] [address] Ana Rosa Del Angel, MARTÍN [address] [place] [address] Medication Refill Social History Tobacco Use Types [...] AM EDT Appointment [place] [address] 04/15/2025 9:15 AM EDT [facility]ointment [facility] [place] [address] Vane Hollingsworth MD [address] [place] [phone] documented as of this encounter Visit Diagnoses [...] documented as of this encounter Care Teams Reeling Machine Setup Operator Relationship Specialty Start Date End Date Rodriguez Lindo [address] [place] [phone] PCP - General Clinic/Center - [facility] ([facility]) 12/03/16 Eden Noble, RN Registered Nurse Infusion Therapy 02/09/25 02/09/25 documented as of this encounter
--- OUTSIDE RECORDS SUMMARY | 2025-03-29 01:16 | XMS_ITS | Clinical Summary ---
Author Organization [facility] Address [address] [facility] [address] [place] [address] Care Team Providers Care Funeral Professional Name Role Phone Jaxson Cole MD, Avila Hoskins Primary Care Provider Social History Tobacco Use Types Packs/Day Years Used Date Smoking Tobacco: Never Assessed Comments Unknown Sex and Gender Information Value Date Recorded Sex Assigned at Not on file Legal Sex Female 5:51 PM EST Gender Identity Not on file Sexual Orientation Not on file Plan of Treatment Health Maintenance Due Date Last Done Comments HIV Screening 1985 Hepatitis C Screening 1985 MMR Vaccines (1 of 1 - Standard series) 01/29/1985 Varicella Vaccines (1 of 2 - 13+ 2-dose series) 01/29/1997 Hepatitis B Screening 01/29/2002 DTaP/Tdap/Td Vaccines (1 - Tdap) 01/29/2003 Hepatitis A Vaccines (1 of 2 - Risk 2-dose series) 01/29/2003 Hepatitis B Vaccines (1 of 3 - 19+ 3-dose series) 01/29/2003 HPV/Cotest 01/29/2014 COVID-19 Vaccine (2023-2 5 season) 2024 Depression Risk Screening 09/08/2024 SDOH Screening 09/08/2024 Influenza Vaccine (#1) 2025 , 10/06/2023 Cervical Cancer Screening 04/22/2027 Diabetes Screening 04/22/2027 04/22/2024, 06/28/2021 Pap Smear 04/22/2027 04/22/2024 Zoster Vaccines (1 of 2) 01/29/2034 Mammogram Discontinued 06/21/2024, 06/18/2024, 06/14/2024 HIB Vaccines Aged Out No longer eligi ble based on patient's age to complete this topic HPV Vaccines Aged Out No longer eligi ble based on patient's age to complete this topic IPV Vaccines Aged Out No longer eligi ble based on patient's age to complete this topic Meningococcal B Vaccine Aged Out No l onger eligible based on patient's age to complete this topic Meningococcal Vaccine Aged Out No shiloh chay eligible based on patient's age to complete this topic Pneumococcal Vaccine Aged Out No long er eligible based on patient's age to complete this topic Rotavirus Vaccines Aged Out No longer eligible based on patient's age to complete this topic [place] [employer] Care Teams Funeral Professional Relationship Specialty Start Date End Date Avila Puri Jr., MD [address] [place] [phone] PCP - General Family Medicine 09/08/24
--- OUTSIDE RECORDS SUMMARY | 2025-03-29 01:16 | XMS_ITS | Encounter Summary ---
Author Organization [facility] [address] Care Team Providers Care Stitch Rubber Name Role Phone Rodriguez Lindo Primary Care Provider [phone]- [phone] Poli Felix RN Unavailable Unavailable Encounter Details Date Type Department Care Team (Late st Contact Info) Description 02/01/2025 Social Work [facility] Cancer Care [facility] Dr. Dominguez, [facility] Teresa Parrish, [facility] Social History Tobacco Use Types Packs/Day Years [...] 02/01/2025 8:00 AM Laisha Bee MA * [place] Suicide Severity Rating Scale (Q shift for [...] - 02/01/2025 10:54 AM EDT 02/01/25 1052 Fuel Storage Technician Assessment Referred By Patient request Disease/[place] [employer] Superintendent Assignment Breast cancer Referral Location: Infusion Reason for Referral Financial Identified Needs Adjustment to illness;Education/Information;Food Insecurity;Financial issues Social Work Interventions Brief Couseling/Support;Education/Information;Financial/Shaw;Community Re ferral;Nourish COMMERCIAL CREDIT REVIEWER met with Patient in infusion - Patient continues to struggle financially and is residing with her son in [place]. Patient will visit [facility] today while in [place]. COMMERCIAL CREDIT REVIEWER communicated with Deirdre from [facility] and Patient can be serviced with food delivery through [facility]. COMMERCIAL CREDIT REVIEWER sent referral. COMMERCIAL CREDIT REVIEWER also completed [employer] referral to assist Patient financially to offset fuel costs. COMMERCIAL CREDIT REVIEWER following. documented in this encounter Plan of Treatment Upcoming Encounters Date Type Department Care Team (Late st Contact Info) Description 04/15/2025 8:45 AM EDT Appointment [place] [address] 04/15/2025 9:15 AM EDT Appointment [facility] [place] [address] Vane Hollingsworth MD [address] [place] [phone] documented as of this encounter Visit Diagnoses Not on filedocumented in this encounter Care Teams Stitch Rubber Relationship Specialty Start Date End Date [facility] [address] [place] [phone] PCP - General Clinic/Center - [facility] ([facility]) 12/03/16 Poli Felix, PAMELA Registered Nurse Infusion Therapy 02/01/25 02/08/25 documented as of this encounter
--- OUTSIDE RECORDS SUMMARY | 2025-03-29 01:16 | XMS_ITS | Encounter Summary ---
[facility] Organization [facility] Address [address] [place] [address] Care Team Providers Care Enterprise Application Developer Name Role Phone Juan Luis Garza MD Primary Care Provider Reason for Visit * Reason Onset Date Comments Med Refill 08/09/2024 Encounter Details Date Type Department Care Team (Late st Contact Info) Description 08/09/2024 Refill [facility] [address] [facility] [address] [place] [address] Avila Puri, [address] [facility] [address] [place] [phone] Postoperative pain Social History Tobacco Use Types Packs/Day Years Used Date Smoking Tobacco: Every Day Cigarettes 0.5 30.2 Started: 01/17/1995 Smokeless Tobacco: Never Alcohol Use Standard Drinks/Week [...] Feels Unsafe at Home or Work/School no 07/29/2024 Feels Threatened by Someone no 07/10 Does Anyone Try to Keep You From Having Contact with Others or Doing Things Outside Your Home? no 07/29/2024 Physical Signs of Abuse Present no 07/29/2024 Housing Stability Answer Date Recorded Current Living Arrangements home 07/10 Potentially Unsafe Housing Conditions Not on rosaline e 07/29/2024 Disabilities Answer Date Recorded Difficulty Concentrating, Remembering or Making Decisions no 07/29/2024 Difficulty Managing Errands Independently no 07/29/2024 PHQ-2 Answer Date Recorded Retired PHQ-9: Brief Depression Severity Measure Score 0 04/22/2024 Comments No Sex and Gender Information Value Date Recorded Sex Assigned at Female 02/26/2025 10:23 PM EDT Legal Sex Female 10:15 PM EDT Gender Identity Not on file Sexual Orientation Straight 02/26/2025 10 :23 PM EDT documented as of this encounter Plan of Treatment Upcoming Encounters Date Type Department Care Team (Late st Contact Info) Description 06/06/2025 10:30 AM EDT Office Visit [facility] [address] [place] [phone] Juan Luis Garza MD [address] [place] [address] documented as of this encounter Visit Diagnoses Diagnosis Postoperative pain Other acute postoperative pain documented in this encounter Care Teams Enterprise Application Developer Relationship Specialty Start Date End Date Juan Luis Garza MD [address] [place] [address] PCP - General Family Medicine 03/02/25 documented as of this encounter
--- OUTSIDE RECORDS SUMMARY | 2025-03-29 01:16 | XMS_ITS ---
Author Organization [facility] Address [address] [place] [address] Phone Care Team Providers Care Boatbuilder Wood Name Role Phone Rodriguez Lindo Primary Care Provider +1- [phone] Vane Hollingsworth MD Unavailable +1- [phone] Active Problems Problem Noted Date Diagnosed Date [...] Treatment Medications Discontinue Reason Plan Provider [facility] Supportive Care Hyperemesis and Dehydration 02/09/2025 02/24/2025 No medications scheduled. Reorder Vane Hollingsworth MD 1 of 2 cycles started
--- OUTSIDE RECORDS SUMMARY | 2025-03-29 01:16 | XMS_ITS | Encounter Summary ---
[facility] Organization [facility] Address [address] [place] [address] Care Team Providers Care Statement Clerks Supervisor Name Role Phone Avila Puri DO Primary Care Provider [phone] Reason for Visit * Reason Onset Date Comments Med Refill 01/28/2025 Encounter Details Date Type Department Care Team (Late st Contact Info) Description 01/28/2025 Refill [facility] [address] [facility] [address] [place] [address] Avila Puri DO [address] [facility] [address] [place], [place] [phone] Head lice (Primary Dx) Social History Tobacco Use Types [...] or training? Not on file Preferred Language Tamazight 09/27/2024 PHQ-2 Answer Date Recorded Patient Health [...] Description 06/06/2025 10:30 AM EDT Office Visit [facility] [address] [place] [phone] Juan Luis Garza MD [address] [place] [address] documented as of this encounter Visit Diagnoses Diagnosis Head lice- Primary Pediculus capitis (head louse) documented in this encounter Care Teams Statement Clerks Supervisor Relationship Specialty Start Date End Date Avila Puri DO [address] [place] [address] [place] [address] PCP - General Family Medicine 10/05/21 03/01/25 documented as of this encounter
--- OUTSIDE RECORDS SUMMARY | 2025-03-29 01:17 | XMS_ITS | Encounter Summary ---
Demographics Address [address] [place] [address] Mobile Phone Email Address Preferred Language en Marital Status Holiness Affiliation Unknown Race White Ethnic Group Not or Lati no Author Organization Healthcare Address [address] [place] [address] Care Team Providers Care Inserting Press Operator Name Role Phone Pcp, No Primary [...] on filedocumented in this encounter Care Teams Inserting Press Operator Relationship Specialty Start Date End Date Pcp, No [address] [place] [address] PCP - General Family Medicine 02/07/25 documented as of this encounter
--- OUTSIDE RECORDS SUMMARY | 2025-03-29 01:17 | XMS_ITS | Encounter Summary ---
Demographics Address [address] [place] [address] Mobile Phone Email Address Preferred Language en Marital Status Anglican Affiliation Unknown Race White Ethnic Group Not or Lati no Author Organization [facility] Address [address] [place] [address] Care Team Providers Care Dielectric Testing Machine Operator Name Role Phone Pcp, No Primary Care Provider Unavailabl e Encounter Details Date Type Department Care Team (Late st Contact Info) Description 02/07/2025 Patient Outreach [facility] Medicine Specialties [address] [place] [phone] Boni Anna Social History Tobacco Use Types [...] on filedocumented in this encounter Care Teams Dielectric Testing Machine Operator Relationship Specialty Start Date End Date Pcp, No [address] [place] [address] PCP - General Family Medicine 02/07/25 documented as of this encounter
--- OUTSIDE RECORDS SUMMARY | 2025-03-29 01:17 | XMS_ITS | Encounter Summary ---
[facility] Organization [facility] Address [address] [place] [address] Care Team Providers Care Charger Operator Helper Name Role Phone Juan Luis Garza MD Primary Care Provider [phone] Reason for Visit * Reason Onset Date Comments Med Refill 06/17/2023 Encounter Details Date Type Department Care Team (Late st Contact Info) Description 06/17/2023 Refill [facility] [address] [facility] [address] [place] [address] Avila Puri, [address] [place] [address] Bilateral low back pain, unspecified chronicity, unspecified whether sciatica present Social History Tobacco Use Types Packs/Day Years [...] 0 11/08/2021 Abuse Screen Answer Date Recorded Unsafe at Home or Work/School Not on file Feels Threatened by Someone? Not on file 05/2023 Does Anyone Keep You from Co ntacting Others or Doint Things Outside the Home? Not on file 06/16/2023 Physical Sign of Abuse Present Not on file 1 Comments No Sex and Gender Information Value Date Recorded Sex Assigned at Female 02/26/2025 10:23 PM EDT Legal Sex Female 10:15 PM EDT Gender Identity Not on file Sexual Orientation Straight 02/26/2025 10 :23 PM EDT documented as of this encounter Plan of Treatment Upcoming Encounters Date Type Department Care Team (Late st Contact Info) Description 06/06/2025 10:30 AM EDT Office Visit [facility] [address] [place] [phone] Juan Luis Garza MD [address] [place] [address] documented as of this encounter Visit Diagnoses Diagnosis Bilateral low back pain, unspecified chronicity, unspecified whether sciatica present documented in this encounter Care Teams Charger Operator Helper Relationship Specialty Start Date End Date Juan Luis Garza MD [address] [place] [address] PCP - General Family Medicine 03/02/25 documented as of this encounter
--- OUTSIDE RECORDS SUMMARY | 2025-03-29 01:17 | XMS_ITS | Clinical Summary ---
Author Organization [facility] Address [address] [facility], [address] [place] [address] Care Team Providers Care Zanjero Name Role Phone Avila Puri DO Primary Care Provider [phone] Allergies Active Allergy Reactions Criticality Noted Date [...] Type Department Care Team Description 01/10/[address] [place] [address] Floresita Smith student success counselor [facility] [address] [place] [address] Floresita Smith student success counselor Refill 12/29/[address] [place] [address] Floresita Smith RN Other from Last 3 Months Family History Relation [...] 01/29/2019 Lipids 2024 COVID-19 Vaccine (2 - season) 2024 10/06/2023 Flu vaccine (#1) 04/08/2025 [...] Last Indicated Human Metapneumovirus 10/04/2021 10/04/2021 Insurance [facility] Care Teams Zanjero Relationship Specialty Start Date End Date Avila Puri DO [address] [facility] [address] [place] [address] PCP - General Family Medicine 10/12/20
--- OUTSIDE RECORDS SUMMARY | 2025-03-29 01:17 | XMS_ITS | Encounter Summary ---
Demographics Address [address] [place] [phone] Mobile Phone Email Address Preferred Language en Marital Status Worship Affiliation Unknown Race White Ethnic Group Not or Lati no Author Organization Healthcare Address [address] [place] [address] Care Team Providers Care Microwave Radio Technician Name Role Phone Pcp, No Primary Care [...] on filedocumented in this encounter Care Teams Microwave Radio Technician Relationship Specialty Start Date End Date Pcp, No [address] [place] [address] PCP - General Family Medicine 02/07/25 documented as of this encounter
--- OUTSIDE RECORDS SUMMARY | 2025-03-29 01:17 | XMS_ITS ---
Author Organization [facility] Address [address] [facility], [address] [place] [address] Care Team Providers Care Senior Sales Operations Analyst Name Role Phone Avila Puri Erlinda LARSEN Primary Care Provider [phone] Active Problems Patient Care Coordination No te [...]
--- OUTSIDE RECORDS SUMMARY | 2025-03-29 01:17 | XMS_ITS | Encounter Summary ---
Demographics Address [address] [place] [phone] Mobile Phone Email Address Preferred Language en Marital Status Pentecostalism Affiliation Unknown Race White Ethnic Group Not or Lati no Author Organization Healthcare Address [address] [place] [phone] Care Team Providers Care Early Childhood Worker Name Role Phone Pcp, No Primary [...] 1 Month) No 025 11:11 PM EDT Dai Pagan 2. Non-Specific Active Suici cyndie Thoughts (Past 1 Month) No 02/27/2025 11:11 PM EDT Jhonny Pagan 6. Suicidal Behavior (Lifetime) No 5 11:11 PM EDT Dia Pagan documented as of this encounter Plan of Treatment Not on file documented as of this encounter Visit Diagnoses Not on filedocumented in this encounter Care Teams Early Childhood Worker Relationship Specialty Start Date End Date Pcp, No [address] [place] [address] PCP - General Family Medicine 02/07/25 documented as of this encounter
--- OUTSIDE RECORDS SUMMARY | 2025-03-29 01:17 | XMS_ITS | Clinical Summary ---
Demographics Address [address] [place] [phone] Mobile Phone Email Address Preferred Language en Marital Status Restorationism Affiliation Unknown Race White Ethnic Group Not or Lati no Author Organization Healthcare Address [address] [place] [address] Care Team Providers Care Position Classifier Name Role Phone Pcp, No Primary Care [...] EDT - 03/19/2025 2:48 AM EDT Emergency [facility] Emergency Department [address] [place] [phone] Abbe Ramires MD Cancer associated pain (Primary Dx); Hypokalemia Discharge Disposition: Home or Self Care 03/19/2025 Travel 03/16/2025 4:56 PM EDT - 03/16/2025 5:25 PM EDT Emergency [facility] Emergency Department [address] [place] [address] Discharge Disposition: Left WIthout Being Seen 03/16/2025 Travel 02/27/2025 10:52 PM EDT - 02/28/2025 1:08 AM EDT Emergency [facility] Emergency Department [address] [place] [phone] García Matias MD Cancer associated pain (Primary Dx) Discharge Disposition: Home or Self Care 02/27/2025 Travel 02/07/2025 4:00 PM EDT - 02/07/2025 6:31 PM EDT Emergency [facility] Emergency Department [address] [place] [address] German Gonzalez DO Cancer associated pain (Primary Dx) Discharge Disposition: Home or Self Care 02/07/2025 Patient Outreach [place] [facility] [address] [place] [address] Boni Anna 02/07/2025 Travel from Last 3 [...] [facility]-Depression Screening 1985 [facility]-/Child/Adol SDOH Screenings 1985 [id number] Vaccine (#1) 01/29/1989 [facility]-Obesity Intervention 01/29/1990 [facility]-Varicella [...] LAB HEMATOLOGY METHOD 03/19/2025 1:09 AM EDT [facility] Blood Venous blood specimen / Unknown Venipuncture / Unknown 03/19/2025 12:52 AM EDT 03/19/2025 1:07 AM EDT us Abbe Ramires MD LAB BLOOD ORDERABLES Final Resul t [facility] [address] [place] [address] * (ABNORMAL) CBC w/diff (03/19/2025 12:52 AM EDT) Only the most recent of2 resultswithin the time period is included. WBC Count 41.22(H) 3.70 - 10.30 10*3/uL LAB HEMATOLOGY METHOD 03/19/2025 1:12 AM EDT [facility] RBC Count 3.12(L) 3.90 - 5.20 10*6/uL LAB HEMATOLOGY METHOD 03/19/2025 1:12 AM EDT [facility] HGB 9.5(L) 11.2 - 15.7 g/dL LAB HEMATOLOGY METHOD 03/19/2025 1:12 AM EDT [facility] HCT 29.0(L) 34.0 - 45.0 % LAB HEMATOLOGY METHOD 03/19/2025 1:12 AM EDT [facility] Platelet Count 301 155 - 369 10*3/uL LAB HEMATOLOGY METHOD 03/19/2025 1:12 AM EDT [facility] MCV 93 79 - 98 fL LAB HEMATOLOGY METHOD 03/19/2025 1:12 AM EDT [facility] MCH 30.4 26.0 - 32.0 pg LAB HEMATOLOGY METHOD 03/19/2025 1:12 AM EDT [facility] MCHC 32.8 30.7 - 35.5 g/dL LAB HEMATOLOGY METHOD 03/19/2025 1:12 AM EDT [facility] RDW 16.6(H) 11.5 - 14.5 % LAB HEMATOLOGY METHOD 03/19/2025 1:12 AM EDT [facility] MPV 10.1 8.8 - 12.5 fL LAB HEMATOLOGY METHOD 03/19/2025 1:12 AM EDT [facility] nRBC 0.0 <=0.0 per 100 WBCs LAB HEMATOLOGY METHOD 03/19/2025 1:12 AM EDT [facility] Differential Type Automated LAB HEMATOLOGY METHOD 03/19/2025 1:12 AM EDT [facility] Neutrophils % 95 % LAB HEMATOLOGY METHOD 03/19/2025 1:12 AM EDT [facility] Lymphocytes % 2 % LAB HEMATOLOGY METHOD 03/19/2025 1:12 AM EDT [facility] Monocytes % 1 % LAB HEMATOLOGY METHOD 03/19/2025 1:12 AM EDT [facility] Eosinophils % 0 % LAB HEMATOLOGY METHOD 03/19/2025 1:12 AM EDT [facility] Basophils % 0 % LAB HEMATOLOGY METHOD 03/19/2025 1:12 AM EDT [facility] Immature Granulocytes % 2 % LAB HEMATOLOGY METHOD 03/19/2025 1:12 AM EDT [facility] Neutrophils Absolute 39.07(H) 1.60 - 6.10 10*3/uL LAB HEMATOLOGY METHOD 03/19/2025 1:12 AM EDT [facility] Lymphocytes Absolute 0.81(L) 1.20 - 3.90 10*3/uL LAB HEMATOLOGY METHOD 03/19/2025 1:12 AM EDT [facility] Monocytes Absolute 0.34 0.30 - 0.90 10*3/uL LAB HEMATOLOGY METHOD 03/19/2025 1:12 AM EDT [facility] Eosinophils Absolute 0.02 0.00 - 0.50 10*3/uL LAB HEMATOLOGY METHOD 03/19/2025 1:12 AM EDT [facility] Basophils Absolute 0.08 0.00 - 0.10 10*3/uL LAB HEMATOLOGY METHOD 03/19/2025 1:12 AM EDT [facility] Immature Granulocytes Absolute 0.90(H) 0.00 - 0.06 10*3/uL LAB HEMATOLOGY METHOD 03/19/2025 1:12 AM EDT [facility] Blood Venous blood specimen / Unknown Venipuncture / Unknown 03/19/2025 12:52 AM EDT 03/19/2025 1:08 AM EDT Narrative [facility] - 03/19/2025 1:12 AM EDT Therapeutic decision making should be based on absolute values, rather than percentages. us Abbe Ramires MD LAB BLOOD ORDERABLES Final Resul t [facility] [address] [place] [address] * (ABNORMAL) BMP (03/19/2025 12:52 AM EDT) Glucose, Plasma 79 74 - 99 mg/dL 03/19/2025 1:31 AM EDT [facility] BUN, Plasma 22(H) 7 - 21 mg/dL 03/19/2025 1:31 AM EDT [facility] Creatinine, Plasma 0.92 0.60 - 1.10 mg/dL 03/19/2025 1:31 AM EDT [facility] BUN/Creatinine Ratio 24 03/19/2025 1:31 AM EDT [facility] Sodium, Plasma 143 136 - 145 mmol/L 03/19/2025 1:31 AM EDT [facility] Potassium, Plasma 3.2(L) 3.6 - 4.9 mmol/L 03/19/2025 1:31 AM EDT [facility] Chloride, Plasma 110(H) 97 - 107 mmol/L 03/19/2025 1:31 AM EDT [facility] CO2, Plasma 21(L) 22 - 29 mmol/L 03/19/2025 1:31 AM EDT [facility] Anion Gap 12 6 - 16 mmol/L 03/19/2025 1:31 AM EDT [facility] Total Calcium, Plasma 8.4(L) 8.9 - 10.2 mg/dL 03/19/2025 1:31 AM EDT [facility] eGFRcr 80.4 mL/min/1.7 3m*2 03/19/2025 1:31 AM EDT [facility] Comment:Reported eGFRcr in m L/min/1.73m2 is based the CKD-EPI 2020 equation that does not use a race coefficient. Blood Venous blood specimen / Unknown Venipuncture / Unknown 03/19/2025 12:52 AM EDT 03/19/2025 1:07 AM EDT us Abbe Ramires MD LAB BLOOD ORDERABLES Final Resul t [facility] [address] [place] [address] * Morphology (02/27/2025 11:23 PM EDT) RBC Morphology RBC Morphology Consistent with Indices and RDW LAB HEMATOLOGY METHOD 02/27/2025 11:58 PM EDT [facility] Platelet Estimate Platelet smear estimate consistent with automated count LAB HEMATOLOGY METHOD 02/27/2025 11:58 PM EDT [facility] Blood Venous blood specimen / Unknown Venipuncture / Unknown 02/27/2025 11:23 PM EDT 02/27/2025 11:25 PM EDT García Matias MD LAB BLOOD ORDERABLES Final Result [facility] [address] [place] [id number] * (ABNORMAL) Manual Differential (02/27/2025 11:23 PM EDT) Blasts % 0 % LAB HEMATOLOGY METHOD 02/27/2025 11:58 PM EDT [facility] Promyelocytes % 0 % LAB HEMATOLOGY METHOD 02/27/2025 11:58 PM EDT [facility] Myelocytes % 4 % LAB HEMATOLOGY METHOD 02/27/2025 11:58 PM EDT [facility] Metamyelocytes % 3 % LAB HEMATOLOGY METHOD 02/27/2025 11:58 PM EDT [facility] Neutrophils % 43 % LAB HEMATOLOGY METHOD 02/27/2025 11:58 PM EDT [facility] Lymphocytes % 20 % LAB HEMATOLOGY METHOD 02/27/2025 11:58 PM EDT [facility] Reactive Lymphocytes % 0 % LAB HEMATOLOGY METHOD 02/27/2025 11:58 PM EDT [facility] Monocytes % 30 % LAB HEMATOLOGY METHOD 02/27/2025 11:58 PM EDT [facility] Eosinophils % 0 % LAB HEMATOLOGY METHOD 02/27/2025 11:58 PM EDT [facility] Basophils % 0 % LAB HEMATOLOGY METHOD 02/27/2025 11:58 PM EDT [facility] Blasts Absolute 0.00 10*3/UL LAB HEMATOLOGY METHOD 02/27/2025 11:58 PM EDT [facility] Promyelocytes Absolute 0.00 10*3/uL LAB HEMATOLOGY METHOD 02/27/2025 11:58 PM EDT [facility] Myelocytes Absolute 0.29 10*3/uL LAB HEMATOLOGY METHOD 02/27/2025 11:58 PM EDT [facility] Metamyelocytes Absolute 0.22 10*3/uL LAB [...] ORDERABLES Final Result [facility] [address] [place] [address] * hCG qualitative (02/27/2025 11:23 PM EDT) Test Negative Negative 02/27/2025 11:47 PM EDT [facility] Blood Venous blood specimen / Unknown Venipuncture / Unknown 02/27/2025 11:23 PM EDT 02/27/2025 11:25 PM EDT Narrative [facility] - 02/27/2025 11:47 PM EDT Reference Range: Males and non- females: Negative. us García Matias MD LAB BLOOD ORDERABLES Final Result Performing Organization Address City/[facility]/ZIP Co de Phone Number [facility] [address] [place] [address] * Magnesium (02/27/2025 11:23 PM EDT) Magnesium, Plasma 2.2 1.9 - 2.4 mg/dL 02/27/2025 11:47 PM EDT [facility] Blood Venous blood specimen / Unknown Venipuncture / Unknown 02/27/2025 11:23 PM EDT 02/27/2025 11:25 PM EDT us García Matias MD LAB BLOOD ORDERABLES Final Result [facility] [address] [place] [address] * (ABNORMAL) CMP (02/27/2025 11:23 PM EDT) Only the most recent of2 resultswithin the time period is included. Glucose, Plasma 110(H) 74 - 99 mg/dL 02/27/2025 11:47 PM EDT [facility] BUN, Plasma 11 7 - 21 mg/dL 02/27/2025 11:47 PM EDT [facility] Creatinine, Plasma 0.80 0.60 - 1.10 mg/dL 02/27/2025 11:47 PM EDT [facility] BUN/Creatinine Ratio 14 02/27/2025 11:47 PM EDT [facility] Sodium, Plasma 142 136 - 145 mmol/L 02/27/2025 11:47 PM EDT [facility] Potassium, Plasma 4.5 3.6 - 4.9 mmol/L 02/27/2025 11:47 PM EDT [facility] Chloride, Plasma 105 97 - 107 mmol/L 02/27/2025 11:47 PM EDT [facility] CO2, Plasma 26 22 - 29 mmol/L 02/27/2025 11:47 PM EDT [facility] Anion Gap 11 6 - 16 mmol/L 02/27/2025 11:47 PM EDT [facility] Total Calcium, Plasma 9.3 8.9 - 10.2 mg/dL 02/27/2025 11:47 PM EDT [facility] Total Protein 6.1(L) 6.3 - 7.9 g/dL 02/27/2025 11:47 PM EDT [facility] Albumin, Plasma 3.9 3.5 - 5.2 g/dL 02/27/2025 11:47 PM EDT [facility] AST, Plasma 29 10 - 35 U/L 02/27/2025 11:47 PM EDT [facility] ALT, Plasma 27 10 - 35 U/L 02/27/2025 11:47 PM EDT [facility] Alkaline Phosphatase, Plasma 132(H) 35 - 104 U/L 02/27/2025 11:47 PM EDT [facility] Total Bilirubin, Plasma <0.2(L) 0.2 - 1.1 mg/dL 02/27/2025 11:47 PM EDT [facility] eGFRcr 95.1 mL/min/1.7 3m*2 02/27/2025 11:47 PM EDT [facility] Comment:Reported eGFRcr in m L/min/1.73m2 is based the CKD-EPI 2020 equation that does not use a race coefficient. Blood Venous blood specimen / Unknown Venipuncture / Unknown 02/27/2025 11:23 PM EDT 02/27/2025 11:25 PM EDT us García Matias MD LAB BLOOD ORDERABLES Final Result Performing Organization Address City/[facility]/ZIP Co de Phone Number [facility] [address] [place] [address] * ED HIV 1/2 Antibody/Antigen Screen w/Reflex [...] MD LAB BLOOD ORDERABLES Final Resul t [facility] [address] [place] [address] * Hepatitis C Virus (HCV) Quantitative PCR - ED (02/07/2025 5:00 PM EDT) [facility] Hepatitis C Virus (HCV) Quantitative Interpretation Not Detected Not Detected. 02/08/2025 2:54 PM EDT [facility] Blood Venous blood specimen / Unknown Venipuncture / Unknown 02/07/2025 5:00 PM EDT 02/07/2025 5:10 PM EDT Narrative [facility] - 02/08/2025 2:54 PM EDT The [employer] M2000 HCV test is a Real Time [...] ORDERABLES Final Resul t Performing Organization Address City/[facility]/ZIP Co de Phone Number [facility] [address] [place] [address] * (ABNORMAL) Hepatitis C Antibody - ED (02/07/2025 5:00 PM EDT) [facility] Hepatitis C Antibody Positive(A ) Negative 02/07/2025 6:33 PM EDT [facility] Blood Venous blood specimen / Unknown Venipuncture / Unknown 02/07/2025 5:00 PM EDT 02/07/2025 5:10 PM EDT us Kunal Velázquez MD LAB BLOOD ORDERABLES Final Resul t [facility] [address] [place] [address] * (ABNORMAL) CBC (02/07/2025 5:00 PM EDT) [facility] WBC Count 3.22(L) 3.70 - 10.30 10*3/uL LAB HEMATOLOGY METHOD 02/07/2025 5:29 PM EDT [facility] RBC Count 3.44(L) 3.90 - 5.20 10*6/uL LAB HEMATOLOGY METHOD 02/07/2025 5:29 PM EDT [facility] HGB 10.4(L) 11.2 - 15.7 g/dL LAB HEMATOLOGY METHOD 02/07/2025 5:29 PM EDT [facility] HCT 31.8(L) 34.0 - 45.0 % LAB HEMATOLOGY METHOD 02/07/2025 5:29 PM EDT [facility] Platelet Count 212 155 - 369 10*3/uL LAB HEMATOLOGY METHOD 02/07/2025 5:29 PM EDT [facility] MCV 92 79 - 98 fL LAB HEMATOLOGY METHOD 02/07/2025 5:29 PM EDT [facility] MCH 30.2 26.0 - 32.0 pg LAB HEMATOLOGY METHOD 02/07/2025 5:29 PM EDT [facility] MCHC 32.7 30.7 - 35.5 g/dL LAB HEMATOLOGY METHOD 02/07/2025 5:29 PM EDT [facility] RDW 13.7 11.5 - 14.5 % LAB HEMATOLOGY METHOD 02/07/2025 5:29 PM EDT [facility] MPV 10.4 8.8 - 12.5 fL LAB HEMATOLOGY METHOD 02/07/2025 5:29 PM EDT [facility] nRBC 1.2(H) <=0.0 per 100 WBCs LAB HEMATOLOGY METHOD 02/07/2025 5:29 PM EDT [facility] Blood Venous blood specimen / Unknown Venipuncture / Unknown 02/07/2025 5:00 PM EDT 02/07/2025 5:09 PM EDT us Kunal Velázquez MD LAB BLOOD ORDERABLES Final Resul t Performing Organization Address City/State/[facility] Co de Phone Number [facility] [address] [place] [address] from Last 3 Months Insurance * Guarantor: Anne Kearney Account Type Relation to Patient Date of Phone Billing Address Personal/Family Self 1985 [address] [place] [address] [employer] Care Teams Position Classifier Relationship Specialty Start Date End Date Pcp, Mounika [address] [place] [address] PCP - General Family Medicine 02/07/25
--- OUTSIDE RECORDS SUMMARY | 2025-03-29 01:17 | XMS_ITS ---
Demographics Address [address] [place] [phone] Mobile Phone Email Address Preferred Language en Marital Status Baptism Affiliation Unknown Race White Ethnic Group Not or Lati no Author Organization [facility] Address [address] [place] [address] Care Team Providers Care Poultry Feed Supervisor Name Role Phone Pcp, No Primary Care Provider Unavailabl e Hepatitis C Program Status:Closed (Closed) Start date:02/07/2025 Enrollment reason:HCV End date:02/07/2025 Close reason:HCV RNA Negative Continued Care and Services Coordination
== END 2025-03-29 01:17 | disposition home or self-care (01) ==
LOC: ER 01:12
PROVIDERS: Emergency Provider Emergency Medicine
DX: R21 Rash and other nonspecific skin eruption (principal)
CPT/HCPCS: 99283

== ENCOUNTER 2025-04-09 02:02 | Emergency (ER) | payer MEDICAID, SELFPAY ==
--- OUTSIDE RECORDS SUMMARY | 2024-09-15 10:28 | XMS_ITS | Encounter Summary ---
[facility] Address [address] [place] [address] Care Team Providers Care Human Machine Interface Engineer Name Role Phone Avila Puri DO Primary Care Provider [phone] Reason for Visit * Auth/Cert (Routine) Specialty [...] CONSTRUCTION COMPLEX CHG CONTINUING MEDICAL PHYSICS CONSLTJ DC WK CHG MLC IMRT DESIGN & CONSTRUCTION PER IMRT PLAN CHG RADIATION TREATMENT MANAGEMENT 5 TREATMENTS CHG RESPIRATORY MOTION MANAGEMENT SIMULATION Referral ID Status Reason Start Date Expiration Date Visits Re quested Visits Authorized [id number] 28 28 Encounter Details Date Type Department Care Team (Late st Contact Info) Description 09/15/2024 8:28 AM BOXING TRAINER Hospital Encounter [facility] RAD ONC [address] [place] [phone] Social History Tobacco Use Types Packs/Day [...] or training? Not on file Preferred Language Zimbabwean 09/27/2024 PHQ-2 Answer Date Recorded Patient Health [...] 12:28 AM DINORAHT Sage Martinez RN * [place] Suicide Severity Rating Scale (Screener/Recent Self-Report) Question [...] Description 06/06/2025 10:30 AM EDT Office Visit [facility] [address] [place] [phone] [place] [address] [place] [address] documented as of this encounter Visit Diagnoses Not on filedocumented in this encounter Care Teams Human Machine Interface Engineer Relationship Specialty Start Date End Date Avila Puri DO [address] [address] [address] [place], [place] [phone] PCP - General Family Medicine 10/05/21 03/01/25 documented as of this encounter
--- OUTSIDE RECORDS SUMMARY | 2024-10-11 10:00 | XMS_ITS | Encounter Summary ---
[facility] [address] [place] [address] Care Team Providers Care Employee Relations Consultant Name Role Phone Avila Puri DO Primary Care Provider [phone] Reason for Visit * Auth/Cert (Routine) Specialty [...] CONSTRUCTION COMPLEX CHG CONTINUING MEDICAL PHYSICS CONSLTJ MS WK CHG MLC IMRT DESIGN & CONSTRUCTION PER IMRT PLAN CHG RADIATION TREATMENT MANAGEMENT 5 TREATMENTS CHG RESPIRATORY MOTION MANAGEMENT SIMULATION Referral ID Status Reason Start Date Expiration Date Visits Re quested Visits Authorized [id number] 28 28 Encounter Details Date Type Department Care Team (Late st Contact Info) Description 10/11/2024 8:00 AM SIGNAL TIMER Hospital Encounter RAD ONC [address] [place] [phone] Social History Tobacco Use Types Packs/Day [...] or training? Not on file Preferred Language [place] Citizen 09/27/2024 PHQ-2 Answer Date Recorded Patient Health [...] 12:28 AM DINORAHT Sage Martinez RN * [place] Suicide Severity Rating Scale (Screener/Recent Self-Report) Question [...] hopeless Not at all 10/18/2024 1:38 PM EST Beatriz Padron MA Patient Health Questionnaire -2 Score 0 10/18/2024 1:38 PM EST Beatriz Padron MA documented as of this encounter Plan of Treatment Upcoming Encounters Date Type Department Care Team (Late st Contact Info) Description 06/06/2025 10:30 AM EDT Office Visit [facility] [address] [place] [phone] Juan Luis Garza MD [address] [facility] [address] [place] [address] documented as of this encounter Visit Diagnoses Not on filedocumented in this encounter Care Teams Employee Relations Consultant Relationship Specialty Start Date End Date Avila Puri DO [address] [address] [address] [place] [address] PCP - General Family Medicine 10/05/21 03/01/25 documented as of this encounter
--- OUTSIDE RECORDS SUMMARY | 2024-11-08 09:20 | XMS_ITS | Encounter Summary ---
[facility] Address [address] [place] [address] Care Team Providers Care Casino Floor Runner Name Role Phone Avila Puri DO Primary [...] CONSTRUCTION COMPLEX CHG CONTINUING MEDICAL PHYSICS CONSLTJ IL WK CHG MLC IMRT DESIGN & CONSTRUCTION PER IMRT PLAN CHG RADIATION TREATMENT MANAGEMENT 5 TREATMENTS CHG RESPIRATORY MOTION MANAGEMENT SIMULATION Referral ID Status Reason Start Date Expiration Date Visits Re quested Visits Authorized [id number] 28 28 Encounter Details Date Type Department Care Team (Late st Contact Info) Description 11/08/2024 7:20 AM RETANNED LEATHER ROLLER Hospital Encounter [facility] RAD ONC [address] [place] [phone] Social History Tobacco Use Types Packs/Day [...] or training? Not on file Preferred Language Senegalese 09/27/2024 PHQ-2 Answer Date Recorded Patient Health [...] 12:28 AM EDT Sage Martinez RN * [place] Suicide Severity Rating Scale (Screener/Recent Self-Report) Question [...] Description 06/06/2025 10:30 AM EDT Office Visit [facility] [address] [place] [address] [address] [place] [phone] Juan Luis Garza MD [address] [facility] [address] [place] [address] documented as of this encounter Visit Diagnoses Not on filedocumented in this encounter Care Teams Casino Floor Runner Relationship Specialty Start Date End Date Avila Puri DO [address] [address] [address] [place], [place] [phone] PCP - General Family Medicine 10/05/21 03/01/25 documented as of this encounter
--- OUTSIDE RECORDS SUMMARY | 2025-02-09 08:15 | XMS_ITS | Encounter Summary ---
Author Organization [place] [address] Care Team Providers Care Fly Maker Name Role Phone Rodriguez Lindo Primary Care Provider +1- [phone] Eden Noble RN Unavailable Unavailable Encounter Details Date Type Department Care Team (Latest Contact Info) Description 02/09/2025 8:15 AM EDT - 02/09/2025 8:29 AM EDT Hospital Encounter [facility] [place] [phone] Malignant neoplasm of overlapping sites of left [...] AM EDT Appointment [place] [address] 04/15/2025 9:15 AM EDT [facility]ment [facility] [place] [address] Vane Hollingsworth MD [address] [place] [phone] documented as of this encounter Procedures Procedure [...] - 2.4 mg/dL 02/09/2025 9:32 AM EDT [facility] Blood VENOUS STRUCTURE / Unknown Medicare Port / Unknown 02/09/2025 8:45 AM EDT 02/09/2025 8:46 AM EDT [facility] PARTS INSPECTOR CHEMISTRY ORDERABLES Ernestine l Result [facility] [address] [place] [address] * (ABNORMAL) COMPREHENSIVE METABOLIC PANEL (02/09/2025 8:45 AM EDT) Sodium 142 136 - 145 mmol/L 02/09/2025 9:32 AM EDT [facility] Potassium 3.4(L) 3.5 - 5.0 mmol/L 02/09/2025 9:32 AM EDT [facility] Chloride 107 98 - 107 mmol/L 02/09/2025 9:32 AM EDT [facility] Total CO2 23 22 - 29 mmol/L 02/09/2025 9:32 AM EDT [facility] Anion Gap 12 7 - 16 mmol/L 02/09/2025 9:32 AM EDT [facility] Calcium 9.3 8.6 - 10.4 mg/dL 02/09/2025 9:32 AM EDT [facility] Glucose Lvl 101(H) 70 - 99 mg/dL 02/09/2025 9:32 AM EDT [facility] BUN 10 6 - 20 mg/dL 02/09/2025 9:32 AM EDT [facility] Creatinine 0.77 0.51 - 1.30 mg/dL 02/09/2025 9:32 AM EDT [facility] Albumin 4.0 3.5 - 5.2 gm/dL 02/09/2025 9:32 AM EDT [facility] Total Protein 6.3(L) 6.4 - 8.3 gm/dL 02/09/2025 9:32 AM EDT [facility] Bili Total <0.2(L) 0.2 - 1.3 mg/dL 02/09/2025 9:32 AM EDT [facility] ALT 15 <=41 U/L 02/09/2025 9:32 AM EDT [facility] AST 23 <=40 U/L 02/09/2025 9:32 AM EDT [facility] Alk Phos 109 36 - 123 U/L 02/09/2025 9:32 AM EDT [facility] eGFR (CKD-EPIcr 2020) 99 >=60 mL/min/1.7 3 m2 02/09/2025 9:32 AM EDT [facility] Comment:Estimated GFR was ca lculated using the CKD-EPIcr (2020) equation refit without race. The equation is recommended by the National Kidney Foundation - [place] Society of Nephrology Task Force. Blood VENOUS STRUCTURE / Unknown Medicare Port / Unknown 02/09/2025 8:45 AM EDT 02/09/2025 8:46 AM EDT [facility] PARTS INSPECTOR CHEMISTRY [place] [address] * (ABNORMAL) CBC WITH DIFF (02/09/2025 8:45 AM EDT) WBC 28.7(H) 3.7 - 10.3 x10(3)/mc L 02/09/2025 9:45 AM EDT [facility] [place], [facility] Comment:This is an appended report. These results have been appended to a previously preliminary verified report. RBC 3.12(L) 3.90 - 5.20 x10(6)/mc L 02/09/2025 9:45 AM EDT [facility] Hgb 9.6(L) 11.2 - 15.7 g/dL 02/09/2025 9:45 AM EDT [facility] Hct 29.9(L) 34.0 - 45.0 % 02/09/2025 9:45 AM EDT [facility] MCV 95.8 80.0 - 100.0 fL 02/09/2025 9:45 AM EDT [facility] MCH 30.8 26.0 - 34.0 pg 02/09/2025 9:45 AM EDT [facility] MCHC 32.1 30.7 - 35.5 g/dL 02/09/2025 9:45 AM EDT [facility] RDW 13.9 <=14.9 % 02/09/2025 9:45 AM EDT [facility] Platelet 217 155 - 369 x10(3)/mc L 02/09/2025 9:45 AM EDT [facility] MPV 9.5 8.8 - 12.5 fL 02/09/2025 9:45 AM EDT [facility] NRBC Auto % 0.8(H) <=0.0 % [...] 9:45 AM EDT [facility] [place] # 2.3(H) 0.3 - 0.9 x10(3)/mc L [...] 02/09/2025 8:46 AM EDT Sosa E Kle[facility] PARTS INSPECTOR HEMATOLOGY [place] [address] [facility], [address], [place] [address] documented in this encounter Visit Diagnoses Diagnosis [...] 12/2024 documented in this encounter Care Teams Fly Maker Relationship Specialty Start Date End Date [facility] [place] [address] [place] [address] PCP - General Clinic/Center - [facility] ([facility]) 12/03/16 Eden Noble RN Registered Nurse Infusion Therapy 02/09/25 02/09/25 documented as of this encounter
--- OUTSIDE RECORDS SUMMARY | 2025-02-09 08:30 | XMS_ITS | Encounter Summary ---
Author Organization [place] [address] Care Team Providers Care Typing Secretary Name Role Phone Rodriguez Lindo Primary Care Provider [phone]- [phone] Eden Noble RN Unavailable Unavailable Reason for Visit * Reason Comments Follow-up Breast Cancer Malignant neoplasm o f overlapping sites of left breast in female, estrogen receptor positive (HCC) Encounter Details Date Type Department Care Team (Latest Contact Info) Description 02/09/2025 8:30 AM EDT - 02/09/2025 8:59 AM EDT Hospital Encounter [facility] [place] [address] Ana Rosa Del Angel, [address] [place] [address] Antineoplastic chemotherapy induced anemia (Primary Dx) Discharge [...] were not included. Patient: Anne Kearney CSN: [id number] Date of : 1985 Age: 40 y.o. Date of Service: 02/09/2025 HEMATOLOGY/ONCOLOGY NEW PATIENT OFFICE NOTE Primary Care Physician: Rodriguez Lindo Referring Physician: Ana Rosa Del Angel APRN Reason for Referral: Breast Cancer CURRENT TREATMENT: 12/15/2024 - TC X 4 (first cycle given in [place]) Outside oncology history: Diagnosis Invasive lobular carcinoma, 2 o'clock left breast, Jul 2024 Grade 2 ER 76%, ID 24%, HER-2 0/negative, Ki67 13% Stage IIB; pT2, pN1a Oncotype DX recurrence score: 17 [facility] BRCA 1/2 CancerNext genetic test: Positive pathogenic mutation detected: BRCA2 History Hepatitis C-treated Treatment Summary 07/29/24 Bilateral mastectomies with positive (09/13) left axillary SLNB by Dr Giovanna Tolentino/[facility] General Surgery 08/16/24 Initiated endocrine hormone therapy with Tamoxifen 20mg daily by Dr Oliverio Prescott/[facility] Medical Oncology 10/01/24 Prophylactic total hysterectomy with bilateral salpino-oophorectomy by Dr Ministerio Gamino/[facility] INTERFACE ENGINEER 10/11/24 - 12/01/24 Completed adjuvant radiation therapy with 5040cGy over 28 fractions to left breastby Dr Angelito Pierson/[facility] Radiation Oncology 10/18/24 Discontinue Tamoxifen. Initiate Letrozole 2.5mg daily by Dr Oliverio Prescott/[facility] Medical Oncology. 12/15/24 Taxotere, Cyclophosphamide + [...] nipple, core needle biopsies: Invasive lobular carcinoma. [place] histologic score Glandular differentiation: Score 3. Nuclear pleomorphism: Score 2. Mitotic rate: Score 1. Overall grade: Grade 2. Maximum tumor diameter is at least 1.4 cm. ER 76%, ID 24%, HER-2 0/negative, Ki67 13% 06/29/24 MRI bilateral breast ([facility]): The breast tissue is heterogeneously dense [...] axillary or internal mammary lymphadenopathy identified. 06/29/24 [facility] STORYS.JP 1/ CancerNext genetic test: Positive pathogenic mutation detected: BRCA2 Bilateral mastectomies with positive (1) left axillary SLNB by Dr Giovanna Tolentino/[facility] General Surgery 07/29/24 Left breast, total [...] with Tamoxifen 20mg daily by Dr Oliverio Prescott/[facility] Medical Oncology 08/16/24 [facility] labs: CEA 3.75, CA 27-29 14; CBC-WBC 14.6; ANC 8.7; ALC 4.2; Hgb 12.1; MCV 88.9; platelets 361,000; CMP WNL; ferritin 19, iron 34, fe sat 7% 08/18/24 CT chest ([facility]): No evidence of metastatic disease in the chest. Postoperative change of bilateral mastectomy. 08/18/24 CT abd/pelvis ([facility]): No evidence of metastatic disease in the abdomen or pelvis. 08/18/24 Bone scan ([facility]): No evidence of osteoblastic metastatic disease by bone scan. 08/30/24 Oncotype DX recurrence score: 17 09/16/[address] Angelito Pierson/[facility] Radiation Oncology who recommended adjuvant radiation therapy with 5040 cGy over 28 fractions to left breast/[facility]. 09/20/[address] Oliverio Prescott/[facility] Medical Oncology who recommended referral to INTERFACE ENGINEER for prophylactic hysterectomy due to positive BRCA2 [...] hysterectomy with bilateral salpino-oophorectomy by Dr Ministerio Gamino/[facility] INTERFACE ENGINEER 10/01/24 Uterus, cervix, bilateral tubes and ovaries, hysterectomy and bilateral salpingo-oophorectomy: Chronic cervicitis. Proliferative endometrium. Endometrial polyp. Adenomyosis. Completely transected right and left fallopian tubes and unremarkable fimbrial epithelial surface. Mesonephric cyst associated both left and right fallopian tubes. Corpora albicantia of right ovary.Corpora albicantia and 1 corpus hemorrhagicum of left ovary. Uterine weight of 141.7 g. 10/03/24 CT abd/pelvis ([facility]): Moderate pneumoperitoneum with scattered extraperitoneal air [...] fractions to left breast by Dr Angelito Pierson/[facility] Radiation Oncology 10/18/24 Follow-up evaluation with Dr Oliverio Prescott/[facility] Medical Oncology who recommended to discontinue Tamoxifen, initiate Letrozole 2.5mg daily and to anticipate adjuvant Taxotere 75mg/m2, Cyclophosphamide 600mg/m2 every 3 weeks x4 cycles 10/18/24 Discontinue Tamoxifen. Initiate Letrozole 2.5mg daily by Dr Oliverio Prescott/[facility] Medical Oncology 11/03/24 CT chest ([facility]): No acute abnormality in the chest. 11/03/24 US venous doppler upper right extremity ([facility]): There is no evidence of deep venous thrombosis of the right upper extremity. There is partial nonocclusive superficial thrombus in the cephalic vein. 12/01/24 Completed adjuvant radiation therapy with 5040cGy over 28 fractions to left breast by Dr Angelito Pierson/[facility] Radiation Oncology 12/15/24 First dose of TC HISTORY OF PRESENT ILLNESS: CC: Chief Complaint Patient presents with Follow-up Breast Cancer Malignant neoplasm of overlapping sites of left breast in female, estrogen receptor positive (HCC) Patient is a 40 y.o. female who presents for breast cancer follow up and treatment. First dose of TC in [facility] and moved locally and here to continue [...] and [place] No nausea, some abdominal discomfort +BM last night normal To see new PCP on 01/30 in [place] - Dr. Garza Has scheduled pain visit on 01/[address] 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 Dr. Hollingsworth will [...] Del Angel APRN Hematology and Medical Oncology [facility] documented in this encounter Plan of Treatment Upcoming Encounters Date Type Department Care Team (Late st Contact Info) Description 04/15/2025 8:45 AM EDT Appointment [facility] [place], [place] [phone] 04/15/2025 9:15 AM EDT Appointment [facility] [place], [place] [id number] Vane Hollingsworth MD [address] [place] [address] [phone] documented as of this encounter Results * [...] [phone]. (4)Evelyn L., et al. 2010. Blood [id number]. Ana Rosa Del Angel APRN HEMATOLOGY ORDERABLES Ernestine pinedo Result [facility] [address] [facility] , [address] [place] [id number] * FERRITIN (02/14/2025 11:01 AM EDT) Ferritin 144 30 - 150 ng/mL 02/14/2025 12:02 PM EDT [facility] Comment:The lower threshold of 30 is not [...] AM EDT 02/14/2025 11:04 AM EDT Narrative [facility] - 02/14/2025 12:02 PM EDT Ingestion of manda doses of biotin (>5 mg/day) taken within 8 hours of drawing blood sample can interfere with this immunoassay test. Ana Rosa Del Angel APRN CHEMISTRY ORDERABLES Final Result Performing Organization Address [facility] Co de Phone Number [facility], [address] , [place] [address] * IRON+TIBC (02/14/2025 11:01 AM EDT) [facility] Iron 63 30 - 160 mcg/dL 02/14/2025 12:02 PM EDT [facility], [facility] Transferrin 205 200 - 360 mg/dL 02/14/2025 12:02 PM EDT [facility], [facility] Transferrin Saturation 22 20 - 50 % 02/14/2025 12:02 PM EDT [facility], [facility] TIBC 287 250 - 400 mcg/dL 02/14/2025 12:02 PM EDT [facility], [facility] Blood VENOUS STRUCTURE / Unknown Port / Unknown 02/14/2025 11:01 AM EDT 02/14/2025 11:04 AM EDT Ana Rosa Del Angel APRN CHEMISTRY ORDERABLES Final Result Performing Organization Address [facility] de Phone Number [facility] [employer], [address] , [place] [address] * (ABNORMAL) CBC WITH DIFF (02/14/2025 11:01 AM EDT) [facility] WBC 9.3 3.7 - 10.3 x10(3)/mc L 02/14/2025 11:08 AM EDT [facility] RBC 3.50(L) 3.90 - 5.20 x10(6)/mc L 02/14/2025 11:08 AM EDT [facility] Hgb 10.7(L) 11.2 - 15.7 g/dL 02/14/2025 11:08 AM EDT [facility] Hct 34.3 34.0 - 45.0 % 02/14/2025 11:08 AM EDT [facility] MCV 98.0 80.0 - 100.0 fL 02/14/2025 11:08 AM EDT [facility] MCH 30.6 26.0 - 34.0 pg 02/14/2025 11:08 AM EDT [facility] MCHC 31.2 30.7 - 35.5 g/dL 02/14/2025 11:08 AM EDT [facility] RDW 14.9 <=14.9 % 02/14/2025 11:08 AM EDT [facility] Platelet 194 155 - 369 x10(3)/mc L 02/14/2025 11:08 AM EDT [facility] MPV 9.2 8.8 - 12.5 fL 02/14/2025 11:08 AM EDT [facility] Neut # Prelim 6.5(H) 1.6 - 6.1 x10(3)/mc L 02/14/2025 11:08 AM [facility] Comment:Preliminary automate d absolute neutrophil count. Value may change if manual differential is indicated. Neut Percent 70.0 % 02/14/2025 11:08 AM EDT [facility] Comment:Neutrophils equals s egs plus bands Imm Gran% 4.1 % 02/14/2025 11:08 AM T [facility] Comment:Automated count of m etamyelocytes, myelocytes and promyelocytes. IG > 3% may predict positive blood cultures with 98% specificity and 92% PPV. Karthik Peña., et al. (2003). [employer] Journal of Clinical Pathology, 120:5, [phone] Lymph Percent 15.1 % 02/14/2025 11:08 AM EDT [facility] [place] Percent 10.3 % 02/14/2025 11:08 AM EDT [facility] Eos Percent 0.1 % 02/14/2025 11:08 AM EDT [facility] Baso Percent 0.4 % 02/14/2025 11:08 AM EDT [facility] Neut # 6.5(H) 1.6 - 6.1 x10(3)/mc L 02/14/2025 11:08 AM EDT [facility] Comment:Neutrophils equals s egs plus bands IMMGRAN# 0.4(H) 0.0 - 0.1 x10(3)/mc L 02/14/2025 11:08 AM EDT [facility] Comment:Automated count of m etamyelocytes, myelocytes and promyelocytes. An absolute IG <0.1 is reported as 0.0. Lymph # 1.4 1.2 - 3.9 x10(3)/mc L 02/14/2025 11:08 AM EDT [facility] [place] # 1.0(H) 0.3 - 0.9 x10(3)/mc L 02/14/2025 11:08 AM EDT [facility] Eos# 0.0 0.0 - 0.5 x10(3)/mc L 02/14/2025 11:08 AM EDT [facility] Baso # 0.0 0.0 - 0.1 x10(3)/mc L 02/14/2025 11:08 AM EDT [facility] Blood VENOUS STRUCTURE / Unknown Port / Unknown 02/14/2025 11:01 AM EDT 02/14/2025 11:04 AM EDT us Ana Rosa Del Angel [employer] HEMATOLOGY ORDERABLES Ernestine pinedo Result [facility] [address] [place] [phone] documented in this encounter Visit Diagnoses Diagnosis [...] 02/07/2025 added in this encounter Care Teams Typing Secretary Relationship Specialty Start Date End Date Rodriguez Lindo [address] [place] [phone] PCP - General Clinic/Center - [facility] 12/03/16 Eden Noble, RN Registered Nurse Infusion Therapy 02/09/25 02/09/25 documented as of this encounter
--- OUTSIDE RECORDS SUMMARY | 2025-02-09 09:00 | XMS_ITS | Encounter Summary ---
Author Organization [place] [address] Care Team Providers Care Child Nurse Name Role Phone Rodriguez Lindo Primary Care Provider +1- [phone] Eden Noble RN Unavailable Unavailable Reason for Visit * Oncology Medication Prior Authorization (Routine) - Closed Specialty Diagnoses / Procedures Referred By Raman t Referred To Contact Diagnoses Malignant neoplasm of overlapping sites of left breast in female, estrogen receptor positive (HCC) Procedures ONCOLOGY MEDICATION AUTHORIZATION Vane Hollingsworth MD [address] [place] [address] Phone: tel: fax: Vane Hollingsworth MD [address] [place] [address] Phone: tel: fax: Referral ID Status Reason Start Date Expiration Date Visits Re quested Visits Authorized [id number] Closed 02/09/2025 02/09/2026 1 1 Encounter Details Date Type Department Care Team (Latest Contact Info) Description 02/09/2025 9:00 AM EDT - 02/09/2025 11:59 PM EDT Hospital Encounter [place] [address] Malignant neoplasm of overlapping sites [...] Noble RN - 02/09/2025 9:00 AM EDT [facility] Discharge Instructions Thank you for [facility]ing [facility] with [facility] care. We hope you [...] infection DON'T WAIT, PLEASE CALL US FIRST [phone]. [FOR URGENT ISSUES PLEASE DO NOT LEAVE A MESSAGE, FOLLOW PROMPTS TO THE DOCTOR [facility]] For Gynecology / Oncology call : [phone] Our hours of operation are Friday - Friday 8:00 AM - 4:30 PM. [facility] [place] [address] [phone] [address] Results for orders placed or [...] Lymph # 2.3 1.2 - 3.9 x10(3)/mcL [place] # 2.3 (H) 0.3 - 0.9 x10(3)/mcL [...] AM EDT Appointment [facility] [place], [place] [id number] 04/15/2025 9:15 AM EDT [facility]ointment [facility] [place], [place] [phone] Vane Hollingsworth MD [address] [place] [address] [phone] documented as of this encounter Visit Diagnoses [...] 02/09/2025 documented in this encounter Care Teams Child Nurse Relationship Specialty Start Date End [facility] [address] [place] [address] PCP - General Clinic/Center - [facility] ([facility]) 12/03/16 Eden Noble RN Registered Nurse Infusion Therapy 02/09/25 02/09/25 documented as of this encounter
--- OUTSIDE RECORDS SUMMARY | 2025-02-14 10:51 | XMS_ITS | Encounter Summary ---
Author Organization [place] [address] Care Team Providers Care Strategic Manager Name Role Phone Rodriguez Lindo Primary Care Provider +1- [phone] Encounter Details Date Type Department Care Team (Latest Contact Info) Description 02/14/2025 10:51 AM EDT - 02/14/2025 11:03 AM EDT Hospital Encounter [facility] [place], [place] [id number] Malignant neoplasm of overlapping sites of left breast in female, estrogen receptor positive (HCC) (Primary Dx); Antineoplastic chemotherapy induced anemia Discharge Disposition: Home or Self Care Social [...] AM EDT Appointment [place] [address] 04/15/2025 9:15 AM EDT [facility]ointment [facility] [place] [address] Vane Hollingsworth MD [address] [place] [address] documented as of this encounter Procedures Procedure Name Priority Date/Time Associated Diagnosis Comments RETICULOCYTE PANEL DIAGNOSTIC Routine 02/14/2025 11:01 AM EDT Antineoplastic chemotherapy induced anemia IRON+TIBC Routine 02/14/2025 11:01 AM EDT Antineoplastic chemotherapy induced anemia CBC WITH DIFF Routine 02/14/2025 11:01 AM EDT Antineoplastic chemotherapy induced anemia FERRITIN Routine 02/14/2025 11:01 AM EDT Antineoplastic chemotherapy induced anemia documented in this encounter Results * (ABNORMAL) RETICULOCYTE PANEL DIAGNOSTIC (02/14/2025 11:01 AM EDT) Retic Cnt Auto 3.9(H) 0.9 - 2.5 % 02/14/2025 11:15 AM EDT [email or web address], [facility] Retic # 135.5(H) 40.0 - 110.0 x10(3)/mcL 02/14/2025 11:15 AM EDT [email or web address], Conject Imm. Retic Fraction % 29.1(H) 3.1 - 17.6 % 02/14/2025 11:15 AM EDT [email or web address], Conject Retic Hgb 35.1 28.0 - 38.0 pg 02/14/2025 11:15 AM EDT [facility], Conject Blood VENOUS STRUCTURE / Unknown Port / Unknown 02/14/2025 11:01 AM EDT 02/14/2025 11:04 AM EDT Narrative [email or web address], [facility] - 02/14/2025 11:15 AM EDT Reticulocyte [...] the youngest reticulocytes having the highest content. (1)Toki, Y., et al. 2017. Int J Hematol 106:116-125. (2)Monico Foy., et al. 2017. Nutrients 9:450. (3)Tayler Echavarria, et al. 2014. Am J Clin Pathol 142:506-512. (4)Evelyn, L., et al. 2010. Blood 116:3704-4172. us Ana Rosa L O'Onur PRODUCTION LINE MANAGER HEMATOLOGY ORDERABLES Ernestine l Result Performing Organization Address City/[facility]/ZIP Co de Phone Number [facility] [email or web address] , [place] [address] * FERRITIN (02/14/2025 11:01 AM EDT) Ferritin 144 30 - 150 ng/mL 02/14/2025 12:02 PM EDT [facility] [email or web address], [facility] Comment:The lower threshold of 30 is not statistically defined, nor internally validated. The threshold has been updated to more closely reflect a physiologic basis. Ebony Z, et al. Physiologically based serum ferritin thresholds for iron deficiency in children and non- women: a [place] National Health and Nutrition Examination Surveys (NHANES) serial cross-sectional study. Lancet Haematol 2021;8:e572-82. Blood VENOUS STRUCTURE / Unknown Port / Unknown 02/14/2025 11:01 AM EDT 02/14/2025 11:04 AM EDT Narrative [facility], [facility] - 02/14/2025 12:02 PM EDT Ingestion of manda doses of biotin (>5 mg/day) taken within 8 hours of drawing blood sample can interfere with this immunoassay test. Ana Rosa Del Angel APRN CHEMISTRY ORDERABLES Final Result Performing Organization Address [facility]/ZIP Co de Phone Number [facility] [email or web address] , [place] [address] * IRON+TIBC (02/14/2025 11:01 AM EDT) Iron 63 30 - 160 mcg/dL 02/14/2025 12:02 PM EDT [email or web address] Transferrin 205 200 - 360 mg/dL 02/14/2025 12:02 PM EDT [facility] [email or web address], [facility] Transferrin Saturation 22 20 - 50 % 02/14/2025 12:02 PM EDT [email or web address] TIBC 287 250 - 400 mcg/dL 02/14/2025 12:02 PM EDT [facility] [email or web address], [facility] Blood VENOUS STRUCTURE / Unknown Port / Unknown 02/14/2025 11:01 AM EDT 02/14/2025 11:04 AM EDT us Ana Rosa Del Angel APRN CHEMISTRY ORDERABLES Final Result [facility] [address] [facility] , [address] [place] [id number] * (ABNORMAL) CBC WITH DIFF (02/14/2025 11:01 AM EDT) WBC 9.3 3.7 - 10.3 x10(3)/mc L 02/14/2025 11:08 AM EDT [facility] RBC 3.50(L) 3.90 - 5.20 x10(6)/mc L 02/14/2025 11:08 AM EDT [facility] Hgb 10.7(L) 11.2 - 15.7 g/dL 02/14/2025 11:08 AM EDT [facility] Hct 34.3 34.0 - 45.0 % 02/14/2025 11:08 AM EDT [facility] MCV 98.0 80.0 - 100.0 fL 02/14/2025 11:08 AM EDT [facility] MCH 30.6 26.0 - 34.0 pg 02/14/2025 11:08 AM EDT [facility] MCHC 31.2 30.7 - 35.5 g/dL 02/14/2025 11:08 AM EDT [facility] RDW 14.9 <=14.9 % 02/14/2025 11:08 AM EDT [facility] Platelet 194 155 - 369 x10(3)/mc L 02/14/2025 11:08 AM EDT [facility] MPV 9.2 8.8 - 12.5 fL 02/14/2025 11:08 AM EDT [facility] Neut # Prelim 6.5(H) 1.6 - 6.1 x10(3)/mc L 02/14/2025 11:08 AM EDT [facility] Comment:Preliminary automate d absolute neutrophil count. Value may change if manual differential is indicated. Neut Percent 70.0 % 02/14/2025 11:08 AM EDT [facility] Comment:Neutrophils equals s egs plus bands Imm Gran% 4.1 % 02/14/2025 11:08 AM EDT [facility] Comment:Automated count of m etamyelocytes, myelocytes and promyelocytes. IG > 3% may predict positive blood cultures with 98% specificity and 92% PPV. Jordana Peña, et al. (2003). Micronesian Journal of Clinical Pathology, 120:5 799 799 Lymph Percent 15.1 % 02/14/2025 11:08 AM EDT [facility] Gregory Percent 10.3 % 02/14/2025 11:08 AM EDT [facility] Eos Percent 0.1 % 02/14/2025 11:08 AM EDT [facility] Baso Percent 0.4 % 02/14/2025 11:08 AM T [facility] Neut # 6.5(H) 1.6 - 6.1 x10(3)/mc L 02/14/2025 11:08 AM EDT [facility] Comment:Neutrophils equals s egs plus bands IMMGRAN# 0.4(H) 0.0 - 0.1 x10(3)/mc L 02/14/2025 11:08 AM EDT [facility] Comment:Automated count of m etamyelocytes, myelocytes and promyelocytes. An absolute IG <0.1 is reported as 0.0. Lymph # 1.4 1.2 - 3.9 x10(3)/mc L 02/14/2025 11:08 AM EDT [facility] [place] # 1.0(H) 0.3 - 0.9 x10(3)/mc L 02/14/2025 11:08 AM EDT [facility] Eos# 0.0 0.0 - 0.5 x10(3)/mc L 02/14/2025 11:08 AM EDT [facility] Baso # 0.0 0.0 - 0.1 x10(3)/mc L 02/14/2025 11:08 AM [facility] Blood VENOUS STRUCTURE / Unknown Port / Unknown 02/14/2025 11:01 AM EDT 02/14/2025 11:04 AM EDT us Ana Rosa Del Angel APRN HEMATOLOGY ORDERABLES Ernestine pinedo Result [facility] [address] [place] [address] documented in this encounter Visit Diagnoses Diagnosis Malignant neoplasm of overlapping sites of left breast in female, estrogen receptor positive (HCC)- Primary Antineoplastic chemotherapy induced anemia documented in this encounter Administered Medications Inactive Administered Medications - up to 1 most recent administrations Medication Order MAR Action Action Date Dose Rate Site heparin flush 100 unit/mL injection 500 Units 500 Units, Intravenous, PRN, Starting on Fri02/14/25 at 1053, Until Fri02/15/25 at 0405, Line Care, For Venous Access Device care and maintenance., Dx: 1. Malignant neoplasm of overlapping sites of left breast in female, estrogen receptor positive (HCC)Indications:Malignant neoplasm of overlapping sites of left breast in female, estrogen receptor positive (HCC) Given 02/14/2025 11:00 AM EDT 500 Units sodium chloride 0.9 % sterile syringe Intravenous, PRN, Starting on Fri02/14/25 at 1053, Until Fri02/15/25 at 0405, Line Care, For initial access of Venous Access Device., Dx: 1. Malignant neoplasm of overlapping sites of left breast in female, estrogen receptor positive (HCC)Indications:Malignant neoplasm of overlapping sites of left breast in female, estrogen receptor positive (HCC) Given 02/14/2025 11:00 AM EDT 10 mL sodium chloride 0.9% syringe Intravenous, PRN, Starting on Fri02/14/25 at 1053, Until Fri02/15/25 at 0405, Line Care, For Venous Access Device care and maintenance., Dx: 1. Malignant neoplasm of overlapping sites of left breast in female, estrogen receptor positive (HCC)Indications:Malignant neoplasm of overlapping sites of left breast in female, estrogen receptor positive (HCC) Given 02/14/2025 11:00 AM EDT 10 mL documented in this encounter Care Teams Strategic Manager Relationship Specialty Start Date End Date Rodriguez Lindo [address] [place] [phone] PCP - General Clinic/Center - [facility] ([facility]) 12/03/16 documented as of this encounter
--- OUTSIDE RECORDS SUMMARY | 2025-02-14 11:04 | XMS_ITS | Encounter Summary ---
Author Organization [place] [address] Care Team Providers Care Kiln Firer Name Role Phone Rodriguez Lindo Primary Care Provider +1- [phone] Reason for Visit * Reason Comments Cancer Here to discuss lab results. Encounter Details Date Type Department Care Team (Latest Contact Info) Description 02/14/2025 11:04 AM EDT - 02/14/2025 11:59 PM EDT Hospital Encounter [facility] [place], [place] [phone] Malignant neoplasm of overlapping sites of left [...] AM EDT Appointment [facility] [place], [place] [phone] 04/15/2025 9:15 AM EDT Appointment [facility] [place] [address] Vane Hollingsworth MD [address] [place] [phone] documented as of this encounter Visit Diagnoses Diagnosis Malignant neoplasm of overlapping sites of left breast in female, estrogen receptor positive (HCC)- Primary documented in this encounter Care Teams Kiln Firer Relationship Specialty Start Date End Date [facility] [address] [place] [address] PCP - General Clinic/Center - [facility] ([facility]) 12/03/16 documented as of this encounter
--- OUTSIDE RECORDS SUMMARY | 2025-02-21 08:13 | XMS_ITS | Encounter Summary ---
Author Organization [place] [address] Care Team Providers Care Supervisor Front Name Role Phone Rodriguez [place] Primary Care Provider +1- [phone] Vane Hollingsworth MD Unavailable +1- [phone] Terri Tay RN Unavailable Unavailable Encounter Details Date Type Department Care Team (Latest Contact Info) Description 02/21/2025 8:13 AM EDT - 02/21/2025 8:26 AM EDT Hospital Encounter [place] [address] Malignant neoplasm of overlapping sites [...] AM EDT Appointment [place] [address] 04/15/2025 9:15 AM EDT [facility]ointment [facility] [place] [address] Vaen Hollingsworth MD [address] [place] [phone] documented as of this encounter Procedures Procedure [...] COMPREHENSIVE METABOLIC PANEL (02/21/2025 8:24 AM EDT) [facility] Sodium 143 136 - 145 mmol/L 02/21/2025 8:46 AM [facility] Potassium 3.9 3.5 - 5.0 mmol/L 02/21/2025 8:46 AM [facility] Chloride 111(H) 98 - 107 mmol/L 02/21/2025 8:46 AM [facility] Total CO2 23 22 - 29 mmol/L 02/21/2025 8:46 AM [facility] Anion Gap 9 7 - 16 mmol/L 02/21/2025 8:46 AM [facility] Calcium 8.8 8.6 - 10.4 mg/dL 02/21/2025 8:46 AM [facility] Glucose Lvl 95 70 - 99 mg/dL 02/21/2025 8:46 AM [facility] BUN 9 6 - 20 mg/dL 02/21/2025 8:46 AM [facility] Creatinine 0.68 0.51 - 1.30 mg/dL 02/21/2025 8:46 AM [facility] Albumin 3.6 3.5 - 5.2 gm/dL 02/21/2025 8:46 AM [facility] Total Protein 5.9(L) 6.4 - 8.3 gm/dL 02/21/2025 8:46 AM [facility] Bili Total <0.2(L) 0.2 - 1.3 mg/dL 02/21/2025 8:46 AM [facility] ALT 11 <=41 U/L 02/21/2025 8:46 AM [facility] AST 18 <=40 U/L 02/21/2025 8:46 AM [facility] Alk Phos 81 36 - 123 U/L 02/21/2025 8:46 AM [facility] eGFR (CKD-EPIcr 2020) 112 >=60 mL/min/1.7 3 m2 02/21/2025 8:46 AM [facility] Comment:Estimated GFR was ca lculated using the CKD-EPIcr (2020) equation refit without race. The equation is recommended by the National Kidney Foundation - [place] [employer] of Nephrology Task Force. Blood VENOUS STRUCTURE / Unknown Port / Unknown 02/21/2025 8:24 AM EDT 02/21/2025 8:26 AM EDT Isaias Miller MD CHEMISTRY ORDERABLES Final Result [facility] [address] [place] [id number] * (ABNORMAL) CBC WITH DIFF (02/21/2025 8:24 AM EDT) WBC 5.6 3.7 - 10.3 x10(3)/mc L 02/21/2025 8:32 AM EDT [facility] RBC 3.19(L) 3.90 - 5.20 x10(6)/mc L 02/21/2025 8:32 AM EDT [facility] Hgb 10.1(L) 11.2 - 15.7 g/dL 02/21/2025 8:32 AM EDT [facility] Hct 31.5(L) 34.0 - 45.0 % 02/21/2025 8:32 AM EDT [facility] MCV 98.7 80.0 - 100.0 fL 02/21/2025 8:32 AM EDT [facility] MCH 31.7 26.0 - 34.0 pg 02/21/2025 8:32 AM EDT [facility] MCHC 32.1 30.7 - 35.5 g/dL 02/21/2025 8:32 AM EDT [facility] RDW 15.9(H) <=14.9 % 02/21/2025 8:32 AM EDT [facility] Platelet 305 155 - 369 x10(3)/mc L 02/21/2025 8:32 AM EDT [facility] MPV 9.0 8.8 - 12.5 fL 02/21/2025 8:32 AM EDT [facility] Neut # Prelim 3.7 1.6 - 6.1 x10(3)/mc L 02/21/2025 8:32 AM EDT [facility] Comment:Preliminary automate d absolute neutrophil count. Value may change if manual differential is indicated. Neut Percent 65.7 % 02/21/2025 8:32 AM EDT [facility] Comment:Neutrophils equals s egs plus bands Imm Gran% 0.2 % 02/21/2025 8:32 AM EDT [facility] Comment:Automated count of m etamyelocytes, myelocytes and promyelocytes. Lymph Percent 14.9 % 02/21/2025 8:32 AM EDT [facility] [place] Percent 18.3 % 02/21/2025 8:32 AM EDT [facility] Eos Percent 0.0 % 02/21/2025 8:32 AM EDT [facility] Baso Percent 0.9 % 02/21/2025 8:32 AM EDT [facility] Neut # 3.7 1.6 - 6.1 x10(3)/mc L 02/21/2025 8:32 AM EDT [facility] Comment:Neutrophils equals s egs plus bands IMMGRAN# 0.0 0.0 - 0.1 x10(3)/mc L 02/21/2025 8:32 AM EDT [facility] Comment:Automated count of m etamyelocytes, myelocytes and promyelocytes. An absolute IG <0.1 is reported as 0.0. Lymph # 0.8(L) 1.2 - 3.9 x10(3)/mc L 02/21/2025 8:32 AM EDT [facility] [place] # 1.0(H) 0.3 - 0.9 x10(3)/mc L 02/21/2025 8:32 AM EDT [facility] Eos# 0.0 0.0 - 0.5 x10(3)/mc L 02/21/2025 8:32 AM T [facility] Baso # 0.1 0.0 - 0.1 x10(3)/mc L 02/21/2025 8:32 AM [facility] Blood VENOUS STRUCTURE / Unknown Port / Unknown 02/21/2025 8:24 AM EDT 02/21/2025 8:26 AM EDT Isaias Miller MD HEMATOLOGY ORDERABLES Final Result [facility] [address] [place] [address] documented in this encounter Visit Diagnoses Diagnosis [...] 02/21/2025 documented in this encounter Care Teams Supervisor Front Relationship Specialty Start Date End Date [facility] [address] [place] [phone] PCP - General Clinic/Center - [facility] ([facility]) 12/03/16 Vane Hollingsworth MD [address] [place] [address] Internal Medicine-Hematology and Oncology 02/21/25 Terri Tay RN Registered Nurse Infusion Therapy 02/21/25 02/21/25 documented as of this encounter
--- OUTSIDE RECORDS SUMMARY | 2025-02-21 08:27 | XMS_ITS | Encounter Summary ---
Author Organization [place] [address] Care Team Providers Care Coremaker Helper Name Role Phone Rodriguez Lindo Primary Care Provider +1- [phone] Vane Hollingsworth MD Unavailable +1- [phone] Terri Tay RN Unavailable Unavailable Reason for Visit * Reason Comments Follow-up Breast Cancer Chemotherapy Encounter Details Date Type Department Care Team (Latest Contact Info) Description 02/21/2025 8:27 AM EDT - 02/21/2025 9:19 AM EDT Hospital Encounter [facility] On[facility] [place], [place] [phone] Vane Hollingsworth MD [address] [place] [address] [phone] Malignant neoplasm of overlapping sites of left [...] note were not included. Patient: Anne Kearney [facility]: [id number] Date of : 1985 Age: 40 y.o. Date of Service: 02/21/2025 HEMATOLOGY/ONCOLOGY PATIENT OFFICE NOTE CURRENT TREATMENT: 12/15/2024 - TC X 4 (first cycle given in [place]) Outside oncology history: Diagnosis Invasive lobular carcinoma, 2 o'clock left breast, Jul 2024 Grade 2 ER 76%, MS 24%, HER-2 0/negative, Ki67 13% Stage IIB; pT2, pN1a Oncotype DX recurrence score: 17 [facility] BRCA 1/2 CancerNext genetic test: Positive pathogenic mutation detected: BRCA2 History Hepatitis C-treated Treatment Summary 07/29/24 Bilateral mastectomies with positive (09/13) left axillary SLNB by Dr Giovanna Tolentino/[facility] General Surgery 08/16/24 Initiated endocrine hormone therapy with Tamoxifen 20mg daily by Dr Oliverio Precsott/[facility] Medical Oncology 10/01/24 Prophylactic total hysterectomy with bilateral salpino-oophorectomy by Dr Ministerio Gamino/[facility] GAS STATION SERVICE ATTENDANT 10/11/24 - 12/01/24 Completed adjuvant radiation therapy with 5040cGy over 28 fractions to left breastby Dr Angelito Pierson/[facility] Radiation Oncology 10/18/24 Discontinue Tamoxifen. Initiate Letrozole 2.5mg daily by Dr Oliverio Prescott/[facility] Medical Oncology. 12/15/24 Taxotere, Cyclophosphamide [...] on cc view 06/18/24 US left breast/axilla ([facility]): Targeted LEFT breast ultrasound 3:00 position, 5 [...] nipple, core needle biopsies: Invasive lobular carcinoma. [place] histologic score Glandular differentiation: Score 3. Nuclear pleomorphism: Score 2. Mitotic rate: Score 1. Overall grade: Grade 2. Maximum tumor diameter is at least 1.4 cm. ER 76%, MS 24%, HER-2 0/negative, Ki67 13% 06/29/24 MRI bilateral breast ([facility]): The breast tissue is heterogeneously dense with [...] axillary or internal mammary lymphadenopathy identified. 06/29/24 [facility] [employer] / CancerNext genetic test: Positive pathogenic mutation detected: BRCA2 Bilateral mastectomies with positive (09/13) left axillary SLNB by Dr Giovanna Tolentino/[facility] General Surgery 07/29/24 Left breast, [...] with Tamoxifen 20mg daily by Dr Oliverio Prescott/[facility] Medical Oncology 08/16/24 [facility] labs: CEA 3.75, CA 27-29 14; CBC-WBC 14.6; ANC 8.7; ALC 4.2; Hgb 12.1; MCV 88.9; platelets 361,000; CMP WNL; ferritin 19, iron 34, fe sat 7% 08/18/24 CT chest ([facility]): No evidence of metastatic disease in the chest. Postoperative change of bilateral mastectomy. 08/18/24 CT abd/pelvis ([facility]): No evidence of metastatic disease in the abdomen or pelvis. 08/18/24 Bone scan ([facility]): No evidence of osteoblastic metastatic disease by bone scan. 08/30/24 Oncotype DX recurrence score: 17 09/16/[address] Angelito Pierson/[facility] Radiation Oncology who recommended adjuvant radiation therapy with 5040 cGy over 28 fractions to left breast/[facility] wall [facility]. 09/20/[address] Oliverio Prescott/[facility] Medical Oncology who recommended referral to GAS STATION SERVICE ATTENDANT for prophylactic hysterectomy due to positive BRCA2 [...] + Ribociclib + Zometa. 09/27/24 Bone density ([facility]): Normal 10/01/24 Prophylactic total hysterectomy with bilateral salpino-oophorectomy by Dr Ministerio Gamino/[facility] GAS STATION SERVICE ATTENDANT 10/01/24 Uterus, cervix, bilateral tubes and ovaries, hysterectomy and bilateral salpingo-oophorectomy: Chronic cervicitis. Proliferative endometrium. Endometrial polyp. Adenomyosis. Completely transected right and left fallopian tubes and unremarkable fimbrial epithelial surface. Mesonephric cyst associated both left and right fallopian tubes. Corpora albicantia of right ovary.Corpora albicantia and 1 corpus hemorrhagicum of left ovary. Uterine weight of 141.7 g. 10/03/24 CT abd/pelvis ([facility]): Moderate pneumoperitoneum with scattered extraperitoneal [...] fractions to left breast by Dr Angelito Pierson/[facility] Radiation Oncology 10/18/24 Follow-up evaluation with Dr Oliverio Prescott/[facility] Medical Oncology who recommended to discontinue Tamoxifen, initiate Letrozole 2.5mg daily and to anticipate adjuvant Taxotere 75mg/m2, Cyclophosphamide 600mg/m2 every 3 weeks x4 cycles 10/18/24 Discontinue Tamoxifen. Initiate Letrozole 2.5mg daily by Dr Oliverio Prescott/[facility] Medical Oncology 11/03/24 CT chest ([facility]): No acute abnormality in the chest. 11/03/24 US venous doppler upper right extremity ([facility]): There is no evidence of deep venous thrombosis of the right upper extremity. There is partial nonocclusive superficial thrombus in the cephalic vein. 12/01/24 Completed adjuvant radiation therapy with 5040cGy over 28 fractions to left breast by Dr Angelito Pierson/[facility] Radiation Oncology 12/15/24 First dose of TC HISTORY OF PRESENT ILLNESS: CC: Chief Complaint Patient presents with Follow-up Breast Cancer Chemotherapy Patient is a 40 y.o. female who presents for breast cancer follow up and treatment. First dose of TC in [place] and moved locally and here to [...] and [place] No nausea, some abdominal discomfort +BM last night normal To see new PCP on 01/30 in [place] - Dr. Garza - this did Interval hx: Heightended pain with tx, drowsiness, poor appetite. Has scheduled pain visit on 03/[address] Neves in [place]? HISTORY: Medical, Surgical, Social, Family histories were [...] o'clock left breast, Grade 2, ER 76%, MS 24%, HER-2 0/negative, Ki67 13%, pT2, pN1a [...] visit on 03/[address] Neves in [place]? Dispo: Return for schedule next cycle and fluids lorena end of this week. Thank you for the opportunity to assist in the care of this patient, please feel free to contact meif I can be of any assistance. Vane Hollingsworth MD Hematology and Medical Oncology [facility] documented in this encounter Miscellaneous Notes * Addendum Note - Cecy Rutledge RN - 02/21/2025 9:00 AM EDTEncounter addended by: Cecy Rutledge RN on: 02/24/2025 3:04 PM Actions taken: Order list changed, Treatment plan modified documented in this encounter Plan of Treatment Upcoming Encounters Date Type Department Care Team (Late st Contact Info) Description 04/15/2025 8:45 AM EDT Appointment [place] [address] 04/15/2025 9:15 AM EDT [facility]ointment [facility] [place] [address] Vane Hollingsworth MD [address] [place] [address] documented as of this encounter Visit Diagnoses Diagnosis Malignant neoplasm of overlapping sites of left breast in female, estrogen receptor positive (HCC)- Primary documented in this encounter Care Teams Coremaker Helper Relationship Specialty Start Date End Date Rodriguez Lindo [address] [place] [phone] PCP - General Clinic/Center [facility] 12/03/16 Vane Hollingsworth MD [address] [place], [place] [phone] Internal Medicine-Hematology and Oncology 02/21/25 Terri Tay, RN Registered Nurse Infusion Therapy 02/21/25 02/21/25 documented as of this encounter
--- OUTSIDE RECORDS SUMMARY | 2025-02-21 09:20 | XMS_ITS | Encounter Summary ---
Author Organization [place] [address] Care Team Providers Care Diesel Tractor Operator Name Role Phone Rodriguez Lindo Primary Care Provider +1- [phone] Vane Hollingsworth MD Unavailable +1- [phone] Terri Tay RN Unavailable Unavailable Reason for Visit * Oncology Medication Prior Authorization (Routine) - Authorized Specialty Diagnoses / Procedures Referred By Contac t Referred To Contact Diagnoses Malignant neoplasm of overlapping sites of left breast in female, estrogen receptor positive (HCC) Procedures ONCOLOGY MEDICATION AUTHORIZATION Vane Hollingsworth MD [address] [place] [address] Phone: tel: fax: Vane Hollingsworth MD [address] [place] [address] Phone: tel: fax: Referral ID Status Reason Start Date Expiration Date V isits Requested Visits Authorized [id number] Authorized 01/21/2025 01/21/2026 1 6 Encounter Details Date Type Department Care Team (Latest Contact Info) Description 02/21/2025 9:20 AM EDT - 02/21/2025 11:59 PM EDT Hospital Encounter [place] [address] Malignant neoplasm of overlapping sites [...] Sign Reading Time Taken Comments Blood Pressure 125/73 02/21/2025 11:48 AM EDT Pulse 76 02/21/2025 11:48 AM EDT Temperature - - Respiratory Rate 17 02/21/2025 11:48 AM EDT Oxygen Saturation 98% 02/21/2025 11:48 AM EDT Inhaled Oxygen Concentration - - [...] encounter Miscellaneous Notes * Patient Instructions - Vane Romero RN - 02/21/2025 9:30 AM EDT [facility] Discharge Instructions Thank you for entrusting the [facility] with your care. We hope you are pleased with your outpatient care and services. Because we are most concerned with your health, we suggest you carefully read the following discharge instructions: Your Discharge Instructions: MEDICATION INSTRUCTIONS: Treatment received today: Orders Placed This Encounter 0.9 % NaCl infusion palonosetron (ALOXI) injection 0.25 mg dexAMETHasone (DECADRON) tablet 12 mg DOCEtaxeL (TAXOTERE) 140 mg in sodium chloride 0.9 % 250 mL chemo infusion cycloPHOSphamide (CYTOXAN) 1,100 mg in sodium chloride 0.9 % 116 mL chemo infusion sodium chloride 0.9% syringe 10 mL heparin flush 100 unit/mL injection 500 Units Reviewed medications administered today and possible side [...] infection DON'T WAIT, PLEASE CALL US FIRST [phone]. [FOR URGENT ISSUES PLEASE DO NOT LEAVE A MESSAGE, FOLLOW PROMPTS TO THE DOCTOR R PROGRAMMER] For Gynecology / Oncology call : [phone] Our hours of operation are Friday - Friday 8:00 AM - 4:30 PM. [place] [address] [phone] [address] [place] [address] Results for orders placed or performed during the hospital encounter of 02/21/25 CBC WITH DIFF Result Value Ref Range WBC 5.6 3.7 - 10.3 x10(3)/mcL RBC 3.19 (L) 3.90 - 5.20 x10(6)/mcL Hgb 10.1 (L) 11.2 - 15.7 g/dL Hct 31.5 (L) 34.0 - 45.0 % MCV 98.7 80.0 - 100.0 fL MCH 31.7 26.0 - 34.0 pg MCHC 32.1 30.7 - 35.5 g/dL RDW 15.9 (H) <=14.9 % Platelet 305 155 - 369 x10(3)/mcL MPV 9.0 8.8 - 12.5 fL Neut # Prelim 3.7 1.6 - 6.1 x10(3)/mcL Neut Percent 65.7 % Imm Gran% 0.2 % Lymph Percent 14.9 % [place] Percent 18.3 % Eos Percent 0.0 % Baso Percent 0.9 % Neut # 3.7 1.6 - 6.1 x10(3)/mcL IMMGRAN# 0.0 0.0 - 0.1 x10(3)/mcL Lymph # 0.8 (L) 1.2 - 3.9 x10(3)/mcL [place] # 1.0 (H) 0.3 - 0.9 x10(3)/mcL Eos# 0.0 0.0 - 0.5 x10(3)/mcL Baso # 0.1 0.0 - 0.1 x10(3)/mcL COMPREHENSIVE METABOLIC PANEL Result Value Ref Range Sodium 143 136 - 145 mmol/L Potassium 3.9 3.5 - 5.0 mmol/L Chloride 111 (H) 98 - 107 mmol/L Total CO2 23 22 - 29 mmol/L Anion Gap 9 7 - 16 mmol/L Calcium 8.8 8.6 - 10.4 mg/dL Glucose Lvl 95 70 - 99 mg/dL BUN 9 6 - 20 mg/dL Creatinine 0.68 0.51 - 1.30 mg/dL Albumin 3.6 3.5 - 5.2 gm/dL Total Protein 5.9 (L) 6.4 - 8.3 gm/dL Bili Total <0.2 (L) 0.2 - 1.3 mg/dL ALT 11 <=41 U/L AST 18 <=40 U/L Alk Phos 81 36 - 123 U/L eGFR (CKD-EPIcr 2020) 112 >=60 mL/min/1.73 m2 documented in this encounter Plan of Treatment Upcoming Encounters Date Type Department Care Team (Late st Contact Info) Description 04/15/2025 8:45 AM EDT Appointment [place] [address] 04/15/2025 9:15 AM EDT Appointment [facility] [place], [place] [phone] Vane Hollingsworth MD [address] [place] [address] [phone] documented as of this encounter Visit Diagnoses Diagnosis Malignant neoplasm of overlapping sites of left breast in female, estrogen receptor positive (HCC)- Primary documented in this encounter Administered Medications Inactive Administered Medications - up to 1 most recent administrations Medication Order MAR Action Action Date Dose Rate Site 0.9 % NaCl infusion Intravenous, at 30 mL/hr, CONTINUOUS, Starting on Fri02/21/25 at 1000, Until Fri02/22/25 at 0411, For pipe line inspector during chemotherapy infusion., Dx: 1. Malignant neoplasm of overlapping sites of left breast in female, estrogen receptor positive (HCC)Indications:Malignant neoplasm of overlapping sites of left breast in female, estrogen receptor positive (HCC) New Bag 02/21/2025 9:51 AM EDT 30 mL/hr cycloPHOSphamide (CYTOXAN) 1,100 mg in sodium chloride 0.9 % 116 mL chemo infusion 1,100 mg (rounded from 1,158 mg = 600 mg/m2 1.93 m2 Treatment Plan BSA from Recorded weight), Intravenous, at 232 mL/hr, ONCE, 1 dose, On Fri02/21/25 at 1130, Follow Chemotherapy Precautions (Caution - Irritant), Dx: 1. Malignant neoplasm of overlapping sites of left breast in female, estrogen receptor positive (HCC)Indications:Malignant neoplasm of overlapping sites of left breast in female, estrogen receptor positive (HCC) IV Started 02/21/2025 11:18 AM EDT 1,100 mg 232 mL/hr dexAMETHasone (DECADRON) tablet 12 mg 12 mg, Oral, ONCE, 1 dose, On Fri02/21/25 at 1000, Dx: 1. Malignant neoplasm of overlapping sites of left breast in female, estrogen receptor positive (HCC)Indications:Malignant neoplasm of overlapping sites of left breast in female, estrogen receptor positive (HCC) Given 02/21/2025 9:56 AM EDT 12 mg DOCEtaxeL (TAXOTERE) 140 mg in sodium chloride 0.9 % 250 mL chemo infusion 140 mg (rounded from 144.75 mg = 75 mg/m2 1.93 m2 Treatment Plan BSA from Recorded weight), Intravenous, at 282 mL/hr, ONCE, 1 dose, On Fri02/21/25 at 1030, Follow Chemotherapy Precautions (Caution - Irritant) Vitals before and after infusion., Dx: 1. Malignant neoplasm of overlapping sites of left breast in female, estrogen receptor positive (HCC)Indications:Malignant neoplasm of overlapping sites of left breast in female, estrogen receptor positive (HCC) IV Started 02/21/2025 10:09 AM EDT 140 mg 282 mL/hr heparin flush 100 unit/mL injection 500 Units 500 Units, Intravenous, PRN, Starting on Fri02/21/25 at 0945, Until Fri02/22/25 at 0411, Line Care, For Venous Access Device care and maintenance., Dx: 1. Malignant neoplasm of overlapping sites of left breast in female, estrogen receptor positive (HCC)Indications:Malignant neoplasm of overlapping sites of left breast in female, estrogen receptor positive (HCC) Given 02/21/2025 11:51 AM EDT 500 Units palonosetron (ALOXI) injection 0.25 mg 0.25 mg, Intravenous, ONCE, 1 dose, On Fri02/21/25 at 1000, Dx: 1. Malignant neoplasm of overlapping sites of left breast in female, estrogen receptor positive (HCC)Indications:Malignant neoplasm of overlapping sites of left breast in female, estrogen receptor positive (HCC) Given 02/21/2025 9:56 AM EDT 0.25 mg documented in this encounter Orders Medications Ordered That Jose Angel ht Not Have Been Administered Count Last Ordered Date First Ordered Date sodium chloride 0.9% syringe 10 mL 1 2024 documented in this encounter Care Teams Diesel Tractor Operator Relationship Specialty Start Date End Date Rodriguez Lindo [address] [place] [id number] PCP - General Clinic/Center - [facility] ([facility]) 12/03/16 Vane Hollingsworth MD [address] [place], [place] [phone] Internal Medicine-Hematology and Oncology 02/21/25 Terri Tay, RN Registered Nurse Infusion Therapy 02/21/25 02/21/25 documented as of this encounter
--- OUTSIDE RECORDS SUMMARY | 2025-02-22 13:14 | XMS_ITS | Encounter Summary ---
Author Organization [place] [address] Care Team Providers Care Materials Planner Name Role Phone Rodriguez Lindo Primary Care Provider +1- [phone] Vane Hollingsworth MD Unavailable +1- [phone] Moriah Woods RN Unavailable Unavailabl e Reason for Visit * Oncology Medication Prior Authorization (Routine) - Authorized Specialty Diagnoses / Procedures Referred By Contac t Referred To Contact Diagnoses Malignant neoplasm of overlapping sites of left breast in female, estrogen receptor positive (HCC) Procedures ONCOLOGY MEDICATION AUTHORIZATION Vane Hollingsworth MD [address] [place] [address] Phone: tel: fax: Vane Hollingsworth MD [address] [place] [address] Phone: tel: fax: Referral ID Status Reason Start Date Expiration Date V isits Requested Visits Authorized [id number] Authorized 01/21/2025 01/21/2026 1 6 Encounter Details Date Type Department Care Team (Latest Contact Info) Description 02/22/2025 1:14 PM EDT - 02/22/2025 11:59 PM EDT Hospital Encounter [place] [address] Malignant neoplasm of overlapping sites [...] Woods RN - 02/22/2025 1:30 PM EDT [facility] Discharge Instructions Thank you for entrusting the [facility] with your care. We hope [...] infection DON'T WAIT, PLEASE CALL US FIRST [phone]. [FOR URGENT ISSUES PLEASE DO NOT LEAVE A MESSAGE, FOLLOW PROMPTS TO THE DOCTOR DIABETES PHYSICIAN] For Gynecology / Oncology call : [phone] Our hours of operation are Friday - Friday 8:00 AM - 4:30 PM. [facility] [id number] [place] [address] 322 [phone] [place] [address] No results found for any visits on 02/22/25. documented in this encounter Plan of Treatment Upcoming Encounters Date Type Department Care Team (Late st Contact Info) Description 04/15/2025 8:45 AM EDT Appointment [facility] [place], [place] [id number] 04/15/2025 9:15 AM EDT [facility]ment [facility] [place] [address] Vane Hollingsworth MD [address] [place] [address] documented as of this encounter Visit Diagnoses [...] 02/22/2025 documented in this encounter Care Teams Materials Planner Relationship Specialty Start Date End Date [facility] [address] [place] [id number] PCP - General Clinic/Center - [facility] ([facility]) 12/03/16 Vane Hollingsworth MD [address] [place] [address] Internal Medicine-Hematology and Oncology 02/21/25 Moriah Woods, RN Registered Nurse Infusion Therapy 02/22/25 02/22/25 documented as of this encounter
--- OUTSIDE RECORDS SUMMARY | 2025-02-27 22:52 | XMS_ITS | Encounter Summary ---
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 Pt denies fever, chills, N/V/D, abdominal pain, urinary symptoms, headache, chest pain, SOA. 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 [...] medications to the pharmacy Disposition Discharge AVS (Upper Sorbian Snapshot) - Printed 02/28/2025 ED Prescriptions Medication [...] worsening. 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 Chemo last Friday-performed in [place], [place] (states she has a couple of [...] LAB HEMATOLOGY METHOD 02/27/2025 11:[address] [facility] Platelet Estimate Platelet smear estimate consistent with automated count LAB HEMATOLOGY METHOD 02/27/2025 11:[address] [facility] Blood Venous blood specimen / Unknown Venipuncture / Unknown 02/27/2025 11:23 PM EDT 02/27/2025 11:25 PM EDT us García Matias MD LAB BLOOD ORDERABLES Final Result [facility] [address] [place] [id number] * (ABNORMAL) Manual Differential (02/27/2025 11:23 PM EDT) Blasts % 0 % LAB HEMATOLOGY METHOD 02/27/2025 11:[address] [facility] Promyelocytes % 0 % LAB [...] LAB HEMATOLOGY METHOD 02/27/2025 11:[address] [facility] Promyelocytes Absolute 0.00 10*3/uL LAB [...] BLOOD ORDERABLES Final Result Performing Organization Address City/[facility]/ZIP Co de Phone Number [facility] [address] [place] [address] * hCG qualitative (02/27/2025 11:23 PM EDT) Test Negative Negative 02/27/2025 11:47 PM EDT [facility] Blood Venous blood specimen / Unknown Venipuncture / Unknown 02/27/2025 11:23 PM EDT 02/27/2025 11:25 PM EDT Narrative [facility] - 02/27/2025 11:47 PM EDT Reference Range: Males and non- females: Negative. García Matias MD LAB BLOOD ORDERABLES Final Result Performing Organization Address City/[facility]/ZIP Co de Phone Number [facility] [address] [place] [address] * Magnesium (02/27/2025 11:23 PM EDT) Magnesium, Plasma 2.2 1.9 - 2.4 mg/dL 02/27/2025 11:47 PM EDT [facility] Blood Venous blood specimen / Unknown Venipuncture / Unknown 02/27/2025 11:23 PM EDT 02/27/2025 11:25 PM EDT García Matias MD LAB BLOOD ORDERABLES Final Result Performing Organization Address City/[facility]/ZIP Co de Phone Number [facility] [address] [place] [address] * (ABNORMAL) CMP (02/27/2025 11:23 PM EDT) Glucose, Plasma 110(H) 74 - 99 mg/dL 02/27/2025 11:[address] [facility] BUN, Plasma 11 7 - 21 mg/dL 02/27/2025 11:[address] [facility] Creatinine, Plasma 0.80 0.60 - 1.10 mg/dL 02/27/2025 11:[address] [facility] BUN/Creatinine Ratio 14 02/27/2025 11:[address] [facility] Sodium, Plasma 142 136 - 145 mmol/L 02/27/2025 11:[address] [facility] Potassium, Plasma 4.5 3.6 - 4.9 mmol/L 02/27/2025 11:[address] [facility] Chloride, Plasma 105 97 - 107 mmol/L 02/27/2025 11:[address] [facility] CO2, Plasma 26 22 - 29 mmol/L 02/27/2025 11:[address] [facility] Anion Gap 11 6 - 16 mmol/L 02/27/2025 11:[address] [facility] Total Calcium, Plasma 9.3 8.9 - 10.2 mg/dL 02/27/2025 11:[address] [facility] Total Protein 6.1(L) 6.3 - 7.9 g/dL 02/27/2025 11:[address] [facility] Albumin, Plasma 3.9 3.5 - 5.2 g/dL 02/27/2025 11:[address] [facility] AST, Plasma 29 10 - 35 U/L 02/27/2025 11:[address] [facility] ALT, Plasma 27 10 - 35 U/L 02/27/2025 11:[address] [facility] Alkaline Phosphatase, Plasma 132(H) 35 - 104 U/L 02/27/2025 11:[address] [facility] Total Bilirubin, Plasma <0.2(L) 0.2 - 1.1 mg/dL 02/27/2025 11:[address] [facility] eGFRcr 95.1 mL/min/1.7 3m*2 02/27/2025 11:[address] [facility] Comment:Reported eGFRcr in m L/min/1.73m2 is based the CKD-EPI 2020 equation that does not use a race coefficient. Blood Venous blood specimen / Unknown Venipuncture / Unknown 02/27/2025 11:23 PM EDT 02/27/2025 11:25 PM EDT us García Matias MD LAB BLOOD ORDERABLES Final Result [facility] [address] [place] [address] * (ABNORMAL) CBC w/diff (02/27/2025 11:23 PM EDT) WBC Count 7.30 3.70 - 10.30 10*3/uL LAB HEMATOLOGY METHOD 02/27/2025 11:[address] [facility] RBC Count 3.21(L) 3.90 - 5.20 10*6/uL LAB HEMATOLOGY METHOD 02/27/2025 11:[address] [facility] HGB 9.9(L) 11.2 - 15.7 g/dL LAB HEMATOLOGY METHOD 02/27/2025 11:[address] [facility] HCT 29.9(L) 34.0 - 45.0 % LAB HEMATOLOGY METHOD 02/27/2025 11:[address] [facility] Platelet Count 230 155 - 369 10*3/uL LAB HEMATOLOGY METHOD 02/27/2025 11:[address] [facility] MCV 93 79 - 98 fL LAB HEMATOLOGY METHOD 02/27/2025 11:[address] [facility] MCH 30.8 26.0 - 32.0 pg LAB HEMATOLOGY METHOD 02/27/2025 11:[address] [facility] MCHC 33.1 30.7 - 35.5 g/dL LAB HEMATOLOGY METHOD 02/27/2025 11:[address] [facility] RDW 15.3(H) 11.5 - 14.5 % LAB HEMATOLOGY METHOD 02/27/2025 11:[address] [facility] MPV 10.4 8.8 - 12.5 fL LAB HEMATOLOGY METHOD 02/27/2025 11:[address] [facility] nRBC 1.9(H) <=0.0 per 100 WBCs LAB HEMATOLOGY METHOD 02/27/2025 11:[address] [facility] Differential Type Manual LAB HEMATOLOGY METHOD 02/27/2025 11:[address] [facility] Blood Venous blood specimen / Unknown Venipuncture / Unknown 02/27/2025 11:23 PM EDT 02/27/2025 11:25 PM EDT Narrative [facility] - 02/27/2025 11:58 PM EDT Therapeutic decision making should be based on absolute values, rather than percentages. us García Matias MD LAB BLOOD ORDERABLES Final Result [facility] [address] [place] [id number] documented in this encounter Visit Diagnoses Diagnosis [...] Pagan) documented in this encounter Care Teams Visualizer Relationship Specialty Start Date End Date Pcp, No [address] [place] [address] PCP - General Family Medicine 02/07/25 documented as of this encounter
--- OUTSIDE RECORDS SUMMARY | 2025-03-02 14:30 | XMS_ITS | Encounter Summary ---
[facility] Address [address] [place] [address] Care Team Providers Care Digital Coordinator Name Role Phone Juan Luis Garza MD Primary Care Provider [phone] Reason for Referral * Pain Management (Routine) - Authorized Specialty Diagnoses / Procedures Referred By Raman jesus Referred To Contact Pain Medicine Diagnoses Bilateral hip pain Chronic bilateral thoracic back pain Neck pain Procedures NV OFFICE/OUTPATIENT NEW MODERATE MDM 45 MINUTES Juan Luis Garza MD [address] [place] [address] Phone: tel: fax: [facility] [place] [place] [address] Phone: tel: fax: Referral ID Status Reason Start Date Expiration Date Visits Requested Visits Authorized [id number] Authorized Specialty Services Required 03/02/2025 06/01/2026 1 1 * Consultation (Routine) - Authorized Specialty Diagnoses / Procedures Referred By Raman jesus Referred To Contact Oncology Diagnoses Malignant neoplasm of left breast in female, estrogen receptor positive, unspecified site of breast Procedures NV OFFICE/OUTPATIENT NEW MODERATE MDM 45 MINUTES Juan Luis Garza MD [address] [place] [address] Phone: tel: fax: [facility] [address] [facility] [address] [place] [address] Phone: tel: fax: Referral ID Status Reason Start Date Expiration Date V isits Requested Visits Authorized [id number] Authorized 03/02/2025 06/01/2026 2 2 Reason for Visit * Reason Comments Establish Care Encounter Details Date Type Department Care Team (Late st Contact Info) Description 03/02/2025 2:30 PM EDT Office Visit [facility] FAMILY [facility] [address] [facility] [address] [place] [id number] Juan Luis Garza MD [address] [facility] [address] [place], [place] [id number] Malignant neoplasm of left breast in female, estrogen receptor positive, unspecified site of breast (Primary Dx); Bilateral hip pain; Chronic bilateral thoracic back pain; Neck pain; Pelvic pain; Depression with anxiety; Pulmonary emphysema, unspecified emphysema type; Insomnia, unspecified type Social History Tobacco Use Types Packs/Day Years Used Date Smoking Tobacco: Former Cigarettes 0.5 29.6 0 01/17/1995 - 08/19/2024 Passive Smoke Exposure: Past Smokeless Tobacco: Never Tobacco Cessation:Counseling Given: Yes Alcohol Use Standard Drinks/Week Comments [...] or training? Not on file Preferred Language Taiwanese 09/27/2024 PHQ-2 Answer Date Recorded Patient Health Questionnaire-2 Score 0 10/18/2024 Comments No Sex and Gender Information Value Date Recorded Sex Assigned at Female 02/26/2025 10:23 PM EDT Legal Sex Female 10:15 PM EDT Gender Identity Not on file Sexual Orientation Straight 02/26/2025 10 :23 PM EDT documented as of this encounter Last Filed Vital Signs Vital Sign Reading Time Taken Comments Blood Pressure 112/64 03/02/2025 1:59 PM EDT Pulse 86 03/02/2025 1:59 PM EDT Temperature 37.4 C (99.3 F) 03/02/2025 1:59 PM EDT Respiratory Rate - - Oxygen Saturation 98% 03/02/2025 1:59 PM EDT Inhaled Oxygen Concentration - - Weight 79.6 kg (175 lb 6.4 oz) 03/02/2025 1:59 P M EDT Height 167.6 cm (5' 6 ) 03/02/2025 1:59 PM EDT Body Mass Index 28.31 03/02/2025 1:59 PM EDT documented in this encounter Progress Notes * Juan Luis Garza MD - 03/04/2025 4:40 PM EDTAssociated Problem(s): Malignant neoplasm of female breast For skin complete her last round of chemotherapy with her oncologist that she is currently following with. She would like a referral to establish care with an oncologist here in [place] with [facility] once chemotherapy has been completed for further follow-up. Referral was placed today. * Juan Luis Garza MD - 03/04/2025 4:39 PM EDTAssociated Problem(s): Insomnia Moran that the trazodone 100 mg was making her too sleepy the following day for her to be able to take it at night. Patient was given prescription for 50 mg trazodone and advised to start with 25 mg nightly if she tolerates this well and sleeps well with this dose to stay at this dose but if she tolerates it well but is not sleeping well to increase to 50 mg nightly. Patient follow-up in 3 months. * Juan Luis Garza MD - 03/04/2025 4:39 PM EDTAssociated Problem(s): Emphysema lung COPD is poorly. Plan: Patient will begin Symbicort 2 puffs twice daily and will continue to use albuterol Hailer as needed. Discussed medication dosage, use, side effects, and goals of treatment in detail. Warning signs of respiratory distress were reviewed with the patient. . Patient Treatment Goals: symptom prevention, minimizing limitation in activity, prevention of exacerbations and use of ER/inpatient care, maintenance of optimal pulmonary function, and minimization of adverse effects of treatment Followup in 3 months. * Juan Luis Garza MD - 03/04/2025 4:38 PM EDTAssociated Problem(s): Chronic thoracic back pain Patient has chronic pain in multiple joints. She will continue ibuprofen and Percocet. Patient was given referral to pain management to establish with a provider here in town to take over writing herPercocet. Patient will be given a refill in order to give her time to get in to see a new provider.Jerome was reviewed and appropriate. * Juan Luis Garza MD - 03/04/2025 4:37 PM EDTAssociated Problem(s): Depression with anxiety Patient's depression is a recurrent episode that is moderate without psychosis. Depression is in partial remission and improving with treatment. Plan: Continue current medication therapy Followup in 3 months. * Juan Luis Garza MD - 03/02/2025 2:30 PM EDT Anne Kearney is a 40 y.o. female who presents today to establish care. Chief Complaint Patient presents with [facility] Care HPI She moved here from [facility] and needs to establish care. She has one more round of chemo for breast cancer but will need an oncologist here in [facility]. She was initially being seen in [place] but then moved up here. She struggles with chronic bilateral hip pain, neck pain, and low back pain and has been following with pain management in [place] and needs a provider here in [facility]. She also has some pain thought to be related to the cancer so her oncologist has been writing the percocet 10mf fourtimes daily. She needs a refill on this until she can get into the pain clinic. Percocet and ibuprofen control pain well. She was treated for Hep C in the past. She has history of meth and heroine use but has not used since 2019 for meth and 2018 for heroine. She has been told she has emphysema andhas been using albuterol inhaler but does not feel like this helps much. She has been on a daily inhaler in the past but not tolerate due to the taste. She has depression and anxiety and has been taking wellbutrin which she feels works well. She has been on trazodone 100mg for years for insomnia. She states that these make her too sleepy the next day until around lunch but did help her sleep. Shewas given an order for veozah for hot flashes but has not been able to pick it up. She would like to try this bc the oxybutynin they gave here and this has not been helpful. Review of Systems Constitutional: Negative for fever and unexpected weight loss. HENT: Negative for congestion, ear pain and sore throat. Eyes: Negative for visual disturbance. Respiratory: Negative for cough, shortness of breath and wheezing. Cardiovascular: Negative for chest pain and palpitations. Gastrointestinal: Negative for abdominal pain, blood in stool, constipation, diarrhea, nausea, vomiting and GERD. Endocrine: Negative for polydipsia and polyuria. Genitourinary: Negative for difficulty urinating. Musculoskeletal: Positive for arthralgias, back pain and neck pain. Negative for joint swelling. Skin: Negative for rash and skin lesions. Allergic/Immunologic: Negative for environmental allergies. Neurological: Positive for headache. Negative for seizures and syncope. Hematological: Does not bruise/bleed easily. Psychiatric/Behavioral: Positive for sleep disturbance. Negative for suicidal ideas. 10/18/2024 2:38 PM PHQ-2/PHQ-9 Depression Screening Little interest or pleasure in doing things Not at all Feeling down, depressed, or hopeless Not at all Past Medical History: Diagnosis Date ADHD (attention deficit hyperactivity disorder) 1989 Allergic 2003 Anxiety Anxiety Arthritis Asthma Breast cancer Bronchitis Cancer breast left Degenerative disc disease, lumbar c1, l3, l4, l5, s1 Depression Elevated cholesterol Emphysema lung GERD (gastroesophageal reflux disease) Headache 1998 Heart murmur 1983 When I was born Hyperlipidemia Low back pain 2008 Scoliosis Past Surgical History: Procedure Laterality Date BREAST BIOPSY Right 2001 BREAST BIOPSY Left 2023 COLONOSCOPY N/A 12/27/2021 Procedure: COLONOSCOPY WITH ANESTHESIA; Surgeon: Tamera Smith MD; Location: [facility]; Service: Gastroenterology; Laterality: N/A; preop; change in bowel habits postop; normal PCP Neil Puri ENDOSCOPY N/A 12/27/2021 Procedure: ESOPHAGOGASTRODUODENOSCOPY WITH ANESTHESIA; Surgeon: Tamera Smith MD; Location: [facility]; Service: Gastroenterology; Laterality: N/A; preop; change in bowel habits postop; normal PCP Neil Puri LYMPH NODE BIOPSY 2023 MASTECTOMY W/ SENTINEL NODE BIOPSY Bilateral 07/29/2024 Procedure: Bilateral Mastectomy with Left Axillary Magtrace Guided [place] Lymph Node Biopsy; Surgeon: Giovanna Tolentino MD; Location: [facility] OR; Service: General; Laterality: Bilateral; TOTAL LAPAROSCOPIC HYSTERECTOMY SALPINGO OOPHORECTOMY N/A 10/01/2024 Procedure: TOTAL LAPAROSCOPIC HYSTERECTOMY BILATERAL SALPINGOOPHORECTOMY WITH DAVINCI ROBOT; Surgeon: Ministerio Gamino MD; Location: [facility] OR; Service: Robotics - DaVinci; Laterality: N/A; TUBAL ABDOMINAL LIGATION Bilateral 2004 VENOUS ACCESS DEVICE (PORT) INSERTION N/A 10/27/2024 Procedure: Single Lumen Port-a-cath insertion with flouroscopy; Surgeon: Giovanna Tolentino MD; Location: [facility] OR; Service: General; Laterality: N/A; Family History Problem Relation Age of Onset Drug abuse Mother Early Mother Depression Mother COPD Mother Other (Other) Father unknown No Known Problems Brother No Known Problems Brother Other (Other) Maternal Grandmother unknown Cancer Maternal Grandfather unknown type Breast cancer Paternal Grandmother Liver disease Paternal Grandfather Alcohol abuse Paternal Grandfather No Known Problems Half-Brother No Known Problems Half-Sister No Known Problems Half-Sister No Known Problems Son No Known Problems Daughter Social History Socioeconomic History Marital status: Tobacco Use Smoking status: Former Current packs/day: 0.00 Average packs/day: 0.5 packs/day for 29.6 years (14.8 ttl pk-yrs) Types: Cigarettes Start date: 01/17/1995 Quit date: 08/19/2024 Years since quittin.5 Passive exposure: Past Smokeless tobacco: Never Vaping Use Vaping status: Former Substance and Sexual Activity Alcohol use: Not Currently Comment: Last drink around March 2023 Drug use: Not Currently Types: Crack cocaine, Cocaine(coke), Fentanyl, Heroin, Hydrocodone, Methamphetamines, Oxycodone, Other, Marijuana Comment: Last used was in 2017 for heroine, and 2019 for meth Sexual activity: Yes Partners: Male control/protection: Tubal ligation, Hysterectomy No LMP recorded (lmp unknown). Patient has had a hysterectomy. Current Outpatient Medications on File Prior to Visit Medication Sig Dispense Refill albuterol sulfate HFA 108 (90 Base) MCG/ACT inhaler Inhale 2 puffs Every 4 (Four) Hours As Needed for Wheezing. 18 g 2 dexAMETHasone (DECADRON) 4 MG tablet Take 1 tablet by mouth As Needed (before and after treatments). Fezolinetant (VEOZAH) 45 MG tablet Take 1 tablet by mouth Daily. 30 tablet 0 ibuprofen (ADVIL,MOTRIN) 800 MG tablet Take 1 tablet by mouth Every 6 (Six) Hours As Needed for Mild Pain. 90 tablet 1 lidocaine-prilocaine (EMLA) 2.5-2.5 % cream Apply 1 Application topically to the appropriate area as directed As Needed. loperamide (IMODIUM A-D) 2 MG tablet Take 1 tablet by mouth As Needed for Diarrhea (After treatments). loratadine (CLARITIN) 10 MG tablet Take 1 tablet by mouth Daily. naloxone (NARCAN) 4 MG/0.1ML nasal spray Administer 1 spray into the nostril(s) as directed by provider As Needed. ondansetron (Zofran) 4 MG tablet Take 1 tablet by mouth Every 8 (Eight) Hours As Needed for Nausea or Vomiting. 15 tablet 0 oxybutynin (DITROPAN) 5 MG tablet promethazine (PHENERGAN) 12.5 MG tablet Take 1 tablet by mouth Every 6 (Six) Hours As Needed. for nausea No current facility-administered medications on file prior to visit. Allergies Allergen Reactions Hydrocodone Itching Hydrocodone-Acetaminophen Itching Tramadol Itching Ketorolac Itching Visit Vitals BP 112/64 Pulse 86 Temp 99.3 ??F (37.4 ??C) (Infrared) Ht 167.6 cm (66 ) Wt 79.6 kg (175 lb 6.4 oz) LMP (LMP Unknown) Comment: July 2024, hormone blockers Neg HCG SpO2 98% BMI 28.31 kg/m?? Physical Exam Constitutional: General: She is not in acute distress. Appearance: She is well-developed. She is not diaphoretic. HENT: Head: Atraumatic. Cardiovascular: Rate and Rhythm: Normal rate and regular rhythm. Heart sounds: Normal heart sounds. No murmur heard. No friction rub. No gallop. Pulmonary: Effort: Pulmonary effort is normal. No respiratory distress. Breath sounds: Normal breath sounds. No stridor. No wheezing, rhonchi or rales. Musculoskeletal: Cervical back: Normal range of motion and neck supple. Skin: General: Skin is warm and dry. Neurological: Mental Status: She is alert and oriented to person, place, and time. Psychiatric: Behavior: Behavior normal. Results for orders placed or performed during the hospital encounter of 12/20/24 Respiratory Panel PCR w/COVID-19(SARS-CoV-2) STEFANI/JESSICA/ROGELIO/PAD/COR/KIMMY In-House, FIRER RETORT Swab in UTM/VTM, 2 HR TAT - Swab, Nasopharynx Collection Time: 12/20/24 2:27 AM Specimen: Nasopharynx; Swab Result Value Ref Range ADENOVIRUS, PCR Not Detected Not Detected Coronavirus 229E Not Detected Not Detected Coronavirus HKU1 Not Detected Not Detected Coronavirus NL63 Not Detected Not Detected Coronavirus OC43 Not Detected Not Detected COVID19 Not Detected Not Detected - Ref. Range Human Metapneumovirus Not Detected Not Detected Human Rhinovirus/Enterovirus Not Detected Not Detected Influenza A PCR Not Detected Not Detected Influenza B PCR Not Detected Not Detected Parainfluenza Virus 1 Not Detected Not Detected Parainfluenza Virus 2 Not Detected Not Detected Parainfluenza Virus 3 Not Detected Not Detected Parainfluenza Virus 4 Not Detected Not Detected RSV, PCR Not Detected Not Detected Bordetella pertussis pcr Not Detected Not Detected Bordetella parapertussis PCR Not Detected Not Detected Chlamydophila pneumoniae PCR Not Detected Not Detected Mycoplasma pneumo by PCR Not Detected Not Detected Rapid Strep A Screen - Swab, Throat Collection Time: 12/20/24 2:27 AM Specimen: Throat; Swab Result Value Ref Range Strep A Ag Negative Negative Beta Strep Culture, Throat - Swab, Throat Collection Time: 12/20/24 2:27 AM Specimen: Throat; Swab Result Value Ref Range Throat Culture, Beta Strep No Beta Hemolytic Streptococcus Isolated at 2 days Problems Addressed this Visit Gastrointestinal Abdominal Pelvic pain Relevant Medications oxyCODONE-acetaminophen (Percocet) 10-325 MG per tablet Hematology and Neoplasia Malignant neoplasm of female breast - Primary For skin complete her last round of chemotherapy with her oncologist that she is currently following with. She would like a referral to establish care with an oncologist here in [place] with [facility] once chemotherapy has been completed for further follow-up. Referral was placed today. Relevant Medications oxyCODONE-acetaminophen (Percocet) 10-325 MG per tablet Other Relevant Orders Ambulatory Referral to Oncology Mental Health Depression with anxiety Patient's depression is a recurrent episode that is moderate without psychosis. Depression is in partial remission and improving with treatment. Plan: Continue current medication therapy Followup in 3 months. Musculoskeletal and Injuries Hip pain Relevant Medications oxyCODONE-acetaminophen (Percocet) 10-325 MG per tablet Other Relevant Orders Ambulatory Referral to Pain Management (Completed) Chronic thoracic back pain Patient has chronic pain in multiple joints. She will continue ibuprofen and Percocet. Patient was given referral to pain management to establish with a provider here [facility] to take over writing herPercocet. Patient will be given a refill in order to give her time to get in to see a new provider.Jerome was reviewed and appropriate. Relevant Medications oxyCODONE-acetaminophen (Percocet) 10-325 MG per tablet Other Relevant Orders Ambulatory Referral to Pain Management (Completed) Neck pain Relevant Medications oxyCODONE-acetaminophen (Percocet) 10-325 MG per tablet Other Relevant Orders Ambulatory Referral to Pain Management (Completed) Pulmonary and Pneumonias Emphysema lung COPD is poorly. Plan: Patient will begin Symbicort 2 puffs twice daily and will continue to use albuterol Hailer as needed. Discussed medication dosage, use, side effects, and goals of treatment in detail. Warning signs of respiratory distress were reviewed with the patient. . Patient Treatment Goals: symptom prevention, minimizing limitation in activity, prevention of exacerbations and use of ER/inpatient care, maintenance of optimal pulmonary function, and minimization of adverse effects of treatment Followup in 3 months. Relevant Medications dexAMETHasone (DECADRON) 4 MG tablet loratadine (CLARITIN) 10 MG tablet promethazine (PHENERGAN) 12.5 MG tablet Sleep Insomnia Moran that the trazodone 100 mg was making her too sleepy the following day for her to be able to take it at night. Patient was given prescription for 50 mg trazodone and advised to start with 25 mg nightly if she tolerates this well and sleeps well with this dose to stay at this dose but if she tolerates it well but is not sleeping well to increase to 50 mg nightly. Patient follow-up in 3 months. Diagnoses Codes Comments Malignant neoplasm of left breast in female, estrogen receptor positive, unspecified site of breast- Primary ICD-10-CM: C50.912, Z17.0 ICD-9-CM: 174.9, V86.0 Bilateral hip pain ICD-10-CM: M25.551, M25.552 ICD-9-CM: 719.45 Chronic bilateral thoracic back pain ICD-10-CM: M54.6, G89.29 ICD-9-CM: 724.1, 338.29 Neck pain ICD-10-CM: M54.2 ICD-9-CM: 723.1 Pelvic pain ICD-10-CM: R10.2 ICD-9-CM: [id number] Depression with anxiety ICD-10-CM: F41.8 ICD-9-CM: 300.4 Pulmonary emphysema, unspecified emphysema type ICD-10-CM: J43.9 ICD-9-CM: 492.8 Insomnia, unspecified type ICD-10-CM: G47.00 ICD-9-CM: 780.52 Return in about 3 months (around 06/02/2025) for Follow-up chronic pain, emphysema, insomnia. Juan Luis Garza MD 03/04/2025 documented in this encounter Plan of Treatment Upcoming Encounters Date Type Department Care Team (Late st Contact Info) Description 06/06/2025 10:30 AM EDT Office Visit [facility] [address] [place] [phone] Juan Luis Garza MD [address] [place] [id number] Scheduled Referrals Name Type Priority Associated Diagnoses Orde r Schedule Ambulatory Referral to Oncology Outpatient Referral Routine Malignant neoplasm of left breast in female, estrogen receptor positive, unspecified site of breast Ordered: 03/02/2025 documented as of this encounter Visit Diagnoses Diagnosis Malignant neoplasm of left breast in female, estrogen receptor positive, unspecified site of breast- Primary Bilateral hip pain Pain in joint, pelvic region and thigh Chronic bilateral thoracic back pain Neck pain Cervicalgia Pelvic pain Depression with anxiety Dysthymic disorder Pulmonary emphysema, unspecified emphysema type Insomnia, unspecified type documented in this encounter Care Teams Digital Coordinator Relationship Specialty Start Date End Date Juan Luis Garza MD [address] [place] [id number] PCP - General Family Medicine 03/02/25 documented as of this encounter
--- OUTSIDE RECORDS SUMMARY | 2025-03-04 09:58 | XMS_ITS | Encounter Summary ---
[facility] Address [address] [place] [address] Care Team Providers Care Telecommunications Professional Name Role Phone Juan Luis Garza MD Primary Care Provider Encounter Details Date Type Department Care Team (Late st Contact Info) Description 03/04/2025 8:58 AM CDT Hospital Encounter [facility]C [address] [place] [phone] Social History Tobacco Use Types Packs/Day [...] or training? Not on file Preferred Language Iranian 09/27/2024 PHQ-2 Answer Date Recorded Patient Health Questionnaire-2 Score 0 10/18/2024 Comments No Sex and Gender Information Value Date Recorded Sex Assigned at Female 02/26/2025 10:23 PM EDT Legal Sex Female 10:15 PM EDT Gender Identity Not on file Sexual Orientation Straight 02/26/2025 10 :23 PM EDT documented as of this encounter Plan of Treatment Upcoming Encounters Date Type Department Care Team (Late st Contact Info) Description 06/06/2025 10:30 AM EDT Office Visit [facility] FAMILY MEDICINE [address] [phone] Juan Luis Garza MD [address] [address] documented as of this encounter Visit Diagnoses Not on filedocumented in this encounter Care Teams Telecommunications Professional Relationship Specialty Start Date End Date Juan Luis Garza MD [address] [phone] PCP - General Family Medicine 03/02/25 documented as of this encounter
--- OUTSIDE RECORDS SUMMARY | 2025-03-16 08:12 | XMS_ITS | Encounter Summary ---
Author Organization [facility] [address] Care Team Providers Care Gang Rider Name Role Phone Rodriguez Lindo Primary Care Provider [phone] Vane Hollingsworth MD Unavailable [phone] Giovanna Joseph RN Unavailable Unavailable Encounter Details Date Type Department Care Team (Latest Contact Info) Description 03/16/2025 8:12 AM EDT Hospital Encounter [place] [address] Malignant neoplasm of overlapping sites of left breast in female, estrogen receptor positive (HCC) (Primary Dx) Discharge Disposition: Home or Self Care Social History Tobacco Use Types Packs/Day Years Used Date Smoking Tobacco: Some Days Cigarettes 0.5 22.4 Started: 11/03/2002 Smokeless Tobacco: [...] Sleep. at bedtime 30 Tablet 2 02/01/2025 Magic Mouthwash (Lido/Diph/Nystat) oral compoundIndications: Malignant neoplasm of overlapping sites of left breast in female, estrogen receptor positive (HCC) Take 10-20 mL by mouth every 3 hours as needed. 450 mL 03/21/2025 documented as of this encounter Discharge Disposition Disposition Code Departure Means Destination Home or Self Care documented in this encounter Plan of Treatment Upcoming Encounters Date Type Department Care Team (Late st Contact Info) Description 04/15/2025 8:45 AM EDT Appointment [place] [address] 04/15/2025 9:15 AM EDT [facility]ment [facility] [place] [address] Vane Hollingsworth MD [address] [place] [phone] documented as of this encounter Procedures Procedure Name Priority Date/Time Associated Diagnosis Comments CBC WITH DIFF STAT 03/16/2025 8:20 AM EDT Malignant neoplasm of overlapping sites of left breast in female, estrogen receptor positive (HCC) COMPREHENSIVE METABOLIC PANEL STAT 03/16/2025 8:20 AM EDT Malignant neoplasm of overlapping sites of left breast in female, estrogen receptor positive (HCC) documented in this encounter Results * (ABNORMAL) COMPREHENSIVE METABOLIC PANEL (03/16/2025 8:20 AM EDT) Sodium 144 136 - 145 mmol/L 03/16/2025 8:44 AM EDT [facility] Potassium 3.6 3.5 - 5.0 mmol/L 03/16/2025 8:44 AM EDT [facility] Chloride 109(H) 98 - 107 mmol/L 03/16/2025 8:44 AM EDT [facility] Total CO2 23 22 - 29 mmol/L 03/16/2025 8:44 AM EDT [facility] Anion Gap 12 7 - 16 mmol/L 03/16/2025 8:44 AM EDT [facility] Calcium 9.5 8.6 - 10.4 mg/dL 03/16/2025 8:44 AM EDT [facility] Glucose Lvl 83 70 - 99 mg/dL 03/16/2025 8:44 AM EDT [facility] BUN 20 6 - 20 mg/dL 03/16/2025 8:44 AM EDT [facility] Creatinine 0.73 0.51 - 1.30 mg/dL 03/16/2025 8:44 AM EDT [facility] Albumin 3.9 3.5 - 5.2 gm/dL 03/16/2025 8:44 AM EDT [facility] Total Protein 6.3(L) 6.4 - 8.3 gm/dL 03/16/2025 8:44 AM EDT [facility] Bili Total 0.2 0.2 - 1.3 mg/dL 03/16/2025 8:44 AM EDT [facility] ALT 12 <=41 U/L 03/16/2025 8:44 AM EDT [facility] AST 16 <=40 U/L 03/16/2025 8:44 AM EDT [facility] Alk Phos 81 36 - 123 U/L 03/16/2025 8:44 AM EDT [facility] eGFR (CKD-EPIcr 2020) 105 >=60 mL/min/1.7 3 m2 03/16/2025 8:44 AM EDT [facility] Comment:Estimated GFR was ca lculated using the CKD-EPIcr (2020) equation refit without race. The equation is recommended by the National Kidney Foundation - [place] [employer] of Nephrology Task Force. Blood VENOUS STRUCTURE / Unknown Medicare Port / Unknown 03/16/2025 8:20 AM EDT 03/16/2025 8:20 AM EDT us Vane Hollingsworth MD CHEMISTRY ORDERABLES Final Result [facility] [address] [place] [id number] * (ABNORMAL) CBC WITH DIFF (03/16/2025 8:20 AM EDT) WBC 10.6(H) 3.7 - 10.3 x10(3)/mc L 03/16/2025 8:27 AM EDT [facility] RBC 2.96(L) 3.90 - 5.20 x10(6)/mc L 03/16/2025 8:27 AM EDT [facility] Hgb 9.3(L) 11.2 - 15.7 g/dL 03/16/2025 8:27 AM EDT [facility] Hct 28.6(L) 34.0 - 45.0 % 03/16/2025 8:27 AM EDT [facility] MCV 96.6 80.0 - 100.0 fL 03/16/2025 8:27 AM EDT [facility] MCH 31.4 26.0 - 34.0 pg 03/16/2025 8:27 AM EDT [facility] MCHC 32.5 30.7 - 35.5 g/dL 03/16/2025 8:27 AM EDT [facility] RDW 16.8(H) <=14.9 % 03/16/2025 8:27 AM EDT [facility] Platelet 300 155 - 369 x10(3)/mc L 03/16/2025 8:27 AM EDT [facility] MPV 9.2 8.8 - 12.5 fL 03/16/2025 8:27 AM EDT [facility] Neut # Prelim 7.4(H) 1.6 - 6.1 x10(3)/mc L 03/16/2025 8:27 AM EDT [facility] Comment:Preliminary automate d absolute neutrophil count. Value may change if manual differential is indicated. Neut Percent 69.5 % 03/16/2025 8:27 AM EDT [facility] Comment:Neutrophils equals s egs plus bands Imm Gran% 0.2 % 03/16/2025 8:27 AM EDT [facility] Comment:Automated count of m etamyelocytes, myelocytes and promyelocytes. Lymph Percent 14.1 % 03/16/2025 8:27 AM EDT [facility] Orange Percent 15.6 % 03/16/2025 8:27 AM EDT [facility] Eos Percent 0.2 % 03/16/2025 8:27 AM EDT [facility] Baso Percent 0.4 % 03/16/2025 8:27 AM EDT [facility] Neut # 7.4(H) 1.6 - 6.1 x10(3)/mc L 03/16/2025 8:27 AM EDT [facility] Comment:Neutrophils equals s egs plus bands IMMGRAN# 0.0 0.0 - 0.1 x10(3)/mc L 03/16/2025 8:27 AM EDT [facility] Comment:Automated count of m etamyelocytes, myelocytes and promyelocytes. An absolute IG <0.1 is reported as 0.0. Lymph # 1.5 1.2 - 3.9 x10(3)/mc L 03/16/2025 8:27 AM EDT [facility] Orange # 1.7(H) 0.3 - 0.9 x10(3)/mc L 03/16/2025 8:27 AM EDT [facility] Eos# 0.0 0.0 - 0.5 x10(3)/mc L 03/16/2025 8:27 AM EDT [facility] Baso # 0.0 0.0 - 0.1 x10(3)/mc L 03/16/2025 8:27 AM EDT [facility] Blood VENOUS STRUCTURE / Unknown Medicare Port / Unknown 03/16/2025 8:20 AM EDT 03/16/2025 8:20 AM EDT us Vane Hollingsworth MD HEMATOLOGY ORDERABLE S Final Result [facility] [address] [place] [address] documented in this encounter Visit Diagnoses Diagnosis Malignant neoplasm of overlapping sites of left breast in female, estrogen receptor positive (HCC)- Primary documented in this encounter Administered Medications Inactive Administered Medications - up to 1 most recent administrations Medication Order MAR Action Action Date Dose Rate Site sodium chloride 0.9 % sterile syringe 10 mL 10 mL, Intravenous, ONCE, 1 dose, On Fri03/16/25 at 0815, For initial access of Venous Access Device., Dx: 1. Malignant neoplasm of overlapping sites of left breast in female, estrogen receptor positive (HCC)Indications:Malignant neoplasm of overlapping sites of left breast in female, estrogen receptor positive (HCC) Given 03/16/2025 8:21 AM EDT 10 mL documented in this encounter Orders Medications Ordered That Jose Angel ht Not Have Been Administered Count Last Ordered Date First Ordered Date sodium chloride 0.9 % steril e syringe 10 mL 1 03/16/2025 documented in this encounter Care Teams Gang Rider Relationship Specialty Start Date End Date [facility] [address] [place] [phone] PCP - General Clinic/Center - [facility] ([facility]) 12/03/16 Vane Hollingsworth MD [address] [place] [address] Internal Medicine-Hematology and Oncology 02/21/25 Giovanna Joseph, RN Registered Nurse Infusion Therapy 03/16/25 03/16/25 documented as of this encounter
--- OUTSIDE RECORDS SUMMARY | 2025-03-16 08:13 | XMS_ITS | Encounter Summary ---
Author Organization [place] [address] Care Team Providers Care Electrical And Instrument Engineer Name Role Phone Rodriguez Lindo Primary Care Provider +1- [phone] Vane Hollingsworth MD Unavailable +1- [phone] Giovanna Joseph RN Unavailable Unavailable Reason for Visit * Oncology Medication Prior Authorization (Routine) - Authorized Specialty Diagnoses / Procedures Referred By Contac t Referred To Contact Diagnoses Malignant neoplasm of overlapping sites of left breast in female, estrogen receptor positive (HCC) Procedures ONCOLOGY MEDICATION AUTHORIZATION Vane Hollingsworth MD [address] [place] [address] Phone: tel: fax: Vane Hollingsworth MD [address] [place] [address] Phone: tel: fax: Referral ID Status Reason Start Date Expiration Date V isits Requested Visits Authorized [id number] Authorized 01/21/2025 01/21/2026 1 6 Encounter Details Date Type Department Care Team (Latest Contact Info) Description 03/16/2025 8:13 AM EDT - 03/16/2025 8:21 AM EDT Hospital Encounter [facility] [place] [address] Malignant neoplasm of overlapping sites [...] encounter Miscellaneous Notes * Patient Instructions - Giovanna Joseph RN - 03/16/2025 9:00 AM EDT [facility] Center Discharge Instructions Thank you [...] chloride 0.9 % 105.5 mL chemo infusion sodium chloride 0.9% syringe [...] infection DON'T WAIT, PLEASE CALL US FIRST [phone]. [FOR URGENT ISSUES PLEASE DO NOT LEAVE A MESSAGE, FOLLOW PROMPTS TO THE DOCTOR LINE OUT WORKER] For Gynecology / Oncology call : [phone] Our hours of operation are Friday - Friday 8:00 AM - 4:30 PM. [facility] [address] [place] [address] 343 [phone] [address] Results for orders placed or performed during the hospital encounter of 03/16/25 CBC WITH DIFF Result Value Ref Range WBC 10.6 (H) 3.7 - 10.3 x10(3)/mcL RBC 2.96 (L) 3.90 - 5.20 x10(6)/mcL Hgb 9.3 (L) 11.2 - 15.7 g/dL Hct 28.6 (L) 34.0 - 45.0 % MCV 96.6 80.0 - 100.0 fL MCH 31.4 26.0 - 34.0 pg MCHC 32.5 30.7 - 35.5 g/dL RDW 16.8 (H) <=14.9 % Platelet 300 155 - 369 x10(3)/mcL MPV 9.2 8.8 - 12.5 fL Neut # Prelim 7.4 (H) 1.6 - 6.1 x10(3)/mcL Neut Percent 69.5 % Imm Gran% 0.2 % Lymph Percent 14.1 % [place] Percent 15.6 % Eos Percent 0.2 % Baso Percent 0.4 % Neut # 7.4 (H) 1.6 - 6.1 x10(3)/mcL IMMGRAN# 0.0 0.0 - 0.1 x10(3)/mcL Lymph # 1.5 1.2 - 3.9 x10(3)/mcL [place] # 1.7 (H) 0.3 - 0.9 x10(3)/mcL Eos# 0.0 0.0 - 0.5 x10(3)/mcL Baso # 0.0 0.0 - 0.1 x10(3)/mcL COMPREHENSIVE METABOLIC PANEL Result Value Ref Range Sodium 144 136 - 145 mmol/L Potassium 3.6 3.5 - 5.0 mmol/L Chloride 109 (H) 98 - 107 mmol/L Total CO2 23 22 - 29 mmol/L Anion Gap 12 7 - 16 mmol/L Calcium 9.5 8.6 - 10.4 mg/dL Glucose Lvl 83 70 - 99 mg/dL BUN 20 6 - 20 mg/dL Creatinine 0.73 0.51 - 1.30 mg/dL Albumin 3.9 3.5 - 5.2 gm/dL Total Protein 6.3 (L) 6.4 - 8.3 gm/dL Bili Total 0.2 0.2 - 1.3 mg/dL ALT 12 <=41 U/L AST 16 <=40 U/L Alk Phos 81 36 - 123 U/L eGFR (CKD-EPIcr 2020) 105 >=60 mL/min/1.73 m2 documented in this encounter Plan of Treatment Upcoming Encounters Date Type Department Care Team (Late st Contact Info) Description 04/15/2025 8:45 AM EDT Appointment [facility] [place], [place] [id number] 04/15/2025 9:15 AM EDT [facility]ointment [facility] [place], [place] [id number] Vane Hollingsworth MD [address] [place] [id number] documented as of this encounter Visit Diagnoses Diagnosis Malignant neoplasm of overlapping sites of left breast in female, estrogen receptor positive (HCC)- Primary documented in this encounter Administered Medications Inactive Administered Medications - up to 1 most recent administrations Medication Order MAR Action Action Date Dose Rate Site 0.9 % NaCl infusion Intravenous, at 30 mL/hr, CONTINUOUS, Starting on Fri03/16/25 at 0930, Until Fri03/17/25 at 0410, For line out worker during chemotherapy infusion., Dx: 1. Malignant neoplasm of overlapping sites of left breast in female, estrogen receptor positive (HCC)Indications:Malignan t neoplasm of overlapping sites of left breast in female, estrogen receptor positive (HCC) Rate/Dose Verify 03/16/2025 11:53 AM EDT 30 mL/hr cycloPHOSphamide (CYTOXAN) 1,100 mg in sodium chloride 0.9 % 116 mL chemo infusion 1,100 mg (rounded from 1,158 mg = 600 mg/m2 1.93 m2 Treatment Plan BSA from Recorded weight), Intravenous, at 232 mL/hr, ONCE, 1 dose, On Fri03/16/25 at 1100, Follow Chemotherapy Precautions (Caution - Irritant), Dx: 1. Malignant neoplasm of overlapping sites of left breast in female, estrogen receptor positive (HCC)Indications:Malignan t neoplasm of overlapping sites of left breast in female, estrogen receptor positive (HCC) IV Started 03/16/2025 11:57 AM EDT 1,100 mg 232 mL/hr dexAMETHasone (DECADRON) tablet 12 mg 12 mg, Oral, ONCE, 1 dose, On Fri03/16/25 at 0930, Dx: 1. Malignant neoplasm of overlapping sites of left breast in female, estrogen receptor positive (HCC)Indications:Malignan t neoplasm of overlapping sites of left breast in female, estrogen receptor positive (HCC) Given 03/16/2025 9:32 AM EDT 12 mg DOCEtaxeL (TAXOTERE) 140 mg in sodium chloride 0.9 % 250 mL chemo infusion 140 mg (rounded from 144.75 mg = 75 mg/m2 1.93 m2 Treatment Plan BSA from Recorded weight), Intravenous, at 282 mL/hr, ONCE, 1 dose, On Fri03/16/25 at 1000, Follow Chemotherapy Precautions (Caution - Irritant) Vitals before and after infusion., Dx: 1. Malignant neoplasm of overlapping sites of left breast in female, estrogen receptor positive (HCC)Indications:Malignan t neoplasm of overlapping sites of left breast in female, estrogen receptor positive (HCC) IV Started 03/16/2025 10:48 AM EDT 140 mg 282 mL/hr heparin flush 100 unit/mL injection 500 Units 500 Units, Intravenous, PRN, Starting on Fri03/16/25 at 0919, Until Fri03/17/25 at 0410, Line Care, For Venous Access Device care and maintenance., Dx: 1. Malignant neoplasm of overlapping sites of left breast in female, estrogen receptor positive (HCC)Indications:Malignan t neoplasm of overlapping sites of left breast in female, estrogen receptor positive (HCC) Given 03/16/2025 12:34 PM EDT 500 Units palonosetron (ALOXI) injection 0.25 mg 0.25 mg, Intravenous, ONCE, 1 dose, On Fri03/16/25 at 0930, Dx: 1. Malignant neoplasm of overlapping sites of left breast in female, estrogen receptor positive (HCC)Indications:Malignan t neoplasm of overlapping sites of left breast in female, estrogen receptor positive (HCC) Given 03/16/2025 9:32 AM EDT 0.25 mg sodium chloride 0.9% syringe 10 mL 10 mL, Intravenous, PRN, Starting on Fri03/16/25 at 0919, Until Elena 03/17/25 at 0410, Line Care, For Venous Access Device care and maintenance., Dx: 1. Malignant neoplasm of overlapping sites of left breast in female, estrogen receptor positive (HCC)Indications:Malignan t neoplasm of overlapping sites of left breast in female, estrogen receptor positive (HCC) Given 03/16/2025 12:34 PM EDT 10 mL documented in this encounter Care Teams Electrical And Instrument Engineer Relationship Specialty Start Date End Date [facility] [address] [place] [phone] PCP - General Clinic/Center - [facility] ([facility]) 12/03/16 Vane Hollingsworth MD [address] [place] [address] Internal Medicine-Hematology and Oncology 02/21/25 Giovanna Joseph, RN Registered Nurse Infusion Therapy 03/16/25 03/16/25 documented as of this encounter
--- OUTSIDE RECORDS SUMMARY | 2025-03-16 08:22 | XMS_ITS | Encounter Summary ---
Author Organization [place] [address] Care Team Providers Care Power Marketer Name Role Phone Rodriguez Lindo Primary Care Provider +1- [phone] Vane Hollingsworth MD Unavailable +1- [phone] Giovanna Joseph RN Unavailable Unavailable Reason for Visit * Reason Comments Follow-up Breast Cancer Malignant neoplasm o f overlapping sites of left breast in female, estrogen receptor positive Chemotherapy Encounter Details Date Type Department Care Team (Latest Contact Info) Description 03/16/2025 8:22 AM EDT - 03/16/2025 11:59 PM EDT Hospital Encounter [facility] Medical Oncology [place] [id number] Ana Rosa Del Angel, SURFACE GRINDING MACHINE HAND [address] [place] [address] Malignant neoplasm of overlapping sites of left breast in female, estrogen receptor positive (HCC) (Primary Dx); Encounter for antineoplastic chemotherapy Discharge Disposition: Home or Self Care Social [...] 8:32 AM EDT documented in this encounter Medications [...] Progress Notes * Ana Rosa Del Angel, SURFACE GRINDING MACHINE HAND - 03/16/2025 8:30 AM EDT Images from the original note were not included. Patient: Anne Kearney CSN: [id number] Date of : 1985 Age: 40 y.o. Date of Service: 03/16/2025 HEMATOLOGY/ONCOLOGY FU PATIENT OFFICE NOTE CURRENT TREATMENT: 12/15/2024 - TC X 4 (first cycle given in [place]) Outside oncology history: Diagnosis Invasive lobular carcinoma, 2 o'clock left breast, Jul 2024 Grade 2 ER 76%, SD 24%, HER-2 0/negative, Ki67 13% Stage IIB; pT2, pN1a Oncotype DX recurrence score: 17 [facility] BRCA 1/2 CancerNext genetic test: Positive pathogenic mutation detected: BRCA2 History Hepatitis C-treated Treatment Summary 07/29/24 Bilateral mastectomies with positive (09/13) left axillary SLNB by Dr Giovanna Tolentino/[facility] General Surgery 08/16/24 Initiated endocrine hormone therapy with Tamoxifen 20mg daily by Dr Oliverio Prescott/[facility] Medical Oncology 10/01/24 Prophylactic total hysterectomy with bilateral salpino-oophorectomy by Dr Ministerio Gamino/[facility] WEARING APPAREL FOLDER 10/11/24 - 12/01/24 Completed adjuvant radiation therapy with 5040cGy over 28 fractions to left breastby Dr Angelito Pierson/[facility] Radiation Oncology 10/18/24 Discontinue Tamoxifen. Initiate Letrozole 2.5mg daily by Dr Oliverio Prescott/[facility] Medical Oncology. 12/15/24 Taxotere, Cyclophosphamide + GCSF every for 3 weeks x4 cycles Cancer History 06/14/24 Bilateral screening mammogram ([facility]): No suspicious mammographic findings in the RIGHT breast. LEFT breast 4 mm focal asymmetry in the middle to posterior third, outer central breast, 3 o'clock position, 5 cm from the nipple on cc view. 06/14/24 Transvaginal US ([facility]): Physiologic appearance of the uterus and [...] nipple, core needle biopsies: Invasive lobular carcinoma. [place] histologic score Glandular differentiation: Score 3. Nuclear pleomorphism: Score 2. Mitotic rate: Score 1. Overall grade: Grade 2. Maximum tumor diameter is at least 1.4 cm. ER 76%, SD 24%, HER-2 0/negative, Ki67 13% 06/29/24 MRI [...] (1/6) left axillary SLNB by Dr Giovanna Tolentino/[facility] General Surgery 07/29/24 Left breast, total [...] with Tamoxifen 20mg daily by Dr Oliverio Prescott/[facility] Medical Oncology 08/16/24 [facility] labs: CEA 3.75, CA 27-29 14; CBC-WBC 14.6; ANC 8.7; ALC 4.2; Hgb 12.1; MCV 88.9; platelets 361,000; CMP WNL; ferritin 19, iron 34, fe sat 7% 08/18/24 CT chest ([facility]): No evidence of metastatic disease in the chest. Postoperative change of bilateral mastectomy. 08/18/24 CT abd/pelvis ([facility]): No evidence of metastatic disease in the abdomen or pelvis. 08/18/24 Bone scan ([facility]): No evidence of osteoblastic metastatic disease by bone scan. 08/30/24 Oncotype DX recurrence score: 17 09/16/[address] Angelito Pierson/[facility] Radiation Oncology who recommended adjuvant radiation therapy with 5040 cGy over 28 fractions to left breast/left chest wall [facility]. 09/20/[address] Oliverio Prescott/[facility] Medical Oncology who recommended referral to WEARING APPAREL FOLDER for prophylactic hysterectomy due to positive BRCA2 gene, to proceed with [facility] consult, to proceed with radiation therapy after [facility] consult and adjuvant Taxotere 75mg/m2, Cyclophosphamide 600mg/m2 every 3 weeks x4 cycles, but to hold until [facility] consult completed. 09/23/[address] Lit Sheets/[facility] Breast Medical Oncology who recommended adjuvantTaxotere Cyclophosphamide x4 cycles followed by adjuvant Aromatase inhibitor + Ribociclib + Zometa. 09/27/24 Bone density ([facility]): Normal 10/01/24 Prophylactic total hysterectomy with bilateral salpino-oophorectomy by Dr Ministerio Gamino[facility] WEARING APPAREL FOLDER 10/01/24 Uterus, cervix, bilateral tubes and ovaries, hysterectomy and bilateral salpingo-oophorectomy: Chronic cervicitis. Proliferative endometrium. Endometrial polyp. Adenomyosis. Completely transected right and left fallopian tubes and unremarkable fimbrial epithelial surface. Mesonephric cyst associated both left and right fallopian tubes. Corpora albicantia of right ovary.Corpora albicantia and 1 corpus hemorrhagicum of left ovary. Uterine weight of 141.7 g. 10/03/24 CT abd/pelvis ([facility]): Moderate pneumoperitoneum with scattered extraperitoneal air [...] fractions to left breast by Dr Angelito Pierson/[facility] Radiation Oncology 10/18/24 Follow-up evaluation with Dr Oliverio Prescott/[facility] Medical Oncology who recommended to discontinue Tamoxifen, initiate Letrozole 2.5mg daily and to anticipate adjuvant Taxotere 75mg/m2, Cyclophosphamide 600mg/m2 every 3 weeks x4 cycles 10/18/24 Discontinue Tamoxifen. Initiate Letrozole 2.5mg daily by Dr Oliverio Prescott/[facility] Medical Oncology 11/03/24 CT chest ([facility]): No acute abnormality in the chest. 11/03/24 US venous doppler upper right extremity ([facility]): There is no evidence of deep venous thrombosis of the right upper extremity. There is partial nonocclusive superficial thrombus in the cephalic vein. 12/01/24 Completed adjuvant radiation therapy with 5040cGy over 28 fractions to left breast by Dr Angelito Pierson/[facility] Radiation Oncology 12/15/24 First dose of TC HISTORY OF PRESENT ILLNESS: CC: Chief Complaint Patient presents with Follow-up Breast Cancer Malignant neoplasm of overlapping sites of left breast in female, estrogen receptor positive Chemotherapy Patient is a 40 y.o. female who presents for breast cancer follow up and treatment. First dose of TC in [facility] and moved locally and here to continue her treatment Here for cycle #4 TC Got established with new PCP Dr. Garza in [place] and was given pain medication at visit 03/02, did not go visit on 03/[address] Neves in [place]. Plan to not continue following with [facility] [...] o'clock left breast, Grade 2, ER 76%, SD 24%, HER-2 0/negative, Ki67 13%, pT2, pN1a [...] after treatment Genetic assessment 06/29/24 Anni LEONARDO 09/09 CancerNext [...] visit on 03/[address] Neves in [place] -got scheduled with new PCP in [place] 03/03 who refilled her pain medication but [...] Del Angel APRN Hematology and Medical Oncology [facility] documented in this encounter Plan of Treatment Upcoming Encounters Date Type Department Care Team (Late st Contact Info) Description 04/15/2025 8:45 AM EDT Appointment [facility] [address] 04/15/2025 9:15 AM EDT Appointment [facility] [place] [address] Vane Hollingsworth MD [address] [place] [address] Scheduled Orders Name Type Priority Associated Diagnoses [...] chemotherapy documented in this encounter Care Teams Power Marketer Relationship Specialty Start Date End Date [facility] [address] [place] [phone] PCP - General Clinic/Center - [facility] ([facility]) 12/03/16 Vane Hollingsworth MD [address] [place] [address] Internal Medicine-Hematology and Oncology 02/21/25 Giovanna Joseph, RN Registered Nurse Infusion Therapy 03/16/25 03/16/25 documented as of this encounter
--- OUTSIDE RECORDS SUMMARY | 2025-03-16 16:56 | XMS_ITS | Encounter Summary ---
Demographics Address [address] [place] [address] Mobile Phone Email Address Preferred Language en Marital Status Presybeterian Affiliation Unknown Race White Ethnic Group Not or Lati no Author Organization Healthcare Address [address] [place] [address] Care Team Providers Care Securities Research Analyst Name Role Phone Pcp, No Primary Care Provider Unavailabl e Encounter Details Date Type Department Care Team (Late st Contact Info) Description 03/16/2025 4:56 PM EDT - 03/16/2025 5:25 PM EDT [facility] [address] [place] [address] Discharge Disposition: Left WIthout Being [...] on filedocumented in this encounter Care Teams Securities Research Analyst Relationship Specialty Start Date End Date Pcp, No [address] [place] [address] PCP - General Family Medicine 02/07/25 documented as of this encounter
--- OUTSIDE RECORDS SUMMARY | 2025-03-18 09:30 | XMS_ITS | Encounter Summary ---
Author Organization [place] [address] Care Team Providers Care Agricultural Education Professor Name Role Phone Rodriguez Lindo Primary Care Provider +1- [phone] Vane Hollingsworth MD Unavailable [phone]- [phone] Reason for Visit * Oncology Medication Prior Authorization (Routine) - Authorized Specialty Diagnoses / Procedures Referred By Contac t Referred To Contact Diagnoses Malignant neoplasm of overlapping sites of left breast in female, estrogen receptor positive (HCC) Procedures ONCOLOGY MEDICATION AUTHORIZATION Vane Hollingsworth MD [address] [place] [address] Phone: tel: fax: Vane Hollingsworth MD [address] [place] [address] Phone: tel: fax: Referral ID Status Reason Start Date Expiration Date V isits Requested Visits Authorized [id number] Authorized 01/21/2025 01/21/2026 1 6 Encounter Details Date Type Department Care Team (Latest Contact Info) Description 03/18/2025 9:30 AM EDT - 03/18/2025 11:59 PM EDT Hospital Encounter [facility] [address] Malignant neoplasm of overlapping sites [...] Landa RN - 03/18/2025 9:30 AM EDT [facility] Discharge Instructions Thank you for entrusting the [facility] with your care. We hope you [...] infection DON'T WAIT, PLEASE CALL US FIRST [phone]. [FOR URGENT ISSUES PLEASE DO NOT LEAVE A MESSAGE, FOLLOW PROMPTS TO THE DOCTOR WIRE WINDING MACHINE OPERATOR] For Gynecology / Oncology call : [phone] Our hours of operation are Friday - Friday 8:00 AM - 4:30 PM. [place] [address] [phone] [id number] No results found for any visits on 03/18/25. documented in this encounter Plan of Treatment Upcoming Encounters Date Type Department Care Team (Late st Contact Info) Description 04/15/2025 8:45 AM EDT Appointment [facility] [place], [place] [id number] 04/15/2025 9:15 AM EDT [facility]ointment [facility] [place], [place] [id number] Vane Hollingsworth MD [address] [place] [address] [phone] documented as of this encounter Visit Diagnoses [...] 03/18/2025 documented in this encounter Care Teams Agricultural Education Professor Relationship Specialty Start Date End Date Rodriguez Lindo [address] [place] [id number] PCP - General Clinic/Center - [facility] ([facility]) 12/03/16 Vane Hollingsworth MD [address] [place] [address] Internal Medicine-Hematology and Oncology 02/21/25 documented as of this encounter
--- OUTSIDE RECORDS SUMMARY | 2025-03-19 00:14 | XMS_ITS | Encounter Summary ---
Demographics Address [address] [place] [address] Mobile Phone Email Address Preferred Language en Marital Status Presybeterian Affiliation Unknown Race White Ethnic Group Not or Lati no Author Organization Healthcare Address [address] [place] [address] Care Team Providers Care Temple Meat Cutter Name Role Phone Pcp, No Primary Care Provider Unavailabl e Reason for Visit * Reason Comments Pain Management Encounter Details Date Type Department Care Team (Late st Contact Info) Description 03/19/2025 12:14 AM EDT - 03/19/2025 2:48 AM EDT Emergency [facility] Emergency Department [address] [place] [address] Fish Carranza MD [address] [place] [address] Cancer associated pain (Primary Dx); [...] at this time. History provided by: Patient tibco developer used: No Patient History Past Medical [...] LAB HEMATOLOGY METHOD 03/19/2025 1:09 AM EDT [facility] Blood Venous blood specimen / Unknown Venipuncture / Unknown 03/19/2025 12:52 AM EDT 03/19/2025 1:07 AM EDT us Fish Carranza MD LAB BLOOD ORDERABLES Final Resul t [facility] [address] [place] [address] * (ABNORMAL) CBC w/diff (03/19/2025 12:52 AM EDT) WBC Count 41.22(H) 3.70 - 10.30 10*3/uL LAB HEMATOLOGY METHOD 03/19/2025 1:12 AM EDT [facility] RBC Count 3.12(L) 3.90 - 5.20 10*6/uL LAB HEMATOLOGY METHOD 03/19/2025 1:12 AM EDT [facility] HGB 9.5(L) 11.2 - 15.7 g/dL LAB HEMATOLOGY METHOD 03/19/2025 1:12 AM EDT [facility] HCT 29.0(L) 34.0 - 45.0 % LAB HEMATOLOGY METHOD 03/19/2025 1:12 AM EDT [facility] Platelet Count 301 155 - 369 10*3/uL LAB HEMATOLOGY METHOD 03/19/2025 1:12 AM EDT [facility] MCV 93 79 - 98 fL LAB HEMATOLOGY METHOD 03/19/2025 1:12 AM EDT [facility] MCH 30.4 26.0 - 32.0 pg LAB HEMATOLOGY METHOD 03/19/2025 1:12 AM EDT [facility] MCHC 32.8 30.7 - 35.5 g/dL LAB HEMATOLOGY METHOD 03/19/2025 1:12 AM EDT [facility] RDW 16.6(H) 11.5 - 14.5 % LAB HEMATOLOGY METHOD 03/19/2025 1:12 AM EDT [facility] MPV 10.1 8.8 - 12.5 fL LAB HEMATOLOGY METHOD 03/19/2025 1:12 AM EDT [facility] nRBC 0.0 <=0.0 per 100 WBCs LAB HEMATOLOGY METHOD 03/19/2025 1:12 AM EDT [facility] Differential Type Automated LAB HEMATOLOGY METHOD 03/19/2025 1:12 AM EDT [facility] Neutrophils % 95 % LAB HEMATOLOGY METHOD 03/19/2025 1:12 AM EDT [facility] Lymphocytes % 2 % LAB HEMATOLOGY METHOD 03/19/2025 1:12 AM EDT [facility] Monocytes % 1 % LAB HEMATOLOGY METHOD 03/19/2025 1:12 AM EDT [facility] Eosinophils % 0 % LAB HEMATOLOGY METHOD 03/19/2025 1:12 AM EDT [facility] Basophils % 0 % LAB HEMATOLOGY METHOD 03/19/2025 1:12 AM EDT [facility] Immature Granulocytes % 2 % LAB HEMATOLOGY METHOD 03/19/2025 1:12 AM EDT [facility] Neutrophils Absolute 39.07(H) 1.60 - 6.10 10*3/uL LAB HEMATOLOGY METHOD 03/19/2025 1:12 AM EDT [facility] Lymphocytes Absolute 0.81(L) 1.20 - 3.90 10*3/uL LAB HEMATOLOGY METHOD 03/19/2025 1:12 AM EDT [facility] Monocytes Absolute 0.34 0.30 - 0.90 10*3/uL LAB HEMATOLOGY METHOD 03/19/2025 1:12 AM EDT [facility] Eosinophils Absolute 0.02 0.00 - 0.50 10*3/uL LAB HEMATOLOGY METHOD 03/19/2025 1:12 AM EDT [facility] Basophils Absolute 0.08 0.00 - 0.10 10*3/uL LAB HEMATOLOGY METHOD 03/19/2025 1:12 AM EDT [facility] Immature Granulocytes Absolute 0.90(H) 0.00 - 0.06 10*3/uL LAB HEMATOLOGY METHOD 03/19/2025 1:12 AM EDT [facility] Blood Venous blood specimen / Unknown Venipuncture / Unknown 03/19/2025 12:52 AM EDT 03/19/2025 1:08 AM EDT Narrative [facility] - 03/19/2025 1:12 AM EDT Therapeutic decision making should be based on absolute values, rather than percentages. us Fish Carranza MD LAB BLOOD ORDERABLES Final Resul t [facility] [address] [place] [address] * (ABNORMAL) BMP (03/19/2025 12:52 AM EDT) [facility] Glucose, Plasma 79 74 - 99 mg/dL 03/19/2025 1:31 AM EDT [facility] BUN, Plasma 22(H) 7 - 21 mg/dL 03/19/2025 1:31 AM EDT [facility] Creatinine, Plasma 0.92 0.60 - 1.10 mg/dL 03/19/2025 1:31 AM EDT [facility] BUN/Creatinine Ratio 24 03/19/2025 1:31 AM EDT [facility] Sodium, Plasma 143 136 - 145 mmol/L 03/19/2025 1:31 AM EDT [facility] Potassium, Plasma 3.2(L) 3.6 - 4.9 mmol/L 03/19/2025 1:31 AM EDT [facility] Chloride, Plasma 110(H) 97 - 107 mmol/L 03/19/2025 1:31 AM EDT [facility] CO2, Plasma 21(L) 22 - 29 mmol/L 03/19/2025 1:31 AM EDT [facility] Anion Gap 12 6 - 16 mmol/L 03/19/2025 1:31 AM EDT [facility] Total Calcium, Plasma 8.4(L) 8.9 - 10.2 mg/dL 03/19/2025 1:31 AM EDT [facility] eGFRcr 80.4 mL/min/1.7 3m*2 03/19/2025 1:31 AM EDT [facility] Comment:Reported eGFRcr in m L/min/1.73m2 is based the CKD-EPI 2020 equation that does not use a race coefficient. Blood Venous blood specimen / Unknown Venipuncture / Unknown 03/19/2025 12:52 AM EDT 03/19/2025 1:07 AM EDT us Fish Carranza MD LAB BLOOD ORDERABLES Final Resul t [facility] [address] [place] [address] documented in this encounter Visit Diagnoses Diagnosis [...] Murillo) documented in this encounter Care Teams Temple Meat Cutter Relationship Specialty Start Date End Date Pcp, [place] [address] PCP - General Family Medicine 02/07/25 documented as of this encounter
--- OUTSIDE RECORDS SUMMARY | 2025-03-21 01:02 | XMS_ITS | Encounter Summary ---
Author Organization [place] [address] Care Team Providers Care Associate Professor Of English Name Role Phone Rodriguez Lindo Primary Care Provider +1- [phone] Vane Hollingsworth MD Unavailable +1- [phone] Reason for Visit * Reason Comments Pain Pt reports Breast CA and currently receiving chemo treatments. Pt decided she could return to work. Worked today and is in pain all over, pt c/o of significant pain in joints. Encounter Details Date Type Department Care Team (Late st Contact Info) Description 03/21/2025 1:02 AM EDT - 03/21/2025 2:20 AM EDT Emergency [facility] [place] [address] Javier Finney MD [address] [place] [phone] Chest pain, unspecified type (Primary Dx); [...] 1:48 AM EDT Regina Olsen RN * [place] Suicide Severity Rating Scale (Q shift for [...] history of Bipolar affective (HCC), Heroin overdose (HCC), Heroin use, Insomnia, Knee pain, Paranoid schizophrenia, chronic condition ([facility]), and Polysubstance abuse ([facility]) (11/01/2017). presents to ED with c/o pain [...] ROSIE DEE Department: DEPID Room: Gender: Female Pelt Salter: : 1985 Requested By: MARTIN CASSIDY Order Number: [id number] Reading MD: Measurements Intervals Lindsay Rate: 87 P: 30 CT: 148 QRS: 52 QRSD: 96 T: 49 [...] ED Interpretation by Javier Finney MD (03/21 0506) EKG is ordered and interpreted by me. EKG reveals sinus rhythm. Rate of 90. Normal axis. No acute ST change. EKG is within normal limits . documented in this encounter Plan of Treatment Upcoming Encounters Date Type Department Care Team (Late st Contact Info) Description 04/15/2025 8:45 AM EDT Appointment [facility] [place] [address] 04/15/2025 9:15 AM EDT [facility]ointment [facility] [place] [address] Vane Hollingsworth MD [address] [place] [address] documented as of this encounter [...] * LACTIC ACID (03/21/2025 2:07 AM EDT) [facility] Lactic Acid 1.1 0.5 - 1.9 mmol/L 03/21/2025 2:26 AM EDT [facility] [employer] Blood VENOUS BLOOD / Unknown Venipuncture / Unknown 03/21/2025 2:07 AM EDT 03/21/2025 2:07 AM EDT us Martin Cassidy ANALOG CIRCUIT DESIGNER CHEMISTRY ORDERABLES Final Res ult [facility] 1 [facility] , [place] [address] * TROPONIN-T HIGH SENSITIVITY BASELINE W/ REFLEX (03/21/2025 2:06 AM EDT) yn-tGxullhcp-Q <6 <14 ng/L 03/21/2025 2:29 AM EDT [facility] Blood VENOUS BLOOD / Unknown Venipuncture / Unknown 03/21/2025 2:06 AM EDT 03/21/2025 2:06 AM EDT Narrative [facility] - 03/21/2025 2:29 AM EDT Ingestion of manda doses of biotin (>5 mg/day) taken within 8 hours of drawing blood sample can interfere with this immunoassay test. us Martin Cassidy NP CHEMISTRY ORDERABLES Final Res ult [facility] 1 [facility] , [address] [place] [phone] * (ABNORMAL) COMPREHENSIVE METABOLIC PANEL (03/21/2025 2:06 AM EDT) Sodium 140 136 - 145 mmol/L 03/21/2025 2:29 AM EDT [facility] Potassium 3.6 3.5 - 5.0 mmol/L 03/21/2025 2:29 AM EDT [facility] Chloride 107 98 - 107 mmol/L 03/21/2025 2:29 AM EDT [facility] Total CO2 22 22 - 29 mmol/L [...] 03/21/2025 2:29 AM EDT [facility] Bili Total 0.3 0.2 - 1.3 mg/dL 03/21/2025 2:29 AM EDT [facility] ALT 14 <=41 U/L 03/21/2025 2:29 AM EDT [facility] AST 16 <=40 U/L 03/21/2025 2:29 AM EDT [facility] Alk Phos 95 36 - 123 U/L 03/21/2025 2:29 AM EDT [facility] eGFR (CKD-EPIcr 2020) 111 >=60 mL/min/1.7 3 m2 03/21/2025 2:29 AM EDT [facility] Comment:Estimated GFR was ca lculated using the CKD-EPIcr (2020) equation refit without race. The equation is recommended by the National Kidney Foundation - [place] [employer] Nephrology Task Force. Blood VENOUS BLOOD / Unknown Venipuncture / Unknown 03/21/2025 2:06 AM EDT 03/21/2025 2:06 AM EDT us Martin Cassidy NP CHEMISTRY ORDERABLES Final Res ult [facility] 1 [facility] , [place] [address] * (ABNORMAL) CBC WITH DIFF (03/21/2025 2:06 AM EDT) WBC 20.0(H) 3.7 - 10.3 x10(3)/mcL 03/21/2025 2:36 AM EDT [facility] RBC 2.97(L) 3.90 - 5.20 x10(6)/mcL 03/21/2025 2:36 AM EDT [facility] Hgb 9.2(L) 11.2 - 15.7 g/dL 03/21/2025 2:36 AM EDT [facility] Hct 28.4(L) 34.0 - 45.0 % 03/21/2025 [...] 2:36 AM EDT [facility] [place] # 0.2(L) 0.3 - 0.9 x10(3)/mcL 03/21/2025 [...] EDT 03/21/2025 2:06 AM EDT Martin Cassidy ANALOG CIRCUIT DESIGNER HEMATOLOGY ORDERABLES Final Re sult [facility] [employer] [facility] 1 [facility], [place] [address] * EK EKG 12 LEAD (03/21/2025 1:40 AM EDT) Anatomical Region Laterality Modality Electrocardiogra phy 03/21/2025 1:47 AM EDT Impressions 03/21/2025 2:[address] [facility] Test Date: 2025-03-21 [facility] Department: DEPID Room: 09 Gender: Female Pelt Salter: : 1985 Requested By: MARTIN CASSIDY Order Number: [id number] Reading MD: Juan Corona MD Measurements Intervals Lindsay Rate: 87 P: 30 CT: 148 QRS: 52 QRSD: 96 T: 49 QT: 362 QTc: 438 Interpretive Statements SINUS RHYTHM Electronically Signed On 03-21-2025 14:36:14 EDT by Juan Corona MD Narrative Procedure Note Juan Corona MD - 03/21/[address] [facility] Test Date: 2025-03-21 [facility] Department: DEPID Room: 09 Gender: Female Pelt Salter: : 1985 Requested By: MARTIN CASSIDY Order Number: [id number] Reading MD: Juan Corona MD Measurements Intervals Lindsay Rate: 87 P: 30 CT: 148 QRS: 52 QRSD: 96 T: 49 QT: 362 QTc: 438 Interpretive Statements SINUS RHYTHM Electronically Signed On 03-21-2025 14:36:14 EDT by Juan Corona MD Result [facility] Martin Cassidy ANALOG CIRCUIT DESIGNER IMG ECG ORDERABLES Final Resul t documented [...] 03/21/2025 documented in this encounter Care Teams Associate Professor Of English Relationship Specialty Start Date End Date Rodriguez Lindo [address] [place] [address] PCP - General Clinic/Center - [facility] ([facility]) 12/03/16 Vane Hollingsworth MD [address] [place] [address] Internal Medicine-Hematology and Oncology 02/21/25 documented as of this encounter
--- OUTSIDE RECORDS SUMMARY | 2025-04-09 02:09 | XMS_ITS | Clinical Summary ---
Author Organization [facility] Address [address] [place] [phone] Phone Care Team Providers Care Dot Net Architect Name Role Phone J-old, S-old Primary Care Physician Unavailab le Conditions or Problems Problem Name Problem Code Onset Date Status Entry Date Provider Comment Standard Description Annotate PELVIC PAIN 41850550 (SNOMED CT) 01/24 Active 01/24 Hallie Brown MD Pain in pelvis URI 83721973 (SNOMED CT) 01/07 Resolved 01/07 S-old J-old Upper respiratory infection Sinusitis, acute 53114559 (SNOMED CT) 01/17 Inactive 01/17 S-old J-old Acute sinusitis Allergic rhinitis 38700756 (SNOMED CT) 01/17 Active 01/17 S-old J-old Allergic rhinitis URI 82142211 (SNOMED CT) 01/07 Removed 01/07 S-old J-old Upper respiratory infection Hepatitis C antibody, positive serology 691338784 (SNOMED CT) 01/07 Active 01/07 Beatrizselvin Sandoval CNM Hepatitis C antibody detected Pelvic pain 39169033 (SNOMED CT) 01/02 Active 01/03 Beatrizselvin Sandoval CNM Pain in pelvis STD SCREENING 394790725 (SNOMED CT) 01/02 Inactive 01/03 Ebatriz Mchover CNM Venereal disease screening Routine gynecological examination 45700329 (SNOMED CT) 01/02 Inactive 01/02 Beatrizselvin Sandoval CNM Gynecologic examination ABDOMINAL PAIN 96273203 (SNOMED CT) 04/24 Active 04/24 Iraida Mayorga APRN Abdominal pain Medications Medication Instructions Start Date Stop Date Generic Name NDC Provider METRONIDAZOLE 500 MG TABS Take 1 tablet by mouth every 12 hours METRONIDAZOLE [id number] Hallie Brown MD AZITHROMYCIN 250 MG TABS TAKE 2 TABLETS BY MOUTH DAY 1 THEN 1 TABLET EVERYDAY DAY 2 TO 5 AZITHROMYCIN 09787265823 S-old J-old LORATADINE 10 MG TABS TAKE 1 TABLET BY MOUTH 1 TIME A DAY NEEDED FOR ALLERGIES LORATADINE 57096007535 S-old J-old BROMFED DM 30-2-10 MG/5ML ORAL SYRUP TAKE 1 TEASPOON BY MOUTH 4 TIMES A DAY NEEDED FOR COUGH PSEUDOEPH-BROMPH EN-DM 00568031789 S-old J-old Medications Administered No information available. Allergies, Adverse Reactions, Alerts Allergy Name Reaction Description Start Date Severity Statu s Provider HYDROCODONE Critical Active Iraida Morales ammarzean TEST KITCHEN HOME ECONOMIST Results Date Name Value Unit Range Flag [...] (Affirm) Pending order Ultrasound Pending order SNOMED-CT: 82379 [id number] Current Medications Documented Pending order Medication Recon ciliation Pending order SNOMED-CT: 81261 3000 Smoking Cessation Counseling Pending order SNOMED-CT: 82739 2428552652 Current Medications Documented Pending order Medication Recon ciliation Pending order Strep Screen 878 80 Pending order SNOMED-CT: 04641 6086360326 Current Medications Documented Pending order Hep C [...] Procedures Code Procedure Name Date Entry Date [facility]-[id number] Medication Reconciliation SCT-[id number] SNOMED-CT: 016747259 832864 Current Medications Documented OB US GEN Ultrasound 56053 [facility] # G.C. Chlamydia (lab order) 43107 [facility] # BV Yeast Trich Culture (Affirm) 201 02/10/19 SCT-[id number] Medication Reconciliation SCT-118313459 SNOMED-CT: 236294443 Smoking Cessation Counseling SCT-[id number] SNOMED-CT: 970835413 808556 Current Medications Documented SCT-823120006260009 Medication Reconciliation CPT-97804 Strep Screen 14715 2 SCT-[id number] SNOMED-CT: 173768868 037029 Current Medications Documented 799 [facility] # RPR/VDRL 15780 [facility] # BV Yeast Trich Culture (Affirm) 201 02/09/27 SCT-[id number] Medication Reconciliation 67275 [facility] # ThinPrep Pap w reflex HR HPV mRNA E 6/E7 8472 [facility] [place] [address] [facility] # HIV 1/2 Antigen & An tibodies -consent required CPT-G8447 Encounter documented using a certified EH R CPT-47056 Test PU Pelvic Ultrasound Vital Signs Date [...]
--- OUTSIDE RECORDS SUMMARY | 2025-04-09 02:10 | XMS_ITS ---
[facility] Address [address] [place] [address] Care Team Providers Care Silvering Applicator Name Role Phone Juan Luis Garza MD Primary Care Provider [phone] Active Problems * This document contains information [...] establish care with an oncologist here in [place] with [facility] once chemotherapy has been completed for further [...] Assessment & Plan (03/04/2025 4:39 PM EDT): [place] that the trazodone 100 mg was making [...] (11/28/2021): Added automatically from request for surgery [id number] Epigastric pain 11/28/2021 Overview (07/05/2022): Endoscopy 12/2021 normal. Mucous in stools 11/28/2021 Overview (07/05/2022): Colonoscopy 12/2021 normal. Repeat colonoscopy 12/2031. Encounter for long-term (current) use of NSAIDs 11/28/2021 Overview (11/28/2021): Added automatically from request for surgery [id number] Weight loss 11/28/2021 Overview (11/28/2021): Added automatically from request for surgery [id number] Loss of appetite 11/28/2021 Overview (11/28/2021): Added automatically from request for surgery [id number] Early satiety 11/28/2021 Overview (11/28/2021): Added automatically from request for surgery [id number] Hepatitis C virus infection cured after antiviral [...] I will refer the patient to a collision repair technician. Arthritis of lumbar spine 11/20/2021 Overview (11/20/2021): [...] / Cyclophosphamide* Plan Start Date:11/08/2024 Plan Provider:Oliverio Prescott MD Linked Problems Invasive ductal carcinoma of [...]
--- OUTSIDE RECORDS SUMMARY | 2025-04-09 02:10 | XMS_ITS | Clinical Summary ---
[facility] Address [address] [place] [phone] Care Team Providers Care Street Light Lamp Cleaner Name Role Phone Juan Luis Garza MD [...] As Needed for Wheezing. 18 g 2 4 Active ibuprofen (ADVIL,MOTRIN) 800 MG tablet Take 1 tablet by mouth Every 6 (Six) Hours As Needed for Mild Pain. 90 tablet 1 10/04/2024 5:45 PM EST 5 Active ondansetron (Zofran) 4 MG tablet Take 1 tablet by mouth Every 8 (Eight) Hours As Needed for Nausea or Vomiting. 15 tablet 10/27/2024 4:22 PM EST 5 026 Active Fezolinetant (VEOZAH) 45 MG tablet Take 1 tablet by mouth Daily. 30 tablet 5 Active oxybutynin (DITROPAN) 5 MG tablet 5 Active dexAMETHasone (DECADRON) 4 MG tablet Take 1 tablet by mouth As Needed (before and after treatments). 5 Active lidocaine-prilo timo (EMLA) 2.5-2.5 % cream Apply 1 Application topically to the appropriate area as directed As Needed. 5 Active loperamide (IMODIUM A-D) 2 MG tablet Take 1 tablet by mouth As Needed for Diarrhea (After treatments). 5 Active loratadine (CLARITIN) 10 MG tablet Take 1 tablet by mouth Daily. 5 Active naloxone (NARCAN) 4 MG/0.1ML nasal spray Administer 1 spray into the nostril(s) as directed by provider As Needed. 5 Active promethazine (PHENERGAN) 12.5 MG tablet Take 1 tablet by mouth Every 6 (Six) Hours As Needed. for nausea Active budesonide-form oterol (Symbicort) 160-4.5 MCG/ACT inhalerIndicati ons:Pulmonary emphysema, unspecified emphysema type Inhale 2 puffs 2 (Two) Times a Day. 10.2 g 3 5 Active traZODone (DESYREL) 50 MG tabletIndicatio ns:Insomnia, unspecified type Take 1 tablet by mouth every night at bedtime. 90 tablet 3 5 Active buPROPion SR (Wellbutrin SR) 150 MG 12 hr tabletIndicatio ns:Depression with anxiety Take 1 tablet by mouth 2 (Two) Times a Day. 180 tablet 3 5 Active oxyCODONE-aceta minophen (Percocet) 10-325 MG per tabletIndicatio ns:Malignant neoplasm of left breast in female, estrogen receptor positive, unspecified site of breast,Bilatera l hip pain,Chronic bilateral thoracic back pain,Neck pain,Pelvic pain Take 1 tablet by mouth Every 6 (Six) Hours As Needed for Moderate Pain or Severe Pain. 120 tablet 5 Active oxyCODONE-aceta minophen (Percocet) 10-325 MG per tabletIndicatio ns:Malignant neoplasm of left breast in female, estrogen receptor positive, unspecified site of breast,Bilatera l hip pain,Chronic bilateral thoracic back pain,Neck pain,Pelvic pain Take 1 tablet by mouth Every 6 (Six) Hours As Needed for Moderate Pain or Severe Pain. 120 tablet 025 Discontin ued(Reord er) Active Problems Problem Noted Date Diagnosed Date [...] establish care with an oncologist here in [place] with [facility] once chemotherapy has been completed for [...] Assessment & Plan (03/04/2025 4:39 PM EDT): [place] that the trazodone 100 mg was making [...] (11/28/2021): Added automatically from request for surgery [id number] Epigastric pain 11/28/2021 Overview (07/05/2022): Endoscopy 12/2021 normal. Mucous in stools 11/28/2021 Overview (07/05/2022): Colonoscopy 12/2021 normal. Repeat colonoscopy 12/2031. Encounter for long-term (current) use of NSAIDs 11/28/2021 Overview (11/28/2021): Added automatically from request for surgery [id number] Weight loss 11/28/2021 Overview (11/28/2021): Added automatically from request for surgery [id number] Loss of appetite 11/28/2021 Overview (11/28/2021): Added automatically from request for surgery [id number] Early satiety 11/28/2021 Overview (11/28/2021): Added automatically from request for surgery [id number] Hepatitis C virus infection cured after antiviral [...] I will refer the patient to a speech correction assistant. Arthritis of lumbar spine 11/20/2021 Overview (11/20/2021): [...] Description 03/04/2025 8:58 AM CDT Hospital Encounter [facility] [address] [place] [address] 03/02/2025 2:30 PM EDT Office Visit [facility] [address] [place] [phone] Juan Luis Garza MD Malignant neoplasm of left breast in female, estrogen receptor positive, unspecified site of breast (Primary Dx); Bilateral hip pain; Chronic bilateral thoracic back pain; Neck pain; Pelvic pain; Depression with anxiety; Pulmonary emphysema, unspecified emphysema type; Insomnia, unspecified type 03/02/2025 Telephone [facility] [address] [place] [phone] Juan Luis Garza MD 03/02/2025 Telephone [facility] [address] [place] [phone] Juan Luis Garza MD Prior Authorization 03/02/2025 Travel 02/01/2025 Refill [facility] [address] [place] [address] Avila Puri, DO Head lice infestation (Primary Dx) 01/28/2025 Refill [facility] [address] [place] [address] [phone] Avila Puri, DO Head lice 01/28/2025 Refill [facility] [address] [facility] [address] [place] [address] Avila Puri, DO Head lice (Primary Dx) [...] Mother Ne Wolff Drug abuse Mother Ne Mariella Early Mother Ne Jjberry Alcohol abuse Paternal Grandfather Liver disease Paternal [...] or training? Not on file Preferred Language Bahraini 09/27/2024 PHQ-2 Answer Date Recorded Patient Health [...] Description 06/06/2025 10:30 AM EDT Office Visit [facility] [address] [place] [phone] Juan Luis Garza MD [address] [address] Health Maintenance Due Date Last Done Comments [...] history exists Medical Devices Implanted Type Area Computer Forensics Investigator Device Identifier Shelf Expiration Date Model / Serial / Lot Clipapplr M/ Endo Ligaclip 30clp 11in Md - [id number] Implanted:Qty : 1 on 07/29/2024 by Giovanna Tolentino MD at [facility] Implant Breast [employer] DIV OF J AND J 04/07/2029 [id number] / / [id number] Clipapplr M/ Endo Ligaclip 30clp 11in Md - [id number] Implanted:Qty : 1 on 07/29/2024 by Giovanna Tolentino MD at [facility] Implant Breast [employer] DIV OF J AND J 04/07/2029 [id number] / / [id number] Markr Tiss/Brst Magtrace No/Raditon Inj/Liq 2ml - [id number] Implanted:Qty : 1 on 07/29/2024 by Giovanna Tolentino MD at [facility] Implant Left: Breast [employer] [id number] / / Dev Contrl Tiss Stratafix Spiral Pds Plus Sz0 Ct/2 30cm Cecy - [id number] Implanted:Qty : 1 on 10/01/2024 by Ministerio Gamino MD at [facility] Implant N/A: Abdomen [employer] DIV OF J AND J 04/07/2025 [id number] / / [id number] Kt Port Clearvue Powerport Isp W/8f Poly Cath - [id number] Implanted:Qty : 1 on 10/27/2024 by Giovanna Tolentino MD at [facility] Implant Right: Chest BARD PERIPHERAL VASCULAR 11/05/2025 [id number] / / [id number] Procedures Procedure Name Priority Date/Time Associated Diagnosis [...] Quantitative, PCR (graph) (07/09/2024 3:44 PM CDT) Hepatitis C Quantitation HCV Not Detected IU/mL 07/13/2024 9:13 AM TECHNOLOGY INSTRUCTOR [facility] Test Information Comment 07/13/20 9:13 AM TECHNOLOGY INSTRUCTOR [facility] Comment:The quantitative ran ge of this assay is 15 IU/mL to 100 million IU/mL. Blood Venipuncture / Unknown 07/09/2024 3:44 PM CDT 07/09/2024 4:01 PM CDT Narrative [facility] - 07/13/2024 9:13 AM TECHNOLOGY INSTRUCTOR Performed at: [address] [id number] Trace Evidence Technician: Manisha Alvarez MD, Phone: [phone] us Khadijah Kapadia DO LAB BLOOD ORDERABLES Final Res ult [facility] [address] [place] [address], [place] [phone] * (ABNORMAL) Mammo Diagnostic Digital Tomosynthesis Left [...] soft copy workstation. Real-time ultrasound performed with airport representative images and report stored to PACS [...] Result * COLONOSCOPY (12/27/2021 12:50 PM CDT) us Tamera Smith MD INTERFACE NEEDS Final Result from Last 3 Months or Most Recently Relevant to Health Maintenance Insurance Advance Directives * CPR (Attempt to Resuscitate) (Latest Code Status on File) Date Activated Date Inactivated Comments 07/29/2024 6:41 PM 07/30/2024 12:24 PM Question Answer Comments Code Status (Patient has no pulse and is not breathing): CPR (Attempt to Resuscitate) Medical Interventions (Patie nt has pulse or is breathing): Full Support Care Teams Street Light Lamp Cleaner Relationship Specialty Start Date End Date Juan Luis Garza MD [address] [place] [phone] PCP - General Family Medicine 03/02/25
--- OUTSIDE RECORDS SUMMARY | 2025-04-09 02:10 | XMS_ITS | Encounter Summary ---
Demographics Address [address] [place] [phone] Mobile Phone Email Address Preferred Language en Marital Status Judaism Affiliation Unknown Race White Ethnic Group Not or Lati no Author Organization Healthcare Address [address] [place] [phone] Care Team Providers Care Interior Assemblies Installer Name Role Phone Pcp, No Primary Care [...] on filedocumented in this encounter Care Teams Interior Assemblies Installer Relationship Specialty Start Date End Date Pcp, Mounika [address] [place] [address] PCP - General Family Medicine 02/07/25 documented as of this encounter
--- OUTSIDE RECORDS SUMMARY | 2025-04-09 02:11 | XMS_ITS | Encounter Summary ---
Author Organization [facility] Address [address] [place] [address] Care Team Providers Care Structural Steel Worker Helper Name Role Phone Juan Luis Garza MD Primary Care Provider [phone] Reason for Visit * Reason Onset Date Comments Med Refill 08/09/2024 Encounter Details Date Type Department Care Team (Late st Contact Info) Description 08/09/2024 Refill [facility] [address] [facility] [address] [place] [address] Avila Puri, [address] [facility] [address] [place] [phone] Postoperative pain Social History Tobacco Use Types [...] Visit [facility] [address] [place] [phone] Juan Luis Garza MD [address] [place] [address] documented as of this encounter Visit Diagnoses Diagnosis Postoperative pain Other acute postoperative pain documented in this encounter Care Teams Structural Steel Worker Helper Relationship Specialty Start Date End Date Juan Luis Garza MD [address] [place] [address] PCP - General Family Medicine 03/02/25 documented as of this encounter
--- OUTSIDE RECORDS SUMMARY | 2025-04-09 02:11 | XMS_ITS | Encounter Summary ---
[facility] Address [address] [place] [phone] Care Team Providers Care Pest Management Supervisor Name Role Phone Juan Luis Garza MD Primary Care Provider [phone] Encounter Details Date Type Department Care Team (Late st Contact Info) Description 03/02/2025 Telephone [facility] [address] [place] [phone] Juan Luis Garza MD [address] [place] [address] Social History Tobacco Use Types Packs/Day [...] or training? Not on file Preferred Language Cook Islander 09/27/2024 PHQ-2 Answer Date Recorded Patient Health [...] EDT All meds have been forwarded to [facility] [address] * Telephone Encounter - Laurie Saleh RegSched Rep - 03/02/2025 4:15 PM EDT Patients called in requesting that her prescriptions that were sent in today be sent to [facility] [address] in [facility] instead due to her insurance. Please advise thank you documented in this encounter Plan of Treatment Upcoming Encounters Date Type Department Care Team (Late st Contact Info) Description 06/06/2025 10:30 AM EDT Office Visit [facility] [address] [phone] Juan Luis Garza MD [address] [place] [address] documented as of this encounter Visit Diagnoses Diagnosis Pulmonary emphysema, unspecified emphysema type Insomnia, unspecified type Depression with anxiety Dysthymic disorder documented in this encounter Care Teams Pest Management Supervisor Relationship Specialty Start Date End Date Juan Luis Garza MD [address] [place] [address] [phone] PCP - General Family Medicine 03/02/25 documented as of this encounter
--- OUTSIDE RECORDS SUMMARY | 2025-04-09 02:11 | XMS_ITS | Encounter Summary ---
[facility] Address [address] [place] [address] Care Team Providers Care Crusher Loader Operator Name Role Phone Juan Luis Garza MD Primary Care Provider [phone] Reason for Visit * Reason Onset Date Comments Prior Authorization 03/02/2025 Encounter Details Date Type Department Care Team (Late st Contact Info) Description 03/02/2025 Telephone [facility] [address] [place] [phone] Juan Luis Garza MD [address] [place] [address] Prior Authorization Social History Tobacco Use [...] or training? Not on file Preferred Language Cambodian 09/27/2024 PHQ-2 Answer Date Recorded Patient Health [...] MA - 03/03/2025 10:06 AM EDT Rubi: [id number] Was sent to the insurance with question answered. Waiting on response. * Telephone Encounter - Tisha Mackenzie RegSched Rep - 03/02/2025 4:21 PM EDT Fax notification received that PA has been started for Oxycodone (rubi [id number]) * Telephone Encounter - Tisha Mackenzie RegSched Rep - 03/02/2025 4:08 PM EDT PA request received from pharmacy for Oxycodone. Request indexed to chart documented in this encounter Plan of Treatment Upcoming Encounters Date Type Department Care Team (Late st Contact Info) Description 06/06/2025 10:30 AM EDT Office Visit [facility] [address] [place] [phone] Juan Luis Garza MD [address] [place] [address] documented as of this encounter Visit Diagnoses Not on filedocumented in this encounter Care Teams Crusher Loader Operator Relationship Specialty Start Date End Date Juan Luis Garza MD [address] [place] [address] PCP - General Family Medicine 03/02/25 documented as of this encounter
--- OUTSIDE RECORDS SUMMARY | 2025-04-09 02:11 | XMS_ITS ---
Author Organization [facility] Address [address] [place] [address] Phone Care Team Providers Care Workers Compensation Claims Examiner Name Role Phone Rodriguez Lindo Primary Care Provider [phone]- [phone] Vane Hollingsworth MD Unavailable [phone]- [phone] Active Problems Problem Noted Date Diagnosed Date [...] Treatment Medications Discontinue Reason Plan Provider Cycles [facility] Supportive Care Hyperemesis and Dehydration 02/09/2025 02/24/2025 No medications scheduled. Reorder Vane Hollingsworth MD 1 of 2 cycles started
--- OUTSIDE RECORDS SUMMARY | 2025-04-09 02:11 | XMS_ITS | Encounter Summary ---
Author Organization [place] [address] Care Team Providers Care Take Out Waiter Name Role Phone Rodriguez Lindo Primary Care Provider [phone] Eden Noble RN Unavailable Unavailable Encounter Details Date Type Department Care Team (Late st Contact Info) Description 02/09/2025 Nutrition [facility] Medical Oncology [place] [phone] Marika Damon RD, LD Social History Tobacco [...] Estimated Nutrition Needs: kcals/day needs: 22-25 kcal/kg (7146-7041) gm protein/day needs: 1.2-1.5 gm/kg (98-122) Fluids [...] AM EDT Appointment [place] [address] 04/15/2025 9:15 AM EDT Appointment [facility] [place] [address] Vane Hollingsworth MD [address] [place] [address] documented as of this encounter Visit Diagnoses Not on filedocumented in this encounter Care Teams Take Out Waiter Relationship Specialty Start Date End Date [facility] [address] [place] [phone] PCP - General Clinic/Center - [facility] ([facility]) 12/03/16 Eden Noble RN Registered Nurse Infusion Therapy 02/09/25 02/09/25 documented as of this encounter
--- OUTSIDE RECORDS SUMMARY | 2025-04-09 02:11 | XMS_ITS | Encounter Summary ---
[facility] [address] [place] [phone] Care Team Providers Care Washing Machine Loader Name Role Phone Juan Luis Garza MD [...] or training? Not on file Preferred Language Mexican 09/27/2024 PHQ-2 Answer Date Recorded Patient Health [...] Office Visit [facility] [address] [place] [phone] Juan Luis Garza MD [address] [place] [address] documented as of this encounter Visit Diagnoses Not on filedocumented in this encounter Care Teams Washing Machine Loader Relationship Specialty Start Date End Date Juan Luis Garza MD [address] [place] [address] [phone] PCP - General Family Medicine 03/02/25 documented as of this encounter
--- OUTSIDE RECORDS SUMMARY | 2025-04-09 02:11 | XMS_ITS | Encounter Summary ---
Author Organization [place] [address] Care Team Providers Care Center Aisle Cashier Name Role Phone Rodriguez Lindo Primary Care Provider [phone]- [phone] Eden Noble RN Unavailable Unavailable Reason for Visit * Reason Onset Date Comments Medication Refill 02/09/2025 Encounter Details Date Type Department Care Team (Late st Contact Info) Description 02/09/2025 Refill [facility] [place] [address] Ana oRsa Del Angel, MARTÍN [address] [place] [address] Medication Refill Social History Tobacco Use Types [...] AM EDT Appointment [facility] [place] [address] 04/15/2025 9:15 AM EDT Appointment [facility] [place] [address] Vane Hollingsworth MD [address] [place] [address] documented as of this encounter Visit Diagnoses [...] documented as of this encounter Care Teams Center Aisle Cashier Relationship Specialty Start Date End Date Rodriguez Lindo [address] [place] [phone] PCP - General Clinic/Center - [facility] ([facility]) 12/03/16 Eden Noble, RN Registered Nurse Infusion Therapy 02/09/25 02/09/25 documented as of this encounter
--- OUTSIDE RECORDS SUMMARY | 2025-04-09 02:11 | XMS_ITS | Clinical Summary ---
Author Organization [facility] Address [address] [facility] [address] [place] [address] Care Team Providers Care Electrical Apprentice Name Role Phone Jaxson Cole MD, Avila [...] patient's age to complete this topic Insurance [place] Care Teams Electrical Apprentice Relationship Specialty Start Date End Date Avila Puri Jr., MD [address] [place] [phone] PCP - General Family Medicine 09/08/24
--- NOTE | 2025-04-09 02:12 | ECG_ITS ---
APPROVED REPORT Exam: Resting ECG HR:76 bpm ECG Measurements Heart Rate 76 AXES AL 143 P 106 QRSd 93 QRS 127 QT 368 T 120 QTc 398 Conclusion SINUS RHYTHM POSSIBLE RIGHT VENTRICULAR HYPERTROPHY [SOME/ALL OF: PROMINENT R IN V1, LATE TRANSITION, RAD, RAVEN, SSS] ABNORMAL ECG No STEMI Electronically signed by : KARIME SANCHEZ, 04/09/2025 06:33:55
--- OUTSIDE RECORDS SUMMARY | 2025-04-09 02:12 | XMS_ITS ---
Author Organization [facility] Address [address] [facility], [address] [place] [address] Care Team Providers Care Manager Of Information Name Role Phone Avila Puri Erlinda LARSEN Primary Care Provider [phone] Active Problems Patient Care Coordination No te [...]
--- OUTSIDE RECORDS SUMMARY | 2025-04-09 02:12 | XMS_ITS | Clinical Summary ---
Author Organization [facility] LIONELScott SHERLY Address [address] [place] [address] Phone Care Team Providers Care Material Carrier Name Role Phone Rodriguez Lindo Primary Care Provider [phone]- [phone] Vane Hollingsworth MD Unavailable [phone]- [phone] Allergies Active Allergy Reactions Criticality Noted Date [...] EDT - 03/21/2025 2:20 AM EDT Emergency [facility] [address] Lupe Finney MD Chest pain, unspecified type (Primary Dx); Left against medical advice Discharge Disposition: Left Against Medical Advice 03/18/2025 9:30 AM EDT - 03/18/2025 11:59 PM EDT Hospital Encounter [facility] [place] [address] Malignant neoplasm of overlapping sites of left breast in female, estrogen receptor positive (HCC) (Primary Dx) Discharge Disposition: Home or Self Care 03/16/2025 8:22 AM EDT - 03/16/2025 11:59 PM EDT [facility] [place] [address] Ana Rosa Del Angel, MARTÍN Malignant neoplasm of overlapping sites of left breast in female, estrogen receptor positive (HCC) (Primary Dx); Encounter for antineoplastic chemotherapy Discharge Disposition: Home or Self Care 03/16/2025 8:13 AM EDT - 03/16/2025 8:21 AM EDT [facility] [place] [address] Malignant neoplasm of overlapping sites of left breast in female, estrogen receptor positive (HCC) (Primary Dx) Discharge Disposition: Home or Self Care 03/16/2025 8:12 AM EDT Hospital Encounter [facility] [place] [address] Malignant neoplasm of overlapping sites of left breast in female, estrogen receptor positive (HCC) (Primary Dx) Discharge Disposition: Home or Self Care 02/22/2025 1:14 PM EDT - 02/22/2025 11:59 PM EDT Hospital Encounter [place] [address] Malignant neoplasm of overlapping sites of left breast in female, estrogen receptor positive (HCC) (Primary Dx) Discharge Disposition: Home or Self Care 02/21/2025 9:20 AM EDT - 02/21/2025 11:59 PM EDT Hospital Encounter [place] [address] Malignant neoplasm of overlapping sites of left breast in female, estrogen receptor positive (HCC) (Primary Dx) Discharge Disposition: Home or Self Care 02/21/2025 8:27 AM EDT - 02/21/2025 9:19 AM EDT Hospital En[facility] [place] [address] Vane Hollingsworth MD Malignant neoplasm of overlapping sites of left breast in female, estrogen receptor positive (HCC) (Primary Dx) Discharge Disposition: Home or Self Care 02/21/2025 8:13 AM EDT - 02/21/2025 8:26 AM EDT Hospital Encounter [facility] [address] Malignant neoplasm of overlapping sites of left breast in female, estrogen receptor positive (HCC) (Primary Dx) Discharge Disposition: Home or Self Care 02/14/2025 11:04 AM EDT - 02/14/2025 11:59 PM EDT Hospital Encounter [facility] [place] [address] Malignant neoplasm of overlapping sites of left breast in female, estrogen receptor positive (HCC) (Primary Dx) Discharge Disposition: Home or Self Care 02/14/2025 10:51 AM EDT - 02/14/2025 11:03 AM EDT Hospital Encounter [facility] [place] [address] Malignant neoplasm of overlapping sites of left breast in female, estrogen receptor positive (HCC) (Primary Dx); Antineoplastic chemotherapy induced anemia Discharge Disposition: Home or Self Care 02/09/2025 9:00 AM EDT - 02/09/2025 11:59 PM EDT Hospital Encounter [place] [address] Malignant neoplasm of overlapping sites of left breast in female, estrogen receptor positive (HCC) (Primary Dx) Discharge Disposition: Home or Self Care 02/09/2025 8:30 AM EDT - 02/09/2025 8:59 AM EDT Hospital [facility] [place] [address] Ana Rosa Del Angel APRN Antineoplastic chemotherapy induced anemia (Primary Dx) Discharge Disposition: Home or Self Care 02/09/2025 8:15 AM EDT - 02/09/2025 8:29 AM EDT Hospital Encounter [facility] [place] [address] Malignant neoplasm of overlapping sites of left breast in female, estrogen receptor positive (HCC) (Primary Dx) Discharge Disposition: Home or Self Care 02/09/2025 Refill [facility] [place] [address] Ana Rosa Del Angel APRN Medication Refill 02/09/2025 Nutrition [facility] [place], [place] [id number] Marika Damon RD,LD 02/07/2025 Refill [facility] [place], [place] [id number] Ana Rosa Del Angel APRN Medication Refill 02/07/2025 Telephone [facility] [place], [place] [id number] Vane Hollingsworth MD Symptom Call 02/03/2025 Orders [place] [address] Sosa Ernst APRN Malignant neoplasm of overlapping sites of left breast in female, estrogen receptor positive (HCC) (Primary Dx) 02/03/2025 [facility] Cancer [facility] [place] [address] Marika Damon, RD,LD 02/02/2025 1:30 PM EDT - 02/02/2025 11:59 PM EDT Hospital Encounter [place] [address] Malignant neoplasm of overlapping sites of left breast in female, estrogen receptor positive (HCC) (Primary Dx) Discharge Disposition: Home or Self Care 02/01/2025 9:08 AM EDT - 02/01/2025 11:59 PM EDT Hospital Encounter [place] [address] Malignant neoplasm of overlapping sites of left breast in female, estrogen receptor positive (HCC) (Primary Dx) Discharge Disposition: Home or Self Care 02/01/2025 8:26 AM EDT - 02/01/2025 9:07 AM EDT Hospital Encounter [facility] [place] [address] Ana Rosa Del Angel APRN Malignant neoplasm of overlapping sites of left breast in female, estrogen receptor positive (HCC) (Primary Dx); Encounter for antineoplastic chemotherapy; Other insomnia Discharge Disposition: Home or Self Care 02/01/2025 8:00 AM EDT - 02/01/2025 8:25 AM EDT Hospital Encounter [facility] [address] Malignant neoplasm of overlapping sites of left breast in female, estrogen receptor positive (HCC) (Primary Dx) Discharge Disposition: Home or Self Care 02/01/2025 Social Work [facility] Cancer [facility] [place] [address] Teresa Parrish, [employer] 01/19/2025 Social Work [facility] [place] [address] Sekou Berrios, [employer] 01/14/2025 2:40 PM EDT - 01/14/2025 11:59 PM EDT Hospital Encounter [facility] [address] Malignant neoplasm of overlapping sites of left breast in female, estrogen receptor positive (HCC) (Primary Dx); Low back pain, unspecified back pain laterality, unspecified chronicity, unspecified whether sciatica present Discharge Disposition: Home or Self Care 01/14/2025 11:30 AM EDT - 01/14/2025 2:39 PM EDT Hospital Encounter [facility] [place], [place] [id number] Vane Hollingsworth MD Malignant neoplasm of overlapping sites of left breast in female, estrogen receptor positive (HCC) (Primary Dx); Low back pain, unspecified back pain laterality, unspecified chronicity, unspecified whether sciatica present Discharge Disposition: Home or Self Care 01/14/2025 Social Work [facility] Cancer [facility] [place] [address] Teresa Parrish MSW 01/14/2025 Telephone [facility] [address] [address] Khadijah Garza, Certified Addiction Counselor New Patient 01/11/2025 Telephone [facility] [place], [place] [id number] Vane Hollingsworth MD Schedule Appointment (Consult) from [...] EDT Appointment [facility] [place] [address] 04/15/2025 9:15 AM EDT Appointment [facility] [place] [address] Vane Hollingsworth MD [address] [place] [address] Health Maintenance Due Date Last Done Comments [...] 1.9 mmol/L 03/21/2025 2:26 AM EDT [facility] Blood VENOUS BLOOD / Unknown Venipuncture / Unknown 03/21/2025 2:07 AM EDT 03/21/2025 2:07 AM EDT Martin Cassidy F[employer]ER BR[employer] MAN CHEMISTRY ORDERABLES Final Res ult Performing Organization Address [facility] Co de Phone Number [facility] [address] [place] [address] , [place] [address] * TROPONIN-T HIGH SENSITIVITY BASELINE W/ REFLEX (03/21/2025 2:06 AM EDT) Pathologist [facility] [id number] <6 <14 ng/L 03/21/2025 2:29 AM EDT [facility] Blood VENOUS BLOOD / Unknown Venipuncture / Unknown 03/21/2025 2:06 AM EDT 03/21/2025 2:06 AM EDT Narrative [facility] - 03/21/2025 2:29 AM EDT Ingestion of manda doses of biotin (>5 mg/day) taken within 8 hours of drawing blood sample can interfere with this immunoassay test. Martin Cassidy F[employer] MAN CHEMISTRY ORDERABLES Final Res ult Performing Organization Address [facility]/ZIP Co de Phone Number [facility] 1 [facility] , [place] [address] * (ABNORMAL) CBC WITH DIFF (03/21/2025 2:06 [...] 2:36 AM EDT [facility] [place] # 0.2(L) 0.3 - 0.9 x10(3)/mcL 03/21/2025 [...] Re sult [facility] 1 [facility] , [place] [address] * (ABNORMAL) COMPREHENSIVE METABOLIC PANEL (03/21/2025 2:06 [...] 03/21/2025 2:29 AM EDT [facility] Calcium 9.0 8.6 - 10.4 mg/dL 03/21/2025 2:29 AM EDT [facility] Glucose Lvl 89 70 - 99 mg/dL 03/21/2025 2:29 AM EDT [facility] BUN 12 6 - 20 mg/dL 03/21/2025 2:29 AM EDT [facility] Creatinine 0.69 0.51 - 1.30 mg/dL 03/21/2025 2:29 AM EDT [facility] Albumin 4.0 3.5 - 5.2 gm/dL 03/21/2025 2:29 AM EDT [facility] Total Protein 6.2(L) 6.4 - 8.3 gm/dL 03/21/2025 2:29 AM EDT [facility] Bili Total 0.3 0.2 - 1.3 mg/dL 03/21/2025 2:29 AM EDT [facility] ALT 14 <=41 U/L 03/21/2025 2:29 AM EDT [facility] AST 16 <=40 U/L 03/21/2025 2:29 AM EDT [facility] Alk Phos 95 36 - 123 U/L 03/21/2025 2:29 AM EDT [facility] eGFR (CKD-EPIcr 2020) 111 >=60 mL/min/1.7 3 m2 03/21/2025 2:29 AM EDT [facility] Comment:Estimated GFR was ca lculated using the CKD-EPIcr (2020) equation refit without race. The equation is recommended by the National Kidney Foundation - [place] [employer] Nephrology Task Force. Blood VENOUS BLOOD / Unknown Venipuncture / Unknown 03/21/2025 2:06 AM EDT 03/21/2025 2:06 AM EDT us Martni Cassidy NP CHEMISTRY ORDERABLES Final Res ult [facility] 1 [facility] , [address] [place] [id number] * EK EKG 12 LEAD (03/21/2025 1:40 AM EDT) Anatomical Region Laterality Modality Electrocardiogra phy 03/21/2025 1:47 AM EDT Impressions 03/21/2025 2:[address] Test Date: 2025-03-21 Pat Name: [facility] Department: [facility] Room: 09 Gender: Female Hobber: : 1985 Requested By: MARTIN CASSIDY Order Number: [id number] Reading MD: Juan Corona MD Measurements Intervals [place] Rate: 87 P: 30 CA: 148 QRS: 52 QRSD: 96 T: 49 QT: 362 QTc: 438 Interpretive Statements SINUS RHYTHM Electronically Signed On 03-21-2025 14:36:14 EDT by Juan Corona MD Narrative Procedure Note Juan Corona MD - 03/21/[address] Test Date: 2025-03-21 Pat Name: [facility] Department: [facility] Room: 09 Gender: Female Hobber: : 1985 Requested By: MARTIN CASSIDY Order Number: [id number] Reading MD: Juan Corona MD Measurements Intervals [place] Rate: 87 P: 30 CA: 148 QRS: 52 QRSD: 96 T: 49 QT: 362 QTc: 438 Interpretive Statements SINUS RHYTHM Electronically Signed On 03-21-2025 14:36:14 EDT by Juan Corona MD Martin Cassidy F[employer]ER BRUSH MAN IMG ECG ORDERABLES Final Resul t * (ABNORMAL) RETICULOCYTE PANEL DIAGNOSTIC (02/14/2025 11:01 AM EDT) Retic Cnt Auto 3.9(H) 0.9 - 2.5 % 02/14/2025 11:15 AM EDT [facility] [employer] Retic # 135.5(H) 40.0 - 110.0 x10(3)/mcL 02/14/2025 11:15 AM EDT [facility] Fraction % 29.1(H) 3.1 - 17.6 % 02/14/2025 11:15 AM EDT [facility] Retic Hgb 35.1 28.0 - 38.0 pg 02/14/2025 11:15 AM EDT [facility] Blood VENOUS STRUCTURE / Unknown Port / Unknown 02/14/2025 11:01 AM EDT 02/14/2025 11:04 AM EDT Narrative [facility] - 02/14/2025 11:15 AM EDT Reticulocyte [...] [id number]. (4)Goodnojack, L., et al. 2010. Blood [phone]. Ana Rosa Del Angel APRN HEMATOLOGY ORDERABLES Ernestine pinedo Result [facility] 1 [facility] , [address] [place] [phone] * IRON+TIBC (02/14/2025 11:01 AM EDT) Iron 63 30 - 160 mcg/dL 02/14/2025 12:02 PM EDT [facility] Transferrin 205 200 - 360 mg/dL 02/14/2025 12:02 PM EDT [facility] Transferrin Saturation 22 20 - 50 % 02/14/2025 12:02 PM EDT [facility] TIBC 287 250 - 400 mcg/dL 02/14/2025 12:02 PM EDT [facility] Blood VENOUS STRUCTURE / Unknown Port / Unknown 02/14/2025 11:01 AM EDT 02/14/2025 11:04 AM EDT [facility] Jose Guadalupe'Onur STRATEGIC MARKETING LEADER CHEMISTRY ORDERABLES Final Result Performing Organization Address [facility] Co de Phone Number [facility] 1 [facility] , [place] [address] * FERRITIN (02/14/2025 11:01 AM EDT) Ferritin 144 30 - 150 ng/mL 02/14/2025 12:02 PM EDT [facility] Comment:The lower threshold of 30 is [...] AM EDT 02/14/2025 11:04 AM EDT Narrative [facility] - 02/14/2025 12:02 PM EDT Ingestion of manda doses of biotin (>5 mg/day) taken within 8 hours of drawing blood sample can interfere with this immunoassay test. Ana Rosa L O'[employer]ur STRATEGIC MARKETING LEADER CHEMISTRY ORDERABLES Final Result Performing Organization Address [facility] Co de Phone Number [facility] 1 [facility] , [place] [address] * MAGNESIUM LEVEL (02/09/2025 8:45 AM EDT) Magnesium 2.1 1.6 - 2.4 mg/dL 02/09/2025 9:32 AM EDT [facility] Blood VENOUS STRUCTURE / Unknown Medicare Port / Unknown 02/09/2025 8:45 AM EDT 02/09/2025 8:46 AM EDT us Dewitt [facility] STRATEGIC MARKETING LEADER CHEMISTRY ORDERABLES Ernestine l Result [facility] [address] [place] [address] from Last 3 Months Insurance MDR Advance Directives For more information, please contact: [phone] * Full Code (Latest Code Status on File) Date Activated Date Inactivated Comments 11/01/2017 4:31 PM 11/04/2017 6:30 PM Care Teams Material Carrier Relationship Specialty Start Date End Date Rodriguez Lindo [address] [place] [address] PCP - General Clinic/Center - [facility] ([facility]) 12/03/16 Vane Hollingsworth MD [address] [place] [address] Internal Medicine-Hematology and Oncology 02/21/25
--- OUTSIDE RECORDS SUMMARY | 2025-04-09 02:12 | XMS_ITS | Clinical Summary ---
Demographics Address [address] [place] [phone] Mobile Phone Email Address Preferred Language en Marital Status Rastafari Affiliation Unknown Race White Ethnic Group Not or Lati no Author Organization Healthcare Address [address] [place] [address] Care Team Providers Care Registered Respiratory Technician Name Role Phone Pcp, No Primary [...] EDT - 03/19/2025 2:48 AM EDT Emergency [facility] Emergency Department [address] [place] [phone] Abbe Ramires MD Cancer associated pain (Primary Dx); Hypokalemia Discharge Disposition: Home or Self Care 03/19/2025 Travel 03/16/2025 4:56 PM EDT - 03/16/2025 5:25 PM EDT Emergency [facility] Emergency Department [address] [place] [address] Discharge Disposition: Left WIthout Being Seen 03/16/2025 Travel 02/27/2025 10:52 PM EDT - 02/28/2025 1:08 AM EDT Emergency [facility] Emergency Department [address] [place] [phone] García Matias MD Cancer associated pain (Primary Dx) Discharge Disposition: Home or Self Care 02/27/2025 Travel 02/07/2025 4:00 PM EDT - 02/07/2025 6:31 PM EDT Emergency [facility] Emergency Department [address] [place] [address] German Gonzalez DO Cancer associated pain (Primary Dx) Discharge Disposition: Home or Self Care 02/07/2025 Patient Outreach [facility] Medicine Specialties [address] [place] [address] Boni Anna 02/07/2025 Travel from Last 3 [...] [facility]-Depression Screening 1985 [facility]-/Child/Adol SDOH Screenings 1985 [id number] Vaccine (#1) 01/29/1989 [facility]-Obesity Intervention 01/29/1990 [facility]-Varicella [...] LAB HEMATOLOGY METHOD 03/19/2025 1:09 AM EDT [facility] Blood Venous blood specimen / Unknown Venipuncture / Unknown 03/19/2025 12:52 AM EDT 03/19/2025 1:07 AM EDT us Abbe Ramires MD LAB BLOOD ORDERABLES Final Resul t [facility] [address] [place] [address] * (ABNORMAL) CBC w/diff (03/19/2025 12:52 AM EDT) Only the most recent of2 resultswithin the time period is included. WBC Count 41.22(H) 3.70 - 10.30 10*3/uL LAB HEMATOLOGY METHOD 03/19/2025 1:12 AM EDT [facility] RBC Count 3.12(L) 3.90 - 5.20 10*6/uL LAB HEMATOLOGY METHOD 03/19/2025 1:12 AM EDT [facility] HGB 9.5(L) 11.2 - 15.7 g/dL LAB HEMATOLOGY METHOD 03/19/2025 1:12 AM EDT [facility] HCT 29.0(L) 34.0 - 45.0 % LAB HEMATOLOGY METHOD 03/19/2025 1:12 AM EDT [facility] Platelet Count 301 155 - 369 10*3/uL LAB HEMATOLOGY METHOD 03/19/2025 1:12 AM EDT [facility] MCV 93 79 - 98 fL LAB HEMATOLOGY METHOD 03/19/2025 1:12 AM EDT [facility] MCH 30.4 26.0 - 32.0 pg LAB HEMATOLOGY METHOD 03/19/2025 1:12 AM EDT [facility] MCHC 32.8 30.7 - 35.5 g/dL LAB HEMATOLOGY METHOD 03/19/2025 1:12 AM EDT [facility] RDW 16.6(H) 11.5 - 14.5 % LAB HEMATOLOGY METHOD 03/19/2025 1:12 AM EDT [facility] MPV 10.1 8.8 - 12.5 fL LAB HEMATOLOGY METHOD 03/19/2025 1:12 AM EDT [facility] nRBC 0.0 <=0.0 per 100 WBCs LAB HEMATOLOGY METHOD 03/19/2025 1:12 AM EDT [facility] Differential Type Automated LAB HEMATOLOGY METHOD 03/19/2025 1:12 AM EDT [facility] Neutrophils % 95 % LAB HEMATOLOGY METHOD 03/19/2025 1:12 AM EDT [facility] Lymphocytes % 2 % LAB HEMATOLOGY METHOD 03/19/2025 1:12 AM EDT [facility] Monocytes % 1 % LAB HEMATOLOGY METHOD 03/19/2025 1:12 AM EDT [facility] Eosinophils % 0 % LAB HEMATOLOGY METHOD 03/19/2025 1:12 AM EDT [facility] Basophils % 0 % LAB HEMATOLOGY METHOD 03/19/2025 1:12 AM EDT [facility] Immature Granulocytes % 2 % LAB HEMATOLOGY METHOD 03/19/2025 1:12 AM EDT [facility] Neutrophils Absolute 39.07(H) 1.60 - 6.10 10*3/uL LAB HEMATOLOGY METHOD 03/19/2025 1:12 AM EDT [facility] Lymphocytes Absolute 0.81(L) 1.20 - 3.90 10*3/uL LAB HEMATOLOGY METHOD 03/19/2025 1:12 AM EDT [facility] Monocytes Absolute 0.34 0.30 - 0.90 10*3/uL LAB HEMATOLOGY METHOD 03/19/2025 1:12 AM EDT [facility] Eosinophils Absolute 0.02 0.00 - 0.50 10*3/uL LAB HEMATOLOGY METHOD 03/19/2025 1:12 AM EDT [facility] Basophils Absolute 0.08 0.00 - 0.10 10*3/uL LAB HEMATOLOGY METHOD 03/19/2025 1:12 AM EDT [facility] Immature Granulocytes Absolute 0.90(H) 0.00 - 0.06 10*3/uL LAB HEMATOLOGY METHOD 03/19/2025 1:12 AM EDT [facility] Blood Venous blood specimen / Unknown Venipuncture / Unknown 03/19/2025 12:52 AM EDT 03/19/2025 1:08 AM EDT Narrative [facility] - 03/19/2025 1:12 AM EDT Therapeutic decision making should be based on absolute values, rather than percentages. us Abbe Ramires MD LAB BLOOD ORDERABLES Final Resul t [facility] [address] [place] [address] * (ABNORMAL) BMP (03/19/2025 12:52 AM EDT) Glucose, Plasma 79 74 - 99 mg/dL 03/19/2025 1:31 AM EDT [facility] BUN, Plasma 22(H) 7 - 21 mg/dL 03/19/2025 1:31 AM EDT [facility] Creatinine, Plasma 0.92 0.60 - 1.10 mg/dL 03/19/2025 1:31 AM EDT [facility] BUN/Creatinine Ratio 24 03/19/2025 1:31 AM EDT [facility] Sodium, Plasma 143 136 - 145 mmol/L 03/19/2025 1:31 AM EDT [facility] Potassium, Plasma 3.2(L) 3.6 - 4.9 mmol/L 03/19/2025 1:31 AM EDT [facility] Chloride, Plasma 110(H) 97 - 107 mmol/L 03/19/2025 1:31 AM EDT [facility] CO2, Plasma 21(L) 22 - 29 mmol/L 03/19/2025 1:31 AM EDT [facility] Anion Gap 12 6 - 16 mmol/L 03/19/2025 1:31 AM EDT [facility] Total Calcium, Plasma 8.4(L) 8.9 - 10.2 mg/dL 03/19/2025 1:31 AM EDT [facility] eGFRcr 80.4 mL/min/1.7 3m*2 03/19/2025 1:31 AM EDT [facility] Comment:Reported eGFRcr in m L/min/1.73m2 is based the CKD-EPI 2020 equation that does not use a race coefficient. Blood Venous blood specimen / Unknown Venipuncture / Unknown 03/19/2025 12:52 AM EDT 03/19/2025 1:07 AM EDT us Abbe Ramires MD LAB BLOOD ORDERABLES Final Resul t [facility] [address] [place] [address] * Morphology (02/27/2025 11:23 PM EDT) RBC Morphology RBC Morphology Consistent with Indices and RDW LAB HEMATOLOGY METHOD 02/27/2025 11:58 PM EDT [facility] Platelet Estimate Platelet smear estimate consistent with automated count LAB HEMATOLOGY METHOD 02/27/2025 11:58 PM EDT [facility] Blood Venous blood specimen / Unknown Venipuncture / Unknown 02/27/2025 11:23 PM EDT 02/27/2025 11:25 PM EDT García Matias MD LAB BLOOD ORDERABLES Final Result [facility] [address] [place] [id number] * (ABNORMAL) Manual Differential (02/27/2025 11:23 PM EDT) Blasts % 0 % LAB HEMATOLOGY METHOD 02/27/2025 11:58 PM EDT [facility] Promyelocytes % 0 % LAB HEMATOLOGY METHOD 02/27/2025 11:58 PM EDT [facility] Myelocytes % 4 % LAB HEMATOLOGY METHOD 02/27/2025 11:58 PM EDT [facility] Metamyelocytes % 3 % LAB HEMATOLOGY METHOD 02/27/2025 11:58 PM EDT [facility] Neutrophils % 43 % LAB HEMATOLOGY METHOD 02/27/2025 11:58 PM EDT [facility] Lymphocytes % 20 % LAB HEMATOLOGY METHOD 02/27/2025 11:58 PM EDT [facility] Reactive Lymphocytes % 0 % LAB HEMATOLOGY METHOD 02/27/2025 11:58 PM EDT [facility] Monocytes % 30 % LAB HEMATOLOGY METHOD 02/27/2025 11:58 PM EDT [facility] Eosinophils % 0 % LAB HEMATOLOGY METHOD 02/27/2025 11:58 PM EDT [facility] Basophils % 0 % LAB HEMATOLOGY METHOD 02/27/2025 11:58 PM EDT [facility] Blasts Absolute 0.00 10*3/UL LAB HEMATOLOGY METHOD 02/27/2025 11:58 PM EDT [facility] Promyelocytes Absolute 0.00 10*3/uL LAB HEMATOLOGY METHOD 02/27/2025 11:58 PM EDT [facility] Myelocytes Absolute 0.29 10*3/uL LAB HEMATOLOGY METHOD 02/27/2025 11:58 PM EDT [facility] Metamyelocytes Absolute 0.22 10*3/uL LAB [...] ORDERABLES Final Result [facility] [address] [place] [address] * hCG qualitative (02/27/2025 11:23 PM EDT) Test Negative Negative 02/27/2025 11:47 PM EDT [facility] Blood Venous blood specimen / Unknown Venipuncture / Unknown 02/27/2025 11:23 PM EDT 02/27/2025 11:25 PM EDT Narrative [facility] - 02/27/2025 11:47 PM EDT Reference Range: Males and non- females: Negative. us García Matias MD LAB BLOOD ORDERABLES Final Result Performing Organization Address City/[facility]/ZIP Co de Phone Number [facility] [address] [place] [address] * Magnesium (02/27/2025 11:23 PM EDT) Magnesium, Plasma 2.2 1.9 - 2.4 mg/dL 02/27/2025 11:47 PM EDT [facility] Blood Venous blood specimen / Unknown Venipuncture / Unknown 02/27/2025 11:23 PM EDT 02/27/2025 11:25 PM EDT us García Matias MD LAB BLOOD ORDERABLES Final Result [facility] [address] [place] [address] * (ABNORMAL) CMP (02/27/2025 11:23 PM EDT) Only the most recent of2 resultswithin the time period is included. Glucose, Plasma 110(H) 74 - 99 mg/dL 02/27/2025 11:47 PM EDT [facility] BUN, Plasma 11 7 - 21 mg/dL 02/27/2025 11:47 PM EDT [facility] Creatinine, Plasma 0.80 0.60 - 1.10 mg/dL 02/27/2025 11:47 PM EDT [facility] BUN/Creatinine Ratio 14 02/27/2025 11:47 PM EDT [facility] Sodium, Plasma 142 136 - 145 mmol/L 02/27/2025 11:47 PM EDT [facility] Potassium, Plasma 4.5 3.6 - 4.9 mmol/L 02/27/2025 11:47 PM EDT [facility] Chloride, Plasma 105 97 - 107 mmol/L 02/27/2025 11:47 PM EDT [facility] CO2, Plasma 26 22 - 29 mmol/L 02/27/2025 11:47 PM EDT [facility] Anion Gap 11 6 - 16 mmol/L 02/27/2025 11:47 PM EDT [facility] Total Calcium, Plasma 9.3 8.9 - 10.2 mg/dL 02/27/2025 11:47 PM EDT [facility] Total Protein 6.1(L) 6.3 - 7.9 g/dL 02/27/2025 11:47 PM EDT [facility] Albumin, Plasma 3.9 3.5 - 5.2 g/dL 02/27/2025 11:47 PM EDT [facility] AST, Plasma 29 10 - 35 U/L 02/27/2025 11:47 PM EDT [facility] ALT, Plasma 27 10 - 35 U/L 02/27/2025 11:47 PM EDT [facility] Alkaline Phosphatase, Plasma 132(H) 35 - 104 U/L 02/27/2025 11:47 PM EDT [facility] Total Bilirubin, Plasma <0.2(L) 0.2 - 1.1 mg/dL 02/27/2025 11:47 PM EDT [facility] eGFRcr 95.1 mL/min/1.7 3m*2 02/27/2025 11:47 PM EDT [facility] Comment:Reported eGFRcr in m L/min/1.73m2 is based the CKD-EPI 2020 equation that does not use a race coefficient. Blood Venous blood specimen / Unknown Venipuncture / Unknown 02/27/2025 11:23 PM EDT 02/27/2025 11:25 PM EDT us García Matias MD LAB BLOOD ORDERABLES Final Result Performing Organization Address City/[facility]/ZIP Co de Phone Number [facility] [address] [place] [address] * ED HIV 1/2 Antibody/Antigen Screen w/Reflex [...] MD LAB BLOOD ORDERABLES Final Resul t [facility] [address] [place] [address] * Hepatitis C Virus (HCV) Quantitative PCR - ED (02/07/2025 5:00 PM EDT) [facility] Hepatitis C Virus (HCV) Quantitative Interpretation Not Detected Not Detected. 02/08/2025 2:54 PM EDT [facility] Blood Venous blood specimen / Unknown Venipuncture / Unknown 02/07/2025 5:00 PM EDT 02/07/2025 5:10 PM EDT Narrative [facility] - 02/08/2025 2:54 PM EDT [facility] M2000 HCV test is a Real Time [...] ORDERABLES Final Resul t Performing Organization Address City/[facility]/ZIP Co de Phone Number [facility] [address] [place] [address] * (ABNORMAL) Hepatitis C Antibody - ED (02/07/2025 5:00 PM EDT) [facility] Hepatitis C Antibody Positive(A ) Negative 02/07/2025 6:33 PM EDT [facility] Blood Venous blood specimen / Unknown Venipuncture / Unknown 02/07/2025 5:00 PM EDT 02/07/2025 5:10 PM EDT us Kunal Velázquez MD LAB BLOOD ORDERABLES Final Resul t [facility] [address] [place] [address] * (ABNORMAL) CBC (02/07/2025 5:00 PM EDT) [facility] WBC Count 3.22(L) 3.70 - 10.30 10*3/uL LAB HEMATOLOGY METHOD 02/07/2025 5:29 PM EDT [facility] RBC Count 3.44(L) 3.90 - 5.20 10*6/uL LAB HEMATOLOGY METHOD 02/07/2025 5:29 PM EDT [facility] HGB 10.4(L) 11.2 - 15.7 g/dL LAB HEMATOLOGY METHOD 02/07/2025 5:29 PM EDT [facility] HCT 31.8(L) 34.0 - 45.0 % LAB HEMATOLOGY METHOD 02/07/2025 5:29 PM EDT [facility] Platelet Count 212 155 - 369 10*3/uL LAB HEMATOLOGY METHOD 02/07/2025 5:29 PM EDT [facility] MCV 92 79 - 98 fL LAB HEMATOLOGY METHOD 02/07/2025 5:29 PM EDT [facility] MCH 30.2 26.0 - 32.0 pg LAB HEMATOLOGY METHOD 02/07/2025 5:29 PM EDT [facility] MCHC 32.7 30.7 - 35.5 g/dL LAB HEMATOLOGY METHOD 02/07/2025 5:29 PM EDT [facility] RDW 13.7 11.5 - 14.5 % LAB HEMATOLOGY METHOD 02/07/2025 5:29 PM EDT [facility] MPV 10.4 8.8 - 12.5 fL LAB HEMATOLOGY METHOD 02/07/2025 5:29 PM EDT [facility] nRBC 1.2(H) <=0.0 per 100 WBCs LAB HEMATOLOGY METHOD 02/07/2025 5:29 PM EDT [facility] Blood Venous blood specimen / Unknown Venipuncture / Unknown 02/07/2025 5:00 PM EDT 02/07/2025 5:09 PM EDT us Kunal Velázquez MD LAB BLOOD ORDERABLES Final Resul t Performing Organization Address City/State/[facility] Co de Phone Number [facility] [address] [place] [address] from Last 3 Months Insurance * Guarantor: Anne Kearney Account Type Relation to Patient Date of Phone Billing Address Personal/Family Self 1985 [address] [place] [address] [employer] Care Teams Registered Respiratory Technician Relationship Specialty Start Date End Date Pcp, Mounika [address] [place] [address] PCP - General Family Medicine 02/07/25
--- OUTSIDE RECORDS SUMMARY | 2025-04-09 02:12 | XMS_ITS | Clinical Summary ---
Author Organization [facility] Address [address], [address] [place] [address] Care Team Providers Care Athletic Team Physician Name Role Phone Avila Puri DO Primary Care Provider [phone] Allergies Active Allergy Reactions Criticality Noted Date [...] Type Department Care Team Description 01/10/[address] [place] [address] Floresita Smith, suede cleaner Refill from Last 3 Months Family History Relation [...] Last Indicated Human Metapneumovirus 10/04/2021 10/04/2021 Insurance [facility] Care Teams Athletic Team Physician Relationship Specialty Start Date End Date Avila Puri DO [address] [facility] [address] [place], [place] [phone] PCP - General Family Medicine 10/12/20
--- OUTSIDE RECORDS SUMMARY | 2025-04-09 02:13 | XMS_ITS | Encounter Summary ---
Demographics Address [address] [place] [phone] Mobile Phone Email Address Preferred Language en Marital Status Episcopalian Affiliation Unknown Race White Ethnic Group Not or Lati no Author Organization Healthcare Address [address] [place] [phone] Care Team Providers Care Day Care Worker Name Role Phone Pcp, No Primary [...] on filedocumented in this encounter Care Teams Day Care Worker Relationship Specialty Start Date End Date Pcp, No [address] [place] [address] PCP - General Family Medicine 02/07/25 documented as of this encounter
--- OUTSIDE RECORDS SUMMARY | 2025-04-09 02:13 | XMS_ITS | Encounter Summary ---
Author Organization [facility] Address [address] [place] [address] Care Team Providers Care Bread Slicer Machine Name Role Phone Juan Luis Garza MD Primary Care Provider [phone] Reason for Visit * Reason Onset Date Comments Med Refill 06/17/2023 Encounter Details Date Type Department Care Team (Late st Contact Info) Description 06/17/2023 Refill [facility] [address] [facility] [address] [place] [address] Avila Puri, [address] [facility] [address] [place] [address] Bilateral low back pain, unspecified chronicity, unspecified [...] Description 06/06/2025 10:30 AM EDT Office Visit [facility] [address] [place] [phone] Juan Luis Garza MD [address] [place] [id number] documented as of this encounter Visit Diagnoses Diagnosis Bilateral low back pain, unspecified chronicity, unspecified whether sciatica present documented in this encounter Care Teams Bread Slicer Machine Relationship Specialty Start Date End Date Juan Luis Garza MD [address] [place] [id number] PCP - General Family Medicine 03/02/25 documented as of this encounter
--- OUTSIDE RECORDS SUMMARY | 2025-04-09 02:13 | XMS_ITS | Encounter Summary ---
Demographics Address [address] [place] [address] Mobile Phone Email Address Preferred Language en Marital Status Catholic Affiliation Unknown Race White Ethnic Group Not or Lati no Author Organization Healthcare Address [address] [place] [address] Care Team Providers Care Sea Captain Name Role Phone Pcp, No Primary Care [...] on filedocumented in this encounter Care Teams Sea Captain Relationship Specialty Start Date End Date Pcp, No [address] [place] [address] PCP - General Family Medicine 02/07/25 documented as of this encounter
--- OUTSIDE RECORDS SUMMARY | 2025-04-09 02:13 | XMS_ITS | Encounter Summary ---
Demographics Address [address] [place] [address] Mobile Phone Email Address Preferred Language en Marital Status Hinduism Affiliation Unknown Race White Ethnic Group Not or Lati no Author Organization Healthcare Address [address] [place] [address] Care Team Providers Care Real Estate Closing Coordinator Name Role Phone Pcp, No Primary Care Provider Unavailabl e Encounter Details Date Type Department Care Team (Late st Contact Info) Description 02/07/2025 Patient Outreach [facility] Medicine Specialties [address] [place] [phone] Boni Anna Social History Tobacco Use Types [...] Month) No 02/07/2025 4:30 PM EDT Geri Brafield RN 2. Non-Specific Active Suici cyndie Thoughts (Past 1 Month) No 02/07/2025 4:30 PM EDT Jet Barfield RN 6. Suicidal Behavior (Lifetime) No 4:30 PM EDT Geri Barfield RN documented as of this encounter Plan of Treatment Not on file documented as of this encounter Visit Diagnoses Not on filedocumented in this encounter Care Teams Real Estate Closing Coordinator Relationship Specialty Start Date End Date Pcp, No [address] [place] [address] PCP - General Family Medicine 02/07/25 documented as of this encounter
[2025-04-09 02:16] VITALS: BP 133/116; PULSE 84; RESP 18; TEMP 37; O2SAT 99; BMI 27.4
[2025-04-09 02:29] VITALS: BP 131/79; PULSE 79; O2SAT 98
--- NOTE | 2025-04-09 02:34 | CT_ITS ---
PROCEDURE INFORMATION: Exam: CT Cervical Spine Without Contrast Exam date and time: 04/09/2025 3:11 AM Age: 40 years old Clinical indication: Other: Paresthesias bue, R worse than L; Additional info: Paresthesias bue, R worse than L, HX ddd TECHNIQUE: Imaging protocol: Computed tomography of the cervical spine without contrast. Radiation optimization: All CT scans at this facility use at least one of these dose optimization techniques: automated exposure control; mA and/or kV adjustment per patient size (includes targeted exams where dose is matched to clinical indication); or iterative reconstruction. COMPARISON: No relevant prior studies available. FINDINGS: Bones: No acute fracture. Normal alignment. There are mild degenerative changes present most prominent at C5-C6 where there is a posterior osteophyte disc complex. Moderate left-sided neural foraminal narrowing is noted at C5-C6. Lungs: Lung apices are normal. Soft tissues: Unremarkable. IMPRESSION: 1. No acute cervical spine fracture. 2. Mild to moderate degenerative changes most prominent at C5-C6 with a moderate left neural foraminal stenosis. Consider MRI for further characterization as clinically indicated.
--- NOTE | 2025-04-09 02:42 | [facility].EDGENADL ---
Discharge Plan Disposition Patient Disposition: Home, Self-Care Condition: Good Referrals Follow up/Referrals: Provider,Referral, [Primary Care Provider, Medical] - See instructions Activity Restrictions/Add. Instructions Additional Instructions/Restrictions: You were evaluated in the ER and are believed to be appropriate for discharge at this time. Make an appointment with your primary care doctor for reevaluation in a few days. Discussed with them getting scheduled for an outpatient MRI for further evaluation of your neck and low back. Continue taking home medications as prescribed. Return to the ER with new, worsening, or otherwise concerning symptoms. Clinical Impressions Clinical Impression: Degenerative joint disease of cervical spine Print Language Print Language: [place] Citizen Discharge ED Provider: Kellie Pelletier General Adult HPI General Chief complaint: PAIN Stated complaint: tingling R hand, unable to raise arm Time Seen by Provider: 04/09/25 02:14 Mode of Arrival: Ambulatory Source of Information: Patient Description of Symptoms (Recalled from ER Triage Doc. by RN): Pt presents to ED for a plethora of complaints. Pt finished chemo approx 3 weeks ago. Pt states she has R arm numbness & tingling, pt is concerned about ROM of L arm, pt states she has R hip pain that travels down her leg, pt also states she feels like she has a brick on her R knee. Pt states she has pain and weakness all over. Pt also had radiation therapy and that ended approx 4 months ago. Pt had dbl masectomy 07/2024. Pt rates pain 05/18. Pt is A&O*4 and family is bedside. Pt rec'd chemo at [place] and had double masectomy & radiation in [place]. History of Present Illness HPI narrative: 40-year-old female presents to the ER with multiple complaints. Patient has a history of breast cancer with mastectomy, chemo, and radiation. Chemo finished approximately 3 weeks ago. Patient reports a history of degenerative disc disease in the low back and states that she has pain radiating from her low back down the back of the right hip and into the back of the right leg behind the knee. She states this has been an ongoing, progressively worsening problem. She denies saddle anesthesia or bowel or bladder incontinence. She is not paralyzed. She reports generalized weakness, she had 1 episode of emesis a few days ago but has no nausea, vomiting, or abdominal pain since then. No fevers or chills. Patient reports her primary concern tonight is that at least 8 hours prior to arrival when she was in the shower she noticed that her first 2 fingers on her right hand had a pins and needle sensation in the very tip of them. She has full range of motion and strength with no numbness or weakness. She was worried it could potentially be related to her port though she has had this for a long time. She does have some diffuse neck pain without any recent injury. She states she has been having difficulty with range of motion of the left upper extremity since her mastectomy and is not sure if it was because of the lymph node removal under the left arm. Her only acute change tonight is the tingling in the distal tips of the first 2 fingers of the right hand, the rest of her symptoms have been chronic, progressive. She has not sustained any injuries or had any new medication changes or treatments. No other complaints or concerns. Related Data Allergies Allergy/AdvReac Type Severity Reaction Status Date / Time hydrocodone Allergy Hives Verified 03/16/25 19:04 ketorolac (From Toradol) Allergy Hives Verified 03/16/25 19:04 tramadol Allergy Hives Verified 03/16/25 19:04 [facility] Disclaimer: The information contained in this section may have been updated after the patient was seen, as this information can be updated by other users. Social History (Updated 03/16/25 @ 20:17 by FANNIE Patel) Smoking Status: Current every day smoker alcohol intake: never current occupational status: other Travel in the last 8 weeks?: None Have you lived/traveled outside [place] in past 30 days?: No Contact w/someone who lives/traveled outside [place] past 30 days?: No Exposure to someone with infectious disease in past 14 days?: No Do you have a fever (greater than 100.4 F or 38 C)?: No Have you tested positive for COVID-19?: No Exposed to someone with COVID-19 in past 14 days?: No Do you have a sore throat?: No Do you have a cough?: No Do you have any weakness?: No Do you have any diarrhea?: No Are you experiencing any unusual bleeding?: No Do you have any muscle aches/pain?: No Do you have any abdominal pain?: No Are you experiencing loss of taste or smell?: No ROS Obtained: Yes Systems reviewed as appropriate & no additional complaints except as documented Per HPI Physical Exam General General appearance: alert and in no apparent distress Head Head exam: atraumatic and normocephalic Eye Eye exam: Present PERRL and EOMI ENT ENT exam: Present mucous membranes moist Neck Neck exam: Present normal inspection, full ROM and tenderness (Diffuse cervical tenderness without any focal findings, no deformity or step-off, no evidence of traumatic injury) Chest Chest inspection: Present symmetric chest wall rise Respiratory Respiratory exam: Present normal lung sounds bilaterally; Absent respiratory distress, wheezes or stridor Cardiovascular Cardiovascular exam: Present regular rate and normal rhythm Abdominal Exam Abdominal exam: Present soft; Absent distention or tenderness Extremities Exam Extremities exam: Present normal capillary refill; Absent full ROM (Limited range of motion of the left upper extremity, patient has difficulty with abduction above 90 degrees but is able to range it somewhat above this though it is uncomfortable. Range of motion is otherwise full throughout.), edema or joint swelling Back Exam Back exam: Present straight leg raise (R); Absent straight leg raise (L) Neurological Exam Neurological exam: Present alert and oriented X3; Absent motor sensory deficit (Though patient describes a pins and needle sensation of the distal tip of the right index and middle finger, she does not actually have any neurologic deficits appreciated on exam) Psychiatric Psychiatric exam: Present normal affect and normal mood Skin Skin exam: Present warm and dry Medical Decision Making Medical Records Medical records reviewed: Yes I reviewed the patient's medical records. Screening: Per USPSTF and CDC recommendations, given the prevalence of disease in our region, it is our hospital?s policy to screen for HIV and viral Hepatitis for all patients aged 18 and over and those with ongoing risk factors. MR Comment: Multiple previous visits to this ER for pain control while on chemo, recent visit for rash. I reviewed records from , patient has not been there since the middle of March when she was seen for post chemo pain. [place] Inquiry Pt receiving controlled substance: No Vital Signs: 04/09/25 02:16 Temperature 98.6 F Temperature Source Oral Pulse Rate [Left] 84 Respiratory Rate 18 Blood Pressure [Right Arm] 133/116 H Blood Pressure Mean [Right Arm] 121 02 Sat by Pulse Oximetry 99 Oxygen Delivery Method Room Air Lab Data Lab Results 04/09/25 02:28: WBC 7.4, RBC 3.14 L, Hgb 9.7 L, Hct 29.9 L, MCV 95.2, MCH 30.9, MCHC 32.4, RDW 17.3, Plt Count 379, MPV 9.4, Neut % (Auto) 69.0, Lymph % (Auto) 12.3, Runnels % (Auto) 17.6 H, Eos % (Auto) 0.4, Baso % (Auto) 0.4, Neut # (Auto) 5.1, Lymph # (Auto) 0.9, Runnels # (Auto) 1.3 H, Eos # (Auto) 0.0, Baso # (Auto) 0.0, Sodium 138, Potassium 3.6, Chloride 108 H, Carbon Dioxide 26, Anion Gap 7.6, BUN 8, Creatinine 0.70, Estimated Creat Clear 129, Estimated GFR 92, Est GFR ( Amer) 112, Glucose 96, Calcium 9.3, Total Bilirubin 0.3, AST 25, ALT 11 L, Alkaline Phosphatase 91, Total Protein 6.3, Albumin 3.9, Globulin 2.4, Albumin/Globulin Ratio 1.6 04/09/25 02:28 04/09/25 02:28 Orders (Tests/Meds): ED MEDICATIONS Discontinued Medications Generic Name Dose Route Start Last Admin Trade Name Freq PRN Reason Stop Dose Admin Oxycodone HCl 10 mg 04/09/25 03:01 04/09/25 03:07 Oxycodone 5mg Immediate Release Tablet PO 04/09/25 03:02 10 mg ONCE ONE Administration ORDERS Category Date Time Status CT cervical spine wo con Stat Cat Scan 04/09/25 02:34 Completed CBC w/Auto Diff [Complete Blood Count Auto Diff] Stat Lab 04/09/25 02:28 Completed CMP [Comprehensive Metabolic Panel] Stat Lab 04/09/25 02:28 Completed Medical Decision Narrative: In summary, this 40-year-old female with comorbidities described in the HPI presents to the emergency department today with multiple complaints including back pain radiating through the right hip and down the back of the right leg as well as paresthesias in the distal tips of the index and middle finger on the right hand. On initial evaluation patient is hemodynamically stable, afebrile, GCS 15, neurologically intact throughout, patient does have positive straight leg raise on the right, no midline tenderness, deformity, or step-off of the lumbar spine. Patient has diffuse cervical tenderness without focal abnormality or evidence of acute traumatic injury, neurovascularly intact throughout, there are no neurologic deficits despite the description of paresthesias in the right index and middle finger.. Differential diagnosis includes but is not limited to muscle spasm, degenerative disc disease, sciatica, considered cervical radiculopathy with the description of paresthesias. I had initially considered stroke because patient when she arrived stated she had numbness in the right hand, on exam and further history her descriptions are consistent with a peripheral not central cause. She does not have clinical evidence of carpal tunnel syndrome. No tenderness over the carpal tunnel, cannot elicit or alleviate patient's symptoms with pressure over the carpal tunnel region, negative Phalen. I was also possible patient is still experiencing side effects of chemotherapy and developing neuropathy. Based on these concerns, I ordered basic serum labs, CT cervical spine. Her other complaints are chronic and do not have any red flag symptoms so I do not believe they require acute workup at this time. ECG personally interpreted demonstrates normal sinus rhythm, rate 76, normal axis, normal ID QTc, no STEMI. I initially did not administer any medications to the patient. She has frequently presented here requesting specific pain medications and has been seen at multiple other facilities requesting pain medications as well which always makes me concerned for the potential goal of secondary gain. Patient is a cancer patient and I suspect she does have real pain, however since she did not initially request any pain medications none were administered. She did complain of pain later so a single home dose of oxycodone for this patient was administered. Labs personally reviewed demonstrate no leukocytosis, anemia improved from prior, platelets normal, CMP nonactionable. CT cervical spine personally interpreted demonstrates degenerative changes but no other acute pathology. See radiology read for final interpretation. On reassessment patient is appropriate for discharge. I gave her instructions for continued symptomatic monitoring and management at home as well as recommendations for outpatient follow-up with PCP to pursue outpatient MRI. She was also given strict return precautions for the ER. She indicated understanding and the patient was discharged in stable condition. Critical Care Critical Care Time Critical Care Time: No
[2025-04-09 02:44] LABS: Hematocrit 29.9 % (37.0-47.0); Hemoglobin 9.7 g/dL (12.2-16.2); Immature Granulocytes % 0.3 %; Mean Corpuscular HGB Conc 32.4 g/dL (31.8-35.4); Mean Corpuscular Hemoglobin 30.9 pg (27.0-31.2); Mean Corpuscular Volume 95.2 fl (81-99); Nucleated Red Blood Cells % 0 %; Platelet Count 379 K/mm3 (142-424); Red Blood Count 3.14 M/mm3 (4.20-5.40); Red Cell Distribution Width-SD 60.3 fL; White Blood Count 7.4 K/mm3 (4.8-10.8)
[2025-04-09 02:45] VITALS: BP 122/76; PULSE 80; O2SAT 100
[2025-04-09 02:57] LABS: Alanine Aminotransferase 11 U/L (12-78); Albumin Level 3.9 g/dl (3.5-5.0); Albumin/Globulin Ratio 1.6 (1.1-1.8); Alkaline Phosphatase 91 U/L (38-126); Anion Gap 7.6 mEq/L (5-15); Aspartate Amino Transferase 25 U/L (14-36); Bilirubin,Total 0.3 mg/dl (0.2-1.3); Blood Urea Nitrogen 8 mg/dl (7-17); Calcium 9.3 mg/dl (8.4-10.2); Carbon Dioxide 26 mmol/L (22.0-30.0); Chloride 108 mmol/L (98-107); Creatinine Clearance Estimated 129 mL/min (50-200); Creatinine,Serum 0.70 mg/dl (0.52-1.04); Estimated Glomerular Filt Rate 92 ml/min (>60); GFR (African American) 112 ML/MIN (>60); Globulin 2.4 g/dL (1.3-3.2); Glucose 96 mg/dl (74-100); Potassium 3.6 mmoL/L (3.5-5.1); Sodium 138 mmol/L (136-145); Total Protein,Serum 6.3 g/dl (6.3-8.2)
[2025-04-09] MEDS: OXYCODONE 5MG IMMEDIATE RELEASE TABLET 10 MG PO (03:07)
[2025-04-09 03:19] VITALS: BP 132/69; PULSE 95; O2SAT 95
[2025-04-09 04:00] VITALS: BP 131/62; PULSE 80; RESP 16; TEMP 36.4; O2SAT 98
[2025-04-09 04:42] VITALS: BP 131/62; PULSE 80; RESP 16; TEMP 36.4; O2SAT 98
== END 2025-04-09 04:44 | disposition home or self-care (01) ==
PROVIDERS: Emergency Provider Emergency Medicine
DX: M47.812 Spondylosis without myelopathy or radiculopathy, cervical region (principal)
CPT/HCPCS: 72125; 80053; 85025; 93005; 96374; 99284; J1642